=== PATIENT | female | born 1955 | race Caucasian/White ===

== ENCOUNTER → 2017-03-08 | Outpatient (CLI) | payer MEDICAID ==
[2017-03-08 11:46] LABS: BASOPHILS # (AUTO) 0.1 10^3/uL (0.0-0.1); BASOPHILS % (AUTO) 1 % (0-10); EOSINOPHILS # (AUTO) 0.2 10^3/uL (0.0-0.3); EOSINOPHILS % (AUTO) 3 % (0-10); LYMPHOCYTES # (AUTO) 2.1 X 10^3 (1.0-4.0); LYMPHOCYTES % (AUTO) 24 % (12-44); MEAN CORPUSCULAR HEMOGLOBIN 27 PG (25-34); MEAN CORPUSCULAR HGB CONC 32 G/DL (32-36); MEAN CORPUSCULAR VOLUME 84 FL (80-99); MEAN PLATELET VOLUME 10.5 FL (7.4-10.4); MONOCYTES # (AUTO) 0.4 X 10^3 (0.0-1.0); MONOCYTES % (AUTO) 5 % (0-12); NEUTROPHILS # (AUTO) 5.9 X 10^3 (1.8-7.8); NEUTROPHILS % (AUTO) 68 % (42-75); PLATELET COUNT 216 10^3/uL (130-400); RED BLOOD COUNT 4.88 10^6/uL (4.35-5.85); RED CELL DISTRIBUTION WIDTH 15.9 % (10.0-14.5); WHITE BLOOD COUNT 8.7 10^3/uL (4.3-11.0)
[2017-03-08 12:11] LABS: EOSINOPHILS % (MANUAL) 5 %; LYMPHOCYTES % (MANUAL) 19 %; NEUTROPHILS % (MANUAL) 71 %; REACTIVE LYMPHOCYTES 2 %
[2017-03-08 12:21] LABS: ERYTHROCYTE SEDIMENTATION RATE 6 MM/HR (0-30)
[2017-03-08 13:53] LABS: ALANINE AMINOTRANSFERASE 18 U/L (0-55); ANION GAP 11 MMOL/L (5-14); ASPARTATE AMINO TRANSFERASE 16 U/L (5-34); BILIRUBIN,TOTAL 0.6 MG/DL (0.1-1.0); BLOOD UREA NITROGEN 14 MG/DL (7-18); BUN/CREATININE RATIO 18; CALCIUM 9.5 MG/DL (8.5-10.1); CARBON DIOXIDE 22 MMOL/L (21-32); CHLORIDE 109 MMOL/L (98-107); CREATININE SERUM 0.78 MG/DL (0.60-1.30); GFR ESTIMATED > 60; GLUCOSE 92 MG/DL (70-105); POTASSIUM 3.4 MMOL/L (3.6-5.0); SODIUM 142 MMOL/L (135-145); TOTAL PROTEIN 6.3 G/DL (6.4-8.2)
[2017-03-10 07:36] LABS: GLOMERULAR BASEMENT MEMB ABY 1.6 (0.0-19.9)
== END ==
LOC: LAB 11:17
PROVIDERS: ATTEND Nurse Practitioner Family
DX: R59.0 Localized enlarged lymph nodes (principal)
CPT/HCPCS: 36415; 80053; 83880; 85007; 85027; 85652; 86003; 86021; 86038; 86141; 86256; 86430

== ENCOUNTER 2017-03-12 05:51 | Outpatient (CLI) | payer MEDICAID ==
[~2017-03-12] VITALS: Ht 165.1 cm; Wt 93.0 kg
[2017-03-12] MEDS ORDERED: CETI10TA17 PO (13:40)
[2017-03-12] MEDS ORDERED: ALBU90AE IH (13:40)
[2017-03-12] MEDS ORDERED: FURO40TA4 PO (13:40)
[2017-03-12] MEDS ORDERED: AMLO10TA2 PO (13:40)
[2017-03-12] MEDS ORDERED: FLUT1BLS IH (13:40)
[2017-03-12] MEDS ORDERED: TIOT18CA2 IH (13:40)
[2017-03-12] MEDS ORDERED: NITR0.4T39 SL (13:40)
[2017-03-12] MEDS ORDERED: PROM5SYR PO (13:40)
[2017-03-12] MEDS ORDERED: ALBU2.5V4 IH (13:40)
[2017-03-12] MEDS ORDERED: PARO30TA3 PO (13:40)
[2017-03-12] MEDS ORDERED: BNZ40T PO (13:40)
[2017-03-12] MEDS ORDERED: OMEP20TA33 PO (13:40)
[2017-03-12] MEDS ORDERED: GABA300C PO (13:40)
[2017-03-12] MEDS ORDERED: ATOR80TA76 PO (13:40)
[2017-03-12] MEDS ORDERED: ISM60TCR PO (13:40)
[2017-03-12] MEDS ORDERED: CLOP75TA69 PO (13:40)
[2017-03-12] MEDS ORDERED: MONT10TA24 PO (13:40)
[2017-03-12] MEDS ORDERED: POTA-51 PO (13:40)
[2017-03-12] MEDS ORDERED: CARV12.53 PO (13:40)
[2017-03-12] MEDS ORDERED: PRD10T PO (13:40)
[2017-03-12] MEDS ORDERED: DOXA4TAB2 PO (13:40)
[2017-03-12] MEDS ORDERED: APIX2.5T PO (13:40)
[2017-03-12] MEDS ORDERED: IBUP-1780 PO (13:40)
[2017-03-12] MEDS ORDERED: FLUT9.9S NS (13:40)
[2017-03-12] MEDS ORDERED: AMIO400T4 PO (13:40)
[2017-03-12] MEDS ORDERED: ZOLP5TAB7 PO (13:40)
[2017-03-12] MEDS ORDERED: OLAN10TA3 PO (13:40)
== END 2017-03-12 13:42 ==
LOC: PREOP 05:51
PROVIDERS: ATTEND Internal Medicine Critical Care Medicine
DX: Z01.818 Encounter for other preprocedural examination (principal); R06.09 Other forms of dyspnea; J45.909 Unspecified asthma, uncomplicated; R93.8 Abnormal findings on diagnostic imaging of other specified body structures; R59.0 Localized enlarged lymph nodes; Z77.22 Contact with and (suspected) exposure to environmental tobacco smoke (acute) (chronic)

== ENCOUNTER 2017-03-14 06:41 | Day surgery (SDC) | payer MEDICAID ==
[~2017-03-14] VITALS: Ht 165.1 cm; Wt 93.0 kg
[~2017-03-14 06:41] MED LIST: ALBU2.5V4 IH; ALBU90AE IH; AMIO400T4 PO; AMLO10TA2 PO; APIX2.5T PO; ATOR80TA76 PO; BNZ40T PO; CARV12.53 PO; CETI10TA17 PO; CLOP75TA69 PO; DOXA4TAB2 PO; FLUT1BLS IH; FLUT9.9S NS; FURO40TA4 PO; GABA300C PO; IBUP-1780 PO; ISM60TCR PO; MONT10TA24 PO; NITR0.4T39 SL; OLAN10TA3 PO; OMEP20TA33 PO; PARO30TA3 PO; POTA-51 PO; PRD10T PO; PROM5SYR PO; TIOT18CA2 IH; ZOLP5TAB7 PO
[2017-03-14] MEDS ORDERED: NS IV 1000 ML 1,000 ML IV PRN (06:50)
[2017-03-14] MEDS ORDERED: NS IV 1000 ML 1,000 ML ONE (06:51)
--- NOTE | 2017-03-14 06:51 | Progress Note-Pre Operative ---
Pre-Operative Progress Note H&P Reviewed The H&P was reviewed, patient examined and no changes noted. Date H&P Reviewed: March 14, 2017 Time H&P Reviewed: 06:50 Pre-Operative Diagnosis: DRISS Méndez DO March 14, 2017 06:51
[2017-03-14] MEDS ORDERED: NALOXONE 0.4 MG/ML 1 ML (NARCAN) VIAL IVP PRN (07:00)
[2017-03-14] MEDS ORDERED: FLUMAZENIL (ROMAZICON) 0.1 MG/ML 5 ML VIAL INJ PRN (07:00)
[2017-03-14] MEDS ORDERED: LIDOCAINE 4% INJ (XYLOCAINE) 5ML AMP INH ONE (07:04)
[2017-03-14 07:08] VITALS: BP 199/135
[2017-03-14] MEDS ORDERED: MIDAZOLAM 2 MG/2 ML (VERSED) VIAL ONE ×3 (07:15→07:16)
[2017-03-14] MEDS ORDERED: fentaNYL INJECTION 100 MCG/2 ML AMP ONE ×2 (07:15→07:38)
[2017-03-14] MEDS ORDERED: hydrALAZINE (APESOLINE) 20 MG/ML VIAL ONE (07:28)
[2017-03-14] MEDS: fentaNYL INJECTION 100 MCG/2 ML AMP IVP PRN ×4 (07:30→07:41)
[2017-03-14] MEDS: MIDAZOLAM 2 MG/2 ML (VERSED) VIAL IVP PRN ×4 (07:31→07:42)
--- NOTE | 2017-03-14 08:04 | Pulmonary Procedures ---
Pulmonary Procedures Date of Procedure Date of Service: March 14, 2017 Bronch Bronchoscopy with bronchoalveolar lavage (BAL), transbronchial washes and, brushes. with fluoroscopy Preop DX ILD Postop DX: same , no endobronchial mass Complications:Hypertension -- pt was given 10mg of hydralazine prior to bronch secondary to SBP >200. BP then decreased to SBP 186 After informed consent obtained and formal time out pt was sedated using Fentanyl and Versed. Bronchoscope was advanced through the nare and vocal cords. 1% lidocaine was used to anesthetize vocal cords, epiglottis, melecio, and left/right main stem bronchus. An anatomical tour was undertaken down to the segmental bronchi bilaterally. No endobronchial lesions noted. From the RML using fluoroscopy a bronchoalveolar lavage (BAL), transbronchial washes and, brushes were obtained. Pt tolerated procedure well. No complications noted. Stat CXR is pending. DRISS FUNES DO March 14, 2017 08:04
[2017-03-14 08:15] VITALS: BP 171/95
--- NOTE | 2017-03-14 08:44 | Diagnostic Imaging Report ---
INDICATION: Post bronchoscopy. Frontal chest obtained at 8:20 a.m. There is no prior study for comparison. FINDINGS: There is cardiomegaly. There is central vascular congestion. There is prominence of the right hilum. There is no pneumothorax or pleural fluid post-bronchoscopy. IMPRESSION: Cardiomegaly and central vascular prominence. There is right hilar prominence, adenopathy is not excluded. There is no pneumothorax following bronchoscopy. Dictated by: Dictated on workstation # [id number]
[2017-03-14 08:45] VITALS: BP 165/109
[2017-03-14] MEDS ORDERED: hydrALAZINE (APESOLINE) 20 MG/ML VIAL IV ONE (08:45)
[2017-03-14 09:00] VITALS: BP 165/109
[2017-03-14] MEDS ORDERED: LIDOCAINE JELLY 2% (XYLOCAINE) 30 ML TUBE TOP ONE (09:24)
[2017-03-14] MEDS ORDERED: LIDOCAINE PF 1% 2 ML AMP INJ ONE (09:24)
--- NOTE | 2017-03-14 09:59 | Diagnostic Imaging Report ---
EXAMINATION: Intraoperative view of the chest. INDICATION: Bronchoscopy performed by Dr. Thomas. FLUOROSCOPY TIME: 20 seconds of fluoroscopy time was utilized. IMPRESSION: The provided image demonstrates a bronchoscope projecting over the right perihilar region. Dictated by: Dictated on workstation # [id number]
== END 2017-03-14 09:00 | disposition home or self-care (01) ==
LOC: ENDO 06:41
PROVIDERS: ATTEND Internal Medicine Critical Care Medicine
DX: J84.9 Interstitial pulmonary disease, unspecified (principal); J45.909 Unspecified asthma, uncomplicated; J44.9 Chronic obstructive pulmonary disease, unspecified; G47.34 Idiopathic sleep related nonobstructive alveolar hypoventilation; Z77.22 Contact with and (suspected) exposure to environmental tobacco smoke (acute) (chronic); G47.50 Parasomnia, unspecified; R59.0 Localized enlarged lymph nodes
CPT/HCPCS: 71010; 87070; 87101; 87116; 87205; 94640

== ENCOUNTER → 2017-03-20 | Outpatient (CLI) | payer MEDICAID ==
--- NOTE | 2017-03-21 20:37 | ECHOCARDIOGRAPHY REPORT ---
DATE OF SERVICE: 03/20/2017 TRANSTHORACIC ECHOCARDIOGRAM REPORT ORDERING PHYSICIAN: Rosina Horan APRN. PRIMARY PHYSICIAN: Dr. Henriquez. CLINICAL DIAGNOSIS: Shortness of breath. MEASUREMENTS: LV diameter, diastolic 5.6. IVS thickness, diastolic 1.7. LVPW thickness, diastolic 1.3. Left atrium 6.1. DESCRIPTION: Two-dimensional echocardiography shows mild enlargement left ventricle and marked enlargement of the left atrium. There is mild to moderate concentric left ventricular hypertrophy. Global left ventricular systolic function is impaired. There appears to be global hypokinesis left ventricle. Left ventricular ejection fraction is estimated to be approximately 45 to 50%. There is biatrial enlargement. Doppler imaging shows mild mitral regurgitation and moderate tricuspid regurgitation. There is no Doppler evidence of significant valvular stenosis. There is a small amount of pericardial fluid, which does not appear to be of hemodynamic significance. Inferior vena cava is mildly dilated. She does appear to have inspiratory collapse. There is no evidence of significant intracardiac shunt on this transthoracic echocardiographic study. Pulmonary artery systolic pressure is estimated to be approximately 80 mmHg. Mitral inflow is consistent with grade II diastolic dysfunction of the left ventricle. CONCLUSIONS: 1. Pulmonary hypertension with an estimated pulmonary artery systolic pressure of approximately 80 mmHg. 2. Mild global hypokinesis of the left ventricle with a left ventricular ejection fraction of 45 to 50%. 3. Mild enlargement of left ventricle. 4. Marked enlargement of the left atrium. 5. Mild mitral annular calcification and mild aortic valve sclerosis without evidence of significant valvular stenosis. 6. Mild mitral regurgitation. 7. Moderate tricuspid regurgitation. 8. Small pericardial effusion without evidence of hemodynamic significance. 9. Moderate diastolic dysfunction of left ventricle is suggested on this study. Job ID: [id number] DocumentID: [id number] Dictated Date: 03/20/2017 16:48:13 Banquet Stewardess Date: 03/20/2017 22:37:31 Dictated By: ADALBERTO JUAN MD, MA, FACP, FACC, MTDD
== END ==
LOC: CARD 13:58
PROVIDERS: ATTEND Nurse Practitioner Family
DX: I08.3 Combined rheumatic disorders of mitral, aortic and tricuspid valves (principal); R06.09 Other forms of dyspnea
CPT/HCPCS: 93306

== ENCOUNTER 2017-07-10 09:52 | Inpatient (IN) | payer MEDICAID ==
[~2017-07-10] VITALS: Ht 165.1 cm; Wt 93.7 kg
[~2017-07-10 09:52] MED LIST changes: -ALBU2.5V4 IH; +ALBU2.5V4 NEB
--- NOTE | 2017-07-10 10:02 | Pulmonary Progress Note ---
Standard Progress Note Progress Notes Date Seen by Provider: Jul 10, 2017 Time Seen by Provider: 09:58 61 yo female who is being directly admitted from our office to the 4th floor for PNA R/O Pulmonary Hemorrhage. Pt denies hemoptysis but reports that her shortness of breath has worsened x 1 wk. Pt is known to our office and had bronch in February but was a no show to f/u appt. She was treated at that time for PNA. She did get a recent ct in [facility] and report noted b/l infiltrates. Please refer to office note from today's visit for further information. NAYE MCCABE APRN Jul 10, 2017 10:02
[2017-07-10 10:05] VITALS: BP 142/89
[2017-07-10] MEDS ORDERED: IOHEXOL 350 MG/ML 150 ML (OMNIPAQUE 350) VIAL IV ONE (10:45)
[2017-07-10] MEDS ORDERED: CATHETER FLUSH 10 ML SYR IV PRN (10:45)
[2017-07-10] MEDS ORDERED: NS 100 ML (IVPB) BAG IV ONE (10:45)
[2017-07-10] MEDS: RT-ALBUTEROL SULF 2.5 MG/3 ML PRE-MIX VIAL IH PRN (10:55)
[2017-07-10] MEDS ORDERED: OMEP20CA12 PO (11:01)
[2017-07-10] MEDS ORDERED: CARV6.252 PO (11:01)
[2017-07-10] MEDS ORDERED: CLOP75TA28 PO (11:01)
[2017-07-10] MEDS ORDERED: TIOT4MIS5 INH (11:01)
[2017-07-10] MEDS ORDERED: HYDR25TA4 PO (11:01)
[2017-07-10] MEDS: NS IV 1000 ML 1,000 ML IV SCH ×2 (11:28→23:12)
[2017-07-10] MEDS: methylPREDNISolone 40 MG/ML (Solu-MEDROL) VIAL IV SCH ×3 (11:28→22:28)
[2017-07-10] MEDS: FAMOTIDINE 20 MG (PEPCID) TABLET PO SCH ×2 (11:34→19:37)
[2017-07-10 11:38] LABS: BASOPHILS % (AUTO) 1 % (0-10); EOSINOPHILS # (AUTO) 0.3 10^3/uL (0.0-0.3); EOSINOPHILS % (AUTO) 3 % (0-10); LYMPHOCYTES # (AUTO) 2.4 X 10^3 (1.0-4.0); LYMPHOCYTES % (AUTO) 28 % (12-44); MEAN CORPUSCULAR HEMOGLOBIN 28 PG (25-34); MEAN CORPUSCULAR HGB CONC 33 G/DL (32-36); MEAN CORPUSCULAR VOLUME 85 FL (80-99); MEAN PLATELET VOLUME 11.4 FL (7.4-10.4); MONOCYTES # (AUTO) 0.5 X 10^3 (0.0-1.0); MONOCYTES % (AUTO) 6 % (0-12); NEUTROPHILS # (AUTO) 5.4 X 10^3 (1.8-7.8); NEUTROPHILS % (AUTO) 63 % (42-75); PLATELET COUNT 195 10^3/uL (130-400); RED BLOOD COUNT 4.95 10^6/uL (4.35-5.85); RED CELL DISTRIBUTION WIDTH 15.1 % (10.0-14.5); WHITE BLOOD COUNT 8.6 10^3/uL (4.3-11.0)
[2017-07-10 11:48] LABS: INR 1.1 (0.8-1.4); PROTHROMBIN TIME PATIENT 14.4 SEC (12.2-14.7)
[2017-07-10 12:00] VITALS: BP 165/83
[2017-07-10 12:05] LABS: ALANINE AMINOTRANSFERASE 16 U/L (0-55); ALBUMIN 3.8 GM/DL (3.2-4.5); ANION GAP 10 MMOL/L (5-14); ASPARTATE AMINO TRANSFERASE 20 U/L (5-34); BLOOD UREA NITROGEN 11 MG/DL (7-18); BUN/CREATININE RATIO 15; CALCIUM 9.5 MG/DL (8.5-10.1); CARBON DIOXIDE 23 MMOL/L (21-32); CHLORIDE 110 MMOL/L (98-107); CREATININE SERUM 0.72 MG/DL (0.60-1.30); GFR ESTIMATED > 60; GLUCOSE 96 MG/DL (70-105); POTASSIUM 3.5 MMOL/L (3.6-5.0); SODIUM 143 MMOL/L (135-145); TOTAL PROTEIN 6.5 GM/DL (6.4-8.2)
[2017-07-10 13:59] LABS: BILIRUBIN,URINE NEGATIVE (NEGATIVE); KETONES,URINE NEGATIVE (NEGATIVE); LEUKOCYTE ESTERASE ,URINE 3+ (NEGATIVE); NITRITE,URINE NEGATIVE (NEGATIVE); PH,URINE 7 (5-9); PROTEIN,URINE 2+ (NEGATIVE); UROBILINOGEN,URINE NORMAL (NORMAL)
[2017-07-10 14:09] LABS: WBC,URINE 25-50 /HPF
[2017-07-10] MEDS ORDERED: CYCL10TA9 PO (14:18)
[2017-07-10] MEDS ORDERED: RT-ALBUINH INH (14:22)
[2017-07-10] MEDS ORDERED: FLUT16SP22 NS (14:27)
[2017-07-10] MEDS: RT-ALBUTEROL SULF 2.5 MG/3 ML PRE-MIX VIAL IH SCH ×2 (15:05→21:58)
[2017-07-10 15:30] VITALS: BP 150/90
--- NOTE | 2017-07-10 15:34 | Diagnostic Imaging Report ---
PROCEDURE: CT angiography of the chest with contrast. TECHNIQUE: Multiple contiguous axial images were obtained through the chest after uneventful bolus administration of intravenous contrast. Reconstructed CTA MIP acquisitions were also performed. INDICATION: Shortness of breath. Wheezing. 125 ML of Omnipaque 350 was administered intravenously. FINDINGS: The thyroid gland is heterogenous and is enlarged, more on the right side with the right thyroid lobe measuring in axial dimensions 5.8 x 4.2 cm. Further evaluation with thyroid ultrasound is recommended. There are multiple moderately enlarged mediastinal lymph nodes such as a right paratracheal lymph node measuring 1.6 cm superiorly and 1.9 cm inferiorly, infracarinal lymph node measuring 1.7 cm and aortopulmonary window lymph node measuring 1.7 cm. There are also bilateral hilar lymph nodes up to 1.5 cm on the left and 1.2 cm on the right side. These are measured in short axis. There are no significantly enlarged axillary lymph nodes seen. There is cardiomegaly with a small to moderate pericardial effusion. The left atrium and to some extent, to the right atrium also, are particularly dilated. The pulmonary arteries are well opacified with no filling defects seen to suggest pulmonary embolism. Prominent coronary artery calcifications in the left carotid artery distribution are seen. The lungs demonstrate patchy areas of air-trapping without significant consolidation, mass, or suspicious nodule. There are no emphysema changes and no bronchiectasis seen. There is mild subsegmental atelectasis near the lower aspect of the left major fissure. The osseous structures demonstrate multilevel Schmorl's nodes. Sections of the upper abdomen appear grossly unremarkable. Cholecystectomy clips are seen. IMPRESSION: 1. There is prominent mediastinal and bilateral hilar lymphadenopathy. 2. Cardiomegaly with a small to moderate pericardial effusion seen. There is dilatation of the atria. Prominent coronary artery calcifications are seen. 3. Patchy areas of air-trapping are seen in the lungs. Dictated by: Dictated on workstation # [id number]
[2017-07-10 19:25] VITALS: BP 182/98
[2017-07-10] MEDS: CARVEDILOL 6.25 MG (COREG) TAB PO SCH (19:37)
[2017-07-10 23:05] VITALS: BP 185/75
[2017-07-10] MEDS ORDERED: CARVEDILOL 6.25 MG (COREG) TAB PO ONE (23:15)
[2017-07-11 00:25] VITALS: BP 182/83
[2017-07-11] MEDS: RT-ALBUTEROL SULF 2.5 MG/3 ML PRE-MIX VIAL IH SCH ×5 (02:36→21:53)
[2017-07-11 04:00] VITALS: BP 186/89
[2017-07-11] MEDS: methylPREDNISolone 40 MG/ML (Solu-MEDROL) VIAL IV SCH ×4 (04:31→22:39)
[2017-07-11] MEDS: RT-ALBUTEROL SULF 2.5 MG/3 ML PRE-MIX VIAL IH PRN (05:51)
[2017-07-11] MEDS ORDERED: MIDAZOLAM 2 MG/2 ML (VERSED) VIAL ONE (06:53)
[2017-07-11] MEDS ORDERED: PROPOFOL INJECTION 0 ML IV ONE (06:53)
[2017-07-11] MEDS ORDERED: proPOfol 200 MG/20 ML (DIPRIVAN) VIAL IV ONE (06:56)
[2017-07-11] MEDS ORDERED: fentaNYL INJECTION 100 MCG/2 ML AMP ONE (06:57)
[2017-07-11] MEDS ORDERED: ONDANSETRON 4 MG/2 ML (SDV) Z0FRAN ONE (06:57)
[2017-07-11] MEDS ORDERED: LIDOCAINE PF 2% 5 ML (XYLOCAINE) VIAL ONE (06:57)
--- NOTE | 2017-07-11 07:03 | Pulmonary Consultation ---
History of Present Illness History of Present Illness Date of Consultation 07/11/17 06:58 Time Seen by Provider: 06:58 Date of Admission History of Present Illness 61 yo who was directly admitted from my office to the 4th floor yesterday secondary to worsening SOB and wheezing. Pt had an out patient bronchoscopy in February which was suggestive of pulmonary hemorrhage and grew out strep pneumonia. PT was treated with abx and then failed to f/u at followup appt. Over the last week patients SOB has been getting much worse. She denies hemoptysis however has been having subjective fevers. Recent CT report from [place] showed bilateral infiltrates. Pt states she has not been able to sleep at night secondary to severe SOB. Pt did have autoimmune workup done as outpatient which was all negative. Allergies and Home Medications Allergies Coded Allergies: Penicillins (Verified Allergy, Unknown, 03/12/17) Sulfa (Sulfonamide Antibiotics) (Verified Allergy, Unknown, 03/12/17) adhesive tape (Verified Allergy, Unknown, 03/12/17) Home Medications Albuterol Sulfate 2.5 Mg/3 Ml Vial.neb, 2.5 MG NEB Q4H PRN for SHORTNESS OF BREATH, (Reported) Albuterol Sulfate 1 Puff Puff, 2 PUFF INH Q4H PRN for SHORTNESS OF BREATH, ( Reported) Carvedilol 6.25 Mg Tablet, 6.25 MG PO BID, (Reported) Clopidogrel Bisulfate 75 Mg Tablet, 75 MG PO DAILY, (Reported) Cyclobenzaprine HCl 10 Mg Tablet, 10 MG PO TID PRN for MUSCLE SPASMS, (Reported) Fluticasone Propionate 16 Gm [place].susp, 2 SPRAY NS DAILY PRN for ALLERGIES, ( Reported) Hydrochlorothiazide 25 Mg Tablet, 25 MG PO DAILY, (Reported) Montelukast Sodium 10 Mg Tablet, 10 MG PO DAILY, (Reported) Nitroglycerin 0.4 Mg Tab.subl, 0.4 MG SL UD PRN for CHEST PAIN, (Reported) Omeprazole 20 Mg Capsule.dr, 20 MG PO DAILY PRN for HEARTBURN, (Reported) Tiotropium [place] 4 Gm Mist.inhal, 2 PUFF INH DAILY, (Reported) Past [id number]-[id number]-Gmzemx Hx Patient Social History Alcohol Use: Denies Use Recreational Drug Use: No Smoking Status: Never a Smoker Recent Foreign Travel: No Contact w/Someone Who Travel: No Recent Infectious Disease Expo: No Recent Hopitalizations: Yes (LUNG ISSUES-02/2017) Seasonal Allergies Seasonal Allergies: Yes Surgeries History of Surgeries: Yes (biospsy left breast) Respiratory History of Respiratory Disorde: Yes (O2 HS) Respiratory Disorders: Sleep Apnea, COPD Cardiovascular History of Cardiac Disorders: Yes (STENTS) Cardiac Disorders: High Cholesterol, Hypertension, Irregular Heartbeat Neurological History of Neurological Disord: No Reproductive System Hx Reproductive Disorders: No Sexually Transmitted Disease: No HIV/AIDS: No Genitourinary History of Genitourinary Disor: No Genitourinary Disorders: UTI-Chronic Gastrointestinal History of Gastrointestinal Di: Yes Gastrointestinal Disorders: Gastroesophageal Reflux Musculoskeletal History of Musculoskeletal Dis: Yes Musculoskeletal Disorders: Chronic Back Pain Endocrine History of Endocrine Disorders: Yes HEENT Loss of Vision: Bilateral Hearing Impairment: Denies Cancer History of Cancer: No Psychosocial History of Psychiatric Problem: Yes Behavioral Health Disorders: Anxiety, Depression Integumentary History of Skin or Integumenta: No Blood Transfusions History of Blood Disorders: No Adverse Reaction to a Blood Tr: No (N/A) Family Medical History Family Medial History: Myocardial infarction 19 FATHER G8 SISTER Review of Systems Time Seen by Provider: 08:56 Constitutional: Fever, Sweats, Weakness, Malaise Eyes: No: Pain, Vision change, Conjunctivae inflammation, Eyelid inflammation, Other, Redness ENT: No: Ear pain, Ear discharge, Nose pain, Nose discharge, Nose congestion, Mouth pain, Mouth swelling, Throat pain, Throat swelling, Other Respiratory: Cough, Dry, Shortness of breath, SOB with excertion, Wheezing, No : Hemoptysis, Pleuritic Pain Cardiovascular: Orthopnea, Paroxysmal Noc. Dyspnea, Edema, No: Chest Pain, Palpitations, Lt Headedness, Other Gastrointestinal: No: Nausea, Vomiting, Abdominal Pain, Diarrhea, Constipation , Melena, Hematochezia, Other Neurological: Weakness Exam Exam Vital Signs Date Time Temp Pulse Resp B/P (MAP) Pulse Ox O2 Delivery O2 Flow Rate FiO2 07/11/17 05:52 98 Nasal Cannula 2.00 07/11/17 04:00 97.9 73 19 186/89 93 Nasal Cannula 2.00 07/11/17 01:00 74 07/11/17 00:25 98.9 78 19 182/83 96 Nasal Cannula 2.00 07/10/17 23:05 75 185/75 98 Nasal Cannula 2.00 07/10/17 21:58 95 Room Air 07/10/17 20:12 Nasal Cannula 2.00 07/10/17 19:25 98.2 72 34 182/98 98 Nasal Cannula 2.00 07/10/17 19:00 95 07/10/17 15:30 98.5 76 20 150/90 95 Room Air 07/10/17 15:06 95 Room Air 07/10/17 14:50 80 07/10/17 12:08 75 07/10/17 12:00 98.2 70 32 165/83 96 Room Air 07/10/17 10:55 96 Room Air 07/10/17 10:05 97.7 83 36 142/89 98 Room Air General Appearance: Anxious, Mild Distress, Obese Neck: Non Tender, Supple Respiratory: Accessory Muscle Use (conversational dyspnea), Decreased Breath Sounds Gastrointestinal: normal bowel sounds, non tender, soft, no organomegaly Extremity: Pedal Edema Neurologic/Psychiatric: Alert, Oriented x3 Skin: Normal Color, Warm/Dry Results Lab Laboratory Tests 07/10/17 11:15 Assessment/Plan Assessment/Plan COPDAE/Acute bronchitis -SVNs, advair -Solumedrol -Check BNP Mediastinal lymphadenopathy -Will repeat CT scan as out patient -Pt may need EBUS Pericardial effusion -check echocardiogram Allergic rhinitis -Singulair, Claritin HIRO - 255 CT scan reviewed no signs of pulmonary hemorrhage. Clinical Quality Measures DVT/VTE Risk/Contraindication: Risk Factor Score Per Nursin RFS Level Per Nursing on Admit: 4+=Very High DRISS FUNES DO Jul 11, 2017 07:03
[2017-07-11 08:04] VITALS: BP 190/88
[2017-07-11] MEDS: MONTELUKAST 10 MG (SINGULAIR) TAB PO SCH (08:17)
[2017-07-11] MEDS: CARVEDILOL 6.25 MG (COREG) TAB PO SCH (08:17)
[2017-07-11] MEDS: FAMOTIDINE 20 MG (PEPCID) TABLET PO SCH ×2 (08:17→20:31)
[2017-07-11] MEDS: LORATADINE (CLARITIN) 10 MG TAB PO SCH (08:17)
[2017-07-11] MEDS: NS IV 1000 ML 1,000 ML IV SCH ×2 (08:19→16:43)
[2017-07-11] MEDS ORDERED: HYDROCHLOROTHIAZIDE 25 MG (HCTZ) TAB PO SCH (09:00)
[2017-07-11] MEDS ORDERED: KCL 20 MEQ TAB (K-DUR) PO NR ×2 (09:09→14:00)
[2017-07-11] MEDS: RT-ADVAIR HFA 115/21 MCG PER PUFF IH SCH ×2 (10:42→21:53)
--- NOTE | 2017-07-11 11:49 | History & Physical-Hospitalist ---
HPI History of Present Illness: HPI/Chief Complaint CC: Shortness of breath HPI: This is a 61-year-old lifetime nonsmoker white female that presents to the hospital as a direct admission for Dr. Thomas's office for shortness of breath. Her primary care provider is Dr. Henriquez at [facility]. She reports a history of asthma minimal problems with it but had a change of her status 2 weeks ago and began having more shortness of breath. She obtain an appointment with Dr. Thomas who evaluated her to be wheezing placed on IV steroids and workup was completed that now shows a pericardial effusion echocardiogram was just completed and I did confer with cardiology who will see her in consultation. She denies any history of sleep apnea or sleeping with the machine at night for oxygen. She is anxious about shortness of breath. 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) Alcohol Use: Denies Use Recreational Drug Use: No Smoking Status: Never a Smoker Physical Abuse Screen: No Sexual Abuse: No Recent Foreign Travel: No Contact w/other who traveled: No Recent Hopitalizations: Yes (LUNG ISSUES-02/2017) Recent Infectious Disease Expo: No Seasonal Allergies Seasonal Allergies: Yes Surgeries Yes (biopsy left breast) Respiratory Yes Asthma Cardiovascular Yes (STENTS) Coronary Artery Disease, High Cholesterol, Hypertension, Irregular Heartbeat Neurological No Reproductive System Hx Reproductive Disorders: No Sexually Transmitted Disease: No HIV/AIDS: No Genitourinary No UTI-Chronic Gastrointestinal Yes Gastroesophageal Reflux Musculoskeletal Yes Chronic Back Pain Endocrine History of Endocrine Disorders: Yes HEENT Loss of Vision: Bilateral Hearing Impairment: Denies Cancer No Psychosocial History of Psychiatric Problem: Yes Behavioral Health Disorders: Anxiety, Depression Integumentary History of Skin or Integumenta: No Blood Transfusions History of Blood Disorders: No Adverse Reaction to a Blood Tr: No (N/A) Family Medical History Family Hx: Myocardial infarction 19 FATHER G8 SISTER Review of Systems Constitutional: see HPI, weakness EENTM: no symptoms reported Respiratory: dyspnea on exertion, short of breath, wheezing Cardiovascular: palpitations Gastrointestinal: no symptoms reported Musculoskeletal: no symptoms reported Skin: no symptoms reported Psychiatric/Neurological: No Symptoms Reported All Other Systems Reviewed Negative Unless Noted: Yes Physical Exam Physical Exam Vital Signs Vital Sign - Last 12Hours 07/10/17 07/10/17 10:05 19:25 Temp 97.7 Pulse 83 Resp 36 B/P (MAP) 142/89 Pulse Ox 98 O2 Delivery Room Air O2 Flow Rate 2.00 Capillary Refill : General Appearance: WD/WN, Chronically ill, Mild Distress (due to dyspnea), Obese Eyes: Bilateral Eye Normal Inspection, Bilateral Eye PERRL HEENT: PERRL/EOMI, Normal ENT Inspection, Pharynx Normal Neck: Full Range of Motion, Normal Inspection, Non Tender, Supple, Carotid Bruit Respiratory: Chest Non Tender, No Accessory Muscle Use, No Respiratory Distress , Decreased Breath Sounds, Wheezing Cardiovascular: Regular Rate, Rhythm, No Edema, No Gallop, No JVD, No Murmur, Normal Peripheral Pulses, Other (extra systoles) Gastrointestinal: Normal Bowel Sounds, No Organomegaly, No Pulsatile Mass, Non Tender, Soft Back: Normal Inspection, No CVA Tenderness, No Vertebral Tenderness Extremity: Normal Capillary Refill, Normal Inspection, Normal Range of Motion, Non Tender, No Calf Tenderness, No Pedal Edema Neurologic/Psychiatric: Alert, Oriented x3, No Motor/Sensory Deficits, Normal Mood/Affect Skin: Normal Color, Warm/Dry Lymphatic: No Adenopathy Results Results/Procedures Lab Laboratory Tests 07/10/17 11:15 Assessment/Plan Admission Diagnosis Assessment: Shortness of breath with wheezing in an asthmatic with worsened control over the past [address] scan showing pericardial effusion moderate amount an elevated BNP indicating volume overload with PVCs on telemetry Hypertension [id number] with systolic of 182 permissive hypertension per cardiology in management until patient is seen by cardiology HTN CAD Assessment and Plan Plan: Cardiology consultation with echocardiogram review for moderate pericardial effusion management IV steroids Nebulas treatments Oxygen Reconciled all home meds Monitor blood pressure but will not treat until cardiology makes decision because of pericardial effusion Monitor on escape wheel tooth cutter closely Clinical Quality Measures DVT/VTE Risk/Contraindication: Risk Factor Score Per Nursin RFS Level Per Nursing on Admit: 4+=Very High MIGEL MCGUIRE DO Jul 11, 2017 11:49
[2017-07-11 12:00] VITALS: BP 180/80
[2017-07-11] MEDS ORDERED: FLUTICASONE NASAL SPRAY (FLONASE) 16 GM BTL NS PRN (12:00)
[2017-07-11] MEDS ORDERED: RT-ALBUTEROL SULF 2.5 MG/3 ML PRE-MIX VIAL IH PRN ×2 (12:00→12:30)
[2017-07-11] MEDS ORDERED: NITROGLYCERIN 0.4 MG SL TABS BTL 25'S SL PRN (12:00)
--- NOTE | 2017-07-11 13:44 | Consultation-Cardiology ---
HPI-Cardiology Cardiology Consultation: Date of Consultation 07/11/17 Time Seen by Provider: 13:10 Date of Admission Attending Physician Omid Chand MD Admitting Physician Conner Henriquez MD Consulting Physician ADALBERTO JUAN MD, MA, FACP, FACC, FSCAI, CCDS HPI: Chief Complaint: Shortness of breath HPI: 61 yo woman with chronic exertional shortness of breath that has progressed significantly in the last two week. Has had chills at home, but no documented fever. Denies palp or syncope. Gets short of breath with minimal exertion. Denies ankle swelling Chest pains: sharp, lasting a few seconds, L parasternal, nonexertional, w/o aggravating or relieving factors, nonradiating, frequent, unchanged in the recent past Review of Systems-Cardiology Review of Systems Constitutional: malaise, tiredness, No weight loss, No weight gain Eyes: No vision change Ears/Nose/Throat: No ear discharge, No recent hearing loss Respiratory: As described under HPI Cardiovascular: As described under HPI Gastrointestinal: No constipation, No diarrhea, No nausea, No vomiting Genitourinary: No dysuria, No hematuria, No other Musculoskeletal: back pain (chronic) Skin: No rash, No ulcerations Psychiatric/Neurological: No seizure, No focal weakness, No syncope Hematologic: No bleeding abnormalities All Other Systems Reviewed Negative Unless Noted: Yes [id number]-Wvuanf Hx Patient Social History 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 Family Medical History Family History: Myocardial infarction 19 FATHER G8 SISTER Allergies and Home Medications Allergies Coded Allergies: Penicillins (Verified Allergy, Unknown, 03/12/17) Sulfa (Sulfonamide Antibiotics) (Verified Allergy, Unknown, 03/12/17) adhesive tape (Verified Allergy, Unknown, 03/12/17) Home Medications Albuterol Sulfate 2.5 Mg/3 Ml Vial.neb, 2.5 MG NEB Q4H PRN for SHORTNESS OF BREATH, (Reported) Albuterol Sulfate 1 Puff Puff, 2 PUFF INH Q4H PRN for SHORTNESS OF BREATH, ( Reported) Carvedilol 6.25 Mg Tablet, 6.25 MG PO BID, (Reported) Clopidogrel Bisulfate 75 Mg Tablet, 75 MG PO DAILY, (Reported) Cyclobenzaprine HCl 10 Mg Tablet, 10 MG PO TID PRN for MUSCLE SPASMS, (Reported) Fluticasone Propionate 16 Gm [place].susp, 2 SPRAY NS DAILY PRN for ALLERGIES, ( Reported) Hydrochlorothiazide 25 Mg Tablet, 25 MG PO DAILY, (Reported) Montelukast Sodium 10 Mg Tablet, 10 MG PO DAILY, (Reported) Nitroglycerin 0.4 Mg Tab.subl, 0.4 MG SL UD PRN for CHEST PAIN, (Reported) Omeprazole 20 Mg Capsule.dr, 20 MG PO DAILY PRN for HEARTBURN, (Reported) Tiotropium [place] 4 Gm Mist.inhal, 2 PUFF INH DAILY, (Reported) Physical Exam-Cardiology Physical Exam Vital Signs/I&O Vital Sign - Last 12Hours 07/11/17 07/11/17 07/11/17 07/11/17 04:00 05:52 08:04 10:44 Temp 97.9 96.2 Pulse 73 81 Resp 19 32 B/P (MAP) 186/89 190/88 Pulse Ox 93 98 96 96 O2 Delivery Nasal Cannula Nasal Cannula Nasal Cannula Room Air O2 Flow Rate 2.00 2.00 2.00 07/11/17 07/11/17 10:46 12:00 Temp 97.6 Pulse 66 Resp 26 B/P (MAP) 180/80 Pulse Ox 97 O2 Delivery Room Air Nasal Cannula O2 Flow Rate 2.00 Capillary Refill : Constitutional: AAO x 3, well-developed, well-nourished HEENT: PERRL, oral hygience is good, No xanthelasmas are seen Neck: carotid pulses are 2 + bilaterally, with good upstrokes Respiratory: No accessory muscle use, lungs clear to percussion, other (Fair to good air entry; exp wheezes) Cardiovascular: regular rate-rhythm, S1 and S2, systolic murmur (faint LAVON at cardiac base) Gastrointestinal: No tender, soft, No guarding, No rebound, audible bowel sounds Extremities: No cyanosis, No significant edema Neurologic/Psychiatric: oriented x 3, grossly intact, power is 5/5 both on sides Skin: No rash on exposed areas, No ulcerations on exposed areas Data Review Labs Laboratory Tests 07/11/17 09:57: B-Type Natriuretic Peptide 719.3H Microbiology 07/10/17 Urine Culture - Preliminary, Resulted Laboratory Tests 07/10/17 11:15 A/P-Cardiology Assessment/Admission Diagnosis Shortness of breath, multifactorial (as described below) Acute exac of COPD Obesity-hypoventilation and sleep apnea syndrome Acute diastolic CHF due to uncontrolled hypertension Echo of 07/11/17: LVEF 60-65%, small to mod pericard eff w/o evidence of hemodynamic significance (not significantly changed from an echo study of February 2017), mod concentric LVH, RVSP approx 60 mmHg Pulmonary hypertension of undetermined etiology. PASP estimated to be approx 80 mmHg on echo of February 2017. RVSP estimated to be approx 60 mmHg on echo of 07/11/17 CAD. Her primary regulatory affairs coordinator is Dr Knapp at [facility] who has done coronary intervention on her and last saw her in February 2017, according to the patient Discussion and Recomendations * I discussed her case with Dr Sepulveda * Augment antihypertensive regimen * Treat with diuretics for probable ac diastolic CHF * Repeat echo in 48 hours to make sure pericard eff is not worsening. It does seem relatively stable today compared to a study of February 2017. There is no clinical or echo evidence of tamponade * Monitor labs Clinical Quality Measures DVT/VTE Risk/Contraindication: Risk Factor Score Per Nursin RFS Level Per Nursing on Admit: 4+=Very High ADALBERTO JUAN MD FACP FAC CCDS Jul 11, 2017 13:44
[2017-07-11] MEDS ORDERED: meTOprolol SUCCINATE 100 MG (TOPROL XL) TAB PO NR (14:00)
[2017-07-11] MEDS ORDERED: ASPIRIN 81 MG CHEW (CHILDREN'S ASA) PO NR (14:00)
[2017-07-11] MEDS ORDERED: lisINopril 20 MG (ZESTRIL) TAB PO NR (14:00)
[2017-07-11] MEDS ORDERED: FUROSEMIDE 40 MG/4 ML INJ (LASIX) IVP NR (14:00)
[2017-07-11] MEDS: ENOXAPARIN 40 MG/0.4 ML (LOVENOX) SYR SC SCH (14:19)
[2017-07-11 16:00] VITALS: BP 144/97
[2017-07-11] MEDS: CYCLOBENZAPRINE 10 MG (FLEXERIL) TAB PO PRN (16:43)
[2017-07-11 20:00] VITALS: BP 161/84
[2017-07-12 00:15] VITALS: BP 172/81
[2017-07-12] MEDS: RT-ALBUTEROL SULF 2.5 MG/3 ML PRE-MIX VIAL IH SCH ×4 (03:00→20:22)
[2017-07-12 04:18] VITALS: BP 160/83
[2017-07-12] MEDS: methylPREDNISolone 40 MG/ML (Solu-MEDROL) VIAL IV SCH ×4 (05:08→21:43)
[2017-07-12 06:21] LABS: BASOPHILS % (AUTO) 0 % (0-10); EOSINOPHILS % (AUTO) 0 % (0-10); LYMPHOCYTES # (AUTO) 1.1 X 10^3 (1.0-4.0); LYMPHOCYTES % (AUTO) 9 % (12-44); MEAN CORPUSCULAR HEMOGLOBIN 28 PG (25-34); MEAN CORPUSCULAR HGB CONC 32 G/DL (32-36); MEAN CORPUSCULAR VOLUME 86 FL (80-99); MEAN PLATELET VOLUME 12.3 FL (7.4-10.4); MONOCYTES # (AUTO) 0.2 X 10^3 (0.0-1.0); MONOCYTES % (AUTO) 2 % (0-12); NEUTROPHILS # (AUTO) 11.1 X 10^3 (1.8-7.8); NEUTROPHILS % (AUTO) 89 % (42-75); PLATELET COUNT 177 10^3/uL (130-400); RED BLOOD COUNT 4.79 10^6/uL (4.35-5.85); RED CELL DISTRIBUTION WIDTH 15.3 % (10.0-14.5); WHITE BLOOD COUNT 12.4 10^3/uL (4.3-11.0)
--- NOTE | 2017-07-12 06:25 | Pulmonary Progress Note ---
Subjective Time Seen by Provider: 06:21 Subjective/Events-last exam Pt feels improved. NO complications noted. Exam Exam Vital Signs Date Time Temp Pulse Resp B/P (MAP) Pulse Ox O2 Delivery O2 Flow Rate FiO2 07/12/17 04:18 97.3 62 18 160/83 99 Nasal Cannula 2.00 07/12/17 03:15 Nasal Cannula 2.00 07/12/17 01:00 64 07/12/17 00:15 97.7 70 16 172/81 99 Nasal Cannula 2.00 07/11/17 22:00 98 Nasal Cannula 2.00 07/11/17 21:54 97 Nasal Cannula 2.00 07/11/17 20:30 Nasal Cannula 2.00 07/11/17 20:00 97.3 93 24 161/84 94 Nasal Cannula 2.00 07/11/17 19:00 69 07/11/17 16:00 97.3 76 20 144/97 95 Nasal Cannula 2.00 07/11/17 15:55 96 Nasal Cannula 1.00 07/11/17 13:00 93 07/11/17 12:00 97.6 66 26 180/80 97 Nasal Cannula 2.00 07/11/17 10:46 Room Air 07/11/17 10:44 96 Room Air 07/11/17 08:04 96.2 81 32 190/88 96 Nasal Cannula 2.00 General Appearance: WD/WN, Chronically ill, Mild Distress (due to dyspnea), Obese HEENT: PERRL/EOMI, Normal ENT Inspection, Pharynx Normal Neck: Full Range of Motion, Normal Inspection, Non Tender, Supple, Carotid Bruit Respiratory: Chest Non Tender, No Accessory Muscle Use, No Respiratory Distress , Decreased Breath Sounds, Wheezing Cardiovascular: Regular Rate, Rhythm, No Edema, No Gallop, No JVD, No Murmur, Normal Peripheral Pulses, Other (extra systoles) Gastrointestinal: normal bowel sounds, non tender, soft, no organomegaly Extremity: Normal Capillary Refill, Normal Inspection, Normal Range of Motion, Non Tender, No Calf Tenderness, No Pedal Edema Neurologic/Psychiatric: Alert, Oriented x3, No Motor/Sensory Deficits, Normal Mood/Affect Skin: Normal Color, Warm/Dry Lymphatic: No Adenopathy Results Lab Laboratory Tests 07/10/17 11:15 Assessment/Plan Assessment/Plan COPDAE/Acute bronchitis -SVNs, advair -Solumedrol Acute Diastolic CHFAE EF 60-65 % Mediastinal lymphadenopathy -Will repeat CT scan as out patient -Pt may need EBUS small to moderate Pericardial effusion -Cardiology is following PUlmonary HTN probably group III Allergic rhinitis -Wendy Yusuf 255 Clinical Quality Measures DVT/VTE Risk/Contraindication: Risk Factor Score Per Nursin RFS Level Per Nursing on Admit: 4+=Very High DRISS FUNES DO Jul 12, 2017 06:25
[2017-07-12 06:43] LABS: ALANINE AMINOTRANSFERASE 17 U/L (0-55); ALBUMIN 3.7 GM/DL (3.2-4.5); ANION GAP 10 MMOL/L (5-14); ASPARTATE AMINO TRANSFERASE 15 U/L (5-34); BILIRUBIN,TOTAL 0.5 MG/DL (0.1-1.0); BLOOD UREA NITROGEN 22 MG/DL (7-18); BUN/CREATININE RATIO 24; CARBON DIOXIDE 20 MMOL/L (21-32); CHLORIDE 111 MMOL/L (98-107); CREATININE SERUM 0.91 MG/DL (0.60-1.30); GFR ESTIMATED > 60; GLUCOSE 165 MG/DL (70-105); MAGNESIUM 1.8 MG/DL (1.8-2.4); POTASSIUM 3.8 MMOL/L (3.6-5.0); SODIUM 141 MMOL/L (135-145)
[2017-07-12] MEDS ORDERED: PANTOPRAZOLE 20 MG TABLET (PROTONIX) PO PRN (07:00)
[2017-07-12 07:03] LABS: THYROID STIMULATING HORMONE 0.27 UIU/ML (0.35-4.94)
[2017-07-12] MEDS: KCL 20 MEQ TAB (K-DUR) PO SCH (07:27)
[2017-07-12] MEDS: ASPIRIN 81 MG CHEW (CHILDREN'S ASA) PO SCH (08:00)
[2017-07-12] MEDS: MONTELUKAST 10 MG (SINGULAIR) TAB PO SCH (08:01)
[2017-07-12] MEDS: FUROSEMIDE 40 MG/4 ML INJ (LASIX) IVP SCH (08:01)
[2017-07-12] MEDS: LORATADINE (CLARITIN) 10 MG TAB PO SCH (08:01)
[2017-07-12] MEDS: lisINopril 20 MG (ZESTRIL) TAB PO SCH (08:01)
[2017-07-12] MEDS: meTOprolol SUCCINATE 100 MG (TOPROL XL) TAB PO SCH (08:01)
[2017-07-12] MEDS: FAMOTIDINE 20 MG (PEPCID) TABLET PO SCH ×2 (08:01→21:43)
[2017-07-12 08:30] VITALS: BP 169/85
--- NOTE | 2017-07-12 10:15 | Progress Note-Cardiology ---
Cardiology SOAP Progress Note Subjective: Sitting up in a chair at the bedside. Reports continued shortness of breath. No c/o CP, palpitations, syncope or near syncope. Objective: I&O/Vital Signs Vital Sign - Last 12Hours 07/12/17 07/12/17 07/12/17 07/12/17 08:30 09:00 12:00 13:00 Temp 97.3 96.4 Pulse 74 78 77 Resp 24 26 B/P (MAP) 169/85 Pulse Ox 97 98 O2 Delivery Nasal Cannula Nasal Cannula Room Air O2 Flow Rate 2.00 2.00 2.00 07/12/17 07/12/17 07/12/17 07/12/17 14:27 14:28 15:15 17:05 Temp 97.5 Pulse 70 Resp 24 B/P (MAP) 166/87 Pulse Ox 97 97 97 O2 Delivery Nasal Cannula Room Air Room Air Nasal Cannula O2 Flow Rate 2.00 2.00 2.00 Intake and Output 07/13/17 00:00 Intake Total 540 ml Output Total 750 ml Balance -210 ml Weight (Pounds): 210 Weight (Ounces): 0.0 Weight (Calculated Kilograms): 95.003902 Constitutional: AAO x 3, well-developed, well-nourished Respiratory: No accessory muscle use, lungs clear to percussion, other (Fair to good air entry; exp wheezes) Cardiovascular: irregularly irregular, S1 and S2, systolic murmur (faint LAVON at cardiac base) Gastrointestional: No tender, soft, No guarding, No rebound, audible bowel sounds Extremities: No cyanosis, No significant edema Neurologic/Psychiatric: oriented x 3, grossly intact, power is 5/5 both on sides Skin: No rash on exposed areas, No ulcerations on exposed areas Results/Procedures: Labs Laboratory Tests 07/12/17 05:27: White Blood Count 12.4H, Red Blood Count 4.79, Hemoglobin 13.4, Hematocrit 41, Mean Corpuscular Volume 86, Mean Corpuscular Hemoglobin 28, Mean Corpuscular Hemoglobin Concent 32, Red Cell Distribution Width 15.3H, Platelet Count 177, Mean Platelet Volume 12.3H, Neutrophils (%) (Auto) 89H, Lymphocytes (%) (Auto) 9L, Monocytes (%) (Auto) 2, Eosinophils (%) (Auto) 0, Basophils (%) (Auto) 0, Neutrophils # (Auto) 11.1H, Lymphocytes # (Auto) 1.1, Monocytes # (Auto) 0.2, Eosinophils # (Auto) 0.0, Basophils # (Auto) 0.0, Sodium Level 141, Potassium Level 3.8, Chloride Level 111H, Carbon Dioxide Level 20L, Anion Gap 10, Blood Urea Nitrogen 22H, Creatinine 0.91, Estimat Glomerular Filtration Rate > 60, BUN /Creatinine Ratio 24, Glucose Level 165H, Calcium Level 9.0, Magnesium Level 1.8 , Total Bilirubin 0.5, Aspartate Amino Transf (AST/SGOT) 15, Alanine Aminotransferase (ALT/SGPT) 17, Alkaline Phosphatase 50, Total Protein 6.0L, Albumin 3.7, Thyroid Stimulating Hormone (TSH) 0.27L Microbiology 07/10/17 Blood Culture - Preliminary, Resulted No growth 07/10/17 Urine Culture - Final, Complete Procedures NAME: JAIDEN ZELAYA [facility] REC#: [id number] PT STATUS: ADM IN : 1955 PHYSICIAN: NAYE MCCABE APRN ADMIT DATE: 07/10/17 Signed Date of Exam: 07/10/17 CT ANGIO CHEST W PROCEDURE: CT angiography of the chest with contrast. TECHNIQUE: Multiple contiguous axial images were obtained through the chest after uneventful bolus administration of intravenous contrast. Reconstructed CTA MIP acquisitions were also performed. INDICATION: Shortness of breath. Wheezing. 125 ML of Omnipaque 350 was administered intravenously. FINDINGS: The thyroid gland is heterogenous and is enlarged, more on the right side with the right thyroid lobe measuring in axial dimensions 5.8 x 4.2 cm. Further evaluation with thyroid ultrasound is recommended. There are multiple moderately enlarged mediastinal lymph nodes such as a right paratracheal lymph node measuring 1.6 cm superiorly and 1.9 cm inferiorly, infracarinal lymph node measuring 1.7 cm and aortopulmonary window lymph node measuring 1.7 cm. There are also bilateral hilar lymph nodes up to 1.5 cm on the left and 1.2 cm on the right side. These are measured in short axis. There are no significantly enlarged axillary lymph nodes seen. There is cardiomegaly with a small to moderate pericardial effusion. The left atrium and to some extent, to the right atrium also, are particularly dilated. The pulmonary arteries are well opacified with no filling defects seen to suggest pulmonary embolism. Prominent coronary artery calcifications in the left carotid artery distribution are seen. The lungs demonstrate patchy areas of air-trapping without significant consolidation, mass, or suspicious nodule. There are no emphysema changes and no bronchiectasis seen. There is mild subsegmental atelectasis near the lower aspect of the left major fissure. The osseous structures demonstrate multilevel Schmorl's nodes. Sections of the upper abdomen appear grossly unremarkable. Cholecystectomy clips are seen. IMPRESSION: 1. There is prominent mediastinal and bilateral hilar lymphadenopathy. 2. Cardiomegaly with a small to moderate pericardial effusion seen. There is dilatation of the atria. Prominent coronary artery calcifications are seen. 3. Patchy areas of air-trapping are seen in the lungs. Dictated by: Dictated on workstation # [id number] Dict: 07/10/17 1443 Trans: 07/10/171728 Interpreted by: SOFIA BURGOS MD Electronically signed by: SOFIA BURGOS MD 07/10/171728 A/P: Assessment: Shortness of breath, multifactorial (as described below) Acute exac of COPD Obesity-hypoventilation and sleep apnea syndrome Acute diastolic CHF due to uncontrolled hypertension There is prominent mediastinal and bilateral hilar lymphadenopathy seen on CTA of the chest - management per Dr. Thomas (awaiting bronch) Echo of 07/11/17: LVEF 60-65%, small to mod pericard eff w/o evidence of hemodynamic significance (not significantly changed from an echo study of February 2017), mod concentric LVH, RVSP approx 60 mmHg Pulmonary hypertension of undetermined etiology. PASP estimated to be approx 80 mmHg on echo of February 2017. RVSP estimated to be approx 60 mmHg on echo of 07/11/17 CAD. Her primary wind technician is Dr Knapp at [facility] - Cardiac cath of at [facility] - CAD - 70% left main stenosis prox, 50% prox LAD occlusion. The prox/ostial left main was stented with a 4.0 x 12 mm Synergy stent Chronic a-fib (she reports recent diagnosis) Pradaxa for stroke prophylaxis (has not taken in 3 days d/t pending procedure, she thinks possibly a bronch) TSH 0.27 - hyperthyroidism Plan: * Augment antihypertensive regimen * Treat with diuretics for probable ac diastolic CHF * Repeat echo in 48 hours to make sure pericard eff is not worsening. It does seem relatively stable today compared to a study of February 2017. There is no clinical or echo evidence of tamponade * Monitor labs * She has chronic a-fib for which she previously was on Pradaxa for stroke prophylaxis, however, she has been off of it for the last 3 days in preparation for bronchoscopy by Dr. Thomas (however Pradaxa is not listed on her medication list) * She is on Lovenox (DVT prophylaxis dose) * Request recent office note from Dr. Knapp Physician Assessment Physician Assessment Continuing shortness of breath Lungs: good bilat air entry, but diminished at the bases Cor: irreg Ext: no c/c/e A&R * As documented in our note above that I updated (italics) and as noted below * I reviewed her records from [facility] * I discussed her case with Dr Thomas. * Dr Thomas is not planning bronch at this time. I have advised continuation of Plavix * Repeat echo in am. If pericard eff stable and if pericardiocentesis is not anticipated then replace aspirin with Pradaxa, given her a fib * Repeat ECG YANET WHITE Jul 12, 2017 10:15 ADALBERTO JUAN MD [facility] Jul 12, 2017 18:40
[2017-07-12] MEDS ORDERED: amLODIPine 5 MG (NORVASC) TAB PO NR (10:30)
--- NOTE | 2017-07-12 11:53 | Progress Note-Hospitalist ---
Progress Note HPI/CC on Admission CC: Shortness of breath HPI: This is a 61-year-old lifetime nonsmoker white female that presents to the hospital as a direct admission for Dr. Thomas's office for shortness of breath. Her primary care provider is Dr. Henriquez at [facility]. She reports a history of asthma minimal problems with it but had a change of her status 2 weeks ago and began having more shortness of breath. She obtain an appointment with Dr. Thomas who evaluated her to be wheezing placed on IV steroids and workup was completed that now shows a pericardial effusion echocardiogram was just completed and I did confer with cardiology who will see her in consultation. She denies any history of sleep apnea or sleeping with the machine at night for oxygen. She is anxious about shortness of breath. Progress Notes/Assess & Plan Date Seen 07/12/17 Time Seen by Provider: 10:30 Admission Dx/Process Assessment: Shortness of breath with wheezing in an asthmatic with worsened control over the past [address] scan showing pericardial effusion moderate amount an elevated BNP indicating volume overload with PVCs on telemetry Hypertension [id number] with systolic of 182 permissive hypertension per cardiology in management until patient is seen by cardiology HTN CAD Diagonsis/Assessment & Plan Patient Interview: Pt confirms seeing Dr. Thomas yesterday and he informed her that he will do scope, but she will need to be off Plavix for 5 days. Pt denies seeing Dr. Thomas today Pt confirms experiencing pain Physical exam stable. Pt is breathing better today Pt confirms home O2 at night Pt denies having BMs AFVSS, Pleasant, O x 3, family at bedside RRR, CTAB except upper airway wheezing noted No edema Assessment: Shortness of breath with wheezing in an asthmatic with worsened control over the past [address] scan showing pericardial effusion moderate amount an elevated BNP indicating volume overload with PVCs on telemetry but noted pericardial effusion in February 2017 ECHO non-critical status presently Primary Pulmonary HTN? 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 Thomas Poor prognosis long-term Will need home O2 24/7 at DC Scribed by Sherry Valdes under the direct supervision of Dr. Mcguire. MIGEL MCGUIRE DO Jul 12, 2017 11:53
[2017-07-12] MEDS: ENOXAPARIN 40 MG/0.4 ML (LOVENOX) SYR SC SCH (14:14)
[2017-07-12] MEDS: CYCLOBENZAPRINE 10 MG (FLEXERIL) TAB PO PRN (14:16)
[2017-07-12] MEDS: RT-ADVAIR HFA 115/21 MCG PER PUFF IH SCH ×2 (14:26→20:00)
[2017-07-12] MEDS: UMECLIDINIUM BROMIDE (INCRUSE ELLIPTA) 7'S IH SCH (14:27)
[2017-07-12 15:15] VITALS: BP 166/87
[2017-07-12] MEDS ORDERED: CLOPIDOGREL 75 MG (PLAVIX) TABLET PO NR (18:45)
[2017-07-12 19:55] VITALS: BP 173/98
[2017-07-13 00:08] VITALS: BP 171/81
[2017-07-13] MEDS: RT-ALBUTEROL SULF 2.5 MG/3 ML PRE-MIX VIAL IH SCH ×4 (02:44→20:41)
[2017-07-13 04:31] VITALS: BP 173/82
[2017-07-13] MEDS: KCL 20 MEQ TAB (K-DUR) PO SCH (05:22)
[2017-07-13] MEDS: methylPREDNISolone 40 MG/ML (Solu-MEDROL) VIAL IV SCH ×4 (05:22→22:50)
[2017-07-13] MEDS: RT-ADVAIR HFA 115/21 MCG PER PUFF IH SCH ×2 (07:43→20:41)
[2017-07-13] MEDS: UMECLIDINIUM BROMIDE (INCRUSE ELLIPTA) 7'S IH SCH (07:44)
[2017-07-13 08:50] VITALS: BP 165/60
[2017-07-13] MEDS: FAMOTIDINE 20 MG (PEPCID) TABLET PO SCH ×2 (08:52→21:28)
[2017-07-13] MEDS: LORATADINE (CLARITIN) 10 MG TAB PO SCH (08:53)
[2017-07-13] MEDS: CLOPIDOGREL 75 MG (PLAVIX) TABLET PO SCH (08:53)
[2017-07-13] MEDS: ASPIRIN 81 MG CHEW (CHILDREN'S ASA) PO SCH (08:53)
[2017-07-13] MEDS: amLODIPine 5 MG (NORVASC) TAB PO SCH (08:53)
[2017-07-13] MEDS: lisINopril 20 MG (ZESTRIL) TAB PO SCH (08:53)
[2017-07-13] MEDS: MONTELUKAST 10 MG (SINGULAIR) TAB PO SCH (08:53)
[2017-07-13] MEDS: meTOprolol SUCCINATE 100 MG (TOPROL XL) TAB PO SCH (08:53)
[2017-07-13] MEDS: FUROSEMIDE 40 MG/4 ML INJ (LASIX) IVP SCH (08:54)
[2017-07-13] MEDS: CYCLOBENZAPRINE 10 MG (FLEXERIL) TAB PO PRN ×2 (09:07→17:53)
[2017-07-13] MEDS ORDERED: LACTULOSE SYRUP 10GM/15ML (ENULOSE) 30ML UDC PO PRN (10:15)
--- NOTE | 2017-07-13 10:23 | Pulmonary Progress Note ---
Subjective Time Seen by Provider: 10:23 Subjective/Events-last exam Pt is still having SOB, BNP is elevated. Exam Exam Vital Signs Date Time Temp Pulse Resp B/P (MAP) Pulse Ox O2 Delivery O2 Flow Rate FiO2 07/13/17 08:50 96.5 77 32 165/60 99 Nasal Cannula 2.00 07/13/17 07:56 99 Nasal Cannula 2.00 07/13/17 07:55 99 Nasal Cannula 2.00 07/13/17 07:54 99 Nasal Cannula 2.00 07/13/17 04:31 97.7 66 16 173/82 99 Nasal Cannula 2.00 07/13/17 02:44 Nasal Cannula 2.00 07/13/17 01:00 61 07/13/17 00:08 97.5 68 20 171/81 99 Nasal Cannula 2.00 07/12/17 21:00 97 Nasal Cannula 3.00 07/12/17 20:23 99 Nasal Cannula 2.00 07/12/17 19:55 96.5 73 22 173/98 98 Nasal Cannula 2.00 07/12/17 19:00 81 07/12/17 17:05 97 Nasal Cannula 2.00 07/12/17 15:15 97.5 70 24 166/87 97 Nasal Cannula 2.00 07/12/17 14:28 Room Air 07/12/17 14:27 97 Nasal Cannula 2.00 07/12/17 13:00 77 07/12/17 12:00 96.4 78 26 98 Room Air 2.00 General Appearance: WD/WN, Chronically ill, Mild Distress (due to dyspnea), Obese HEENT: PERRL/EOMI, Normal ENT Inspection, Pharynx Normal Neck: Full Range of Motion, Normal Inspection, Non Tender, Supple, Carotid Bruit Respiratory: Chest Non Tender, No Accessory Muscle Use, No Respiratory Distress , Decreased Breath Sounds, Wheezing Cardiovascular: Regular Rate, Rhythm, No Edema, No Gallop, No JVD, No Murmur, Normal Peripheral Pulses, Other (extra systoles) Gastrointestinal: normal bowel sounds, non tender, soft, no organomegaly Extremity: Normal Capillary Refill, Normal Inspection, Normal Range of Motion, Non Tender, No Calf Tenderness, No Pedal Edema Neurologic/Psychiatric: Alert, Oriented x3, No Motor/Sensory Deficits, Normal Mood/Affect Skin: Normal Color, Warm/Dry Lymphatic: No Adenopathy Results Lab Laboratory Tests 07/12/17 05:27 Assessment/Plan Assessment/Plan COPDAE/Acute bronchitis -SVNs, advair -Solumedrol Acute Diastolic CHFAE EF 60-65 % -Continue Lasix Mediastinal lymphadenopathy -Will repeat CT scan as out patient -Pt may need EBUS small to moderate Pericardial effusion -Cardiology is following PUlmonary HTN probably group III Allergic rhinitis -Singulair, Claritin 232 Clinical Quality Measures DVT/VTE Risk/Contraindication: Risk Factor Score Per Nursin RFS Level Per Nursing on Admit: 4+=Very High DRISS FUNES DO Jul 13, 2017 10:23
[2017-07-13] MEDS: FLEET ENEMA ADULT 1 EA BTL PR SCH ×2 (11:09→21:28)
--- NOTE | 2017-07-13 11:11 | Progress Note-Hospitalist ---
Progress Note HPI/CC on Admission CC: Shortness of breath HPI: This is a 61-year-old lifetime nonsmoker white female that presents to the hospital as a direct admission for Dr. Thomas's office for shortness of breath. Her primary care provider is Dr. Henriquez at [facility]. She reports a history of asthma minimal problems with it but had a change of her status 2 weeks ago and began having more shortness of breath. She obtain an appointment with Dr. Thomas who evaluated her to be wheezing placed on IV steroids and workup was completed that now shows a pericardial effusion echocardiogram was just completed and I did confer with cardiology who will see her in consultation. She denies any history of sleep apnea or sleeping with the machine at night for oxygen. She is anxious about shortness of breath. Progress Notes/Assess & Plan Date Seen 07/13/17 Time Seen by Provider: 10:30 Admission Dx/Process Assessment: Shortness of breath with wheezing in an asthmatic with worsened control over the past [address] scan showing pericardial effusion moderate amount an elevated BNP indicating volume overload with PVCs on telemetry Hypertension [id number] with systolic of 182 permissive hypertension per cardiology in management until patient is seen by cardiology HTN CAD Diagonsis/Assessment & Plan Patient Interview: Pt confirms having recently had a breathing treatment and looks to be breathing much better. Pt states she has breathing treatment supply at home Pt denies having BMs. I informed the pt that we will work on this today and she will need to ambulate. This will help improve her strength as well. Physical exam stable. Lungs sound much better today, but not good enough to DC. Pt will need home O2 and this was discussed AFVSS, Pleasant, O x 3, family at bedside RRR, much improved air expansion but still wheezy No edema Assessment: Shortness of breath with wheezing in an asthmatic with worsened control over the past [address] scan showing pericardial effusion moderate amount an elevated BNP indicating volume overload with PVCs on telemetry but noted pericardial effusion in February 2017 ECHO non-critical status presently Primary Pulmonary HTN? 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 Thomas Poor prognosis long-term Will need home O2 / at DC BM meds Ambulate Possible DC Sunday? Scribed by Sherry Valdes under the direct supervision of Dr. Mcguire. MIGEL MCGUIRE DO Jul 13, 2017 11:11
[2017-07-13] MEDS: SENNA W/DOCUSATE (SENOKOT S) TABLET PO SCH ×2 (11:14→21:28)
[2017-07-13 12:00] VITALS: BP 147/79
--- NOTE | 2017-07-13 12:13 | Diagnostic Imaging Report ---
PA and lateral views of the chest. INDICATION: Shortness of breath. COMPARISON: 03/14/2017. FINDINGS: The heart is markedly enlarged. There is mild pulmonary vascular congestion. There is patchy infiltrate or atelectasis in the right infrahilar region. No effusion or pneumothorax. The mediastinum and brittney appear unremarkable. IMPRESSION: Cardiomegaly with mild vascular congestion. Patchy infiltrate or atelectasis in the right infrahilar region. Dictated by: Dictated on workstation # [id number]
--- NOTE | 2017-07-13 15:35 | Progress Note-Cardiology ---
Cardiology SOAP Progress Note Subjective: She feels her SOB is unchanged from yesterday. No c/o CP, palpitations, syncope or near syncope. Objective: I&O/Vital Signs Vital Sign - Last 12Hours 07/13/17 07/13/17 07/13/17 07/13/17 07:00 07:54 07:55 07:56 Pulse 57 Pulse Ox 99 99 99 O2 Delivery Nasal Cannula Nasal Cannula Nasal Cannula O2 Flow Rate 2.00 2.00 2.00 07/13/17 07/13/17 07/13/17 07/13/17 08:50 09:00 12:00 16:09 Temp 96.5 98.6 Pulse 77 72 Resp 32 16 B/P (MAP) 165/60 147/79 Pulse Ox 99 96 98 98 O2 Delivery Nasal Cannula Nasal Cannula Nasal Cannula Nasal Cannula O2 Flow Rate 2.00 2.00 2.00 2.00 07/13/17 16:29 Temp 96.7 Pulse 67 Resp 16 B/P (MAP) 168/88 Pulse Ox 97 O2 Delivery Nasal Cannula O2 Flow Rate 2.00 Intake and Output 07/14/17 00:00 Intake Total 680 ml Output Total 1700 ml Balance -1020 ml Weight (Pounds): 210 Weight (Ounces): 0.0 Weight (Calculated Kilograms): 95.448258 Constitutional: AAO x 3, well-developed, well-nourished Respiratory: No accessory muscle use, lungs clear to percussion, other (Fair to good air entry; exp wheezes) Cardiovascular: irregularly irregular, S1 and S2, systolic murmur (faint LAVON at cardiac base) Gastrointestional: No tender, soft, No guarding, No rebound, audible bowel sounds Extremities: No cyanosis, No significant edema Neurologic/Psychiatric: oriented x 3, grossly intact, power is 5/5 both on sides Skin: No rash on exposed areas, No ulcerations on exposed areas Results/Procedures: Labs Microbiology 07/10/17 Blood Culture - Preliminary, Resulted No growth 07/10/17 Urine Culture - Final, Complete Laboratory Tests 07/12/17 05:27 A/P: Assessment: Shortness of breath, multifactorial (as described below) Acute exac of COPD Obesity-hypoventilation and sleep apnea syndrome Acute diastolic CHF due to uncontrolled hypertension There is prominent mediastinal and bilateral hilar lymphadenopathy seen on CTA of the chest - management per Dr. Thomas (awaiting bronch) Small to mod pericardial effusion, chronic. Echo of 07/10/17: LVEF 60-65%, small to mod pericard eff w/o evidence of hemodynamic significance (not significantly changed from an echo study of February 2017), mod concentric LVH, RVSP approx 60 mmHg. Repeat echo of 07/12/17 is essentially unchanged Pulmonary hypertension of undetermined etiology. PASP estimated to be approx 80 mmHg on echo of February 2017. RVSP estimated to be approx 60 mmHg on echo of 07/11/17 CAD. Her primary steel placer is Dr Knapp at [facility] - Cardiac cath of at [facility] - CAD - 70% left main stenosis prox, 50% prox LAD occlusion. The prox/ostial left main was stented with a 4.0 x 12 mm Synergy stent Chronic a-fib (she reports recent diagnosis) Pradaxa for stroke prophylaxis (has not taken in 3 days) TSH 0.27 - hyperthyroidism Plan: * Acute diastolic CHF * Repeat echo in 48 hours to make sure pericard eff is not worsening. It does seem relatively stable today compared to a study of February 2017. There is no clinical or echo evidence of tamponade * Monitor labs * She has chronic a-fib for which she previously was on Pradaxa for stroke prophylaxis, however, she has been off of it for the last 3 days in preparation for bronchoscopy by Dr. Thomas (however Pradaxa is not listed on her medication list) * She is taking ASA and Plavix. Plavix needs to be continued d/t recent coronary stent placement. She has chronic a-fib and needs to be on OAC for stroke prophylaxis. We will stop ASA because having her on ASA, Plavix and OAC increases her risk of bleeding. She wishes to discuss this with Dr. Aguirre. Physician Assessment Physician Assessment Continuing shortness of breath Lungs: good bilat air entry, but diminished at the bases Cor: irreg Ext: no c/c/e A&R * As documented in our note above that I updated (italics) and as noted below * This is a complex and puzzling diagnostic and management problem * She looks improved but still reports shortness of breath and thinks some features are similar to the ones she had prior to her cor stenting * I have reviewed her records from [facility]. Will consider another heart cath if need * We have resumed her aspirin and Plavix after discussing her case with Dr Thomas * She is still off Pradaxa, in case she needs bronch * She in on DVT prophylaxis with enoxaparin * Echo was repeated today and is not significantly changed compared the study of 07/10/17 YANET WHITE CAR SUPPLIER Jul 13, 2017 15:35 ADALBERTO AGUIRRE MD FACP FAC CCDS Jul 13, 2017 18:15
[2017-07-13 16:29] VITALS: BP 168/88
[2017-07-13] MEDS: ENOXAPARIN 40 MG/0.4 ML (LOVENOX) SYR SC SCH (17:50)
[2017-07-13 20:13] VITALS: BP 163/89
[2017-07-13] MEDS: BISACODYL 10 MG SUPP (DULCOLAX) PR SCH (21:28)
[2017-07-14] VITALS (7 sets, daily range): BP systolic 153–190; BP diastolic 70–94
[2017-07-14] MEDS: RT-ALBUTEROL SULF 2.5 MG/3 ML PRE-MIX VIAL IH SCH ×4 (03:04→23:13)
[2017-07-14] MEDS: KCL 20 MEQ TAB (K-DUR) PO SCH (05:39)
[2017-07-14] MEDS: methylPREDNISolone 40 MG/ML (Solu-MEDROL) VIAL IV SCH ×4 (05:39→21:45)
[2017-07-14] MEDS: UMECLIDINIUM BROMIDE (INCRUSE ELLIPTA) 7'S IH SCH (08:36)
[2017-07-14] MEDS: RT-ADVAIR HFA 115/21 MCG PER PUFF IH SCH ×2 (08:36→23:13)
[2017-07-14] MEDS: ASPIRIN 81 MG CHEW (CHILDREN'S ASA) PO SCH (09:13)
[2017-07-14] MEDS: CYCLOBENZAPRINE 10 MG (FLEXERIL) TAB PO PRN (09:13)
[2017-07-14] MEDS: meTOprolol SUCCINATE 100 MG (TOPROL XL) TAB PO SCH ×2 (09:13→21:45)
[2017-07-14] MEDS: CLOPIDOGREL 75 MG (PLAVIX) TABLET PO SCH (09:13)
[2017-07-14] MEDS: LORATADINE (CLARITIN) 10 MG TAB PO SCH (09:13)
[2017-07-14] MEDS: SENNA W/DOCUSATE (SENOKOT S) TABLET PO SCH ×2 (09:13→21:45)
[2017-07-14] MEDS: FAMOTIDINE 20 MG (PEPCID) TABLET PO SCH ×2 (09:13→21:45)
[2017-07-14] MEDS: amLODIPine 5 MG (NORVASC) TAB PO SCH (09:13)
[2017-07-14] MEDS: FLEET ENEMA ADULT 1 EA BTL PR SCH ×2 (09:14→21:45)
[2017-07-14] MEDS: MONTELUKAST 10 MG (SINGULAIR) TAB PO SCH (09:14)
[2017-07-14] MEDS: FUROSEMIDE 40 MG/4 ML INJ (LASIX) IVP SCH (09:14)
[2017-07-14] MEDS: BISACODYL 10 MG SUPP (DULCOLAX) PR SCH ×2 (09:14→21:45)
[2017-07-14] MEDS: lisINopril 20 MG (ZESTRIL) TAB PO SCH (09:14)
--- NOTE | 2017-07-14 14:43 | Progress Note-Hospitalist ---
Subjective HPI/CC On Admission Date Seen by Provider: Jul 14, 2017 Time Seen by Provider: 10:00 CC: Shortness of breath HPI: This is a 61-year-old lifetime nonsmoker white female that presents to the hospital as a direct admission for Dr. Thomas's office for shortness of breath. Her primary care provider is Dr. Henriquez at [facility]. She reports a history of asthma minimal problems with it but had a change of her status 2 weeks ago and began having more shortness of breath. She obtain an appointment with Dr. Thomas who evaluated her to be wheezing placed on IV steroids and workup was completed that now shows a pericardial effusion echocardiogram was just completed and I did confer with cardiology who will see her in consultation. She denies any history of sleep apnea or sleeping with the machine at night for oxygen. She is anxious about shortness of breath. Subjective/Events-last exam Patient reports feeling less short of breath at rest but still has significant dyspnea with any exertion. She has a mild nonproductive cough with no hemoptysis yesterday or today. Objective Exam Vital Signs Vital Sign - Last 12Hours 07/10/17 07/10/17 10:05 19:25 Temp 97.7 Pulse 83 Resp 36 B/P (MAP) 142/89 Pulse Ox 98 O2 Delivery Room Air O2 Flow Rate 2.00 Capillary Refill : General Appearance: Anxious, Chronically ill Respiratory: Other (Diminished breath sounds without wheezing throughout. Few fine rales in both bases are noted. No rhonchi appreciated.) Cardiovascular: Regular Rate, Rhythm, No Edema, No Gallop, No JVD, No Murmur, Normal Peripheral Pulses, Other (Increased P2 is noted at the second left intercostal space.) Extremity: Normal Inspection, Normal Range of Motion, Non Tender, No Calf Tenderness, Other (His bilateral pedal edema.) Assessment/Plan Assessment and Plan Assess & Plan/Chief Complaint 1. Reported severe COPD with pulmonary hypertension etiology at this point appears to be unclear. The patient reports she is a lifelong nonsmoker. CT chest is abnormal she reports bronchoscopy was unremarkable earlier this year. Since that time she has lost at least 40 pounds for her report without night sweats chills fever or purulent sputum production. Underlying malignancy or autoimmune disease is in the differential defer to Dr. Thomas continue current supportive care. MO QUACH MD Jul 14, 2017 14:43
[2017-07-14] MEDS: ENOXAPARIN 40 MG/0.4 ML (LOVENOX) SYR SC SCH (14:58)
--- NOTE | 2017-07-14 16:43 | Progress Note-Cardiology ---
Cardiology SOAP Progress Note Subjective: Sitting up in bed and talking to family. Still notes considerable shortness of breath. No cp or palp or syncope Objective: I&O/Vital Signs Vital Sign - Last 12Hours 07/14/17 07/14/17 07/14/17 07/14/17 07:00 08:00 08:37 08:38 Temp 96.6 Pulse 54 78 Resp 24 B/P (MAP) 177/84 Pulse Ox 99 98 98 O2 Delivery Nasal Cannula Nasal Cannula Nasal Cannula O2 Flow Rate 2.00 3.00 3.00 07/14/17 07/14/17 07/14/17 07/14/17 08:39 09:00 12:00 13:23 Temp 96.9 Pulse 79 76 Resp 20 B/P (MAP) 176/87 Pulse Ox 98 96 98 O2 Delivery Nasal Cannula Nasal Cannula Nasal Cannula O2 Flow Rate 3.00 2.00 2.00 07/14/17 15:21 Pulse Ox 98 O2 Delivery Nasal Cannula O2 Flow Rate 3.00 Intake and Output 07/15/17 00:00 Intake Total 750 ml Output Total 1600 ml Balance -850 ml Weight (Pounds): 210 Weight (Ounces): 0.0 Weight (Calculated Kilograms): 95.192072 Constitutional: AAO x 3, well-developed, well-nourished Respiratory: No accessory muscle use, lungs clear to percussion, other (Fair to good air entry; exp wheezes) Cardiovascular: irregularly irregular, S1 and S2, systolic murmur (faint LAVON at cardiac base) Gastrointestional: No tender, soft, No guarding, No rebound, audible bowel sounds Extremities: No cyanosis, No significant edema Neurologic/Psychiatric: oriented x 3, grossly intact, power is 5/5 both on sides Skin: No rash on exposed areas, No ulcerations on exposed areas Results/Procedures: Labs Microbiology 07/10/17 Blood Culture - Preliminary, Resulted No growth 07/10/17 Urine Culture - Final, Complete A/P: Assessment: Shortness of breath, multifactorial (as described below) Acute exac of COPD Obesity-hypoventilation and sleep apnea syndrome Acute diastolic CHF due to uncontrolled hypertension Uncontrolled hypertension There is prominent mediastinal and bilateral hilar lymphadenopathy seen on CTA of the chest - management per Dr. Thomas (awaiting bronch) Small to mod pericardial effusion, chronic. Echo of 07/10/17: LVEF 60-65%, small to mod pericard eff w/o evidence of hemodynamic significance (not significantly changed from an echo study of February 2017), mod concentric LVH, RVSP approx 60 mmHg. Repeat echo of 07/12/17 is essentially unchanged Pulmonary hypertension of undetermined etiology. PASP estimated to be approx 80 mmHg on echo of February 2017. RVSP estimated to be approx 60 mmHg on echo of 07/11/17 CAD. Her primary rough patcher is Dr Knapp at [facility] - Cardiac cath of at [facility] - CAD - 70% left main stenosis prox, 50% prox LAD occlusion. The prox/ostial left main was stented with a 4.0 x 12 mm Synergy stent Chronic a-fib (she reports recent diagnosis) Pradaxa for stroke prophylaxis (has not taken in 3 days) TSH 0.27 - hyperthyroidism Plan: * Increase bb in effort to better control bp * Monitor labs * She looks improved but still reports shortness of breath and thinks some features are similar to the ones she had prior to her cor stenting * I have reviewed her records from [facility]. Will consider another heart cath if need * We have resumed her aspirin and Plavix after discussing her case with Dr Thomas * She is still off Pradaxa, in case she needs bronch * She in on DVT prophylaxis with enoxaparin ADALBERTO JUAN MD FACP [facility] Jul 14, 2017 16:43
[2017-07-14] MEDS: CATHETER FLUSH 10 ML SYR IV PRN (17:12)
[2017-07-15] VITALS (7 sets, daily range): BP systolic 160–188; BP diastolic 77–100
[2017-07-15] MEDS: RT-ALBUTEROL SULF 2.5 MG/3 ML PRE-MIX VIAL IH SCH ×4 (03:00→22:22)
[2017-07-15] MEDS: methylPREDNISolone 40 MG/ML (Solu-MEDROL) VIAL IV SCH ×4 (05:55→21:33)
[2017-07-15] MEDS: KCL 20 MEQ TAB (K-DUR) PO SCH (05:55)
[2017-07-15 06:03] LABS: BASOPHILS % (AUTO) 0 % (0-10); EOSINOPHILS % (AUTO) 0 % (0-10); LYMPHOCYTES # (AUTO) 1.1 X 10^3 (1.0-4.0); LYMPHOCYTES % (AUTO) 11 % (12-44); MEAN CORPUSCULAR HEMOGLOBIN 28 PG (25-34); MEAN CORPUSCULAR HGB CONC 33 G/DL (32-36); MEAN CORPUSCULAR VOLUME 86 FL (80-99); MEAN PLATELET VOLUME 11.4 FL (7.4-10.4); MONOCYTES # (AUTO) 0.3 X 10^3 (0.0-1.0); MONOCYTES % (AUTO) 4 % (0-12); NEUTROPHILS # (AUTO) 8.1 X 10^3 (1.8-7.8); NEUTROPHILS % (AUTO) 85 % (42-75); PLATELET COUNT 197 10^3/uL (130-400); RED BLOOD COUNT 5.08 10^6/uL (4.35-5.85); RED CELL DISTRIBUTION WIDTH 14.8 % (10.0-14.5); WHITE BLOOD COUNT 9.5 10^3/uL (4.3-11.0)
[2017-07-15 06:23] LABS: ANION GAP 10 MMOL/L (5-14); BLOOD UREA NITROGEN 23 MG/DL (7-18); BUN/CREATININE RATIO 29; CALCIUM 9.4 MG/DL (8.5-10.1); CARBON DIOXIDE 29 MMOL/L (21-32); CHLORIDE 102 MMOL/L (98-107); CREATININE SERUM 0.78 MG/DL (0.60-1.30); GFR ESTIMATED > 60; GLUCOSE 166 MG/DL (70-105); MAGNESIUM 2.2 MG/DL (1.8-2.4); POTASSIUM 3.7 MMOL/L (3.6-5.0); SODIUM 141 MMOL/L (135-145)
[2017-07-15] MEDS: meTOprolol SUCCINATE 100 MG (TOPROL XL) TAB PO SCH ×2 (08:47→20:36)
[2017-07-15] MEDS: LORATADINE (CLARITIN) 10 MG TAB PO SCH (08:47)
[2017-07-15] MEDS: amLODIPine 5 MG (NORVASC) TAB PO SCH (08:47)
[2017-07-15] MEDS: CLOPIDOGREL 75 MG (PLAVIX) TABLET PO SCH (08:47)
[2017-07-15] MEDS: MONTELUKAST 10 MG (SINGULAIR) TAB PO SCH (08:48)
[2017-07-15] MEDS: FUROSEMIDE 40 MG/4 ML INJ (LASIX) IVP SCH (08:48)
[2017-07-15] MEDS: lisINopril 20 MG (ZESTRIL) TAB PO SCH (08:48)
[2017-07-15] MEDS: ASPIRIN 81 MG CHEW (CHILDREN'S ASA) PO SCH (08:48)
[2017-07-15] MEDS: FAMOTIDINE 20 MG (PEPCID) TABLET PO SCH ×2 (08:48→20:36)
[2017-07-15] MEDS: SENNA W/DOCUSATE (SENOKOT S) TABLET PO SCH ×2 (08:48→20:36)
[2017-07-15] MEDS: CYCLOBENZAPRINE 10 MG (FLEXERIL) TAB PO PRN (08:48)
[2017-07-15] MEDS: FLEET ENEMA ADULT 1 EA BTL PR SCH ×2 (09:00→20:36)
[2017-07-15] MEDS: BISACODYL 10 MG SUPP (DULCOLAX) PR SCH ×2 (09:00→20:36)
[2017-07-15] MEDS: RT-ADVAIR HFA 115/21 MCG PER PUFF IH SCH ×2 (09:03→22:22)
[2017-07-15] MEDS: UMECLIDINIUM BROMIDE (INCRUSE ELLIPTA) 7'S IH SCH (09:03)
[2017-07-15] MEDS ORDERED: amLODIPine 5 MG (NORVASC) TAB PO NR (12:41)
[2017-07-15] MEDS: ALPRAZolam 0.25 MG (XANAX) TAB PO PRN ×2 (13:16→21:33)
--- NOTE | 2017-07-15 14:15 | Progress Note-Hospitalist ---
Subjective HPI/CC On Admission Date Seen by Provider: Jul 15, 2017 Time Seen by Provider: 10:30 CC: Shortness of breath HPI: This is a 61-year-old lifetime nonsmoker white female that presents to the hospital as a direct admission for Dr. Thomas's office for shortness of breath. Her primary care provider is Dr. Henriquez at [facility]. She reports a history of asthma minimal problems with it but had a change of her status 2 weeks ago and began having more shortness of breath. She obtain an appointment with Dr. Thomas who evaluated her to be wheezing placed on IV steroids and workup was completed that now shows a pericardial effusion echocardiogram was just completed and I did confer with cardiology who will see her in consultation. She denies any history of sleep apnea or sleeping with the machine at night for oxygen. She is anxious about shortness of breath. Subjective/Events-last exam reports not sleeping well anxious about the cause of her underlying shortness of breath. She has taken alprazolam in the past which has helped. She reports no sputum production. She is having some intermittent chest wall pain reportedly mild on the left. This is not associated with increased shortness of breath. She denies dyspnea at rest but does have dyspnea with minimal exertion. she reports no chills or fever. Objective Exam Vital Signs Vital Sign - Last 12Hours 07/10/17 07/10/17 10:05 19:25 Temp 97.7 Pulse 83 Resp 36 B/P (MAP) 142/89 Pulse Ox 98 O2 Delivery Room Air O2 Flow Rate 2.00 Capillary Refill : General Appearance: Anxious, Chronically ill Respiratory: No Accessory Muscle Use, Respiratory Distress (mild), Other (his breath sounds throughout without wheezing. Few scattered rales noted posteriorly.) Cardiovascular: No Edema, No Gallop, No Murmur, Irregularly Irregular Results/Procedures Lab Laboratory Tests 07/15/17 05:45 Assessment/Plan Assessment and Plan Assess & Plan/Chief Complaint 1. Reported severe COPD with pulmonary hypertension etiology at this point appears to be unclear. The patient reports she is a lifelong nonsmoker. CT chest is abnormal significant mediastinal adenopathy. Bronchoscopy was unremarkable earlier this year. Since that time she has lost at least 40 pounds for her report without night sweats chills fever or purulent sputum production. Underlying malignancy most likely with autoimmune disease atypical infection being is in the differential less likely. Defer to Dr. Thomas continue current supportive care. 2. Situational anxiety will initiate low-dose alprazolam. 3. As the patient is likely to require repeat bronchoscopy with biopsy will hold aspirin and Plavix resumption per Dr. Thomas's recommendation. MO QUACH MD Jul 15, 2017 14:15
[2017-07-15] MEDS: ENOXAPARIN 40 MG/0.4 ML (LOVENOX) SYR SC SCH (15:35)
--- NOTE | 2017-07-15 16:03 | Progress Note-Cardiology ---
Cardiology SOAP Progress Note Subjective: Shortness of breath essentially unchanged. Some chest discomfort when more short of breath. Shortness of breath is continuously present. Denies syncope or palp Objective: I&O/Vital Signs Vital Sign - Last 12Hours 07/15/17 07/15/17 07/15/17 07/15/17 04:00 07:00 08:00 09:00 Temp 97.2 98.5 Pulse 68 91 77 Resp 22 20 B/P (MAP) 188/94 169/100 Pulse Ox 100 99 96 O2 Delivery Nasal Cannula Nasal Cannula Nasal Cannula O2 Flow Rate 2.00 2.00 2.00 07/15/17 07/15/17 07/15/17 12:00 14:34 14:38 Temp 98.6 Pulse 71 64 Resp 24 B/P (MAP) 167/92 Pulse Ox 97 96 O2 Delivery Nasal Cannula Nasal Cannula O2 Flow Rate 2.00 3.00 Intake and Output 07/16/17 00:00 Intake Total 720 ml Output Total 1800 ml Balance -1080 ml Weight (Pounds): 206 Weight (Ounces): 4.0 Weight (Calculated Kilograms): 93.275737 Constitutional: AAO x 3, well-developed, well-nourished Respiratory: No accessory muscle use, lungs clear to percussion, other (Fair to good air entry; exp wheezes) Cardiovascular: irregularly irregular, S1 and S2, systolic murmur (faint LAVON at cardiac base) Gastrointestional: No tender, soft, No guarding, No rebound, audible bowel sounds Extremities: No cyanosis, No significant edema Neurologic/Psychiatric: oriented x 3, grossly intact, power is 5/5 both on sides Skin: No rash on exposed areas, No ulcerations on exposed areas Results/Procedures: Labs Laboratory Tests 07/15/17 05:45: White Blood Count 9.5, Red Blood Count 5.08, Hemoglobin 14.2, Hematocrit 44, Mean Corpuscular Volume 86, Mean Corpuscular Hemoglobin 28, Mean Corpuscular Hemoglobin Concent 33, Red Cell Distribution Width 14.8H, Platelet Count 197, Mean Platelet Volume 11.4H, Neutrophils (%) (Auto) 85H, Lymphocytes (%) (Auto) 11L, Monocytes (%) (Auto) 4, Eosinophils (%) (Auto) 0, Basophils (%) (Auto) 0, Neutrophils # (Auto) 8.1H, Lymphocytes # (Auto) 1.1, Monocytes # (Auto) 0.3, Eosinophils # (Auto) 0.0, Basophils # (Auto) 0.0, Sodium Level 141, Potassium Level 3.7, Chloride Level 102, Carbon Dioxide Level 29, Anion Gap 10, Blood Urea Nitrogen 23H, Creatinine 0.78, Estimat Glomerular Filtration Rate > 60, BUN /Creatinine Ratio 29, Glucose Level 166H, Calcium Level 9.4, Magnesium Level 2.2 , B-Type Natriuretic Peptide 508.9H Microbiology 07/10/17 Blood Culture - Preliminary, Resulted No growth 07/10/17 Urine Culture - Final, Complete A/P: Assessment: Shortness of breath, multifactorial (as described below) Acute exac of COPD Obesity-hypoventilation and sleep apnea syndrome Acute diastolic CHF due to uncontrolled hypertension Uncontrolled hypertension There is prominent mediastinal and bilateral hilar lymphadenopathy seen on CTA of the chest - management per Dr. Thomas (awaiting bronch) Small to mod pericardial effusion, chronic. Echo of 07/10/17: LVEF 60-65%, small to mod pericard eff w/o evidence of hemodynamic significance (not significantly changed from an echo study of February 2017), mod concentric LVH, RVSP approx 60 mmHg. Repeat echo of 07/12/17 is essentially unchanged Pulmonary hypertension of undetermined etiology. PASP estimated to be approx 80 mmHg on echo of February 2017. RVSP estimated to be approx 60 mmHg on echo of 07/10/17 CAD. Her primary plant biology professor is Dr Knapp at [facility] - Cardiac cath of at [facility] - CAD - 70% left main stenosis prox, 50% prox LAD occlusion. The prox/ostial left main was stented with a 4.0 x 12 mm Synergy stent Chronic a-fib (she reports recent diagnosis) Pradaxa for stroke prophylaxis (has not taken in 3 days) TSH 0.27 - hyperthyroidism Plan: * Complex diagnostic and management issue * Amlodipine increased for better bp control * I reviewed Dr Lin's note. ASA and Plavix are being held in anticipation of bronch. I will discuss the issue with Dr Thomas, as well * She in on DVT prophylaxis with enoxaparin ADALBERTO JUAN MD FACP [facility] Jul 15, 2017 16:03
[2017-07-16] VITALS (7 sets, daily range): BP systolic 153–182; BP diastolic 85–95
[2017-07-16] MEDS: RT-ALBUTEROL SULF 2.5 MG/3 ML PRE-MIX VIAL IH SCH ×4 (02:55→19:06)
[2017-07-16] MEDS: methylPREDNISolone 40 MG/ML (Solu-MEDROL) VIAL IV SCH ×4 (04:10→22:49)
[2017-07-16] MEDS: KCL 20 MEQ TAB (K-DUR) PO SCH (05:41)
--- NOTE | 2017-07-16 06:40 | Pulmonary Progress Note ---
Subjective Time Seen by Provider: 07:22 Subjective/Events-last exam still c/o SOB Exam Exam Vital Signs Date Time Temp Pulse Resp B/P (MAP) Pulse Ox O2 Delivery O2 Flow Rate FiO2 07/16/17 01:00 61 07/16/17 00:43 98.0 75 18 153/86 99 Nasal Cannula 2.00 07/15/17 20:30 96 Nasal Cannula 2.00 07/15/17 20:26 164/85 07/15/17 20:00 97.2 75 22 166/100 98 Nasal Cannula 2.00 07/15/17 19:00 67 07/15/17 16:15 96.1 71 21 160/77 96 Nasal Cannula 2.00 07/15/17 14:38 64 07/15/17 14:34 96 Nasal Cannula 3.00 07/15/17 12:00 98.6 71 24 167/92 97 Nasal Cannula 2.00 07/15/17 09:00 96 Nasal Cannula 2.00 07/15/17 08:00 98.5 77 20 169/100 99 Nasal Cannula 2.00 07/15/17 07:00 91 General Appearance: Anxious, Chronically ill, Mild Distress HEENT: PERRL/EOMI, Normal ENT Inspection, Pharynx Normal Neck: Full Range of Motion, Normal Inspection, Non Tender, Supple, Carotid Bruit Respiratory: No Accessory Muscle Use, Respiratory Distress (mild), Other (his breath sounds throughout without wheezing. Few scattered rales noted posteriorly.) Cardiovascular: No Edema, No Gallop, No Murmur, Irregularly Irregular Gastrointestinal: normal bowel sounds, non tender, soft, no organomegaly Extremity: Normal Inspection, Normal Range of Motion, Non Tender, No Calf Tenderness, Other (His bilateral pedal edema.) Neurologic/Psychiatric: Alert, Oriented x3, No Motor/Sensory Deficits, Normal Mood/Affect Skin: Normal Color, Warm/Dry Lymphatic: No Adenopathy Results Lab Laboratory Tests 07/15/17 05:45 Assessment/Plan Assessment/Plan COPDAE/Acute bronchitis -SVNs, advair -Solumedrol Repeat CXR Acute Diastolic CHFAE EF 60-65 % -Continue Lasix Mediastinal lymphadenopathy -Will repeat CT scan as out patient -Pt may need EBUS small to moderate Pericardial effusion -Cardiology is following PUlmonary HTN probably group III Allergic rhinitis -Singulair, Claritin 232 Clinical Quality Measures DVT/VTE Risk/Contraindication: Risk Factor Score Per Nursin RFS Level Per Nursing on Admit: 4+=Very High DRISS FUNES DO Jul 16, 2017 06:40
[2017-07-16] MEDS: ALPRAZolam 0.25 MG (XANAX) TAB PO PRN ×2 (08:10→20:54)
[2017-07-16] MEDS: meTOprolol SUCCINATE 100 MG (TOPROL XL) TAB PO SCH ×2 (08:10→20:49)
[2017-07-16] MEDS: amLODIPine 10 MG (NORVASC) TAB PO SCH (08:10)
[2017-07-16] MEDS: LORATADINE (CLARITIN) 10 MG TAB PO SCH (08:10)
[2017-07-16] MEDS: FUROSEMIDE 40 MG/4 ML INJ (LASIX) IVP SCH (08:10)
[2017-07-16] MEDS: BISACODYL 10 MG SUPP (DULCOLAX) PR SCH ×2 (08:11→20:50)
[2017-07-16] MEDS: MONTELUKAST 10 MG (SINGULAIR) TAB PO SCH (08:11)
[2017-07-16] MEDS: lisINopril 20 MG (ZESTRIL) TAB PO SCH (08:11)
[2017-07-16] MEDS: FAMOTIDINE 20 MG (PEPCID) TABLET PO SCH ×2 (08:11→20:49)
[2017-07-16] MEDS: SENNA W/DOCUSATE (SENOKOT S) TABLET PO SCH ×2 (08:11→20:49)
[2017-07-16] MEDS: FLEET ENEMA ADULT 1 EA BTL PR SCH ×2 (08:11→20:50)
--- NOTE | 2017-07-16 09:17 | Diagnostic Imaging Report ---
INDICATION: Shortness of breath. TECHNIQUE: 2-view chest 8:50 AM. CORRELATION STUDY: 07/13/2017. FINDINGS: Heart size is enlarged. Mediastinum and hilar structures are slightly prominent. Vasculature also slightly prominent but less severe from prior study. No significant consolidating infiltrate. No pleural effusion. Mild degenerative changes of the thoracic spine. IMPRESSION: 1. Stable severity cardiac enlargement with vasculature slightly less prominent when compared to prior study. 2. Prominent appearance about the mediastinum and hilar structures. Dictated by: Dictated on workstation # [id number]
[2017-07-16] MEDS: UMECLIDINIUM BROMIDE (INCRUSE ELLIPTA) 7'S IH SCH (09:49)
[2017-07-16] MEDS: RT-ADVAIR HFA 115/21 MCG PER PUFF IH SCH ×2 (09:50→19:07)
--- NOTE | 2017-07-16 10:13 | Physical Therapy Evaluation ---
PT Evaluation-General Medical Diagnosis Admission Date Jul 10, 2017 at 10:05 Medical Diagnosis: pneumonia Onset Date: Jul 10, 2017 Therapy Diagnosis Therapy Diagnosis: generalized weakness/debility Height/Weight Height (Feet): 5 Height (Inches): 5.00 Weight (Pounds): 206 Weight (Ounces): 4.0 Precautions Precautions/Isolations: Standard Precautions Referral Physician: Timothy Reason for Referral: Evaluation/Treatment Medical History Pertinent Medical History: CAD, COPD, HTN Additional Medical History wears O2 HS Current History admit with SOA Reviewed History: Yes Social History Home: Single Level Current Living Status: Spouse Entry Into Home: Stairs With Railing PT Steps Into Home: 5 Prior/Core FIM Prior Level of Function Functional [place] Measure 0=Not Assessed/NA 4=Minimal Assistance 1=Total Assistance 5=Supervision or Setup 2=Maximal Assistance 6=Modified [place] 3=Moderate Assistance 7=Complete [place] Bed Mobility: 6 Transfers (B,C,W/C) (FIM): 6 Gait: 6 PT Evaluation-Current Subjective Patient agrees to PT. O2 3L NC in place Pain Numeric Pain Scale: 0-No Pain Location: No Pain Reported Objective Patient Orientation: Normal For Age Problem Solving: Fair Attachments: Oxygen ROM/Strength ROM Lower Extremities bilateral LE WNL Strenght Lower Extremities bilateral LE WNL Integumentary/Posture Integumentary refer to nursing notes Bowel Incontinence: No Bladder Incontinence: No Posture slightly kyphotic Neuromuscular (Tone, Coordination, Reflexes) diminished coordination due to inactivity Sensory Vision: Functional Hearing: Functional Sensation Right Lower Extremit: Intact Sensation Left Lower Extremity: Intact Transfers Functional [place] Measure 0=Not Assessed/NA 4=Minimal Assistance 1=Total Assistance 5=Supervision or Setup 2=Maximal Assistance 6=Modified [place] 3=Moderate Assistance 7=Complete [place] Transfers (B, C, W/C) (FIM): 6 Scootin Rollin Supine to/from Sit: 6 Sit to/from Stand: 6 Gait Mode of Locomotion: Walk Anticipated Mode of Locomotion: Walk Gait (FIM): 4 Distance (FIM): 3=150 ft Distance: 150' Gait Level of Assist: 4 Gait Persons Needed: 1 Gait Assistive Device: FWW Comments/Gait Description very slow gait sequence Balance Sitting Static: Normal Sitting Dynamic: Normal Standing Static: Normal Standing Dynamic: Normal Assessment/Needs 61 y.o. female, will benefit from short term skilled PT to address functional strength and mobility to improve current LOF and to safely return to home with family at maximum LOF. Rehab Potential: Good Post Rehab Potential-Barriers: inactivity PLOF PT Skilled Nursing Goals Skilled Nursing Goals PT Skilled Nursing Goals Time Frame: Jul 27, 2017 Transfers (B,C,W/C) (FIM): 6 Gait (FIM): 6 Gait distance (FIM): 3=150 ft Distance: 200' Gait Level of Assist: 6 Gait Assistive Device: FWW Stairs (FIM): 5 # of Steps: 5 Stairs Level Of Assist: 5 household PT Plan Problem List Problem List: Activity Tolerance Treatment/Plan Treatment Plan: Continue Plan of Care Treatment Plan: Bed Mobility, Education, Functional Activity Taiwo, Functional Strength, Gait, Safety, Therapeutic Exercise, Transfers Treatment Duration: Jul 27, 2017 Frequency: 6 times per week Estimated Hrs Per Day: .25 hour per day Patient and/or Family Agrees t: Yes Safety Risks/Education Patient Education: Safety Issues Teaching Recipient: Patient Teaching Methods: Demonstration, Discussion Response to Teaching: Verbalize Understanding, Return Demonstration Discharge Recommendations Therapy D/C Recommendations: Home w/ Family Support Time/GCodes Time In: 930 Time Out: 940 Total Billed Treatment Time: 10 Total Billed Treatment 1 visit EVLowC 10 min G Codes Necessary: SOLEDAD Guevara PT Jul 16, 2017 10:13
--- NOTE | 2017-07-16 10:19 | Progress Note-Cardiology ---
Cardiology SOAP Progress Note Subjective: Still short of breath. No new symptoms Objective: I&O/Vital Signs Vital Sign - Last 12Hours 07/16/17 07/16/17 07/16/17 07/16/17 00:43 01:00 04:15 06:36 Temp 98.0 97.5 97.5 Pulse 75 61 67 67 Resp 18 18 18 B/P (MAP) 153/86 176/85 176/85 Pulse Ox 99 97 97 O2 Delivery Nasal Cannula Nasal Cannula Nasal Cannula O2 Flow Rate 2.00 2.00 2.00 07/16/17 07/16/17 08:37 09:53 Temp 95.8 Pulse 69 Resp 18 B/P (MAP) 158/95 Pulse Ox 99 98 O2 Delivery Nasal Cannula Nasal Cannula O2 Flow Rate 2.00 2.00 Weight (Pounds): 206 Weight (Ounces): 4.0 Weight (Calculated Kilograms): 93.552501 Constitutional: AAO x 3, well-developed, well-nourished Respiratory: No accessory muscle use, lungs clear to percussion, other (Fair to good air entry; exp wheezes) Cardiovascular: irregularly irregular, S1 and S2, systolic murmur (faint LAVON at cardiac base) Gastrointestional: No tender, soft, No guarding, No rebound, audible bowel sounds Extremities: No cyanosis, No significant edema Neurologic/Psychiatric: oriented x 3, grossly intact, power is 5/5 both on sides Skin: No rash on exposed areas, No ulcerations on exposed areas Results/Procedures: Labs Microbiology 07/10/17 Blood Culture - Final, Complete No growth 07/10/17 Urine Culture - Final, Complete Laboratory Tests 07/15/17 05:45 A/P: Assessment: Shortness of breath, multifactorial (as described below) Acute exac of COPD Obesity-hypoventilation and sleep apnea syndrome Acute diastolic CHF due to uncontrolled hypertension Uncontrolled hypertension There is prominent mediastinal and bilateral hilar lymphadenopathy seen on CTA of the chest - management per Dr. Thomas (awaiting bronch) Small to mod pericardial effusion, chronic. Echo of 07/10/17: LVEF 60-65%, small to mod pericard eff w/o evidence of hemodynamic significance (not significantly changed from an echo study of February 2017), mod concentric LVH, RVSP approx 60 mmHg. Repeat echo of 07/12/17 is essentially unchanged Pulmonary hypertension of undetermined etiology. PASP estimated to be approx 80 mmHg on echo of February 2017. RVSP estimated to be approx 60 mmHg on echo of 07/10/17 CAD. Her primary fuel retrofitting technician is Dr Knapp at [facility] - Cardiac cath of at [facility] - CAD - 70% left main stenosis prox, 50% prox LAD occlusion. The prox/ostial left main was stented with a 4.0 x 12 mm Synergy stent Chronic a-fib (she reports recent diagnosis) Pradaxa for stroke prophylaxis (has not taken in 3 days) TSH 0.27 - hyperthyroidism Plan: * Complex diagnostic and management issue * I discussed her case in detail with Dr Thomas of the [facility]. He is planning CT and bronch in the near future * May be best off on swing bed, given long illness and continuing symptoms, while continuing current therapy, including high-dose steroid initiated by ADALBERTO Moses MD FACP [facility] Jul 16, 2017 10:19
--- NOTE | 2017-07-16 12:23 | Progress Note-Hospitalist ---
Subjective HPI/CC On Admission Date Seen by Provider: Jul 16, 2017 Time Seen by Provider: 12:12 CC: Shortness of breath HPI: This is a 61-year-old lifetime nonsmoker white female that presents to the hospital as a direct admission for Dr. Thomas's office for shortness of breath. Her primary care provider is Dr. Henriquez at [facility]. She reports a history of asthma minimal problems with it but had a change of her status 2 weeks ago and began having more shortness of breath. She obtain an appointment with Dr. Thomas who evaluated her to be wheezing placed on IV steroids and workup was completed that now shows a pericardial effusion echocardiogram was just completed and I did confer with cardiology who will see her in consultation. She denies any history of sleep apnea or sleeping with the machine at night for oxygen. She is anxious about shortness of breath. Subjective/Events-last exam Reports feeling about the same as yesterday. Still feels SOB. Complains of poor appetite. Objective Exam Vital Signs Vital Sign - Last 12Hours 07/10/17 07/10/17 10:05 19:25 Temp 97.7 Pulse 83 Resp 36 B/P (MAP) 142/89 Pulse Ox 98 O2 Delivery Room Air O2 Flow Rate 2.00 Capillary Refill : General Appearance: No Apparent Distress, WD/WN Respiratory: Decreased Breath Sounds, No Rhonci, No Wheezing Gastrointestinal: Non Tender, Soft Neurologic/Psychiatric: Alert, Oriented x3 Assessment/Plan Assessment and Plan Assess & Plan/Chief Complaint See Problems Diagnosis/Problems Diagnosis/Problems (1) COPD exacerbation Status: Acute Assessment & Plan: Continue on IV steroids DuoNebs MAT protocol Continue oxygen titration (2) Essential (primary) hypertension Assessment & Plan: BP elevated yesterday, amlodipine increased Will monitor, maxed out on 3 meds currently, may benefit from spironolactone (3) Low TSH level Assessment & Plan: Lab from 07/12, will get T4 in AM (4) Pericardial effusion Assessment & Plan: Cardiology consulted, reportedly unchanged since last echo Per read no hemodynamic significance (5) Diastolic CHF Assessment & Plan: Cardiology consulted, appreciate recs Continue Lasix (6) Pulmonary HTN Status: Chronic Assessment & Plan: Pulmonology consulted appreciate recs (7) CAD (coronary artery disease) Status: Chronic Assessment & Plan: Cardiology consulted, appreciate recs (8) Obesity hypoventilation syndrome Status: Chronic (9) Prophylactic measure Assessment & Plan: Lovenox for DVT Saline Lock regular diet SANDRA VICTOR MD Jul 16, 2017 12:23
[2017-07-16] MEDS: CYCLOBENZAPRINE 10 MG (FLEXERIL) TAB PO PRN ×2 (12:56→20:54)
[2017-07-16] MEDS: ENOXAPARIN 40 MG/0.4 ML (LOVENOX) SYR SC SCH (17:22)
[2017-07-17] VITALS (7 sets, daily range): BP systolic 116–185; BP diastolic 57–96
[2017-07-17] MEDS: RT-ALBUTEROL SULF 2.5 MG/3 ML PRE-MIX VIAL IH SCH ×4 (01:51→22:05)
[2017-07-17] MEDS: methylPREDNISolone 40 MG/ML (Solu-MEDROL) VIAL IV SCH ×4 (04:26→22:36)
[2017-07-17 06:03] LABS: BASOPHILS % (AUTO) 0 % (0-10); EOSINOPHILS % (AUTO) 0 % (0-10); LYMPHOCYTES # (AUTO) 1.5 X 10^3 (1.0-4.0); LYMPHOCYTES % (AUTO) 12 % (12-44); MEAN CORPUSCULAR HEMOGLOBIN 28 PG (25-34); MEAN CORPUSCULAR HGB CONC 32 G/DL (32-36); MEAN CORPUSCULAR VOLUME 86 FL (80-99); MEAN PLATELET VOLUME 11.3 FL (7.4-10.4); MONOCYTES # (AUTO) 0.4 X 10^3 (0.0-1.0); MONOCYTES % (AUTO) 3 % (0-12); NEUTROPHILS # (AUTO) 10.3 X 10^3 (1.8-7.8); NEUTROPHILS % (AUTO) 85 % (42-75); PLATELET COUNT 223 10^3/uL (130-400); RED BLOOD COUNT 5.37 10^6/uL (4.35-5.85); RED CELL DISTRIBUTION WIDTH 14.5 % (10.0-14.5); WHITE BLOOD COUNT 12.2 10^3/uL (4.3-11.0)
[2017-07-17] MEDS: ALPRAZolam 0.25 MG (XANAX) TAB PO PRN ×2 (06:19→16:00)
[2017-07-17] MEDS: KCL 20 MEQ TAB (K-DUR) PO SCH (06:19)
[2017-07-17 06:23] LABS: ANION GAP 11 MMOL/L (5-14); BLOOD UREA NITROGEN 31 MG/DL (7-18); BUN/CREATININE RATIO 36; CALCIUM 9.4 MG/DL (8.5-10.1); CARBON DIOXIDE 31 MMOL/L (21-32); CHLORIDE 99 MMOL/L (98-107); CREATININE SERUM 0.85 MG/DL (0.60-1.30); GFR ESTIMATED > 60; GLUCOSE 169 MG/DL (70-105); POTASSIUM 3.9 MMOL/L (3.6-5.0); SODIUM 141 MMOL/L (135-145)
--- NOTE | 2017-07-17 06:49 | Pulmonary Progress Note ---
Subjective Time Seen by Provider: 06:50 Exam Exam Vital Signs Date Time Temp Pulse Resp B/P (MAP) Pulse Ox O2 Delivery O2 Flow Rate FiO2 07/17/17 04:26 97.8 65 18 148/94 99 Nasal Cannula 2.00 07/17/17 01:00 57 07/17/17 00:24 97.9 68 20 159/89 98 Nasal Cannula 2.00 07/16/17 20:30 98 Nasal Cannula 3.00 07/16/17 19:20 98.1 74 21 167/93 96 Nasal Cannula 2.00 07/16/17 19:13 Nasal Cannula 07/16/17 19:07 97 Nasal Cannula 2.00 07/16/17 19:00 64 07/16/17 15:30 96.5 72 22 182/92 97 Nasal Cannula 2.00 07/16/17 14:55 98 Nasal Cannula 2.00 07/16/17 13:27 71 07/16/17 12:00 96.1 65 24 156/90 98 Nasal Cannula 2.00 07/16/17 09:53 98 Nasal Cannula 2.00 07/16/17 08:37 95.8 69 18 158/95 99 Nasal Cannula 2.00 07/16/17 08:00 98 Nasal Cannula 3.00 07/16/17 07:43 56 General Appearance: No Apparent Distress, WD/WN HEENT: PERRL/EOMI, Normal ENT Inspection, Pharynx Normal Neck: Full Range of Motion, Normal Inspection, Non Tender, Supple, Carotid Bruit Respiratory: Decreased Breath Sounds, No Rhonci, No Wheezing Cardiovascular: No Edema, No Gallop, No Murmur, Irregularly Irregular Gastrointestinal: normal bowel sounds, non tender, soft, no organomegaly Extremity: Normal Inspection, Normal Range of Motion, Non Tender, No Calf Tenderness, Other (His bilateral pedal edema.) Neurologic/Psychiatric: Alert, Oriented x3 Skin: Normal Color, Warm/Dry Lymphatic: No Adenopathy Results Lab Laboratory Tests 07/17/17 05:15 Assessment/Plan Assessment/Plan COPDAE/Acute bronchitis -SVNs, advair -Continue Solumedrol 40 Q 6 for now CXR reviewed appears slightly improved Acute Diastolic CHFAE EF 60-65 % -Continue Lasix Mediastinal lymphadenopathy -Will repeat CT scan on Sunday -Will plan for EBUS next Sun. This can be done as out patient -PT needs to hold ASA and plavix for 5 days prior to procedure. Group 3 pulmonary HTN -- secondary to hypoxia small to moderate Pericardial effusion -Cardiology is following PUlmonary HTN probably group III Allergic rhinitis -Wendy Yusuf Clinical Quality Measures DVT/VTE Risk/Contraindication: Risk Factor Score Per Nursin RFS Level Per Nursing on Admit: 4+=Very High DRISS FUNES DO Jul 17, 2017 06:49
[2017-07-17] MEDS: LORATADINE (CLARITIN) 10 MG TAB PO SCH (08:08)
[2017-07-17] MEDS: FUROSEMIDE 40 MG/4 ML INJ (LASIX) IVP SCH (08:08)
[2017-07-17] MEDS: lisINopril 20 MG (ZESTRIL) TAB PO SCH (08:09)
[2017-07-17] MEDS: amLODIPine 10 MG (NORVASC) TAB PO SCH (08:09)
[2017-07-17] MEDS: SENNA W/DOCUSATE (SENOKOT S) TABLET PO SCH ×2 (08:09→20:53)
[2017-07-17] MEDS: MONTELUKAST 10 MG (SINGULAIR) TAB PO SCH (08:10)
[2017-07-17] MEDS: meTOprolol SUCCINATE 100 MG (TOPROL XL) TAB PO SCH ×2 (08:10→20:53)
[2017-07-17] MEDS: FAMOTIDINE 20 MG (PEPCID) TABLET PO SCH ×2 (08:10→20:53)
[2017-07-17] MEDS: BISACODYL 10 MG SUPP (DULCOLAX) PR SCH ×2 (08:11→20:53)
[2017-07-17] MEDS: FLEET ENEMA ADULT 1 EA BTL PR SCH ×2 (08:11→20:53)
[2017-07-17] MEDS: RT-ADVAIR HFA 115/21 MCG PER PUFF IH SCH ×2 (09:39→22:05)
[2017-07-17] MEDS: UMECLIDINIUM BROMIDE (INCRUSE ELLIPTA) 7'S IH SCH (09:39)
--- NOTE | 2017-07-17 10:29 | Progress Note-Cardiology ---
Cardiology SOAP Progress Note Subjective: Continues to feel short of breath Objective: I&O/Vital Signs Vital Sign - Last 12Hours 07/17/17 07/17/17 07/17/17 07/17/17 04:26 07:00 07:26 09:38 Temp 97.8 96.8 Pulse 65 61 50 Resp 18 24 B/P (MAP) 148/94 182/96 Pulse Ox 99 97 97 O2 Delivery Nasal Cannula Nasal Cannula Nasal Cannula O2 Flow Rate 2.00 2.00 2.00 07/17/17 15:01 Pulse Ox 96 O2 Delivery Nasal Cannula O2 Flow Rate 2.00 Weight (Pounds): 206 Weight (Ounces): 1.0 Weight (Calculated Kilograms): 93.512354 Constitutional: AAO x 3, well-developed, well-nourished Respiratory: No accessory muscle use, lungs clear to percussion, other (Fair to good air entry; exp wheezes) Cardiovascular: irregularly irregular, S1 and S2, systolic murmur (faint LAVON at cardiac base) Gastrointestional: No tender, soft, No guarding, No rebound, audible bowel sounds Extremities: No cyanosis, No significant edema Neurologic/Psychiatric: oriented x 3, grossly intact, power is 5/5 both on sides Skin: No rash on exposed areas, No ulcerations on exposed areas Results/Procedures: Labs Laboratory Tests 07/17/17 05:15: White Blood Count 12.2H, Red Blood Count 5.37, Hemoglobin 14.9, Hematocrit 46, Mean Corpuscular Volume 86, Mean Corpuscular Hemoglobin 28, Mean Corpuscular Hemoglobin Concent 32, Red Cell Distribution Width 14.5, Platelet Count 223, Mean Platelet Volume 11.3H, Neutrophils (%) (Auto) 85H, Lymphocytes (%) (Auto) 12, Monocytes (%) (Auto) 3, Eosinophils (%) (Auto) 0, Basophils (%) (Auto) 0, Neutrophils # (Auto) 10.3H, Lymphocytes # (Auto) 1.5, Monocytes # (Auto) 0.4, Eosinophils # (Auto) 0.0, Basophils # (Auto) 0.0, Sodium Level 141, Potassium Level 3.9, Chloride Level 99, Carbon Dioxide Level 31, Anion Gap 11, Blood Urea Nitrogen 31H, Creatinine 0.85, Estimat Glomerular Filtration Rate > 60, BUN/ Creatinine Ratio 36, Glucose Level 169H, Calcium Level 9.4, Free Thyroxine 0.76 Microbiology 07/10/17 Blood Culture - Final, Complete No growth 07/10/17 Urine Culture - Final, Complete A/P: Assessment: Shortness of breath, multifactorial (as described below) Acute exac of COPD Obesity-hypoventilation and sleep apnea syndrome Acute diastolic CHF due to uncontrolled hypertension Uncontrolled hypertension There is prominent mediastinal and bilateral hilar lymphadenopathy seen on CTA of the chest - management per Dr. Thomas (awaiting bronch) Small to mod pericardial effusion, chronic. Echo of 07/10/17: LVEF 60-65%, small to mod pericard eff w/o evidence of hemodynamic significance (not significantly changed from an echo study of February 2017), mod concentric LVH, RVSP approx 60 mmHg. Repeat echo of 07/12/17 is essentially unchanged Pulmonary hypertension of undetermined etiology. PASP estimated to be approx 80 mmHg on echo of February 2017. RVSP estimated to be approx 60 mmHg on echo of 07/10/17 CAD. Her primary toxics program officer is Dr Knapp at [facility] - Cardiac cath of at [facility] - CAD - 70% left main stenosis prox, 50% prox LAD occlusion. The prox/ostial left main was stented with a 4.0 x 12 mm Synergy stent Chronic a-fib (she reports recent diagnosis) Pradaxa for stroke prophylaxis (has not taken in 3 days) TSH 0.27 - hyperthyroidism Plan: * Complex diagnostic and management issue * Dr. Aguirre discussed her case in detail with Dr Thomas of the [facility]. * Per his notes, he is planning CT for Sunday and bronch for next Sunday * May be best off on swing bed, given long illness and continuing symptoms, while continuing current therapy, including high-dose steroid initiated by Dr Thomas Physician Assessment Physician Assessment Still short of breath Lungs: fair air entry, scattered wheezes Cor: reg Ext: mild edema A&R * As documented in out note above that I updated (italics) and as noted below * I discussed her case in detail with Dr Thomas on 07/16/17. He is not planning bronchoscopy until next week. Given that patient has CAD and a h/o cor stent in late 2015, we recommend continuation of aspirin for now. Dr Thomas needs it held for 5 days prior to bronch. Accordingly, we can stop aspirin on Sunday * BP remains uncontrolled and is likely contributing to diastolic CHF. We will add doxazosin to current regimen * Well repeat echo tomorrow. That would be a week from the echo of 07/11/17. This is to ensure stability of pericard eff YANET WHITE MARSHMALLOW RUNNER Jul 17, 2017 10:29 ADALBERTO AGUIRRE MD FACP [facility] CCDS Jul 17, 2017 15:12
--- NOTE | 2017-07-17 11:03 | Progress Note-Hospitalist ---
Subjective HPI/CC On Admission Date Seen by Provider: Jul 17, 2017 Time Seen by Provider: 10:10 CC: Shortness of breath HPI: This is a 61-year-old lifetime nonsmoker white female that presents to the hospital as a direct admission for Dr. Thomas's office for shortness of breath. Her primary care provider is Dr. Henriquez at [facility]. She reports a history of asthma minimal problems with it but had a change of her status 2 weeks ago and began having more shortness of breath. She obtain an appointment with Dr. Thomas who evaluated her to be wheezing placed on IV steroids and workup was completed that now shows a pericardial effusion echocardiogram was just completed and I did confer with cardiology who will see her in consultation. She denies any history of sleep apnea or sleeping with the machine at night for oxygen. She is anxious about shortness of breath. Subjective/Events-last exam Reports feeling the same as yesterday. Still SOB with ambulation to chair and bedside commode. Objective Exam Vital Signs Vital Sign - Last 12Hours 07/11/17 00:25 Temp 98.9 Pulse 78 Resp 19 B/P (MAP) 182/83 Pulse Ox 96 O2 Delivery Nasal Cannula O2 Flow Rate 2.00 Capillary Refill : General Appearance: No Apparent Distress, WD/WN Respiratory: No Accessory Muscle Use, No Respiratory Distress, Decreased Breath Sounds Cardiovascular: Regular Rate, Rhythm, No Edema, No Murmur Gastrointestinal: Normal Bowel Sounds, Non Tender, Soft Neurologic/Psychiatric: Alert, Oriented x3, Other (flat affect) Results/Procedures Lab Laboratory Tests 07/17/17 05:15 Assessment/Plan Assessment and Plan Assess & Plan/Chief Complaint See Problems Diagnosis/Problems Diagnosis/Problems (1) COPD exacerbation Status: Acute Assessment & Plan: Continue on IV steroids DuoNebs MAT protocol Continue oxygen titration (2) Essential (primary) hypertension Assessment & Plan: BP elevated before meds, will await reading after meds administered Will monitor, maxed out on 3 meds currently, may benefit from spironolactone (3) Low TSH level Assessment & Plan: Subclinical, T4 normal (4) Pericardial effusion Assessment & Plan: Cardiology consulted, reportedly unchanged since last echo Per read no hemodynamic significance (5) Diastolic CHF Assessment & Plan: Cardiology consulted, appreciate recs Continue Lasix (6) Pulmonary HTN Status: Chronic Assessment & Plan: Pulmonology consulted appreciate recs (7) CAD (coronary artery disease) Status: Chronic Assessment & Plan: Cardiology consulted, appreciate recs (8) Obesity hypoventilation syndrome Status: Chronic (9) Prophylactic measure Assessment & Plan: Lovenox for DVT Saline Lock regular diet SANDRA VICTOR MD Jul 17, 2017 11:03
[2017-07-17] MEDS: CYCLOBENZAPRINE 10 MG (FLEXERIL) TAB PO PRN ×2 (11:54→20:57)
--- NOTE | 2017-07-17 14:45 | Physical Therapy Progress Note ---
Therapy Progress Note Pt refused this morning (1150) but asked PT to "come back this afternoon and maybe she would feel better". PT returned at 1440, pt refused again. Pt reports very fatigued due to not sleeping well last night and having to get up a lot due to Lasix. Time:1440 1 visit, no tx. BROCK CHANG CLINIC CHARGE NURSE Jul 17, 2017 14:45
[2017-07-17] MEDS ORDERED: ASPIRIN 81 MG CHEW (CHILDREN'S ASA) PO NR (15:15)
[2017-07-17] MEDS: CATHETER FLUSH 10 ML SYR IV PRN (16:00)
[2017-07-17] MEDS: ENOXAPARIN 40 MG/0.4 ML (LOVENOX) SYR SC SCH (16:00)
[2017-07-17] MEDS ORDERED: doxAzosin 2 MG (CARDURA) TAB PO SCH (21:00)
[2017-07-18 04:40] VITALS: BP 136/90
[2017-07-18] MEDS: methylPREDNISolone 40 MG/ML (Solu-MEDROL) VIAL IV SCH ×3 (05:18→17:28)
[2017-07-18] MEDS: KCL 20 MEQ TAB (K-DUR) PO SCH (06:15)
[2017-07-18 08:00] VITALS: BP 180/87
--- NOTE | 2017-07-18 08:49 | Progress Note-Cardiology ---
Cardiology SOAP Progress Note Subjective: Shortness of breath slightly better No new symptoms Objective: I&O/Vital Signs Vital Sign - Last 12Hours 07/17/17 07/17/17 07/18/17 07/18/17 22:05 23:10 04:40 08:00 Temp 97.7 97.8 97.0 Pulse 71 73 66 Resp 18 18 22 B/P (MAP) 148/85 136/90 180/87 Pulse Ox 97 97 96 98 O2 Delivery Nasal Cannula Nasal Cannula Nasal Cannula Nasal Cannula O2 Flow Rate 2.00 2.00 2.00 2.00 07/18/17 08:12 Pulse Ox 96 O2 Delivery Nasal Cannula O2 Flow Rate 2.00 Weight (Pounds): 206 Weight (Ounces): 8.0 Weight (Calculated Kilograms): 93.464451 Constitutional: AAO x 3, well-developed, well-nourished Respiratory: No accessory muscle use, lungs clear to percussion, other (Fair to good air entry; exp wheezes) Cardiovascular: irregularly irregular, S1 and S2, systolic murmur (faint LAVON at cardiac base) Gastrointestional: No tender, soft, No guarding, No rebound, audible bowel sounds Extremities: No cyanosis, No significant edema Neurologic/Psychiatric: oriented x 3, grossly intact, power is 5/5 both on sides Skin: No rash on exposed areas, No ulcerations on exposed areas Results/Procedures: Labs Microbiology 07/10/17 Blood Culture - Final, Complete No growth 07/10/17 Urine Culture - Final, Complete Laboratory Tests 07/17/17 05:15 A/P: Assessment: Shortness of breath, multifactorial (as described below) Acute exac of COPD Obesity-hypoventilation and sleep apnea syndrome Acute diastolic CHF due to uncontrolled hypertension Uncontrolled hypertension There is prominent mediastinal and bilateral hilar lymphadenopathy seen on CTA of the chest - management per Dr. Thomas (awaiting bronch) Small to mod pericardial effusion, chronic. Echo of 07/10/17: LVEF 60-65%, small to mod pericard eff w/o evidence of hemodynamic significance (not significantly changed from an echo study of February 2017), mod concentric LVH, RVSP approx 60 mmHg. Repeat echo of 07/12/17 is essentially unchanged Pulmonary hypertension of undetermined etiology. PASP estimated to be approx 80 mmHg on echo of February 2017. RVSP estimated to be approx 60 mmHg on echo of 07/10/17 CAD. Her primary market research lead is Dr Knapp at [facility] - Cardiac cath of at [facility] - CAD - 70% left main stenosis prox, 50% prox LAD occlusion. The prox/ostial left main was stented with a 4.0 x 12 mm Synergy stent Chronic a-fib (she reports recent diagnosis) Pradaxa for stroke prophylaxis (has not taken in 3 days) TSH 0.27 - hyperthyroidism Plan: * Complex diagnostic and management issue * BP still not well controlled, and likely contributing of [place] CHF * Increase doxazosin * Repeat echo to f/u on pericard eff * Aspirin today (will hold for 5 days prior to bronch which is not planned by Dr Thomas till next week, not before ) ADALBERTO JUAN MD FACP [facility] CCDS Jul 18, 2017 08:49
[2017-07-18] MEDS: LORATADINE (CLARITIN) 10 MG TAB PO SCH (08:59)
[2017-07-18] MEDS: amLODIPine 10 MG (NORVASC) TAB PO SCH (08:59)
[2017-07-18] MEDS: meTOprolol SUCCINATE 100 MG (TOPROL XL) TAB PO SCH (08:59)
[2017-07-18] MEDS: FAMOTIDINE 20 MG (PEPCID) TABLET PO SCH (09:00)
[2017-07-18] MEDS: MONTELUKAST 10 MG (SINGULAIR) TAB PO SCH (09:00)
[2017-07-18] MEDS: SENNA W/DOCUSATE (SENOKOT S) TABLET PO SCH (09:00)
[2017-07-18] MEDS: FUROSEMIDE 40 MG/4 ML INJ (LASIX) IVP SCH (09:00)
[2017-07-18] MEDS ORDERED: ASPIRIN 81 MG CHEW (CHILDREN'S ASA) PO ONE (09:00)
[2017-07-18] MEDS: CYCLOBENZAPRINE 10 MG (FLEXERIL) TAB PO PRN (09:00)
[2017-07-18] MEDS: lisINopril 20 MG (ZESTRIL) TAB PO SCH (09:00)
[2017-07-18] MEDS ORDERED: doxAzosin 2 MG (CARDURA) TAB PO SCH (09:00)
[2017-07-18] MEDS: FLEET ENEMA ADULT 1 EA BTL PR SCH (09:01)
[2017-07-18] MEDS: BISACODYL 10 MG SUPP (DULCOLAX) PR SCH (09:01)
[2017-07-18] MEDS: RT-ALBUTEROL SULF 2.5 MG/3 ML PRE-MIX VIAL IH SCH ×2 (09:12→15:07)
[2017-07-18] MEDS: UMECLIDINIUM BROMIDE (INCRUSE ELLIPTA) 7'S IH SCH (09:13)
[2017-07-18] MEDS: RT-ADVAIR HFA 115/21 MCG PER PUFF IH SCH (09:13)
--- NOTE | 2017-07-18 09:59 | Pulmonary Progress Note ---
Exam Exam Vital Signs Date Time Temp Pulse Resp B/P (MAP) Pulse Ox O2 Delivery O2 Flow Rate FiO2 07/18/17 09:13 98 Nasal Cannula 2.00 07/18/17 08:12 96 Nasal Cannula 2.00 07/18/17 08:00 97.0 66 22 180/87 98 Nasal Cannula 2.00 07/18/17 04:40 97.8 73 18 136/90 96 Nasal Cannula 2.00 07/17/17 23:10 97.7 71 18 148/85 97 Nasal Cannula 2.00 07/17/17 22:05 97 Nasal Cannula 2.00 07/17/17 20:00 96.4 69 20 149/67 96 Nasal Cannula 2.00 07/17/17 19:40 Nasal Cannula 2.00 07/17/17 19:00 78 07/17/17 16:00 96.4 72 18 161/72 96 Nasal Cannula 2.00 07/17/17 15:01 96 Nasal Cannula 2.00 07/17/17 13:00 60 07/17/17 12:00 97.9 60 24 185/92 99 Nasal Cannula 2.00 General Appearance: No Apparent Distress, WD/WN HEENT: PERRL/EOMI, Normal ENT Inspection, Pharynx Normal Neck: Full Range of Motion, Normal Inspection, Non Tender, Supple, Carotid Bruit Respiratory: No Accessory Muscle Use, No Respiratory Distress, Decreased Breath Sounds Cardiovascular: Regular Rate, Rhythm, No Edema, No Murmur Gastrointestinal: normal bowel sounds, non tender, soft, no organomegaly Extremity: Normal Inspection, Normal Range of Motion, Non Tender, No Calf Tenderness, Other (His bilateral pedal edema.) Neurologic/Psychiatric: Alert, Oriented x3, Other (flat affect) Skin: Normal Color, Warm/Dry Lymphatic: No Adenopathy Results Lab Laboratory Tests 07/17/17 05:15 Assessment/Plan Assessment/Plan COPDAE/Acute bronchitis -SVNs, advair -Continue Solumedrol 40 Q 6 for now CXR reviewed appears slightly improved Acute Diastolic CHFAE EF 60-65 % -Continue Lasix Mediastinal lymphadenopathy -Will repeat CT scan on Sunday -Will plan for EBUS next Sun. This can be done as out patient -PT needs to hold ASA and plavix for 5 days prior to procedure. Group 3 pulmonary HTN -- secondary to hypoxia small to moderate Pericardial effusion -Cardiology is following PUlmonary HTN probably group III Allergic rhinitis -Wendy Yusuf 232 Clinical Quality Measures DVT/VTE Risk/Contraindication: Risk Factor Score Per Nursin RFS Level Per Nursing on Admit: 4+=Very High DRISS FUNES DO Jul 18, 2017 09:59
--- NOTE | 2017-07-18 10:42 | Discharge Summary-Hospitalist ---
Diagnosis/Chief Complaint Date of Admission Jul 10, 2017 at 10:05 Date of Discharge Discharge Date: Jul 18, 2017 Admission Diagnosis Assessment: Shortness of breath with wheezing in an asthmatic with worsened control over the past [address] scan showing pericardial effusion moderate amount an elevated BNP indicating volume overload with PVCs on telemetry Hypertension [id number] with systolic of 182 permissive hypertension per cardiology in management until patient is seen by cardiology HTN CAD Discharge Diagnosis See Problems (1) Pericardial effusion Status: Acute Assessment & Plan: Cardiology consulted,had previously been unchanged since February but repeat today showed worsening from 2cm to 2.5cm posteriorly After discussed with Cardiology here arranged for transfer for higher level of care given worsening effusion, symptoms and that surgical options are not available here Discussed with patient and in agreeance with plan Discussed with physician on staff at [facility] ( Dr. Billy Peters) who accepted patient (2) Hilar lymphadenopathy Assessment & Plan: Noted on CT, was planning for EBUS next week (3) COPD exacerbation Status: Acute Assessment & Plan: Continue on IV steroids DuoNebs MAT protocol Continue oxygen titration (4) Essential (primary) hypertension Assessment & Plan: Labile BP Maxed on 3 meds (5) Low TSH level Assessment & Plan: Subclinical, T4 normal (6) Diastolic CHF Assessment & Plan: Cardiology consulted, appreciate recs Continue Lasix (7) Pulmonary HTN Status: Chronic Assessment & Plan: Pulmonology consulted appreciate recs (8) CAD (coronary artery disease) Status: Chronic Assessment & Plan: Cardiology consulted, appreciate recs (9) Obesity hypoventilation syndrome Status: Chronic (10) Prophylactic measure Assessment & Plan: Lovenox for DVT Saline Lock regular diet Discharge Summary Consultations Cardiology: Dr. Aguirre Pulmonology: Dr. Thomas Discharge Physical Examination Allergies: Coded Allergies: Penicillins (Verified Allergy, Unknown, 03/12/17) Sulfa (Sulfonamide Antibiotics) (Verified Allergy, Unknown, 03/12/17) adhesive tape (Verified Allergy, Unknown, 03/12/17) Vitals & I&Os Vital Signs Date Time Temp Pulse Resp B/P (MAP) Pulse Ox O2 Delivery O2 Flow Rate FiO2 07/18/17 12:00 97.0 66 20 151/75 94 Nasal Cannula 2.00 Hospital Course See problems Labs (last 24 hrs) Microbiology 07/10/17 Blood Culture - Final, Complete No growth 07/10/17 Urine Culture - Final, Complete Discharge Home Medications: Active Scripts Active Enoxaparin Sodium 40 Mg/0.4 Ml Syringe 40 Mg SC Q24H 30 Days Solu-Medrol 40 mg Vial (Methylprednisolone Sod Succ/Pf) 40 Mg/1 Ml Vial 40 Mg IV Q6H 30 Days Doxazosin Mesylate 2 Mg Tablet 2 Mg PO BID 30 Days Furosemide 10 Mg/1 Ml Vial 40 Mg IVP DAILY 30 Days Klor-Con M20 (Potassium Chloride) 20 Meq Tab.er.prt 20 Meq PO DAILY@0700 30 Days Alprazolam 0.25 Mg Tablet 0.25 Mg PO Q8H PRN 30 Days Lisinopril 20 Mg Tablet 40 Mg PO DAILY 30 Days Amlodipine Besylate 10 Mg Tablet 10 Mg PO DAILY Metoprolol Succinate 100 Mg Tab.er.24h 100 Mg PO BID 30 Days Reported Fluticasone Propionate 16 Gm [place].susp 2 [place] NS DAILY PRN Proair Hfa (Albuterol Sulfate) 1 Puff Puff 2 Puff INH Q4H PRN Cyclobenzaprine HCl 10 Mg Tablet 10 Mg PO TID PRN Omeprazole 20 Mg Capsule.dr 20 Mg PO DAILY PRN Clopidogrel (Clopidogrel Bisulfate) 75 Mg Tablet 75 Mg PO DAILY Spiriva Respimat 1.25MCG/ACTUATION (Tiotropium [place]) 4 Gm Mist.inhal 2 Puff INH DAILY Albuterol Sulfate 2.5 Mg/3 Ml Vial.neb 2.5 Mg NEB Q4H PRN Nitroglycerin 0.4 Mg Tab.subl 0.4 Mg SL UD PRN Montelukast Sodium 10 Mg Tablet 10 Mg PO DAILY Instructions to patient/family Please see electronic discharge instructions given to patient. Clinical Quality Measures DVT/VTE Risk/Contraindication: Risk Factor Score Per Nursin RFS Level Per Nursing on Admit: 4+=Very High SANDRA VICTOR MD Jul 18, 2017 10:42
[2017-07-18] MEDS ORDERED: AMLO10TA2 PO (10:54)
[2017-07-18] MEDS ORDERED: ENOX40DI8 SC (10:54)
[2017-07-18] MEDS ORDERED: DOXA2TAB2 PO (10:54)
[2017-07-18] MEDS ORDERED: METH40VI2 IV (10:54)
[2017-07-18] MEDS ORDERED: LISI-552 PO (10:54)
[2017-07-18] MEDS ORDERED: FURO10VI IVP (10:54)
[2017-07-18] MEDS ORDERED: ALPR0.254 PO (10:54)
[2017-07-18] MEDS ORDERED: METO-274 PO (10:54)
[2017-07-18] MEDS ORDERED: POTA20TA8 PO (10:54)
--- NOTE | 2017-07-18 11:21 | Physical Therapy Progress Note ---
Therapy Progress Note PT arrived to see pt at 1110 & pt advised discharging to [facility]. Confirmed with Nurse that as soon as bed is available today then pt will discharge. Pt declined tx due to wanting to get ready for discharge and not wanting to be too tired for move. Time:1110 1 visit, no tx. BROCK CHANG ENGRAVER RUBBER Jul 18, 2017 11:21
[2017-07-18 12:00] VITALS: BP 151/75
[2017-07-18] MEDS: ENOXAPARIN 40 MG/0.4 ML (LOVENOX) SYR SC SCH (15:21)
[2017-07-18 16:00] VITALS: BP 173/84
[2017-07-18 20:00] VITALS: BP 148/90
== END 2017-07-18 19:50 | disposition short-term general hospital (02) | DRG 190 ==
LOC: 4TH 10:05
PROVIDERS: ADMIT Internal Medicine; ATTEND Internal Medicine
DX: F41.9 Anxiety disorder, unspecified; E05.90 Thyrotoxicosis, unspecified without thyrotoxic crisis or storm; F32.9 Major depressive disorder, single episode, unspecified; J44.0 Chronic obstructive pulmonary disease with (acute) lower respiratory infection; J20.9 Acute bronchitis, unspecified; E66.2 Morbid (severe) obesity with alveolar hypoventilation; I48.2 Chronic atrial fibrillation; R59.0 Localized enlarged lymph nodes; R63.4 Abnormal weight loss; I30.9 Acute pericarditis, unspecified; K59.00 Constipation, unspecified; K21.9 Gastro-esophageal reflux disease without esophagitis; I50.31 Acute diastolic (congestive) heart failure; Z95.5 Presence of coronary angioplasty implant and graft; I49.3 Ventricular premature depolarization; J44.1 Chronic obstructive pulmonary disease with (acute) exacerbation; I25.10 Atherosclerotic heart disease of native coronary artery without angina pectoris; E78.00 Pure hypercholesterolemia, unspecified; Z68.34 Body mass index [BMI] 34.0-34.9, adult; I27.2 Other secondary pulmonary hypertension; I11.0 Hypertensive heart disease with heart failure; J30.2 Other seasonal allergic rhinitis
CPT/HCPCS: 36415; 71020; 71275; 80048; 80053; 81000; 83735; 83880; 84439; 84443; 85025; 85610; 85730; 87040; 87088; 93306; 94640; 94760

== ENCOUNTER → 2017-08-02 | Outpatient (CLI) | payer MEDICAID ==
[~2017-08-02] MED LIST changes: +ALPR0.254 PO; +CARV6.252 PO; +CATHETER FLUSH 10 ML SYR IV PRN; +CLOP75TA28 PO; +CYCL10TA9 PO; +DOXA2TAB2 PO; +ENOX40DI8 SC; +FLUT16SP22 NS; +FURO10VI IVP; +HYDR25TA4 PO; +IOHEXOL 350 MG/ML 150 ML (OMNIPAQUE 350) VIAL IV ONE; +LISI-552 PO; +METH40VI2 IV; +METO-274 PO; +NS 100 ML (IVPB) BAG IV ONE; +OMEP20CA12 PO; +POTA20TA8 PO; +RT-ALBUINH INH; +TIOT4MIS5 INH
[2017-08-02 14:37] LABS: BASOPHILS # (AUTO) 0.1 10^3/uL (0.0-0.1); BASOPHILS % (AUTO) 1 % (0-10); EOSINOPHILS # (AUTO) 0.5 10^3/uL (0.0-0.3); EOSINOPHILS % (AUTO) 7 % (0-10); LYMPHOCYTES % (AUTO) 27 % (12-44); MEAN CORPUSCULAR HEMOGLOBIN 28 PG (25-34); MEAN CORPUSCULAR HGB CONC 33 G/DL (32-36); MEAN CORPUSCULAR VOLUME 85 FL (80-99); MEAN PLATELET VOLUME 10.6 FL (7.4-10.4); MONOCYTES # (AUTO) 0.4 X 10^3 (0.0-1.0); MONOCYTES % (AUTO) 5 % (0-12); NEUTROPHILS # (AUTO) 4.6 X 10^3 (1.8-7.8); NEUTROPHILS % (AUTO) 60 % (42-75); PLATELET COUNT 213 10^3/uL (130-400); RED BLOOD COUNT 4.66 10^6/uL (4.35-5.85); RED CELL DISTRIBUTION WIDTH 14.9 % (10.0-14.5); WHITE BLOOD COUNT 7.6 10^3/uL (4.3-11.0)
[2017-08-02 14:50] LABS: BAND NEUTROPHILS 2 %; BASOPHILS % (MANUAL) 0 %; EOSINOPHILS % (MANUAL) 9 %; LYMPHOCYTES % (MANUAL) 35 %; NEUTROPHILS % (MANUAL) 49 %; REACTIVE LYMPHOCYTES 1 %
[2017-08-02 14:51] LABS: ANISOCYTOSIS SLIGHT
[2017-08-02 14:53] LABS: ALANINE AMINOTRANSFERASE 19 U/L (0-55); ALBUMIN 3.8 GM/DL (3.2-4.5); ANION GAP 7 MMOL/L (5-14); ASPARTATE AMINO TRANSFERASE 16 U/L (5-34); BILIRUBIN,TOTAL 0.4 MG/DL (0.1-1.0); BLOOD UREA NITROGEN 11 MG/DL (7-18); BUN/CREATININE RATIO 16; CALCIUM 9.5 MG/DL (8.5-10.1); CARBON DIOXIDE 25 MMOL/L (21-32); CHLORIDE 109 MMOL/L (98-107); CREATININE SERUM 0.69 MG/DL (0.60-1.30); GFR ESTIMATED > 60; GLUCOSE 105 MG/DL (70-105); POTASSIUM 3.7 MMOL/L (3.6-5.0); SODIUM 141 MMOL/L (135-145); TOTAL PROTEIN 6.8 GM/DL (6.4-8.2)
[2017-08-02 16:03] LABS: ABG BASE EXCESS -1.5 MMOL/L (-2.5-2.5); ABG HCO3 22 MMOL/L (23-27); ABG OXYGEN SATURATION 98 % (94-100); ABG PCO2 32 MMHG (35-45); ABG PH 7.45 (7.37-7.43); ABG PO2 83 MMHG (79-93); ABG TCO2 23.1 MMOL/L (21.0-31.0)
[2017-08-02 16:05] LABS: ALLENS TEST YES-POS
[2017-08-02 16:06] LABS: PATIENT TEMP 96.6
--- NOTE | 2017-08-02 16:13 | Diagnostic Imaging Report ---
PROCEDURE: CT angiography of the chest with contrast. TECHNIQUE: Multiple contiguous axial images were obtained through the chest after uneventful bolus administration of intravenous contrast. Reconstructed CTA MIP acquisitions were also performed. INDICATION: Difficulty breathing. 125 mL of Omnipaque 350 is administered intravenously. FINDINGS: The pulmonary arteries are well opacified with no filling defects to suggest pulmonary embolism seen. The thoracic aorta is normal in caliber. No dissection or aneurysm. There is an enlarged left hilar lymph nodes measuring 1.6 cm and enlarged right hilar lymph node measuring 1 cm in short axis. Mildly enlarged mediastinal lymph nodes are also seen including a right paratracheal lymph node measuring 1.3 cm and an aortopulmonary window lymph node measuring 1.2 cm. When compared to 07/10/2017, the lymphadenopathy is slightly less prominent, particularly in the aortopulmonary window level. No axillary lymphadenopathy is seen. The heart size is mildly enlarged with a [id number] pericardial effusion. The lungs demonstrate scattered areas of air trapping without significant consolidation or mass. No suspicious pulmonary nodule. The osseous structures demonstrate mild degenerative changes. There is no significant abnormality seen in the upper abdomen. IMPRESSION: 1. No pulmonary embolism or aortic dissection. 2. Mediastinal and bilateral hilar mild lymphadenopathy is again seen, slightly less prominent compared to the prior exam. 3. [id number] pericardial effusion also slightly less prominent compared to the prior exam. Dictated by: Dictated on workstation # [id number]
== END ==
LOC: RAD 14:09
PROVIDERS: ATTEND Nurse Practitioner Family
DX: J90 Pleural effusion, not elsewhere classified (principal); R59.0 Localized enlarged lymph nodes
CPT/HCPCS: 36415; 71275; 80053; 82164; 82805; 83605; 83880; 85007; 85027

== ENCOUNTER → 2017-10-01 | Outpatient (CLI) | payer MEDICAID ==
[~2017-10-01] MED LIST changes: +IOHEXOL 350 MG/ML 100 ML (OMNIPAQUE 350) VIAL IV ONE; -IOHEXOL 350 MG/ML 150 ML (OMNIPAQUE 350) VIAL IV ONE; -METO-274 PO; +METO-395 PO
--- NOTE | 2017-10-01 19:45 | Diagnostic Imaging Report ---
PROCEDURE: CT chest with contrast only. TECHNIQUE: Multiple contiguous axial images were obtained through the chest after administration of intravenous contrast. INDICATION: Asthma. 75 mL of Omnipaque 350 is administered intravenously. COMPARISON: 08/02/2017. FINDINGS: The thyroid gland is slightly heterogeneous and is enlarged without change from the previous exam, likely related to multinodular goiter. The mediastinum demonstrates moderately enlarged nodes measuring up to 1.5 cm in the right paratracheal region. 1 cm aortopulmonary window node and 1.2 cm infracarinal lymph node is seen. Bilateral hilar mild lymphadenopathy is seen, up to 1.2 cm in the left hilum and 1 cm in the right hilum. This is overall similar to the previous study. The thoracic aorta is normal in caliber. There is moderate cardiomegaly with minimal pericardial effusion. There is no pleural effusion. The lungs demonstrate evidence of patchy areas of air-trapping with no significant consolidation, mass, or suspicious nodule identified. Sections in the upper abdomen demonstrate cholecystectomy clips. The osseous structures demonstrate minimal degenerative changes. IMPRESSION: Patchy areas of air-trapping are seen in the lungs. Cardiomegaly. Stable mild lymphadenopathy in the brittney and mediastinum, similar to 08/02/2017. Dictated by: Dictated on workstation # [id number]
== END ==
LOC: RAD 14:33
PROVIDERS: ATTEND Nurse Practitioner Family
DX: J98.4 Other disorders of lung (principal); I51.7 Cardiomegaly; J44.9 Chronic obstructive pulmonary disease, unspecified; J96.20 Acute and chronic respiratory failure, unspecified whether with hypoxia or hypercapnia; R59.0 Localized enlarged lymph nodes
CPT/HCPCS: 71260

== ENCOUNTER 2018-05-27 21:45 | Inpatient (IN) | payer MEDICAID ==
[~2018-05-27] VITALS: Ht 165.1 cm; Wt 96.8 kg
[~2018-05-27 21:45] MED LIST changes: -AMIO400T4 PO; +AMIO400T5 PO; +BENA40TA5 PO; -BNZ40T PO; -CATHETER FLUSH 10 ML SYR IV PRN; -IOHEXOL 350 MG/ML 100 ML (OMNIPAQUE 350) VIAL IV ONE; -NS 100 ML (IVPB) BAG IV ONE
[2018-05-27 23:30] VITALS: BP 168/77
--- OUTSIDE RECORDS SUMMARY | 2018-05-28 00:01 | XMS REPORT | Clinical Summary ---
Author Author [facility] Organization [facility] Address Unknown Phone Unavailable Care Team Providers Care K 12 Principal Name Role Phone Unverified, Unverified Md PCP Unavailable Raj Hernandez MD Unavailable Source Comments Some departments are not documenting in the electronic medical record. If you do not see the information that you expected, contact Release of Information in the Health Information Management department at [phone] for further assistance in locating additional records.[facility] Allergies Active Allergy Reactions Severity Noted Date Comments Adhesive RASH 07/16/2012 Tape [place] RASH 07/16/2012 Penicillins RASH 07/16/2012 Sulfa (Sulfonamide NAUSEA AND VOMITING 07/16/2012 Antibiotics) Iopanoic Acid RASH 07/16/2012 Current Medications Prescription Sig. Disp. Refills Start End Date Status Date polyethylene glycol 3350 Take 17 g by mouth daily. Active (GLYCOLAX; MIRALAX) 17 gram/dose powder bisacodyl (DULCOLAX) 5 mg Take 5 mg by mouth every Active tablet 24 hours as needed. promethazine (PHENERGAN) Take 25 mg by mouth every Active 25 mg tablet 6 hours as needed. tolterodine LA(+) (DETROL Take 4 mg by mouth daily. Active LA) 4 mg capsule HYDROcodone-acetaminophen Take 1 Tab by mouth every Active (+) (NORCO) 5-325 mg 4 hours as needed. tablet albuterol (VENTOLIN HFA, Inhale 2 Puffs by mouth Active PROAIR HFA) 90 every 6 hours as needed. mcg/actuation inhaler cyclobenzaprine Take 10 mg by mouth three Active (FLEXERIL) 10 mg tablet times daily as needed. albuterol-ipratropium Inhale 3 mL solution as Active (DUONEB) 0.5 mg-3 mg(2.5 directed four times mg base)/3 mL nebulizer daily. solution hydrochlorothiazide Take 25 mg by mouth Active (HYDRODIURIL) [address] tablet l[address]op[address]ole [address](+) Take 30 mg by mouth Active (PREVACID) 30 mg capsule daily. amLODIPine (NORVASC) 10 Take 10 mg by mouth Active mg tablet daily. montelukast (SINGULAIR) Take 10 mg by mouth at Active 10 mg tablet bedtime daily. isosorbide mononitrate SR Take 60 mg by mouth every Active (IMDUR) 60 mg tablet morning. potassium chloride SR Take 20 mEq by mouth Active (K-DUR) 20 mEq tablet daily. clopiDOGrel (PLAVIX) 75 Take 75 mg by mouth Active mg tablet daily. nitroglycerin (NITROSTAT) Place 0.4 mg under tongue Active 0.4 mg tablet every 5 minutes as needed. PARoxetine (PAXIL) 30 mg Take 30 mg by mouth Active tablet daily. atorvastatin (LIPITOR) 20 Take 20 mg by mouth Active mg tablet daily. benazepril (LOTENSIN) 40 Take 40 mg by mouth Active mg tablet daily. OLANZapine (ZYPREXA) 10 Take 10 mg by mouth at Active mg tablet bedtime daily. ibuprofen (MOTRIN) 800 mg Take 800 mg by mouth Active tablet every 6 hours as needed. albuterol 0.5% Inhale 2.5 mg solution as Active (PROVENTIL; VENTOLIN) 2.5 directed every 6 hours as mg/0.5 mL Nebu nebulizer needed. solution aspirin EC 325 mg tablet Take 325 mg by mouth Active daily. Active Problems Problem Noted Date Renal mass, left 07/16/2012 Overview: 1.7 cm enhancing non-cystic mass of left kidney on CT scan obtained on 06/14/12 Family History Medical History Relation Name Comments Heart Attack Father Cancer Maternal Grandfather Diabetes Paternal Grandmother Relation Name Status Comments Father Maternal Grandfather Paternal Grandmother Social History Tobacco Use Types Packs/Day Years Used Date Never Smoker Smokeless Tobacco: Never Used Alcohol Use Drinks/Week oz/Week Comments No Sex Assigned at Date Recorded Not on file Last Filed Vital Signs Vital Sign Reading Time Taken Blood Pressure 134/78 07/16/2012 10:50 AM CDT Pulse 74 07/16/2012 10:50 AM CDT Temperature 36.8 C (98.2 F) 07/16/2012 10:50 AM CDT Respiratory Rate 16 07/16/2012 10:50 AM CDT Oxygen Saturation - - Inhaled Oxygen - - Concentration Weight 97.3 kg (214 lb 6.4 oz) 07/16/2012 10:50 AM CDT Height 165.1 cm (5' 5") 07/16/2012 10:50 AM CDT Body Mass Index 35.68 07/16/2012 10:50 AM CDT Plan of Treatment Health Maintenance Due Date Last Done Comments HEPATITIS C SCREENING 1953 PHYSICAL (COMPREHENSIVE) 1960 EXAM PERTUSSIS VACCINE 1964 HIV SCREENING 1968 TETANUS VACCINE 1970 CERVICAL CANCER SCREENING 1983 BREAST CANCER SCREENING 1993 COLORECTAL CANCER 2003 SCREENING SHINGLES RECOMBINANT 2003 VACCINE (1 of 2) INFLUENZA VACCINE 07/29/2018 Results Not on filefrom Last 3 Months
[2018-05-28] MEDS ORDERED: ACETAMINOPHEN 325 MG TABLET PO PRN (00:15)
[2018-05-28] MEDS: NS IV 1000 ML 1,000 ML IV SCH ×2 (00:49→20:27)
[2018-05-28 04:29] VITALS: BP 139/65
[2018-05-28 05:49] LABS: MEAN PLATELET VOLUME 10.7 FL (7.4-10.4); RED BLOOD COUNT 4.62 10^6/uL (4.35-5.85); RED CELL DISTRIBUTION WIDTH 16.5 % (10.0-14.5); WHITE BLOOD COUNT 9.4 10^3/uL (4.3-11.0)
[2018-05-28 06:08] LABS: ALANINE AMINOTRANSFERASE 11 U/L (0-55); ALBUMIN 3.4 GM/DL (3.2-4.5); ALKALINE PHOSPHATASE 51 U/L (40-136); BILIRUBIN,TOTAL 0.5 MG/DL (0.1-1.0); BUN/CREATININE RATIO 25; CALCIUM 9.4 MG/DL (8.5-10.1); CARBON DIOXIDE 26 MMOL/L (21-32); CHLORIDE 104 MMOL/L (98-107); CREATININE SERUM 0.72 MG/DL (0.60-1.30); GFR ESTIMATED > 60; GLUCOSE 127 MG/DL (70-105); POTASSIUM 3.5 MMOL/L (3.6-5.0); SODIUM 139 MMOL/L (135-145); TOTAL PROTEIN 5.4 GM/DL (6.4-8.2)
[2018-05-28 08:00] VITALS: BP 132/78
[2018-05-28] MEDS ORDERED: FLUT1DIS26 INH (09:21)
[2018-05-28] MEDS ORDERED: AMLO10TA2 PO (09:21)
[2018-05-28] MEDS ORDERED: LISI10TA2 PO (09:21)
[2018-05-28] MEDS ORDERED: SPIR25TA5 PO (09:21)
[2018-05-28] MEDS ORDERED: CETI10TA17 PO (09:21)
[2018-05-28] MEDS ORDERED: ZOLP10TA5 PO (09:21)
[2018-05-28] MEDS ORDERED: IBUP-1780 PO (09:21)
[2018-05-28] MEDS ORDERED: ASPI-983 PO (09:21)
[2018-05-28] MEDS ORDERED: APIX5TAB PO (09:21)
[2018-05-28] MEDS ORDERED: ATOR40TA70 PO (09:21)
[2018-05-28] MEDS ORDERED: PRD10T PO (09:39)
--- NOTE | 2018-05-28 11:44 | History & Physical-Hospitalist ---
History of Present Illness HPI/Chief Complaint The patient is a 62-year-old white female who was referred here from the [place] emergency room after she presented with what was felt to be strokelike symptoms. The patient reported that she got up yesterday morning feeling weak and this progressed through the day. She has had a previous CVA with some minimum left-sided residua. She stated that this episode also included right- sided symptoms and a progressive generalized weakness. She did not experience any dysphagia or dysphasia. She was previously admitted here in June 2017 with what was precipitated by shortness of breath. She is a lifelong nonsmoker although her was a heavy smoker. She had a past history of coronary artery disease with stenting, hyperlipidemia, hypertension, and irregular heartbeat during that stay she was found to have pericardial effusion. Her workup in [place] did not show anything other than the previous CVA. She was felt to be stable and wanted to be transferred here for specialty care. Source: patient Exam Limitations: no limitations Date Seen 05/28/18 Time Seen by Provider: 11:39 Attending Physician Omid Kim MD PCP Conner Henriquez MD Referring Physician Date of Admission May 27, 2018 at 23:43 Home Medications & Allergies Home Medications Reviewed patient Home Medication Reconciliation performed by pharmacy medication reconciliations field support technician and/or nursing. Patients Allergies have been reviewed. Allergies Allergies Coded Allergies Penicillins (Verified Allergy, Unknown, 03/12/17) Sulfa (Sulfonamide Antibiotics) (Verified Allergy, Unknown, 03/12/17) adhesive tape (Verified Allergy, Unknown, 03/12/17) Past Fuizfqr-Lmubec-Tupksq Hx Past Med/Social Hx: Reviewed Nursing Past Med/Soc Hx Patient Social History Alcohol Use: Denies Use Recreational Drug Use: No Smoking Status: Never a Smoker Physical Abuse Screen: No Sexual Abuse: No Recent Foreign Travel: No Contact w/other who traveled: No Recent Hopitalizations: Yes (LUNG ISSUES-02/2017; dc'd from [facility] on 05/24/18) Recent Infectious Disease Expo: No Seasonal Allergies Seasonal Allergies: Yes Past Medical History Respiratory: Asthma Currently Using CPAP: No Currently Using BIPAP: No Cardiac: Coronary Artery Disease, High Cholesterol, Hypertension, Irregular Heartbeat Reproductive: No Sexually Transmitted Disease: No HIV/AIDS: No Genitourinary: UTI-Chronic Gastrointestinal: Gastroesophageal Reflux Musculoskeletal: Chronic Back Pain Loss of Vision: Bilateral Hearing Impairment: Denies Psychosocial: Anxiety, Depression History of Blood Disorders: No Adverse Reaction to Blood Pruett: No (N/A) Family History Colon cancer G8 BROTHER Diabetes mellitus G8 BROTHER G8 SISTER FHx: heart disease 19 FATHER 19 MOTHER Myocardial infarction 19 FATHER G8 SISTER Review of Systems Constitutional: see HPI EENTM: no symptoms reported Respiratory: cough, dyspnea on exertion Cardiovascular: Hx of Intervention Gastrointestinal: no symptoms reported Genitourinary: dysuria, incontinence : No Musculoskeletal: muscle weakness Skin: no symptoms reported Psychiatric/Neurological: No Symptoms Reported Physical Exam Physical Exam Vital Signs Vital Signs - First Documented 05/27/18 05/27/18 23:25 23:30 Temp 97.6 Pulse 80 Resp 19 B/P (MAP) 168/77 (107) Pulse Ox 94 O2 Delivery Nasal Cannula O2 Flow Rate 2.00 Capillary Refill : Height, Weight, BMI Height: 5'5.00" Weight: 214lbs. 8.0oz. 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 Assessment/Plan Admission Diagnosis Generalized weakness. Strokelike symptoms. History of previous CVA Admission Status: Inpatient Order (span 2 midnights) Reason for Inpatient Admission: Generalized weakness. 2.strokelike symptoms Assessment and Plan Patient will have MRI with contrast. PT and OT for evaluation Clinical Quality Measures DVT/VTE Risk/Contraindication: Risk Factor Score Per Nursin RFS Level Per Nursing on Admit: 4+=Very High Contraindications-Pharm: Other *list below* Contraindications-Mechi: Other *list below* Other: WILL NOTIFY DR. KIM OF NEED FOR DVT INTERVENTION TO BE STARTED OMID KIM MD May 28, 2018 11:44
[2018-05-28 11:55] VITALS: BP 156/82
[2018-05-28] MEDS ORDERED: RT-ALBUTEROL SULF 2.5 MG/3 ML PRE-MIX VIAL IH PRN (12:00)
[2018-05-28] MEDS ORDERED: IBUPROFEN 800 MG (MOTRIN) TAB PO PRN (12:00)
[2018-05-28] MEDS ORDERED: NITROGLYCERIN 0.4 MG SL TABS BTL 25'S SL PRN (12:00)
[2018-05-28] MEDS ORDERED: GADOBUTROL 10 MMOL/10 ML (GADAVIST) VIAL IV ONE (12:30)
[2018-05-28] MEDS ORDERED: RT-ALBUTEROL HFA (VENTOLIN) PER PUFF IH PRN (12:30)
--- NOTE | 2018-05-28 12:56 | Diagnostic Imaging Report ---
PROCEDURE: MR imaging of the brain with and without contrast. TECHNIQUE: Multiplanar, multisequence MR imaging of the brain was performed with and without contrast. INDICATION: Bilateral leg weakness. No prior studies are available for comparison. Ventricular size normal. There is significant periventricular white matter changes noted consistent with chronic microvascular ischemia. Multiple old lacunar infarcts bilateral basal ganglia. There is a tiny focus of diffusion restriction in the left frontal lobe white matter consistent with an acute left frontal microinfarct. No intracranial hemorrhage is seen. There is no mass effect or midline shift. The normal expected flow-voids within the carotid siphons are seen. No abnormal enhancement is identified following contrast administration. Corpus callosum is unremarkable. The sella and parasellar structures are unremarkable. IMPRESSION: 1. Periventricular white matter changes consistent with chronic microvascular ischemia with multiple bilateral old lacunar infarcts. There is an acute microinfarct in the left frontal lobe white matter, nonhemorrhagic. No other significant abnormality is seen. Results were called and discussed with Dr. Chand prior to this dictation. Dictated by: Dictated on workstation # [id number]
[2018-05-28] MEDS: FLUTICASONE NASAL SPRAY (FLONASE) 16 GM BTL NS SCH (13:46)
--- NOTE | 2018-05-28 14:56 | Physical Therapy Evaluation ---
PT Evaluation-General Medical Diagnosis Admission Date May 27, 2018 at 23:43 Medical Diagnosis: ataxia/possible CVA/HTN Onset Date: May 27, 2018 Therapy Diagnosis Therapy Diagnosis: generalized weakness/debility Height/Weight Height (Feet): 5 Height (Inches): 5.00 Weight (Pounds): 214 Weight (Ounces): 8.0 Precautions Precautions/Isolations: Fall Prevention, Standard Precautions Weight Bear Status Right Lower Extremity: Right Weight Bearing/Tolerated Left Lower Extremity: Left Weight Bearing/Tolerated Referral Physician: Jagruti Reason for Referral: Evaluation/Treatment Medical History Pertinent Medical History: CAD, COPD, HTN Current History from [facility] ER to here with neuro like symptoms Reviewed History: Yes Social History Home: Single Level Current Living Status: Other Family Entry Into Home: Stairs With Railing PT Steps Into Home: 6 Prior/Core FIM Prior Level of Function Functional [place] Measure 0=Not Assessed/NA 4=Minimal Assistance 1=Total Assistance 5=Supervision or Setup 2=Maximal Assistance 6=Modified [place] 3=Moderate Assistance 7=Complete [place] Bed Mobility: 6 Transfers (B,C,W/C) (FIM): 6 Gait: 6 FWW or cane PT Evaluation-Current Subjective Patient requires much encouragement to participate with PT. Pain Numeric Pain Scale: 0-No Pain Location: No Pain Reported Objective Patient Orientation: Normal For Age Problem Solving: Fair Attachments: Oxygen, Galarza Catheter, IV ROM/Strength ROM Lower Extremities bilateral LE WNL Strength Lower Extremities patient is inconsistent with MMT. She presents with extended LE's in bed with inability to bend her knee or ankles to go from supine to sit. In sit, patient is resistive with MMT all directions, however, demonstrates the ability to perform sit<>stand without assistance. Integumentary/Posture Integumentary refer to nursing notes Bowel Incontinence: No Bladder Incontinence: Galarza Cath Posture WFL Neuromuscular (Tone, Coordination, Reflexes) grossly intact (inconsistent with all testing) Sensory Vision: Functional Hearing: Functional Sensation Right Lower Extremit: Intact Sensation Left Lower Extremity: Intact Transfers Functional [place] Measure 0=Not Assessed/NA 4=Minimal Assistance 1=Total Assistance 5=Supervision or Setup 2=Maximal Assistance 6=Modified [place] 3=Moderate Assistance 7=Complete [place] Transfers (B, C, W/C) (FIM): 4 Scootin Rollin Supine to/from Sit: 4 Sit to/from Stand: 5 Gait Mode of Locomotion: Walk Anticipated Mode of Locomotion: Walk Gait (FIM): 1 Distance (FIM): 1=up to 49 ft Distance: 20' Gait Level of Assist: 4 Gait Assistive Device: FWW Comments/Gait Description stiff leg gait sequence with shuffle gait sequence. Again, inconsistent with testing. Balance Sitting Static: Normal Sitting Dynamic: Normal Standing Static: Normal Standing Dynamic: Normal Assessment/Needs 62 y.o. female, will be seen short term by skilled PT to address functional strength and mobility to improve current LOF and to safely return to home with family. Rehab Potential: Fair PT Assisted Goals Assisted Goals PT Assisted Goals Time Frame: Jun 01, 2018 Transfers (B,C,W/C) (FIM): 5 Gait (FIM): 1 Gait distance (FIM): 1=up to 49 ft Distance: 45' Gait Level of Assist: 5 Gait Assistive Device: FWW Stairs (FIM): 5 # of Steps: 4 Stairs Level Of Assist: 5 PT Plan Problem List Problem List: Activity Tolerance, Safety, Balance, Gait, Transfer Treatment/Plan Treatment Plan: Continue Plan of Care Treatment Plan: Bed Mobility, Education, Functional Activity Taiwo, Functional Strength, Gait, Safety, Therapeutic Exercise, Transfers Treatment Duration: Jun 01, 2018 Frequency: 5 times per week Estimated Hrs Per Day: .25 hour per day Patient and/or Family Agrees t: Yes Safety Risks/Education Patient Education: Safety Issues Teaching Recipient: Patient Teaching Methods: Discussion Response to Teaching: Reinforcement Needed Discharge Recommendations Therapy D/C Recommendations: Home w/ Family Support Time/GCodes Time In: 1350 Time Out: 1410 Total Billed Treatment Time: 20 Total Billed Treatment 1 visit EVMod 20 min G Codes Necessary: No SOLEDAD JAMES PT May 28, 2018 14:56
[2018-05-28 15:15] VITALS: BP 168/77
[2018-05-28] MEDS: MONTELUKAST 10 MG (SINGULAIR) TAB PO SCH (20:27)
[2018-05-28] MEDS: APIXABAN 5 MG (ELIQUIS) TABLET PO SCH (20:27)
[2018-05-28] MEDS: ATORVASTATIN 40 MG (LIPITOR) TABLET PO SCH (20:27)
[2018-05-28 20:50] VITALS: BP 177/73
[2018-05-29] VITALS (7 sets, daily range): BP systolic 144–175; BP diastolic 72–87
[2018-05-29] MEDS: PANTOPRAZOLE 20 MG TABLET (PROTONIX) PO SCH (06:34)
[2018-05-29] MEDS: amLODIPine 10 MG (NORVASC) TAB PO SCH (08:37)
[2018-05-29] MEDS: APIXABAN 5 MG (ELIQUIS) TABLET PO SCH ×2 (08:37→21:17)
[2018-05-29] MEDS: ASPIRIN E.C. 81 MG (ECOTRIN) TAB PO SCH (08:37)
[2018-05-29] MEDS: lisINopril 10 MG (PRINIVIL) TABLET PO SCH (08:37)
[2018-05-29] MEDS: SPIRONOLACTONE 25 MG (ALDACTONE) TAB PO SCH (08:37)
[2018-05-29] MEDS: FLUTICASONE NASAL SPRAY (FLONASE) 16 GM BTL NS SCH (08:37)
[2018-05-29] MEDS: CLOPIDOGREL 75 MG (PLAVIX) TABLET PO SCH (08:37)
--- NOTE | 2018-05-29 10:27 | Progress Note-Hospitalist ---
Subjective HPI/CC On Admission Date Seen by Provider: May 29, 2018 Time Seen by Provider: 10:30 The patient is a 62-year-old white female who was referred here from the [place] emergency room after she presented with what was felt to be strokelike symptoms. The patient reported that she got up yesterday morning feeling weak and this progressed through the day. She has had a previous CVA with some minimum left-sided residua. She stated that this episode also included right- sided symptoms and a progressive generalized weakness. She did not experience any dysphagia or dysphasia. She was previously admitted here in June 2017 with what was precipitated by shortness of breath. She is a lifelong nonsmoker although her was a heavy smoker. She had a past history of coronary artery disease with stenting, hyperlipidemia, hypertension, and irregular heartbeat during that stay she was found to have pericardial effusion. Her workup in [place] did not show anything other than the previous CVA. She was felt to be stable and wanted to be transferred here for specialty care. Subjective/Events-last exam Patient not walking wel MRI confirmed microinfarct Wheezing today and has issues with COPD at home and uses O2 at night I conferred with Dr Martinez langley, her PCP, and revealed she was just in hospital for AECOPD last week. Will DC catheter Bowels not moving yet Consulted Dr Llanes for elevated BNP and she sees [place] [facility] regularly. [facility] wants to take the patient once stable. Ordered ECHO Added steroids IV Review of Systems General: Fatigue, Malaise Pulmonary: Dyspnea Neurological: Incoordination Objective Exam Vital Signs Vital Signs Date Time Temp Pulse Resp B/P (MAP) Pulse Ox O2 Delivery O2 Flow Rate FiO2 05/29/18 16:10 96.1 86 38 168/87 (114) 92 Nasal Cannula 2.00 Capillary Refill : General Appearance: WD/WN, Chronically ill, Mild Distress (due to wheezing), Obese Respiratory: Accessory Muscle Use, Decreased Breath Sounds, Respiratory Distress, Wheezing Cardiovascular: Regular Rate, Rhythm, No Edema Neurologic/Psychiatric: Alert, Oriented x3, No Motor/Sensory Deficits, Normal Mood/Affect Results/Procedures Lab Laboratory Tests 05/29/18 10:55 Patient resulted labs reviewed. Assessment/Plan Assessment and Plan Assess & Plan/Chief Complaint s/p CVA ischemic type not a tpa candidate AECOPD w/recent hospital stay for same dx per PCP records Elevated BNP Morbid obesity Plan: IV steroids, Nebs, Pulmicort DC catheter PT/OT Consult Dr Mario Alberto JOSEPH Diagnosis/Problems Diagnosis/Problems (1) CVA (cerebral vascular accident) Status: Acute Qualifiers: CVA mechanism: unspecified Qualified Codes: I63.9 - Cerebral infarction, unspecified (2) Ataxia Status: Acute (3) Morbid obesity Status: Chronic (4) Debility Status: Chronic (5) Poor prognosis Status: Acute (6) COPD exacerbation Status: Chronic (7) CAD (coronary artery disease) Status: Chronic Qualifiers: Coronary Disease-Associated Artery/Lesion type: [place] artery [place] vs. transplanted heart: [place] heart Associated angina: without angina Qualified Codes: I25.10 - Atherosclerotic heart disease of [place] coronary artery without angina pectoris (8) Diastolic CHF Status: Acute Qualifiers: Heart failure chronicity: acute Qualified Codes: I50.31 - Acute diastolic (congestive) heart failure (9) Essential (primary) hypertension Status: Chronic Clinical Quality Measures DVT/VTE Risk/Contraindication: Risk Factor Score Per Nursin RFS Level Per Nursing on Admit: 4+=Very High Contraindications-Pharm: Other *list below* Contraindications-Mechi: Other *list below* Other: WILL NOTIFY DR. KIM OF NEED FOR DVT INTERVENTION TO BE STARTED MIGEL MCGUIRE DO May 29, 2018 10:27
--- NOTE | 2018-05-29 10:34 | Physical Therapy Progress Note ---
Therapy Progress Note Patient in bed with family in the room. She refuses treatment at this time and states that she already walked recently. AMNA MIX PT May 29, 2018 10:34
[2018-05-29] MEDS ORDERED: RT-ALBUTEROL/IPRATROPIUM 3 ML (DUONEB) VIAL ONE (10:37)
[2018-05-29] MEDS ORDERED: RT-BUDESONIDE NEBS 0.5 MG/2ML (PULMICORT) AMP ONE (10:39)
[2018-05-29] MEDS: RT-BUDESONIDE NEBS 0.5 MG/2ML (PULMICORT) AMP INH SCH ×2 (10:48→18:50)
[2018-05-29] MEDS: RT-ALBUTEROL SULF 2.5 MG/3 ML PRE-MIX VIAL IH SCH ×4 (10:54→22:31)
[2018-05-29 10:59] LABS: ABG BASE EXCESS 2.8 MMOL/L (-2.5-2.5); ABG OXYGEN SATURATION 98 % (94-100); ABG PCO2 46 MMHG (35-45); ABG PO2 95 MMHG (79-93); ABG TCO2 28.4 MMOL/L (21.0-31.0); ALLENS TEST YES-POS; INSPIRED O2 2.5 L; PATIENT TEMP 99.9; VENTILATOR NO
[2018-05-29 11:05] LABS: BASOPHILS % (AUTO) 0 % (0-10); EOSINOPHILS # (AUTO) 0.5 10^3/uL (0.0-0.3); EOSINOPHILS % (AUTO) 3 % (0-10); HEMATOCRIT 43 % (35-52); HEMOGLOBIN 14.2 G/DL (11.5-16.0); LYMPHOCYTES # (AUTO) 1.2 X 10^3 (1.0-4.0); LYMPHOCYTES % (AUTO) 7 % (12-44); MEAN CORPUSCULAR HEMOGLOBIN 29 PG (25-34); MEAN CORPUSCULAR HGB CONC 33 G/DL (32-36); MEAN CORPUSCULAR VOLUME 87 FL (80-99); MEAN PLATELET VOLUME 10.9 FL (7.4-10.4); MONOCYTES # (AUTO) 0.9 X 10^3 (0.0-1.0); MONOCYTES % (AUTO) 5 % (0-12); NEUTROPHILS # (AUTO) 15.2 X 10^3 (1.8-7.8); NEUTROPHILS % (AUTO) 86 % (42-75); PLATELET COUNT 190 10^3/uL (130-400); RED BLOOD COUNT 4.92 10^6/uL (4.35-5.85); RED CELL DISTRIBUTION WIDTH 16.7 % (10.0-14.5); WHITE BLOOD COUNT 17.7 10^3/uL (4.3-11.0)
--- NOTE | 2018-05-29 11:25 | Occupational Therapy Eval ---
OT Evaluation-General/PLF Medical Diagnosis Admission Date May 27, 2018 at 23:43 Medical Diagnosis: ataxia/possible CVA/HTN Onset Date: May 27, 2018 Therapy Diagnosis Therapy Diagnosis: Weakness Height/Weight Height (Feet): 5 Height (Inches): 5.00 Weight (Pounds): 214 Weight (Ounces): 8.0 Precautions Precautions/Isolations: Fall Prevention, Standard Precautions Safety Interventions: None Weight Bear Status Weight Bearing Restriction: Weight Bearing/Tolerated Referral Physician: Jagruti Referral Reason: Activity Tolerance, Self Care, Evaluation/Treatment, Strengthening/ROM Medical History Pertinent Medical History: CAD, COPD, CVA, GERD, HTN Current History Pt. came to ER with stroke like symptoms. Reviewed History: Yes Social History Home: Single Level Current Living Status: Spouse Entry Into Home: Stairs With Railing Steps Into Home: 6 ADL-Prior Level of Function ADL PLOF Comments Pt. states that she feels "weak all over." Pt. is hard to understand and does not speak clearly. Has a cough but states that it started last night. Reports no pain. DME/Equipment: Tub/Shower DME/Equipment Comments Pt. states that she does not have any equipment. Lives with her spouse but reports that he is not in good health. Drive Self: No OT Current Status Subjective Pt. reports that she is weak all over. States that she doesn't feel well but does not articulate what is wrong. Appearance Pt. in bed. Catheter has leaked on bed. Nursing notified and pt. agrees to get out of bed. Mental Status/Objective Patient Orientation: Unable to Assess Attachments: Galarza Catheter, IV Current Hand Dominance: Right Upper Extremity ROM Pt. is only able to lift bilateral shoulders to approximately 90 degrees. Upper Extremity Strength Pt. 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 ADL-Treatment Functional [place] Measure 0=Not Assessed/NA 4=Minimal Assistance 1=Total Assistance 5=Supervision or Setup 2=Maximal Assistance 6=Modified [place] 3=Moderate Assistance 7=Complete IndependenceIRFPAI Quality Coding Scale 6 Independent with activity with or without an assistive device 5 Patient requires set up or clean up by helper. Patient completes activity by themselves 4 Supervision or touching assist (CGA). [place] provide cues , steadying assist 3 The helper provides less than half the effort to complete the activity 2 The helper provides more than half the effort to complete the activity 1 Dependent. The helper does all the effort to complete an activity 7 Patient refused to complete or attempt activity 9 The patient did not perform the activity before the current illness or injury 88 Not attempted due to Medical conditions or safety concerns Grooming (FIM): 2 (Pt. does not initiate brushing hair. OT does this for her.) Bathing (FIM): 2 (OT washes bilateral feet and gonzalo areas as pt. states that she is unable to.) Lower Body Dressing (FIM): 1 (Dependent to doff/don socks.) Toileting (FIM): 1 (Pt. has catheter in but has leaked onto bed.) Transfers (B, C, W/C) (FIM): 3 (Mod assist supine-sit and min sit-stand and transfer to chair.) Education OT Patient Education: Correct positioning, Modified ADL techniques, Progress toward Goal/Update tx plan, Purpose of tx/functional activities, Reviewed precautions, Rehab process, Transfer techniques Teaching Recipient: Patient Teaching Methods: Demonstration, Discussion Response to Teaching: Verbalize Understanding, Return Demonstration OT Short Term Goals Short Term Goals Time Frame: Jun 05, 2018 Eating(FIM): 5 Grooming(FIM): 4 Bathing(FIM): 4 Upper Body Dressing(FIM): 4 Lower Body Dressing(FIM): 4 Toileting(FIM): 4 Transfers (B,C,W/C) (FIM): 4 Toilet/Commode Transfer(FIM): 4 Shower Transfer(FIM): 4 Additional Short Term Goals: 1-Demonstrate ADL Tasks, 2-Verbalize Understanding , 3-ImproveStrength/Taiwo 1=Demonstrate adherence to instructed precautions during ADL tasks. 2=Patient will verbalize/demonstrate understanding of assistive devices/ modifications for ADL. 3=Patient will improve strength/tolerance for activity to enable patient to perform ADL's. OT Halfway Goals Halfway Goals Time Frame: Jun 19, 2018 Eating (FIM): 6 Grooming(FIM): 5 Bathing(FIM): 5 Upper Body Dressing(FIM): 5 Lower Body Dressing(FIM): 5 Toileting(FIM): 6 Transfers (B,C,W/C) (FIM): 6 Toilet/Commode Transfer(FIM): 6 Shower Transfer(FIM): 5 Additional Goals: 1-Demonstrate ADL Tasks, 2-Verbalize Understanding, 3- ImproveStrength/Taiwo 1=Demonstrate adherence to instructed precautions during ADL tasks. 2=Patient will verbalize/demonstrate understanding of assistive devices/ modifications for ADL. 3=Patient will improve strength/tolerance for activity to enable patient to perform ADL's. OT Education/Plan Problem List/Assessment Assessment: Decreased Activ Tolerance, Decreased UE Strength, Dependent Transfers, Impaired Bed Mobility, Impaired Cognition, Impaired Funct Balance, Impaired I ADL's, Impaired Self-Care Skills, Restricted Funct UE ROM Discharge Recommendations Plan/Recommendations: Continue POC Therapy D/C Recommendations: Home w/ Family Support, Occupational Therapy Home Care, Scheduled Assistance Comment Discharge location and equipment needs to be determined. Treatment Plan/Plan of Care Treatment,Training & Education: Yes Patient would benefit from OT for education, treatment and training to promote independence in ADL's, mobility, safety and/or upper extremity function for ADL' s. Treatment Duration: Jun 19, 2018 Frequency: 5 times per week Estimated Hrs Per Day: .25 hour per day Agreement: Yes Rehab Potential: Fair Time/GCodes Start Time: 09:00 Stop Time: 09:35 Total Time Billed (hr/min): 35 Billed Treatment Time 1, EVH x 15minutes, ADL x 20minutes ROSE DE ANDA OT May 29, 2018 11:25
[2018-05-29 11:28] LABS: BAND NEUTROPHILS 0 %; LYMPHOCYTES % (MANUAL) 9 %; NEUTROPHILS % (MANUAL) 88 %
[2018-05-29 11:29] LABS: BASOPHILS % (MANUAL) 0 %; EOSINOPHILS % (MANUAL) 1 %; MONOCYTES % (MANUAL) 2 %; RBC MORPH NORMAL
[2018-05-29 11:30] LABS: ALANINE AMINOTRANSFERASE 15 U/L (0-55); ALKALINE PHOSPHATASE 52 U/L (40-136); BILIRUBIN,TOTAL 1.1 MG/DL (0.1-1.0); BUN/CREATININE RATIO 17; CALCIUM 9.5 MG/DL (8.5-10.1); CARBON DIOXIDE 26 MMOL/L (21-32); CHLORIDE 107 MMOL/L (98-107); CREATININE SERUM 0.64 MG/DL (0.60-1.30); GFR ESTIMATED > 60; GLUCOSE 124 MG/DL (70-105); POTASSIUM 3.9 MMOL/L (3.6-5.0); SODIUM 142 MMOL/L (135-145); TOTAL PROTEIN 6.5 GM/DL (6.4-8.2)
[2018-05-29] MEDS: methylPREDNISolone 40 MG/ML (Solu-MEDROL) VIAL IV SCH ×2 (12:26→17:22)
[2018-05-29] MEDS ORDERED: FUROSEMIDE 40 MG/4 ML INJ (LASIX) IVP NR (12:28)
--- NOTE | 2018-05-29 13:25 | Consultation-Cardiology ---
HPI-Cardiology Cardiology Consultation: Date of Consultation 05/29/18 Date of Admission Attending Physician Omid Kim MD Admitting Physician Conner Henriquez MD Consulting Physician Melinda LLANES MD HPI: Time Seen by Provider: 13:25 Chief Complaint: Shortness of breath This is a 62-year-old lady with extensive cardiac history. She follows Dr. Knapp in [place]. She has history of PCI in the last few years. She also has history of PVCs, atrial fibrillation and is on oral anticoagulation. She denies smoking but has COPD likely due to passive smoking. According to the patient she had an echocardiogram a few months ago but nothing recently. She presented with shortness of breath and difficulty walking. His mild shortness of breath even at rest. Review of Systems-Cardiology Review of Systems Constitutional: As described under HPI; No As described under HPI, No no symptoms reported, No chills, No fever, No lightheadedness Eyes: No As described under HPI, No no symptoms reported, No blindness, No blurred vision, No contact lenses, No drainage, No decreased acuity, No foreign body sensation, No pain, No vision change Ears/Nose/Throat: No As described under HPI, No no symptoms reported, No chronic hearing loss, No ear discharge, No ear pain, No nasal drainage, No ulcerations Respiratory: No no symptoms reported; As described under HPI; No As described under HPI, No cough; orthopnea, shortness of breath; No SOB with excertion Cardiovascular: No no symptoms reported; As described under HPI; No As described under HPI, No chest pain, No edema, No irregular heart rate, No lightheadedness, No palpitations Gastrointestinal: No no symptoms reported, No As described under HPI, No abdomen distended, No abdominal pain, No blood streaked bowels, No constipation , No diarrhea, No nausea, No vomiting, No stool coloration changes Genitourinary: No As described under HPI, No burning, No dysuria, No discharge , No frequency, No flank pain, No hematuria, No urgency : No Musculoskeletal: No no symptoms reported, No As describe under HPI, No back pain, No gout, No joint pain, No joint swelling, No muscle pain, No muscle stiffness, No neck pain, No other Skin: No rash, No skin related problems, No ulcerations Psychiatric/Neurological: No anxiety, No depression, No seizure, No focal weakness, No syncope Hematologic: No bleeding abnormalities [id number] Hx Patient Social History Alcohol Use: Denies Use Recreational Drug Use: No Smoking Status: Never a Smoker Recent Foreign Travel: No Recent Infectious Disease Expo: No Physical Abuse Screen: No Sexual Abuse: No Past Medical History PMH As described under Assessment. Family Medical History Family History: Colon cancer G8 BROTHER Diabetes mellitus G8 BROTHER G8 SISTER FHx: heart disease 19 FATHER 19 MOTHER Myocardial infarction 19 FATHER G8 SISTER Allergies and Home Medications Allergies Coded Allergies: Penicillins (Verified Allergy, Unknown, 03/12/17) Sulfa (Sulfonamide Antibiotics) (Verified Allergy, Unknown, 03/12/17) adhesive tape (Verified Allergy, Unknown, 03/12/17) Home Medications Albuterol Sulfate 2.5 Mg/3 Ml Vial.neb, 2.5 MG NEB Q4H PRN for SHORTNESS OF BREATH, (Reported) Albuterol Sulfate 1 Puff Puff, 2 PUFF INH Q4H PRN for SHORTNESS OF BREATH, ( Reported) Amlodipine Besylate 10 Mg Tablet, 10 MG PO DAILY, (Reported) Apixaban 5 Mg Tablet, 5 MG PO BID, (Reported) Aspirin 81 Mg Tablet.dr, 81 MG PO DAILY, (Reported) Atorvastatin Calcium 40 Mg Tablet, 40 MG PO DAILY, (Reported) Cetirizine HCl 10 Mg Tablet, 10 MG PO DAILY, (Reported) Clopidogrel Bisulfate 75 Mg Tablet, 75 MG PO DAILY, (Reported) Fluticasone Propionate 16 Gm [place].susp, 2 SPRAY NS DAILY, (Reported) Fluticasone/Salmeterol 1 Each Blst.w.dev, 1 PUFF INH BID, (Reported) Ibuprofen 800 Mg Tablet, 800 MG PO TID PRN for PAIN-MILD, (Reported) Lisinopril 10 Mg Tablet, 10 MG PO DAILY, (Reported) Montelukast Sodium 10 Mg Tablet, 10 MG PO DAILY, (Reported) Nitroglycerin 0.4 Mg Tab.subl, 0.4 MG SL UD PRN for CHEST PAIN, (Reported) Omeprazole 20 Mg Capsule.dr, 20 MG PO DAILY, (Reported) LAST FILLED 10-24-17 #90 Prednisone 10 Mg Tab, PO UD, (Reported) TAKE 4 TABS DAILY X 3 DAYS THEN, TAKE 3 TABS DAILY X 3 DAYS THEN, TAKE 2 TABS DAILY X 3 DAYS THEN, TAKE 1 TABS DAILY X 3 DAYS. FILLED 05-24-18 Spironolactone 25 Mg Tablet, 25 MG PO DAILY, (Reported) Zolpidem Tartrate 10 Mg Tablet, 10 MG PO HS PRN for SLEEP, (Reported) Patient Home Medication List Home Medication List Reviewed: Yes Physical Exam-Cardiology Physical Exam Vital Signs/I&O 05/29/18 05/29/18 05/29/18 05/29/18 04:14 06:44 07:00 08:00 Temp 97.0 Pulse 74 82 Resp 20 B/P (MAP) 173/78 (109) Pulse Ox 98 97 O2 Delivery Nasal Cannula Nasal Cannula Nasal Cannula O2 Flow Rate 2.00 2.50 2.00 05/29/18 05/29/18 05/29/18 05/29/18 08:23 10:57 12:00 13:00 Temp 96.0 97.7 Pulse 85 90 94 Resp 20 18 B/P (MAP) 148/72 (97) 169/82 (111) Pulse Ox 97 95 96 O2 Delivery Nasal Cannula Nasal Cannula Nasal Cannula O2 Flow Rate 2.00 2.50 2.00 05/29/18 00:00 Intake Total 770 ml Output Total 1150 ml Balance -380 ml Capillary Refill : Constitutional: appears stated age, AAO x 3, apparent distress, well-developed , well-nourished HEENT: PERRL; No normal ENT inspection, No TMs normal, No pharynx normal, No scleral icterus (R), No scleral icterus (L), No pale conjunctivae (R), No pale conjunctivae (L), No photophobia, No TM abnormal (R), No TM abnormal (L), No pharyngeal erythema, No tonsillar exudate, No other, No discharge, No EOMI; hearing is well preserved; No hard of hearing; oral hygience is good; No ulceration, No xanthelasmas are seen Neck: No non-tender, No full range of motion, No supple, No normal inspection, No carotid bruit, No limited range of motion, No lymphadenopathy (R), No lymphadenopathy (L), No tender lateral, No tender midline, No thyromegaly, No other; carotid pulses are 2 + bilaterally; No with good upstrokes Respiratory: accessory muscle use, chest is bilaterally symmetric, other ( decreased breath sounds bilaterally.) Cardiovascular: irregularly irregular, S1 and S2 Gastrointestinal: No tender, No soft, No round, No distended, No pulsatile mass , No organomegaly, No guarding, No rebound, No tenderness, No hernia, No mass, No audible bowel sounds, No abnormal bowel sounds, No abdominal bruits, No spleenomegaly, No other Rectal: deferred Extremities: No normal range of motion, No non-tender, No normal inspection, No pedal edema, No calf tenderness, No normal capillary refill, No pelvis stable , No calf tenderness, No inflammation, No pedal edema, No slow capillary refill , No swelling, No other, No abrasion, No clubbing, No cyanosis, No ecchymosis, No laceration, No no lower extremity edema bilateral, No significant edema, No tenderness, No wound Neurologic/Psychiatric: no motor/sensory deficits, alert, normal mood/affect, oriented x 3, power is 5/5 both on sides Skin: No normal color, No warm/dry, No cyanosis, No cool, No diaphoresis, No damp, No ecchymosis, No jaundice, No mottled, No pallor, No rash, No tattoos/ piercings, No ulcerations, No rash on exposed areas, No ulcerations on exposed areas, No other Data Review Labs Laboratory Tests 05/29/18 10:50: Blood Gas Puncture Site RT RAD, Blood Gas Patient Temperature 99.9, Arterial Blood pH 7.40, Arterial Blood Partial Pressure CO2 46H, Arterial Blood Partial Pressure O2 95H, Arterial Blood HCO3 27, Arterial Blood Total CO2 28.4, Arterial Blood Oxygen Saturation 98, Arterial Blood Base Excess 2.8H, Doni Test YES-POS, Blood Gas Ventilator Setting NO, Blood Gas Inspired Oxygen 2.5 L 05/29/18 10:55: White Blood Count 17.7H, Red Blood Count 4.92, Hemoglobin 14.2, Hematocrit 43, Mean Corpuscular Volume 87, Mean Corpuscular Hemoglobin 29, Mean Corpuscular Hemoglobin Concent 33, Red Cell Distribution Width 16.7H, Platelet Count 190, Mean Platelet Volume 10.9H, Neutrophils (%) (Auto) 86H, Lymphocytes (%) (Auto) 7L, Monocytes (%) (Auto) 5, Eosinophils (%) (Auto) 3, Basophils (%) (Auto) 0, Neutrophils # (Auto) 15.2H, Lymphocytes # (Auto) 1.2, Monocytes # (Auto) 0.9, Eosinophils # (Auto) 0.5H, Basophils # (Auto) 0.0, Neutrophils % (Manual) 88, Lymphocytes % (Manual) 9, Monocytes % (Manual) 2, Eosinophils % (Manual) 1, Basophils % (Manual) 0, Band Neutrophils 0, Blood Morphology Comment NORMAL, Sodium Level 142, Potassium Level 3.9, Chloride Level 107, Carbon Dioxide Level 26, Anion Gap 9, Blood Urea Nitrogen 11, Creatinine 0.64, Estimat Glomerular Filtration Rate > 60, BUN/Creatinine Ratio 17, Glucose Level 124H, Calcium Level 9.5, Total Bilirubin 1.1H, Aspartate Amino Transf (AST/SGOT) 14, Alanine Aminotransferase (ALT/SGPT) 15, Alkaline Phosphatase 52, Troponin I < 0.30, B- Type Natriuretic Peptide 307.2H, Total Protein 6.5, Albumin 4.0 ECG Impression ECG Initial ECG Rhythm: PVC Initial ECG Impression: Atrial Fibrillation w/RVR A/P-Cardiology Assessment/Admission Diagnosis Shortness of breath, mild respiratory distress, Severe COPD, CAD/PCI, PVCs, Atrial fibrillation, Hypertension, Leukocytosis Plan Shortness of breath, mild respiratory distress, with leukocytosis and neutrophilia. Pneumonia needs to be considered. Severe COPD, likely contribution to severe shortness of breath. I will request an echocardiogram. CAD/PCI, continue Plavix, REI inhibitor. She is not on a statin. She follows with cardiology in [place]. PVCs, not on beta blockers. Atrial fibrillation, she is on Eliquis. She is not on any rate controlling agents. She might not be on beta blockers due to severe COPD. Hypertension, continue amlodipine, lisinopril. Leukocytosis, COPD exacerbation due to bronchitis/pneumonia. Thank you for your consultation. Please call me if you have any questions. Brooke Llanes MD, FACP, FACC, FSCAI, FHRS, CCDS Interventional Cardiology Cardiac Electrophysiology Vascular Medicine and Endovascular Interventions Clinical Quality Measures DVT/VTE Risk/Contraindication: Risk Factor Score Per Nursin RFS Level Per Nursing on Admit: 4+=Very High Contraindications-Pharm: Other *list below* Contraindications-Mechi: Other *list below* Other: WILL NOTIFY DR. KIM OF NEED FOR DVT INTERVENTION TO BE STARTED Melinda LLANES MD May 29, 2018 1:25 pm
--- NOTE | 2018-05-29 14:00 | Physical Therapy Progress Note ---
Therapy Progress Note Attempted PT visit at 1150, pt out of her room and unavailable. Attempted again at 1355, pt declined therapy noting she is exhausted. Pt does seem to be SOA. She is in bed left sidelying with oxygen in place. Visit only. No treatment rendered. ARNALDO BARRIOS PT May 29, 2018 14:00
--- NOTE | 2018-05-29 14:47 | Diagnostic Imaging Report ---
INDICATION: Dyspnea and wheezing. TIME OF EXAM: 12:48 p.m. Correlation is made to prior study from 07/16/2017. The heart is enlarged but stable. No infiltrate or failure is seen. No effusion or pneumothorax is identified. There appears to be some mild central congestion. IMPRESSION: Cardiomegaly and central congestion. No overt failure is detected. Dictated by: Dictated on workstation # [id number]
[2018-05-29] MEDS: ATORVASTATIN 40 MG (LIPITOR) TABLET PO SCH (21:17)
[2018-05-29] MEDS: MONTELUKAST 10 MG (SINGULAIR) TAB PO SCH (21:17)
[2018-05-30] VITALS (17 sets, daily range): BP systolic 128–165; BP diastolic 56–92
[2018-05-30] MEDS: methylPREDNISolone 40 MG/ML (Solu-MEDROL) VIAL IV SCH ×4 (00:18→17:05)
[2018-05-30] MEDS: RT-ALBUTEROL SULF 2.5 MG/3 ML PRE-MIX VIAL IH SCH ×6 (02:20→22:10)
[2018-05-30] MEDS: PANTOPRAZOLE 20 MG TABLET (PROTONIX) PO SCH (05:12)
[2018-05-30 05:59] LABS: BASOPHILS % (AUTO) 0 % (0-10); EOSINOPHILS % (AUTO) 0 % (0-10); HEMATOCRIT 42 % (35-52); HEMOGLOBIN 13.8 G/DL (11.5-16.0); LYMPHOCYTES # (AUTO) 0.8 X 10^3 (1.0-4.0); LYMPHOCYTES % (AUTO) 5 % (12-44); MEAN CORPUSCULAR HEMOGLOBIN 28 PG (25-34); MEAN CORPUSCULAR HGB CONC 33 G/DL (32-36); MEAN CORPUSCULAR VOLUME 86 FL (80-99); MEAN PLATELET VOLUME 10.9 FL (7.4-10.4); MONOCYTES # (AUTO) 0.2 X 10^3 (0.0-1.0); MONOCYTES % (AUTO) 1 % (0-12); NEUTROPHILS # (AUTO) 13.5 X 10^3 (1.8-7.8); NEUTROPHILS % (AUTO) 93 % (42-75); PLATELET COUNT 198 10^3/uL (130-400); RED BLOOD COUNT 4.91 10^6/uL (4.35-5.85); RED CELL DISTRIBUTION WIDTH 16.6 % (10.0-14.5); WHITE BLOOD COUNT 14.5 10^3/uL (4.3-11.0)
[2018-05-30 06:24] LABS: ALANINE AMINOTRANSFERASE 12 U/L (0-55); ALBUMIN 3.9 GM/DL (3.2-4.5); ALKALINE PHOSPHATASE 52 U/L (40-136); BILIRUBIN,TOTAL 0.8 MG/DL (0.1-1.0); BUN/CREATININE RATIO 26; CALCIUM 9.6 MG/DL (8.5-10.1); CARBON DIOXIDE 26 MMOL/L (21-32); CHLORIDE 107 MMOL/L (98-107); CREATININE SERUM 0.76 MG/DL (0.60-1.30); GFR ESTIMATED > 60; GLUCOSE 196 MG/DL (70-105); POTASSIUM 3.7 MMOL/L (3.6-5.0); SODIUM 143 MMOL/L (135-145); TOTAL PROTEIN 6.6 GM/DL (6.4-8.2)
[2018-05-30] MEDS: RT-BUDESONIDE NEBS 0.5 MG/2ML (PULMICORT) AMP INH SCH ×2 (07:06→19:35)
[2018-05-30] MEDS: lisINopril 10 MG (PRINIVIL) TABLET PO SCH (08:51)
[2018-05-30] MEDS: CLOPIDOGREL 75 MG (PLAVIX) TABLET PO SCH (08:51)
[2018-05-30] MEDS: SPIRONOLACTONE 25 MG (ALDACTONE) TAB PO SCH (08:51)
[2018-05-30] MEDS: APIXABAN 5 MG (ELIQUIS) TABLET PO SCH ×2 (08:51→20:30)
[2018-05-30] MEDS: ASPIRIN E.C. 81 MG (ECOTRIN) TAB PO SCH (08:51)
[2018-05-30] MEDS: amLODIPine 10 MG (NORVASC) TAB PO SCH (08:51)
[2018-05-30] MEDS: FLUTICASONE NASAL SPRAY (FLONASE) 16 GM BTL NS SCH (08:52)
--- NOTE | 2018-05-30 09:17 | Progress Note-Hospitalist ---
Subjective HPI/CC On Admission Date Seen by Provider: May 30, 2018 Time Seen by Provider: 08:40 The patient is a 62-year-old white female who was referred here from the [place] emergency room after she presented with what was felt to be strokelike symptoms. The patient reported that she got up yesterday morning feeling weak and this progressed through the day. She has had a previous CVA with some minimum left-sided residua. She stated that this episode also included right- sided symptoms and a progressive generalized weakness. She did not experience any dysphagia or dysphasia. She was previously admitted here in June 2017 with what was precipitated by shortness of breath. She is a lifelong nonsmoker although her was a heavy smoker. She had a past history of coronary artery disease with stenting, hyperlipidemia, hypertension, and irregular heartbeat during that stay she was found to have pericardial effusion. Her workup in [place] did not show anything other than the previous CVA. She was felt to be stable and wanted to be transferred here for specialty care. Subjective/Events-last exam Patient is obviously worsening respiratory status and she does have respiratory insufficiency and mild tachypnea and wheezing audibly. IV steroids have not been successful and she does have a history of recent COPD exacerbation last week when her primary care provider Dr. Henriquez admitted her to [facility] Patient will need BiPAP Cardiology was consulted and he will give an additional dose of Lasix 40 mg IV of which I had given her 1 dose yesterday also. IV steroids will be continued and patient will be evaluated for pneumonia Overall prognosis extremely poor considering how many medical problems this patient has a 62 and morbid obesity complicating the situation and just overall chronic debility Review labs and meds and vitals. Review of Systems General: Malaise Pulmonary: Dyspnea Focused Exam Lactate Level 05/30/18 09:37: Lactic Acid Level 2.43*H Lactic Acid Level Laboratory Tests Test 05/30/18 09:37 Lactic Acid Level 2.43 MMOL/L (0.50-2.00) *H Objective Exam Vital Signs Vital Signs Date Time Temp Pulse Resp B/P (MAP) Pulse Ox O2 Delivery O2 Flow Rate FiO2 05/30/18 10:04 98 30.00 05/30/18 09:45 71 39 05/30/18 07:40 96.3 149/78 (101) Nasal Cannula Capillary Refill : General Appearance: Anxious, Chronically ill, Moderate Distress, Obese Respiratory: Accessory Muscle Use, Crackles, Decreased Breath Sounds, Rales, Respiratory Distress Cardiovascular: No Edema, Tachycardia Neurologic/Psychiatric: Alert, Oriented x3, No Motor/Sensory Deficits, Normal Mood/Affect Results/Procedures Lab Laboratory Tests 05/29/18 10:55 05/30/18 05:43 05/30/18 09:37 Patient resulted labs reviewed. Assessment/Plan Assessment and Plan Assess & Plan/Chief Complaint s/p CVA ischemic type not a tpa candidate AECOPD w/recent hospital stay for same dx per PCP records now worsened and transferring to ICU for biPAP and r/o sepsis and pneumonia Elevated BNP s/p Lasix 40mg IV 2 doses 1 yesterday and 1 today Morbid obesity Plan: ICU transfer IV steroids, Nebs, Pulmicort PT/OT on hold due to critical illness Consult Dr Llanes is appreciated ECHO was reviewed and it was nl Diagnosis/Problems Diagnosis/Problems (1) Respiratory failure Status: Acute Assessment & Plan: Transfer to ICU and place on biPAP Qualifiers: Chronicity: acute on chronic Respiratory failure complication: hypoxia Qualified Codes: J96.21 - Acute and chronic respiratory failure with hypoxia (2) CVA (cerebral vascular accident) Status: Acute Qualifiers: CVA mechanism: unspecified Qualified Codes: I63.9 - Cerebral infarction, unspecified (3) Ataxia Status: Acute (4) Morbid obesity Status: Chronic (5) Debility Status: Chronic (6) Poor prognosis Status: Acute (7) COPD exacerbation Status: Chronic (8) CAD (coronary artery disease) Status: Chronic Qualifiers: Coronary Disease-Associated Artery/Lesion type: [place] artery [place] vs. transplanted heart: [place] heart Associated angina: without angina Qualified Codes: I25.10 - Atherosclerotic heart disease of [place] coronary artery without angina pectoris (9) Diastolic CHF Status: Acute Qualifiers: Heart failure chronicity: acute Qualified Codes: I50.31 - Acute diastolic (congestive) heart failure (10) Essential (primary) hypertension Status: Chronic Clinical Quality Measures DVT/VTE Risk/Contraindication: Risk Factor Score Per Nursin RFS Level Per Nursing on Admit: 4+=Very High Contraindications-Pharm: Other *list below* Contraindications-Mechi: Other *list below* Other: WILL NOTIFY DR. KIM OF NEED FOR DVT INTERVENTION TO BE STARTED MIGEL MCGUIRE DO May 30, 2018 09:17
[2018-05-30] MEDS ORDERED: VANCOMYCIN INJECTION 2,000 MG in NS IV 500 ML 500 ML IV NR (09:30)
[2018-05-30] MEDS ORDERED: FUROSEMIDE 40 MG/4 ML INJ (LASIX) ONE (09:35)
[2018-05-30 09:41] LABS: ABG BASE EXCESS 3.2 MMOL/L (-2.5-2.5); ABG OXYGEN SATURATION 99 % (94-100); ABG PCO2 41 MMHG (35-45); ABG PH 7.43 (7.37-7.43); ABG PO2 99 MMHG (79-93); ABG TCO2 28.6 MMOL/L (21.0-31.0)
[2018-05-30 09:42] LABS: ALLENS TEST YES-POS; INSPIRED O2 3; PATIENT TEMP 97.3; VENTILATOR NO
--- NOTE | 2018-05-30 09:46 | Diagnostic Imaging Report ---
INDICATION: Shortness of breath. Portable chest 9:26 AM FINDINGS: Heart size and pulmonary vascularity are normal. Lungs are clear. There are no effusions or pneumothoraces. IMPRESSION: Negative chest. Dictated by: Dictated on workstation # [id number]
[2018-05-30 09:48] LABS: BASOPHILS % (AUTO) 0 % (0-10); EOSINOPHILS % (AUTO) 0 % (0-10); HEMATOCRIT 42 % (35-52); HEMOGLOBIN 13.6 G/DL (11.5-16.0); LYMPHOCYTES # (AUTO) 0.7 X 10^3 (1.0-4.0); LYMPHOCYTES % (AUTO) 5 % (12-44); MEAN CORPUSCULAR HEMOGLOBIN 28 PG (25-34); MEAN CORPUSCULAR HGB CONC 32 G/DL (32-36); MEAN CORPUSCULAR VOLUME 87 FL (80-99); MEAN PLATELET VOLUME 10.9 FL (7.4-10.4); MONOCYTES # (AUTO) 0.2 X 10^3 (0.0-1.0); MONOCYTES % (AUTO) 2 % (0-12); NEUTROPHILS # (AUTO) 13.2 X 10^3 (1.8-7.8); NEUTROPHILS % (AUTO) 94 % (42-75); PLATELET COUNT 190 10^3/uL (130-400); RED BLOOD COUNT 4.86 10^6/uL (4.35-5.85); RED CELL DISTRIBUTION WIDTH 16.5 % (10.0-14.5); WHITE BLOOD COUNT 14.1 10^3/uL (4.3-11.0)
[2018-05-30 10:01] LABS: BUN/CREATININE RATIO 27; CALCIUM 9.8 MG/DL (8.5-10.1); CARBON DIOXIDE 27 MMOL/L (21-32); CHLORIDE 105 MMOL/L (98-107); CREATININE SERUM 0.86 MG/DL (0.60-1.30); GFR ESTIMATED > 60; GLUCOSE 301 MG/DL (70-105); POTASSIUM 3.9 MMOL/L (3.6-5.0); SODIUM 142 MMOL/L (135-145)
--- NOTE | 2018-05-30 10:02 | Physical Therapy Progress Note ---
Therapy Progress Note Patient is going to ICU and is on the bipap. Will await new orders to continue therapy. AMNA MIX PT May 30, 2018 10:02
--- NOTE | 2018-05-30 13:25 | Cardiology Progress Note ---
Cardiology SOAP Progress Note Subjective: Shortness of breath. Objective: I&O/Vital Signs 05/30/18 05/30/18 05/30/18 05/30/18 10:00 10:04 10:43 11:00 Temp 97.7 Pulse 78 85 Resp 26 B/P (MAP) 155/85 (108) Pulse Ox 98 99 O2 Delivery NIV Bilevel NIV Bilevel O2 Flow Rate 30.00 30.00 FiO2 30 05/30/18 05/30/18 05/30/18 05/30/18 11:00 12:00 13:00 13:00 Pulse 85 80 78 76 Resp 21 22 18 B/P (MAP) 153/90 (111) 131/76 (94) 145/56 (85) Pulse Ox 99 98 98 O2 Delivery NIV Bilevel NIV Bilevel NIV Bilevel O2 Flow Rate 30.00 30.00 30.00 05/30/18 05/30/18 05/30/18 05/30/18 13:33 14:00 15:00 15:30 Pulse 70 82 78 Resp 19 28 29 B/P (MAP) 148/64 (92) 143/70 (94) Pulse Ox 96 96 98 O2 Delivery NIV Bilevel NIV Bilevel NIV Bilevel O2 Flow Rate 30.00 30.00 30.00 FiO2 30 05/30/18 05/30/18 05/30/18 05/30/18 15:30 16:00 16:30 17:00 Temp 97.8 Pulse 72 76 86 Resp 24 23 29 B/P (MAP) 152/92 (112) 147/74 (98) 158/83 (108) Pulse Ox 97 96 96 O2 Delivery NIV Bilevel NIV Bilevel Nasal Cannula Nasal Cannula O2 Flow Rate 30.00 30.00 3.00 3.00 05/30/18 05/30/18 05/30/18 05/30/18 18:00 19:00 19:32 19:35 Pulse 78 89 70 Resp 26 19 B/P (MAP) 149/81 (103) Pulse Ox 96 98 96 O2 Delivery Nasal Cannula NIV Bilevel O2 Flow Rate 3.00 30.00 30.00 05/30/18 05/30/18 19:37 20:00 Temp 97.5 O2 Delivery NIV Bilevel 05/30/18 00:00 Intake Total 2012 ml Output Total 2375 ml Balance -363 ml Weight (Pounds): 214 Weight (Ounces): 8.0 Weight (Calculated Kilograms): 97.504366 Constitutional: appears stated age, AAO x 3, apparent distress, well-developed , well-nourished Respiratory: accessory muscle use, chest is bilaterally symmetric, wheezing, other (decreased breath sounds bilaterally.) Cardiovascular: irregularly irregular, S1 and S2 Gastrointestional: No tender, No soft, No round, No distended, No pulsatile mass, No organomegaly, No guarding, No rebound, No tenderness, No hernia, No mass, No audible bowel sounds, No abnormal bowel sounds, No abdominal bruits, No spleenomegaly, No other Extremities: No normal range of motion, No non-tender, No normal inspection, No pedal edema, No calf tenderness, No normal capillary refill, No pelvis stable , No calf tenderness, No inflammation, No pedal edema, No slow capillary refill , No swelling, No other, No abrasion, No clubbing, No cyanosis, No ecchymosis, No laceration, No no lower extremity edema bilateral, No significant edema, No tenderness, No wound Neurologic/Psychiatric: no motor/sensory deficits, alert, normal mood/affect, oriented x 3, power is 5/5 both on sides Skin: No normal color, No warm/dry, No cyanosis, No cool, No diaphoresis, No damp, No ecchymosis, No jaundice, No mottled, No pallor, No rash, No tattoos/ piercings, No ulcerations, No rash on exposed areas, No ulcerations on exposed areas, No other Results/Procedures: Labs Laboratory Tests 05/30/18 05:43: White Blood Count 14.5H, Red Blood Count 4.91, Hemoglobin 13.8, Hematocrit 42, Mean Corpuscular Volume 86, Mean Corpuscular Hemoglobin 28, Mean Corpuscular Hemoglobin Concent 33, Red Cell Distribution Width 16.6H, Platelet Count 198, Mean Platelet Volume 10.9H, Neutrophils (%) (Auto) 93H, Lymphocytes (%) (Auto) 5L, Monocytes (%) (Auto) 1, Eosinophils (%) (Auto) 0, Basophils (%) (Auto) 0, Neutrophils # (Auto) 13.5H, Lymphocytes # (Auto) 0.8L, Monocytes # (Auto) 0.2, Eosinophils # (Auto) 0.0, Basophils # (Auto) 0.0, Sodium Level 143, Potassium Level 3.7, Chloride Level 107, Carbon Dioxide Level 26, Anion Gap 10, Blood Urea Nitrogen 20H, Creatinine 0.76, Estimat Glomerular Filtration Rate > 60, BUN /Creatinine Ratio 26, Glucose Level 196H, Calcium Level 9.6, Total Bilirubin 0.8 , Aspartate Amino Transf (AST/SGOT) 11, Alanine Aminotransferase (ALT/SGPT) 12, Alkaline Phosphatase 52, Total Protein 6.6, Albumin 3.9 05/30/18 09:35: Blood Gas Puncture Site R RADIAL, Blood Gas Patient Temperature 97.3, Arterial Blood pH 7.43, Arterial Blood Partial Pressure CO2 41, Arterial Blood Partial Pressure O2 99H, Arterial Blood HCO3 27, Arterial Blood Total CO2 28.6, Arterial Blood Oxygen Saturation 99, Arterial Blood Base Excess 3.2H, Doni Test YES-POS, Blood Gas Ventilator Setting NO, Blood Gas Inspired Oxygen 3 05/30/18 09:37: White Blood Count 14.1H, Red Blood Count 4.86, Hemoglobin 13.6, Hematocrit 42, Mean Corpuscular Volume 87, Mean Corpuscular Hemoglobin 28, Mean Corpuscular Hemoglobin Concent 32, Red Cell Distribution Width 16.5H, Platelet Count 190, Mean Platelet Volume 10.9H, Neutrophils (%) (Auto) 94H, Lymphocytes (%) (Auto) 5L, Monocytes (%) (Auto) 2, Eosinophils (%) (Auto) 0, Basophils (%) (Auto) 0, Neutrophils # (Auto) 13.2H, Lymphocytes # (Auto) 0.7L, Monocytes # (Auto) 0.2, Eosinophils # (Auto) 0.0, Basophils # (Auto) 0.0, Sodium Level 142, Potassium Level 3.9, Chloride Level 105, Carbon Dioxide Level 27, Anion Gap 10, Blood Urea Nitrogen 23H, Creatinine 0.86, Estimat Glomerular Filtration Rate > 60, BUN /Creatinine Ratio 27, Glucose Level 301H, Calcium Level 9.8, Lactic Acid Level 2.43*H, B-Type Natriuretic Peptide 749.7H 05/30/18 11:58: Lactic Acid Level 2.56*H A/P: Assessment/Dx: Shortness of breath, mild respiratory distress, Severe COPD, CAD/PCI, PVCs, Atrial fibrillation, Hypertension, Leukocytosis Plan: Shortness of breath, mild respiratory distress, with leukocytosis and neutrophilia. Pneumonia needs to be considered. Severe COPD, likely contribution to severe shortness of breath. Significant wheezing. Echocardiogram showed normal LV function. Low-dose Lasix. CAD/PCI, continue Plavix, REI inhibitor. She is not on a statin. She follows with cardiology in [place]. PVCs, not on beta blockers. Atrial fibrillation, she is on Eliquis. She is not on any rate controlling agents. She might not be on beta blockers due to severe COPD. Hypertension, continue amlodipine, lisinopril. Leukocytosis, COPD exacerbation due to bronchitis/pneumonia. Thank you for your consultation. Please call me if you have any questions. Brooke Llanes MD, FACP, FACC, FSCAI, FHRS, CCDS Interventional Cardiology Cardiac Electrophysiology Vascular Medicine and Endovascular Interventions Focused Exam Lactate Level 05/30/18 09:37: Lactic Acid Level 2.43*H 05/30/18 11:58: Lactic Acid Level 2.56*H Lactic Acid Level Melinda LLANES MD May 30, 2018 13:25
[2018-05-30] MEDS: CEFEPIME INJECTION 2,000 MG in NS (IVPB) 50 ML IV SCH (14:02)
[2018-05-30] MEDS: MONTELUKAST 10 MG (SINGULAIR) TAB PO SCH (20:29)
[2018-05-30] MEDS: ATORVASTATIN 40 MG (LIPITOR) TABLET PO SCH (20:30)
[2018-05-30] MEDS: VANCOMYCIN 1500 MG/NS 500 ML IVPB IV SCH ×2 (20:32)
[2018-05-31] VITALS (26 sets, daily range): BP systolic 100–187; BP diastolic 48–111
[2018-05-31] MEDS: methylPREDNISolone 40 MG/ML (Solu-MEDROL) VIAL IV SCH ×4 (00:23→17:35)
[2018-05-31] MEDS: CEFEPIME INJECTION 2,000 MG in NS (IVPB) 50 ML IV SCH ×2 (00:24→12:41)
[2018-05-31] MEDS: RT-ALBUTEROL SULF 2.5 MG/3 ML PRE-MIX VIAL IH SCH ×5 (02:18→18:36)
[2018-05-31] MEDS ORDERED: NS IV 1000 ML 1,000 ML ONE (02:58)
[2018-05-31] MEDS: NS IV 1000 ML 1,000 ML IV SCH ×2 (03:15→13:57)
[2018-05-31 03:24] LABS: ABG BASE EXCESS 3.1 MMOL/L (-2.5-2.5); ABG OXYGEN SATURATION 99 % (94-100); ABG PCO2 45 MMHG (35-45); ABG PO2 119 MMHG (79-93); ALLENS TEST YES-POS; INSPIRED O2 30%; PATIENT TEMP 97.8; VENTILATOR NO
[2018-05-31 03:41] LABS: BASOPHILS % (AUTO) 0 % (0-10); EOSINOPHILS % (AUTO) 0 % (0-10); HEMATOCRIT 39 % (35-52); HEMOGLOBIN 12.9 G/DL (11.5-16.0); LYMPHOCYTES # (AUTO) 0.5 X 10^3 (1.0-4.0); LYMPHOCYTES % (AUTO) 4 % (12-44); MEAN CORPUSCULAR HEMOGLOBIN 29 PG (25-34); MEAN CORPUSCULAR HGB CONC 33 G/DL (32-36); MEAN CORPUSCULAR VOLUME 88 FL (80-99); MEAN PLATELET VOLUME 11.3 FL (7.4-10.4); MONOCYTES # (AUTO) 0.5 X 10^3 (0.0-1.0); MONOCYTES % (AUTO) 3 % (0-12); NEUTROPHILS % (AUTO) 93 % (42-75); PLATELET COUNT 192 10^3/uL (130-400); RED BLOOD COUNT 4.41 10^6/uL (4.35-5.85); RED CELL DISTRIBUTION WIDTH 16.7 % (10.0-14.5)
[2018-05-31 04:00] LABS: CALCIUM 9.3 MG/DL (8.5-10.1); CREATININE SERUM 0.96 MG/DL (0.60-1.30); MAGNESIUM 2.4 MG/DL (1.8-2.4); PHOSPHORUS 2.8 MG/DL (2.3-4.7); POTASSIUM 3.7 MMOL/L (3.6-5.0)
[2018-05-31] MEDS ORDERED: POTASSIUM CL 10MEQ/50ML IVPB 50 ML IV SCH (06:00)
[2018-05-31] MEDS ORDERED: MAGNESIUM 1 GM/100 ML IVPB 100 ML IV SCH (06:00)
[2018-05-31] MEDS ORDERED: KCL 20 MEQ TAB (K-DUR) PO SCH (06:00)
[2018-05-31] MEDS: inSUlin ASPART (NovoLOG) 1 UNIT/0.01 ML (CHARGE PER UNIT) SQ SCH ×3 (06:03→17:31)
[2018-05-31] MEDS: PANTOPRAZOLE 20 MG TABLET (PROTONIX) PO SCH (06:10)
--- NOTE | 2018-05-31 07:33 | Diagnostic Imaging Report ---
INDICATION: Dyspnea. COMPARISON: 05/30/2018 FINDINGS: Single frontal radiographic view of the chest was obtained and demonstrates persistent moderate cardiomegaly. Pulmonary vasculature is within normal limits. Lungs are clear. There is no focal consolidation, large effusion, nor pneumothorax. Bony structures show no gross acute abnormalities. IMPRESSION: 1. Persistent moderate cardiomegaly, but no evidence of failure or other focal infiltrate. Dictated by: Dictated on workstation # [id number]
[2018-05-31] MEDS: ASPIRIN E.C. 81 MG (ECOTRIN) TAB PO SCH (08:09)
[2018-05-31] MEDS: SPIRONOLACTONE 25 MG (ALDACTONE) TAB PO SCH (08:09)
[2018-05-31] MEDS: amLODIPine 10 MG (NORVASC) TAB PO SCH (08:09)
[2018-05-31] MEDS: CLOPIDOGREL 75 MG (PLAVIX) TABLET PO SCH (08:10)
[2018-05-31] MEDS: VANCOMYCIN 1500 MG/NS 500 ML IVPB IV SCH ×2 (08:10)
[2018-05-31] MEDS: lisINopril 10 MG (PRINIVIL) TABLET PO SCH (08:10)
[2018-05-31] MEDS: APIXABAN 5 MG (ELIQUIS) TABLET PO SCH (08:10)
[2018-05-31] MEDS: RT-BUDESONIDE NEBS 0.5 MG/2ML (PULMICORT) AMP INH SCH (08:14)
[2018-05-31] MEDS: FLUTICASONE NASAL SPRAY (FLONASE) 16 GM BTL NS SCH (09:33)
--- NOTE | 2018-05-31 10:57 | Discharge Summary-Hospitalist ---
Diagnosis/Chief Complaint Date of Admission May 27, 2018 at 23:43 Date of Discharge Admission Diagnosis Generalized weakness. Strokelike symptoms. History of previous CVA Discharge Diagnosis (1) Intubation of airway performed without difficulty Status: Acute Assessment & Plan: Performed by Anesthesia on 05/31/18 at 1130 after failed biPAP (2) Respiratory failure Status: Acute Assessment & Plan: 05/30: Transfer to ICU and place on biPAP 05/31: Failed biPAP, transfer to [place] since I have no pulmonology expertise due to severe COPD (3) CVA (cerebral vascular accident) Status: Acute (4) Ataxia Status: Acute (5) Morbid obesity Status: Chronic (6) Debility Status: Chronic (7) Poor prognosis Status: Acute (8) COPD exacerbation Status: Chronic (9) CAD (coronary artery disease) Status: Chronic (10) Diastolic CHF Status: Acute (11) Essential (primary) hypertension Status: Chronic (12) Lactic acidemia Status: Acute Assessment & Plan: No evidence of sepsis but gave gentle IVF regardless although Lasix given for fluid overload 05/30/18 Discharge Summary Discharge Physical Exam Allergies: Coded Allergies: Penicillins (Verified Allergy, Unknown, 03/12/17) Sulfa (Sulfonamide Antibiotics) (Verified Allergy, Unknown, 03/12/17) adhesive tape (Verified Allergy, Unknown, 03/12/17) Vitals & I&Os Vital Signs Date Time Temp Pulse Resp B/P (MAP) Pulse Ox O2 Delivery O2 Flow Rate FiO2 05/31/18 10:00 89 27 152/90 (110) 98 High Flow N/C 4.00 05/31/18 08:00 98.1 05/31/18 04:00 30 General Appearance: Alert, Oriented X3, Cooperative Respiratory: Other (wheezing and rales and tachypnea and respiratory distress) Cardiovascular: Regular Rate Abdominal: Normal Bowel Sounds Psych/Mental Status: Mood NL Hospital Course Hospital course: Patient had a convoluted hospital course that began when she presented to the emergency room at [place] found to have suspicion for stroke transferred to via [facility] but not a TPA candidate. CT scan of the brain was normal. MRI did show microinfarct consistent with ischemic event so she was on track for inpatient rehabilitation transfer but began having acute exacerbation of COPD and when I conferred with her primary care provider Dr. Hansen it was revealed that she was in the hospital last week for exacerbation of COPD. Patient was started on IV steroids chest x-ray checked no infiltrate noted and cardiology was consulted for elevated BNP. 2 doses of IV Lasix of 40 mg were given on 05/30 and 05/31 and cardiology check echocardiogram showing normal ejection fraction so diastolic heart failure was the diagnosis with mild volume overload. Lactic acid was slightly high but no evidence of any bacterial source of infection so sepsis was ruled out and hyperlactatemia was the diagnosis but gave IV fluids regardless while managing her other issues. Zosyn was placed empirically in case bacterial bronchitis and early pneumonia had occurred and she was transferred to the ICU on 05/30 due to failure of IV steroids and aggressive pulmonary management and she was placed on BiPAP. On morning of 05/31 ABG was reviewed but clinically she was worse with widespread wheezing and rhonchi although CXR was normal but failed BiPAP and due to the severity of her COPD I needed pulmonology expertise which I do not have this weekend [facility] and Dr. Janet Blackmon motorbike courier accepted the transfer graciously and will intubate due to respiratory failure. Labs (last 24 hrs) Laboratory Tests 05/30/18 11:58: Lactic Acid Level 2.56*H 05/31/18 00:14: Glucometer 240H 05/31/18 03:06: White Blood Count 14.0H, Red Blood Count 4.41, Hemoglobin 12.9, Hematocrit 39, Mean Corpuscular Volume 88, Mean Corpuscular Hemoglobin 29, Mean Corpuscular Hemoglobin Concent 33, Red Cell Distribution Width 16.7H, Platelet Count 192, Mean Platelet Volume 11.3H, Neutrophils (%) (Auto) 93H, Lymphocytes (%) (Auto) 4L, Monocytes (%) (Auto) 3, Eosinophils (%) (Auto) 0, Basophils (%) (Auto) 0, Neutrophils # (Auto) 13.0H, Lymphocytes # (Auto) 0.5L, Monocytes # (Auto) 0.5, Eosinophils # (Auto) 0.0, Basophils # (Auto) 0.0, Sodium Level 143, Potassium Level 3.7, Chloride Level 108H, Carbon Dioxide Level 25, Anion Gap 10, Blood Urea Nitrogen 32H, Creatinine 0.96, Estimat Glomerular Filtration Rate 59, BUN/ Creatinine Ratio 33, Glucose Level 250H, Calcium Level 9.3, Phosphorus Level 2.8 , Magnesium Level 2.4 05/31/18 03:20: Blood Gas Puncture Site LT RAD, Blood Gas Patient Temperature 97.8, Arterial Blood pH 7.40, Arterial Blood Partial Pressure CO2 45, Arterial Blood Partial Pressure O2 119H, Arterial Blood HCO3 28H, Arterial Blood Total CO2 29.0, Arterial Blood Oxygen Saturation 99, Arterial Blood Base Excess 3.1H, Doni Test YES-POS, Blood Gas Ventilator Setting NO, Blood Gas Inspired Oxygen 30% Patient resulted labs reviewed. Pending Labs Discussion & Recommendations Discharge Planning: >30 minutes discharge planning Discharge Home Medications: Active Scripts Active Reported Prednisone 10 Mg Tab PO UD TAKE 4 TABS DAILY X 3 DAYS THEN, TAKE 3 TABS DAILY X 3 DAYS THEN, TAKE 2 TABS DAILY X 3 DAYS THEN, TAKE 1 TABS DAILY X 3 DAYS. FILLED 05-24-18 Spironolactone 25 Mg Tablet 25 Mg PO DAILY Atorvastatin Calcium 40 Mg Tablet 40 Mg PO DAILY Cetirizine HCl 10 Mg Tablet 10 Mg PO DAILY Amlodipine Besylate 10 Mg Tablet 10 Mg PO DAILY Lisinopril 10 Mg Tablet 10 Mg PO DAILY Eliquis (Apixaban) 5 Mg Tablet 5 Mg PO BID Aspirin EC (Aspirin) 81 Mg Tablet.dr 81 Mg PO DAILY Zolpidem Tartrate 10 Mg Tablet 10 Mg PO HS PRN Advair 250-50 Diskus (Fluticasone/Salmeterol) 1 Each Blst.w.dev 1 Puff INH BID Ibuprofen 800 Mg Tablet 800 Mg PO TID PRN Fluticasone Propionate 16 Gm [place].susp 2 [place] NS DAILY Proair Hfa (Albuterol Sulfate) 1 Puff Puff 2 Puff INH Q4H PRN Omeprazole 20 Mg Capsule.dr 20 Mg PO DAILY LAST FILLED 10-24-17 #90 Clopidogrel (Clopidogrel Bisulfate) 75 Mg Tablet 75 Mg PO DAILY Albuterol Sulfate 2.5 Mg/3 Ml Vial.neb 2.5 Mg NEB Q4H PRN Nitroglycerin 0.4 Mg Tab.subl 0.4 Mg SL UD PRN Montelukast Sodium 10 Mg Tablet 10 Mg PO DAILY Instructions to patient/family Please see electronic discharge instructions given to patient. Clinical Quality Measures DVT/VTE Risk/Contraindication: Risk Factor Score Per Nursin RFS Level Per Nursing on Admit: 4+=Very High Contraindications-Pharm: Other *list below* Contraindications-Mechi: Other *list below* Other: WILL NOTIFY DR. KIM OF NEED FOR DVT INTERVENTION TO BE STARTED Copy Copies To 1: YIFAN HANSEN MD Problem Qualifiers (1) Respiratory failure: Chronicity: acute on chronic Respiratory failure complication: hypoxia Qualified Codes: J96.21 - Acute and chronic respiratory failure with hypoxia (2) CVA (cerebral vascular accident): CVA mechanism: unspecified Qualified Codes: I63.9 - Cerebral infarction, unspecified (3) CAD (coronary artery disease): Coronary Disease-Associated Artery/Lesion type: [place] artery [place] vs. transplanted heart: [place] heart Associated angina: without angina Qualified Codes: I25.10 - Atherosclerotic heart disease of [place] coronary artery without angina pectoris (4) Diastolic CHF: Heart failure chronicity: acute Qualified Codes: I50.31 - Acute diastolic ( congestive) heart failure MIGEL MCGUIRE DO May 31, 2018 10:57
[2018-05-31] MEDS ORDERED: CEFE1PIG IV (11:33)
[2018-05-31] MEDS ORDERED: VANC1.5P12 IV (11:33)
[2018-05-31] MEDS ORDERED: METH40VI2 IM/IV/SC (11:33)
[2018-05-31] MEDS ORDERED: PROP10VI48 IV (11:34)
[2018-05-31] MEDS ORDERED: proPOfol 200 MG/20 ML (DIPRIVAN) VIAL IV ONE (11:37)
[2018-05-31] MEDS ORDERED: PROPOFOL DRIP (ICU) 100 ML IV ONE (11:59)
--- NOTE | 2018-05-31 12:08 | Progress Note-Standard ---
Standard Progress Note Progress Notes/Assess & Plan Date Seen by Provider: May 31, 2018 Time Seen by Provider: 11:48 Progress/Assessment & Plan consult for intubation. npo status discussed with Dr Sepulveda. pt intubated . 7.5mm tube. 200mg propofol, 100mg succinylcholine, 5mg versed given iv. ASA4. start time 1148 end time 1157. pt tolerated procedure well. Focused Exam Lactate Level 05/30/18 09:37: Lactic Acid Level 2.43*H 05/30/18 11:58: Lactic Acid Level 2.56*H NELL WATERS CRNA May 31, 2018 12:08
[2018-05-31] MEDS: PROPOFOL DRIP (ICU) 100 ML IV SCH ×4 (12:44→19:29)
--- NOTE | 2018-05-31 13:06 | Diagnostic Imaging Report ---
INDICATION: ET tube and OG tube placement. TIME OF EXAM: 12:22 PM Correlation is made with prior study from 05/31/2018. FINDINGS: An NG tube passes below the diaphragm. The endotracheal tube is in good position above the melecio. The heart is enlarged. No infiltrate or failure is detected. There is no effusion or pneumothorax. IMPRESSION: ET tube and OG tube placement, as described. Dictated by: Dictated on workstation # [id number]
[2018-05-31] MEDS ORDERED: MIDAZOLAM 2 MG/2 ML (VERSED) VIAL ONE (13:28)
[2018-05-31] MEDS ORDERED: fentaNYL INJECTION 100 MCG/2 ML AMP ONE (13:28)
[2018-05-31 13:44] LABS: ABG OXYGEN SATURATION 100 % (94-100); ABG PCO2 49 MMHG (35-45); ABG PH 7.35 (7.37-7.43); ABG PO2 165 MMHG (79-93); ABG TCO2 28.7 MMOL/L (21.0-31.0)
[2018-05-31] MEDS ORDERED: MIDAZOLAM 2 MG/2 ML (VERSED) VIAL IM NR (13:45)
[2018-05-31] MEDS ORDERED: fentaNYL INJECTION 100 MCG/2 ML AMP IVP PRN (13:45)
[2018-05-31 13:46] LABS: ALLENS TEST POSITIVE; INSPIRED O2 50% FI02
[2018-05-31 13:47] LABS: PATIENT TEMP 97.1; VENTILATOR YES
[2018-05-31] MEDS ORDERED: MIDAZOLAM 5 MG/5 ML (VERSED) VIAL IJ ONE (13:48)
[2018-05-31] MEDS ORDERED: SUCCINYLCHOLINE INJ 100 MG/5 ML SYR INJ ONE (13:48)
[2018-05-31] MEDS ORDERED: MIDAZOLAM 2 MG/2 ML (VERSED) VIAL IV NR ×2 (14:00→20:00)
--- NOTE | 2018-05-31 14:06 | Physical Therapy Progress Note ---
Therapy Progress Note Evaluation order received. Patient is now intubated and is being transferred to [facility]. No eval at this time. AMNA MIX PT May 31, 2018 14:06
[2018-05-31] MEDS ORDERED: TROUGH ORDER-PHARMACY XX NR (20:00)
[2018-06-13] MEDS ORDERED: HYDR25TA4 PO (14:57)
[2018-06-13] MEDS ORDERED: PRD10T PO (14:57)
[2018-06-13] MEDS ORDERED: BUDE0.5A INH (14:57)
[2018-06-13] MEDS ORDERED: ZINC28PA TOP (14:57)
[2018-06-13] MEDS ORDERED: ISM60TCR PO (14:57)
[2018-06-13] MEDS ORDERED: CARV12.53 PO (14:57)
== END 2018-05-31 20:20 | disposition short-term general hospital (02) | DRG 64 ==
LOC: 4TH 23:43 → ICU 05-30 10:40
PROVIDERS: ADMIT Internal Medicine; ATTEND Internal Medicine
PROC: 5A1935Z Respiratory Ventilation, Less than 24 Consecutive Hours (ICD-10-PCS; principal; 2018-05-31)
DX: I63.9 Cerebral infarction, unspecified (principal); R27.0 Ataxia, unspecified; J96.21 Acute and chronic respiratory failure with hypoxia; I11.0 Hypertensive heart disease with heart failure; I50.33 Acute on chronic diastolic (congestive) heart failure; J44.1 Chronic obstructive pulmonary disease with (acute) exacerbation; I69.354 Hemiplegia and hemiparesis following cerebral infarction affecting left non-dominant side; I48.91 Unspecified atrial fibrillation; I49.3 Ventricular premature depolarization; I25.10 Atherosclerotic heart disease of native coronary artery without angina pectoris; J45.909 Unspecified asthma, uncomplicated; E78.00 Pure hypercholesterolemia, unspecified; R30.0 Dysuria; R32 Unspecified urinary incontinence; K21.9 Gastro-esophageal reflux disease without esophagitis; M54.9 Dorsalgia, unspecified; F41.9 Anxiety disorder, unspecified; F32.9 Major depressive disorder, single episode, unspecified; Z95.5 Presence of coronary angioplasty implant and graft; Z87.440 Personal history of urinary (tract) infections; E66.01 Morbid (severe) obesity due to excess calories; Z68.35 Body mass index [BMI] 35.0-35.9, adult
CPT/HCPCS: 36415; 36600; 70553; 71045; 71046; 80048; 80053; 82805; 82962; 83605; 83735; 83880; 84100; 84478; 84484; 85007; 85025; 85027; 87040; 87070; 87205; 93306; 94002; 94640; 94660; 94664; 94760; 94799

== ENCOUNTER 2018-06-10 14:18 | Inpatient (IN) | payer MEDICAID ==
[~2018-06-10] VITALS: Ht 165.1 cm; Wt 98.9 kg
[~2018-06-10 14:18] MED LIST changes: +APIX5TAB PO; +ASPI-983 PO; +ATOR40TA70 PO; +CEFE1PIG IV; +FLUT1DIS26 INH; +LISI10TA2 PO; +METH40VI2 IM/IV/SC; +PROP10VI48 IV; +SPIR25TA5 PO; +VANC1.5P12 IV; +ZOLP10TA5 PO
[2018-06-10 18:15] VITALS: BP 112/72
[2018-06-10] MEDS ORDERED: RT-ALBUTEROL SULF 2.5 MG/3 ML PRE-MIX VIAL INH PRN (19:00)
[2018-06-10] MEDS ORDERED: ALPRAZolam 0.25 MG (XANAX) TAB PO PRN (19:00)
[2018-06-10] MEDS ORDERED: BENZONATATE 100 MG (TESSALON) CAPSULE PO PRN (19:00)
[2018-06-10] MEDS ORDERED: NITROGLYCERIN 0.4 MG SL TABS BTL 25'S SL PRN (19:00)
--- NOTE | 2018-06-10 19:41 | HISTORY AND PHYSICAL ---
DATE OF SERVICE: CHIEF COMPLAINT: Generalized weakness. HISTORY OF PRESENT ILLNESS: The patient is a 62-year-old female patient of Dr. Henriquez in [facility], who was assessed at [facility] on 05/27/2018 and required intubation due to acute exacerbation of severe COPD, no pulmonology services were available at that time, so the patient was transferred to [facility] on 05/31/2018. The patient had an MRI, which demonstrated a small acute stroke. She was not a TPA candidate. She was followed by hospitalist service and pulmonology at [facility]. She was provided with IV steroids, ventilator support and antibiotics. EKG demonstrated atrial fibrillation with PVCs. She was left with general debilitation from all this therapies were begun and the patient was felt to be appropriate for inpatient rehabilitation unit. Hospitalist impression at [place] was acute on chronic respiratory failure with hypoxia and hypercapnia, acute exacerbation of COPD, small stroke, chronic AFib, hypertension. She was placed on Eliquis for DVT prophylaxis. Currently, the patient requires assistance for ADLs and mobility skills. She had been independent prior to this.Currently she is min assist for gait with FWW and transfers.She is setup for grooming and Mod Independent for eating She is min assist for drssing and toilet transfers. PAST MEDICAL HISTORY: COPD, chronic AFib, coronary artery disease, hypertension. PAST SURGICAL HISTORY: Noncontributory. ALLERGIES: PENICILLIN, SULFA . FAMILY HISTORY: Noncontributory. SOCIAL HISTORY: She lives with family in a house in [place], had been independent prior to this. REVIEW OF SYSTEMS: A 10-point review of systems significant for mild shortness of breath and mild weakness. MEDICATIONS: Tylenol 650 mg p.o. q.6 hours p.r.n. pain or fever, albuterol treatments q.4 hours p.r.n. shortness of breath, Amlodipine 10 mg p.o. daily, Tessalon 100 mg p.o. t.i.d. p.r.n. cough, Pulmicort 0.5 mg inhalation b.i.d., Coreg 25 mg p.o. b.i.d., Humalog sliding scale regimen A, Isosorbide 60 mg p.o. daily, Protonix 40 mg p.o. daily, prednisone 10 mg p.o. daily, nitroglycerin 0.4 mg sublingual p.r.n. chest pain, ProAir HFA 1 puff inhalation q.6 h. p.r.n. shortness of breath, Spiriva 2 puffs q.a.m., Singulair 10 mg p.o. at bedtime, hydrochlorothiazide 25 mg p.o. daily, Flonase 1 spray nasally q.a.m. p.r.n. congestion, Advair Diskus 250/50 one inhalation b.i.d., spironolactone 25 mg p.o. daily, Zyrtec 10 mg p.o. daily, Lipitor 40 mg p.o. at bedtime, Eliquis 5 mg p.o. b.i.d., Xanax 0.25 mg p.o. q.24 h. p.r.n. anxiety, Ambien 10 mg p.o. at bedtime, Plavix 75 mg p.o. daily. PHYSICAL EXAMINATION: GENERAL: Significant for a somewhat obese pleasant female appearing her stated age, sitting up in chair, in no acute distress. VITAL SIGNS: She is afebrile, pulse is 63, respirations 20, blood pressure 112/72, and O2 sat 96% on room air. HEENT: Vision, speech, hearing grossly intact. No oral lesion is noted. NECK: Supple without mass. HEART: Regular rhythm. CHEST: Decreased breath sounds. ABDOMEN: Soft, nontender. Bowel sounds present. EXTREMITIES: Trace edema both ankles, no calf tenderness. MUSCULOSKELETAL: She has functional active range of motion in all 4 limbs. NEUROLOGIC: Sensation is grossly intact to touch. Cognition intact. Strength RT upper limb 4/5 Left UE 4-/5 RT lower limb hip flex 3-/5 knee flex 3/5 Knee extension 4/5 dorsiflexion 4/5 Left Lower limb hip flex 3+/5 knee flex 3/5 Knee extension 4/5 dosrsiflexion and plantarflexion 4/5. IMPRESSION: 1. Rt Cva with Left HP mild1 2. General debilitation secondary to acute exacerbation of chronic obstructive pulmonary disease. 3. Chronic atrial fibrillation, controlled with medication. 4. History of coronary artery disease. 5. Hypertension, controlled with medication. 6. Deep vein thrombosis prophylaxis on Eliquis. 7. Nocturnal resp insufficiency on supplemental 02 at night PLAN: The patient is admitted for a comprehensive program of inpatient stroke rehabilitation with goal of maximizing level of functional independence prior to discharge home with family. The patient will have PT and OT 90 minutes per day each discipline 5 days a week for 7 days with goal of maximizing level of functional independence prior to discharge home with family and home health care. Please see post-admission physician evaluation for details of plan of care. Speech therapy to do cognitive assessment and treat as indicated. Rehabilitation nursing to assist with bowel, bladder, skin care, medication administration and pain management. Respiratory therapy to assist with respiratory therapy administration, respiratory treatment administration, monitoring O2 sats. Social work to assist with discharge planning, community reentry. Follow up with Dr. Sepulveda, who saw her during prior hospitalization and Dr. Thomas as per their schedule. ESTIMATED LENGTH OF STAY: 14 days. PROGNOSIS: Rehab prognosis appears good for goals discharging home with family with home health care, modified independent to supervision for ADLs and mobility skills. DIET: Heart healthy. CODE STATUS: Full code. Job ID: [id number] DocumentID: [id number] Dictated Date: 06/10/2018 19:07:50 [employer] Date: 06/10/2018 19:41:22 Dictated By: MATHEW DENNEY MD MTDD
--- OUTSIDE RECORDS SUMMARY | 2018-06-10 20:07 | XMS REPORT | Clinical Summary ---
Author Author [facility] Organization [facility] Address Unknown Phone Unavailable Care Team Providers Care Unix Administrator Name Role Phone Unverified, Unverified Md PCP Unavailable Raj Hernandez MD Unavailable Source Comments Some departments are not documenting in the electronic medical record. If you do not see the information that you expected, contact Release of Information in the Health Information Management department at [phone] for further assistance in locating additional records.[facility] Allergies Active Allergy Reactions Severity Noted Date Comments Adhesive RASH 07/16/2012 Tape [place] RASH 07/16/2012 Penicillins RASH 07/16/2012 Sulfa (Sulfonamide [...]
[2018-06-10] MEDS: RT-BUDESONIDE NEBS 0.5 MG/2ML (PULMICORT) AMP INH SCH (21:16)
[2018-06-10] MEDS: RT-ADVAIR HFA 115/21 MCG PER PUFF IH SCH (21:16)
[2018-06-10] MEDS: ZOLPIDEM 5 MG (AMBIEN) TAB PO SCH (21:49)
[2018-06-10] MEDS: MONTELUKAST 10 MG (SINGULAIR) TAB PO SCH (21:50)
[2018-06-10] MEDS: amLODIPine 10 MG (NORVASC) TAB PO SCH (21:50)
[2018-06-10] MEDS: APIXABAN 5 MG (ELIQUIS) TABLET PO SCH (21:50)
[2018-06-10] MEDS: CARVEDILOL 12.5 MG (COREG) TABLET PO SCH (21:50)
[2018-06-10] MEDS: ATORVASTATIN 40 MG (LIPITOR) TABLET PO SCH (21:50)
[2018-06-10] MEDS: inSUlin ASPART (NovoLOG) 1 UNIT/0.01 ML (CHARGE PER UNIT) SC SCH (21:59)
[2018-06-11 01:33] VITALS: BP 118/69
[2018-06-11] MEDS: inSUlin ASPART (NovoLOG) 1 UNIT/0.01 ML (CHARGE PER UNIT) SC SCH ×4 (06:06→21:12)
[2018-06-11] MEDS: PANTOPRAZOLE 40 MG (PROTONIX) TAB PO SCH (06:08)
[2018-06-11] MEDS ORDERED: predniSONE 10 MG TAB PO SCH (07:00)
--- NOTE | 2018-06-11 07:50 | PM&R Post Admission Assessment ---
Post Admission Physician Asses Date seen by provider: Jun 11, 2018 Time seen by provider: 07:40 The preadmission screen agrees with the post admission assessment that the patient is a good candidate for inpatient rehabilitation. The patient will have a comprehensive program of inpatient rehabilitation with a goal of maximizing level of functional independence prior to discharge home with [facility]. The patient will have PT/OT ninety minutes per day, each discipline , five days a week for 2 weeks for gait, strengthening, conditioning, balance, ADLs, any patient/family/caregiver training as necessary. Speech therapy to do cognitive assessment and treat as indicated. Rehabilitation nursing to assist with bowel, bladder, skin, wound care, medication administration, pain management. Jewelry Sales Representative to assist with discharge planning, community reentry. SCD's for DVT prophylaxis. She appears to be well motivated to participate in three hours of therapy a day. She should be able to tolerate three hours of therapy a day from a medical standpoint. She should benefit from the three hours of therapy a day. She has a reasonable discharge plan, reasonable discharge rehabilitation goals and a supportive family. She has various comorbidities that need to be closely monitored with medications and treatments adjusted on a daily basis as needed. These include: acute exacerbation of COPD Chronic A FIB HTN HX of CAD DVT prophylaxis on Eliquis Barriers to discharge for this patient who had been independent prior to this are for her to be modified independent to supervision for ADLs and mobility skills prior to discharge home with [facility], so as to lessen the burden of the caregivers. Risks for this patient include: 1. Fall 2. Fracture 3. DVT 4. Pulmonary embolism 5. Recurrent stroke 6. Skin breakdown 7. Contractures 8. Poorly controlled pain 9. Urinary retention 10. UTI 11. Respiratory infection 12. Aspiration 13, Poorly controlled A FIB 14. Angina 15. Poorly controlled HTN Estimated Length of Stay: 14 days Prognosis: Rehab prognosis appears good for goal of discharge home with [facility] modified independent to supervision for ADLs and mobility skills. General: Alert, Oriented X3, Cooperative, No Acute Distress HEENT: Atraumatic, PERRLA, EOMI, Mucous Memb Moist/[place] Neck: Supple, No JVD Lungs: Other (decreased breath sounds) Heart: Regular Rate Abdomen: Normal Bowel Sounds, Soft, No Tenderness Extremities: Other (trace edema both ankles) Skin: Other (Groin rash) Neuro: Other (Generalized weakness/limited endurance) MATHEW DENNEY MD Jun 11, 2018 07:50
[2018-06-11] MEDS: RT-ADVAIR HFA 115/21 MCG PER PUFF IH SCH ×2 (07:56→20:35)
[2018-06-11] MEDS: RT-BUDESONIDE NEBS 0.5 MG/2ML (PULMICORT) AMP INH SCH ×2 (07:56→20:35)
[2018-06-11 08:30] VITALS: BP 131/74
[2018-06-11] MEDS: SPIRONOLACTONE 25 MG (ALDACTONE) TAB PO SCH (08:33)
[2018-06-11] MEDS: HYDROCHLOROTHIAZIDE 25 MG (HCTZ) TAB PO SCH (08:33)
[2018-06-11] MEDS: FLUTICASONE NASAL SPRAY (FLONASE) 16 GM BTL NS SCH (08:33)
[2018-06-11] MEDS: ISOSORBIDE MONONITRATE 60 MG (IMDUR) TAB PO SCH (08:33)
[2018-06-11] MEDS: CARVEDILOL 12.5 MG (COREG) TABLET PO SCH ×2 (08:33→20:51)
[2018-06-11] MEDS: amLODIPine 10 MG (NORVASC) TAB PO SCH ×2 (08:34→20:51)
[2018-06-11] MEDS: LORATADINE (CLARITIN) 10 MG TAB PO SCH (08:34)
[2018-06-11] MEDS: CLOPIDOGREL 75 MG (PLAVIX) TABLET PO SCH (08:34)
[2018-06-11] MEDS: APIXABAN 5 MG (ELIQUIS) TABLET PO SCH ×2 (08:34→20:51)
--- NOTE | 2018-06-11 09:39 | Consultation-Hospitalist ---
HPI History of Present Illness: HPI/Chief Complaint CC: Debility after respiratory failure status HPI: This is a 62yoWF very debilitated patient who I took care of when she was admitted to subacute A to [facility] after transferred from [facility] who then had a respiratory failure episode which required intubation and due to lack of Pulmonology expertise that weekend she was transferred to [facility] after failure on biPAP for AECOPD. Pt has lost 50# since I last saw her and although weak she feels great. She had a fall last night without injury getting up to the commode on her own. Source: patient Exam Limitations: no limitations Date Seen 06/11/18 Attending Physician Yossi Gilman MD PCP Conner Henriquez MD Referring Physician Date of Admission Jun 10, 2018 at 19:17 Home Medications & Allergies Home Medications Reviewed patient Home Medication Reconciliation performed by pharmacy medication reconciliations boiler control technician and/or nursing. Patients Allergies have been reviewed. Allergies Allergies Coded Allergies Penicillins (Verified Allergy, Unknown, 03/12/17) Sulfa (Sulfonamide Antibiotics) (Verified Allergy, Unknown, 03/12/17) adhesive tape (Verified Allergy, Unknown, 03/12/17) Past Tcwhjzi-Gaullm-Sgrpub Hx Past Med/Social Hx: Reviewed Nursing Past Med/Soc Hx, Reviewed and Corrections made Patient Social History Marrital Status: Employed/Student: unemployed Alcohol Use: Denies Use Recreational Drug Use: No Smoking Status: Never a Smoker Physical Abuse Screen: No Sexual Abuse: No Recent Foreign Travel: No Contact w/other who traveled: No Recent Hopitalizations: Yes (LUNG ISSUES-02/2017; dc'd from [facility] on 05/24/18) Recent Infectious Disease Expo: No Immunizations Up To Date Date of Pneumonia Vaccine: Oct 29, 2017 Seasonal Allergies Seasonal Allergies: Yes Past Medical History Respiratory: Asthma, COPD, Sleep Apnea Currently Using CPAP: Yes Currently Using BIPAP: No Cardiac: Coronary Artery Disease, High Cholesterol, Hypertension, Irregular Heartbeat Reproductive: No Sexually Transmitted Disease: No HIV/AIDS: No Genitourinary: Bladder Infection, UTI-Chronic Gastrointestinal: Gastroesophageal Reflux Musculoskeletal: Arthritis, Chronic Back Pain Loss of Vision: Bilateral Hearing Impairment: Denies Psychosocial: Anxiety, Depression History of Blood Disorders: No Adverse Reaction to Blood Pruett: No Family History Colon cancer G8 BROTHER Diabetes mellitus G8 BROTHER G8 SISTER FHx: heart disease 19 FATHER 19 MOTHER Myocardial infarction 19 FATHER G8 SISTER COPD Review of Systems Constitutional: see HPI, weakness EENTM: no symptoms reported Respiratory: no symptoms reported Cardiovascular: no symptoms reported Gastrointestinal: no symptoms reported Genitourinary: no symptoms reported Musculoskeletal: no symptoms reported Skin: no symptoms reported Psychiatric/Neurological: No Symptoms Reported All Other Systems Reviewed Negative Unless Noted: Yes Physical Exam Physical Exam Vital Signs Vital Signs - First Documented 06/10/18 06/10/18 18:15 21:25 Temp 97.1 Pulse 63 Resp 20 B/P (MAP) 112/72 (85) Pulse Ox 96 O2 Delivery Room Air O2 Flow Rate 2.00 Capillary Refill : Height, Weight, BMI Height: 5'5.00" Weight: 218lbs. 0.0oz. 98.184200lk; 36.3 BMI Method: General Appearance: No Apparent Distress, WD/WN, Chronically ill, Obese Eyes: Bilateral Eye Normal Inspection, Bilateral Eye PERRL HEENT: PERRL/EOMI, TMs Normal, Normal ENT Inspection, Pharynx Normal Neck: Full Range of Motion, Normal Inspection, Non Tender, Supple, Carotid Bruit Respiratory: Chest Non Tender, Lungs Clear, Normal Breath Sounds, No Accessory Muscle Use, No Respiratory Distress Cardiovascular: Regular Rate, Rhythm, No Edema, No Gallop, No JVD, No Murmur, Normal Peripheral Pulses Gastrointestinal: Normal Bowel Sounds, No Organomegaly, No Pulsatile Mass, Non Tender, Soft Back: Normal Inspection, No CVA Tenderness, No Vertebral Tenderness Extremity: Normal Capillary Refill, Normal Inspection, Normal Range of Motion, Non Tender, No Calf Tenderness, No Pedal Edema Neurologic/Psychiatric: Alert, Oriented x3, No Motor/Sensory Deficits, Normal Mood/Affect Skin: Normal Color, Warm/Dry Lymphatic: No Adenopathy Results Results/Procedures Labs Laboratory Tests 06/12/18 05:50 Patient resulted labs reviewed. Assessment/Plan Assessment and Plan Assess & Plan/Chief Complaint Debility following respiratory failure Plan: Home meds Check labs PT/OT Diagnosis/Problems Diagnosis/Problems (1) Debility Status: Acute (2) Respiratory failure Status: Resolved Qualifiers: Respiratory failure complication: unspecified whether with hypoxia or hypercapnia (3) CVA (cerebral vascular accident) Status: Chronic Qualifiers: Laterality of affected vessel: unspecified (4) CAD (coronary artery disease) Status: Chronic Qualifiers: Coronary Disease-Associated Artery/Lesion type: [place] artery [place] vs. transplanted heart: [place] heart Associated angina: without angina Qualified Codes: I25.10 - Atherosclerotic heart disease of [place] coronary artery without angina pectoris (5) Morbid obesity Status: Chronic (6) Pulmonary HTN Status: Chronic (7) Obesity hypoventilation syndrome Status: Chronic Clinical Quality Measures DVT/VTE Risk/Contraindication: Risk Factor Score Per Nursin RFS Level Per Nursing on Admit: 4+=Very High MIGEL MCGUIRE DO Jun 11, 2018 09:39
--- NOTE | 2018-06-11 12:58 | Occupational Therapy Eval ---
OT Evaluation-General/PLF Medical Diagnosis Admission Date Jun 10, 2018 at 19:17 Medical Diagnosis: CVA Onset Date: Jun 27, 2018 Therapy Diagnosis Therapy Diagnosis: decreased self care skills Height/Weight Height (Feet): 5 Height (Inches): 5.00 Weight (Pounds): 218 Weight (Ounces): 0.0 Precautions Precautions/Isolations: Fall Prevention, Standard Precautions Safety Interventions: None Medical History Pertinent Medical History: Atrial Fib, CAD, COPD, CVA, GERD, HTN Additional Medical History DVT Current History Pt had acute exacerbation of COPD and had to be intubated. Pt was found to have CVA. Admitted to rehab yesterday from outside hospital. Reviewed History: Yes Social History Home: Single Level Current Living Status: Spouse (Pt states spouse is unable to provide physical assistance) Entry Into Home: Stairs With Railing Steps Into Home: 6 ADL-Prior Level of Function ADL PLOF Comments Pt reports being independent prior to hospitalization. Pt states she did not use any AD for mobility, but held onto furniture for support. DME/Equipment: Grab Bars, Tub/Shower Drive Self: No OT Current Status Subjective Pt agrees to therapy this morning. Pt denies pain, but states her gonzalo area is "chapped." Mental Status/Objective Patient Orientation: Person, Place Current Glasses/Contacts: No Hearing Aids: No Dentures/Partials: No Hand Dominance: Right Upper Extremity ROM Grossly functional Upper Extremity Sensation Intact per pt report Upper Extremity Strength Right UE grossly 4/5 Left UE grossly 4-/5 ADL-Treatment ADL-Current Pt in restroom when therapist arrives. Pt requires CGA to stand from toilet. Pt would like to shower this morning. Transfer to walk in shower with CGA and cues for safety. Doffed gown and socks with SBA while seated. Seated bathing completed with increased time. Pt bathed upper body with SBA. Required minimal assistance for LE bathing. Don pullover shirt with set up. Pt donned underwear and pants with CGA for balance during standing for pant hike. Dons socks with SBA. Grooming tasks completed standing at sink. Pt brushed teeth and combed hair with SBA. Pt has decreased activity tolerance and requires occasional rest breaks during activity. Pt transferred to chair and breakfast arrived. Pt able to open containers and feed self. Pt sitting in chair eating breakfast with needs met and chair alarm in place after session. Functional [place] Measure 0=Not Assessed/NA 4=Minimal Assistance 1=Total Assistance 5=Supervision or Setup 2=Maximal Assistance 6=Modified [place] 3=Moderate Assistance 7=Complete IndependenceIRFPAI Quality Coding Scale 6 Independent with activity with or without an assistive device 5 Patient requires set up or clean up by helper. Patient completes activity by themselves 4 Supervision or touching assist (CGA). [place] provide cues , steadying assist 3 The helper provides less than half the effort to complete the activity 2 The helper provides more than half the effort to complete the activity 1 Dependent. The helper does all the effort to complete an activity 7 Patient refused to complete or attempt activity 9 The patient did not perform the activity before the current illness or injury 88 Not attempted due to Medical conditions or safety concerns Eating (FIM): 6 Eating (QC): 6 Grooming (FIM): 5 Oral Hygiene (QC): 4 Bathing (FIM): 4 Shower/Bathe Self (QC): 4 Upper Body Dressing (FIM): 5 Upper Body Dressing (QC): 4 Lower Body Dressing (FIM): 4 Lower Body Dressing (QC): 4 (CGA) On/Off Footwear (QC): 4 Toilet/Commode Transfer (FIM): 4 Toilet Transfer (QC): 4 Shower Transfer (FIM): 4 Education OT Patient Education: Rehab process Teaching Recipient: Patient Teaching Methods: Discussion Response to Teaching: Verbalize Understanding OT Short Term Goals Short Term Goals Time Frame: Jun 18, 2018 Lower Body Dressing(FIM): 5 Toileting(FIM): 5 Toilet/Commode Transfer(FIM): 5 Additional Short Term Goals: 1-Demonstrate ADL Tasks, 2-Verbalize Understanding , 3-ImproveStrength/Taiwo 1=Demonstrate adherence to instructed precautions during ADL tasks. 2=Patient will verbalize/demonstrate understanding of assistive devices/ modifications for ADL. 3=Patient will improve strength/tolerance for activity to enable patient to perform ADL's. OT Fci Goals Fci Goals Time Frame: Jul 02, 2018 Eating (FIM): 7 Eating (QC): 6 Groomin Oral Hygiene (QC): 6 Bathing(FIM): 6 Shower/Bathe Self (QC): 6 Upper Body Dressing(FIM): 6 Upper Body Dressing (QC): 6 Lower Body Dressing(FIM): 6 Lower Body Dressing (QC): 6 On/Off Footwear (QC): 6 Toileting(FIM): 6 Toileting Hygiene (QC): 6 Toilet/Commode Transfer(FIM): 6 Toilet/Commode Transfer (QC): 6 Shower Transfer(FIM): 6 Additional Goals: 1-Demonstrate ADL Tasks, 2-Verbalize Understanding, 3- ImproveStrength/Taiwo 1=Demonstrate adherence to instructed precautions during ADL tasks. 2=Patient will verbalize/demonstrate understanding of assistive devices/ modifications for ADL. 3=Patient will improve strength/tolerance for activity to enable patient to perform ADL's. Goals established to promote increased independence and allow safe discharge home. OT Education/Plan Problem List/Assessment Assessment: Decreased Activ Tolerance, Decreased UE Strength, Dependent Transfers, Impaired Coordination, Impaired Funct Balance, Impaired I ADL's, Impaired Self-Care Skills Pt to benefit from skilled OT intervention for ADL training, transfers, strengthening, and home safety education to increase functional independence and allow safe discharge. Discharge Recommendations Plan/Recommendations: Continue POC Treatment Plan/Plan of Care Treatment,Training & Education: Yes Patient would benefit from OT for education, treatment and training to promote independence in ADL's, mobility, safety and/or upper extremity function for ADL' s. Plan of Care: ADL Retraining, Functional Mobility, UE Funct Exercise/Act Treatment Duration: Jul 02, 2018 Frequency: Modified Program (IRF) (12/05) Estimated Hrs Per Day: 1.5 hours per day Agreement: Yes Rehab Potential: Good Time/GCodes Start Time: 08:30 Stop Time: 09:30 Total Time Billed (hr/min): 60 Billed Treatment Time 1, visit, EVM(15minutes), ADLx3(45minutes) ANA VERDUZCO OT Jun 11, 2018 12:58
[2018-06-11] MEDS ORDERED: NYSTATIN CREAM (MYCOSTATIN) 30 GM TUBE TP SCH (13:00)
[2018-06-11] MEDS ORDERED: TIOT4MIS5 INH (13:55)
[2018-06-11] MEDS ORDERED: IPRA3AMP31 NEB (13:55)
--- NOTE | 2018-06-11 14:23 | Physical Therapy Evaluation ---
PT Evaluation-General Medical Diagnosis Admission Date Jun 10, 2018 at 19:17 Medical Diagnosis: CVA Onset Date: Jun 27, 2018 Therapy Diagnosis Therapy Diagnosis: impaired mobility, strength, endurance Height/Weight Height (Feet): 5 Height (Inches): 5.00 Weight (Pounds): 218 Weight (Ounces): 0.0 Precautions Precautions/Isolations: Fall Prevention, Standard Precautions Referral Physician: Mukul Reason for Referral: Evaluation/Treatment Medical History Pertinent Medical History: Atrial Fib, CAD, COPD, CVA, GERD, HTN Additional Medical History Past Medical History Respiratory: Asthma Currently Using CPAP: No Currently Using BIPAP: No Cardiac: Coronary Artery Disease, High Cholesterol, Hypertension, Irregular Heartbeat Reproductive: No Sexually Transmitted Disease: No HIV/AIDS: No Genitourinary: Bladder Infection, UTI-Chronic Gastrointestinal: Gastroesophageal Reflux Musculoskeletal: Arthritis, Chronic Back Pain Loss of Vision: Bilateral Hearing Impairment: Denies Psychosocial: Anxiety, Depression History of Blood Disorders: No Adverse Reaction to Blood Pruett: No Reviewed History: Yes Social History Home: Single Level Current Living Status: Spouse (Pt states spouse is unable to provide physical assistance) Entry Into Home: Stairs With Railing PT Steps Into Home: 6 Prior/Core FIM Prior Level of Function Functional [place] Measure 0=Not Assessed/NA 4=Minimal Assistance 1=Total Assistance 5=Supervision or Setup 2=Maximal Assistance 6=Modified [place] 3=Moderate Assistance 7=Complete [place] Bed Mobility: 7 Transfers (B,C,W/C) (FIM): 7 Gait: 7 PT Evaluation-Current Subjective Patient in recliner pre tx, agrees to PT, no complaints of pain. Pt/Family Goals Patient sitting in recliner post tx with nurse call, phone, tray, chair alarm on. Objective Patient Orientation: Person, Place, Situation ROM/Strength ROM Lower Extremities WNL Strenght Lower Extremities right lower extremity (hip flexion 3-/5, knee flexion 3/5, knee extension 4/5, dorsiflexion 4/5, plantarflexion 4/5), left lower extremity (hip flexion 3+/5, knee flexion 3/5, knee extension 4/5, dorsiflexion 4/5, plantarflexion 4/5) Neuromuscular (Tone, Coordination, Reflexes) Patient has good tracking both sides and seems to have normal peripheral vision. Sensory Vision: Functional Hearing: Functional Hand Dominance: Right Sensation Right Lower Extremit: Intact Sensation Left Lower Extremity: Intact Transfers Functional [place] Measure 0=Not Assessed/NA 4=Minimal Assistance 1=Total Assistance 5=Supervision or Setup 2=Maximal Assistance 6=Modified [place] 3=Moderate Assistance 7=Complete IndependenceIRFPAI Quality Coding Scale 6 Independent with activity with or without an assistive device 5 Patient requires set up or clean up by helper. Patient completes activity by themselves 4 Supervision or touching assist (CGA). [place] provide cues , steadying assist 3 The helper provides less than half the effort to complete the activity 2 The helper provides more than half the effort to complete the activity 1 Dependent. The helper does all the effort to complete an activity 7 Patient refused to complete or attempt activity 9 The patient did not perform the activity before the current illness or injury 88 Not attempted due to Medical conditions or safety concerns Transfers (B, C, W/C) (FIM): 4 Scootin Rollin Roll Left to Right (QC): 4 Supine to/from Sit: 4 Sit to/from Stand: 4 bed t/f WC(FIM only if WC use): 4 Sit to Lying (QC): 3 Lying to Sitting/Side of Bed(Q: 3 Sit to Stand (QC): 4 Chair/Trn-ib-Vsdxm Xfer(QC): 4 Car Transfer (QC): 3 Patient performs bed mobility with SBA, supine <-> sit with min assist, sit to stand with CGA, stand pivot transfer with CGA, car transfer with min assist. Patient needs cues for hand placement and safety, will often sit with both hands still on the walker. Gait Does the Patient Walk?: Yes Mode of Locomotion: Walk Anticipated Mode of Locomotion: Walk Gait (FIM): 2 Walk 10 feet (QC): 4 Walk 50 ft with 2 Turns(QC): 4 Walking 10ft/uneven surface-QC: 4 Distance: 60' Gait Level of Assist: 4 Gait Persons Needed: 1 Gait Assistive Device: FWW Comments/Gait Description Patient ambulated 60' with a rolling walker with CGA, including 50' with at least 2 turns of 90 degrees and 10' over an uneven surface. Patient ambulates very slowly, needs occasional standing rest breaks, but steady, no LOB. Wheelchair Training Does the Pt Use a Wheelchair?: No Stairs Stairs (FIM): 1 #of Steps: 1 Level of Assist: 4 1 Step (curb) (QC): 4 Assistive Device: Walker Patient can go up and down 1 step using a rolling walker with CGA and cues for safety and foot placement. Balance Sitting Static: Normal Sitting Dynamic: Normal Standing Static: Good Standing Dynamic: Good Treatment Parallel bars exercises x20 (3-way hip, strait leg hip flexion, heel raises, hamstring curls) Assessment/Needs Patient has impaired mobility, strength, endurance. She fatigues quickly and needs frequent rest breaks. Patient has fallen since her admission by trying to go to the bathroom by herself, fall risk. Rehab Potential: Fair PT Short Term Goals Short Term Goals Time Frame: Jun 18, 2018 Transfers (B,C,W/C) (FIM): 5 Gait (FIM): 2 Gait Distance Comment: 120' Gait Level of Assist: 5 Gait Assistive Device: FWW PT Sales Commissions Analyst Goals Sales Commissions Analyst Goals PT Sales Commissions Analyst Goals Time Frame: Jul 02, 2018 Transfers (B,C,W/C) (FIM): 6 Sit to Lying (QC): 6 Lying-Sitting on Side/Bed(QC): 6 Sit to Stand (QC): 6 Rollin Roll Left to Right (QC): 6 Chair/Kqj-ol-Awktk Xfer(QC): 6 Car Transfer (QC): 6 Gait (FIM): 6 Distance: 200' Walk 10 feet (QC): 6 Walk 10ft-Uneven Surface(QC): 6 Walk 50ft with 2 Turns (QC): 6 Walk 150 ft (QC): 6 Gait Assistive Device: FWW Stairs (FIM): 2 # of Steps: 4 1 Step (curb) (QC): 4 4 Steps (QC): 4 Stairs Level Of Assist: 5 PT Plan Problem List Problem List: Activity Tolerance, Functional Strength, Safety, Balance, Gait, Transfer, Bed Mobility Treatment/Plan Treatment Plan: Continue Plan of Care Treatment Plan: Bed Mobility, Education, Functional Activity Taiwo, Functional Strength, Group Therapy, Gait, Safety, Therapeutic Exercise, Transfers Treatment Duration: Jul 02, 2018 Frequency: Modified Program (IRF) Estimated Hrs Per Day: 1.5 hours per day Patient and/or Family Agrees t: Yes Safety Risks/Education Patient Education: Gait Training, Transfer Techniques, Steps, Correct Positioning, Safety Issues Teaching Recipient: Patient Teaching Methods: Demonstration, Discussion Response to Teaching: Reinforcement Needed Discharge Recommendations Plan Patient will perform bed mobility and transfer training, balance and endurance training, functional strengthening, stair training, gait training, and education , to improve functional mobility and independence at home. Therapy D/C Recommendations: Home w/ Family Support, Senior Living (TCU/NH) Time/GCodes Time In: 1100 Time Out: 1200 Total Billed Treatment Time: 60 Total Billed Treatment 1 visit EVM 30' EX 15' GT 15' AMNA MIX PT Jun 11, 2018 14:23
--- NOTE | 2018-06-11 15:07 | Therapy Group Daily Note ---
Therapy Daily Group Note Other/Notes Each patient participated in group therapy in the common area of rehab. Each patient ambulated or was transported to the area where group therapy was performed and everyone sat in a igiugig. Each patient had to introduce themselves, state where they were from and answer a question involving critical thinking and memory. Patients were then oriented to the rehab process and were able to ask questions and discuss these the other patients. Patient's were also taken through upper and lower extremity seated exercises by PT and OT. Patients finally participated in a self motivation and confidence building activity. All patient's then ambulated or were transported back to their rooms and placed in bed or recliner with nurse call, phone, and tray available and alarm on if applicable. Start Time: 13:00 Stop Time: 14:00 Total Billed Treatment Time: 60 Total Billed Treatment 1 visit GRP 60' AMNA MIX PT Jun 11, 2018 15:07
[2018-06-11] MEDS: predniSONE 10 MG TAB PO SCH (15:08)
--- NOTE | 2018-06-11 15:35 | Occupational Ther Daily Note ---
OT Current Status-Daily Note Subjective Pt resting in bed, agrees to treatment. Pt states she is not having any pain, but states she is uncomfortable secondary to "chapped" gonzalo area. Mental Status/Objective Functional [place] Measure 0=Not Assessed/NA 4=Minimal Assistance 1=Total Assistance 5=Supervision or Setup 2=Maximal Assistance 6=Modified [place] 3=Moderate Assistance 7=Complete [place] ADL-Treatment Functional [place] Measure 0=Not Assessed/NA 4=Minimal Assistance 1=Total Assistance 5=Supervision or Setup 2=Maximal Assistance 6=Modified [place] 3=Moderate Assistance 7=Complete IndependenceIRFPAI Quality Coding Scale 6 Independent with activity with or without an assistive device 5 Patient requires set up or clean up by helper. Patient completes activity by themselves 4 Supervision or touching assist (CGA). [place] provide cues , steadying assist 3 The helper provides less than half the effort to complete the activity 2 The helper provides more than half the effort to complete the activity 1 Dependent. The helper does all the effort to complete an activity 7 Patient refused to complete or attempt activity 9 The patient did not perform the activity before the current illness or injury 88 Not attempted due to Medical conditions or safety concerns Other Treatment Pt agrees to treatment this pm. Pt completed bilateral UE exercises to increase strength needed for ADLs and transfers. Pt performed five UE exercises x10 reps with red theraband. Rest breaks taken between exercises. Pt requires occasional cues for proper exercise technique. Pt resting in bed with needs met after session. Education OT Patient Education: Exercise program Teaching Recipient: Patient Teaching Methods: Demonstration, Discussion Response to Teaching: Return Demonstration, Reinforcement Needed OT Short Term Goals Short Term Goals Time Frame: Jun 18, 2018 Lower Body Dressing(FIM): 5 Toileting(FIM): 5 Transfers (B,C,W/C) (FIM): 5 Toilet/Commode Transfer(FIM): 5 Additional Short Term Goals: 1-Demonstrate ADL Tasks, 2-Verbalize Understanding , 3-ImproveStrength/Taiwo 1=Demonstrate adherence to instructed precautions during ADL tasks. 2=Patient will verbalize/demonstrate understanding of assistive devices/ modifications for ADL. 3=Patient will improve strength/tolerance for activity to enable patient to perform ADL's. OT Salary Manager Goals Nursing Home Goals Time Frame: Jul 02, 2018 Eating (FIM): 7 Eating (QC): 6 Groomin Oral Hygiene (QC): 6 Bathing(FIM): 6 Shower/Bathe Self (QC): 6 Upper Body Dressing(FIM): 6 Upper Body Dressing (QC): 6 Lower Body Dressing(FIM): 6 Lower Body Dressing (QC): 6 On/Off Footwear (QC): 6 Toileting(FIM): 6 Toileting Hygiene (QC): 6 Toilet/Commode Transfer(FIM): 6 Toilet/Commode Transfer (QC): 6 Shower Transfer(FIM): 6 Additional Goals: 1-Demonstrate ADL Tasks, 2-Verbalize Understanding, 3- ImproveStrength/Taiwo 1=Demonstrate adherence to instructed precautions during ADL tasks. 2=Patient will verbalize/demonstrate understanding of assistive devices/ modifications for ADL. 3=Patient will improve strength/tolerance for activity to enable patient to perform ADL's. OT Education/Plan Discharge Recommendations Plan/Recommendations: Continue POC Treatment Plan/Plan of Care Patient would benefit from OT for education, treatment and training to promote independence in ADL's, mobility, safety and/or upper extremity function for ADL' s. Plan of Care: ADL Retraining, Functional Mobility, UE Funct Exercise/Act Treatment Duration: Jul 02, 2018 Frequency: Modified Program (IRF) (12/05) Estimated Hrs Per Day: 1.5 hours per day Agreement: Yes Rehab Potential: Fair Time/GCodes Start Time: 15:00 Stop Time: 15:20 Total Time Billed (hr/min): 20 Billed Treatment Time 1 visit, EX(20minutes) ANA VERDUZCO OT Jun 11, 2018 15:35
--- NOTE | 2018-06-11 16:39 | ST Cognitive Linguistic Eval ---
Speech Evaluation-General Medical Diagnosis CVA Onset Date: Jun 27, 2018 Therapy Diagnosis Therapy Diagnosis: Cognition Precautions Precautions/Isolations: Fall Prevention, Standard Precautions Referral Referring Physician: Mukul Ashby Reason for Referral: Evaluation/Treatment Medical History Pertinent Medical History: Atrial Fib, CAD, COPD, CVA, GERD, HTN Reviewed History: Yes Social History Current Living Status: Spouse (Pt states spouse is unable to provide physical assistance) Speech PLF-Current Status Prior Level of Function Independent Subjective Pt pleasant and cooperative. Pain Numeric Pain Scale: 0-No Pain Language Eval: Auditory Comprehends Simple Yes/No Ques: Functional Follows 1-Step Commands: Functional Follows Complex Directions: Functional Follows General Conversations: Functional Language Eval: Verbal Language Completes Spontaneous Greeting: Functional Word Finding: Functional Requests Basic Needs: Functional Expresses Complex Ideas: Functional Language Evaluation: Reading NT Cognitive Patient Orientation Oriented x 3 Objective Cognitive Domain Attention: WNL Memory: WNL Problem Solving: Functional Objective Results [facility] was administered to assess cognitive-linguistic functioning. Results are as follows: Memory: 3 word recall 3/3: delayed 3/3 and remotely delayed 3/3. Sequencing/organization: 4/4 Problem Solving: Simple - 3/4; Complex 1/2 Speech/language WNL Oral Motor/Speech Production WNL Impression Functional cognitive-linguistic skills Communication/Social Cognition Comprehension: 7 Expression: 7 Social Interaction: 7 Problem Solvin Memory: 7 Speech Patient Assess Expression of Ideas/Wants: Expression (4) Understanding Verbal Content: Understands (4) Brief Interview-Mental Status: Yes Repetition of Three Words: Three (3) Temporal Orientation: Year: Correct (3) Temporal Orientation: Month: Accurate within 5 days(2) Temporal Orientation: Day: Correct (1) Recall : Wear to say "Sock": Yes, no cue required (2) Recall : Color: Yes, no cue required (2) Speech Short Term Goals Short Term Goals Short Term Goals no STGs established as ST not indicated Speech Nursing Home Goals Logistics Planning Engineer Goals No LTGs established as ST not indicated Speech-Plan Patient/Family Goals Patient/Family Goals: to return home Treatment Plan Speech Therapy Treatment Plan: Modify Plan, See Comments (no skilled ST) no skilled ST Frequency: Modified Program (IRF) (0) Estimated Hrs Per Day: Other Rehab Potential: Good Pt/Family Agrees to Plan: Yes Safety Risks/Education Teaching Recipient: Patient Teaching Methods: Discussion Response to Teaching: Verbalize Understanding Time Speech Therapy Time In: 10:30 Speech Therapy Time Out: 11:00 Total Billed Time: 30 Billed Treatment Time 1, SPSNDRUTH Hill Jun 11, 2018 16:39
[2018-06-11 17:09] VITALS: BP 124/67
--- NOTE | 2018-06-11 17:34 | PM & R (SOAP) Progress Note ---
Subjective This was a face to face visit with the patient. Date Seen by Provider: Jun 11, 2018 Time Seen by Provider: 08:05 Subjective/Events-last exam Patient was seen in her room this AM Patient min to mod assist for transfers Review of Systems Pulmonary: Dyspnea Neurological: Weakness Objective Physician Exam Last Set of Vital Signs Vital Signs Date Time Temp Pulse Resp B/P (MAP) Pulse Ox O2 Delivery O2 Flow Rate FiO2 06/11/18 17:09 97.4 72 14 124/67 (86) 95 Room Air 06/10/18 21:25 2.00 Capillary Refill : I&O Intake and Output 06/11/18 00:00 # Voids 1 Daily Weight Change Unsure General: Alert, Oriented X3, Cooperative, No Acute Distress HEENT: Atraumatic, PERRLA, EOMI, Mucous Memb Moist/[place] Neck: Supple, No JVD Lungs: Other (decreased breath sounds) Heart: Regular Rate Abdomen: Normal Bowel Sounds, Soft, No Tenderness Extremities: Other (trace edema both ankles) Skin: Other (Groin rash) Neuro: Other (Generalized weakness/limited endurance) Results Lab Data Laboratory Tests 06/10/18 21:57: Glucometer 241H 06/11/18 05:31: Glucometer 112H 06/11/18 11:04: Glucometer 269H 06/11/18 17:07: Glucometer 129H Assessment/Plan Assessment and Plan Rt Cva with mild left HP General debil secondary to acute exacerbation of COPD Hypoventilation syndrome- 02 dependent at night Chronic A FIB controlled with med HX of CAD HTN controlled with med DVT prophylaxis on Eliquis Subcut Steroid usage Hyperglycemia due to steroids Plan Continue Pt/OT Team Conference tomorrow F/U with DR Sepulveda prn Steroid taper and monitor accucheks Co-Morbidities that are continuing to impact the rehab process: (include details ) MATHEW DENNEY MD Jun 11, 2018 17:34
[2018-06-11] MEDS: ZINC OXIDE 16% OINT (BUTT PASTE) 113 GM TUBE TOP SCH (20:51)
[2018-06-11] MEDS: ZOLPIDEM 5 MG (AMBIEN) TAB PO SCH (20:51)
[2018-06-11] MEDS: ATORVASTATIN 40 MG (LIPITOR) TABLET PO SCH (20:51)
[2018-06-11] MEDS: MONTELUKAST 10 MG (SINGULAIR) TAB PO SCH (20:51)
[2018-06-11] MEDS ORDERED: MICONAZOLE 2% POWDER (DESENEX AF) 90 GM TOP SCH (21:00)
[2018-06-12 06:00] VITALS: BP 127/75
[2018-06-12] MEDS: predniSONE 10 MG TAB PO SCH (06:01)
[2018-06-12] MEDS: PANTOPRAZOLE 40 MG (PROTONIX) TAB PO SCH (06:01)
[2018-06-12 06:03] LABS: BASOPHILS % (AUTO) 0 % (0-10); EOSINOPHILS % (AUTO) 0 % (0-10); HEMATOCRIT 35 % (35-52); HEMOGLOBIN 11.4 G/DL (11.5-16.0); LYMPHOCYTES # (AUTO) 1.3 X 10^3 (1.0-4.0); LYMPHOCYTES % (AUTO) 9 % (12-44); MEAN CORPUSCULAR HEMOGLOBIN 28 PG (25-34); MEAN CORPUSCULAR HGB CONC 32 G/DL (32-36); MEAN CORPUSCULAR VOLUME 87 FL (80-99); MEAN PLATELET VOLUME 11.1 FL (7.4-10.4); MONOCYTES # (AUTO) 0.7 X 10^3 (0.0-1.0); MONOCYTES % (AUTO) 5 % (0-12); NEUTROPHILS # (AUTO) 11.7 X 10^3 (1.8-7.8); NEUTROPHILS % (AUTO) 86 % (42-75); PLATELET COUNT 180 10^3/uL (130-400); RED BLOOD COUNT 4.04 10^6/uL (4.35-5.85); RED CELL DISTRIBUTION WIDTH 16.4 % (10.0-14.5); WHITE BLOOD COUNT 13.7 10^3/uL (4.3-11.0)
[2018-06-12 06:20] LABS: ALANINE AMINOTRANSFERASE 26 U/L (0-55); ALBUMIN 3.2 GM/DL (3.2-4.5); ALKALINE PHOSPHATASE 44 U/L (40-136); BILIRUBIN,TOTAL 0.7 MG/DL (0.1-1.0); BUN/CREATININE RATIO 46; CALCIUM 8.9 MG/DL (8.5-10.1); CARBON DIOXIDE 26 MMOL/L (21-32); CHLORIDE 107 MMOL/L (98-107); CREATININE SERUM 0.72 MG/DL (0.60-1.30); GFR ESTIMATED > 60; GLUCOSE 170 MG/DL (70-105); SODIUM 142 MMOL/L (135-145); TOTAL PROTEIN 4.8 GM/DL (6.4-8.2)
[2018-06-12] MEDS: inSUlin ASPART (NovoLOG) 1 UNIT/0.01 ML (CHARGE PER UNIT) SC SCH ×4 (06:56→21:40)
[2018-06-12] MEDS: ISOSORBIDE MONONITRATE 60 MG (IMDUR) TAB PO SCH (08:06)
[2018-06-12] MEDS: FLUTICASONE NASAL SPRAY (FLONASE) 16 GM BTL NS SCH (08:06)
[2018-06-12] MEDS: HYDROCHLOROTHIAZIDE 25 MG (HCTZ) TAB PO SCH (08:06)
[2018-06-12] MEDS: LORATADINE (CLARITIN) 10 MG TAB PO SCH (08:06)
[2018-06-12] MEDS: CARVEDILOL 12.5 MG (COREG) TABLET PO SCH ×2 (08:06→21:40)
[2018-06-12 08:07] VITALS: BP 141/59
[2018-06-12] MEDS: SPIRONOLACTONE 25 MG (ALDACTONE) TAB PO SCH (08:07)
[2018-06-12] MEDS: CLOPIDOGREL 75 MG (PLAVIX) TABLET PO SCH (08:07)
[2018-06-12] MEDS: amLODIPine 10 MG (NORVASC) TAB PO SCH ×2 (08:07→21:40)
[2018-06-12] MEDS: APIXABAN 5 MG (ELIQUIS) TABLET PO SCH ×2 (08:07→21:40)
[2018-06-12] MEDS: ZINC OXIDE 16% OINT (BUTT PASTE) 113 GM TUBE TOP SCH ×3 (08:11→21:41)
--- NOTE | 2018-06-12 08:55 | Physical Therapy Daily Note ---
PT Daily Note-Current Subjective Pt. state she is already ready to go home. States she probably has lung problems because her smokes near constant in the house but she doesnt smoke. Pain Numeric Pain Scale: 2 Location: Medial Location Body Site: Pelvic (gonzalo area) Pain Description: Burning Mental Status Patient Orientation: Person, Place, Time, Situation Transfers Functional [place] Measure 0=Not Assessed/NA 4=Minimal Assistance 1=Total Assistance 5=Supervision or Setup 2=Maximal Assistance 6=Modified [place] 3=Moderate Assistance 7=Complete IndependenceIRFPAI Quality Coding Scale 6 Independent with activity with or without an assistive device 5 Patient requires set up or clean up by helper. Patient completes activity by themselves 4 Supervision or touching assist (CGA). [place] provide cues , steadying assist 3 The helper provides less than half the effort to complete the activity 2 The helper provides more than half the effort to complete the activity 1 Dependent. The helper does all the effort to complete an activity 7 Patient refused to complete or attempt activity 9 The patient did not perform the activity before the current illness or injury 88 Not attempted due to Medical conditions or safety concerns Transfers (B, C, W/C) (FIM): 6 Scootin Rollin Supine to/from Sit: 6 Sit to/from Stand: 6 Bed to/from Chair: 6 Car Transfer (QC): 5 pt. required much time and several trials at sit to stand and sup to sit but no hands on. education regarding use of hands and safety Gait Training Does the Patient Walk?: Yes Gait (FIM): 4 Distance (FIM): 3=150 ft (x3) Gait Level of Assist: 5 Gait Persons Needed: 1 Gait Assistive Device: FWW natanael slow, has narrow TRINI, needed cuing for alignment and TRINI rebecca for turns Exercises Supine Ex: Bridging, Ankle pumps, Rolling, Heel Slides, Short Arc Quads, Scooting, Straight leg raise, Hip abd/add Supine Reps: 15 Seated Therapy Exercises: Ankle pumps, Sit to stand, Long arc quads, Hip flexion, Hip abd/add Seated Reps: 12 Assessment Current Status: Good Progress moves very slowly, poor energy PT Short Term Goals Short Term Goals Time Frame: Jun 18, 2018 Transfers (B,C,W/C) (FIM): 5 Gait (FIM): 2 Gait Distance Comment: 120' Gait Level of Assist: 5 Gait Assistive Device: FWW PT Correction Goals Correction Goals PT Correction Goals Time Frame: Jul 02, 2018 Transfers (B,C,W/C) (FIM): 6 Sit to Lying (QC): 6 Lying-Sitting on Side/Bed(QC): 6 Sit to Stand (QC): 6 Rollin Roll Left to Right (QC): 6 Chair/Bjc-dr-Dtqaj Xfer(QC): 6 Car Transfer (QC): 6 Gait (FIM): 6 Distance: 200' Walk 10 feet (QC): 6 Walk 10ft-Uneven Surface(QC): 6 Walk 50ft with 2 Turns (QC): 6 Walk 150 ft (QC): 6 Gait Assistive Device: FWW Stairs (FIM): 2 # of Steps: 4 1 Step (curb) (QC): 4 4 Steps (QC): 4 Stairs Level Of Assist: 5 PT Plan Treatment/Plan Treatment Plan: Continue Plan of Care Treatment Plan: Bed Mobility, Education, Functional Activity Taiwo, Functional Strength, Group Therapy, Gait, Safety, Therapeutic Exercise, Transfers Treatment Duration: Jul 02, 2018 Frequency: Modified Program (IRF) Estimated Hrs Per Day: 1.5 hours per day Patient and/or Family Agrees t: Yes Safety Risks/Education Patient Education: Gait Training, Transfer Techniques, Correct Positioning, Disease Process, Safety Issues Teaching Recipient: Patient Teaching Methods: Demonstration, Discussion Response to Teaching: Verbalize Understanding, Return Demonstration, Reinforcement Needed Time/GCodes Time In: 800 Time Out: 900 Total Billed Treatment Time: 60 Total Billed Treatment 1,EX25m,FA15m,GT20m G Codes Necessary: ADRIANNA Alfredo FREELANCE DISPLAYER Jun 12, 2018 08:55
[2018-06-12] MEDS: RT-BUDESONIDE NEBS 0.5 MG/2ML (PULMICORT) AMP INH SCH ×2 (09:22→19:26)
[2018-06-12] MEDS: RT-ADVAIR HFA 115/21 MCG PER PUFF IH SCH ×2 (09:23→19:26)
--- NOTE | 2018-06-12 09:26 | PM & R (SOAP) Progress Note ---
Subjective This was a face to face visit with the patient. Date Seen by Provider: Jun 12, 2018 Time Seen by Provider: 08:10 Subjective/Events-last exam Patient was seen in her room this AM Patient SBA to Modified Independent for transfers Strength and endurnace improving CBC and Chem noted BG 170 WBC 13.7 Discussed steroid taper with Clinical Pharmacist this AM.Appreciate DR Ray orders Objective Physician Exam Last Set of Vital Signs Vital Signs Date Time Temp Pulse Resp B/P (MAP) Pulse Ox O2 Delivery O2 Flow Rate FiO2 06/12/18 06:00 98.3 81 16 127/75 (92) 95 Room Air 06/10/18 21:25 2.00 Capillary Refill : I&O Intake and Output 06/12/18 00:00 Intake Total 1210 ml Balance 1210 ml Intake Oral 1210 ml # Voids 6 # Bowel Movements 1 General: Alert, Oriented X3, Cooperative, No Acute Distress HEENT: Atraumatic, PERRLA, EOMI, Mucous Memb Moist/[place] Neck: Supple, No JVD Lungs: Other (decreased breath sounds) Heart: Regular Rate Abdomen: Normal Bowel Sounds, Soft, No Tenderness Extremities: Other (trace edema both ankles) Skin: Other (Groin rash) Neuro: Other (Generalized weakness/limited endurance) Results Lab Data Laboratory Tests 06/10/18 21:57: Glucometer 241H 06/11/18 05:31: Glucometer 112H 06/11/18 11:04: Glucometer 269H 06/11/18 17:07: Glucometer 129H 06/11/18 20:54: Glucometer 230H 06/12/18 05:50: White Blood Count 13.7H, Red Blood Count 4.04L, Hemoglobin 11.4L, Hematocrit 35 , Mean Corpuscular Volume 87, Mean Corpuscular Hemoglobin 28, Mean Corpuscular Hemoglobin Concent 32, Red Cell Distribution Width 16.4H, Platelet Count 180, Mean Platelet Volume 11.1H, Neutrophils (%) (Auto) 86H, Lymphocytes (%) (Auto) 9L, Monocytes (%) (Auto) 5, Eosinophils (%) (Auto) 0, Basophils (%) (Auto) 0, Neutrophils # (Auto) 11.7H, Lymphocytes # (Auto) 1.3, Monocytes # (Auto) 0.7, Eosinophils # (Auto) 0.0, Basophils # (Auto) 0.0, Sodium Level 142, Potassium Level 4.0, Chloride Level 107, Carbon Dioxide Level 26, Anion Gap 9, Blood Urea Nitrogen 33H, Creatinine 0.72, Estimat Glomerular Filtration Rate > 60, BUN/ Creatinine Ratio 46, Glucose Level 170H, Calcium Level 8.9, Corrected Calcium 9.5, Total Bilirubin 0.7, Aspartate Amino Transf (AST/SGOT) 13, Alanine Aminotransferase (ALT/SGPT) 26, Alkaline Phosphatase 44, Total Protein 4.8L, Albumin 3.2 Assessment/Plan Assessment and Plan RT cva with mild Left HP largely rssolved General debil secondary to acute exacerbation of COPD on steroid taper Hypoventilation syndrome on 02 at night Chronic A FIb controlled with med HX of CAD HTN controlled with med DVT prophylaxis on eliquis Steroid usage Hyperglycemia Plan Continue PT/OT Team Conference later today-see report for full functional update and POC and ELOS Co-Morbidities that are continuing to impact the rehab process: (include details ) MATHEW DENNEY MD Jun 12, 2018 09:26
--- NOTE | 2018-06-12 11:57 | Occupational Ther Daily Note ---
OT Current Status-Daily Note Subjective Pt sitting in chair, agrees to treatment. Pt states she feels a little better than yesterday and is not having any pain. Mental Status/Objective Functional [place] Measure 0=Not Assessed/NA 4=Minimal Assistance 1=Total Assistance 5=Supervision or Setup 2=Maximal Assistance 6=Modified [place] 3=Moderate Assistance 7=Complete [place] ADL-Treatment Pt declined shower today, would like to complete sponge bath. Pt completed seated sponge bath after set up. Don pullover shirt with set up. Pt donned pants with set up. Stood with good balance during pant hike. Pt doffed/donned socks with set up. Gait to restroom with FWW. Toilet transfer and toileting completed with SBA. Washed hands standing at sink without assistance. Pt combed hair with modified independence. Pt moves slowly and requires increased time for ADL tasks. Meal tray arrived at end of session. Pt able to manage containers and feed self without assistance. Pt sitting in chair with needs met after session. Functional [place] Measure 0=Not Assessed/NA 4=Minimal Assistance 1=Total Assistance 5=Supervision or Setup 2=Maximal Assistance 6=Modified [place] 3=Moderate Assistance 7=Complete IndependenceIRFPAI Quality Coding Scale 6 Independent with activity with or without an assistive device 5 Patient requires set up or clean up by helper. Patient completes activity by themselves 4 Supervision or touching assist (CGA). [place] provide cues , steadying assist 3 The helper provides less than half the effort to complete the activity 2 The helper provides more than half the effort to complete the activity 1 Dependent. The helper does all the effort to complete an activity 7 Patient refused to complete or attempt activity 9 The patient did not perform the activity before the current illness or injury 88 Not attempted due to Medical conditions or safety concerns Eating (FIM): 7 Eating (QC): 6 Bathing (FIM): 5 Upper Body (FIM): 5 Upper Body Dressing (QC): 5 Lower Body Dressing (FIM): 5 Lower Body Dressing (QC): 5 Toileting (FIM): 5 Toilet/Commode Transfer (FIM): 5 Other Treatment Gait to therapy gym with FWW, slow pace. Pt completed graded clothespin activity with bilateral hands to increase economics faculty member/pinch strength. Arm bike [id number] to increase overall strength and activity tolerance. Pt completed task with minimal resistance and slow pace. No rest breaks needed. Pt completed resistance pegs activity with bilateral UE with 1# weights in place to increase strength needed for ADLs and transfers. Pt completed task without rest break. Putty activity with bilateral hands to increase strength and fine motor coordination. Pt able to remove small beads from putty with increased time. OT Short Term Goals Short Term Goals Time Frame: Jun 18, 2018 Lower Body Dressing(FIM): 5 Toileting(FIM): 5 Transfers (B,C,W/C) (FIM): 5 Toilet/Commode Transfer(FIM): 5 Additional Short Term Goals: 1-Demonstrate ADL Tasks, 2-Verbalize Understanding , 3-ImproveStrength/Taiwo 1=Demonstrate adherence to instructed precautions during ADL tasks. 2=Patient will verbalize/demonstrate understanding of assistive devices/ modifications for ADL. 3=Patient will improve strength/tolerance for activity to enable patient to perform ADL's. OT Long-Term Goals Long-Term Goals Time Frame: Jul 02, 2018 Eating (FIM): 7 Eating (QC): 6 Groomin Oral Hygiene (QC): 6 Bathing(FIM): 6 Shower/Bathe Self (QC): 6 Upper Body Dressing(FIM): 6 Upper Body Dressing (QC): 6 Lower Body Dressing(FIM): 6 Lower Body Dressing (QC): 6 On/Off Footwear (QC): 6 Toileting(FIM): 6 Toileting Hygiene (QC): 6 Toilet/Commode Transfer(FIM): 6 Toilet/Commode Transfer (QC): 6 Shower Transfer(FIM): 6 Additional Goals: 1-Demonstrate ADL Tasks, 2-Verbalize Understanding, 3- ImproveStrength/Taiwo 1=Demonstrate adherence to instructed precautions during ADL tasks. 2=Patient will verbalize/demonstrate understanding of assistive devices/ modifications for ADL. 3=Patient will improve strength/tolerance for activity to enable patient to perform ADL's. OT Education/Plan Discharge Recommendations Plan/Recommendations: Continue POC Treatment Plan/Plan of Care Patient would benefit from OT for education, treatment and training to promote independence in ADL's, mobility, safety and/or upper extremity function for ADL' s. Plan of Care: ADL Retraining, Functional Mobility, UE Funct Exercise/Act Treatment Duration: Jul 02, 2018 Frequency: Modified Program (IRF) (12/05) Estimated Hrs Per Day: 1.5 hours per day Agreement: Yes Rehab Potential: Fair Time/GCodes Start Time: 10:30 Stop Time: 12:00 Total Time Billed (hr/min): 90 Billed Treatment Time 1 visit, ADLx3(45minutes), EXx3(45minutes) ANA VERDUZCO OT Jun 12, 2018 11:57
--- NOTE | 2018-06-12 13:26 | Physical Therapy Daily Note ---
PT Daily Note-Current Subjective Pt. states she is so tired. Agrees to short walk, wants to toilet and walk then lay down for some exercises. Pt. repeats that she really wants to go home today. This TELEGRAPH OFFICE TELEPHONE CLERK explains that we hope to get her stronger before DC so she will be safer Pain Numeric Pain Scale: 3 Location: Medial Location Body Site: Pelvic (gonzalo area) Pain Description: Burning Mental Status Patient Orientation: Normal For Age Transfers Functional [place] Measure 0=Not Assessed/NA 4=Minimal Assistance 1=Total Assistance 5=Supervision or Setup 2=Maximal Assistance 6=Modified [place] 3=Moderate Assistance 7=Complete IndependenceIRFPAI Quality Coding Scale 6 Independent with activity with or without an assistive device 5 Patient requires set up or clean up by helper. Patient completes activity by themselves 4 Supervision or touching assist (CGA). [place] provide cues , steadying assist 3 The helper provides less than half the effort to complete the activity 2 The helper provides more than half the effort to complete the activity 1 Dependent. The helper does all the effort to complete an activity 7 Patient refused to complete or attempt activity 9 The patient did not perform the activity before the current illness or injury 88 Not attempted due to Medical conditions or safety concerns Transfers (B, C, W/C) (FIM): 5 Scootin Rollin Supine to/from Sit: 5 Sit to/from Stand: 5 Gait Training Gait Assistive Device: FWW 75ft x 2 FWW CGA CGA Exercises Supine Ex: Bridging, Ankle pumps, Quad Set, Rolling, Heel Slides, Short Arc Quads, Straight leg raise, Hip abd/add Supine Reps: 12 Treatments toileted with assist for ointment and tending to gonzalo area by nursing Assessment Current Status: Fair Progress fatigues easily PT Short Term Goals Short Term Goals Time Frame: Jun 18, 2018 Transfers (B,C,W/C) (FIM): 5 Gait (FIM): 2 Gait Distance Comment: 120' Gait Level of Assist: 5 Gait Assistive Device: FWW PT Chcf Goals Employee Adviser Goals PT Employee Adviser Goals Time Frame: Jul 02, 2018 Transfers (B,C,W/C) (FIM): 6 Sit to Lying (QC): 6 Lying-Sitting on Side/Bed(QC): 6 Sit to Stand (QC): 6 Rollin Roll Left to Right (QC): 6 Chair/Qcl-qt-[place] Xfer(QC): 6 Car Transfer (QC): 6 Gait (FIM): 6 Distance: 200' Walk 10 feet (QC): 6 Walk 10ft-Uneven Surface(QC): 6 Walk 50ft with 2 Turns (QC): 6 Walk 150 ft (QC): 6 Gait Assistive Device: FWW Stairs (FIM): 2 # of Steps: 4 1 Step (curb) (QC): 4 4 Steps (QC): 4 Stairs Level Of Assist: 5 PT Plan Treatment/Plan Treatment Plan: Continue Plan of Care Treatment Plan: Bed Mobility, Education, Functional Activity Taiwo, Functional Strength, Group Therapy, Gait, Safety, Therapeutic Exercise, Transfers Treatment Duration: Jul 02, 2018 Frequency: Modified Program (IRF) Estimated Hrs Per Day: 1.5 hours per day Patient and/or Family Agrees t: Yes Safety Risks/Education Patient Education: Gait Training, Transfer Techniques, Correct Positioning, Disease Process, Safety Issues Teaching Recipient: Patient Teaching Methods: Demonstration Response to Teaching: Verbalize Understanding, Return Demonstration, Reinforcement Needed Time/GCodes Time In: 1300 Time Out: 1330 Total Billed Treatment Time: 30 Total Billed Treatment 1,FA20m,EX10m G Codes Necessary: ADRIANNA Alfredo TELEGRAPH OFFICE TELEPHONE CLERK Jun 12, 2018 13:26
--- NOTE | 2018-06-12 15:29 | Occupational Ther Daily Note ---
OT Current Status-Daily Note Subjective Pt supine in bed, agrees to treatment. Mental Status/Objective Functional [place] Measure 0=Not Assessed/NA 4=Minimal Assistance 1=Total Assistance 5=Supervision or Setup 2=Maximal Assistance 6=Modified [place] 3=Moderate Assistance 7=Complete [place] ADL-Treatment Functional [place] Measure 0=Not Assessed/NA 4=Minimal Assistance 1=Total Assistance 5=Supervision or Setup 2=Maximal Assistance 6=Modified [place] 3=Moderate Assistance 7=Complete IndependenceIRFPAI Quality Coding Scale 6 Independent with activity with or without an assistive device 5 Patient requires set up or clean up by helper. Patient completes activity by themselves 4 Supervision or touching assist (CGA). [place] provide cues , steadying assist 3 The helper provides less than half the effort to complete the activity 2 The helper provides more than half the effort to complete the activity 1 Dependent. The helper does all the effort to complete an activity 7 Patient refused to complete or attempt activity 9 The patient did not perform the activity before the current illness or injury 88 Not attempted due to Medical conditions or safety concerns Other Treatment Pt supine to sit with SBA. Sit to stand with supervision. Gait to therapy gym with slow pace and increased time. Pt completed fine motor task with nuts and bolts using bilateral UE with 1# weights in place to increase strength needed for ADLs and transfers. Pt requires increased time for task and one rest break. Bilateral hand precision machinist exercises x20 reps with blue therapy foam to increase precision machinist strength for functional tasks. Pt in therapy gym with PT for treatment after session. OT Short Term Goals Short Term Goals Time Frame: Jun 18, 2018 Lower Body Dressing(FIM): 5 Toileting(FIM): 5 Transfers (B,C,W/C) (FIM): 5 Toilet/Commode Transfer(FIM): 5 Additional Short Term Goals: 1-Demonstrate ADL Tasks, 2-Verbalize Understanding , 3-ImproveStrength/Taiwo 1=Demonstrate adherence to instructed precautions during ADL tasks. 2=Patient will verbalize/demonstrate understanding of assistive devices/ modifications for ADL. 3=Patient will improve strength/tolerance for activity to enable patient to perform ADL's. OT Mcc Goals Mcc Goals Time Frame: Jul 02, 2018 Eating (FIM): 7 Eating (QC): 6 Groomin Oral Hygiene (QC): 6 Bathing(FIM): 6 Shower/Bathe Self (QC): 6 Upper Body Dressing(FIM): 6 Upper Body Dressing (QC): 6 Lower Body Dressing(FIM): 6 Lower Body Dressing (QC): 6 On/Off Footwear (QC): 6 Toileting(FIM): 6 Toileting Hygiene (QC): 6 Toilet/Commode Transfer(FIM): 6 Toilet/Commode Transfer (QC): 6 Shower Transfer(FIM): 6 Additional Goals: 1-Demonstrate ADL Tasks, 2-Verbalize Understanding, 3- ImproveStrength/Taiwo 1=Demonstrate adherence to instructed precautions during ADL tasks. 2=Patient will verbalize/demonstrate understanding of assistive devices/ modifications for ADL. 3=Patient will improve strength/tolerance for activity to enable patient to perform ADL's. OT Education/Plan Discharge Recommendations Plan/Recommendations: Continue POC Treatment Plan/Plan of Care Patient would benefit from OT for education, treatment and training to promote independence in ADL's, mobility, safety and/or upper extremity function for ADL' s. Plan of Care: ADL Retraining, Functional Mobility, UE Funct Exercise/Act Treatment Duration: Jul 02, 2018 Frequency: Modified Program (IRF) (12/05) Estimated Hrs Per Day: 1.5 hours per day Agreement: Yes Rehab Potential: Fair Time/GCodes Start Time: 15:00 Stop Time: 15:25 Total Time Billed (hr/min): 25 Billed Treatment Time 1 visit, EXx2(25minutes) ANA VERDUZCO OT Jun 12, 2018 15:29
[2018-06-12 15:50] VITALS: BP 138/82
--- NOTE | 2018-06-12 15:53 | Physical Therapy Daily Note ---
PT Daily Note-Current Subjective Patient walking in [place] with OT, PT will take over from here. Patient agrees to PT, no complaints of pain. Appearance Patient in recliner post tx with nurse call, phone, tray, chair alarm on. Mental Status Patient Orientation: Person, Place, Situation Transfers Functional [place] Measure 0=Not Assessed/NA 4=Minimal Assistance 1=Total Assistance 5=Supervision or Setup 2=Maximal Assistance 6=Modified [place] 3=Moderate Assistance 7=Complete IndependenceIRFPAI Quality Coding Scale 6 Independent with activity with or without an assistive device 5 Patient requires set up or clean up by helper. Patient completes activity by themselves 4 Supervision or touching assist (CGA). [place] provide cues , steadying assist 3 The helper provides less than half the effort to complete the activity 2 The helper provides more than half the effort to complete the activity 1 Dependent. The helper does all the effort to complete an activity 7 Patient refused to complete or attempt activity 9 The patient did not perform the activity before the current illness or injury 88 Not attempted due to Medical conditions or safety concerns Transfers (B, C, W/C) (FIM): 5 Sit to/from Stand: 5 Bed to/from Chair: 5 Gait Training Gait (FIM): 5 Distance: 150' Gait Level of Assist: 5 Gait Persons Needed: 1 Gait Assistive Device: FWW Slow but steady ambulation. Exercises NuStep Minutes: 15 NuStep Workload: 4 Treatments ambulation, transfers, functional strengthening Assessment Current Status: Fair Progress improving endurance PT Short Term Goals Short Term Goals Time Frame: Jun 18, 2018 Transfers (B,C,W/C) (FIM): 5 Gait (FIM): 2 Gait Distance Comment: 120' Gait Level of Assist: 5 Gait Assistive Device: FWW PT Prison Goals High School Mathematics Teacher Goals PT High School Mathematics Teacher Goals Time Frame: Jul 02, 2018 Transfers (B,C,W/C) (FIM): 6 Sit to Lying (QC): 6 Lying-Sitting on Side/Bed(QC): 6 Sit to Stand (QC): 6 Rollin Roll Left to Right (QC): 6 Chair/Klg-rk-Llrje Xfer(QC): 6 Car Transfer (QC): 6 Gait (FIM): 6 Distance: 200' Walk 10 feet (QC): 6 Walk 10ft-Uneven Surface(QC): 6 Walk 50ft with 2 Turns (QC): 6 Walk 150 ft (QC): 6 Gait Assistive Device: FWW Stairs (FIM): 2 # of Steps: 4 1 Step (curb) (QC): 4 4 Steps (QC): 4 Stairs Level Of Assist: 5 PT Plan Problem List Problem List: Activity Tolerance, Functional Strength, Safety, Balance, Gait, Transfer, Bed Mobility, ROM Treatment/Plan Treatment Plan: Continue Plan of Care Treatment Plan: Bed Mobility, Education, Functional Activity Taiwo, Functional Strength, Group Therapy, Gait, Safety, Therapeutic Exercise, Transfers Treatment Duration: Jul 02, 2018 Frequency: Modified Program (IRF) Estimated Hrs Per Day: 1.5 hours per day Patient and/or Family Agrees t: Yes Safety Risks/Education Patient Education: Gait Training, Transfer Techniques, Correct Positioning, Safety Issues Teaching Recipient: Patient Teaching Methods: Demonstration, Discussion Response to Teaching: Reinforcement Needed Time/GCodes Time In: 1525 Time Out: 1550 Total Billed Treatment Time: 25 Total Billed Treatment 1 visit EX 15' GT 10' AMNA MIX PT Jun 12, 2018 15:53
--- NOTE | 2018-06-12 19:17 | Individualized Plan of Care ---
Individualized Plan of Care Rehab Nursing IPOC Order Admission Date Jun 10, 2018 at 19:17 Current Orders Orders Pt Evaluate/Treat Request (06/10/18 14:23) Request Ot Evaluate & Treat (06/10/18 14:23) Request For Cognitive Services (06/10/18 14:23) Admission Arrival Bed Request (06/10/18 17:57) Heart Healthy (06/10/18 Dinner) Ambulate TID (06/10/18 18:44) Sequential Compression Device , (06/10/18 18:44) Dvt/Vte Risk - Notifiy Physici 08 (06/10/18 18:44) Albuterol Pre-Mix Nebs (Rt) (Proventil (06/10/18 19:00) Svn Small Volume Nebulizer (06/10/18 18:46) Amlodipine Tablet (Norvasc Tablet) (06/10/18 21:00) Benzonatate Capsule (Tessalon Perles) (06/10/18 19:00) Budesonide Inhalation Solution (Pulmicor (06/10/18 21:00) Svn Small Volume Nebulizer (06/10/18 18:46) Carvedilol Tablet (Coreg Tablet) (06/10/18 21:00) Insulin Aspart (Novolog) (Novolog (Charg (06/10/18 21:00) Isosorbide Mononitrate Tablet (Imdur Tab (06/11/18 09:00) Pantoprazole Tablet (Protonix Tablet) (06/11/18 07:00) Prednisone Tablet (Deltasone Tablet) (06/11/18 07:00) Nitroglycerin 0.4 Mg Btl 25's (Nitrostat (06/10/18 19:00) Montelukast Tablet (Singulair Tablet) (06/10/18 21:00) Hydrochlorothiazide Cap/Tablet (Hctz Cap (06/11/18 09:00) Fluticasone Nasal [place] (Flonase Nasal S (06/11/18 09:00) Fluticasone/Salmeterol Common (Advair 11 (06/10/18 20:00) Mdi Treatment (06/10/18 18:46) Spironolactone Tablet (Aldactone Tablet) (06/11/18 09:00) Atorvastatin Tablet (Lipitor) (06/10/18 21:00) Apixaban Tablet (Eliquis Tablet) (06/10/18 21:00) Loratadine Tablet (Claritin Tablet) (06/11/18 09:00) Alprazolam Tablet (Xanax Tablet) (06/10/18 19:00) Zolpidem Tablet (Ambien Tablet) (06/10/18 21:00) Clopidogrel Tablet (Plavix Tablet) (06/11/18 09:00) Rt Request For Service (06/10/18 20:32) Consult Physician (06/11/18 07:36) Admission-Acute Rehab Unit (06/11/18 09:42) Nystatin Cream (Mycostatin Cream) (06/11/18 13:00) Miconazole 2% Powder (Desenex Af 2% Powd (06/11/18 21:00) Cbc With Automated Diff (06/12/18 06:00) Comprehensive Metabolic Panel (06/12/18 06:00) Prednisone Tablet (Deltasone Tablet) (06/11/18 15:02) Patient Visit (06/11/18 ) Therapeutic, Group (06/11/18 ) Pt Eval Moderate Complexity (06/11/18 ) Gait Training, Ea 15 Min (06/11/18 ) Exercise Therap, Ea 15 Min (06/11/18 ) Zinc Oxide 16% Ointment (Butt Paste) (06/11/18 21:00) Patient Visit (06/11/18 ) Speech Sound Lang Comp (06/11/18 ) Patient Visit (06/12/18 ) Exercise Therap, Ea 15 Min (06/12/18 ) Gait Training, Ea 15 Min (06/12/18 ) Functional Activities, Ea 15 (06/12/18 ) Patient Visit (06/12/18 ) Exercise Therap, Ea 15 Min (06/12/18 ) Gait Training, Ea 15 Min (06/12/18 ) Rehab Nursing Orders: Ongoing Assess. of Function Status, Disease Management & Educaiton, DVT Prophylaxis, Fall Prevention, Fluid/Electrolyte/Nutrition Mgmt, Infection Prevention, Medication Management & Education, Management of Risks & Complications, Management of Skin Intergrity, Nutrition Management, Pain Management, Patient/Family Support, Safety Management PT IPOC Problem List: Activity Tolerance, Functional Strength, Safety, Balance, Gait, Transfer, Bed Mobility, ROM Treatment Plan: Continue Plan of Care Bed Mobility, Education, Functional Activity Taiwo, Functional Strength, Group Therapy, Gait, Safety, Therapeutic Exercise, Transfers Treatment Duration: Jul 02, 2018 Frequency: Modified Program (IRF) Estimated Hrs Per Day: 1.5 hours per day OT IPOC Problems: Decreased Activ Tolerance, Decreased UE Strength, Dependent Transfers , Impaired Coordination, Impaired Funct Balance, Impaired I ADL's, Impaired Self -Care Skills OT Treatment, Training and Edu: Yes Plan of Care: ADL Retraining, Functional Mobility, UE Funct Exercise/Act Treatment Duration: Jul 02, 2018 Frequency: Modified Program (IRF) (12/05) Estimated Hrs Per Day: 1.[address] IPOC Speech Therapy Treatment Plan: Modify Plan, See Comments Treatment Duration: Jun 12, 2018 Frequency: Modified Program (IRF) Estimated Hrs Per Day: Other Fire Control Officer/Case Mgmt Fire Control Officer/Case Managemen: Discharge Planning, Patient/Family Counseling Dietitian/Rubber Attacher Dietitian/Rubber Attacher to monitor nutritional status and make changes and/or recommendations as needed and work with speech pathology on dietary upgrades as the occur. Physician IPOC Medical Issues being managed closely and that require the 24 hour availability of a physician: CVA Gait imbalance Acute exacerbation of COPD Hypoventilation syndrome on 02 Obesity Chronic A FIB Hxof CAD HTN controlled with med Steroid taper Hyperglycemia DVT prophylaxis on [facility] 01.1 Etiologic DX cerebral infarction Medical Issues: DVT Prophylaxis, Falls Precautions, Infection Protection, Pain Management, Other (List) (as per above) Brief Synthesis of Preadmission Screen, Post-Admission Evaluation, and Therapy Evaluations: 62 yo female who had been Modified Independent at home in [facility] with 02 at night who was treated at an OSH for a mild stroke in combination with an acute exacerbation of COPD resulting in a decline in Functional [place] referred to IRU here for ongoing care and therapies with gola of return to home with family and [facility] Currently on steroid taper. Medical Prognosis: good Anticipated Length of Stay: 06-19-18 Modified Independent for adls and mobility skills Anticipated d/c Destination: Home with [facility] MATHEW DENNEY MD Jun 12, 2018 19:17
[2018-06-12] MEDS: MONTELUKAST 10 MG (SINGULAIR) TAB PO SCH (21:40)
[2018-06-12] MEDS: ATORVASTATIN 40 MG (LIPITOR) TABLET PO SCH (21:40)
[2018-06-12] MEDS: ZOLPIDEM 5 MG (AMBIEN) TAB PO SCH (21:40)
[2018-06-13] MEDS: inSUlin ASPART (NovoLOG) 1 UNIT/0.01 ML (CHARGE PER UNIT) SC SCH ×2 (05:47→12:02)
[2018-06-13 06:03] VITALS: BP 144/69
[2018-06-13] MEDS: predniSONE 10 MG TAB PO SCH (06:15)
[2018-06-13] MEDS: PANTOPRAZOLE 40 MG (PROTONIX) TAB PO SCH (06:15)
[2018-06-13] MEDS: RT-BUDESONIDE NEBS 0.5 MG/2ML (PULMICORT) AMP INH SCH (07:11)
[2018-06-13] MEDS: RT-ADVAIR HFA 115/21 MCG PER PUFF IH SCH (07:11)
[2018-06-13] MEDS: ISOSORBIDE MONONITRATE 60 MG (IMDUR) TAB PO SCH (08:24)
[2018-06-13] MEDS: LORATADINE (CLARITIN) 10 MG TAB PO SCH (08:24)
[2018-06-13] MEDS: amLODIPine 10 MG (NORVASC) TAB PO SCH (08:24)
[2018-06-13] MEDS: HYDROCHLOROTHIAZIDE 25 MG (HCTZ) TAB PO SCH (08:24)
[2018-06-13] MEDS: APIXABAN 5 MG (ELIQUIS) TABLET PO SCH (08:24)
[2018-06-13] MEDS: CARVEDILOL 12.5 MG (COREG) TABLET PO SCH (08:25)
[2018-06-13] MEDS: SPIRONOLACTONE 25 MG (ALDACTONE) TAB PO SCH (08:25)
[2018-06-13] MEDS: FLUTICASONE NASAL SPRAY (FLONASE) 16 GM BTL NS SCH (08:26)
[2018-06-13] MEDS: ZINC OXIDE 16% OINT (BUTT PASTE) 113 GM TUBE TOP SCH ×2 (08:27→12:05)
[2018-06-13] MEDS: CLOPIDOGREL 75 MG (PLAVIX) TABLET PO SCH (08:28)
--- NOTE | 2018-06-13 08:49 | Progress Note-Hospitalist ---
STEPHANIE MACK MED STUDENT 06/13/18 0849: Subjective HPI/CC On Admission Date Seen by Provider: Jun 13, 2018 Time Seen by Provider: 08:15 CC: Debility after respiratory failure status HPI: This is a 62yoWF very debilitated patient who I took care of when she was admitted to subacute CVA to [facility] after transferred from [facility] who then had a respiratory failure episode which required intubation and due to lack of Pulmonology expertise that weekend she was transferred to [facility] after failure on biPAP for AECOPD. Pt has lost 50# since I last saw her and although weak she feels great. She had a fall last night without injury getting up to the commode on her own. Subjective/Events-last exam Pt appears well No dyspnea Pt is anxious to get home- reports that she has family members in the medical field and feels that they can help her recover at home BM+ Plan is to continue PT/OT Objective Exam Vital Signs Vital Signs Date Time Temp Pulse Resp B/P (MAP) Pulse Ox O2 Delivery O2 Flow Rate FiO2 06/13/18 07:12 97 Nasal Cannula 2.00 06/13/18 06:03 97.7 65 18 144/69 (94) Capillary Refill : General Appearance: Chronically ill, Obese Results/Procedures Lab Patient resulted labs reviewed. Assessment/Plan Assessment and Plan Assess & Plan/Chief Complaint Assessment: debility following respiratory failure Plan: Home meds Monitor labs PT/OT Diagnosis/Problems Diagnosis/Problems (1) Debility Status: Chronic (2) COPD exacerbation Status: Chronic (3) Morbid obesity Status: Chronic (4) Debility Status: Acute (5) Respiratory failure Status: Resolved Qualifiers: Respiratory failure complication: unspecified whether with hypoxia or hypercapnia Clinical Quality Measures DVT/VTE Risk/Contraindication: Risk Factor Score Per Nursin RFS Level Per Nursing on Admit: 4+=Very High MIGEL MCGUIRE DO 06/13/182117: Subjective Subjective/Events-last exam Pt appears to be doing very well and wants to go home Objective Exam General Appearance: No Apparent Distress, WD/WN, Chronically ill, Obese Respiratory: Lungs Clear, Normal Breath Sounds Cardiovascular: Regular Rate, Rhythm, No Edema Neurologic/Psychiatric: Alert, Oriented x3, No Motor/Sensory Deficits, Depressed Affect Assessment/Plan Assessment and Plan Assess & Plan/Chief Complaint STEPHANIE March MED STUDENT Jun 13, 2018 08:49 MIGEL MCGUIRE DO Jun 13, 2018 21:18
--- NOTE | 2018-06-13 09:14 | PM & R (SOAP) Progress Note ---
Subjective This was a face to face visit with the patient. Date Seen by Provider: Jun 13, 2018 Time Seen by Provider: 07:55 Subjective/Events-last exam Patient was seen in her room this AM Patient SBA for transfers Endurance improving Current labs noted Objective Physician Exam Last Set of Vital Signs Vital Signs Date Time Temp Pulse Resp B/P (MAP) Pulse Ox O2 Delivery O2 Flow Rate FiO2 06/13/18 07:12 97 Nasal Cannula 2.00 06/13/18 06:03 97.7 65 18 144/69 (94) Capillary Refill : I&O Intake and Output 06/13/18 00:00 Intake Total 1550 ml Balance 1550 ml Intake Oral 1550 ml # Voids 10 # Bowel Movements 1 General: Alert, Oriented X3, Cooperative, No Acute Distress HEENT: Atraumatic, PERRLA, EOMI, Mucous Memb Moist/[place] Neck: Supple, No JVD Lungs: Other (decreased breath sounds) Heart: Regular Rate Abdomen: Normal Bowel Sounds, Soft, No Tenderness Extremities: Other (trace edema both ankles) Skin: Other (Groin rash) Neuro: Other (Generalized weakness/limited endurance) Results Lab Data Laboratory Tests 06/10/18 21:57: Glucometer 241H 06/11/18 05:31: Glucometer 112H 06/11/18 11:04: Glucometer 269H 06/11/18 17:07: Glucometer 129H 06/11/18 20:54: Glucometer 230H 06/12/18 05:50: White Blood Count 13.7H, Red Blood Count 4.04L, Hemoglobin 11.4L, Hematocrit 35 , Mean Corpuscular Volume 87, Mean Corpuscular Hemoglobin 28, Mean Corpuscular Hemoglobin Concent 32, Red Cell Distribution Width 16.4H, Platelet Count 180, Mean Platelet Volume 11.1H, Neutrophils (%) (Auto) 86H, Lymphocytes (%) (Auto) 9L, Monocytes (%) (Auto) 5, Eosinophils (%) (Auto) 0, Basophils (%) (Auto) 0, Neutrophils # (Auto) 11.7H, Lymphocytes # (Auto) 1.3, Monocytes # (Auto) 0.7, Eosinophils # (Auto) 0.0, Basophils # (Auto) 0.0, Sodium Level 142, Potassium Level 4.0, Chloride Level 107, Carbon Dioxide Level 26, Anion Gap 9, Blood Urea Nitrogen 33H, Creatinine 0.72, Estimat Glomerular Filtration Rate > 60, BUN/ Creatinine Ratio 46, Glucose Level 170H, Calcium Level 8.9, Corrected Calcium 9.5, Total Bilirubin 0.7, Aspartate Amino Transf (AST/SGOT) 13, Alanine Aminotransferase (ALT/SGPT) 26, Alkaline Phosphatase 44, Total Protein 4.8L, Albumin 3.2 06/12/18 11:05: Glucometer 276H 06/12/18 15:53: Glucometer 177H 06/12/18 20:49: Glucometer 264H 06/13/18 05:36: Glucometer 91 Assessment/Plan Assessment and Plan Rt cva with mild left HP improved general debil secondary to acute exacerbation of COPD improving on steroid taper Hypoventilation syndrome on 02 at night Chronic A FIB controlled with med HX of CAD HTN controlled with med DVT prophylaxis on eliquis Steroid usage Hyperglycemia Plan Continue Pt/OT Team Conference held yesterday-see report for full functional update and POC Discharge set tentatively for next week 06-19-18 Co-Morbidities that are continuing to impact the rehab process: (include details ) MATHEW DENNEY MD Jun 13, 2018 09:14
--- NOTE | 2018-06-13 12:10 | Physical Therapy Daily Note ---
PT Daily Note-Current Subjective Pt sitting in chair in Therapy Gym after finishing OT as CAR PICK UP DRIVER arrives. Pt agrees to PT. Pain Location: No Pain Reported Mental Status Patient Orientation: Person, Place, Situation Transfers Functional [place] Measure 0=Not Assessed/NA 4=Minimal Assistance 1=Total Assistance 5=Supervision or Setup 2=Maximal Assistance 6=Modified [place] 3=Moderate Assistance 7=Complete IndependenceIRFPAI Quality Coding Scale 6 Independent with activity with or without an assistive device 5 Patient requires set up or clean up by helper. Patient completes activity by themselves 4 Supervision or touching assist (CGA). [place] provide cues , steadying assist 3 The helper provides less than half the effort to complete the activity 2 The helper provides more than half the effort to complete the activity 1 Dependent. The helper does all the effort to complete an activity 7 Patient refused to complete or attempt activity 9 The patient did not perform the activity before the current illness or injury 88 Not attempted due to Medical conditions or safety concerns Scootin Sit to/from Stand: 5 Sit to Stand (QC): 5 Weight Bearing Right Lower Extremity: Right Weight Bearing/Tolerated Left Lower Extremity: Left Weight Bearing/Tolerated Gait Training Does the Patient Walk?: Yes Distance (FIM): 3=150 ft Distance: 150' Walk 10 feet (QC): 5 Walk 50 ft with 2 Turns(QC): 5 Walk 150 ft (QC): 5 Gait Level of Assist: 5 Gait Persons Needed: 1 Gait Assistive Device: FWW Pt has slow kevin and WB more through UE so CAR PICK UP DRIVER encourages WB more through LE. PT fatigues and needs rest break during ambulation. Wheelchair Training Does the Pt Use a Wheelchair?: No Exercises Seated Therapy Exercises: Ankle pumps, Long arc quads, Hip flexion, Kicking activity NuStep Minutes: 10 NuStep Workload: 4 Treatments Pt completes Seated Ex in chair then takes short rest before transferring to Step. Pt uses NuStep for 10m at WL 4 then takes another short rest. Pt ambulates in hallway before returning to room. CAR PICK UP DRIVER asks if pt needs to use restroom but pt declines. Pt transfers to recliner to rest. CAR PICK UP DRIVER assists pt with ordering lunch at end of tx. Pt has all needs met, including call light next to pt. Assessment Current Status: Good Progress Pt is quiet/soft spoken and doesn't vocalize much unless asked question. Pt is tired and needs occasional rest break. Pt wants to return home soon. PT Short Term Goals Short Term Goals Time Frame: Jun 18, 2018 Transfers (B,C,W/C) (FIM): 5 Gait (FIM): 2 Gait Distance Comment: 120' Gait Level of Assist: 5 Gait Assistive Device: FWW PT Residential Goals Residential Goals PT Residential Goals Time Frame: Jul 02, 2018 Transfers (B,C,W/C) (FIM): 6 Sit to Lying (QC): 6 Lying-Sitting on Side/Bed(QC): 6 Sit to Stand (QC): 6 Rollin Roll Left to Right (QC): 6 Chair/Gln-tr-Reztz Xfer(QC): 6 Car Transfer (QC): 6 Gait (FIM): 6 Distance: 200' Walk 10 feet (QC): 6 Walk 10ft-Uneven Surface(QC): 6 Walk 50ft with 2 Turns (QC): 6 Walk 150 ft (QC): 6 Gait Assistive Device: FWW Stairs (FIM): 2 # of Steps: 4 1 Step (curb) (QC): 4 4 Steps (QC): 4 Stairs Level Of Assist: 5 PT Plan Problem List Problem List: Activity Tolerance, Safety, Gait Treatment/Plan Treatment Plan: Continue Plan of Care Treatment Plan: Bed Mobility, Education, Functional Activity Taiwo, Functional Strength, Group Therapy, Gait, Safety, Therapeutic Exercise, Transfers Treatment Duration: Jul 02, 2018 Frequency: Modified Program (IRF) Estimated Hrs Per Day: 1.5 hours per day Patient and/or Family Agrees t: Yes Safety Risks/Education Patient Education: Gait Training, Transfer Techniques, Correct Positioning, Safety Issues Teaching Recipient: Patient Teaching Methods: Discussion Response to Teaching: Verbalize Understanding Time/GCodes Time In: 1045 Time Out: 1145 Total Billed Treatment Time: 60 Total Billed Treatment 1, GT (15m), FA (15m) & EX x2 (30m) G Codes Necessary: BROCK Helms CAR PICK UP DRIVER Jun 13, 2018 12:10
--- NOTE | 2018-06-13 12:18 | Occupational Ther Daily Note ---
OT Current Status-Daily Note Subjective Pt. reports no pain but reports that she wants to go home. Appearance Pt. up in chair. Pt. upset when OT comes into room, stating that she wants to go home. OT questioned pt. regarding needs for home, or support. Pt. states that she has two nurse aides in the family that will take care of her. Pt. states that her family really wants her home, and that they don't want her to stay. OT asked pt. if she would like for social media manager to come and talk with her about discharge. Pt. does not verbalize that she wants this. Dr. comes to therapy session and pt. reports no issues with her. Will speak with social media manager regarding this conversation. Mental Status/Objective Patient Orientation: Person, Place Functional [place] Measure 0=Not Assessed/NA 4=Minimal Assistance 1=Total Assistance 5=Supervision or Setup 2=Maximal Assistance 6=Modified [place] 3=Moderate Assistance 7=Complete [place] ADL-Treatment Functional [place] Measure 0=Not Assessed/NA 4=Minimal Assistance 1=Total Assistance 5=Supervision or Setup 2=Maximal Assistance 6=Modified [place] 3=Moderate Assistance 7=Complete IndependenceIRFPAI Quality Coding Scale 6 Independent with activity with or without an assistive device 5 Patient requires set up or clean up by helper. Patient completes activity by themselves 4 Supervision or touching assist (CGA). [place] provide cues , steadying assist 3 The helper provides less than half the effort to complete the activity 2 The helper provides more than half the effort to complete the activity 1 Dependent. The helper does all the effort to complete an activity 7 Patient refused to complete or attempt activity 9 The patient did not perform the activity before the current illness or injury 88 Not attempted due to Medical conditions or safety concerns Bathing (FIM): 5 (SBA in shower to wash self.) Shower/Bathe Self (QC): 4 Upper Body (FIM): 5 Upper Body Dressing (QC): 4 Lower Body Dressing (FIM): 5 Lower Body Dressing (QC): 4 On/Off Footwear (QC): 4 Transfers (B, C, W/C) (FIM): 5 (SBA and slow pace with walker.) Shower Transfer(FIM): 5 Other Treatment After pt. showers and dresses, she ambulates with OT to laundry room. Pt. has clothing to wash . Pt. is able to transfer laundry from washer to dryer with SBA, but when OT places her laundry in washing machine, pt. doesn't seem to know what to do. OT starts this for her. Pt. verbalizes that she does laundry at home. Pt. then ambulates with SBA to therapy gym. Completes therapy peg activity while wearing bilateral wrist weights, 1 lb. on each side. Pt. is slow , but able to alternate arms for increased UE strength. All needs met at end of session and pt. waiting for PT in therapy gym. Education OT Patient Education: Correct positioning, Exercise program, Modified ADL techniques, Progress toward Goal/Update tx plan, Purpose of tx/functional activities, Reviewed precautions, Rehab process, Transfer techniques Teaching Recipient: Patient Teaching Methods: Demonstration, Discussion Response to Teaching: Verbalize Understanding, Return Demonstration OT Short Term Goals Short Term Goals Time Frame: Jun 18, 2018 Lower Body Dressing(FIM): 5 Toileting(FIM): 5 Transfers (B,C,W/C) (FIM): 5 Toilet/Commode Transfer(FIM): 5 Additional Short Term Goals: 1-Demonstrate ADL Tasks, 2-Verbalize Understanding , 3-ImproveStrength/Taiwo 1=Demonstrate adherence to instructed precautions during ADL tasks. 2=Patient will verbalize/demonstrate understanding of assistive devices/ modifications for ADL. 3=Patient will improve strength/tolerance for activity to enable patient to perform ADL's. OT Mcc Goals Gift Shop Assistant Goals Time Frame: Jul 02, 2018 Eating (FIM): 7 Eating (QC): 6 Groomin Oral Hygiene (QC): 6 Bathing(FIM): 6 Shower/Bathe Self (QC): 6 Upper Body Dressing(FIM): 6 Upper Body Dressing (QC): 6 Lower Body Dressing(FIM): 6 Lower Body Dressing (QC): 6 On/Off Footwear (QC): 6 Toileting(FIM): 6 Toileting Hygiene (QC): 6 Toilet/Commode Transfer(FIM): 6 Toilet/Commode Transfer (QC): 6 Shower Transfer(FIM): 6 Additional Goals: 1-Demonstrate ADL Tasks, 2-Verbalize Understanding, 3- ImproveStrength/Taiwo 1=Demonstrate adherence to instructed precautions during ADL tasks. 2=Patient will verbalize/demonstrate understanding of assistive devices/ modifications for ADL. 3=Patient will improve strength/tolerance for activity to enable patient to perform ADL's. OT Education/Plan Problem List/Assessment Assessment: Decreased Activ Tolerance, Decreased UE Strength, Impaired I ADL's , Impaired Self-Care Skills Discharge Recommendations Plan/Recommendations: Continue POC Therapy D/C Recommendations: Home w/ Family Support, Scheduled Assistance Treatment Plan/Plan of Care Treatment,Training & Education: Yes Patient would benefit from OT for education, treatment and training to promote independence in ADL's, mobility, safety and/or upper extremity function for ADL' s. Plan of Care: ADL Retraining, Functional Mobility, UE Funct Exercise/Act Treatment Duration: Jul 02, 2018 Frequency: Modified Program (IRF) (12/05) Estimated Hrs Per Day: 1.5 hours per day Agreement: Yes Rehab Potential: Good Time/GCodes Start Time: 10:05 Stop Time: 11:05 Total Time Billed (hr/min): 60 Billed Treatment Time 1, ADL x 30minutes, FA x 30minutes ROSE DE ANDA OT Jun 13, 2018 12:18
--- NOTE | 2018-06-13 14:40 | Occupational Ther Daily Note ---
OT Current Status-Daily Note Subjective Pt. reports that she would like to leave. Family present and spoke with social media coordinator. Appearance Family would like to take pt. home. Pt. wants to leave. Completed co-treat with PT for family education to make sure that pt. and family are ready to discharge. Mental Status/Objective Patient Orientation: Person, Place Functional [place] Measure 0=Not Assessed/NA 4=Minimal Assistance 1=Total Assistance 5=Supervision or Setup 2=Maximal Assistance 6=Modified [place] 3=Moderate Assistance 7=Complete [place] ADL-Treatment Functional [place] Measure 0=Not Assessed/NA 4=Minimal Assistance 1=Total Assistance 5=Supervision or Setup 2=Maximal Assistance 6=Modified [place] 3=Moderate Assistance 7=Complete IndependenceIRFPAI Quality Coding Scale 6 Independent with activity with or without an assistive device 5 Patient requires set up or clean up by helper. Patient completes activity by themselves 4 Supervision or touching assist (CGA). [place] provide cues , steadying assist 3 The helper provides less than half the effort to complete the activity 2 The helper provides more than half the effort to complete the activity 1 Dependent. The helper does all the effort to complete an activity 7 Patient refused to complete or attempt activity 9 The patient did not perform the activity before the current illness or injury 88 Not attempted due to Medical conditions or safety concerns Transfers (B, C, W/C) (FIM): 5 (SBA with walker.) Other Treatment OT/PT co-treated due to pt's fatigue level, and need for family education. PT focused on transfer training while OT educated family on energy conservation and ADL needs. Pt. practiced ambulating over mat, up stairs, and car transfer, all with SBA and rest breaks. Pt. demonstrates slow gait and need for increased time. Family reports that pt. will have a big support system, and that pt. has multiple family members who are CNAs. Pt., spouse, and daughter all verbalize that they would like to take pt. home. All needs met back in room. insulation worker interior surface to speak with and will assess when pt. is ready to discharge. Education OT Patient Education: Correct positioning, Modified ADL techniques, Progress toward Goal/Update tx plan, Purpose of tx/functional activities, Reviewed precautions, Rehab process, Transfer techniques Teaching Recipient: Patient Teaching Methods: Demonstration, Discussion Response to Teaching: Verbalize Understanding, Return Demonstration OT Short Term Goals Short Term Goals Time Frame: Jun 18, 2018 Lower Body Dressing(FIM): 5 Toileting(FIM): 5 Transfers (B,C,W/C) (FIM): 5 Toilet/Commode Transfer(FIM): 5 Additional Short Term Goals: 1-Demonstrate ADL Tasks, 2-Verbalize Understanding , 3-ImproveStrength/Taiwo 1=Demonstrate adherence to instructed precautions during ADL tasks. 2=Patient will verbalize/demonstrate understanding of assistive devices/ modifications for ADL. 3=Patient will improve strength/tolerance for activity to enable patient to perform ADL's. OT Shelter Goals Heavy Cleaner Goals Time Frame: Jul 02, 2018 Eating (FIM): 7 Eating (QC): 6 Groomin Oral Hygiene (QC): 6 Bathing(FIM): 6 Shower/Bathe Self (QC): 6 Upper Body Dressing(FIM): 6 Upper Body Dressing (QC): 6 Lower Body Dressing(FIM): 6 Lower Body Dressing (QC): 6 On/Off Footwear (QC): 6 Toileting(FIM): 6 Toileting Hygiene (QC): 6 Toilet/Commode Transfer(FIM): 6 Toilet/Commode Transfer (QC): 6 Shower Transfer(FIM): 6 Additional Goals: 1-Demonstrate ADL Tasks, 2-Verbalize Understanding, 3- ImproveStrength/Taiwo 1=Demonstrate adherence to instructed precautions during ADL tasks. 2=Patient will verbalize/demonstrate understanding of assistive devices/ modifications for ADL. 3=Patient will improve strength/tolerance for activity to enable patient to perform ADL's. OT Education/Plan Problem List/Assessment Assessment: Decreased Activ Tolerance, Impaired I ADL's Discharge Recommendations Plan/Recommendations: Continue POC Therapy D/C Recommendations: Home w/ Family Support Treatment Plan/Plan of Care Treatment,Training & Education: Yes Patient would benefit from OT for education, treatment and training to promote independence in ADL's, mobility, safety and/or upper extremity function for ADL' s. Plan of Care: ADL Retraining, Functional Mobility, UE Funct Exercise/Act Treatment Duration: Jul 02, 2018 Frequency: Modified Program (IRF) (12/05) Estimated Hrs Per Day: 1.5 hours per day Agreement: Yes Rehab Potential: Good Time/GCodes Start Time: 14:00 Stop Time: 14:30 Total Time Billed (hr/min): 30 Billed Treatment Time 1, FA x 2 Co-treat with PT. Please see above note for designated roles. ROSE DE ANDA OT Jun 13, 2018 14:40
--- NOTE | 2018-06-13 14:43 | Therapy Group Daily Note ---
Therapy Daily Group Note Patient Education Topic Home Safety Exercises LE Seated Exercise, UE Exercise Other/Notes Pt ambulated to therapy gym using [facility] for OT/PT group. Group consisted of introductions (name, place living, would you change your name?), socialization, home safety education, home safety trivia/jeopardy and seated UE/LE exercises. Pt introduced self appropriately and actively listened to peers. Pt contributed to conversations and discussion with peers. Pt verbalized understanding of educational topic and was able to answer questions correctly. After therapy, pt left in care of OT/PT. All needs met. Start Time: 13:00 Stop Time: 14:00 Total Billed Treatment Time: 60 Total Billed Treatment 1-GRP ARNALDO SPENCE Jun 13, 2018 14:43
[2018-06-13] MEDS ORDERED: PRD10T PO (14:57)
[2018-06-13] MEDS ORDERED: ZINC28PA TOP (14:57)
[2018-06-13] MEDS ORDERED: BUDE0.5A INH (14:57)
[2018-06-13] MEDS ORDERED: HYDR25TA4 PO (14:57)
[2018-06-13] MEDS ORDERED: CARV12.53 PO (14:57)
[2018-06-13] MEDS ORDERED: ISM60TCR PO (14:57)
[2018-06-13 15:26] VITALS: BP 140/70
--- NOTE | 2018-06-13 15:28 | Physical Therapy Daily Note ---
PT Daily Note-Current Subjective Pt sitting in chair after Group upon arrival. PT & OT co-treat due to Pt's fatigue level from daily tx. Pt, Sp & daughter express the want to have pt discharged and return home. They all reported several CNAs available to assist pt at home & that pt will plenty of support. Pain Location: No Pain Reported Mental Status Patient Orientation: Person, Place, Situation Transfers Functional [place] Measure 0=Not Assessed/NA 4=Minimal Assistance 1=Total Assistance 5=Supervision or Setup 2=Maximal Assistance 6=Modified [place] 3=Moderate Assistance 7=Complete IndependenceIRFPAI Quality Coding Scale 6 Independent with activity with or without an assistive device 5 Patient requires set up or clean up by helper. Patient completes activity by themselves 4 Supervision or touching assist (CGA). [place] provide cues , steadying assist 3 The helper provides less than half the effort to complete the activity 2 The helper provides more than half the effort to complete the activity 1 Dependent. The helper does all the effort to complete an activity 7 Patient refused to complete or attempt activity 9 The patient did not perform the activity before the current illness or injury 88 Not attempted due to Medical conditions or safety concerns Transfers (B, C, W/C) (FIM): 5 Scootin Rollin Roll Left to Right (QC): 5 Supine to/from Sit: 5 Sit to/from Stand: 5 Sit to Lying (QC): 5 Sit to Stand (QC): 5 Chair/Zxq-jd-Raspm Xfer(QC): 5 Bed to/from Chair: 5 Car Transfer (QC): 5 Weight Bearing Right Lower Extremity: Right Weight Bearing/Tolerated Left Lower Extremity: Left Weight Bearing/Tolerated Gait Training Does the Patient Walk?: Yes Gait (FIM): 5 Distance (FIM): 3=150 ft Distance: 150' Walk 10 feet (QC): 5 Walk 50 ft with 2 Turns(QC): 5 Walk 150 ft (QC): 5 Walking 10ft/uneven surface-QC: 5 Gait Level of Assist: 5 Gait Persons Needed: 1 Gait Assistive Device: FWW Pt has slow kevin and takes extended time to complete tasks. Wheelchair Training Does the Pt Use a Wheelchair?: No Stair Training Stair Training: Handrails/: 2 handrails Stairs (FIM): 2 #of Steps: 4 1 Step (curb) (QC): 4 4 Steps (QC): 4 Stairs: Pattern: Step to Level of Assist: 4 Pt fatigues after 4 steps and cannot complete anymore. Balance Picking up an Object (QC): 88 Special Test Comments This is not tested due to safety for pt. Pt and family report that pt will use family members to assist with picking up items from floor. Treatments Pt transfers, ambulates, walks across varying surface, completes car transfer and bed mobility at A. Pt climbs 4 steps at [facility] for safety. Pt's daughter & Sp watched tx to assure they felt comfortable with taking pt home and would know what help pt might need. Assessment Current Status: Good Progress Pt, Sp & daughter all agreed that they would like to return home with pt and felt comfortable with her progress and what they would need to help her with. SUPERVISOR PHOSPHORIC ACID advised that Cut Off Machine Operator would talk to Dr to ensure that medically pt was able to return home at this time and would advise them. PT Short Term Goals Short Term Goals Time Frame: Jun 18, 2018 Transfers (B,C,W/C) (FIM): 5 Gait (FIM): 2 Gait Distance Comment: 120' Gait Level of Assist: 5 Gait Assistive Device: FWW PT Penitentiary Goals Penitentiary Goals PT Television Repair Teacher Goals Time Frame: Jul 02, 2018 Transfers (B,C,W/C) (FIM): 6 Sit to Lying (QC): 6 Lying-Sitting on Side/Bed(QC): 6 Sit to Stand (QC): 6 Rollin Roll Left to Right (QC): 6 Chair/Clw-zf-Vizkh Xfer(QC): 6 Car Transfer (QC): 6 Gait (FIM): 6 Distance: 200' Walk 10 feet (QC): 6 Walk 10ft-Uneven Surface(QC): 6 Walk 50ft with 2 Turns (QC): 6 Walk 150 ft (QC): 6 Gait Assistive Device: FWW Stairs (FIM): 2 # of Steps: 4 1 Step (curb) (QC): 4 4 Steps (QC): 4 Stairs Level Of Assist: 5 PT Plan Problem List Problem List: Activity Tolerance, Functional Strength, Safety, Balance, Gait Treatment/Plan Treatment Plan: Continue Plan of Care Treatment Plan: Bed Mobility, Education, Functional Activity Taiwo, Functional Strength, Group Therapy, Gait, Safety, Therapeutic Exercise, Transfers Treatment Duration: Jul 02, 2018 Frequency: Modified Program (IRF) Estimated Hrs Per Day: 1.5 hours per day Patient and/or Family Agrees t: Yes Safety Risks/Education Patient Education: Correct Positioning, Safety Issues Teaching Recipient: Patient, Family, Significant Other Teaching Methods: Demonstration, Discussion Response to Teaching: Verbalize Understanding Time/GCodes Time In: 1400 Time Out: 1430 Total Billed Treatment Time: 30 Total Billed Treatment 1, FA x2 (30m) Co-treat with OT for 30m Pt focused on Mobility and Transfer Training while OT focused on Energy Conservation & Education of ADLs. G Codes Necessary: BROCK Helms SUPERVISOR PHOSPHORIC ACID Jun 13, 2018 15:28
--- NOTE | 2018-06-14 12:00 | Therapy Team Discharge Summary ---
Therapy Discharge Summary Discharge Recommendations Date of Discharge Jun 13, 2018 at 15:30 Therapy D/C Recommendations: Home w/ Family Support Occupational Therapy Pt admitted to ARU following acute hospitalization for CVA and AE COPD. On admission pt required min assist with bathing and toilet transfers and SBA for UE dressing and grooming. Skilled OT intervention focused on ADL training, transfers, strengthening, and safety. Pt progress with therapy and by discharge is completing most basic ADLs and transfers with SBA. Pt requested to return home on 06/13/18 with family. Pt did not meet OT LTG of being modified independent. Pt returned home with family support. D/C ARU OT. Decreased Activ Tolerance, Impaired I ADL's PT Shelter Goals Graphics Artist Goals PT Graphics Artist Goals Time Frame: Jul 02, 2018 Transfers (B,C,W/C) (FIM): 6 Roll Left to Right (QC): 6 Sit to Lying (QC): 6 Lying-Sitting on Side/Bed(QC): 6 Sit to Stand (QC): 6 Chair/Xqe-ap-Gpwiw Xfer(QC): 6 Car Transfer (QC): 6 Gait (FIM): 6 Distance: 200' Walk 10 feet (QC): 6 Walk 10ft-Uneven Surface(QC): 6 Walk 50ft with 2 Turns (QC): 6 Walk 150 ft (QC): 6 Gait Assistive Device: FWW Stairs (FIM): 2 # of Steps: 4 1 Step (curb) (QC): 4 4 Steps (QC): 4 Stairs Level Of Assist: 5 OT Graphics Artist Goals Graphics Artist Goals Time Frame: Jul 02, 2018 Eating (FIM): 7 Eating (QC): 6 Oral Hygiene (QC): 6 Grooming(FIM): 6 Bathing(FIM): 6 Shower/Bathe Self (QC): 6 Upper Body Dressing(FIM): 6 Upper Body Dressing (QC): 6 Lower Body Dressing(FIM): 6 Lower Body Dressing (QC): 6 On/Off Footwear (QC): 6 Toileting(FIM): 6 Toileting Hygiene (QC): 6 Toilet/Commode Transfer(FIM): 6 Toilet/Commode Transfer (QC): 6 Shower Transfer(FIM): 6 Additional Goals: 1-Demonstrate ADL Tasks, 2-Verbalize Understanding, 3- ImproveStrength/Taiwo 1=Demonstrate adherence to instructed precautions during ADL tasks. 2=Patient will verbalize/demonstrate understanding of assistive devices/ modifications for ADL. 3=Patient will improve strength/tolerance for activity to enable patient to perform ADL's. Speech Graphics Artist Goals Shelter Goals No LTGs established as ST not indicated ANA VERDUZCO OT Jun 14, 2018 12:00
== END 2018-06-13 15:30 | disposition home or self-care (01) | DRG 57 ==
PROVIDERS: ADMIT Physical Medicine & Rehabilitation; ATTEND Physical Medicine & Rehabilitation
DX: I69.354 Hemiplegia and hemiparesis following cerebral infarction affecting left non-dominant side (principal); J44.9 Chronic obstructive pulmonary disease, unspecified; I48.2 Chronic atrial fibrillation; I49.3 Ventricular premature depolarization; I10 Essential (primary) hypertension; I25.10 Atherosclerotic heart disease of native coronary artery without angina pectoris; K21.9 Gastro-esophageal reflux disease without esophagitis; E66.2 Morbid (severe) obesity with alveolar hypoventilation; I27.20 Pulmonary hypertension, unspecified; R73.9 Hyperglycemia, unspecified; Z68.36 Body mass index [BMI] 36.0-36.9, adult; Z99.81 Dependence on supplemental oxygen; T38.0X5A Adverse effect of glucocorticoids and synthetic analogues, initial encounter
CPT/HCPCS: 36415; 80053; 82962; 85025; 94640; 94760

== ENCOUNTER 2019-01-22 16:38 | Inpatient (IN) | payer MEDICARE, MEDICAID ==
[~2019-01-22] VITALS: Ht 165.1 cm; Wt 97.6 kg
[~2019-01-22 16:38] MED LIST changes: -AMLO10TA2 PO; +AMLO10TA7 PO; +BUDE0.5A INH; +IPRA3AMP31 NEB; +ZINC28PA TOP
--- OUTSIDE RECORDS SUMMARY | 2019-01-22 16:44 | XMS REPORT | Clinical Summary ---
Author Author [facility] Organization [facility] Address Unknown Phone Unavailable Care Team Providers Care Biological Science Aide Name Role Phone Unverified, Unverified Md PCP Unavailable Raj Hernandez MD Unavailable Source Comments Some departments are not documenting in the electronic medical record. If you do not see the information that you expected, contact Release of Information in the Health Information Management department at [phone] for further assistance in locating additional records.[facility] Allergies Comments Active Allergy Reactions Severity Noted Date Tape Adhesive RASH 07/16/2012 Ashley RASH 07/16/2012 Penicillins RASH 07/16/2012 Sulfa (Sulfonamide NAUSEA AND 07/16/2012 Antibiotics) VOMITING Iopanoic Acid RASH 07/16/2012 Medications End Date Status Medication Sig Dispensed Refills Start Date Active polyethylene glycol 3350 Take 17 g by 0 (GLYCOLAX; MIRALAX) 17 mouth daily. gram/dose powder Active bisacodyl (DULCOLAX) 5 mg Take 5 mg by 0 tablet mouth every 24 hours as needed. Active promethazine (PHENERGAN) Take 25 mg by 0 25 mg tablet mouth every 6 hours as needed. Active tolterodine LA(+) (DETROL Take 4 mg by 0 LA) 4 mg capsule mouth daily. Active HYDROcodone-acetaminophen Take 1 Tab by 0 (+) (NORCO) 5-325 mg mouth every 4 tablet hours as needed. Active albuterol (VENTOLIN HFA, Inhale 2 0 PROAIR HFA) 90 Puffs by mcg/actuation inhaler mouth every 6 hours as needed. Active cyclobenzaprine Take 10 mg by 0 (FLEXERIL) 10 mg tablet mouth three times daily as needed. Active albuterol-ipratropium Inhale 3 mL 0 (DUONEB) 0.5 mg-3 mg(2.5 solution as mg base)/3 mL nebulizer directed four solution times daily. Active hydrochlorothiazide Take 25 mg by 0 (HYDRODIURIL) 25 mg mouth daily. tablet Active lansoprazole DR(+) Take 30 mg by 0 (PREVACID) 30 mg capsule mouth daily. Active amLODIPine (NORVASC) 10 Take 10 mg by 0 mg tablet mouth daily. Active montelukast (SINGULAIR) Take 10 mg by 0 10 mg tablet mouth at bedtime daily. Active isosorbide mononitrate SR Take 60 mg by 0 (IMDUR) 60 mg tablet mouth every morning. Active potassium chloride SR Take 20 mEq 0 (K-DUR) 20 mEq tablet by mouth daily. Active clopiDOGrel (PLAVIX) 75 Take 75 mg by 0 mg tablet mouth daily. Active nitroglycerin (NITROSTAT) Place 0.4 mg 0 0.4 mg tablet under tongue every 5 minutes as needed. Active PARoxetine (PAXIL) 30 mg Take 30 mg by 0 tablet mouth daily. Active atorvastatin (LIPITOR) 20 Take 20 mg by 0 mg tablet mouth daily. Active benazepril (LOTENSIN) 40 Take 40 mg by 0 mg tablet mouth daily. Active OLANZapine (ZYPREXA) 10 Take 10 mg by 0 mg tablet mouth at bedtime daily. Active ibuprofen (MOTRIN) 800 mg Take 800 mg 0 tablet by mouth every 6 hours as needed. Active albuterol 0.5% Inhale 2.5 mg 0 (PROVENTIL; VENTOLIN) 2.5 solution as mg/0.5 mL Nebu nebulizer directed solution every 6 hours as needed. Active aspirin EC 325 mg tablet Take 325 mg 0 by mouth daily. Active Problems Problem Noted Date Renal mass, left 07/16/2012 Overview: 1.7 cm enhancing non-cystic mass of left kidney on CT scan obtained on 06/14/12 Family History Medical History Relation Name Comments Heart Attack Father Cancer Maternal Grandfather Diabetes Paternal Grandmother Relation Name Status Comments Father Maternal Grandfather Paternal Grandmother Social History Date Tobacco Use Types Packs/Day Years Used Never Smoker Smokeless Tobacco: Never Used Alcohol Use Drinks/Week oz/Week Comments No Sex Assigned at Date Recorded Not on file Industry Job Start Date Occupation Not on file Not on file Not on file Travel End Travel History Travel Start No recent travel history available. Last Filed Vital Signs Time Taken Vital Sign Reading 07/16/2012 10:50 AM CDT Blood Pressure 134/78 07/16/2012 10:50 AM CDT Pulse 74 07/16/2012 10:50 AM CDT Temperature 36.8 C (98.2 F) 07/16/2012 10:50 AM CDT Respiratory Rate 16 - Oxygen Saturation - - Inhaled Oxygen - Concentration 07/16/2012 10:50 AM CDT Weight 97.3 kg (214 lb 6.4 oz) 07/16/2012 10:50 AM CDT Height 165.1 cm (5' 5") 07/16/2012 10:50 AM CDT Body Mass Index 35.68 Plan of Treatment Health Maintenance Due Date Last Done Comments HEPATITIS C SCREENING 1953 PHYSICAL (COMPREHENSIVE) 1960 EXAM HIV SCREENING 1968 DTAP/TDAP VACCINES (1 - 1971 Tdap) BREAST CANCER SCREENING 1993 COLORECTAL CANCER 2003 SCREENING SHINGLES RECOMBINANT 2003 VACCINE (1 of 2) INFLUENZA VACCINE 05/29/2018 OSTEOPOROSIS 2018 SCREENING/MONITORING PNEUMONIA (PCV13/PPSV23) 2018 VACCINES (1 of 2 - PCV13) Results Not on filefrom Last 3 Months
--- OUTSIDE RECORDS SUMMARY | 2019-01-22 16:44 | XMS REPORT | Clinical Summary ---
Author Author [facility] Organization [facility] Address Unknown Phone Unavailable Care Team Providers Care Repairer General Name Role Phone PCP Unavailable Allergies Not on File Current Medications Not on file Active Problems Not on file Social History Tobacco Use Types Packs/Day Years Used Date Never Assessed Sex Assigned at Date Recorded Not on file Last Filed Vital Signs Not on file Plan of Treatment Not on file Results Not on filefrom Last 3 Months
--- OUTSIDE RECORDS SUMMARY | 2019-01-22 16:44 | XMS REPORT ---
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 Name Role Phone ANGELITO CHU Unavailable PROBLEMS Type Condition ICD9-CM Code [id number] Code Onset Dates Condition Status SNOMED Code Problem DVT (deep venous thrombosis), right I82.401 Active 210433123 Problem Continuous leakage of urine N39.45 Active 217234907 Problem Major depressive disorder F32.9 Active 519106869 Problem Cerebral ischemia I67.82 Active 383077982 Problem Cardiomegaly I51.7 Active 4566835 Problem Esophageal reflux K21.9 Active 237342091 Problem Hypertension I10 Active 42810241 Problem Abnormal results of thyroid function studies R94.6 Active 692172716 Problem Panlobular emphysema J43.1 Active 4296137 ALLERGIES Substance Reaction Event Type Date Status Telepaque\ Unknown Non Drug Allergy Nov, Active [place] Juice Unknown Non Drug Allergy Nov, Active [place] Unknown Non Drug Allergy Nov, Active Sulfacetamide Sodium Unknown Drug Allergy Nov, Active Penicillin G Potassium Unknown Drug Allergy Nov, Active Adhesive Tape Unknown Non Drug Allergy Nov, Active ENCOUNTERS Encounter Location Date Diagnosis [address] [address] Nov, Hypertension I10 ; Major depressive disorder F32.9 ; Esophageal reflux K21.9 ; Abnormal results of thyroid function studies R94.6 ; Panlobular emphysema J43.1 and Continuous leakage of urine N39.[address] [address] Nov, IMMUNIZATIONS No Known Immunizations SOCIAL HISTORY Never Assessed REASON FOR VISIT Establish Care PLAN OF CARE Activity Details Follow Up 3 Months Reason:fu with labs VITAL SIGNS Height 5ft 5in in 2018-12-12 Weight 217lb lbs 2018-12-12 BMI 36.11 kg/m2 2018-12-12 Blood pressure systolic 128 mmHg 2018-12-12 Blood pressure diastolic 78 mmHg 2018-12-12 MEDICATIONS Medication Instructions Dosage Frequency Start Date End Date Duration Status Breo Ellipta 200-25 MCG/INH Inhalation Once a day 1 puff 24h Active Xanax 0.25 MG Orally Twice a day 1 tablet 12h Active ProAir HFA 108 (90 Base) MCG/ACT Inhalation every 6 hrs 2 puffs as needed 6h Active Omeprazole 20 MG Orally Once a day 1 capsule 24h 30 day(s) Active Singulair 10 MG Orally Once a day 1 tablet 24h 30 day(s) Active Lipitor 40 MG Orally Once a day 1 tablet 24h 30 day(s) Active Deltasone 20 MG Orally Once a day 1 tablet 24h 30 day(s) Active Zyprexa 10 MG Orally Once a day 1 tablet 24h 30 day(s) Active Norvasc 10 MG Orally Once a day 1 tablet 24h 30 day(s) Active Flonase 50 MCG/ACT Nasally Once a day 1 spray in each nostril 24h 30 day(s) Active Hydrochlorothiazide 25 MG Orally Once a day 1 tablet in the morning 24h 30 day(s) Active Eliquis 5 MG as directed Active DuoNeb Active Albuterol Sulfate (2.5 MG/3ML) 0.083% Inhalation Three times a day 3 ml as needed 8h Active Nitrostat 0.4 MG Sublingual PRN as directed 90 days Active ZyrTEC Active Spiriva Respimat 1.25 MCG/ACT Inhalation Once a day 2 puffs 24h Active Coreg 6.25 MG as directed Active Plavix 75 MG Orally Once a day 1 tablet 24h 30 day(s) Active Isosorbide Dinitrate ER 40 MG Orally Once a day 1 tablet 24h 30 day(s ) Active Aldactone 25 MG 1 tablet 30 day(s) Active Ambien 10 MG Orally Once a day 1 tablet at bedtime as needed 24h Active RESULTS No Results PROCEDURES Procedure Date Ordered Result Body Site [facility] VISIT NEW PATIENT Dec 12, 2018 INSTRUCTIONS MEDICATIONS ADMINISTERED No Known Medications MEDICAL (GENERAL) HISTORY Type Description Date Medical History Hypertension Medical History Major depressive disorder Medical History Esophageal reflux Medical History Cerebral ischemia Medical History Asthma Medical History Renal cell cancer Medical History Oliguria Medical History Thyroid mass Medical History Sleep apnea Medical History Atrial fibrillation Medical History Cardiomegaly Medical History CVA (cerebral vascular accident) Medical History PAD (peripheral artery disease) Medical History Hypokalemia Medical History Abnormal results of thyroid function studies Medical History DVT (deep venous thrombosis), right Surgical History Colonoscopy Surgical History Stent Placement Surgical History Hysterectomy Surgical History Appendectomy Surgical History Tonsilectomy Hospitalization History COPD
[2019-01-22] MEDS ORDERED: RT-ALBUTEROL/IPRATROPIUM 3 ML (DUONEB) VIAL INH ONE ×2 (16:45→17:15)
[2019-01-22 16:53] LABS: BASOPHILS % (AUTO) 0 % (0-10); EOSINOPHILS % (AUTO) 0 % (0-10); HEMATOCRIT 44 % (35-52); HEMOGLOBIN 14.6 G/DL (11.5-16.0); LYMPHOCYTES # (AUTO) 1.5 X 10^3 (1.0-4.0); LYMPHOCYTES % (AUTO) 15 % (12-44); MEAN CORPUSCULAR HEMOGLOBIN 28 PG (25-34); MEAN CORPUSCULAR HGB CONC 33 G/DL (32-36); MEAN CORPUSCULAR VOLUME 84 FL (80-99); MEAN PLATELET VOLUME 11.3 FL (7.4-10.4); MONOCYTES # (AUTO) 0.2 X 10^3 (0.0-1.0); MONOCYTES % (AUTO) 2 % (0-12); NEUTROPHILS # (AUTO) 7.7 X 10^3 (1.8-7.8); NEUTROPHILS % (AUTO) 82 % (42-75); PLATELET COUNT 249 10^3/uL (130-400); RED CELL DISTRIBUTION WIDTH 13.4 % (10.0-14.5); WHITE BLOOD COUNT 9.4 10^3/uL (4.3-11.0)
[2019-01-22] MEDS ORDERED: AZIT250T12 (17:06)
[2019-01-22] MEDS ORDERED: RT-ALBUTEROL SULF 2.5 MG/3 ML PRE-MIX VIAL ONE (17:12)
--- NOTE | 2019-01-22 17:17 | Diagnostic Imaging Report ---
INDICATION: Shortness of breath. COMPARISON: Comparison with 05/31/2018. FINDINGS: ET tube and NG tube have been removed. There is cardiomegaly. The lungs are well-aerated. No evidence of pulmonary edema. No pneumothorax or pleural effusion. No bony abnormality. IMPRESSION: Cardiomegaly without acute change. Dictated by: Dictated on workstation # [id number]
[2019-01-22 17:18] LABS: ALBUMIN 4.5 GM/DL (3.2-4.5); BILIRUBIN,TOTAL 0.5 MG/DL (0.1-1.0); CALCIUM 10.6 MG/DL (8.5-10.1); CREATININE SERUM 1.41 MG/DL (0.60-1.30); POTASSIUM 3.4 MMOL/L (3.6-5.0); TOTAL PROTEIN 7.4 GM/DL (6.4-8.2)
--- NOTE | 2019-01-22 17:42 | NUR ---
TO ROOM CON'T TO RECEIVE HR LONG TX.
--- NOTE | 2019-01-22 17:56 | ED Respiratory ---
General Chief Complaint: Respiratory Problems Stated Complaint: SOB,CONGESTED Nursing Triage Note: AMB TO ROOM HAS FELT SOA AND CONGESTED SINCE 01/14 HAS BEEN ON MEDS SAW YESTERDAY AND RECEIVED A STEROID INJECTION. TODAY FELT LIKE SHE IS . WORSE Source: patient Exam Limitations: no limitations History of Present Illness Date Seen by Provider: Jan 22, 2019 Time Seen by Provider: 17:35 Initial Comments 63-year-old female who presents to the emergency room with complaints of congestion and shortness of breath that started on 12/1918. When symptoms started she went to her PCP Dr. Hansen and received a steroid injection and was placed on Z-Eamon for possible pneumonia. She had little improvement over the week and went back to her doctor yesterday and received a second steroid injection but over the course of the day she has felt progressively worse and has had increase wheezing. She has an extensive history of COPD and ended up on the ventilator last month for COPD complications. She is alert and oriented on arrival to the emergency room. There is audible wheezing. Her oxygen saturation is 98% on room air. Timing/Duration: just prior to arrival Allergies and Home Medications Allergies Coded Allergies: Penicillins (Verified Allergy, Unknown, 03/12/17) Sulfa (Sulfonamide Antibiotics) (Verified Allergy, Unknown, 03/12/17) adhesive tape (Verified Allergy, Unknown, 03/12/17) Home Medications Albuterol Sulfate 1 Puff Puff, 1 PUFF INH Q6H PRN for SHORTNESS OF BREATH, ( Reported) Amlodipine Besylate 10 Mg Tablet, 10 MG PO DAILY, (Reported) Apixaban 5 Mg Tablet, 5 MG PO BID, (Reported) Aspirin 81 Mg Tablet.dr, 81 MG PO DAILY, (Reported) Atorvastatin Calcium 40 Mg Tablet, 40 MG PO HS, (Reported) Budesonide 0.5 Mg/2 Ml Ampul.neb, 0.5 MG INH RTBID Prescribed by: MATHEW DENNEY on 06/13/181456 Carvedilol 12.5 Mg Tablet, 25 MG PO BID Prescribed by: MATHEW DENNEY on 06/13/181456 Cetirizine HCl 10 Mg Tablet, 10 MG PO DAILY, (Reported) Clopidogrel Bisulfate 75 Mg Tablet, 75 MG PO DAILY, (Reported) Fluticasone Propionate 16 Gm [place].susp, 2 SPRAY NS DAILY, (Reported) Fluticasone/Salmeterol 1 Each Blst.w.dev, 1 PUFF INH BID, (Reported) Hydrochlorothiazide 25 Mg Tablet, 25 MG PO DAILY Prescribed by: MATHEW DENNEY on 06/13/181456 Ibuprofen 800 Mg Tablet, 800 MG PO TID PRN for PAIN-MILD, (Reported) Isosorbide Mononitrate 60 Mg Tab, 60 MG PO DAILY Prescribed by: MATHEW DENNEY on 06/13/181456 Montelukast Sodium 10 Mg Tablet, 10 MG PO DAILY, (Reported) Nitroglycerin 0.4 Mg Tab.subl, 0.4 MG SL UD PRN for CHEST PAIN, (Reported) Omeprazole 20 Mg Capsule.dr, 20 MG PO DAILY, (Reported) LAST FILLED 10-24-17 #90 Prednisone 10 Mg Tab, 40 MG PO DAILY@0700 Prescribed by: MATHEW DENNEY on 06/13/181456 Spironolactone 25 Mg Tablet, 25 MG PO DAILY, (Reported) Zinc Oxide 28 Gm Oint, 0 GM TOP TID Prescribed by: MATHEW DENNEY on 06/13/181456 Zolpidem Tartrate 10 Mg Tablet, 10 MG PO HS PRN for SLEEP, (Reported) Patient Home Medication List Home Medication List Reviewed: Yes Review of Systems Review of Systems Constitutional: see HPI; No chills, No fever Respiratory: see HPI, cough; No phlegm; short of breath, wheezing All Other Systems Reviewed Negative Unless Noted: Yes Past Taecdgx-Tgvmvl-Zymcxo Hx Past Med/Social Hx: Reviewed Nursing Past Med/Soc Hx Patient Social History Alcohol Use: Denies Use Recreational Drug Use: No Smoking Status: Never a Smoker Recent Foreign Travel: No Contact w/Someone Who Travel: No Recent Infectious Disease Expo: No Recent Hopitalizations: Yes (LUNG ISSUES-02/2017; dc'd from [facility] on 05/24/18) Immunizations Up To Date Tetanus Booster (TDap): Unknown Date of Pneumonia Vaccine: Oct 29, 2017 Seasonal Allergies Seasonal Allergies: Yes Past Medical History Surgeries: Yes (biopsy left breast) Appendectomy, Hysterectomy, Tonsillectomy Respiratory: Yes Pneumonia, COPD Currently Using CPAP: Yes Currently Using BIPAP: No Cardiac: Yes (STENTS x 3) Coronary Artery Disease, High Cholesterol, Hypertension, Irregular Heartbeat Neurological: Yes Reproductive Disorders: No Sexually Transmitted Disease: No HIV/AIDS: No Genitourinary: Yes (Lt Nephrectomy) Bladder Infection, UTI-Chronic Gastrointestinal: Yes Gastroesophageal Reflux Musculoskeletal: Yes Arthritis, Chronic Back Pain Endocrine: Yes HEENT: Yes (blurred) Loss of Vision: Bilateral Hearing Impairment: Denies Cancer: No Psychosocial: Yes Anxiety, Depression Integumentary: No Blood Disorders: No Adverse Reaction/Blood Tranf: No Family Medical History Reviewed Nursing Family Hx Colon cancer G8 BROTHER Diabetes mellitus G8 BROTHER G8 SISTER FHx: heart disease 19 FATHER 19 MOTHER Myocardial infarction 19 FATHER G8 SISTER COPD Physical Exam Vital Signs - First Documented 01/22/19 16:41 Temp 97.0 Pulse 80 Resp 18 B/P (MAP) 142/78 (99) Pulse Ox 97 O2 Delivery Room Air Capillary Refill : Less Than 3 Seconds Height: 5'5.00" Weight: 207lbs. 0.0oz. 93.129302qn; 36.3 BMI Method:Stated General Appearance: WD/WN, no apparent distress Eyes: Bilateral Eye Normal Inspection, Bilateral Eye PERRL, Bilateral Eye EOMI HEENT: PERRL/EOMI, normal ENT inspection, TMs normal, pharynx normal Respiratory: chest non-tender, no respiratory distress, no accessory muscle use , wheezing, expiration Cardiovascular: normal peripheral pulses, no edema, no gallop, no JVD, no murmur, other (chronic atrial fibrillation) Gastrointestinal: normal bowel sounds, non tender, soft, no organomegaly, no pulsatile mass Extremities: no pedal edema, no calf tenderness, normal capillary refill Neurologic/Psychiatric: alert, normal mood/affect, oriented x 3 Skin: normal color, warm/dry Focused Exam Lactate Level 01/22/19 17:05: Lactic Acid Level 3.37*H Lactic Acid Level Laboratory Tests Test 01/22/19 17:05 Lactic Acid Level 3.37 MMOL/L (0.50-2.00) *H Procedures/Interventions Date of ETT Placement: May 31, 2018 Time of ETT Placement: 1155 Progress/Results/Core Measures Suspected Sepsis Recent Fever Within 48 Hours: No Infection Criteria Present: None New/Unexplained Altered Menta: No Sepsis Screen: No Definite Risk SIRS Temperature:97.0 Pulse: 80 Respiratory Rate: 18 Laboratory Tests 01/22/19 16:46: White Blood Count 9.4 Blood Pressure 142 /78 Mean: 99 3/27/19 17:05: Lactic Acid Level 3.37*H Laboratory Tests 01/22/19 16:46: Creatinine 1.41H, Platelet Count 249, Total Bilirubin 0.5 Results/Orders Lab Results Laboratory Tests Test 01/22/19 16:46 01/22/19 17:05 01/22/19 18:20 Range/Units White Blood Count 9.4 4.3-11.0 10^3/uL Red Blood Count 5.23 4.35-5.85 10^6/uL Hemoglobin 14.6 11.5-16.0 G/DL Hematocrit 44 35-52 % Mean Corpuscular Volume 84 80-99 FL Mean Corpuscular Hemoglobin 28 25-34 PG Mean Corpuscular Hemoglobin Concent 33 32-36 G/DL Red Cell Distribution Width 13.4 10.0-14.5 % Platelet Count 249 130-400 10^3/uL Mean Platelet Volume 11.3 H 7.4-10.4 FL Neutrophils (%) (Auto) 82 H 42-75 % Lymphocytes (%) (Auto) 15 12-44 % Monocytes (%) (Auto) 2 0-12 % Eosinophils (%) (Auto) 0 0-10 % Basophils (%) (Auto) 0 0-10 % Neutrophils # (Auto) 7.7 1.8-7.8 X 10^3 Lymphocytes # (Auto) 1.5 1.0-4.0 X 10^3 Monocytes # (Auto) 0.2 0.0-1.0 X 10^3 Eosinophils # (Auto) 0.0 0.0-0.3 10^3/uL Basophils # (Auto) 0.0 0.0-0.1 10^3/uL Sodium Level 141 135-145 MMOL/L Potassium Level 3.4 L 3.6-5.0 MMOL/L Chloride Level 102 98-107 MMOL/L Carbon Dioxide Level 24 21-32 MMOL/L Anion Gap 15 H 5-14 MMOL/L Blood Urea Nitrogen 31 H 7-18 MG/DL Creatinine 1.41 H 0.60-1.30 MG/DL Estimat Glomerular Filtration Rate 37 BUN/Creatinine Ratio 22 Glucose Level 266 H 70-105 MG/DL Calcium Level 10.6 H 8.5-10.1 MG/DL Corrected Calcium 10.2 H 8.5-10.1 MG/DL Total Bilirubin 0.5 0.1-1.0 MG/DL Aspartate Amino Transf (AST/SGOT) 12 5-34 U/L Alanine Aminotransferase (ALT/SGPT) 12 0-55 U/L Alkaline Phosphatase 55 40-136 U/L B-Type Natriuretic Peptide 277.5 H <100.0 PG/ML Total Protein 7.4 6.4-8.2 GM/DL Albumin 4.5 3.2-4.5 GM/DL Lactic Acid Level 3.37 *H 0.50-2.00 MMOL/L Urine Color YELLOW Urine Clarity CLEAR Urine pH 5 5-9 Urine Specific [place] 1.025 H 1.016-1.022 Urine Protein 1+ H NEGATIVE Urine Glucose (UA) 1+ H NEGATIVE Urine Ketones 1+ H NEGATIVE Urine Nitrite NEGATIVE NEGATIVE Urine Bilirubin NEGATIVE NEGATIVE Urine Urobilinogen NORMAL NORMAL MG/DL Urine Leukocyte Esterase 2+ H NEGATIVE Urine RBC (Auto) NEGATIVE NEGATIVE Urine RBC NONE /HPF Urine WBC 2-5 /HPF Urine Squamous Epithelial Cells 10-25 H /HPF Urine Crystals NONE /LPF Urine Bacteria FEW H /HPF Urine Casts PRESENT /LPF Urine Hyaline Casts 10-25 H /LPF Urine Mucus NEGATIVE /LPF Urine Culture Indicated YES Micro Results Microbiology 01/22/19 Influenza Types A,B Antigen (ARMAND) - Final, Complete My Orders Orders - MYRIAM BERMUDEZ Cbc With Automated Diff (01/22/19 16:44) Comprehensive Metabolic Panel (01/22/19 16:44) BNP (01/22/19 16:44) Blood Culture (01/22/19 16:44) Ekg Tracing (01/22/19 16:44) O2 (01/22/19 16:44) Saline Lock/Iv-Start (01/22/19 16:44) Monitor-Rhythm Ecg Trace Only (01/22/19 16:44) Albuterol/Ipra Inhalation Soln (Duoneb I (01/22/19 16:45) Chest 1 View, Ap/Pa Only (01/22/19 16:44) Lactic Acid Analyzer (01/22/19 16:44) Svn Small Volume Nebulizer (01/22/19 16:44) Albuterol/Ipra Inhalation Soln (Duoneb I (01/22/19 17:15) Albuterol Pre-Mix Nebs (Rt) (Proventil (01/22/19 21:00) Albuterol Pre-Mix Nebs (Rt) (Proventil (01/22/19 17:12) Ua Culture If Indicated (01/22/19 18:11) Ns Iv 1000 Ml (Sodium Chloride 0.9%) (01/22/19 18:15) Influenza A And B Antigens (01/22/19 18:24) Methylprednisolone Sod Succ (Solu-Medrol (01/22/19 18:30) Methylprednisolone Sod Succ (Solu-Medrol (01/22/19 18:45) Urine Culture (01/22/19 18:20) General/Regular (01/22/19 Dinner) Medications Given in ED Vital Signs/I&O 01/22/19 01/22/19 01/22/19 01/22/19 16:41 16:59 17:17 18:17 Temp 97.0 Pulse 80 73 Resp 18 18 B/P (MAP) 142/78 (99) 142/60 (87) Pulse Ox 97 96 95 96 O2 Delivery Room Air Room Air Room Air Room Air Capillary Refill : Less Than 3 Seconds Blood Pressure Mean: 99 Progress Note : Time: 18:30 Progress Note I have seen and evaluated the patient. She has improved mildly after the hour- long breathing treatment and is no longer having audible wheezes. Her oxygen saturation is still maintaining above 90% on room air. Her work of breathing has improved. I believe that the patient's lactic acid is elevated due to her work of breathing prior to arrival given her normal white count. I have discussed the case with Dr. Chand and he agrees that except the patient to his services. Given the patient's history of heart failure and chronic kidney disease fluid resuscitation could be problematic. Dr. Chand recommends giving her 1 L of fluid IV and a rate of 120 on [address] floor and a gram or Rocephin prophylactically and waiting until cultures grow out. The the patient will be given Solu-Medrol IV due failed outpatient steroid therapy. The patient and the patient's daughter agree with plan of care and plans for admission. Diagnostic Imaging Diagonstic Imaging: Xray Plain Films/CT/US/NM/MRI: chest Comments NAME: GARCIAJAIDEN MED REC#: [id number] PT STATUS: ADM IN : 1955 PHYSICIAN: MYRIAM BERMUDEZ ADMIT DATE: 01/22/19/4TH Signed Date of Exam: 01/22/19 CHEST 1 VIEW, AP/PA ONLY INDICATION: Shortness of breath. COMPARISON: Comparison with 05/31/2018. FINDINGS: ET tube and NG tube have been removed. There is cardiomegaly. The lungs are well-aerated. No evidence of pulmonary edema. No pneumothorax or pleural effusion. No bony abnormality. IMPRESSION: Cardiomegaly without acute change. Dictated by: Dictated on workstation # [id number] Dict: 01/22/191712 Trans: 01/22/192120 Interpreted by: MATHEW LOVELACE MD Electronically signed by: MATHEW LOVELACE MD 01/22/192120 Reviewed: Reviewed by Me Departure Communication (Admissions) Time/Spoke to Admitting Phy: 18:30 Jagruti Time/Spoke to Consulting Phy: 18:48 [facility] voicemail. 2000: Discussed the case with Dr. Thomas and informed him of consultation. Impression Primary Impression: COPD exacerbation Disposition: ADMITTED INPATIENT Condition: Stable/Unchanged Admissions Decision to Admit Reason: Admit from ER (General) Decision to Admit/Date: Jan 22, 2019 Time/Decision to Admit Time: 18:30 Departure-Patient Inst. Referrals: YIFAN HANSEN MD (PCP/Family) Primary Care Physician MYRIAM BERMUDEZ Jan 22, 2019 17:56
[2019-01-22] MEDS ORDERED: NS IV 1000 ML 1,000 ML IV SCH (18:15)
--- NOTE | 2019-01-22 18:16 | NUR ---
RT TREATMENT FINISHED.
[2019-01-22 18:17] VITALS: BP 142/60
[2019-01-22 18:29] LABS: BILIRUBIN,URINE NEGATIVE (NEGATIVE); CLARITY,URINE CLEAR; COLOR,URINE YELLOW; GLUCOSE, URINE (UA) 1+ (NEGATIVE); KETONES,URINE 1+ (NEGATIVE); LEUKOCYTE ESTERASE ,URINE 2+ (NEGATIVE); NITRITE,URINE NEGATIVE (NEGATIVE); PH,URINE 5 (5-9); PROTEIN,URINE 1+ (NEGATIVE); UROBILINOGEN,URINE NORMAL (NORMAL)
[2019-01-22] MEDS: methylPREDNISolone 125 MG (Solu-MEDROL) VIAL IM ONE ×2 (18:38→18:45)
[2019-01-22 18:39] LABS: BACTERIA,URINE FEW /HPF
--- NOTE | 2019-01-22 18:43 | NUR ---
MENU GIVEN TO ORDER FOOD.
[2019-01-22] MEDS ORDERED: methylPREDNISolone 125 MG (Solu-MEDROL) VIAL IVP ONE (18:45)
--- NOTE | 2019-01-22 18:50 | NUR ---
FOOD TRAY ORDERED.
--- NOTE | 2019-01-22 18:54 | NUR ---
REPORT TO RADHA.
[2019-01-22] MEDS ORDERED: cefTRIAXone FOR IV USE 1,000 MG in WATER (STERILE) FOR INJECTION 10 ML IV ONE (19:00)
[2019-01-22] MEDS ORDERED: cefTRIAXone 1,000 MG IV (ROCEPHIN) VIAL ONE (19:23)
[2019-01-22] MEDS ORDERED: WATER (STERILE) FOR INJECTION 10 ML ONE (19:23)
[2019-01-22 20:15] VITALS: BP 156/61
--- NOTE | 2019-01-22 20:15 | NUR ---
JAIDEN ZELAYA admitted to room 413-1, with an admitting diagnosis of COPD EXACERBATION, on 01/22/19 from ED via WHEELCHAIR, accompanied by HOSPITAL STAFF. JAIDEN ZELAYA introduced to surroundings, call light, bed controls, phone, TV, temperature control, lights, meal times, smoking policy, visitor policy, side rail policy, bathrooms and showers. Patient Rights given to patient in the handbook.JAIDEN ZELAYA verbalizes understanding that [facility] is not responsible for the loss or damage to any personal effects or valuables that are kept in the patients posession during their hospitalization. JAIDEN ZELAYA verbalizes understanding of Interdisciplinary Patient Education. Patient and/or family were informed about the Rapid Response Team and its purpose.
[2019-01-22] MEDS ORDERED: CATHETER FLUSH 10 ML SYR IV PRN (20:30)
[2019-01-22] MEDS ORDERED: RT-ALBUTEROL SULF 2.5 MG/3 ML PRE-MIX VIAL INH SCH (21:00)
[2019-01-22] MEDS ORDERED: RT-ALBUTEROL/IPRATROPIUM 3 ML (DUONEB) VIAL ONE (21:00)
[2019-01-22] MEDS: NS IV 1000 ML 1,000 ML IV SCH (21:07)
[2019-01-22] MEDS ORDERED: RT-ALBUTEROL/IPRATROPIUM 3 ML (DUONEB) VIAL INH PRN (22:15)
[2019-01-23] VITALS: BP 148/82
[2019-01-23] MEDS: methylPREDNISolone 125 MG (Solu-MEDROL) VIAL IV SCH ×2 (00:45→05:25)
[2019-01-23] MEDS: RT-ALBUTEROL/IPRATROPIUM 3 ML (DUONEB) VIAL INH SCH ×6 (01:37→23:17)
[2019-01-23 04:00] VITALS: BP 172/78
--- NOTE | 2019-01-23 05:01 | NUR ---
RECEIVED CALL FROM ICU HAND STRIPPER STATING THAT PATIENT IS RUNNING A-FIB. DISCUSSED WITH PATIENT AND PATIENT STATES THAT SHE IS "PRETTY MUCH ALWAYS IN A-FIB". WILL CONTINUE TO MONITOR.
[2019-01-23] MEDS: NS IV 1000 ML 1,000 ML IV SCH ×4 (05:25→23:46)
[2019-01-23 06:21] LABS: BASOPHILS % (AUTO) 0 % (0-10); EOSINOPHILS % (AUTO) 0 % (0-10); HEMATOCRIT 39 % (35-52); HEMOGLOBIN 13.1 G/DL (11.5-16.0); LYMPHOCYTES % (AUTO) 13 % (12-44); MEAN CORPUSCULAR HEMOGLOBIN 28 PG (25-34); MEAN CORPUSCULAR HGB CONC 33 G/DL (32-36); MEAN CORPUSCULAR VOLUME 85 FL (80-99); MEAN PLATELET VOLUME 11.8 FL (7.4-10.4); MONOCYTES # (AUTO) 0.1 X 10^3 (0.0-1.0); MONOCYTES % (AUTO) 1 % (0-12); NEUTROPHILS # (AUTO) 7.1 X 10^3 (1.8-7.8); NEUTROPHILS % (AUTO) 87 % (42-75); PLATELET COUNT 216 10^3/uL (130-400); RED CELL DISTRIBUTION WIDTH 13.7 % (10.0-14.5); WHITE BLOOD COUNT 8.3 10^3/uL (4.3-11.0)
[2019-01-23 06:25] LABS: ALBUMIN 3.7 GM/DL (3.2-4.5); BILIRUBIN,TOTAL 0.3 MG/DL (0.1-1.0); CALCIUM 9.5 MG/DL (8.5-10.1); CREATININE SERUM 0.97 MG/DL (0.60-1.30); POTASSIUM 3.4 MMOL/L (3.6-5.0); TOTAL PROTEIN 6.1 GM/DL (6.4-8.2)
[2019-01-23 06:31] LABS: BAND NEUTROPHILS 2 %; BASOPHILS % (MANUAL) 0 %; EOSINOPHILS % (MANUAL) 0 %; LYMPHOCYTES % (MANUAL) 8 %; METAMYELOCYTES % 1 %; MONOCYTES % (MANUAL) 1 %; NEUTROPHILS % (MANUAL) 88 %; POIKILOCYTOSIS SLIGHT
[2019-01-23 06:32] LABS: ELLIPT/OVALOCYTES SLIGHT
[2019-01-23] MEDS ORDERED: KCL 20 MEQ TAB (K-DUR) PO NR (07:45)
--- NOTE | 2019-01-23 07:51 | Pulmonary Consultation ---
History of Present Illness History of Present Illness Date of Consultation 01/23/19 07:45 Time Seen by Provider: 07:45 Date of Admission Allergies and Home Medications Allergies Coded Allergies: Penicillins (Verified Allergy, Unknown, 03/12/17) Sulfa (Sulfonamide Antibiotics) (Verified Allergy, Unknown, 03/12/17) adhesive tape (Verified Allergy, Unknown, 03/12/17) Home Medications Albuterol Sulfate 1 Puff Puff, 1 PUFF INH Q6H PRN for SHORTNESS OF BREATH, ( Reported) Amlodipine Besylate 10 Mg Tablet, 10 MG PO DAILY, (Reported) Apixaban 5 Mg Tablet, 5 MG PO BID, (Reported) Aspirin 81 Mg Tablet.dr, 81 MG PO DAILY, (Reported) Atorvastatin Calcium 40 Mg Tablet, 40 MG PO HS, (Reported) Budesonide 0.5 Mg/2 Ml Ampul.neb, 0.5 MG INH RTBID Prescribed by: MATHEW DENNEY on 06/13/181456 Carvedilol 12.5 Mg Tablet, 25 MG PO BID Prescribed by: MATHEW DENNEY on 06/13/181456 Cetirizine HCl 10 Mg Tablet, 10 MG PO DAILY, (Reported) Clopidogrel Bisulfate 75 Mg Tablet, 75 MG PO DAILY, (Reported) Fluticasone Propionate 16 Gm [place].susp, 2 SPRAY NS DAILY, (Reported) Fluticasone/Salmeterol 1 Each Blst.w.dev, 1 PUFF INH BID, (Reported) Hydrochlorothiazide 25 Mg Tablet, 25 MG PO DAILY Prescribed by: MATHEW DENNEY on 06/13/181456 Ibuprofen 800 Mg Tablet, 800 MG PO TID PRN for PAIN-MILD, (Reported) Isosorbide Mononitrate 60 Mg Tab, 60 MG PO DAILY Prescribed by: MATHEW DENNEY on 06/13/181456 Montelukast Sodium 10 Mg Tablet, 10 MG PO DAILY, (Reported) Nitroglycerin 0.4 Mg Tab.subl, 0.4 MG SL UD PRN for CHEST PAIN, (Reported) Omeprazole 20 Mg Capsule.dr, 20 MG PO DAILY, (Reported) LAST FILLED 10-24-17 #90 Prednisone 10 Mg Tab, 40 MG PO DAILY@0700 Prescribed by: MATHEW DENNEY on 06/13/181456 Spironolactone 25 Mg Tablet, 25 MG PO DAILY, (Reported) Zinc Oxide 28 Gm Oint, 0 GM TOP TID Prescribed by: MATHEW DENNEY on 06/13/18 3737 Zolpidem Tartrate 10 Mg Tablet, 10 MG PO HS PRN for SLEEP, (Reported) Past Tbufywx-Hevjfq-Phxkat Hx Patient Social History Alcohol Use: Denies Use Recreational Drug Use: No Smoking Status: Never a Smoker Recent Foreign Travel: No Contact w/Someone Who Travel: No Recent Infectious Disease Expo: No Recent Hopitalizations: Yes (LUNG ISSUES-02/2017; dc'd from [facility] on 05/24/18) Immunizations Up To Date Tetanus Booster (TDap): Unknown Date of Pneumonia Vaccine: Oct 29, 2017 Date of Influenza Vaccine: Jul 29, 2018 Seasonal Allergies Seasonal Allergies: Yes Past Medical History Surgeries: Yes (biopsy left breast) Appendectomy, Hysterectomy, Tonsillectomy Respiratory: Yes Pneumonia, COPD Currently Using CPAP: Yes Currently Using BIPAP: No Cardiac: Yes (STENTS x 3) Coronary Artery Disease, High Cholesterol, Hypertension, Irregular Heartbeat Neurological: Yes Reproductive Disorders: No Sexually Transmitted Disease: No HIV/AIDS: No Genitourinary: Yes (Lt Nephrectomy) Bladder Infection, UTI-Chronic Gastrointestinal: Yes Gastroesophageal Reflux Musculoskeletal: Yes Arthritis, Chronic Back Pain Endocrine: Yes HEENT: Yes (blurred) Loss of Vision: Bilateral Hearing Impairment: Denies Cancer: No Psychosocial: Yes Anxiety, Depression Integumentary: No Blood Disorders: No Adverse Reaction/Blood Tranf: No Family Medical History Colon cancer G8 BROTHER Diabetes mellitus G8 BROTHER G8 SISTER FHx: heart disease 19 FATHER 19 MOTHER Myocardial infarction 19 FATHER G8 SISTER COPD Sepsis Event Evaluation Height, Weight, BMI Height: 5'5.00" Weight: 208lbs. 9.0oz. 94.999912cg; 34.7 BMI Method:Stated Exam Exam Vital Signs Date Time Temp Pulse Resp B/P (MAP) Pulse Ox O2 Delivery O2 Flow Rate FiO2 01/23/19 06:52 98 Nasal Cannula 3.00 01/23/19 04:00 96.9 69 18 172/78 (109) 99 Nasal Cannula 3.00 01/23/19 01:37 98 Nasal Cannula 3.00 01/23/19 00:57 50 01/23/19 00:00 97.6 64 22 148/82 (104) 98 Nasal Cannula 3.00 01/22/19 21:32 82 01/22/19 21:05 95 Room Air 01/22/19 21:05 71 95 21 01/22/19 20:15 97 Room Air 01/22/19 20:15 97.0 70 18 156/61 97 Room Air 01/22/19 20:02 97.0 70 18 156/61 (92) 98 Room Air 01/22/19 18:17 73 18 142/60 (87) 96 Room Air 01/22/19 17:17 95 Room Air 01/22/19 16:59 96 Room Air 01/22/19 16:41 97.0 80 18 142/78 (99) 97 Room Air I & O 01/23/19 07:00 Intake Total 2010 ml Output Total 200 ml Balance 1810 ml Height & Weight Height: 5'5.00" Weight: 208lbs. 9.0oz. 94.553725oc; 34.7 BMI Method:Stated Capillary Refill: Less Than 3 Seconds Results Lab Laboratory Tests 01/22/19 16:46 01/23/19 05:30 Assessment/Plan Assessment/Plan COPDAE -Check ABG -Solumedrol decrease to 40 Q6 -SVNS Q4 continue pulmicort BID -Oxygen Metabolic lactic acidosis -IVF -repeat LA Hypokalemia -replace -Check phos, and mg evevated BNP with Hx of diastolic dysfunction -repeat echo Hx of AFIB, and CAD DRISS FUNES DO Jan 23, 2019 07:51
[2019-01-23 08:00] VITALS: BP 152/96
[2019-01-23 08:01] LABS: MAGNESIUM 1.8 MG/DL (1.8-2.4); PHOSPHORUS 3.9 MG/DL (2.3-4.7)
[2019-01-23] MEDS ORDERED: CARV6.252 PO (09:26)
[2019-01-23] MEDS ORDERED: TRAM50TA2 PO (09:26)
[2019-01-23] MEDS ORDERED: HYDR25TA4 PO (09:26)
[2019-01-23] MEDS ORDERED: ONDA4TAB11 PO (09:26)
[2019-01-23] MEDS ORDERED: AZIT250T12 PO (09:30)
[2019-01-23] MEDS ORDERED: ISM60TCR PO (09:37)
[2019-01-23] MEDS ORDERED: PRD10T PO ×2 (09:37→09:38)
[2019-01-23] MEDS ORDERED: IPRA3AMP31 IH (09:41)
--- NOTE | 2019-01-23 09:42 | NUR ---
SPOKE WITH THE PATIENT AND SHE STATES SHE HAS A HELPER WHO SETS UP HER MEDICATIONS FOR HER. HER NAME IS BRIELLE ZELAYA AND HER NUMBER IS [phone]. THE PATIENT CALLED HER FROM HER CELL PHONE AND I SPOKE WITH HER TO VERIFY THE HOME MEDS. WE WENT OVER THE EXT MED HX AND SHE VERIFIED HOW THE PATIENT TAKES THEM. IN ADDITION TO WHAT IS SHOWN ON THE EXT MED HX [facility] FILLED: -READY FOR P/U NOW AND FILLED IN DEC: DUONEB Q4H PRN -10-28-18 IMDUR ER 60MG DAILY #90 -10-13-18 PREDNISONE 10MG 4 DAILY #120 (STATES SHE TAKES 1 TAB DAILY WHEN NOT ON A TAPER SCHEDULE) -07-21-18 ELIQUIS 5MG BID #60 (WORKER STATES SHE DOES TAKE THIS EVERYDAY, MIGHT GET SAMPLES?) ADDITIONALLY SHE HAS NITRO NEEDED AND A PROAIR INHALER NEEDED.
--- NOTE | 2019-01-23 10:17 | History & Physical-Hospitalist ---
History of Present Illness HPI/Chief Complaint Pt is a 63yoCF with a PMH of COPD, CAD, a-fib who presented to the ER with CC SOB. She states her symptoms started on 01/14. She has been seen by her PCP for this and was started on antibiotics and given a steroid injection on 01/21. Despite this she continued to worsen and last night she felt hse couldn't breathe and her wheezing increased. In the ER she was found to have normal oxygen levels but significant wheezing and was admitted for COPD exacerbation. She states she is still feeling poorly and quite short of breath today. She has a history of intubation from COPD exacerbation in 05/2018. This is her only intubation due to COPD. She denies a history of smoking but her was a smoker and smoked in the house. Source: patient Date Seen 01/23/19 Time Seen by a Provider: 10:06 Attending Physician Omid Chand MD PCP Rafita Love MD Referring Physician Date of Admission Jan 22, 2019 at 18:46 Home Medications & Allergies Home Medications Reviewed patient Home Medication Reconciliation performed by pharmacy medication reconciliations medication technician and/or nursing. Patients Allergies have been reviewed. Allergies Allergies Coded Allergies Penicillins (Verified Allergy, Unknown, 03/12/17) Sulfa (Sulfonamide Antibiotics) (Verified Allergy, Unknown, 03/12/17) adhesive tape (Verified Allergy, Unknown, 03/12/17) Past Fmkbuzo-Hoagig-[place] Hx Past Med/Social Hx: Reviewed Nursing Past Med/Soc Hx Patient Social History Employed/Student: retired Alcohol Use: Denies Use Recreational Drug Use: No Smoking Status: Never a Smoker (but significant secondhand smoke exposure) Recent Foreign Travel: No Contact w/other who traveled: No Recent Hopitalizations: Yes (LUNG ISSUES-02/2017; dc'd from [facility] on 05/24/18) Recent Infectious Disease Expo: No Immunizations Up To Date Tetanus Booster (TDap): Unknown Date of Pneumonia Vaccine: Oct 29, 2017 Date of Influenza Vaccine: Jul 29, 2018 Seasonal Allergies Seasonal Allergies: Yes Past Medical History Surgeries: Appendectomy, Hysterectomy, Nephrectomy, Tonsillectomy Respiratory: Asthma, COPD, Sleep Apnea Currently Using CPAP: Yes Currently Using BIPAP: No Cardiac: Coronary Artery Disease, High Cholesterol, Hypertension, Irregular Heartbeat Reproductive: No Sexually Transmitted Disease: No HIV/AIDS: No Genitourinary: Bladder Infection, UTI-Chronic Gastrointestinal: Gastroesophageal Reflux Musculoskeletal: Arthritis, Chronic Back Pain Loss of Vision: Bilateral Hearing Impairment: Denies Psychosocial: Anxiety, Depression History of Blood Disorders: No Adverse Reaction to Blood [place]: No Family History Reviewed Nursing Family Hx Colon cancer G8 BROTHER Diabetes mellitus G8 BROTHER G8 SISTER FHx: heart disease 19 FATHER 19 MOTHER Myocardial infarction 19 FATHER G8 SISTER COPD Review of Systems Constitutional: No chills, No fever; weakness Respiratory: cough, dyspnea on exertion, short of breath, wheezing Cardiovascular: No chest pain, No edema, No palpitations Gastrointestinal: No abdominal pain, No constipation, No diarrhea; loss of appetite; No nausea, No vomiting Genitourinary: decreased output; No dysuria Musculoskeletal: no symptoms reported Skin: no symptoms reported Psychiatric/Neurological: No Symptoms Reported Physical Exam Physical Exam Vital Signs Vital Signs - First Documented 01/22/19 01/23/19 16:41 00:00 Temp 97.0 Pulse 80 Resp 18 B/P (MAP) 142/78 (99) Pulse Ox 97 O2 Delivery Room Air O2 Flow Rate 3.00 Capillary Refill : Less Than 3 Seconds Height, Weight, BMI Height: 5'5.00" Weight: 208lbs. 9.0oz. 94.791102iw; 34.7 BMI Method:Stated General Appearance: No Apparent Distress, Obese HEENT: PERRL/EOMI, Moist Mucous Membranes; No Scleral Icterus (L), No Scleral Icterus (R) Neck: Normal Inspection, Supple; No Thyromegaly Respiratory: No No Accessory Muscle Use, No No Respiratory Distress; Wheezing Cardiovascular: Regular Rate, Rhythm, No JVD, No Murmur, Normal Peripheral Pulses Gastrointestinal: Normal Bowel Sounds, Non Tender, Soft Extremity: No Calf Tenderness, No Pedal Edema Neurologic/Psychiatric: Alert, Oriented x3 Skin: Normal Color, Warm/Dry Results Results/Procedures Labs Laboratory Tests 01/22/19 16:46 01/23/19 05:30 Patient resulted labs reviewed. Imaging: Reviewed Imaging Report Imaging Date of Exam: 01/22/19 CHEST 1 VIEW, AP/PA ONLY INDICATION: Shortness of breath. COMPARISON: Comparison with 05/31/2018. FINDINGS: ET tube and NG tube have been removed. There is cardiomegaly. The lungs are well-aerated. No evidence of pulmonary edema. No pneumothorax or pleural effusion. No bony abnormality. IMPRESSION: Cardiomegaly without acute change. Assessment/Plan Admission Diagnosis COPD Exacerbation Admission Status: Inpatient Order (span 2 midnights) Reason for Inpatient Admission: failed outpatient management Diagnosis/Problems Diagnosis/Problems (1) COPD exacerbation Status: Chronic Assessment & Plan: Pulm consulted, appreciate recs Continue steroids, SVNs Titrate sats to keep oxygen >90 Check a procalcitonin to help determine need for further abx (2) CAD (coronary artery disease) Status: Chronic Assessment & Plan: Resume home meds Qualifiers: Coronary Disease-Associated Artery/Lesion type: [place] artery [place] vs. transplanted heart: [place] heart Associated angina: without angina Qualified Codes: I25.10 - Atherosclerotic heart disease of [place] coronary artery without angina pectoris (3) Essential (primary) hypertension Status: Chronic Assessment & Plan: Resume home medications (4) Diastolic CHF Status: Acute Assessment & Plan: No acute exacerbation Continue home meds Qualifiers: Heart failure chronicity: chronic Qualified Codes: I50.32 - Chronic diastolic (congestive) heart failure Clinical Quality Measures DVT/VTE Risk/Contraindication: Risk Factor Score Per Nursin RFS Level Per Nursing on Admit: 4+=Very High SANDRA VICTOR MD Jan 23, 2019 10:17
[2019-01-23] MEDS: RT-BUDESONIDE NEBS 0.5 MG/2ML (PULMICORT) AMP INH SCH ×2 (10:25→23:19)
[2019-01-23] MEDS: FLUTICASONE NASAL SPRAY (FLONASE) 16 GM BTL NS SCH (11:47)
[2019-01-23] MEDS: methylPREDNISolone 40 MG/ML (Solu-MEDROL) VIAL IV SCH ×3 (11:49→23:46)
[2019-01-23 12:00] VITALS: BP 124/64
--- NOTE | 2019-01-23 12:35 | Physical Therapy Evaluation ---
PT Evaluation-General Medical Diagnosis Admission Date Jan 22, 2019 at 18:46 Medical Diagnosis: COPD exac Onset Date: Jan 22, 2019 Therapy Diagnosis Therapy Diagnosis: weakness; abn gait Height/Weight Height (Feet): 5 Height (Inches): 5.00 Weight (Pounds): 208 Weight (Ounces): 9.0 Precautions Precautions/Isolations: Standard Precautions Weight Bear Status Right Lower Extremity: Right Weight Bearing/Tolerated Left Lower Extremity: Left Weight Bearing/Tolerated Referral Physician: Magdalena Reason for Referral: Evaluation/Treatment Medical History Pertinent Medical History: Atrial Fib, CAD, COPD, CVA, GERD, HTN Additional Medical History anxiety, depression; second hand smoke Current History Admitted to hospital with COPD exac. Reviewed History: Yes Social History Home: Single Level Current Living Status: Spouse Entry Into Home: Stairs With Railing PT Steps Into Home: 3 Prior/Core FIM Prior Level of Function Therapy Code Descriptions/Definitions Functional [place] Measure: 0=Not Assessed/NA 4=Minimal Assistance 1=Total Assistance 5=Supervision or Setup 2=Maximal Assistance 6=Modified [place] 3=Moderate Assistance 7=Complete [place] Therapy Quality Codes: 6 Independent with activity with or without an assistive device 5 Patient requires set up or clean up by helper. Patient completes activity by themselves 4 Supervision or touching assist (CGA). [place] provide cues , steadying assist 3 The helper provides less than half the effort to complete the activity 2 The helper provides more than half the effort to complete the activity 1 Dependent. The helper does all the effort to complete an activity 7 Patient refused to complete or attempt activity 9 The patient did not perform the activity before the current illness or injury 88 Not attempted due to Medical conditions or safety concerns Functional Abilities and Goals: Independent: Patient completed the activities by him/herself, with or without an assistive device, with no assistance from a helper. Needed Some Help: Patient needed partial assistance from another person to complete activities. Dependent: A helper completed the activities for the patient. Unknown: Not Applicable: Bed Mobility: 7 Transfers (B,C,W/C) (FIM): 7 Gait: 7 Stairs: 6 Indoor Mobility (Ambulation): Independent Stairs: Independent Pt reports she had help with meals and cleaning PT Evaluation-Current Subjective Agrees to PT, but reprorts she is tired. Pain Numeric Pain Scale: 0-No Pain Location: No Pain Reported Objective Patient Orientation: Person, Place, Time, Situation Problem Solving: Fair Attachments: Oxygen, IV ROM/Strength ROM Lower Extremities WFL Strength Lower Extremities grossly 4-/5 throughout Integumentary/Posture Integumentary Refer to nursing notes for assessment Bowel Incontinence: No Bladder Incontinence: No Posture WFL Neuromuscular (Tone, Coordination, Reflexes) intact and functional Sensory Vision: Functional Hearing: Functional Hand Dominance: Right Sensation Right Lower Extremit: Intact Sensation Left Lower Extremity: Intact Transfers Therapy Code Descriptions/Definitions Functional [place] Measure: 0=Not Assessed/NA 4=Minimal Assistance 1=Total Assistance 5=Supervision or Setup 2=Maximal Assistance 6=Modified [place] 3=Moderate Assistance 7=Complete [place] Transfers (B, C, W/C) (FIM): 4 Supine to/from Sit: 5 Sit to/from Stand: 4 (CGA for safety) CGA and light cues for safety Gait Mode of Locomotion: Walk Anticipated Mode of Locomotion: Walk Gait (FIM): 2 Gait Assistive Device: FWW Comments/Gait Description Pt walked 5 steps to chair with FWW with CGA. Balance Sitting Static: Good Sitting Dynamic: Good Standing Static: Fair Standing Dynamic: Fair Treatment Up in chair post treatment with needs met. Oxygen in situ Assessment/Needs Pt presents post exac of COPD with decreased functional strength and mobility. She will beneift from skilled PT to address functional mobility to allow her to return home as before. Rehab Potential: Good PT Care Home Goals Ice Maker Goals PT Care Home Goals Time Frame: Jan 30, 2019 Transfers (B,C,W/C) (FIM): 7 Gait (FIM): 6 Gait distance (FIM): 3=150 ft Gait Assistive Device: FWW PT Plan Problem List Problem List: Activity Tolerance, Functional Strength, Safety, Balance, Gait, Transfer, Bed Mobility Treatment/Plan Treatment Plan: Continue Plan of Care Treatment Plan: Bed Mobility, Education, Functional Activity Taiwo, Functional Strength, Gait, Safety, Therapeutic Exercise, Transfers Treatment Duration: Jan 30, 2019 Frequency: 6 times per week Estimated Hrs Per Day: .25 hour per day Patient and/or Family Agrees t: Yes Safety Risks/Education Patient Education: Safety Issues Teaching Recipient: Patient Teaching Methods: Discussion Response to Teaching: Reinforcement Needed Time/GCodes Time In: 1050 Time Out: 1108 Total Billed Treatment Time: 18 Total Billed Treatment visit EVM 18 ARNALDO BARRIOS PT Jan 23, 2019 12:35
[2019-01-23 15:00] LABS: ABG BASE EXCESS -0.2 MMOL/L (-2.5-2.5); ABG OXYGEN SATURATION 97 % (94-100); ABG PCO2 36 MMHG (35-45); ABG PH 7.43 (7.37-7.43); ABG PO2 81 MMHG (79-93); ABG TCO2 24.7 MMOL/L (21.0-31.0)
--- NOTE | 2019-01-23 15:00 | NUR ---
Report received from Kaye MOSES. Patient laying in bed resting at this time, call light within reach. Will continue to monitor.
[2019-01-23 15:01] LABS: INSPIRED O2 3L; PATIENT TEMP 97.8; VENTILATOR NO
[2019-01-23 15:47] VITALS: BP 143/74
[2019-01-23 19:02] VITALS: BP 142/69
[2019-01-23] MEDS: APIXABAN 5 MG (ELIQUIS) TABLET PO SCH (20:27)
[2019-01-23] MEDS: MONTELUKAST 10 MG (SINGULAIR) TAB PO SCH (20:27)
[2019-01-23] MEDS: ATORVASTATIN 40 MG (LIPITOR) TABLET PO SCH (20:27)
[2019-01-23] MEDS: CARVEDILOL 6.25 MG (COREG) TAB PO SCH (20:27)
[2019-01-23] MEDS: RT-ADVAIR HFA 115/21 MCG PER PUFF IH SCH (23:19)
[2019-01-24] VITALS: BP 168/75
[2019-01-24] MEDS: RT-ALBUTEROL/IPRATROPIUM 3 ML (DUONEB) VIAL INH SCH ×6 (02:42→21:52)
[2019-01-24 05:02] LABS: HEMOGLOBIN 12.8 G/DL (11.5-16.0); MEAN PLATELET VOLUME 12.1 FL (7.4-10.4); RED CELL DISTRIBUTION WIDTH 13.8 % (10.0-14.5); WHITE BLOOD COUNT 11.4 10^3/uL (4.3-11.0)
[2019-01-24 05:22] LABS: BUN/CREATININE RATIO 30; CALCIUM 9.1 MG/DL (8.5-10.1); CARBON DIOXIDE 20 MMOL/L (21-32); CHLORIDE 110 MMOL/L (98-107); CREATININE SERUM 0.82 MG/DL (0.60-1.30); GFR ESTIMATED > 60; GLUCOSE 211 MG/DL (70-105); MAGNESIUM 1.9 MG/DL (1.8-2.4); PHOSPHORUS 2.1 MG/DL (2.3-4.7); POTASSIUM 3.5 MMOL/L (3.6-5.0); SODIUM 142 MMOL/L (135-145)
[2019-01-24] MEDS: methylPREDNISolone 40 MG/ML (Solu-MEDROL) VIAL IV SCH ×4 (05:34→23:40)
[2019-01-24] MEDS: RT-BUDESONIDE NEBS 0.5 MG/2ML (PULMICORT) AMP INH SCH ×2 (07:04→21:52)
[2019-01-24] MEDS: RT-ADVAIR HFA 115/21 MCG PER PUFF IH SCH ×2 (07:04→21:52)
--- NOTE | 2019-01-24 07:40 | Pulmonary Progress Note ---
Subjective Time Seen by a Provider: 07:45 Subjective/Events-last exam No complications noted. Sepsis Event Evaluation Height, Weight, BMI Height: 5'5.00" Weight: 209lbs. 5.0oz. 94.030460uv; 34.7 BMI Method:Stated Focused Exam Lactate Level 01/22/19 19:10: Lactic Acid Level 3.09*H 01/23/19 08:00: Lactic Acid Level 2.20*H 01/23/19 10:12: Lactic Acid Level 2.76*H Exam Exam Vital Signs Date Time Temp Pulse Resp B/P (MAP) Pulse Ox O2 Delivery O2 Flow Rate FiO2 01/24/19 07:05 98 Nasal Cannula 3.00 01/24/19 02:42 95 Nasal Cannula 3.00 01/24/19 01:00 76 01/24/19 00:00 98.9 74 20 168/75 (106) 98 Nasal Cannula 3.00 01/23/19 23:17 96 Nasal Cannula 3.00 01/23/19 20:00 Nasal Cannula 3.00 01/23/19 19:02 98.0 65 20 142/69 (93) 97 Nasal Cannula 3.00 01/23/19 19:01 74 01/23/19 18:28 95 Nasal Cannula 3.00 01/23/19 15:47 97.8 70 18 143/74 (97) 96 Nasal Cannula 3.00 01/23/19 14:29 97 Nasal Cannula 3.00 01/23/19 13:25 68 01/23/19 12:00 99.5 68 18 124/64 (84) 98 Nasal Cannula 3.00 01/23/19 10:26 Nasal Cannula 3.00 01/23/19 08:00 97.8 65 18 152/96 (114) 97 Nasal Cannula 3.00 01/23/19 08:00 96 Room Air I & O 01/24/19 06:59 Intake Total 3185 ml Output Total 875 ml Balance 2310 ml Height & Weight Height: 5'5.00" Weight: 209lbs. 5.0oz. 94.037665vu; 34.7 BMI Method:Stated General Appearance: No Apparent Distress, Obese HEENT: PERRL/EOMI, Moist Mucous Membranes; No Scleral Icterus (L), No Scleral Icterus (R) Neck: Normal Inspection, Supple; No Thyromegaly Respiratory: No No Accessory Muscle Use, No No Respiratory Distress; Wheezing Cardiovascular: Regular Rate, Rhythm, No JVD, No Murmur, Normal Peripheral Pulses Capillary Refill: Less Than 3 Seconds Gastrointestinal: normal bowel sounds, non tender, soft, no organomegaly, no pulsatile mass Extremity: No Calf Tenderness, No Pedal Edema Neurologic/Psychiatric: Alert, Oriented x3 Skin: Normal Color, Warm/Dry Results Lab Laboratory Tests 01/22/19 16:46 01/23/19 05:30 01/24/19 04:15 Assessment/Plan Assessment/Plan COPDAE -Solumedrol decrease to 40 Q6 -SVNS Q4 continue pulmicort BID -Oxygen Metabolic lactic acidosis -IVF -repeat LA Hypokalemia -replace -Check phos, and mg evevated BNP with Hx of diastolic dysfunction -repeat echo Hx of AFIB, and CAD DRISS FUNES DO Jan 24, 2019 07:40
[2019-01-24] MEDS ORDERED: POTASSIUM PHOSPHATE INJ 30 MM in NS (IVPB) 250 ML IV ONE (07:45)
[2019-01-24 08:00] VITALS: BP 168/74
[2019-01-24] MEDS ORDERED: PANTOPRAZOLE 20 MG TABLET (PROTONIX) PO PRN (09:00)
--- NOTE | 2019-01-24 09:12 | Progress Note-Hospitalist ---
Subjective HPI/CC On Admission Date Seen by Provider: Jan 24, 2019 Time Seen by Provider: 09:07 Pt is a 63yoCF with a PMH of COPD, CAD, a-fib who presented to the ER with CC SOB. She states her symptoms started on 01/14. She has been seen by her PCP for this and was started on antibiotics and given a steroid injection on 01/21. Despite this she continued to worsen and last night she felt hse couldn't breathe and her wheezing increased. In the ER she was found to have normal oxygen levels but significant wheezing and was admitted for COPD exacerbation. She states she is still feeling poorly and quite short of breath today. She has a history of intubation from COPD exacerbation in 05/2018. This is her only intubation due to COPD. She denies a history of smoking but her was a smoker and smoked in the house. Subjective/Events-last exam Pt reports feeling poor and having difficulty breathing. Up all night coughing. Focused Exam Lactate Level 01/22/19 19:10: Lactic Acid Level 3.09*H 01/23/19 08:00: Lactic Acid Level 2.20*H 01/23/19 10:12: Lactic Acid Level 2.76*H Objective Exam Vital Signs Vital Signs Date Time Temp Pulse Resp B/P (MAP) Pulse Ox O2 Delivery O2 Flow Rate FiO2 01/24/19 08:00 96.6 80 20 168/74 (105) 93 Nasal Cannula 3.00 01/22/19 21:05 21 Capillary Refill : Less Than 3 Seconds General Appearance: No Apparent Distress, Chronically ill, Obese HEENT: No Scleral Icterus (L), No Scleral Icterus (R) Neck: No Thyromegaly Respiratory: No No Accessory Muscle Use, No No Respiratory Distress; Wheezing Cardiovascular: Regular Rate, Rhythm, No JVD, No Murmur, Normal Peripheral Pulses Gastrointestinal: Normal Bowel Sounds, Non Tender, Soft Neurologic/Psychiatric: Alert, Oriented x3 Results/Procedures Lab Laboratory Tests 01/24/19 04:15 Patient resulted labs reviewed. Imaging: Reviewed Imaging Report Assessment/Plan Assessment and Plan Assess & Plan/Chief Complaint COPD Exacerbation Diagnosis/Problems Diagnosis/Problems (1) COPD exacerbation Status: Chronic Assessment & Plan: Pulm consulted, appreciate recs Continue steroids, SVNs Titrate sats to keep oxygen >90- currently off oxygen Procalcitonin negative- no indication for further abx Will add Mucinex (2) CAD (coronary artery disease) Status: Chronic Assessment & Plan: Continue home meds Qualifiers: Coronary Disease-Associated Artery/Lesion type: [place] artery [place] vs. transplanted heart: [place] heart Associated angina: without angina Qualified Codes: I25.10 - Atherosclerotic heart disease of [place] coronary artery without angina pectoris (3) Essential (primary) hypertension Status: Chronic Assessment & Plan: Cont home medications (4) Diastolic CHF Status: Acute Assessment & Plan: No acute exacerbation Continue home meds Qualifiers: Heart failure chronicity: chronic Qualified Codes: I50.32 - Chronic diastolic (congestive) heart failure Clinical Quality Measures DVT/VTE Risk/Contraindication: Risk Factor Score Per Nursin RFS Level Per Nursing on Admit: 4+=Very High SANDRA VICTOR MD Jan 24, 2019 09:12
[2019-01-24] MEDS ORDERED: guaiFENesin (MUCINEX) 600 MG TAB PO ONE ×2 (09:14→09:15)
[2019-01-24] MEDS: NS IV 1000 ML 1,000 ML IV SCH ×2 (09:19→22:28)
[2019-01-24] MEDS: CARVEDILOL 6.25 MG (COREG) TAB PO SCH (09:21)
[2019-01-24] MEDS: HYDROCHLOROTHIAZIDE 25 MG (HCTZ) TAB PO SCH (09:21)
[2019-01-24] MEDS: ISOSORBIDE MONONITRATE 60 MG (IMDUR) TAB PO SCH (09:21)
[2019-01-24] MEDS: amLODIPine 10 MG (NORVASC) TAB PO SCH (09:21)
[2019-01-24] MEDS: CLOPIDOGREL 75 MG (PLAVIX) TABLET PO SCH (09:21)
[2019-01-24] MEDS: APIXABAN 5 MG (ELIQUIS) TABLET PO SCH ×2 (09:21→20:51)
[2019-01-24] MEDS: LORATADINE (CLARITIN) 10 MG TAB PO SCH (09:21)
[2019-01-24] MEDS: SPIRONOLACTONE 25 MG (ALDACTONE) TAB PO SCH (09:21)
[2019-01-24] MEDS: FLUTICASONE NASAL SPRAY (FLONASE) 16 GM BTL NS SCH (09:22)
--- NOTE | 2019-01-24 09:25 | NUR ---
POTASSIUM PHOS X 1 BAG ORDERED.
--- NOTE | 2019-01-24 10:50 | NUR ---
DR. PERALTA NOTIFIED OF CONSULT.
--- NOTE | 2019-01-24 11:34 | Physical Therapy Daily Note ---
PT Daily Note-Current Subjective Patient agrees to PT. Patient is currently on RA. Mental Status Patient Orientation: Normal For Age Attachments: IV Transfers Therapy Code Descriptions/Definitions Functional [place] Measure: 0=Not Assessed/NA 4=Minimal Assistance 1=Total Assistance 5=Supervision or Setup 2=Maximal Assistance 6=Modified [place] 3=Moderate Assistance 7=Complete [place] Therapy Quality Codes: 6 Independent with activity with or without an assistive device 5 Patient requires set up or clean up by helper. Patient completes activity by themselves 4 Supervision or touching assist (CGA). [place] provide cues , steadying assist 3 The helper provides less than half the effort to complete the activity 2 The helper provides more than half the effort to complete the activity 1 Dependent. The helper does all the effort to complete an activity 7 Patient refused to complete or attempt activity 9 The patient did not perform the activity before the current illness or injury 88 Not attempted due to Medical conditions or safety concerns Transfers (B, C, W/C) (FIM): 6 [place] Supine to/from Sit: 6 Sit to/from Stand: 6 Bed to/from Chair: 6 Weight Bearing Right Lower Extremity: Right Weight Bearing/Tolerated Left Lower Extremity: Left Weight Bearing/Tolerated Gait Training Gait (FIM): 6 Distance (FIM): 3=150 ft Distance: 180' Gait Level of Assist: 6 Gait Assistive Device: FWW FWW for energy conservation due to increase SOA with activity Assessment Patient SAO2 maintained >90% on RA with activity. Patient is up in recliner with needs met. PT Detention Goals Aquatics Director Goals PT Detention Goals Time Frame: Jan 30, 2019 Transfers (B,C,W/C) (FIM): 7 Gait (FIM): 6 Gait distance (FIM): 3=150 ft Gait Assistive Device: FWW PT Plan Treatment/Plan Treatment Plan: Continue Plan of Care Treatment Plan: Bed Mobility, Education, Functional Activity Taiwo, Functional Strength, Gait, Safety, Therapeutic Exercise, Transfers Treatment Duration: Jan 30, 2019 Frequency: 6 times per week Estimated Hrs Per Day: .25 hour per day Patient and/or Family Agrees t: Yes Time/GCodes Time In: 1105 Time Out: 1117 Total Billed Treatment Time: 12 Total Billed Treatment 1 visit FA 12 min SOLEDAD JAMES PT Jan 24, 2019 11:34
--- NOTE | 2019-01-24 12:00 | Consultation-Cardiology ---
HPI-Cardiology Cardiology Consultation Date of Consultation 01/24/19 Date of Admission Time Seen by Provider: 11:54 Indication: atrial fibrillation bradycardia HPI 63-year-old lady with extensive cardiac history including coronary artery disease, atrial fibrillation, COPD. Has been having increasing shortness of breath for the past 2 weeks. Started on antibiotic without improvement, was admitted and started on antibiotic in the hospital and IV steroid, still having significant wheezing and shortness of breath. Fatigue and loss of energy. Was noted to have episodes of bradycardia on telemetry. She denied any syncope, admit having some dizziness and shortness of breath. No palpitation. Has been compliant with her medications. No fever or chills. Has been having cough with difficulty producing sputum Home Medications & Allergies Allergies: Coded Allergies: Penicillins (Verified Allergy, Unknown, 03/12/17) Sulfa (Sulfonamide Antibiotics) (Verified Allergy, Unknown, 03/12/17) adhesive tape (Verified Allergy, Unknown, 03/12/17) Home Medication List Reviewed: Yes [id number] Hx Patient Social History Marital Status: Employed/Student: retired Alcohol Use: Denies Use Recreational Drug Use: No Smoking Status: Never a Smoker (but significant secondhand smoke exposure) Recent Foreign Travel: No Recent Infectious Disease Expo: No Recent Hopitalizations: Yes (LUNG ISSUES-02/2017; dc'd from [facility] on 05/24/18) Immunizations Up To Date Tetanus Booster (TDap): Unknown Date of Pneumonia Vaccine: Oct 29, 2017 Date of Influenza Vaccine: Jul 29, 2018 Past Medical History past medical history as described Family Medical History Significant Family History: COPD Family History: Colon cancer G8 BROTHER Diabetes mellitus G8 BROTHER G8 SISTER FHx: heart disease 19 FATHER 19 MOTHER Myocardial infarction 19 FATHER G8 SISTER Review of Systems Constitutional: see HPI, malaise, weakness EENTM: see HPI, no symptoms reported Respiratory: see HPI, wheezing Cardiovascular: see HPI, edema, palpitations Gastrointestinal: no symptoms reported, see HPI Genitourinary: no symptoms reported, see HPI Musculoskeletal: see HPI Skin: no symptoms reported, see HPI Psychiatric/Neurological: No Symptoms Reported, See HPI Reviewed Test Results Reviewed Test Results Lab Laboratory Tests Test 01/23/19 14:40 01/24/19 04:15 Range/Units Blood Gas Puncture Site NA Blood Gas Patient Temperature 97.8 Arterial Blood pH 7.43 7.37-7.43 Arterial Blood Partial Pressure CO2 36 35-45 MMHG Arterial Blood Partial Pressure O2 81 79-93 MMHG Arterial Blood HCO3 24 23-27 MMOL/L Arterial Blood Total CO2 24.7 21.0-31.0 MMOL/L Arterial Blood Oxygen Saturation 97 94-100 % Arterial Blood Base Excess -0.2 -2.5-2.5 MMOL/L Doni Test NA Blood Gas Ventilator Setting NO Blood Gas Inspired Oxygen 3L White Blood Count 11.4 H 4.3-11.0 10^3/uL Red Blood Count 4.64 4.35-5.85 10^6/uL Hemoglobin 12.8 11.5-16.0 G/DL Hematocrit 40 35-52 % Mean Corpuscular Volume 86 80-99 FL Mean Corpuscular Hemoglobin 28 25-34 PG Mean Corpuscular Hemoglobin Concent 32 32-36 G/DL Red Cell Distribution Width 13.8 10.0-14.5 % Platelet Count 194 130-400 10^3/uL Mean Platelet Volume 12.1 H 7.4-10.4 FL Sodium Level 142 135-145 MMOL/L Potassium Level 3.5 L 3.6-5.0 MMOL/L Chloride Level 110 H 98-107 MMOL/L Carbon Dioxide Level 20 L 21-32 MMOL/L Anion Gap 12 5-14 MMOL/L Blood Urea Nitrogen 25 H 7-18 MG/DL Creatinine 0.82 0.60-1.30 MG/DL Estimat Glomerular Filtration Rate > 60 BUN/Creatinine Ratio 30 Glucose Level 211 H 70-105 MG/DL Calcium Level 9.1 8.5-10.1 MG/DL Phosphorus Level 2.1 L 2.3-4.7 MG/DL Magnesium Level 1.9 1.8-2.4 MG/DL Physical Exam Vital Signs Vital Signs - First Documented 01/22/19 01/23/19 16:41 00:00 Temp 97.0 Pulse 80 Resp 18 B/P (MAP) 142/78 (99) Pulse Ox 97 O2 Delivery Room Air O2 Flow Rate 3.00 Capillary Refill : Less Than 3 Seconds Height, Weight, BMI Height: 5'5.00" Weight: 209lbs. 5.0oz. 94.710333vh; 34.7 BMI Method:Stated General Appearance: No Apparent Distress, WD/WN, Moderate Distress Eyes: Bilateral Eye Normal Inspection, Bilateral Eye PERRL, Bilateral Eye EOMI HEENT: PERRL/EOMI, TMs Normal, Normal ENT Inspection, Pharynx Normal Neck: Full Range of Motion, Normal Inspection, Non Tender, Supple, Carotid Bruit Respiratory: Chest Non Tender, Crackles, Decreased Breath Sounds, Respiratory Distress, Rhonci, Wheezing Cardiovascular: No Edema, No Gallop, No JVD, Normal Peripheral Pulses, Systolic Murmur, Irregularly Irregular Gastrointestinal: Normal Bowel Sounds, No Organomegaly, No Pulsatile Mass, Non Tender, Soft Back: Normal Inspection, No CVA Tenderness, No Vertebral Tenderness Extremity: Normal Capillary Refill, Normal Inspection, Normal Range of Motion, Non Tender, No Calf Tenderness, No Pedal Edema Neurologic/Psychiatric: Alert, Oriented x3, No Motor/Sensory Deficits, Normal Mood/Affect Skin: Normal Color, Warm/Dry Lymphatic: No Adenopathy A/P-Cardiology Admission Diagnosis Chronic atrial fibrillation Bradycardia Coronary artery disease Hypertension COPD Assessment/Plan Shortness of breath, acute exacerbation of COPD, receiving steroids, still having active wheezing and dyspnea. Chronic persistent atrial fibrillation, maintained on Eliquis. Having episodes of bradycardia. I am planning to discontinue Coreg due to the bradycardia and her active wheezing. We can consider the use of selective beta-1 bhupinder such as Toprol if needed later. Severe COPD, history of recurrent exacerbation, managed by Dr. Thomas Echocardiogram showed severe left ventricular hypertrophy with normal systolic function, diastolic dysfunction. Coronary artery disease, history of multiple intervention, reporting having history of [address] Knapp in [place], maintained on Plavix History of PVCs was maintained on Coreg which was discontinued. Hypertension, monitor blood pressure, receiving amlodipine and lisinopril. We' ll consider adding Toprol if needed. Clinical Quality Measures DVT/VTE Risk/Contraindication: Risk Factor Score Per Nursin RFS Level Per Nursing on Admit: 4+=Very High RAJANI PERALTA MD Jan 24, 2019 12:00
--- NOTE | 2019-01-24 13:25 | NUR ---
ICU REPORTS AFIB RATE 30'S. STRIP PRINTED OUT. DR. VICTOR NOTIFIED. DR. PERALTA NOTIFIED. ORDER REC'D FROM DR. PERALTA TO PLACE ON CONTINUOS O2 @ 2L N/C. O2 ON. DENIES C/O.
[2019-01-24 16:35] VITALS: BP 162/92
[2019-01-24 20:30] VITALS: BP 160/83
[2019-01-24] MEDS: guaiFENesin (MUCINEX) 600 MG TAB PO SCH (20:51)
[2019-01-24] MEDS: MONTELUKAST 10 MG (SINGULAIR) TAB PO SCH (20:51)
[2019-01-24] MEDS: ATORVASTATIN 40 MG (LIPITOR) TABLET PO SCH (20:51)
[2019-01-24] MEDS ORDERED: ANTACID SUSP 30 ML UDC (MYLANTA) PO PRN (21:00)
[2019-01-24] MEDS ORDERED: ACETAMINOPHEN 325 MG TABLET PO PRN (21:00)
[2019-01-24] MEDS ORDERED: BISACODYL 10 MG SUPP (DULCOLAX) PR PRN (21:00)
[2019-01-24] MEDS ORDERED: ONDANSETRON 4 MG/2 ML (SDV) Z0FRAN IV PRN (21:00)
[2019-01-24] MEDS ORDERED: MILK OF MAGNESIA 400 MG/5 ML 30 ML UDC PO PRN (21:00)
[2019-01-24] MEDS: MELATONIN 3 MG TABLET PO PRN (22:27)
[2019-01-24 23:59] VITALS: BP 149/80
[2019-01-25] MEDS: RT-ALBUTEROL/IPRATROPIUM 3 ML (DUONEB) VIAL INH SCH ×6 (02:51→22:40)
[2019-01-25 04:22] LABS: HEMOGLOBIN 12.2 G/DL (11.5-16.0); MEAN PLATELET VOLUME 11.6 FL (7.4-10.4); WHITE BLOOD COUNT 9.6 10^3/uL (4.3-11.0)
[2019-01-25 04:42] LABS: BUN/CREATININE RATIO 28; CALCIUM 9.2 MG/DL (8.5-10.1); CARBON DIOXIDE 20 MMOL/L (21-32); CHLORIDE 112 MMOL/L (98-107); CREATININE SERUM 0.85 MG/DL (0.60-1.30); GFR ESTIMATED > 60; GLUCOSE 189 MG/DL (70-105); MAGNESIUM 1.9 MG/DL (1.8-2.4); PHOSPHORUS 3.1 MG/DL (2.3-4.7); SODIUM 141 MMOL/L (135-145)
[2019-01-25] MEDS: methylPREDNISolone 40 MG/ML (Solu-MEDROL) VIAL IV SCH (06:07)
[2019-01-25] MEDS: NS IV 1000 ML 1,000 ML IV SCH (06:10)
[2019-01-25] MEDS: RT-ADVAIR HFA 115/21 MCG PER PUFF IH SCH ×2 (06:59→19:16)
[2019-01-25] MEDS: RT-BUDESONIDE NEBS 0.5 MG/2ML (PULMICORT) AMP INH SCH ×2 (06:59→19:16)
--- NOTE | 2019-01-25 07:02 | Pulmonary Progress Note ---
Subjective Time Seen by a Provider: 06:59 Subjective/Events-last exam Pt is doing better Sepsis Event Evaluation Height, Weight, BMI Height: 5'5.00" Weight: 208lbs. 3.2oz. 94.774662mj; 34.7 BMI Method:Stated Focused Exam Lactate Level 01/22/19 19:10: Lactic Acid Level 3.09*H 01/23/19 08:00: Lactic Acid Level 2.20*H 01/23/19 10:12: Lactic Acid Level 2.76*H Exam Exam Vital Signs Date Time Temp Pulse Resp B/P (MAP) Pulse Ox O2 Delivery O2 Flow Rate FiO2 01/25/19 02:52 97 Nasal Cannula 2.00 01/25/19 01:00 71 01/24/19 23:59 97.8 78 20 149/80 (103) 98 Nasal Cannula 2.00 01/24/19 21:58 98 Nasal Cannula 2.00 01/24/19 21:52 98 Nasal Cannula 2.00 01/24/19 20:30 98.0 61 20 160/83 (108) 98 Nasal Cannula 2.00 01/24/19 20:00 Nasal Cannula 2.00 01/24/19 19:00 81 01/24/19 16:35 97.4 62 20 162/92 (115) 99 Nasal Cannula 2.00 01/24/19 15:45 95 Nasal Cannula 2.00 01/24/19 13:34 Nasal Cannula 2.00 01/24/19 13:25 Nasal Cannula 2.00 01/24/19 13:07 51 01/24/19 11:27 95 Nasal Cannula 3.00 01/24/19 08:00 96.6 80 20 168/74 (105) 93 Nasal Cannula 3.00 01/24/19 08:00 Room Air 01/24/19 07:16 80 01/24/19 07:05 98 Nasal Cannula 3.00 I & O 01/25/19 07:00 Intake Total 4050 ml Output Total 900 ml Balance 3150 ml Height & Weight Height: 5'5.00" Weight: 208lbs. 3.2oz. 94.067915vx; 34.7 BMI Method:Stated General Appearance: No Apparent Distress, Obese HEENT: PERRL/EOMI, Moist Mucous Membranes; No Scleral Icterus (L), No Scleral Icterus (R) Neck: Normal Inspection, Supple; No Thyromegaly Respiratory: No No Accessory Muscle Use, No No Respiratory Distress; Wheezing Cardiovascular: Regular Rate, Rhythm, No JVD, No Murmur, Normal Peripheral Pulses Capillary Refill: Less Than 3 Seconds Gastrointestinal: normal bowel sounds, non tender, soft, no organomegaly, no pulsatile mass Extremity: No Calf Tenderness, No Pedal Edema Neurologic/Psychiatric: Alert, Oriented x3 Skin: Normal Color, Warm/Dry Lymphatic: No Adenopathy Results Lab Laboratory Tests 01/24/19 04:15 01/25/19 04:10 Assessment/Plan Assessment/Plan COPDAE -Solumedrol decrease to 40 Q6 -- Change to prednisone taper -SVNS Q4 continue pulmicort BID -Oxygen -Hep lock IVF Hx of AFIB, and CAD DRISS FUNES DO Jan 25, 2019 07:02
[2019-01-25 08:19] VITALS: BP_SYST 135; BP_SYST 162; BP_DIAS 103; BP_DIAS 70
[2019-01-25] MEDS: FLUTICASONE NASAL SPRAY (FLONASE) 16 GM BTL NS SCH (08:39)
[2019-01-25] MEDS: BENZONATATE 100 MG (TESSALON) CAPSULE PO PRN (08:40)
[2019-01-25] MEDS: amLODIPine 10 MG (NORVASC) TAB PO SCH (08:41)
[2019-01-25] MEDS: CLOPIDOGREL 75 MG (PLAVIX) TABLET PO SCH (08:41)
[2019-01-25] MEDS: SPIRONOLACTONE 25 MG (ALDACTONE) TAB PO SCH (08:41)
[2019-01-25] MEDS: LORATADINE (CLARITIN) 10 MG TAB PO SCH (08:41)
[2019-01-25] MEDS: APIXABAN 5 MG (ELIQUIS) TABLET PO SCH ×2 (08:41→20:17)
[2019-01-25] MEDS: ISOSORBIDE MONONITRATE 60 MG (IMDUR) TAB PO SCH (08:41)
[2019-01-25] MEDS: predniSONE 10 MG TAB PO SCH (08:41)
[2019-01-25] MEDS: guaiFENesin (MUCINEX) 600 MG TAB PO SCH ×2 (08:41→20:17)
[2019-01-25] MEDS: HYDROCHLOROTHIAZIDE 25 MG (HCTZ) TAB PO SCH (08:47)
--- NOTE | 2019-01-25 09:15 | Physical Therapy Daily Note ---
PT Daily Note-Current Subjective Pt declined PT. Pt agreeable to ther ex in bed. Denies pain but says "just my coughing is painful". Pt coughing throughout treatment, nonproductive. Mental Status Patient Orientation: Person, Place, Situation Transfers Therapy Code Descriptions/Definitions Functional [place] Measure: 0=Not Assessed/NA 4=Minimal Assistance 1=Total Assistance 5=Supervision or Setup 2=Maximal Assistance 6=Modified [place] 3=Moderate Assistance 7=Complete [place] Therapy Quality Codes: 6 Independent with activity with or without an assistive device 5 Patient requires set up or clean up by helper. Patient completes activity by themselves 4 Supervision or touching assist (CGA). [place] provide cues , steadying assist 3 The helper provides less than half the effort to complete the activity 2 The helper provides more than half the effort to complete the activity 1 Dependent. The helper does all the effort to complete an activity 7 Patient refused to complete or attempt activity 9 The patient did not perform the activity before the current illness or injury 88 Not attempted due to Medical conditions or safety concerns Weight Bearing Right Lower Extremity: Right Weight Bearing/Tolerated Left Lower Extremity: Left Weight Bearing/Tolerated Exercises Supine Ex: Ankle pumps, Quad Set, Glut sets, Heel Slides, Short Arc Quads, Hip abd/add Supine Reps: 20 Assessment Current Status: Poor Progress Pt limited by SOB and continual coughing this am. Pt able to complete ther ex with frequent breaks. Pt in bed with all needs met post ther ex. O2 per nasal canula PT Penitentiary Goals Penitentiary Goals PT [place] Goals Time Frame: Jan 30, 2019 Transfers (B,C,W/C) (FIM): 7 Gait (FIM): 6 Gait distance (FIM): 3=150 ft Gait Assistive Device: FWW PT Plan Treatment/Plan Treatment Plan: Continue Plan of Care Treatment Plan: Bed Mobility, Education, Functional Activity Taiwo, Functional Strength, Gait, Safety, Therapeutic Exercise, Transfers Treatment Duration: Jan 30, 2019 Frequency: 6 times per week Estimated Hrs Per Day: .25 hour per day Patient and/or Family Agrees t: Yes Time/GCodes Time In: 810 Time Out: 825 Total Billed Treatment Time: 15 Total Billed Treatment 1, ther ex 15min YOJANA RAMIREZ CPTA Jan 25, 2019 09:15
--- NOTE | 2019-01-25 10:05 | Cardiology Progress Note ---
Subjective Date Seen by Provider: Jan 25, 2019 Time Seen by Provider: 10:03 Subjective/Events-last exam patient is sitting in bed. Denied any chest pain, still dyspneic Review of Systems General: No Chills, No Night Sweats, No Fatigue, No Malaise, No Appetite, No Other HEENT: No Head Aches, No Visual Changes, No Eye Pain, No Ear Pain, No Dysphasia , No Sinus Congestion, No Post Nasal Drip, No Sore Throat, No Other Pulmonary: Dyspnea, Cough; No Pleuritic Chest Pain, No Other Cardiovascular: No: Chest Pain, Palpitations, Orthopnea, Paroxysmal Noc. Dyspnea, Edema, Lt Headedness, Other Focused Exam Lactate Level 01/22/19 19:10: Lactic Acid Level 3.09*H 01/23/19 08:00: Lactic Acid Level 2.20*H 01/23/19 10:12: Lactic Acid Level 2.76*H Objective-Cardiology Exam Last Set of Vital Signs Vital Signs 01/22/19 01/25/19 21:05 08:19 Temp 98.3 Pulse 78 Resp 18 B/P (MAP) 135/103 (114) Pulse Ox 98 O2 Delivery Nasal Cannula O2 Flow Rate 2.00 FiO2 21 Capillary Refill : Less Than 3 SecondsLess Than 3 Seconds I&O Intake and Output 01/24/19 23:59 Intake Total 3050 ml Output Total 800 ml Balance 2250 ml Intake Oral 790 ml IV Total 2260 ml Output Urine Total 800 ml General: Alert, Oriented X3, Cooperative HEENT: Atraumatic, PERRLA Neck: Supple, No JVD, No Thyromegaly Lungs: Normal Air Movement, Other (bilateral wheezing and rhonchi) Heart: Normal S1, Normal S2, No Murmurs, Other (and irregular) Abdomen: Normal Bowel Sounds, Soft, No Tenderness, No Hepatosplenomegaly, No Masses Extremities: No Clubbing, No Cyanosis, No Edema, Normal Pulses, No Tenderness/ Swelling Skin: No Rashes, No Breakdown, No Significant Lesion Neuro: Normal Gait, Normal Speech, Strength at 5/5 X4 Ext, Normal Tone, Sensation Intact Psych/Mental Status: Mental Status NL, Mood NL Results Lab Laboratory Tests 01/25/19 04:10 A/P-Cardiology Admission Diagnosis Chronic atrial fibrillation Bradycardia Coronary artery disease Hypertension COPD Assessment/Plan Shortness of breath, acute exacerbation of COPD, uncle asthma, still actively wheezing, on nasal cannula at this time. Continue to monitor Chronic persistent atrial fibrillation, maintained on Eliquis, status post multiple episodes of bradycardia, improved after discontinuation of Coreg and using continuous oxygen. Continue to monitor, will consider the use of selective beta-1 bhupinder in the future Severe COPD, history of recurrent exacerbation, managed by Dr. Thomas Echocardiogram showed severe left ventricular hypertrophy with normal systolic function, diastolic dysfunction. Coronary artery disease, history of multiple intervention, reporting having history of [address] Knapp in [place], maintained on Plavix History of PVCs was maintained on Coreg which was discontinued. Hypertension, monitor blood pressure, receiving amlodipine and lisinopril. We' ll consider adding Toprol if needed. Clinical Quality Measures DVT/VTE Risk/Contraindication: Risk Factor Score Per Nursin RFS Level Per Nursing on Admit: 4+=Very High RAJANI PERALTA MD Jan 25, 2019 10:05
[2019-01-25] MEDS ORDERED: FUROSEMIDE 40 MG/4 ML INJ (LASIX) IVP NR (10:15)
--- NOTE | 2019-01-25 10:16 | Progress Note-Hospitalist ---
Subjective HPI/CC On Admission Date Seen by Provider: Jan 25, 2019 Time Seen by Provider: 10:13 Pt is a 63yoCF with a PMH of COPD, CAD, a-fib who presented to the ER with CC SOB. She states her symptoms started on 01/14. She has been seen by her PCP for this and was started on antibiotics and given a steroid injection on 01/21. Despite this she continued to worsen and last night she felt hse couldn't breathe and her wheezing increased. In the ER she was found to have normal oxygen levels but significant wheezing and was admitted for COPD exacerbation. She states she is still feeling poorly and quite short of breath today. She has a history of intubation from COPD exacerbation in 05/2018. This is her only intubation due to COPD. She denies a history of smoking but her was a smoker and smoked in the house. Subjective/Events-last exam Pt reports still feeling poorly. Complains of persistent cough and wheezing. States 0% better from presentation. Focused Exam Lactate Level 01/22/19 19:10: Lactic Acid Level 3.09*H 01/23/19 08:00: Lactic Acid Level 2.20*H 01/23/19 10:12: Lactic Acid Level 2.76*H Objective Exam Vital Signs Vital Signs Date Time Temp Pulse Resp B/P (MAP) Pulse Ox O2 Delivery O2 Flow Rate FiO2 01/25/19 08:19 98.3 78 18 135/103 (114) 98 Nasal Cannula 2.00 01/22/19 21:05 21 Capillary Refill : Less Than 3 SecondsLess Than 3 Seconds General Appearance: No Apparent Distress, Obese HEENT: No Scleral Icterus (L), No Scleral Icterus (R) Neck: No Thyromegaly Respiratory: No No Accessory Muscle Use, No No Respiratory Distress; Rhonci Cardiovascular: Regular Rate, Rhythm, No JVD, No Murmur, Normal Peripheral Pulses Gastrointestinal: Normal Bowel Sounds, Non Tender, Soft Extremity: No Calf Tenderness, No Pedal Edema Neurologic/Psychiatric: Alert, Oriented x3, Depressed Affect Results/Procedures Lab Laboratory Tests 01/25/19 04:10 Patient resulted labs reviewed. Imaging: Reviewed Imaging Report Assessment/Plan Assessment and Plan Assess & Plan/Chief Complaint COPD Exacerbation Diagnosis/Problems Diagnosis/Problems (1) COPD exacerbation Status: Chronic Assessment & Plan: Pulm consulted, appreciate recs Continue steroids, SVNs transitioned to oral steroids today Titrate sats to keep oxygen >90 Procalcitonin negative- no indication for further abx Will get CXR given slow progress Continue inhalers and mucinex Discussed with nurse to have honey ordered with meals to help with cough Will try Lasix IV x1 to see if helps with symptoms given she is 7L positive since admission (2) CAD (coronary artery disease) Status: Chronic Assessment & Plan: Continue home meds Qualifiers: Coronary Disease-Associated Artery/Lesion type: [place] artery [place] vs. transplanted heart: [place] heart Associated angina: without angina Qualified Codes: I25.10 - Atherosclerotic heart disease of [place] coronary artery without angina pectoris (3) Essential (primary) hypertension Status: Chronic Assessment & Plan: Cont home medications (4) Diastolic CHF Status: Acute Assessment & Plan: No acute exacerbation Continue home meds Qualifiers: Heart failure chronicity: chronic Qualified Codes: I50.32 - Chronic diastolic (congestive) heart failure (5) Atrial fibrillation Assessment & Plan: Bracycardia with pauses yesterday Cardiology consulted, appreciate recs Coreg held Monitor on telemetry Qualifiers: Atrial fibrillation type: chronic Qualified Codes: I48.2 - Chronic atrial fibrillation Clinical Quality Measures DVT/VTE Risk/Contraindication: Risk Factor Score Per Nursin RFS Level Per Nursing on Admit: 4+=Very High SANDRA VICTOR MD Jan 25, 2019 10:16
--- NOTE | 2019-01-25 11:50 | Diagnostic Imaging Report ---
Portable chest compared to prior study from January 22, 2019. INDICATION: Shortness of breath and congestion. FINDINGS: When compared to the prior exam, there has not been evidence of a significant interval change. There is stable enlargement of the cardiac silhouette. There are no findings to suggest current pulmonary edema. There is no dense alveolar consolidation. There are no findings of a large effusion or evidence of a pneumothorax. There appears to be a calcified left hilar lymph node. No acute or suspicious osseous abnormality is demonstrated. IMPRESSION: 1. Stable enlargement of the cardiac silhouette without evidence of failure. No focal alveolar consolidation or significant effusion demonstrated. Dictated by: Dictated on workstation # [id number]
[2019-01-25 14:39] VITALS: BP 135/103
[2019-01-25 15:27] VITALS: BP 170/83
[2019-01-25] MEDS: MONTELUKAST 10 MG (SINGULAIR) TAB PO SCH (20:18)
[2019-01-25] MEDS: ATORVASTATIN 40 MG (LIPITOR) TABLET PO SCH (20:18)
[2019-01-26] VITALS: BP 175/74
[2019-01-26] MEDS: RT-ALBUTEROL/IPRATROPIUM 3 ML (DUONEB) VIAL INH SCH ×6 (02:49→23:34)
[2019-01-26 04:15] LABS: HEMOGLOBIN 13.3 G/DL (11.5-16.0); MEAN PLATELET VOLUME 11.6 FL (7.4-10.4); RED CELL DISTRIBUTION WIDTH 13.7 % (10.0-14.5); WHITE BLOOD COUNT 11.1 10^3/uL (4.3-11.0)
[2019-01-26 04:31] LABS: BUN/CREATININE RATIO 27; CALCIUM 9.3 MG/DL (8.5-10.1); CARBON DIOXIDE 26 MMOL/L (21-32); CHLORIDE 105 MMOL/L (98-107); CREATININE SERUM 0.77 MG/DL (0.60-1.30); GFR ESTIMATED > 60; GLUCOSE 134 MG/DL (70-105); MAGNESIUM 1.8 MG/DL (1.8-2.4); PHOSPHORUS 2.1 MG/DL (2.3-4.7); POTASSIUM 3.4 MMOL/L (3.6-5.0); SODIUM 142 MMOL/L (135-145)
[2019-01-26] MEDS: RT-BUDESONIDE NEBS 0.5 MG/2ML (PULMICORT) AMP INH SCH ×2 (07:42→18:45)
[2019-01-26] MEDS: RT-ADVAIR HFA 115/21 MCG PER PUFF IH SCH ×2 (07:42→18:45)
[2019-01-26 08:00] VITALS: BP 176/94
[2019-01-26] MEDS: amLODIPine 10 MG (NORVASC) TAB PO SCH (08:03)
[2019-01-26] MEDS: ISOSORBIDE MONONITRATE 60 MG (IMDUR) TAB PO SCH (08:03)
[2019-01-26] MEDS: predniSONE 10 MG TAB PO SCH (08:04)
[2019-01-26] MEDS: APIXABAN 5 MG (ELIQUIS) TABLET PO SCH ×2 (08:04→20:08)
[2019-01-26] MEDS: HYDROCHLOROTHIAZIDE 25 MG (HCTZ) TAB PO SCH (08:04)
[2019-01-26] MEDS: guaiFENesin (MUCINEX) 600 MG TAB PO SCH ×2 (08:04→20:08)
[2019-01-26] MEDS: LORATADINE (CLARITIN) 10 MG TAB PO SCH (08:04)
[2019-01-26] MEDS: CLOPIDOGREL 75 MG (PLAVIX) TABLET PO SCH (08:04)
[2019-01-26] MEDS: SPIRONOLACTONE 25 MG (ALDACTONE) TAB PO SCH (08:04)
[2019-01-26] MEDS: FLUTICASONE NASAL SPRAY (FLONASE) 16 GM BTL NS SCH (08:05)
--- NOTE | 2019-01-26 08:09 | Cardiology Progress Note ---
Subjective Date Seen by Provider: Jan 26, 2019 Time Seen by Provider: 08:07 Subjective/Events-last exam patient is sitting in bed, eating breakfast, still having significant wheezing and shortness of breath Review of Systems General: No Chills, No Night Sweats, No Fatigue, No Malaise, No Appetite, No Other HEENT: No Head Aches, No Visual Changes, No Eye Pain, No Ear Pain, No Dysphasia , No Sinus Congestion, No Post Nasal Drip, No Sore Throat, No Other Pulmonary: Dyspnea, Cough; No Pleuritic Chest Pain, No Other Cardiovascular: No: Chest Pain, Palpitations, Orthopnea, Paroxysmal Noc. Dyspnea, Edema, Lt Headedness, Other Focused Exam Lactate Level 01/23/19 10:12: Lactic Acid Level 2.76*H Objective-Cardiology Exam Last Set of Vital Signs Vital Signs 01/25/19 01/26/19 01/26/19 01/26/19 14:39 00:00 07:00 07:46 Temp 96.8 Pulse 58 Resp 20 B/P (MAP) 175/74 (107) Pulse Ox 96 O2 Delivery Nasal Cannula O2 Flow Rate 1.00 FiO2 28 Capillary Refill : Less Than 3 SecondsLess Than 3 Seconds I&O Intake and Output 01/26/19 00:00 Intake Total 1990 ml Output Total 1000 ml Balance 990 ml Intake Oral 790 ml IV Total 1200 ml Output Urine Total 1000 ml # Voids 2 # Bowel Movements 3 General: Alert, Oriented X3, Cooperative HEENT: Atraumatic, PERRLA Neck: Supple, No JVD, No Thyromegaly Lungs: Normal Air Movement, Other (bilateral wheezing and rhonchi) Heart: Normal S1, Normal S2, No Murmurs, Other (and irregular) Abdomen: Normal Bowel Sounds, Soft, No Tenderness, No Hepatosplenomegaly, No Masses Extremities: No Clubbing, No Cyanosis, No Edema, Normal Pulses, No Tenderness/ Swelling Skin: No Rashes, No Breakdown, No Significant Lesion Neuro: Normal Gait, Normal Speech, Strength at 5/5 X4 Ext, Normal Tone, Sensation Intact Psych/Mental Status: Mental Status NL, Mood NL Results Lab Laboratory Tests 01/26/19 03:55 A/P-Cardiology Admission Diagnosis Chronic atrial fibrillation Bradycardia Coronary artery disease Hypertension COPD Assessment/Plan Shortness of breath, acute exacerbation of COPD, bronchial asthma, still actively wheezing, on nasal cannula at this time, managed by Dr. Thomas Chronic persistent atrial fibrillation, maintained on Eliquis, status post multiple episodes of bradycardia, improved after discontinuation of Coreg and using continuous oxygen. Continue to monitor, will consider the use of selective beta-1 bhupinder in the future Severe COPD, history of recurrent exacerbation, managed by Dr. Thomas Echocardiogram showed severe left ventricular hypertrophy with normal systolic function, diastolic dysfunction. Coronary artery disease, history of multiple intervention, reporting having history of [address]ents[address] Knapp in [place], maintained on Plavix History of PVCs was maintained on Coreg which was discontinued. Hypertension, monitor blood pressure, receiving amlodipine and lisinopril. We' ll consider adding Toprol if needed. Clinical Quality Measures DVT/VTE Risk/Contraindication: Risk Factor Score Per Nursin RFS Level Per Nursing on Admit: 4+=Very High RAJANI PERALTA MD Jan 26, 2019 08:09
--- NOTE | 2019-01-26 10:55 | Progress Note-Hospitalist ---
Subjective HPI/CC On Admission Date Seen by Provider: Jan 26, 2019 Time Seen by Provider: 10:49 Pt is a 63yoCF with a PMH of COPD, CAD, a-fib who presented to the ER with CC SOB. She states her symptoms started on 01/14. She has been seen by her PCP for this and was started on antibiotics and given a steroid injection on 01/21. Despite this she continued to worsen and last night she felt hse couldn't breathe and her wheezing increased. In the ER she was found to have normal oxygen levels but significant wheezing and was admitted for COPD exacerbation. She states she is still feeling poorly and quite short of breath today. She has a history of intubation from COPD exacerbation in 05/2018. This is her only intubation due to COPD. She denies a history of smoking but her was a smoker and smoked in the house. Subjective/Events-last exam Pt reports feeling ok. No better or worse. Did take a shower today and have a lot of urine output with Lasix. Despite this was still net positive on I/Os yesterday. Objective Exam Vital Signs Vital Signs Date Time Temp Pulse Resp B/P (MAP) Pulse Ox O2 Delivery O2 Flow Rate FiO2 01/26/19 08:00 Nasal Cannula 3.00 01/26/19 08:00 99.0 76 22 176/94 (121) 97 01/25/19 14:39 28 Capillary Refill : Less Than 3 SecondsLess Than 3 Seconds General Appearance: No Apparent Distress, Obese HEENT: No Scleral Icterus (L), No Scleral Icterus (R) Neck: No Thyromegaly Respiratory: No No Accessory Muscle Use, No No Respiratory Distress; Rhonci ( improved from yesterday); No Wheezing Cardiovascular: No JVD, No Murmur, Normal Peripheral Pulses, Irregularly Irregular Gastrointestinal: Normal Bowel Sounds, Non Tender, Soft Neurologic/Psychiatric: Alert, Oriented x3, Depressed Affect Results/Procedures Lab Laboratory Tests 01/26/19 03:55 Patient resulted labs reviewed. Imaging: Reviewed Imaging Report Assessment/Plan Assessment and Plan Assess & Plan/Chief Complaint COPD Exacerbation Diagnosis/Problems Diagnosis/Problems (1) COPD exacerbation Status: Chronic Assessment & Plan: Very slow progress Pulm consulted, discussed with Dr Thomas this AM Continue oral steroids, SVNs Titrate sats to keep oxygen >90 Procalcitonin negative and yesterday's CXR with no consolidation- no indication for abx Continue inhalers and mucinex Check BNP- may repeat Lasix if still elevated (2) Atrial fibrillation Assessment & Plan: Bracycardia with pauses before DC coreg Cardiology consulted, appreciate recs Monitor on telemetry Qualifiers: Atrial fibrillation type: chronic Qualified Codes: I48.2 - Chronic atrial fibrillation (3) CAD (coronary artery disease) Status: Chronic Assessment & Plan: Continue home meds Qualifiers: Coronary Disease-Associated Artery/Lesion type: [place] artery [place] vs. transplanted heart: [place] heart Associated angina: without angina Qualified Codes: I25.10 - Atherosclerotic heart disease of [place] coronary artery without angina pectoris (4) Essential (primary) hypertension Status: Chronic Assessment & Plan: Cont home medications (5) Diastolic CHF Status: Acute Assessment & Plan: No acute exacerbation Continue home meds Qualifiers: Heart failure chronicity: chronic Qualified Codes: I50.32 - Chronic diastolic (congestive) heart failure Clinical Quality Measures DVT/VTE Risk/Contraindication: Risk Factor Score Per Nursin RFS Level Per Nursing on Admit: 4+=Very High SANDRA VICTOR MD Jan 26, 2019 10:55
[2019-01-26 15:50] VITALS: BP 160/87
[2019-01-26] MEDS ORDERED: FUROSEMIDE 40 MG/4 ML INJ (LASIX) IVP NR (17:00)
[2019-01-26] MEDS: ATORVASTATIN 40 MG (LIPITOR) TABLET PO SCH (20:08)
[2019-01-26] MEDS: BENZONATATE 100 MG (TESSALON) CAPSULE PO PRN (20:08)
[2019-01-26] MEDS: MONTELUKAST 10 MG (SINGULAIR) TAB PO SCH (20:08)
[2019-01-26] MEDS: MELATONIN 3 MG TABLET PO PRN (20:10)
[2019-01-27 00:10] VITALS: BP 153/73
[2019-01-27] MEDS: RT-ALBUTEROL/IPRATROPIUM 3 ML (DUONEB) VIAL INH SCH ×2 (02:16→06:43)
[2019-01-27 04:00] VITALS: BP 160/98
[2019-01-27 06:08] LABS: HEMOGLOBIN 13.3 G/DL (11.5-16.0); RED CELL DISTRIBUTION WIDTH 13.7 % (10.0-14.5)
[2019-01-27 06:26] LABS: BUN/CREATININE RATIO 24; CALCIUM 9.8 MG/DL (8.5-10.1); CARBON DIOXIDE 26 MMOL/L (21-32); CHLORIDE 100 MMOL/L (98-107); CREATININE SERUM 0.79 MG/DL (0.60-1.30); GFR ESTIMATED > 60; GLUCOSE 125 MG/DL (70-105); MAGNESIUM 1.8 MG/DL (1.8-2.4); POTASSIUM 3.1 MMOL/L (3.6-5.0); SODIUM 139 MMOL/L (135-145)
[2019-01-27] MEDS: RT-BUDESONIDE NEBS 0.5 MG/2ML (PULMICORT) AMP INH SCH (06:43)
[2019-01-27] MEDS: RT-ADVAIR HFA 115/21 MCG PER PUFF IH SCH (06:44)
--- NOTE | 2019-01-27 07:28 | Pulmonary Progress Note ---
Subjective Time Seen by a Provider: 07:25 Sepsis Event Evaluation Height, Weight, BMI Height: 5'5.00" Weight: 215lbs. 4.0oz. 97.090037tb; 34.7 BMI Method:Stated Exam Exam Vital Signs Date Time Temp Pulse Resp B/P (MAP) Pulse Ox O2 Delivery O2 Flow Rate FiO2 01/27/19 07:08 79 01/27/19 06:49 98 Nasal Cannula 1.00 01/27/19 06:48 98 Nasal Cannula 1.00 01/27/19 04:00 97.0 69 18 160/98 (118) 97 Nasal Cannula 1.00 01/27/19 02:16 96 Nasal Cannula 1.00 01/27/19 01:00 76 01/27/19 00:10 99.4 67 18 153/73 (99) 95 Nasal Cannula 3.00 01/26/19 20:00 Nasal Cannula 3.00 01/26/19 19:01 89 01/26/19 18:52 95 Nasal Cannula 1.00 01/26/19 18:45 95 Nasal Cannula 1.00 01/26/19 15:50 98.2 72 18 160/87 (111) 98 Nasal Cannula 1.00 01/26/19 15:22 95 Nasal Cannula 1.00 01/26/19 13:10 78 01/26/19 10:52 96 Nasal Cannula 1.00 01/26/19 08:00 Nasal Cannula 3.00 01/26/19 08:00 99.0 76 22 176/94 (121) 97 Nasal Cannula 1.00 01/26/19 07:46 96 Nasal Cannula 1.00 01/26/19 07:43 96 Nasal Cannula 1.00 I & O 01/27/19 07:00 Intake Total 820 ml Output Total 2600 ml Balance -1780 ml Height & Weight Height: 5'5.00" Weight: 215lbs. 4.0oz. 97.414879rn; 34.7 BMI Method:Stated General Appearance: No Apparent Distress, Obese HEENT: No Scleral Icterus (L), No Scleral Icterus (R) Neck: No Thyromegaly Respiratory: No No Accessory Muscle Use, No No Respiratory Distress; Rhonci ( improved from yesterday); No Wheezing Cardiovascular: No JVD, No Murmur, Normal Peripheral Pulses, Irregularly Irregular Capillary Refill: Less Than 3 Seconds Gastrointestinal: normal bowel sounds, non tender, soft, no organomegaly, no pulsatile mass Neurologic/Psychiatric: Alert, Oriented x3, Depressed Affect Results Lab Laboratory Tests 01/26/19 03:55 01/27/19 05:41 Assessment/Plan Assessment/Plan COPDAE - prednisone taper -SVNS Q4 continue pulmicort BID -Oxygen -Hep lock IVF -BNP is >500 will give lasix 40mg IV -repeat CXR Grade 3 diastolic CHF per echo - EF is 70-75% -Pt needs out pt PSG -Start Lasix Hypokalemia -replace Hx of AFIB, and CAD DRISS FUNES DO Jan 27, 2019 07:28
[2019-01-27] MEDS ORDERED: KCL 10 MEQ TAB (MICRO K) PO ONE (07:30)
[2019-01-27] MEDS ORDERED: FUROSEMIDE 40 MG/4 ML INJ (LASIX) IVP ONE (07:30)
[2019-01-27 08:00] VITALS: BP 149/78
--- NOTE | 2019-01-27 08:30 | Diagnostic Imaging Report ---
INDICATION: COPD exacerbation and shortness of breath. Time of exam: 8:17 AM Correlation is made with prior study from 01/25/2019. The heart is enlarged but stable. There is central congestion but no overt failure. No infiltrate or effusion is seen. There is no pneumothorax. IMPRESSION: Cardiomegaly with mild central congestion. Dictated by: Dictated on workstation # [id number]
--- NOTE | 2019-01-27 08:56 | Progress Note-Cardiology ---
Cardiology SOAP Progress Note Subjective: Sitting up in a chair at the bedside. Continues to feel SOB. Feels her breathing is unchanged from yesterday. No c/o CP, palpitations, syncope or near syncope. No c/o LE swelling. Objective: I&O/Vital Signs 01/27/19 01/27/19 01/27/19 01/27/19 00:10 01:00 02:16 04:00 Temp 99.4 97.0 Pulse 67 76 69 Resp 18 18 B/P (MAP) 153/73 (99) 160/98 (118) Pulse Ox 95 96 97 O2 Delivery Nasal Cannula Nasal Cannula Nasal Cannula O2 Flow Rate 3.00 1.00 1.00 01/27/19 01/27/19 01/27/19 06:48 06:49 07:08 Pulse 79 Pulse Ox 98 98 O2 Delivery Nasal Cannula Nasal Cannula O2 Flow Rate 1.00 1.00 01/27/19 00:00 Intake Total 720 ml Output Total 1700 ml Balance -980 ml Weight (Pounds): 215 Weight (Ounces): 4.0 Weight (Calculated Kilograms): 97.879066 Constitutional: AAO x 3, well-developed, well-nourished Respiratory: chest expansion is symmetric, chest is bilaterally symmetric, rhonchi (scattered), other (diminished lower lobes bilat) Cardiovascular: irregularly irregular; No JVD; S1 and S2, systolic murmur Gastrointestional: No tender; soft, round, audible bowel sounds Extremities: no lower extremity edema bilateral Neurologic/Psychiatric: grossly intact Skin: No rash, No ulcerations Results/Procedures: Labs Laboratory Tests 01/26/19 11:55: B-Type Natriuretic Peptide 547.1H 01/27/19 05:41: White Blood Count 11.0, Red Blood Count 4.72, Hemoglobin 13.3, Hematocrit 40, Mean Corpuscular Volume 85, Mean Corpuscular Hemoglobin 28, Mean Corpuscular Hemoglobin Concent 33, Red Cell Distribution Width 13.7, Platelet Count 226, Mean Platelet Volume 11.0H, Sodium Level 139, Potassium Level 3.1L, Chloride Level 100, Carbon Dioxide Level 26, Anion Gap 13, Blood Urea Nitrogen 19H, Creatinine 0.79, Estimat Glomerular Filtration Rate > 60, BUN/Creatinine Ratio 24, Glucose Level 125H, Calcium Level 9.8, Phosphorus Level 3.0, Magnesium Level 1.8 Microbiology 01/22/19 Blood Culture - Preliminary, Resulted No growth 01/22/19 Influenza Types A,B Antigen (ARMAND) - Final, Complete 01/22/19 Urine Culture - Final, Complete Staphylococcus epidermidis Laboratory Tests 01/26/19 03:55 01/27/19 05:41 Laboratory Tests 01/26/19 03:55 01/27/19 05:41 Procedures NAME: [facility] REC#: [id number] PT STATUS: ADM IN : 1955 PHYSICIAN: DRISS THOMAS DO ADMIT DATE: 01/22/19 Draft Date of Exam:01/27/19 CHEST 1 VIEW, AP/PA ONLY INDICATION: COPD exacerbation and shortness of breath. Time of exam: 8:17 AM Correlation is made with prior study from 01/25/2019. The heart is enlarged but stable. There is central congestion but no overt failure. No infiltrate or effusion is seen. There is no pneumothorax. IMPRESSION: Cardiomegaly with mild central congestion. Dictated on workstation # [id number] Dict: 01/27/19 0826 Trans: 01/27/19 0829 DAINA [id number] Interpreted by: CAL ROB MD Electronically signed by: A/P: Assessment: Shortness of breath, likely multi-factorial, acute exacerbation of COPD, bronchial asthma Acute on chronic exacerbation of severe COPD - managed by Dr. Thomas Bronchial asthma - managed by Dr. Thomas Acute on chronic diastolic CHF - tx with diuretics Obesity-hypoventilation syndrome with nocturnal hypoxia Chronic persistent atrial fibrillation - status post multiple episodes of bradycardia, improved after discontinuation of Coreg and using continuous oxygen OAC with Eliquis Echocardiogram of 01-23-[address] Carolina showed LVH. LVEF 70-75%. Grade 3 diastolic dysfunction. LA and RA dilated. Mild MR. Mild to mod TR. PASP 40- 45mmHg. Small pericardial effusion, which is chronic, seen on echo of 07-10-17 and February 2017. CAD. Her primary putty tinter maker is Dr Knapp at [facility] - Cardiac cath of at [facility] - 70% left main stenosis prox, 50% prox LAD occlusion. The prox/ostial left main was stented with a 4.0 x 12 mm Synergy stent History of PVCs previously maintained on Coreg which was discontinued d/t episodes of bradycardia Hypertension - not well controlled Electrolyte abnormalities - replace Plan: Will re-introduce BB for HR control and PVC We will add losartan for BP control Replace electrolytes Continue Plavix d/t known CAD Continue Eliquis for stroke prophylaxis Monitor lab closely Acute on chronic diastolic CHF - give IV diuretics as indicated Further recs will be based on her hospital course Chart has been reviewed YANET WHITE Jan 27, 2019 08:56
[2019-01-27] MEDS: FLUTICASONE NASAL SPRAY (FLONASE) 16 GM BTL NS SCH (09:04)
[2019-01-27] MEDS: guaiFENesin (MUCINEX) 600 MG TAB PO SCH (09:04)
[2019-01-27] MEDS: APIXABAN 5 MG (ELIQUIS) TABLET PO SCH (09:04)
[2019-01-27] MEDS: predniSONE 10 MG TAB PO SCH (09:04)
[2019-01-27] MEDS: CLOPIDOGREL 75 MG (PLAVIX) TABLET PO SCH (09:04)
[2019-01-27] MEDS: ISOSORBIDE MONONITRATE 60 MG (IMDUR) TAB PO SCH (09:04)
[2019-01-27] MEDS: LORATADINE (CLARITIN) 10 MG TAB PO SCH (09:04)
[2019-01-27] MEDS: HYDROCHLOROTHIAZIDE 25 MG (HCTZ) TAB PO SCH (09:04)
[2019-01-27] MEDS: SPIRONOLACTONE 25 MG (ALDACTONE) TAB PO SCH (09:04)
[2019-01-27] MEDS: amLODIPine 10 MG (NORVASC) TAB PO SCH (09:04)
[2019-01-27] MEDS ORDERED: KCL 20 MEQ TAB (K-DUR) PO ONE (09:15)
[2019-01-27] MEDS ORDERED: LOSARTAN 100 MG (COZAAR) TABLET PO NR (09:23)
[2019-01-27] MEDS ORDERED: meTOproloL SUCCINATE 50 MG (TOPROL XL) TAB PO NR (09:26)
--- NOTE | 2019-01-27 09:27 | Physical Therapy Daily Note ---
PT Daily Note-Current Subjective Patient reports she is not feeling better. Patient is in bed watching TV. Mental Status Patient Orientation: Normal For Age Attachments: Oxygen (2L) Transfers Therapy Code Descriptions/Definitions Functional [place] Measure: 0=Not Assessed/NA 4=Minimal Assistance 1=Total Assistance 5=Supervision or Setup 2=Maximal Assistance 6=Modified [place] 3=Moderate Assistance 7=Complete [place] Therapy Quality Codes: 6 Independent with activity with or without an assistive device 5 Patient requires set up or clean up by helper. Patient completes activity by themselves 4 Supervision or touching assist (CGA). [place] provide cues , steadying assist 3 The helper provides less than half the effort to complete the activity 2 The helper provides more than half the effort to complete the activity 1 Dependent. The helper does all the effort to complete an activity 7 Patient refused to complete or attempt activity 9 The patient did not perform the activity before the current illness or injury 88 Not attempted due to Medical conditions or safety concerns Transfers (B, C, W/C) (FIM): 6 Scootin Supine to/from Sit: 6 Sit to/from Stand: 6 Bed to/from Chair: 6 Weight Bearing Right Lower Extremity: Right Weight Bearing/Tolerated Left Lower Extremity: Left Weight Bearing/Tolerated Gait Training Gait (FIM): 6 Distance: 275' Gait Level of Assist: 6 Gait Assistive Device: FWW very slow gait pattern/safe and functional/assist for O2 tank only 2L Assessment Patient requires much encouragement to participate with PT. When patient is up , she is very functional with gross motor skills. PT Physics Professor Goals Physics Professor Goals PT Physics Professor Goals Time Frame: Jan 30, 2019 Transfers (B,C,W/C) (FIM): 7 Gait (FIM): 6 Gait distance (FIM): 3=150 ft Gait Assistive Device: FWW PT Plan Treatment/Plan Treatment Plan: Continue Plan of Care Treatment Plan: Bed Mobility, Education, Functional Activity Taiwo, Functional Strength, Gait, Safety, Therapeutic Exercise, Transfers Treatment Duration: Jan 30, 2019 Frequency: 6 times per week Estimated Hrs Per Day: .25 hour per day Patient and/or Family Agrees t: Yes Time/GCodes Time In: 835 Time Out: 847 Total Billed Treatment Time: 12 Total Billed Treatment 1 visit FA 12 min SOLEDAD JAMES PT Jan 27, 2019 09:27
--- NOTE | 2019-01-27 10:55 | Progress Note-Hospitalist ---
Progress Note Progress Notes/Assess & Plan Date Seen 01/27/19 Time Seen by Provider: 10:50 Assessment & Plan The patient is a 63-year-old white female admitted to the hospitalist service with complaints of shortness of breath. She is a [place] resident. She has been admitted here previously with shortness of breath. On this visit she had been seen as an outpatient by her provider started on an antibiotic and other treatments. This had not been helpful. She also has cardiac disease but no evidence of congestive heart failure. She has had intervention to the coronary arteries. A relatively recent echocardiogram showed normal systolic and diastolic function. She has persistent atrial fibrillation. She had been taking a nonselective beta bhupinder and Dr. Carolina stopped this. This was with regard both to a relative bradycardia and her persistent wheezing. A selective receptor beta bhupinder will be considered in the future. She reports that she was able to walk about [place]. She will therefore be discharged. Physical exam: She is obese. Lungs show distant breath sounds but are clear. She chooses to forcefully exhale with an open mouth which causes a rhonchus sound from mid to end expiration. CV is irregular. Extremities show no pedal edema. Impression: COPD in exacerbation, now improved 2.persistent atrial fibrillation. Plan: Discharge today. CONNOR KIM MD Jan 27, 2019 10:55
[2019-01-27] MEDS ORDERED: PRD10T PO (11:18)
[2019-01-27] MEDS ORDERED: LOSA100T57 PO (11:18)
[2019-01-27 14:10] VITALS: BP 149/78
--- NOTE | 2019-01-27 14:10 | NUR ---
DISCHARGE INSTRUCTIONS GIVEN TO PATIENT WITH TIME ALLOWED FOR QUESTIONS. IV REMOVED WITH CATHETER TIP INTACT. NO COMPLAINTS OF PAIN OR SHORTNESS OF BREATH. ADULT DAUGHTER HERE TO GAS STATION CLERK PATIENT. PATIENT LEFT VIA WHEELCHAIR ACCOMPANIED BY FAMILY AND STAFF TO PRIVATE VEHICLE.
[2019-01-28] MEDS ORDERED: meTOproloL SUCCINATE 50 MG (TOPROL XL) TAB PO SCH (09:00)
[2019-01-28] MEDS ORDERED: FUROSEMIDE 40 MG/4 ML INJ (LASIX) IVP SCH (09:00)
[2019-01-28] MEDS ORDERED: LOSARTAN 100 MG (COZAAR) TABLET PO SCH (09:00)
== END 2019-01-27 14:10 | disposition home or self-care (01) | DRG 190 ==
LOC: EDUNIT# 16:38 → ER 16:40 → 4TH 18:46
PROVIDERS: ADMIT Internal Medicine; ATTEND Internal Medicine
DX: J44.1 Chronic obstructive pulmonary disease with (acute) exacerbation (principal); E87.2 Acidosis; I13.0 Hypertensive heart and chronic kidney disease with heart failure and stage 1 through stage 4 chronic kidney disease, or unspecified chronic kidney disease; I50.33 Acute on chronic diastolic (congestive) heart failure; E66.2 Morbid (severe) obesity with alveolar hypoventilation; Z68.35 Body mass index [BMI] 35.0-35.9, adult; N18.9 Chronic kidney disease, unspecified; I25.10 Atherosclerotic heart disease of native coronary artery without angina pectoris; J30.2 Other seasonal allergic rhinitis; E87.6 Hypokalemia; I48.2 Chronic atrial fibrillation; E78.00 Pure hypercholesterolemia, unspecified; K21.9 Gastro-esophageal reflux disease without esophagitis; M54.9 Dorsalgia, unspecified; F41.9 Anxiety disorder, unspecified; F32.9 Major depressive disorder, single episode, unspecified; R00.1 Bradycardia, unspecified; M19.91 Primary osteoarthritis, unspecified site; R09.02 Hypoxemia; I08.1 Rheumatic disorders of both mitral and tricuspid valves; Z77.22 Contact with and (suspected) exposure to environmental tobacco smoke (acute) (chronic); Z95.5 Presence of coronary angioplasty implant and graft; Z90.5 Acquired absence of kidney; Z79.01 Long term (current) use of anticoagulants; Z88.0 Allergy status to penicillin; Z88.2 Allergy status to sulfonamides
CPT/HCPCS: 36415; 71045; 80048; 80053; 81000; 82805; 83605; 83735; 83880; 84100; 84145; 84484; 85007; 85025; 85027; 87040; 87077; 87088; 87186; 87804; 93005; 93041; 93306; 94640; 94644; 94760; 96361; 96374; 96375

== ENCOUNTER 2019-05-12 13:12 | Inpatient (IN) | payer MEDICARE, MEDICAID ==
[~2019-05-12] VITALS: Ht 165.1 cm; Wt 107.6 kg
[~2019-05-12 13:12] MED LIST changes: +AZIT250T12; +AZIT250T12 PO; +IPRA3AMP31 IH; +LOSA100T57 PO; +ONDA4TAB11 PO; +TRAM50TA2 PO
[2019-05-12] MEDS ORDERED: methylPREDNISolone 125 MG (Solu-MEDROL) VIAL IVP ONE (13:45)
[2019-05-12] MEDS ORDERED: RT-ALBUTEROL SULF 2.5 MG/3 ML PRE-MIX VIAL INH SCH (13:45)
[2019-05-12] MEDS ORDERED: RT-ALBUTEROL/IPRATROPIUM 3 ML (DUONEB) VIAL INH ONE (13:45)
[2019-05-12 13:46] LABS: HEMATOCRIT 46 % (35-52); MEAN CORPUSCULAR HEMOGLOBIN 29 PG (25-34); MEAN CORPUSCULAR VOLUME 90 FL (80-99); WHITE BLOOD COUNT 12.6 10^3/uL (4.3-11.0)
[2019-05-12 13:47] LABS: BASOPHILS # (AUTO) 0.1 10^3/uL (0.0-0.1); BASOPHILS % (AUTO) 1 % (0-10); EOSINOPHILS # (AUTO) 0.1 10^3/uL (0.0-0.3); EOSINOPHILS % (AUTO) 1 % (0-10); LYMPHOCYTES # (AUTO) 0.9 X 10^3 (1.0-4.0); LYMPHOCYTES % (AUTO) 8 % (12-44); MEAN CORPUSCULAR HGB CONC 33 G/DL (32-36); MONOCYTES # (AUTO) 0.3 X 10^3 (0.0-1.0); MONOCYTES % (AUTO) 2 % (0-12); NEUTROPHILS % (AUTO) 88 % (42-75); PLATELET COUNT 246 10^3/uL (130-400); RED CELL DISTRIBUTION WIDTH 13.7 % (10.0-14.5)
--- NOTE | 2019-05-12 13:52 | ED General ---
General Chief Complaint: Respiratory Problems Stated Complaint: WHEEZING,SOA History of Present Illness Date Seen by Provider: May 12, 2019 Time Seen by Provider: 13:49 Initial Comments Patient presents emergency department for evaluation of worsening dyspnea and cough in the setting of known COPD. She does not require oxygen but has been feeling worse over the past 7 days and when saw her primary care provider last Sunday which would be 4 days ago now and was placed on Levaquin and a steroid taper but she says she is worsening. She says that she is coughing but is nonproductive. She denies any fevers chills chest pain diaphoresis nausea vomiting. She says she simply cannot catch her breath whenever she gets up and moves around it makes her severely dyspneic. She says that she has required admission multiple times after failing outpatient treatment and requires IV steroids which usually get her better. She appears to be in moderate respiratory distress but has nausea and saturation at 95%. Allergies and Home Medications Allergies Coded Allergies: Penicillins (Verified Allergy, Unknown, 03/12/17) Sulfa (Sulfonamide Antibiotics) (Verified Allergy, Unknown, 03/12/17) adhesive tape (Verified Allergy, Unknown, 03/12/17) Home Medications Albuterol Sulfate 1 Puff Puff, 1 PUFF INH Q6H PRN for SHORTNESS OF BREATH, (Reported) Amlodipine Besylate 10 Mg Tablet, 10 MG PO DAILY, (Reported) Apixaban 5 Mg Tablet, 5 MG PO BID, (Reported) LAST FILLED #60 07-21-18 Atorvastatin Calcium 40 Mg Tablet, 40 MG PO HS, (Reported) Cetirizine HCl 10 Mg Tablet, 10 MG PO DAILY, (Reported) Clopidogrel Bisulfate 75 Mg Tablet, 75 MG PO DAILY, (Reported) Fluticasone Propionate 16 Gm [place].susp, 2 SPRAY NS DAILY, (Reported) Fluticasone/Salmeterol 1 Each Blst.w.dev, 1 PUFF INH BID, (Reported) LAST FILLED 11-20-18 30 DAY SUPPLY Hydrochlorothiazide 25 Mg Tablet, 25 MG PO DAILY, (Reported) Ipratropium/Albuterol Sulfate 3 Ml Ampul.neb, 3 ML IH Q4H PRN for SHORTNESS OF BREATH, (Reported) Isosorbide Mononitrate 60 Mg Tab, 60 MG PO DAILY, (Reported) Losartan Potassium 100 Mg Tablet, 100 MG PO DAILY Prescribed by: CONNOR KIM on 01/27/19 1118 Montelukast Sodium 10 Mg Tablet, 10 MG PO HS, (Reported) Nitroglycerin 0.4 Mg Tab.subl, 0.4 MG SL UD PRN for CHEST PAIN, (Reported) Omeprazole 20 Mg Capsule.dr, 20 MG PO DAILY PRN for HEARTBURN, (Reported) Ondansetron 4 Mg Tab.rapdis, 4 MG PO Q6H PRN for NAUSEA/VOMITING-1ST LINE, (Reported) Prednisone 10 Mg Tab, 40 MG PO UD 4 X2 DAYS, 3 X2 DAYS, 2 X2 DAYS, 1 X2 DAYS Prescribed by: CONNOR KIM on 01/27/19 1118 Spironolactone 25 Mg Tablet, 25 MG PO DAILY, (Reported) Tramadol HCl 50 Mg Tablet, 50 MG PO Q4H PRN for PAIN-MODERATE, (Reported) Patient Home Medication List Home Medication List Reviewed: Yes Review of Systems Review of Systems Constitutional: no symptoms reported EENTM: no symptoms reported Respiratory: cough, dyspnea on exertion, short of breath Cardiovascular: no symptoms reported Gastrointestinal: no symptoms reported Genitourinary: no symptoms reported Musculoskeletal: no symptoms reported Skin: no symptoms reported Psychiatric/Neurological: No Symptoms Reported All Other Systems Reviewed Negative Unless Noted: Yes Past Tgtdkbc-Xcawcq-Inndlx Hx Patient Social History Recent Hopitalizations: Yes (LUNG ISSUES-02/2017; dc'd from [facility] on 05/24/18) Immunizations Up To Date Tetanus Booster (TDap): Unknown Date of Pneumonia Vaccine: Oct 29, 2017 Date of Influenza Vaccine: Jul 29, 2018 Seasonal Allergies Seasonal Allergies: Yes Past Medical History Surgeries: Yes (biopsy left breast) Appendectomy, Hysterectomy, Nephrectomy, Tonsillectomy Respiratory: Yes Pneumonia, COPD Currently Using CPAP: Yes Currently Using BIPAP: No Cardiac: Yes (STENTS x 3) Coronary Artery Disease, High Cholesterol, Hypertension, Irregular Heartbeat Neurological: Yes Reproductive Disorders: No Sexually Transmitted Disease: No HIV/AIDS: No Genitourinary: Yes (Lt Nephrectomy) Bladder Infection, UTI-Chronic Gastrointestinal: Yes Gastroesophageal Reflux Musculoskeletal: Yes Arthritis, Chronic Back Pain Endocrine: Yes HEENT: Yes (blurred) Loss of Vision: Bilateral Hearing Impairment: Denies Cancer: No Psychosocial: Yes Anxiety, Depression Integumentary: No Blood Disorders: No Adverse Reaction/Blood Tranf: No Family Medical History Colon cancer G8 BROTHER Diabetes mellitus G8 BROTHER G8 SISTER FHx: heart disease 19 FATHER 19 MOTHER Myocardial infarction 19 FATHER G8 SISTER COPD Physical Exam Vital Signs Vital Signs - First Documented 05/12/19 13:18 Temp 98.3 Pulse 100 Resp 20 B/P (MAP) 204/98 (133) Pulse Ox 97 O2 Delivery Room Air Capillary Refill : Height, Weight, BMI Height: 5'5.00" Weight: 215lbs. 4.0oz. 97.727162es; 34.7 BMI Method:Stated General Appearance: Chronically ill, Moderate Distress Eyes: Bilateral Eye Normal Inspection HEENT: PERRL/EOMI Neck: Full Range of Motion Respiratory: Accessory Muscle Use, Decreased Breath Sounds, Respiratory Distress, Wheezing Cardiovascular: Regular Rate, Rhythm Gastrointestinal: Non Tender Back: Normal Inspection Extremity: Normal Capillary Refill Neurologic/Psychiatric: Alert, Oriented x3 Skin: Normal Color, Warm/Dry Procedures/Interventions Date of ETT Placement: May 31, 2018 Time of ETT Placement: 1155 Progress/Results/Core Measures Suspected Sepsis SIRS Temperature: Pulse: Respiratory Rate: Laboratory Tests 05/12/19 13:23: White Blood Count 12.6H Blood Pressure / Mean: Laboratory Tests 05/12/19 13:23: Creatinine 0.87, Platelet Count 246, Total Bilirubin 0.6 Results/Orders Lab Results Laboratory Tests Test 05/12/19 13:23 05/12/19 14:30 Range/Units White Blood Count 12.6 H 4.3-11.0 10^3/uL Red Blood Count 5.10 4.35-5.85 10^6/uL Hemoglobin 15.0 11.5-16.0 G/DL Hematocrit 46 35-52 % Mean Corpuscular Volume 90 80-99 FL Mean Corpuscular Hemoglobin 29 25-34 PG Mean Corpuscular Hemoglobin Concent 33 32-36 G/DL Red Cell Distribution Width 13.7 10.0-14.5 % Platelet Count 246 130-400 10^3/uL Mean Platelet Volume 11.0 H 7.4-10.4 FL Neutrophils (%) (Auto) 88 H 42-75 % Lymphocytes (%) (Auto) 8 L 12-44 % Monocytes (%) (Auto) 2 0-12 % Eosinophils (%) (Auto) 1 0-10 % Basophils (%) (Auto) 1 0-10 % Neutrophils # (Auto) 11.0 H 1.8-7.8 X 10^3 Lymphocytes # (Auto) 0.9 L 1.0-4.0 X 10^3 Monocytes # (Auto) 0.3 0.0-1.0 X 10^3 Eosinophils # (Auto) 0.1 0.0-0.3 10^3/uL Basophils # (Auto) 0.1 0.0-0.1 10^3/uL Sodium Level 139 135-145 MMOL/L Potassium Level 3.7 3.6-5.0 MMOL/L Chloride Level 101 98-107 MMOL/L Carbon Dioxide Level 24 21-32 MMOL/L Anion Gap 14 5-14 MMOL/L Blood Urea Nitrogen 19 H 7-18 MG/DL Creatinine 0.87 0.60-1.30 MG/DL Estimat Glomerular Filtration Rate > 60 BUN/Creatinine Ratio 22 Glucose Level 189 H 70-105 MG/DL Calcium Level 9.6 8.5-10.1 MG/DL Corrected Calcium 9.4 8.5-10.1 MG/DL Total Bilirubin 0.6 0.1-1.0 MG/DL Aspartate Amino Transf (AST/SGOT) 17 5-34 U/L Alanine Aminotransferase (ALT/SGPT) 17 0-55 U/L Alkaline Phosphatase 52 40-136 U/L Troponin I < 0.30 <0.30 NG/ML Total Protein 7.0 6.4-8.2 GM/DL Albumin 4.3 3.2-4.5 GM/DL My Orders Orders - HORTENSIA BARNES DO Blood Culture (05/12/19 13:37) Chest 1 View Ap/Pa Only (05/12/19 13:37) Cbc With Automated Diff (05/12/19 13:37) Comprehensive Metabolic Panel (05/12/19 13:37) Troponin I (05/12/19 13:37) Ua Culture If Indicated (05/12/19 13:37) Probnp Fs (05/12/19 13:37) Ekg Tracing (05/12/19 13:37) Albuterol/Ipra Inhalation Soln (Duoneb I (05/12/19 13:45) Methylprednisolone Sod Succ (Solu-Medrol (05/12/19 13:45) Svn Small Volume Nebulizer (05/12/19 13:37) Albuterol Pre-Mix Nebs (Rt) (Proventil (05/12/19 13:45) Svn Small Volume Nebulizer (05/12/19 13:37) Arterial Blood Gas (05/12/19 14:45) Levaquin 750 Mg Iv (1x Dose) (05/12/19 14:45) Medications Given in ED Current Medications Medications Dose Ordered Sig/Jose Route Start Time Stop Time Status Last Admin Dose Admin Albuterol/ Ipratropium 3 ml ONCE ONCE INH 05/12/19 13:45 05/12/19 13:46 DC 05/12/19 13:55 3 ML Methylprednisolone Sodium Succinate 125 mg ONCE ONCE IVP 05/12/19 13:45 05/12/19 13:46 DC 05/12/19 13:55 125 MG Vital Signs/I&O 05/12/19 13:18 Temp 98.3 Pulse 100 Resp 20 B/P (MAP) 204/98 (133) Pulse Ox 97 O2 Delivery Room Air Capillary Refill : Progress Note : Progress Note Patient presenting to the emergency department for evaluation of worsening dyspnea and has audible wheezing and respiratory distress noted on exam. She was given 3 breathing treatments and IV steroids and she said she felt somewhat better however is still having some respiratory distress. Given she is not improving despite appropriate outpatient treatment she will be admitted to the hospital. Patient transferred in stable condition. Dr. Sepulveda accepted patient asked me to place a bridge orders for breathing treatments and Solu-Medrol and finish her course of Levaquin with an IV dose. Departure Impression Primary Impression: COPD exacerbation Additional Impression: Atrial fibrillation Disposition: 09 ADMITTED INPATIENT Condition: Improved Departure-Patient Inst. Referrals: ANGELITO CHU MD (PCP/Family) Primary Care Physician HORTENSIA BARNES DO May 12, 2019 13:52
--- NOTE | 2019-05-12 13:55 | Diagnostic Imaging Report ---
INDICATION: Wheezing and shortness of air. Time of exam 1:25 PM Correlation is made to prior study from 01/27/2019. The heart is enlarged. There is central congestion but no overt failure. No effusion or pneumothorax is seen. No infiltrates are identified. Impression: Cardiomegaly and central congestion. Dictated by: Dictated on workstation # [id number]
[2019-05-12 14:03] LABS: BILIRUBIN,TOTAL 0.6 MG/DL (0.1-1.0); BUN/CREATININE RATIO 22; CALCIUM 9.6 MG/DL (8.5-10.1); CARBON DIOXIDE 24 MMOL/L (21-32); CHLORIDE 101 MMOL/L (98-107); CREATININE SERUM 0.87 MG/DL (0.60-1.30); GFR ESTIMATED > 60; GLUCOSE 189 MG/DL (70-105); POTASSIUM 3.7 MMOL/L (3.6-5.0); SODIUM 139 MMOL/L (135-145)
[2019-05-12 14:04] LABS: ALANINE AMINOTRANSFERASE 17 U/L (0-55); ALBUMIN 4.3 GM/DL (3.2-4.5); ALKALINE PHOSPHATASE 52 U/L (40-136)
[2019-05-12] MEDS ORDERED: LEVOFLOXACIN 750 MG/150 ML IV 150 ML IV ONE (14:45)
[2019-05-12 14:46] LABS: BILIRUBIN,URINE NEGATIVE (NEGATIVE); CLARITY,URINE CLEAR; COLOR,URINE YELLOW; GLUCOSE, URINE (UA) NEGATIVE (NEGATIVE); KETONES,URINE NEGATIVE (NEGATIVE); LEUKOCYTE ESTERASE ,URINE NEGATIVE (NEGATIVE); NITRITE,URINE NEGATIVE (NEGATIVE); PROTEIN,URINE NEGATIVE (NEGATIVE); UROBILINOGEN,URINE 0.2 MG/DL (NORMAL)
[2019-05-12 14:47] LABS: BACTERIA,URINE NEG /HPF; WBC,URINE RARE /HPF
[2019-05-12] MEDS ORDERED: FUROSEMIDE 40 MG/4 ML INJ (LASIX) IVP ONE (15:00)
[2019-05-12 15:14] LABS: ABG BASE EXCESS 1.3 MMOL/L (-2.5-2.5); ABG OXYGEN SATURATION 94 % (94-100); ABG PCO2 35 MMHG (35-45); ABG PH 7.46 (7.37-7.43); ABG PO2 68 MMHG (79-93); ALLENS TEST OK; INSPIRED O2 ROOM AIR
[2019-05-12 15:15] LABS: PATIENT TEMP 96.6; VENTILATOR NO
[2019-05-12 16:33] VITALS: BP 178/82
--- NOTE | 2019-05-12 17:54 | Consultation-Cardiology ---
HPI-Cardiology Cardiology Consultation: Date of Consultation 05/12/19 Date of Admission Attending Physician Rayna Sepulveda DO Admitting Physician Rafita oLve MD Consulting Physician Melinda LLANES MD HPI: Time Seen by a Provider: 17:00 Chief Complaint: Shortness of breath This is a 63-year-old lady with previous history of PCI and CAD, chronic persistent atrial fibrillation. She also has known history of COPD and presents with worsening shortness of breath and cough. She has nonproductive cough. She denies any chest pain, nausea, vomiting, diaphoresis. She is had numerous adm issions for COPD exacerbation. Review of Systems-Cardiology Review of Systems Constitutional: As described under HPI; No As described under HPI, No no symptoms reported, No chills, No fever, No lightheadedness Eyes: No As described under HPI, No no symptoms reported, No blindness, No blurred vision, No contact lenses, No drainage, No decreased acuity, No foreign body sensation, No pain, No vision change Ears/Nose/Throat: No As described under HPI, No no symptoms reported, No chronic hearing loss, No ear discharge, No ear pain, No nasal drainage, No ulcerations Respiratory: No no symptoms reported; As described under HPI; No As described under HPI, No cough, No orthopnea; shortness of breath; No SOB with excertion Cardiovascular: No no symptoms reported; As described under HPI; No As described under HPI, No chest pain, No edema, No irregular heart rate, No lightheadedness, No palpitations Gastrointestinal: No no symptoms reported, No As described under HPI, No abdomen distended, No abdominal pain, No blood streaked bowels, No constipation, No diarrhea, No nausea, No vomiting, No stool coloration changes Genitourinary: No As described under HPI, No burning, No dysuria, No discharge, No frequency, No flank pain, No hematuria, No urgency : Yes : No Skin: No rash, No skin related problems, No ulcerations Psychiatric/Neurological: No anxiety, No depression, No seizure, No focal weakness, No syncope Hematologic: No bleeding abnormalities All Other Systems Reviewed Negative Unless Noted: Yes ZEI-Mvjkgl-Loirvt Hx Patient Social History Alcohol Use: Denies Use Recreational Drug Use: No Smoking Status: Never a Smoker 2nd Hand Smoke Exposure: No Recent Foreign Travel: No Recent Infectious Disease Expo: No Hospitalization with Isolation: Denies Immunizations Up To Date Tetanus Booster (TDap): Unknown Date of Pneumonia Vaccine: Oct 29, 2017 Date of Influenza Vaccine: Jul 29, 2018 Past Medical History PMH As described under Assessment. Family Medical History Family History: Colon cancer G8 BROTHER Diabetes mellitus G8 BROTHER G8 SISTER FHx: heart disease 19 FATHER 19 MOTHER Myocardial infarction 19 FATHER G8 SISTER Allergies and Home Medications Allergies Coded Allergies: Penicillins (Verified Allergy, Unknown, 03/12/17) Sulfa (Sulfonamide Antibiotics) (Verified Allergy, Unknown, 03/12/17) adhesive tape (Verified Allergy, Unknown, 03/12/17) Home Medications Albuterol Sulfate 1 Puff Puff, 1 PUFF INH Q6H PRN for SHORTNESS OF BREATH, (Reported) Amlodipine Besylate 10 Mg Tablet, 10 MG PO DAILY, (Reported) Apixaban 5 Mg Tablet, 5 MG PO BID, (Reported) Atorvastatin Calcium 40 Mg Tablet, 40 MG PO HS, (Reported) Cetirizine HCl 10 Mg Tablet, 10 MG PO DAILY, (Reported) Clopidogrel Bisulfate 75 Mg Tablet, 75 MG PO DAILY, (Reported) Fluticasone Propionate 16 Gm [place].susp, 2 SPRAY NS DAILY, (Reported) Fluticasone/Salmeterol 1 Each Blst.w.dev, 1 PUFF INH BID, (Reported) Fluticasone/Vilanterol 1 Each Blst.w.dev, 1 PUFF PO DAILY, (Reported) Hydrochlorothiazide 25 Mg Tablet, 25 MG PO DAILY, (Reported) Ipratropium/Albuterol Sulfate 3 Ml Ampul.neb, 3 ML IH Q4H PRN for SHORTNESS OF BREATH, (Reported) Isosorbide Mononitrate 60 Mg Tab, 60 MG PO DAILY, (Reported) Levofloxacin 750 Mg Tablet, 750 MG PO DAILY, (Reported) PICKED UP A 10 DAY SUPPLY ON 05-09-2019 AND TOOK 4 DOSES Montelukast Sodium 10 Mg Tablet, 10 MG PO HS PRN for allergies, (Reported) Omeprazole 20 Mg Capsule.dr, 20 MG PO DAILY PRN for HEARTBURN, (Reported) Ondansetron 4 Mg Tab.rapdis, 4 MG PO Q6H PRN for NAUSEA/VOMITING-1ST LINE, (Reported) Prednisone 20 Mg Tab, 20 MG PO UD, (Reported) takes 3 tabs x2 days, then 2 tabs 2 x2 days, then 1 tab x2 days (picked up on 05-09-2019) Spironolactone 25 Mg Tablet, 25 MG PO DAILY, (Reported) Tramadol HCl 50 Mg Tablet, 50 MG PO Q4H PRN for PAIN-MODERATE, (Reported) Patient Home Medication List Home Medication List Reviewed: Yes Physical Exam-Cardiology Physical Exam Vital Signs/I&O 05/13/19 05/13/19 05/13/19 05/13/19 00:00 01:00 02:11 04:35 Temp 97.2 97.5 Pulse 73 60 56 Resp 18 16 B/P (MAP) 132/81 (98) 127/83 (98) Pulse Ox 97 96 98 O2 Delivery Room Air Nasal Cannula Room Air O2 Flow Rate 3.00 FiO2 96 05/13/19 05/13/19 05/13/19 05/13/19 06:26 07:00 07:59 10:30 Temp 96.9 Pulse 61 67 Resp 20 B/P (MAP) 139/79 (99) Pulse Ox 96 97 97 O2 Delivery Nasal Cannula High Flow N/C Nasal Cannula O2 Flow Rate 3.00 2.50 3.00 05/12/19 23:59 Intake Total 510 ml Balance 510 ml Capillary Refill : Less Than 3 Seconds Constitutional: appears stated age, AAO x 3; No apparent distress; well- developed, well-nourished HEENT: PERRL; No normal ENT inspection, No TMs normal, No pharynx normal, No scleral icterus (R), No scleral icterus (L), No pale conjunctivae (R), No pale conjunctivae (L), No photophobia, No TM abnormal (R), No TM abnormal (L), No pharyngeal erythema, No tonsillar exudate, No other, No discharge, No EOMI; hearing is well preserved; No hard of hearing; oral hygience is good; No ulceration, No xanthelasmas are seen Neck: No non-tender, No full range of motion, No supple, No normal inspection, No carotid bruit, No limited range of motion, No lymphadenopathy (R), No lymphadenopathy (L), No tender lateral, No tender midline, No thyromegaly, No other; carotid pulses are 2 + bilaterally; No with good upstrokes Respiratory: chest is bilaterally symmetric, lungs clear to auscultation Cardiovascular: irregularly irregular; No extra beats, No parasternal heave is noted, No JVD, No edema, No bradycardia, No tachycardia, No point of maximal impulse, No cardiac thrills are palpable; S1 and S2; No gallop/S3, No gallop/S4, No diastolic murmur, No systolic murmur, No friction rub, No click, No other Gastrointestinal: No tender, No soft, No round, No distended, No pulsatile mass, No organomegaly, No guarding, No rebound, No tenderness, No hernia, No mass, No audible bowel sounds, No abnormal bowel sounds, No abdominal bruits, No spleenomegaly, No other Rectal: deferred Extremities: No normal range of motion, No non-tender, No normal inspection, No pedal edema, No calf tenderness, No normal capillary refill, No pelvis stable, No calf tenderness, No inflammation, No pedal edema, No slow capillary refill, No swelling, No other, No abrasion, No clubbing, No cyanosis, No ecchymosis, No laceration, No no lower extremity edema bilateral, No significant edema, No tenderness, No wound Neurologic/Psychiatric: no motor/sensory deficits, alert, normal mood/affect, oriented x 3, power is 5/5 both on sides Skin: No rash, No ulcerations Data Review Labs Laboratory Tests 05/12/19 13:23: White Blood Count 12.6H, Red Blood Count 5.10, Hemoglobin 15.0, Hematocrit 46, Mean Corpuscular Volume 90, Mean Corpuscular Hemoglobin 29, Mean Corpuscular Hemoglobin Concent 33, Red Cell Distribution Width 13.7, Platelet Count 246, Mean Platelet Volume 11.0H, Neutrophils (%) (Auto) 88H, Lymphocytes (%) (Auto) 8L, Monocytes (%) (Auto) 2, Eosinophils (%) (Auto) 1, Basophils (%) (Auto) 1, Neutrophils # (Auto) 11.0H, Lymphocytes # (Auto) 0.9L, Monocytes # (Auto) 0.3, Eosinophils # (Auto) 0.1, Basophils # (Auto) 0.1, Sodium Level 139, Potassium Level 3.7, Chloride Level 101, Carbon Dioxide Level 24, Anion Gap 14, Blood Urea Nitrogen 19H, Creatinine 0.87, Estimat Glomerular Filtration Rate > 60, BUN/Creatinine Ratio 22, Glucose Level 189H, Calcium Level 9.6, Corrected Calcium 9.4, Total Bilirubin 0.6, Aspartate Amino Transf (AST/SGOT) 17, Alanine Aminotransferase (ALT/SGPT) 17, Alkaline Phosphatase 52, Troponin I < 0.30, Pro-B-Type Natriuretic Peptide 1730.0H, Total Protein 7.0, Albumin 4.3 05/12/19 14:30: Urine Color YELLOW, Urine Clarity CLEAR, Urine pH 5.0, Urine Specific [place] 1.025H, Urine Protein NEGATIVE, Urine Glucose (UA) NEGATIVE, Urine Ketones NEGATIVE, Urine Nitrite NEGATIVE, Urine Bilirubin NEGATIVE, Urine Urobilinogen 0.2, Urine Leukocyte Esterase NEGATIVE, Urine RBC (Auto) NEGATIVE, Urine RBC N ONE, Urine WBC RARE, Urine Crystals NONE, Urine Bacteria NEG, Urine Casts NONE, Urine Mucus NEGATIVE, Urine Culture Indicated NO 05/12/19 15:00: Blood Gas Puncture Site RT RADIAL, Blood Gas Patient Temperature 96.6, Arterial Blood pH 7.46H, Arterial Blood Partial Pressure CO2 35, Arterial Blood Partial Pressure O2 68L, Arterial Blood HCO3 25, Arterial Blood Total CO2 26.0, Arterial Blood Oxygen Saturation 94, Arterial Blood Base Excess 1.3, Doni Test OK, Blood Gas Ventilator Setting NO, Blood Gas Inspired Oxygen ROOM AIR 05/13/19 04:55: White Blood Count 8.9, Red Blood Count 4.98, Hemoglobin 14.3, Hematocrit 43, Mean Corpuscular Volume 87, Mean Corpuscular Hemoglobin 29, Mean Corpuscular Hemoglobin Concent 33, Red Cell Distribution Width 14.0, Platelet Count 241, Mean Platelet Volume 10.9H, Neutrophils (%) (Auto) 87H, Lymphocytes (%) (Auto) 12, Monocytes (%) (Auto) 1, Eosinophils (%) (Auto) 0, Basophils (%) (Auto) 0, Neutrophils # (Auto) 7.8, Lymphocytes # (Auto) 1.1, Monocytes # (Auto) 0.1, Eosinophils # (Auto) 0.0, Basophils # (Auto) 0.0, Sodium Level 138, Potassium Level 3.5L, Chloride Level 102, Carbon Dioxide Level 23, Anion Gap 13, Blood Urea Nitrogen 29H, Creatinine 1.21, Estimat Glomerular Filtration Rate 45, BU N/Creatinine Ratio 24, Glucose Level 200H, Calcium Level 9.8, Corrected Calcium 9.8, Total Bilirubin 0.4, Aspartate Amino Transf (AST/SGOT) 12, Alanine Aminotransferase (ALT/SGPT) 14, Alkaline Phosphatase 48, Total Protein 6.5, Albumin 4.0 ECG Impression ECG Initial ECG Impression: Atrial Fibrillation A/P-Cardiology Assessment/Admission Diagnosis Shortness of breath, likely multi-factorial, acute exacerbation of COPD, bronchial asthma Acute on chronic exacerbation of severe COPD - managed by Dr. Thomas Bronchial asthma - managed by Dr. Thomas Acute on chronic diastolic CHF - tx with diuretics Obesity-hypoventilation syndrome with nocturnal hypoxia Chronic persistent atrial fibrillation - OAC with Eliquis Echocardiogram of 01-23-[address] Carolina showed LVH. LVEF 70-75%. Grade 3 diastolic dysfunction. LA and RA dilated. Mild MR. Mild to mod TR. PASP 40-45mmHg. Small pericardial effusion, which is chronic, seen on echo of 07-10-17 and February 2017. CAD. Her primary fashion editor is Dr Knapp at [facility] - Cardiac cath of 07-27-[address] [facility] - 70% left main stenosis prox, 50% prox LAD occlusion. The prox/ostial left main was stented with a 4.0 x 12 mm Synergy stent History of PVCs previously maintained on Coreg which was discontinued d/t episodes of bradycardia Hypertension - not well controlled Electrolyte abnormalities - replace Plan Agree with diuretics for acute on chronic congestive diastolic heart failure. Continue dual antiplatelet therapy. Continue Eliquis as for atrial fibrillation. Echocardiogram. d Thank you for your consultation. Please call me if you have any questions. Brooke Llanes MD, FACP, FACC, FSCAI, FHRS, CCDS Interventional Cardiology Cardiac Electrophysiology Vascular Medicine and Endovascular Interventions Melinda LLANES MD May 12, 2019 17:54
[2019-05-12] MEDS ORDERED: CATHETER FLUSH 10 ML SYR IV PRN (18:00)
--- NOTE | 2019-05-12 18:46 | NUR ---
JAIDEN ZELAYA admitted to room 416-1, with an admitting diagnosis of COPD EXACERBATION AND RESPIRATORY PROBLEMS, on 05/12/19 from [facility] via W/C, accompanied by EMS STAFF. JAIDEN ZELAYA introduced to surroundings, call light, bed controls, phone, TV, temperature control, lights, meal times, smoking policy, visitor policy, side rail policy, bathrooms and showers. Patient Rights given to patient in the handbook. JAIDEN ZELAYA verbalizes understanding that [facility] is not responsible for the loss or damage to any personal effects or valuables that are kept in the patients possession during their hospitalization.
[2019-05-12 19:15] VITALS: BP 149/77
[2019-05-12] MEDS: RT-ALBUTEROL/IPRATROPIUM 3 ML (DUONEB) VIAL IH SCH ×2 (19:22→22:35)
[2019-05-12] MEDS ORDERED: guaiFENesin/CODEINE (ROBITUSSIN AC) 10ML UDC PO PRN (19:45)
[2019-05-12] MEDS ORDERED: ONDANSETRON 4 MG (ZOFRAN) ORAL DISSOLVE TAB PO PRN (19:45)
[2019-05-12] MEDS ORDERED: ACETAMINOPHEN 500 MG TAB (TYLENOL) PO PRN (19:45)
[2019-05-12] MEDS ORDERED: IBUPROFEN TABLET 200 MG TAB PO PRN (19:45)
[2019-05-12] MEDS ORDERED: ONDANSETRON 4 MG/2 ML (SDV) Z0FRAN IVP PRN (19:45)
[2019-05-12] MEDS ORDERED: MELATONIN 3 MG TABLET PO PRN (19:45)
[2019-05-12] MEDS ORDERED: LOPERAMIDE 2 MG (IMODIUM) TABLET PO PRN (19:45)
[2019-05-12] MEDS ORDERED: DOCUSATE SODIUM 100 MG (COLACE) CAP PO PRN (19:45)
[2019-05-12] MEDS ORDERED: fentaNYL INJECTION 100 MCG/2 ML AMP IVP PRN (19:45)
[2019-05-12] MEDS ORDERED: ALPRAZolam 0.25 MG (XANAX) TAB PO PRN (19:45)
[2019-05-12] MEDS ORDERED: CALCIUM CARBONATE 500 MG (TUMS) TAB.CHEW PO PRN (19:45)
[2019-05-12] MEDS: methylPREDNISolone 125 MG (Solu-MEDROL) VIAL IV SCH (20:42)
[2019-05-12] MEDS: SENNA W/DOCUSATE (SENOKOT S) TABLET PO SCH (20:43)
[2019-05-12] MEDS: HYDROcodone/APAP 5 MG/325 MG (LORTAB) TAB PO PRN (20:44)
[2019-05-12] MEDS: CATHETER FLUSH 10 ML SYR IV SCH (22:07)
[2019-05-13] VITALS (7 sets, daily range): BP systolic 127–166; BP diastolic 67–83
[2019-05-13] MEDS: RT-ALBUTEROL/IPRATROPIUM 3 ML (DUONEB) VIAL IH SCH ×7 (02:10→22:38)
[2019-05-13] MEDS: methylPREDNISolone 125 MG (Solu-MEDROL) VIAL IV SCH ×2 (02:45→07:43)
[2019-05-13] MEDS: HYDROcodone/APAP 5 MG/325 MG (LORTAB) TAB PO PRN ×2 (02:45→20:31)
[2019-05-13 05:18] LABS: BASOPHILS % (AUTO) 0 % (0-10); EOSINOPHILS % (AUTO) 0 % (0-10); HEMATOCRIT 43 % (35-52); HEMOGLOBIN 14.3 G/DL (11.5-16.0); LYMPHOCYTES # (AUTO) 1.1 X 10^3 (1.0-4.0); LYMPHOCYTES % (AUTO) 12 % (12-44); MEAN CORPUSCULAR HEMOGLOBIN 29 PG (25-34); MEAN CORPUSCULAR HGB CONC 33 G/DL (32-36); MEAN CORPUSCULAR VOLUME 87 FL (80-99); MEAN PLATELET VOLUME 10.9 FL (7.4-10.4); MONOCYTES # (AUTO) 0.1 X 10^3 (0.0-1.0); MONOCYTES % (AUTO) 1 % (0-12); NEUTROPHILS # (AUTO) 7.8 X 10^3 (1.8-7.8); NEUTROPHILS % (AUTO) 87 % (42-75); PLATELET COUNT 241 10^3/uL (130-400); WHITE BLOOD COUNT 8.9 10^3/uL (4.3-11.0)
[2019-05-13 05:42] LABS: BILIRUBIN,TOTAL 0.4 MG/DL (0.1-1.0); CALCIUM 9.8 MG/DL (8.5-10.1); CREATININE SERUM 1.21 MG/DL (0.60-1.30); POTASSIUM 3.5 MMOL/L (3.6-5.0); TOTAL PROTEIN 6.5 GM/DL (6.4-8.2)
[2019-05-13] MEDS: CATHETER FLUSH 10 ML SYR IV SCH ×3 (06:39→22:00)
[2019-05-13] MEDS: SENNA W/DOCUSATE (SENOKOT S) TABLET PO SCH ×2 (07:42→20:32)
--- NOTE | 2019-05-13 08:11 | Pulmonary Consultation ---
History of Present Illness History of Present Illness Date of Consultation 05/13/19 08:05 Time Seen by Provider: 08:06 Date of Admission History of Present Illness 63yo with hx of COPD and multiple hospitalizations secondary to COPDAE presented secondary to worsening SOB rebecca with exertion and nonproductive cough over the last 7 days. She was treated with Levaquin and steroid taper by her PCP however her symptoms continued to worsen. denies fevers, chills chest pain, nausea, and vomiting. I am consulted for pulmonary management. Allergies and Home Medications Allergies Coded Allergies: Penicillins (Verified Allergy, Unknown, 03/12/17) Sulfa (Sulfonamide Antibiotics) (Verified Allergy, Unknown, 03/12/17) adhesive tape (Verified Allergy, Unknown, 03/12/17) Home Medications Albuterol Sulfate 1 Puff Puff, 1 PUFF INH Q6H PRN for SHORTNESS OF BREATH, (Reported) Amlodipine Besylate 10 Mg Tablet, 10 MG PO DAILY, (Reported) Apixaban 5 Mg Tablet, 5 MG PO BID, (Reported) LAST FILLED #60 07-21-18 Atorvastatin Calcium 40 Mg Tablet, 40 MG PO HS, (Reported) Cetirizine HCl 10 Mg Tablet, 10 MG PO DAILY, (Reported) Clopidogrel Bisulfate 75 Mg Tablet, 75 MG PO DAILY, (Reported) Fluticasone Propionate 16 Gm [place].susp, 2 SPRAY NS DAILY, (Reported) Fluticasone/Salmeterol 1 Each Blst.w.dev, 1 PUFF INH BID, (Reported) LAST FILLED 11-20-18 30 DAY SUPPLY Hydrochlorothiazide 25 Mg Tablet, 25 MG PO DAILY, (Reported) Ipratropium/Albuterol Sulfate 3 Ml Ampul.neb, 3 ML IH Q4H PRN for SHORTNESS OF BREATH, (Reported) Isosorbide Mononitrate 60 Mg Tab, 60 MG PO DAILY, (Reported) Losartan Potassium 100 Mg Tablet, 100 MG PO DAILY Prescribed by: CONNOR KIM on 01/27/19 1118 Montelukast Sodium 10 Mg Tablet, 10 MG PO HS, (Reported) Nitroglycerin 0.4 Mg Tab.subl, 0.4 MG SL UD PRN for CHEST PAIN, (Reported) Omeprazole 20 Mg Capsule.dr, 20 MG PO DAILY PRN for HEARTBURN, (Reported) Ondansetron 4 Mg Tab.rapdis, 4 MG PO Q6H PRN for NAUSEA/VOMITING-1ST LINE, (Reported) Prednisone 10 Mg Tab, 40 MG PO UD 4 X2 DAYS, 3 X2 DAYS, 2 X2 DAYS, 1 X2 DAYS Prescribed by: CONNOR KIM on 01/27/19 1118 Spironolactone 25 Mg Tablet, 25 MG PO DAILY, (Reported) Tramadol HCl 50 Mg Tablet, 50 MG PO Q4H PRN for PAIN-MODERATE, (Reported) Past Bjnipsl-Zlcehd-Pyvmqh Hx Patient Social History Alcohol Use: Denies Use Recreational Drug Use: No Smoking Status: Never a Smoker 2nd Hand Smoke Exposure: No Recent Foreign Travel: No Contact w/Someone Who Travel: No Recent Infectious Disease Expo: No Recent Hopitalizations: No Physical Abuse: No Sexual Abuse: No Mistreated: No Fear: No Immunizations Up To Date Tetanus Booster (TDap): Unknown Date of Pneumonia Vaccine: Oct 29, 2017 Date of Influenza Vaccine: Jul 29, 2018 Seasonal Allergies Seasonal Allergies: No Past Medical History Surgeries: Yes Appendectomy, Coronary Stent, Tonsillectomy Respiratory: Yes Asthma, COPD Currently Using CPAP: Yes Currently Using BIPAP: No Cardiac: Yes Coronary Artery Disease, Hypertension Neurological: No Reproductive Disorders: No Sexually Transmitted Disease: No HIV/AIDS: No Genitourinary: Yes (Left kidney partially removed d/t cancer) Bladder Infection, UTI-Chronic Gastrointestinal: No Gastroesophageal Reflux Musculoskeletal: No Arthritis, Chronic Back Pain Endocrine: No HEENT: No Loss of Vision: Bilateral Hearing Impairment: Denies Cancer: Yes Kidney Did You Recieve Any Treatments: Yes What Type of Treatment Did You: Surgical Intervention Psychosocial: No Anxiety, Depression Integumentary: No Blood Disorders: No Adverse Reaction/Blood Tranf: No Family Medical History Colon cancer G8 BROTHER Diabetes mellitus G8 BROTHER G8 SISTER FHx: heart disease 19 FATHER 19 MOTHER Myocardial infarction 19 FATHER G8 SISTER COPD Review of Systems Time Seen by Provider: 08:11 Constitutional: Weakness, Malaise; No: Fever, Chills, Sweats Eyes: No: Pain, Vision change, Conjunctivae inflammation, Eyelid inflammation, Other, Redness ENT: Nose congestion; No: Ear pain, Ear discharge, Nose pain, Nose discharge, Mouth pain, Mouth swelling, Throat pain, Throat swelling, Other Respiratory: Cough, Dry, Shortness of breath, SOB with excertion, Wheezing Cardiovascular: Paroxysmal Noc. Dyspnea; No: Chest Pain, Palpitations, Orthopnea, Edema, Lt Headedness, Other Gastrointestinal: No: Nausea, Vomiting, Abdominal Pain, Diarrhea, Constipation, Melena, Hematochezia, Other Sepsis Event Evaluation Height, Weight, BMI Height: 5'5.00" Weight: 193lbs. 6.1oz. [id number]; 36.9 BMI Method:Stated Exam Exam Vital Signs Date Time Temp Pulse Resp B/P (MAP) Pulse Ox O2 Delivery O2 Flow Rate FiO2 05/13/19 07:59 96.9 67 20 139/79 (99) 97 High Flow N/C 2.50 05/13/19 06:26 96 Nasal Cannula 3.00 05/13/19 04:35 97.5 56 16 127/83 (98) 98 Room Air 05/13/19 02:11 96 Nasal Cannula 3.00 96 05/13/19 01:00 60 05/13/19 00:00 97.2 73 18 132/81 (98) 97 Room Air 05/12/19 22:36 96 Nasal Cannula 3.00 94 05/12/19 20:00 Room Air 96.00 05/12/19 19:23 93 Room Air 05/12/19 19:17 90 05/12/19 19:15 97.7 70 20 149/77 (101) 96 Room Air 05/12/19 18:37 96 Room Air 05/12/19 16:33 97.8 95 18 178/82 (114) 96 Room Air 05/12/19 16:33 97.8 95 18 178/82 96 Room Air 05/12/19 16:00 96.6 83 20 161/86 (111) 95 Room Air 05/12/19 13:18 98.3 100 20 204/98 (133) 97 Room Air I & O 05/13/19 07:00 Intake Total 710 ml Balance 710 ml Height & Weight Height: 5'5.00" Weight: 193lbs. 6.1oz. 87.694074aq; 36.9 BMI Method:Stated General Appearance: Chronically ill, Mild Distress HEENT: PERRL/EOMI Neck: Full Range of Motion, Supple Respiratory: Accessory Muscle Use, Decreased Breath Sounds, Respiratory D istress, Wheezing Cardiovascular: Regular Rate, Rhythm Capillary Refill: Less Than 3 Seconds Extremity: Normal Capillary Refill Neurologic/Psychiatric: Alert, Oriented x3 Skin: Normal Color, Warm/Dry Results Lab Laboratory Tests 05/12/19 13:23 05/13/19 04:55 Assessment/Plan Assessment/Plan COPDAE -Solumedrol - change to 40 IV Q 6 -SVNS Q 4 -ABG C02 35 -add advair Pulmonary edema probably secondary to CHF -Give 40mg of lasix x 1 -Cardiology following Hypokalemia -replace Morbid obesity DRISS FUNES DO May 13, 2019 08:11
[2019-05-13] MEDS ORDERED: FUROSEMIDE 40 MG/4 ML INJ (LASIX) IVP NR (08:21)
[2019-05-13] MEDS ORDERED: KCL 20 MEQ TAB (K-DUR) PO NR (08:23)
[2019-05-13] MEDS ORDERED: LEVO750T39 PO (08:25)
[2019-05-13] MEDS ORDERED: LISI40TA PO (08:25)
[2019-05-13] MEDS ORDERED: FLUT1BLS PO (08:25)
[2019-05-13] MEDS ORDERED: PRD20T PO (08:25)
[2019-05-13] MEDS ORDERED: HYDR50TA3 PO (08:25)
[2019-05-13] MEDS ORDERED: CARV6.252 PO (08:25)
[2019-05-13] MEDS ORDERED: NS IV 500 ML 500 ML ONE (08:52)
[2019-05-13] MEDS ORDERED: NS IV 500 ML 500 ML IV ONE (09:00)
[2019-05-13] MEDS: POTASSIUM CL 10MEQ/50ML IVPB 50 ML IV SCH ×4 (09:00→13:10)
[2019-05-13] MEDS: LORATADINE (CLARITIN) 10 MG TAB PO SCH (09:00)
--- NOTE | 2019-05-13 09:44 | History & Physical-Hospitalist ---
History of Present Illness HPI/Chief Complaint Chief complaint: Shortness of breath HPI: This is a 63yoWF with severe COPD and HIRO who presented to the [facility] with SOB and found to be hypoxic and in need of IV steroids for severity of exacerbation of COPD. She had been placed on Levaquin and Prednisone dose by Dr. Love her PCP on Sunday but she worsened to the point that she failed outpatient treatment so she will need inpatient close monitoring with cardiology and pulmonology. Her BNP was elevated and cardiology will be managing that as necessary. PT and OT will be ordered. Potassium of 3.5 is being supplemented, Lasix of 40 Mg IV given and Solumendrol dose was titrated down from 90 Mg IV Q6HRs to [address] Thomas. Sliding scale insulin regimen will be initiated with AC and HS checks abiding by the A level of Novolog and home medications will be restarted after reconcile by pharmacy. Echocardiogram is ordered. Her regular buzzsaw operator is Dr. Knapp. She reports that she has had three separate exacerbations since I last saw her in December when I admitted her at that time so she really meets criteria for rehab and close monitoring by cardiology and pulmonology to decrease the chance of exacerbations of COPD. Source: patient Exam Limitations: no limitations Date Seen 05/13/19 Time Seen by a Provider: 09:00 Attending Physician Rayna Mcguire Pankaj K MD Referring Physician Date of Admission May 12, 2019 at 14:45 Home Medications & Allergies Home Medications Reviewed patient Home Medication Reconciliation performed by pharmacy medication reconciliations industrial service technician and/or nursing. Patients Allergies have been reviewed. Allergies Allergies Coded Allergies Penicillins (Verified Allergy, Unknown, 03/12/17) Sulfa (Sulfonamide Antibiotics) (Verified Allergy, Unknown, 03/12/17) adhesive tape (Verified Allergy, Unknown, 03/12/17) Past Yepovje-Arjhws-Vnynow Hx Past Med/Social Hx: Reviewed Nursing Past Med/Soc Hx, Reviewed and Corrections made Patient Social History Marrital Status: Employed/Student: retired Alcohol Use: Denies Use Recreational Drug Use: No Smoking Status: Never a Smoker 2nd Hand Smoke Exposure: No Recent Foreign Travel: No Contact w/other who traveled: No Recent Hopitalizations: No Recent Infectious Disease Expo: No Immunizations Up To Date Tetanus Booster (TDap): Unknown Date of Pneumonia Vaccine: Oct 29, 2017 Date of Influenza Vaccine: Jul 29, 2018 Seasonal Allergies Seasonal Allergies: No Past Medical History Surgeries: Appendectomy, Coronary Stent, Tonsillectomy Respiratory: Asthma, COPD, Pneumonia, Sleep Apnea Currently Using CPAP: Yes Currently Using BIPAP: No Cardiac: Coronary Artery Disease, Hypertension Reproductive: No Sexually Transmitted Disease: No HIV/AIDS: No Genitourinary: Bladder Infection, UTI-Chronic Gastrointestinal: Gastroesophageal Reflux Musculoskeletal: Arthritis, Chronic Back Pain Loss of Vision: Bilateral Hearing Impairment: Denies Cancer: Kidney Did You Recieve Any Treatments: Yes What Type of Treatment Did You: Surgical Intervention Psychosocial: Anxiety, Depression History of Blood Disorders: No Adverse Reaction to Blood [place]: No Family History Colon cancer G8 BROTHER Diabetes mellitus G8 BROTHER G8 SISTER FHx: heart disease 19 FATHER 19 MOTHER Myocardial infarction 19 FATHER G8 SISTER COPD Review of Systems Constitutional: see HPI, weakness EENTM: no symptoms reported Respiratory: cough, dyspnea on exertion, orthopnea, short of breath, wheezing Cardiovascular: no symptoms reported Gastrointestinal: no symptoms reported Genitourinary: no symptoms reported Musculoskeletal: no symptoms reported Skin: no symptoms reported Psychiatric/Neurological: No Symptoms Reported All Other Systems Reviewed Negative Unless Noted: Yes Physical Exam Physical Exam Vital Signs Vital Signs - First Documented 05/12/19 05/12/19 05/12/19 13:18 20:00 22:36 Temp 98.3 Pulse 100 Resp 20 B/P (MAP) 204/98 (133) Pulse Ox 97 O2 Delivery Room Air O2 Flow Rate 96.00 FiO2 94 Capillary Refill : Less Than 3 Seconds Height, Weight, BMI Height: 5'5.00" Weight: 193lbs. 6.1oz. 87.498606ne; 36.9 BMI Method:Stated General Appearance: WD/WN, Anxious, Chronically ill, Mild Distress, Obese Eyes: Right Eye Normal Inspection, Right Eye PERRL HEENT: PERRL/EOMI, Normal ENT Inspection, Pharynx Normal, Moist Mucous Membranes Neck: Full Range of Motion, Normal Inspection, Non Tender Respiratory: Chest Non Tender, No Accessory Muscle Use, No Respiratory Distre ss, Accessory Muscle Use, Crackles, Decreased Breath Sounds, Wheezing Cardiovascular: Regular Rate, Rhythm, No Edema, No Gallop, No JVD, No Murmur, Normal Peripheral Pulses Gastrointestinal: Normal Bowel Sounds, No Organomegaly, No Pulsatile Mass, Non Tender, Soft Back: Normal Inspection, No CVA Tenderness, No Vertebral Tenderness Extremity: Normal Capillary Refill, Normal Inspection, Normal Range of Motion, Non Tender, No Calf Tenderness, No Pedal Edema Neurologic/Psychiatric: Alert, Oriented x3, No Motor/Sensory Deficits, Normal Mood/Affect Skin: Normal Color, Warm/Dry Lymphatic: No Adenopathy Results Results/Procedures Labs Laboratory Tests 05/12/19 13:23 05/13/19 04:55 Patient resulted labs reviewed. Assessment/Plan Admission Diagnosis Assessment: Acute exacerbation of COPD failed outpatient antibiotic and steroid regimen Acute exacerbation of diastolic heart failure requiring diuretics Obesity hypoventilation syndrome Obstructive sleep apnea sees Dr. Thomas regularly Atrial fibrillation Hypertension Obesity Bradycardia episodes Chronic oral anticoagulation CAD previous stents placed Plan: IV steroids Cardiology and pulmonology consultations are appreciated Maximum nebulized treatments and oxygen supplementation May need BiPAP Monitor labs Home meds Maintain oral anticoagulation Admission Status: Inpatient Order (span 2 midnights) Reason for Inpatient Admission: Severe respir insuff will require 5 days Diagnosis/Problems Diagnosis/Problems (1) COPD exacerbation Status: Acute (2) Atrial fibrillation Status: Chronic Qualifiers: Atrial fibrillation type: chronic Qualified Codes: I48.2 - Chronic atrial fibrillation (3) Diastolic CHF Status: Acute Qualifiers: Heart failure chronicity: acute Qualified Codes: I50.31 - Acute diastolic (congestive) heart failure (4) Essential (primary) hypertension Status: Chronic (5) CAD (coronary artery disease) Status: Chronic Qualifiers: Coronary Disease-Associated Artery/Lesion type: [place] artery [place] vs. transplanted heart: [place] heart Associated angina: without angina Qualified Codes: I25.10 - Atherosclerotic heart disease of [place] coronary artery without angina pectoris (6) Debility Status: Chronic (7) Obesity hypoventilation syndrome Status: Chronic (8) Pulmonary HTN Status: Chronic (9) Respiratory failure Status: Acute Qualifiers: Chronicity: acute Respiratory failure complication: hypoxia Qualified Codes: J96.01 - Acute respiratory failure with hypoxia (10) Debility Status: Chronic (11) Morbid obesity Status: Chronic (12) On continuous oral anticoagulation Status: Chronic (13) Bradycardia Status: Acute Clinical Quality Measures DVT/VTE Risk/Contraindication: Risk Factor Score Per Nursin RFS Level Per Nursing on Admit: 4+=Very High RAYNA MCGUIRE DO May 13, 2019 09:44
--- NOTE | 2019-05-13 09:58 | NUR ---
RT notified via phone call and again in person of Advair order
--- NOTE | 2019-05-13 10:12 | NUR ---
SPOKE WITH PATIENT & HER DAUGHTER (SHE TAKES CARE OF HER MEDS) WELL GOING OVER THE EXT MED HISTORY TO COMPLETE THE MED REC. PATIENT AND DAUGHTER STATES SHE IS ON THE HCTZ 25MG ONLY, SHE IS NOT TAKING THE 50 MG THE [facility] HAS FILLED. SHE IS NO LONGER TAKING THE LISINOPRIL, LOSARTAN AND CARVEDILOL. 03-10-2019 CETIRIZINE WAS PICKED UP FROM [facility] 05-09-2019 LEVAQUIN 10 DAY SUPPLY WAS PICKED UP AND 4 DOSES WERE TAKEN 05-09-2019 PREDNISONE 6 DAY SUPPLY WAS PICKED UP, 3 TABS X 2 DAYS, 2 TABS X 2 DAYS, THEN 1 TABS X 2 DAYS. PATIENT WAS ABLE TAKE 4 DAYS.
[2019-05-13] MEDS: inSUlin ASPART (NovoLOG) 1 UNIT/0.01 ML (CHARGE PER UNIT) SC SCH ×3 (11:31→21:44)
--- NOTE | 2019-05-13 13:45 | Physical Therapy Evaluation ---
PT Evaluation-General Medical Diagnosis Admission Date May 12, 2019 at 14:45 Medical Diagnosis: COPD exacerbation Onset Date: May 12, 2019 Therapy Diagnosis Therapy Diagnosis: debility Height/Weight Height (Feet): 5 Height (Inches): 5.00 Weight (Pounds): 193 Weight (Ounces): 6.1 Precautions Precautions/Isolations: Fall Prevention, Standard Precautions Referral Physician: Derick Reason for Referral: Evaluation/Treatment Medical History Pertinent Medical History: Atrial Fib, CAD, COPD, CVA, GERD, HTN Current History ER with worsening cough, diaphoresis, N&V Reviewed History: Yes Social History Home: Single Level Current Living Status: Spouse Prior/Core FIM Prior Level of Function Therapy Code Descriptions/Definitions Functional [place] Measure: 0=Not Assessed/NA 4=Minimal Assistance 1=Total Assistance 5=Supervision or Setup 2=Maximal Assistance 6=Modified [place] 3=Moderate Assistance 7=Complete [place] Therapy Quality Codes: 6 Independent with activity with or without an assistive device 5 Patient requires set up or clean up by helper. Patient completes activity by themselves 4 Supervision or touching assist (CGA). [place] provide cues , steadying assist 3 The helper provides less than half the effort to complete the activity 2 The helper provides more than half the effort to complete the activity 1 Dependent. The helper does all the effort to complete an activity 7 Patient refused to complete or attempt activity 9 The patient did not perform the activity before the current illness or injury 88 Not attempted due to Medical conditions or safety concerns Functional Abilities and Goals: Independent: Patient completed the activities by him/herself, with or without an assistive device, with no assistance from a helper. Needed Some Help: Patient needed partial assistance from another person to complete activities. Dependent: A helper completed the activities for the patient. Unknown: Not Applicable: Bed Mobility: 6 Transfers (B,C,W/C) (FIM): 6 Gait: 6 Stairs: 6 Indoor Mobility (Ambulation): Independent Stairs: Independent Prior Devices Use: Walker paid assistance at home for spouse and patient utilizes this as well per her report PT Evaluation-Current Subjective Patient agrees to PT. She is very distracted by watching TV. Became slightly agitated when PT requested the TV to be turned off. Pain Numeric Pain Scale: 0-No Pain Location: No Pain Reported Objective Patient Orientation: Normal For Age Problem Solving: Fair Attachments: Oxygen, IV ROM/Strength ROM Lower Extremities bilateral LE WFL Strength Lower Extremities 4-/5 grossly bilateral LE Integumentary/Posture Integumentary refer to nursing notes Bowel Incontinence: No Bladder Incontinence: No Posture WFL Neuromuscular (Tone, Coordination, Reflexes) grossly intact Sensory Vision: Functional Hearing: Functional Sensation Right Lower Extremit: Intact Sensation Left Lower Extremity: Intact Transfers Therapy Code Descriptions/Definitions Functional [place] Measure: 0=Not Assessed/NA 4=Minimal Assistance 1=Total Assistance 5=Supervision or Setup 2=Maximal Assistance 6=Modified [place] 3=Moderate Assistance 7=Complete [place] Transfers (B, C, W/C) (FIM): 6 Scootin Rollin Supine to/from Sit: 6 Sit to/from Stand: 6 Gait Mode of Locomotion: Walk Anticipated Mode of Locomotion: Walk Gait (FIM): 6 Distance (FIM): 3=150 ft Distance: 275' Gait Level of Assist: 6 Gait Assistive Device: FWW Comments/Gait Description steady, functional gait sequence with no deviation Balance Sitting Static: Normal Sitting Dynamic: Normal Standing Static: Normal Standing Dynamic: Normal Treatment SAO2 maintained >90% on RA with activity Assessment/Needs 63 y.o. female, will be seen x 2 sessions to address pulmonary function with functional mobility to ensure safe return to home with spouse and caregivers. Per patient report, patient performs minimal activity and skills at home prior to this admit. Rehab Potential: Fair Post Rehab Potential-Barriers: compliance PT Short Term Goals Short Term Goals Time Frame: May 14, 2019 Transfers (B,C,W/C) (FIM): 6 Gait (FIM): 6 Distance (FIM): 3=150 ft Gait Distance Comment: 275' Gait Level of Assist: 6 Gait Assistive Device: FWW PT Plan Treatment/Plan Treatment Plan: Continue Plan of Care Treatment Plan: Education, Functional Activity Tai[place], Gait, Safety, Therapeutic Exercise, Transfers Treatment Duration: May 14, 2019 Frequency: 2 times per week Estimated Hrs Per Day: .25 hour per day Patient and/or Family Agrees t: Yes Discharge Recommendations Therapy D/C Recommendations: Home w/ Family Support Time/GCodes Time In: 1240 Time Out: 1303 Total Billed Treatment Time: 23 Total Billed Treatment 1 visit EVModC 23 min SOLEDAD JAMES PT May 13, 2019 13:45
[2019-05-13] MEDS: methylPREDNISolone 40 MG/ML (Solu-MEDROL) VIAL IV SCH ×2 (14:05→20:30)
--- NOTE | 2019-05-13 14:30 | Occupational Therapy Eval ---
OT Evaluation-General/PLF Medical Diagnosis Admission Date May 12, 2019 at 14:45 Medical Diagnosis: COPD exacerbation Onset Date: May 12, 2019 Therapy Diagnosis Therapy Diagnosis: Weakness Height/Weight Height (Feet): 5 Height (Inches): 5.00 Weight (Pounds): 193 Weight (Ounces): 6.1 Precautions Precautions/Isolations: Fall Prevention, Standard Precautions Safety Interventions: None Weight Bear Status Weight Bearing Restriction: Weight Bearing/Tolerated Referral Physician: Derick Referral Reason: Activity Tolerance, Self Care, Evaluation/Treatment, Strengthening/ROM Medical History Pertinent Medical History: Atrial Fib, CAD, COPD, CVA, GERD, HTN Additional Medical History Coronary stent Current History Pt. up in chair. Agrees to work with OT. Reviewed History: Yes Social History Home: Single Level Current Living Status: Spouse Entry Into Home: Stairs With Railing Steps Into Home: 4 ADL-Prior Level of Function Therapy Code Descriptions/Definitions Functional [place] Measure: 0=Not Assessed/NA 4=Minimal Assistance 1=Total Assistance 5=Supervision or Setup 2=Maximal Assistance 6=Modified [place] 3=Moderate Assistance 7=Complete [place] Therapy Quality Codes: 6 Independent with activity with or without an assistive device 5 Patient requires set up or clean up by helper. Patient completes activity by themselves 4 Supervision or touching assist (CGA). [place] provide cues , steadying assist 3 The helper provides less than half the effort to complete the activity 2 The helper provides more than half the effort to complete the activity 1 Dependent. The helper does all the effort to complete an activity 7 Patient refused to complete or attempt activity 9 The patient did not perform the activity before the current illness or injury 88 Not attempted due to Medical conditions or safety concerns Functional Abilities and Goals: Independent: Patient completed the activities by him/herself, with or without an assistive device, with no assistance from a helper. Needed Some Help: Patient needed partial assistance from another person to complete activities. Dependent: A helper completed the activities for the patient. Unknown: Not Applicable: ADL PLOF Comments Pt. reports that she has a french translator caregiver. States that she herself receives 13 hours per week, but that her 's caregiver is there every day all day. She states that her 's caregiver assists her as well. She receives full assist for bathing/dressing, per pt., and for cooking, cleaning. Pt. wears oxygen at home only at night. 3L. Self Care: Needed Some Help Functional Cognition: Unknown DME/Equipment: Bath Chair, Tub/Shower DME/Equipment Comments Pt. states that she does not have a walker. She has a tub/shower but that her caregiver assists her with stepping over. Drive Self: No OT Current Status Subjective No pain reported. Appearance Pt. up in chair. Agrees to work with OT. Mental Status/Objective Patient Orientation: Person, Place, Time, Situation Attachments: IV, Oxygen Current Hand Dominance: Right Upper Extremity ROM WFL Upper Extremity Strength 4/5 overall bilateral UE ADL-Treatment Therapy Code Descriptions/Definitions Functional [place] Measure: 0=Not Assessed/NA 4=Minimal Assistance 1=Total Assistance 5=Supervision or Setup 2=Maximal Assistance 6=Modified [place] 3=Moderate Assistance 7=Complete [place] Therapy Quality Codes: 6 Independent with activity with or without an assistive device 5 Patient requires set up or clean up by helper. Patient completes activity by themselves 4 Supervision or touching assist (CGA). [place] provide cues , steadying assist 3 The helper provides less than half the effort to complete the activity 2 The helper provides more than half the effort to complete the activity 1 Dependent. The helper does all the effort to complete an activity 7 Patient refused to complete or attempt activity 9 The patient did not perform the activity before the current illness or injury 88 Not attempted due to Medical conditions or safety concerns Toileting (FIM): 6 (Pt. able to doff/don brief and cleanse [place] area with no difficulty. ) Transfers (B, C, W/C) (FIM): 6 (Pt. able to stand with no balance issues and ambulate into bathroom. OT did provide follow with IV pole, and pt. encouraged to use it for balance if needed. Pt. states that she does not need it.) Toilet/Commode Transfer (FIM): 6 Pt. declines practicing socks at this time. States that she could get them off, "but it would take a long time." Pt. verbalizes that she has assistance for this at home. Education OT Patient Education: Modified ADL techniques, Progress toward Goal/Update tx plan, Purpose of tx/functional activities, Reviewed precautions, Rehab process, Transfer techniques Teaching Recipient: Patient Teaching Methods: Demonstration, Discussion Response to Teaching: Verbalize Understanding, Return Demonstration OT Short Term Goals Short Term Goals Transfers (B,C,W/C) (FIM): 6 1=Demonstrate adherence to instructed precautions during ADL tasks. 2=Patient will verbalize/demonstrate understanding of assistive devices/modifications for ADL. 3=Patient will improve strength/tolerance for activity to enable patient to pe rform ADL's. OT Cookie Mixer Helper Goals Cookie Mixer Helper Goals Time Frame: May 14, 2019 1=Demonstrate adherence to instructed precautions during ADL tasks. 2=Patient will verbalize/demonstrate understanding of assistive devic es/modifications for ADL. 3=Patient will improve strength/tolerance for activity to enable patient to perform ADL's. Pt. will be seen one more time to establish home exercise program with her. Pt. verbalizes being at previous level with exception of breathing issues at this time. OT Education/Plan Problem List/Assessment Assessment: Decreased Activ Tolerance Discharge Recommendations Plan/Recommendations: Follow-up Planned Therapy D/C Recommendations: Home w/ Family Support Comment Pt. would benefit from a walker if she feels that she needs it for low endurance. Target Placement Home with french translator caregiver support, (which is already established.) Treatment Plan/Plan of Care Treatment,Training & Education: Yes Patient would benefit from OT for education, treatment and training to promote independence in ADL's, mobility, safety and/or upper extremity function for ADL's. Plan of Care: UE Funct Exercise/Act Treatment Duration: May 14, 2019 Frequency: 1 time per week Estimated Hrs Per Day: .5 hour per day Agreement: Yes Rehab Potential: Good Time/GCodes Start Time: 13:05 Stop Time: 13:21 Total Time Billed (hr/min): 16 Billed Treatment Time 1, ROSE ABBOTT OT May 13, 2019 14:30
--- NOTE | 2019-05-13 15:17 | NUR ---
IRF Evaluation Order received to evaluate patient for the ARU. According to PT/OT Evaluations, patient is ambulating (275ft, FWW), transferring and toileting with modified independence; therefore, due to patient functioning at/near baseline, she does not require intensive therapies. CM/SS and Dr. Sepulveda notified. Thank you for this referral.
--- NOTE | 2019-05-13 15:46 | Cardiology Progress Note ---
Cardiology SOAP Progress Note Subjective: No cardiac complaints. Objective: I&O/Vital Signs 05/13/19 05/13/19 05/13/19 05/13/19 04:35 06:26 07:00 07:59 Temp 97.5 96.9 Pulse 56 61 67 Resp 16 20 B/P (MAP) 127/83 (98) 139/79 (99) Pulse Ox 98 96 97 O2 Delivery Room Air Nasal Cannula High Flow N/C O2 Flow Rate 3.00 2.50 05/13/19 05/13/19 05/13/19 05/13/19 08:00 10:30 12:19 15:01 Temp 97.6 Pulse 67 Resp 20 B/P (MAP) 166/79 (108) Pulse Ox 97 95 96 O2 Delivery Room Air Nasal Cannula High Flow N/C Nasal Cannula O2 Flow Rate 3.00 2.50 3.00 05/13/19 00:00 Intake Total 510 ml Balance 510 ml Weight (Pounds): 193 Weight (Ounces): 6.1 Weight (Calculated Kilograms): 87.078036 Constitutional: appears stated age, AAO x 3; No apparent distress; well- developed, well-nourished Respiratory: chest is bilaterally symmetric, lungs clear to auscultation Cardiovascular: irregularly irregular; No extra beats, No parasternal heave is noted, No JVD, No edema, No bradycardia, No tachycardia, No point of maximal impulse, No cardiac thrills are palpable; S1 and S2; No gallop/S3, No gallop/S4, No diastolic murmur, No systolic murmur, No friction rub, No click, No other Gastrointestional: No tender, No soft, No round, No distended, No pulsatile mass, No organomegaly, No guarding, No rebound, No tenderness, No hernia, No mass, No audible bowel sounds, No abnormal bowel sounds, No abdominal bruits, No spleenomegaly, No other Extremities: No normal range of motion, No non-tender, No normal inspection, No pedal edema, No calf tenderness, No normal capillary refill, No pelvis stable, No calf tenderness, No inflammation, No pedal edema, No slow capillary refill, No swelling, No other, No abrasion, No clubbing, No cyanosis, No ecchymosis, No laceration, No no lower extremity edema bilateral, No significant edema, No tenderness, No wound Neurologic/Psychiatric: no motor/sensory deficits, alert, normal mood/affect, oriented x 3, power is 5/5 both on sides Skin: No rash, No ulcerations Results/Procedures: Labs Laboratory Tests 05/13/19 04:55: White Blood Count 8.9, Red Blood Count 4.98, Hemoglobin 14.3, Hematocrit 43, Mean Corpuscular Volume 87, Mean Corpuscular Hemoglobin 29, Mean Corpuscular Hemoglobin Concent 33, Red Cell Distribution Width 14.0, Platelet Count 241, Mean Platelet Volume 10.9H, Neutrophils (%) (Auto) 87H, Lymphocytes (%) (Auto) 12, Monocytes (%) (Auto) 1, Eosinophils (%) (Auto) 0, Basophils (%) (Auto) 0, Neutrophils # (Auto) 7.8, Lymphocytes # (Auto) 1.1, Monocytes # (Auto) 0.1, Eosinophils # (Auto) 0.0, Basophils # (Auto) 0.0, Sodium Level 138, Potassium Level 3.5L, Chloride Level 102, Carbon Dioxide Level 23, Anion Gap 13, Blood Urea Nitrogen 29H, Creatinine 1.21, Estimat Glomerular Filtration Rate 45, BUN/Creatinine Ratio 24, Glucose Level 200H, Calcium Level 9.8, Corrected Calcium 9.8, Total Bilirubin 0.4, Aspartate Amino Transf (AST/SGOT) 12, Alanine Aminotransferase (ALT/SGPT) 14, Alkaline Phosphatase 48, Total Protein 6.5, Albumin 4.0 05/13/19 11:06: Glucometer 261H Microbiology 05/12/19 Blood Culture - Preliminary, Resulted No growth A/P: Assessment/Dx: Shortness of breath, likely multi-factorial, acute exacerbation of COPD, bronchial asthma Acute on chronic exacerbation of severe COPD - managed by Dr. Thomas Bronchial asthma - managed by Dr. Thomas Acute on chronic diastolic CHF - tx with diuretics Obesity-hypoventilation syndrome with nocturnal hypoxia Chronic persistent atrial fibrillation - bradycardia, 6 beat run of tachycardia OAC with Eliquis Echocardiogram of 01-23-[address] Carolina showed LVH. LVEF 70-75%. Grade 3 diastolic dysfunction. LA and RA dilated. Mild MR. Mild to mod TR. PASP 40- 45mmHg. Small pericardial effusion, which is chronic, seen on echo of 07-10-17 and February 2017. CAD. 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 The prox/ostial left main was stented with a 4.0 x 12 mm Synergy stent History of PVCs previously maintained on Coreg which was discontinued d/t episodes of bradycardia Hypertension - not well controlled Electrolyte abnormalities - replace Plan: Agree with diuretics for acute on chronic congestive diastolic heart failure. Continue dual antiplatelet therapy. Continue Eliquis as for atrial fibrillation. Atrial fibrillation with bradycardia, asymptomatic she may be a candidate for permanent pacemaker. The patient is not on any rate controlling agents. Echocardiogram. Thank you for your consultation. Please call me if you have any questions. Brooke Llanes MD, FACP, FACC, FSCAI, FHRS, CCDS Interventional Cardiology Cardiac Electrophysiology Vascular Medicine and Endovascular Interventions Melinda LLANES MD May 13, 2019 15:46
--- NOTE | 2019-05-13 17:41 | NUR ---
RT NOTIFIED AGAIN OF NEW ADVAIR ORDER.
[2019-05-13] MEDS: RT-ADVAIR HFA 115/21 MCG PER PUFF IH SCH (18:55)
[2019-05-13] MEDS ORDERED: ONDANSETRON 4 MG (ZOFRAN) ORAL DISSOLVE TAB PO PRN (19:30)
[2019-05-13] MEDS ORDERED: MONTELUKAST 10 MG (SINGULAIR) TAB PO PRN (19:30)
[2019-05-13] MEDS ORDERED: OMEPRAZOLE 20 MG (PriLOSEC) CAP NON-FORMULARY PO PRN (19:30)
[2019-05-13] MEDS ORDERED: PANTOPRAZOLE 20 MG TABLET (PROTONIX) PO PRN (19:45)
[2019-05-13] MEDS: MONTELUKAST 10 MG (SINGULAIR) TAB PO SCH (20:31)
[2019-05-13] MEDS: APIXABAN 5 MG (ELIQUIS) TABLET PO SCH (20:31)
[2019-05-13] MEDS: ATORVASTATIN 40 MG (LIPITOR) TABLET PO SCH (20:31)
[2019-05-13] MEDS ORDERED: NON-FORMULARY MEDICATION 1 EA EA (Fluticasone/Salmeterol (Advair 250-50 Diskus) 1 PUFF) INH SCH (21:00)
--- NOTE | 2019-05-13 23:37 | NUR ---
JOSUÉ Alfonso notified Dr. Llanes that patient had an 8 beat psvt during nebulizer treatment. VSS. Will continue to monitor.
[2019-05-14] MEDS: RT-ALBUTEROL/IPRATROPIUM 3 ML (DUONEB) VIAL IH SCH ×5 (02:35→22:19)
[2019-05-14] MEDS: methylPREDNISolone 40 MG/ML (Solu-MEDROL) VIAL IV SCH ×4 (02:41→20:26)
[2019-05-14 03:28] VITALS: BP 172/79
[2019-05-14 05:32] LABS: BASOPHILS % (AUTO) 0 % (0-10); EOSINOPHILS % (AUTO) 0 % (0-10); HEMATOCRIT 44 % (35-52); HEMOGLOBIN 14.3 G/DL (11.5-16.0); LYMPHOCYTES # (AUTO) 1.3 X 10^3 (1.0-4.0); LYMPHOCYTES % (AUTO) 7 % (12-44); MEAN CORPUSCULAR HEMOGLOBIN 29 PG (25-34); MEAN CORPUSCULAR HGB CONC 33 G/DL (32-36); MEAN CORPUSCULAR VOLUME 90 FL (80-99); MEAN PLATELET VOLUME 10.9 FL (7.4-10.4); MONOCYTES # (AUTO) 0.4 X 10^3 (0.0-1.0); MONOCYTES % (AUTO) 2 % (0-12); NEUTROPHILS # (AUTO) 16.8 X 10^3 (1.8-7.8); NEUTROPHILS % (AUTO) 91 % (42-75); PLATELET COUNT 246 10^3/uL (130-400); RED CELL DISTRIBUTION WIDTH 14.1 % (10.0-14.5); WHITE BLOOD COUNT 18.5 10^3/uL (4.3-11.0)
[2019-05-14] MEDS: inSUlin ASPART (NovoLOG) 1 UNIT/0.01 ML (CHARGE PER UNIT) SC SCH ×4 (05:32→21:46)
[2019-05-14] MEDS: CATHETER FLUSH 10 ML SYR IV SCH ×3 (05:32→20:26)
[2019-05-14 05:51] LABS: BAND NEUTROPHILS 1 %; LYMPHOCYTES % (MANUAL) 4 %; MONOCYTES % (MANUAL) 1 %; NEUTROPHILS % (MANUAL) 94 %
[2019-05-14 05:52] LABS: RBC MORPH NORMAL
[2019-05-14 05:56] LABS: ALBUMIN 3.8 GM/DL (3.2-4.5); BILIRUBIN,TOTAL 0.3 MG/DL (0.1-1.0); CALCIUM 10.3 MG/DL (8.5-10.1); CREATININE SERUM 1.19 MG/DL (0.60-1.30); POTASSIUM 4.2 MMOL/L (3.6-5.0); TOTAL PROTEIN 6.2 GM/DL (6.4-8.2)
[2019-05-14] MEDS: ISOSORBIDE MONONITRATE 60 MG (IMDUR) TAB PO SCH (06:14)
[2019-05-14] MEDS: RT-ADVAIR HFA 115/21 MCG PER PUFF IH SCH ×2 (06:30→22:19)
--- NOTE | 2019-05-14 07:19 | Pulmonary Progress Note ---
Subjective Time Seen by a Provider: 07:18 Subjective/Events-last exam Pt still on 3 liter NC. Sepsis Event Evaluation Height, Weight, BMI Height: 5'5.00" Weight: 235lbs. 7.0oz. 106.758583rg; 36.9 BMI Method:Stated Exam Exam Vital Signs Date Time Temp Pulse Resp B/P (MAP) Pulse Ox O2 Delivery O2 Flow Rate FiO2 05/14/19 06:33 96 Nasal Cannula 3.00 05/14/19 06:32 96 Nasal Cannula 3.00 05/14/19 03:28 97.4 65 18 172/79 (110) 98 Nasal Cannula 3.00 05/14/19 02:36 97 Nasal Cannula 3.00 05/14/19 01:00 69 05/14/19 00:00 Room Air 05/13/19 23:30 97.2 05/13/19 23:28 72 18 141/82 (101) 95 Nasal Cannula 2.00 05/13/19 23:06 94 05/13/19 22:39 95 Nasal Cannula 3.00 05/13/19 19:55 96.7 68 18 142/67 (92) 100 Nasal Cannula 2.50 05/13/19 19:00 79 05/13/19 18:57 91 Nasal Cannula 3.00 05/13/19 16:24 96.5 69 18 157/74 (101) 99 High Flow N/C 2.50 05/13/19 15:01 96 Nasal Cannula 3.00 05/13/19 13:00 72 05/13/19 12:19 97.6 67 20 166/79 (108) 95 High Flow N/C 2.50 05/13/19 10:30 97 Nasal Cannula 3.00 05/13/19 08:00 Room Air 05/13/19 07:59 96.9 67 20 139/79 (99) 97 High Flow N/C 2.50 I & O 05/14/19 07:00 Intake Total 800 ml Balance 800 ml Height & Weight Height: 5'5.00" Weight: 235lbs. 7.0oz. 106.210519nw; 36.9 BMI Method:Stated General Appearance: No Apparent Distress, WD/WN, Anxious, Chronically ill, Obese HEENT: PERRL/EOMI, Normal ENT Inspection, Pharynx Normal, Moist Mucous Membranes Neck: Full Range of Motion, Normal Inspection, Non Tender Respiratory: Chest Non Tender, No Accessory Muscle Use, No Respiratory Distress, Accessory Muscle Use, Crackles, Decreased Breath Sounds, Wheezing Cardiovascular: Regular Rate, Rhythm, No Edema, No Gallop, No JVD, No Murmur, Normal Peripheral Pulses Capillary Refill: Less Than 3 Seconds Extremity: Normal Capillary Refill, Normal Inspection, Normal Range of Motion, Non Tender, No Calf Tenderness, No Pedal Edema Neurologic/Psychiatric: Alert, Oriented x3, No Motor/Sensory Deficits, Normal Mood/Affect Skin: Normal Color, Warm/Dry Lymphatic: No Adenopathy Results Lab Laboratory Tests 05/12/19 13:23 05/13/19 04:55 05/14/19 04:43 Assessment/Plan Assessment/Plan COPDAE -Solumedrol - change to 40 IV Q 6 -SVNS Q 4 -ABG C02 35 -add advair -Repeat CXR Pulmonary edema probably secondary to CHF -Cardiology following Morbid obesity DRISS FUNES DO May 14, 2019 07:19
[2019-05-14 07:55] VITALS: BP 121/66
[2019-05-14] MEDS ORDERED: NON-FORMULARY MEDICATION 1 EA EA (Amlodipine Besylate 10 MG) PO SCH (09:00)
[2019-05-14] MEDS ORDERED: NON-FORMULARY MEDICATION 1 EA EA (Cetirizine HCl 10 MG) PO SCH (09:00)
[2019-05-14] MEDS ORDERED: NON-FORMULARY MEDICATION 1 EA EA (Fluticasone/Vilanterol (Breo Ellipta 200-25 Mcg INH) 1 P PO SCH (09:00)
[2019-05-14] MEDS: CLOPIDOGREL 75 MG (PLAVIX) TABLET PO SCH (09:05)
[2019-05-14] MEDS: amLODIPine 10 MG (NORVASC) TAB PO SCH (09:05)
[2019-05-14] MEDS: LORATADINE (CLARITIN) 10 MG TAB PO SCH (09:05)
[2019-05-14] MEDS: APIXABAN 5 MG (ELIQUIS) TABLET PO SCH ×2 (09:05→20:26)
[2019-05-14] MEDS: SENNA W/DOCUSATE (SENOKOT S) TABLET PO SCH ×2 (09:05→20:26)
[2019-05-14] MEDS: FLUTICASONE NASAL SPRAY (FLONASE) 16 GM BTL NS SCH (09:06)
--- NOTE | 2019-05-14 09:19 | Diagnostic Imaging Report ---
PATIENT HISTORY: Shortness of breath.. TECHNIQUE: Single frontal view of the chest. COMPARISON: Chest radiograph on 05/12/2019. FINDINGS: The lung volumes are normal. No focal consolidation is seen. No large pleural effusion or pneumothorax is seen. Stable cardiomegaly with central pulmonary vascular congestion. There is calcified aortic atherosclerotic plaque. No acute osseous abnormality is seen. IMPRESSION: Unchanged cardiomegaly with central pulmonary vascular congestion. No overt pulmonary edema. Dictated by: Dictated on workstation # [id number]
--- NOTE | 2019-05-14 10:30 | Progress Note - Hospitalist ---
Subjective HPI/CC On Admission Date Seen by Provider: May 14, 2019 Time Seen by Provider: 09:30 Chief complaint: Shortness of breath HPI: This is a 63yoWF with severe COPD and HIRO who presented to the [place] [facility] with SOB and found to be hypoxic and in need of IV steroids for severity of exacerbation of COPD. She had been placed on Levaquin and Prednisone dose by Dr. Love her PCP on Sunday but she worsened to the point that she failed outpatient treatment so she will need inpatient close monitoring with cardiology and pulmonology. Her BNP was elevated and cardiology will be managing that as necessary. PT and OT will be ordered. Potassium of 3.5 is being supplemented, Lasix of 40 Mg IV given and Solumendrol dose was titrated down from 90 Mg IV Q6HRs to [address] Thomas. Sliding scale insulin regimen will be initiated with AC and HS checks abiding by the A level of Novolog and home medications will be restarted after reconcile by pharmacy. Echocardiogram is ordered. 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 Knapp. She reports that she has had three separate exacerbations since I last saw her in December when I admitted her at that time so she really meets criteria for rehab and close monitoring by cardiology and p ulmonology to decrease the chance of exacerbations of COPD. Subjective/Events-last exam Slow progress Chronically uses oxygen at night PT and OT ordered and will be maintained No pain is reported Wheezing is still an issues upper respiratory french Bowels are moving Eating and drinking Obesity hypoventilation syndrome may actually require trach, will talk to Dr. Thomas Very slow progress Review of Systems Pulmonary: Dyspnea, Cough Objective Exam Vital Signs Vital Signs Date Time Temp Pulse Resp B/P (MAP) Pulse Ox O2 Delivery O2 Flow Rate FiO2 05/14/19 19:00 61 05/14/19 16:12 96.9 20 125/67 (86) 98 Nasal Cannula 3.00 05/13/19 02:11 96 Capillary Refill : Less Than 3 Seconds General Appearance: No Apparent Distress, WD/WN, Anxious, Chronically ill, Obese HEENT: PERRL/EOMI, Normal ENT Inspection, Pharynx Normal, Moist Mucous Membranes Neck: Full Range of Motion, Normal Inspection, Non Tender Respiratory: Chest Non Tender, No Accessory Muscle Use, No Respiratory Distress, Accessory Muscle Use, Crackles, Decreased Breath Sounds, Wheezing Cardiovascular: Regular Rate, Rhythm, No Edema, No Gallop, No JVD, No Murmur, Normal Peripheral Pulses Gastrointestinal: Normal Bowel Sounds, No Organomegaly, No Pulsatile Mass, Non Tender, Soft Back: Normal Inspection, No CVA Tenderness, No Vertebral Tenderness Extremity: Normal Capillary Refill, Normal Inspection, Normal Range of Motion, Non Tender, No Calf Tenderness, No Pedal Edema Neurologic/Psychiatric: Alert, Oriented x3, No Motor/Sensory Deficits, Normal Mood/Affect Skin: Normal Color, Warm/Dry Lymphatic: No Adenopathy Results/Procedures Lab Laboratory Tests 05/14/19 04:43 Patient resulted labs reviewed. Assessment/Plan Assessment and Plan Assess & Plan/Chief Complaint Assessment: Acute exacerbation of COPD failed outpatient antibiotic and steroid regimen Acute exacerbation of diastolic heart failure requiring diuretics Obesity hypoventilation syndrome Obstructive sleep apnea sees Dr. Thomas regularly Atrial fibrillation Hypertension Obesity Bradycardia episodes Chronic oral anticoagulation CAD previous stents placed Plan: IV steroids Cardiology and pulmonology consultations are appreciated Maximum nebulized treatments and oxygen supplementation May need BiPAP Monitor labs Home meds Maintain oral anticoagulation Diagnosis/Problems Diagnosis/Problems (1) COPD exacerbation Status: Acute (2) Atrial fibrillation Status: Chronic Qualifiers: Atrial fibrillation type: chronic Qualified Codes: I48.2 - Chronic atrial fibrillation (3) Diastolic CHF Status: Acute Qualifiers: Heart failure chronicity: acute Qualified Codes: I50.31 - Acute diastolic (congestive) heart failure (4) Essential (primary) hypertension Status: Chronic (5) CAD (coronary artery disease) Status: Chronic Qualifiers: Coronary Disease-Associated Artery/Lesion type: [place] artery [place] vs. transplanted heart: [place] heart Associated angina: without angina Qualified Codes: I25.10 - Atherosclerotic heart disease of [place] coronary artery without angina pectoris (6) Debility Status: Chronic (7) Obesity hypoventilation syndrome Status: Chronic (8) Pulmonary HTN Status: Chronic (9) Respiratory failure Status: Acute Qualifiers: Chronicity: acute Respiratory failure complication: hypoxia Qualified Codes: J96.01 - Acute respiratory failure with hypoxia (10) Debility Status: Chronic (11) Morbid obesity Status: Chronic (12) On continuous oral anticoagulation Status: Chronic (13) Bradycardia Status: Acute Clinical Quality Measures DVT/VTE Risk/Contraindication: Risk Factor Score Per Nursin RFS Level Per Nursing on Admit: 4+=Very High MIGEL MCGUIRE DO May 14, 2019 10:30
--- NOTE | 2019-05-14 11:09 | Physical Therapy Daily Note ---
PT Daily Note-Current Subjective Patient in bed pre tx, refuses to ambulate or get out of bed, agrees reluctantly to exercises in bed, no complaints of pain. Appearance Patient in bed post tx with nurse call, phone, tray, all needs met. Mental Status Patient Orientation: Person, Place, Situation Transfers Therapy Code Descriptions/Definitions Functional [place] Measure: 0=Not Assessed/NA 4=Minimal Assistance 1=Total Assistance 5=Supervision or Setup 2=Maximal Assistance 6=Modified [place] 3=Moderate Assistance 7=Complete [place] Therapy Quality Codes: 6 Independent with activity with or without an assistive device 5 Patient requires set up or clean up by helper. Patient completes activity by themselves 4 Supervision or touching assist (CGA). [place] provide cues , steadying assist 3 The helper provides less than half the effort to complete the activity 2 The helper provides more than half the effort to complete the activity 1 Dependent. The helper does all the effort to complete an activity 7 Patient refused to complete or attempt activity 9 The patient did not perform the activity before the current illness or injury 88 Not attempted due to Medical conditions or safety concerns Exercises Supine Ex: Ankle pumps, Quad Set, Glut sets, Heel Slides, Short Arc Quads, Straight leg raise, Hip abd/add Supine Reps: 15 Treatments BLE exercise Assessment Current Status: Poor Progress poor motivation PT Short Term Goals Short Term Goals Time Frame: May 14, 2019 Transfers (B,C,W/C) (FIM): 6 Gait (FIM): 6 Distance (FIM): 3=150 ft Gait Distance Comment: 275' Gait Level of Assist: 6 Gait Assistive Device: FWW PT Plan Problem List Problem List: Activity Tolerance, Functional Strength, Safety, Balance, Gait, Transfer, Bed Mobility, ROM Treatment/Plan Treatment Plan: Continue Plan of Care Treatment Plan: Education, Functional Activity [place], Gait, Safety, Therapeutic Exercise, Transfers Treatment Duration: May 14, 2019 Frequency: 2 times per week Estimated Hrs Per Day: .25 hour per day Patient and/or Family Agrees t: Yes Safety Risks/Education Patient Education: Correct Positioning, Safety Issues Teaching Recipient: Patient Teaching Methods: Demonstration, Discussion Response to Teaching: Reinforcement Needed Time/GCodes Time In: 1058 Time Out: 1108 Total Billed Treatment Time: 10 Total Billed Treatment 1 visit EX 10' AMNA MIX PT May 14, 2019 11:09
[2019-05-14 11:57] VITALS: BP 139/76
--- NOTE | 2019-05-14 13:45 | Occupational Ther Daily Note ---
OT Current Status-Daily Note Subjective Pt. does not report pain. Appearance Pt. in bed but will not verbalize very much with OT. States that she does not feel well but does not articulate why. Mental Status/Objective Patient Orientation: Person, Place Therapy Code Descriptions/Definitions Functional [place] Measure: 0=Not Assessed/NA 4=Minimal Assistance 1=Total Assistance 5=Supervision or Setup 2=Maximal Assistance 6=Modified [place] 3=Moderate Assistance 7=Complete [place] Attachments: Oxygen Other Treatment Pt. agrees to bilateral UE exercises. Pt. issued therapy sponge, theraband, and exercise handout. Pt. educated on UE exercises and completed them with independence. Pt. completed 4 bilateral UE exercises x 15 reps with red theraband, and 15 bilateral hand squeezes with pink therapy sponge. All needs met in room and pt. verbalizes understanding of UE exercises. Goals met at this time as goal was to be instructed in HEP. Education OT Patient Education: Correct positioning, Exercise program, Home exercise program Teaching Recipient: Patient Teaching Methods: Demonstration, Discussion Response to Teaching: Verbalize Understanding, Return Demonstration OT Short Term Goals Short Term Goals Transfers (B,C,W/C) (FIM): 6 1=Demonstrate adherence to instructed precautions during ADL tasks. 2=Patient will verbalize/demonstrate understanding of assistive devices/modifications for ADL. 3=Patient will improve strength/tolerance for activity to enable patient to perform ADL's. OT Grapple Operator Goals Usp Goals Time Frame: May 14, 2019 1=Demonstrate adherence to instructed precautions during ADL tasks. 2=Patient will verbalize/demonstrate understanding of assistive devices/modifications for ADL. 3=Patient will improve strength/tolerance for activity to enable patient to perform ADL's. OT Education/Plan Problem List/Assessment Assessment: Decreased Activ Tolerance Discharge Recommendations Plan/Recommendations: Discharge/Goals Met Therapy D/C Recommendations: Home w/ Family Support Patient/Family Goals Pt. has been instructed in and demonstrated independence and knowledge of HEP with red theraband and therapy sponge. Completed this for overall endurance and UE strength. Treatment Plan/Plan of Care Treatment,Training & Education: Yes Patient would benefit from OT for education, treatment and training to promote independence in ADL's, mobility, safety and/or upper extremity function for ADL's. Plan of Care: UE Funct Exercise/Act Treatment Duration: May 14, 2019 Frequency: 1 time per week Estimated Hrs Per Day: .25 hour per day Agreement: Yes Rehab Potential: Good Time/GCodes Start Time: 10:35 Stop Time: 10:50 Total Time Billed (hr/min): 15 Billed Treatment Time 1, Ex ROSE DE ANDA OT May 14, 2019 13:45
[2019-05-14 16:12] VITALS: BP 125/67
--- NOTE | 2019-05-14 16:16 | NUR ---
Pastoral care visit.
--- NOTE | 2019-05-14 18:35 | Cardiology Progress Note ---
Cardiology SOAP Progress Note Subjective: no cardiac complaints. Objective: I&O/Vital Signs 05/15/19 05/15/19 05/15/19 05/15/19 07:00 07:36 07:45 07:46 Temp 97.8 Pulse 76 98 Resp 18 B/P (MAP) 160/80 (106) Pulse Ox 98 95 O2 Delivery High Flow N/C Nasal Cannula Nasal Cannula O2 Flow Rate 3.00 3.00 3.00 05/15/19 05/15/19 05/15/19 05/15/19 08:00 11:07 11:42 12:42 Temp 98.5 Pulse 65 89 Resp 18 B/P (MAP) 155/78 (103) Pulse Ox 98 95 100 O2 Delivery Nasal Cannula Nasal Cannula High Flow N/C O2 Flow Rate 3.00 3.00 3.00 05/15/19 05/15/19 15:16 15:42 Temp 96.9 Pulse 76 Resp 20 B/P (MAP) 149/84 (105) Pulse Ox 96 97 O2 Delivery Nasal Cannula High Flow N/C O2 Flow Rate 3.00 3.00 05/15/19 00:00 Intake Total 1280 ml Balance 1280 ml Weight (Pounds): 235 Weight (Ounces): 7.0 Weight (Calculated Kilograms): 106.390594 Constitutional: appears stated age, AAO x 3; No apparent distress; well- developed, well-nourished Respiratory: chest is bilaterally symmetric, lungs clear to auscultation Cardiovascular: irregularly irregular; No extra beats, No parasternal heave is noted, No JVD, No edema, No bradycardia, No tachycardia, No point of maximal impulse, No cardiac thrills are palpable; S1 and S2; No gallop/S3, No gallop/S4, No diastolic murmur, No systolic murmur, No friction rub, No click, No other Gastrointestional: No tender, No soft, No round, No distended, No pulsatile mass, No organomegaly, No guarding, No rebound, No tenderness, No hernia, No m ass, No audible bowel sounds, No abnormal bowel sounds, No abdominal bruits, No spleenomegaly, No other Extremities: No normal range of motion, No non-tender, No normal inspection, No pedal edema, No calf tenderness, No normal capillary refill, No pelvis stable, No calf tenderness, No inflammation, No pedal edema, No slow capillary refill, No swelling, No other, No abrasion, No clubbing, No cyanosis, No ecchymosis, No laceration, No no lower extremity edema bilateral, No significant edema, No tenderness, No wound Neurologic/Psychiatric: no motor/sensory deficits, alert, normal mood/affect, oriented x 3, power is 5/5 both on sides Skin: No rash, No ulcerations Results/Procedures: Labs Laboratory Tests 05/14/19 20:45: Glucometer 340H 05/15/19 05:13: Glucometer 166H 05/15/19 05:55: White Blood Count 15.5H, Red Blood Count 4.90, Hemoglobin 14.0, Hematocrit 44, Mean Corpuscular Volume 90, Mean Corpuscular Hemoglobin 29, Mean Corpuscular Hemoglobin Concent 32, Red Cell Distribution Width 14.4, Platelet Count 257, Mean Platelet Volume 10.7H, Neutrophils (%) (Auto) 91H, Lymphocytes (%) (Auto) 7L, Monocytes (%) (Auto) 2, Eosinophils (%) (Auto) 0, Basophils (%) (Auto) 0, Neutrophils # (Auto) 14.1H, Lymphocytes # (Auto) 1.1, Monocytes # (Auto) 0.3, Eosinophils # (Auto) 0.0, Basophils # (Auto) 0.0, Neutrophils % (Manual) , Sodium Level 141, Potassium Level 4.4, Chloride Level 107, Carbon Dioxide Level 26, Anion Gap 8, Blood Urea Nitrogen 44H, Creatinine 0.99, Estimat Glomerular Filtration Rate 56, BUN/Creatinine Ratio 44, Glucose Level 173H, Calcium Level 10.3H, Corrected Calcium 10.5H, Total Bilirubin 0.2, Aspartate Amino Transf (AST/SGOT) 7, Alanine Aminotransferase (ALT/SGPT) 12, Alkaline Phosphatase 50, Total Protein 6.2L, Albumin 3.8 05/15/19 11:36: Glucometer 297H 05/15/19 15:42: Glucometer 309H Microbiology 05/12/19 Blood Culture - Preliminary, Resulted No growth A/P: Assessment/Dx: Shortness of breath, likely multi-factorial, acute exacerbation of COPD, bronchial asthma Acute on chronic exacerbation of severe COPD - managed by Dr. Thomas Bronchial asthma - managed by Dr. Thomas Acute on chronic diastolic CHF - tx with diuretics Obesity-hypoventilation syndrome with nocturnal hypoxia Chronic persistent atrial fibrillation - bradycardia, 6 beat run of tachycardia OAC with Eliquis Echocardiogram of 01-23-[address] Carolina showed LVH. LVEF 70-75%. Grade 3 diastolic dysfunction. LA and RA dilated. Mild MR. Mild to mod TR. PASP 40- 45mmHg. Small pericardial effusion, which is chronic, seen on echo of 07-10-17 and February 2017. CAD. Her primary grief counselor is Dr Knapp at [facility] - Cardiac cath of 07-27-16 at [facility] - 70% left main stenosis prox, 50% prox LAD occlusion. The prox/ostial left main was stented with a 4.0 x 12 mm Synergy stent History of PVCs previously maintained on Coreg which was discontinued d/t episodes of bradycardia Hypertension - not well controlled Electrolyte abnormalities - replace Plan: Agree with diuretics for acute on chronic congestive diastolic heart failure. Continue dual antiplatelet therapy. Continue Eliquis as for atrial fibrillation. Atrial fibrillation with bradycardia, asymptomatic she may be a candidate for permanent pacemaker. The patient is not on any rate controlling agents. Echocardiogram. Thank you for your consultation. Please call me if you have any questions. Brooke Llanes MD, FACP, FACC, FSCAI, FHRS, CCDS Interventional Cardiology Cardiac Electrophysiology Vascular Medicine and Endovascular Interventions Melinda LLANES MD May 14, 2019 18:35
[2019-05-14 20:00] VITALS: BP 142/82
[2019-05-14] MEDS: MONTELUKAST 10 MG (SINGULAIR) TAB PO SCH (20:26)
[2019-05-14] MEDS: ATORVASTATIN 40 MG (LIPITOR) TABLET PO SCH (20:26)
[2019-05-14 23:56] VITALS: BP 133/60
[2019-05-15] MEDS: methylPREDNISolone 40 MG/ML (Solu-MEDROL) VIAL IV SCH ×2 (01:25→08:15)
[2019-05-15] MEDS: RT-ALBUTEROL/IPRATROPIUM 3 ML (DUONEB) VIAL IH SCH ×6 (02:30→22:19)
[2019-05-15 03:40] VITALS: BP 140/82
[2019-05-15] MEDS: inSUlin ASPART (NovoLOG) 1 UNIT/0.01 ML (CHARGE PER UNIT) SC SCH ×4 (06:01→21:48)
[2019-05-15] MEDS: ISOSORBIDE MONONITRATE 60 MG (IMDUR) TAB PO SCH (06:12)
[2019-05-15] MEDS: CATHETER FLUSH 10 ML SYR IV SCH ×3 (06:12→21:49)
[2019-05-15 06:19] LABS: BASOPHILS % (AUTO) 0 % (0-10); EOSINOPHILS % (AUTO) 0 % (0-10); HEMATOCRIT 44 % (35-52); LYMPHOCYTES # (AUTO) 1.1 X 10^3 (1.0-4.0); LYMPHOCYTES % (AUTO) 7 % (12-44); MEAN CORPUSCULAR HEMOGLOBIN 29 PG (25-34); MEAN CORPUSCULAR HGB CONC 32 G/DL (32-36); MEAN CORPUSCULAR VOLUME 90 FL (80-99); MEAN PLATELET VOLUME 10.7 FL (7.4-10.4); MONOCYTES # (AUTO) 0.3 X 10^3 (0.0-1.0); MONOCYTES % (AUTO) 2 % (0-12); NEUTROPHILS # (AUTO) 14.1 X 10^3 (1.8-7.8); NEUTROPHILS % (AUTO) 91 % (42-75); PLATELET COUNT 257 10^3/uL (130-400); RED CELL DISTRIBUTION WIDTH 14.4 % (10.0-14.5); WHITE BLOOD COUNT 15.5 10^3/uL (4.3-11.0)
[2019-05-15 06:51] LABS: ALBUMIN 3.8 GM/DL (3.2-4.5); BILIRUBIN,TOTAL 0.2 MG/DL (0.1-1.0); CALCIUM 10.3 MG/DL (8.5-10.1); CREATININE SERUM 0.99 MG/DL (0.60-1.30); POTASSIUM 4.4 MMOL/L (3.6-5.0); TOTAL PROTEIN 6.2 GM/DL (6.4-8.2)
[2019-05-15 07:36] VITALS: BP 160/80
[2019-05-15] MEDS: RT-ADVAIR HFA 115/21 MCG PER PUFF IH SCH ×2 (07:43→19:04)
--- NOTE | 2019-05-15 07:44 | Pulmonary Progress Note ---
Subjective Time Seen by a Provider: 07:44 Subjective/Events-last exam Pt complains of SOB and wheezing. Sepsis Event Evaluation Height, Weight, BMI Height: 5'5.00" Weight: 235lbs. 6.5oz. 106.422586on; 36.9 BMI Method:Stated Exam Exam Vital Signs Date Time Temp Pulse Resp B/P (MAP) Pulse Ox O2 Delivery O2 Flow Rate FiO2 05/15/19 07:36 97.8 98 18 160/80 (106) 98 High Flow N/C 3.00 05/15/19 07:00 76 05/15/19 03:40 98.2 68 18 140/82 (101) 99 Nasal Cannula 3.00 05/15/19 02:30 95 Nasal Cannula 3.00 05/15/19 01:00 61 05/14/19 23:56 96.5 60 18 133/60 (84) 99 Nasal Cannula 3.00 05/14/19 22:19 98 Nasal Cannula 3.00 05/14/19 22:19 98 Nasal Cannula 3.00 05/14/19 20:00 96.9 75 18 142/82 (102) 98 Nasal Cannula 3.00 05/14/19 20:00 98 Nasal Cannula 3.00 05/14/19 19:00 61 05/14/19 16:12 96.9 73 20 125/67 (86) 98 Nasal Cannula 3.00 05/14/19 14:24 97 Nasal Cannula 3.00 05/14/19 12:50 76 05/14/19 11:57 98.0 83 20 139/76 (97) 97 Nasal Cannula 3.00 05/14/19 10:50 97 Nasal Cannula 3.00 05/14/19 08:00 Room Air 05/14/19 07:55 97.7 70 18 121/66 (84) 100 Nasal Cannula 3.00 I & O 05/15/19 07:00 Intake Total 1380 ml Balance 1380 ml Height & Weight Height: 5'5.00" Weight: 235lbs. 6.5oz. 106.125150ei; 36.9 BMI Method:Stated General Appearance: No Apparent Distress, WD/WN, Anxious, Chronically ill, Obese HEENT: PERRL/EOMI, Normal ENT Inspection, Pharynx Normal, Moist Mucous Membranes Neck: Full Range of Motion, Normal Inspection, Non Tender Respiratory: Chest Non Tender, No Accessory Muscle Use, No Respiratory Distress, Accessory Muscle Use, Crackles, Decreased Breath Sounds, Wheezing Cardiovascular: Regular Rate, Rhythm, No Edema, No Gallop, No JVD, No Murmur, Normal Peripheral Pulses Capillary Refill: Less Than 3 Seconds Extremity: Normal Capillary Refill, Normal Inspection, Normal Range of Motion, Non Tender, No Calf Tenderness, No Pedal Edema Neurologic/Psychiatric: Alert, Oriented x3, No Motor/Sensory Deficits, Normal Mood/Affect Skin: Normal Color, Warm/Dry Lymphatic: No Adenopathy Results Lab Laboratory Tests 05/14/19 04:43 05/15/19 05:55 Assessment/Plan Assessment/Plan COPDAE -Solumedrol 40 IV Q 6 -SVNS Q 4 -ABG C02 35 - advair Pulmonary edema probably secondary to CHF -Cardiology following Morbid obesity DRISS FUNES DO May 15, 2019 07:44
[2019-05-15] MEDS: FLUTICASONE NASAL SPRAY (FLONASE) 16 GM BTL NS SCH (08:14)
[2019-05-15] MEDS: CLOPIDOGREL 75 MG (PLAVIX) TABLET PO SCH (08:15)
[2019-05-15] MEDS: APIXABAN 5 MG (ELIQUIS) TABLET PO SCH ×2 (08:15→21:05)
[2019-05-15] MEDS: SENNA W/DOCUSATE (SENOKOT S) TABLET PO SCH ×2 (08:15→21:05)
[2019-05-15] MEDS: amLODIPine 10 MG (NORVASC) TAB PO SCH (08:15)
[2019-05-15] MEDS: LORATADINE (CLARITIN) 10 MG TAB PO SCH (08:15)
[2019-05-15] MEDS ORDERED: predniSONE 20 MG TAB PO SCH (09:00)
--- NOTE | 2019-05-15 09:46 | Physical Therapy Daily Note ---
PT Daily Note-Current Subjective Patient states she is not feeling any better, however, agrees to PT. Mental Status Patient Orientation: Normal For Age Attachments: Oxygen (3L NC) Transfers Therapy Code Descriptions/Definitions Functional [place] Measure: 0=Not Assessed/NA 4=Minimal Assistance 1=Total Assistance 5=Supervision or Setup 2=Maximal Assistance 6=Modified [place] 3=Moderate Assistance 7=Complete [place] Therapy Quality Codes: 6 Independent with activity with or without an assistive device 5 Patient requires set up or clean up by helper. Patient completes activity by themselves 4 Supervision or touching assist (CGA). [place] provide cues , steadying assist 3 The helper provides less than half the effort to complete the activity 2 The helper provides more than half the effort to complete the activity 1 Dependent. The helper does all the effort to complete an activity 7 Patient refused to complete or attempt activity 9 The patient did not perform the activity before the current illness or in jury 88 Not attempted due to Medical conditions or safety concerns Transfers (B, C, W/C) (FIM): 6 Scootin Supine to/from Sit: 6 Sit to/from Stand: 6 Bed to/from Chair: 6 Gait Training Gait (FIM): 6 Distance (FIM): 3=150 ft Distance: 300' Gait Level of Assist: 6 Gait Assistive Device: FWW slow, safe and functional with no deviation Assessment Patient declined exercises and is up in recliner with needs met. PT to dismiss patient from services due to patient is currently at modified independent LOF with all gross motor skills safely and does not require skilled therapy intervention. RN notified and instructed to ambulate with patient PRN. PT Short Term Goals Short Term Goals Time Frame: May 14, 2019 Transfers (B,C,W/C) (FIM): 6 Gait (FIM): 6 Distance (FIM): 3=150 ft Gait Distance Comment: 275' Gait Level of Assist: 6 Gait Assistive Device: FWW PT Plan Treatment/Plan Treatment Plan: Discontinue PT, goals met Treatment Plan: Education, Functional Activity [place], Gait, Safety, Therapeutic Exercise, Transfers Treatment Duration: May 14, 2019 Frequency: 2 times per week Estimated Hrs Per Day: .25 hour per day Patient and/or Family Agrees t: Yes Time/GCodes Time In: 840 Time Out: 849 Total Billed Treatment Time: 9 Total Billed Treatment 1 visit FA 9 min SOLEDAD JAMES PT May 15, 2019 09:46
--- NOTE | 2019-05-15 10:20 | Progress Note - Hospitalist ---
Subjective HPI/CC On Admission Date Seen by Provider: May 15, 2019 Time Seen by Provider: 09:00 Chief complaint: Shortness of breath HPI: This is a 63yoWF with severe COPD and HIRO who presented to the [facility] ER with SOB and found to be hypoxic and in need of IV steroids for severity of exacerbation of COPD. She had been placed on Levaquin and Prednisone dose by Dr. Love her PCP on Sunday but she worsened to the point that she failed outpatient treatment so she will need inpatient close monitoring with cardiology and pulmonology. Her BNP was elevated and cardiology will be managing that as necessary. PT and OT will be ordered. Potassium of 3.5 is being supplemented, Lasix of 40 Mg IV given and Solumendrol dose was titrated down from 90 Mg IV Q6HRs to [address] Thomas. Sliding scale insulin regimen will be initiated with AC and HS checks abiding by the A level of Novolog and home medications will be restarted after reconcile by pharmacy. Echocardiogram is ordered. Her regular accounting support specialist is Dr. Knapp. She reports that she has had three separate exacerbations since I last saw her in December when I admitted her at that time so she really meets criteria for rehab and close monitoring by cardiology and p ulmonology to decrease the chance of exacerbations of COPD. Subjective/Events-last exam Slow progress on the acute on chronic respiratory failure. WBC count is improved. PT and OT are working with her and is able to walk, she did get SOB with labored breathing when she was walking. Having BMs. Family at the bedside. May certainly require a couple more days on IV steroids and close monitoring because of the severity of her respiratory status. Overall prognosis guarded considering the severity of her lung disease. Review of Systems General: Fatigue Pulmonary: Dyspnea, Cough Objective Exam Vital Signs Vital Signs Date Time Temp Pulse Resp B/P (MAP) Pulse Ox O2 Delivery O2 Flow Rate FiO2 05/15/19 20:02 97.2 74 18 159/80 (106) 96 High Flow N/C 3.00 05/13/19 02:11 96 Capillary Refill : Less Than 3 Seconds General Appearance: No Apparent Distress, WD/WN, Anxious, Chronically ill, Obese HEENT: PERRL/EOMI, Normal ENT Inspection, Pharynx Normal, Moist Mucous Membranes Neck: Full Range of Motion, Normal Inspection, Non Tender Respiratory: Chest Non Tender, No Accessory Muscle Use, No Respiratory Distress, Accessory Muscle Use, Crackles, Decreased Breath Sounds, Wheezing Cardiovascular: Regular Rate, Rhythm, No Edema, No Gallop, No JVD, No Murmur, Normal Peripheral Pulses Gastrointestinal: Normal Bowel Sounds, No Organomegaly, No Pulsatile Mass, Non Tender, Soft Back: Normal Inspection, No CVA Tenderness, No Vertebral Tenderness Extremity: Normal Capillary Refill, Normal Inspection, Normal Range of Motion, Non Tender, No Calf Tenderness, No Pedal Edema Neurologic/Psychiatric: Alert, Oriented x3, No Motor/Sensory Deficits, Normal Mood/Affect Skin: Normal Color, Warm/Dry Lymphatic: No Adenopathy Results/Procedures Lab Laboratory Tests 05/15/19 05:55 Patient resulted labs reviewed. Assessment/Plan Assessment and Plan Assess & Plan/Chief Complaint Assessment: Acute exacerbation of COPD failed outpatient antibiotic and steroid regimen Acute exacerbation of diastolic heart failure requiring diuretics Obesity hypoventilation syndrome Obstructive sleep apnea sees Dr. Thomas regularly Atrial fibrillation Hypertension Obesity Bradycardia episodes Chronic oral anticoagulation CAD previous stents placed Plan: IV steroids Cardiology and pulmonology consultations are appreciated Maximum nebulized treatments and oxygen supplementation May need BiPAP Monitor labs Home meds Maintain oral anticoagulation Diagnosis/Problems Diagnosis/Problems (1) COPD exacerbation Status: Acute (2) Atrial fibrillation Status: Chronic Qualifiers: Atrial fibrillation type: chronic Qualified Codes: I48.2 - Chronic atrial fibrillation (3) Diastolic CHF Status: Acute Qualifiers: Heart failure chronicity: acute Qualified Codes: I50.31 - Acute diastolic (congestive) heart failure (4) Essential (primary) hypertension Status: Chronic (5) CAD (coronary artery disease) Status: Chronic Qualifiers: Coronary Disease-Associated Artery/Lesion type: [place] artery [place] vs. transplanted heart: [place] heart Associated angina: without angina Qualified Codes: I25.10 - Atherosclerotic heart disease of [place] coronary artery without angina pectoris (6) Debility Status: Chronic (7) Obesity hypoventilation syndrome Status: Chronic (8) Pulmonary HTN Status: Chronic (9) Respiratory failure Status: Acute Qualifiers: Chronicity: acute Respiratory failure complication: hypoxia Qualified Codes: J96.01 - Acute respiratory failure with hypoxia (10) Debility Status: Chronic (11) Morbid obesity Status: Chronic (12) On continuous oral anticoagulation Status: Chronic (13) Bradycardia Status: Acute Clinical Quality Measures DVT/VTE Risk/Contraindication: Risk Factor Score Per Nursin RFS Level Per Nursing on Admit: 4+=Very High MIGEL MCGUIRE DO May 15, 2019 10:20
[2019-05-15 11:42] VITALS: BP 155/78
[2019-05-15 15:42] VITALS: BP 149/84
--- NOTE | 2019-05-15 16:22 | Cardiology Progress Note ---
Cardiology SOAP Progress Note Subjective: No cardiac complaints. Objective: I&O/Vital Signs 05/15/19 05/15/19 05/15/19 05/15/19 07:00 07:36 07:45 07:46 Temp 97.8 Pulse 76 98 Resp 18 B/P (MAP) 160/80 (106) Pulse Ox 98 95 O2 Delivery High Flow N/C Nasal Cannula Nasal Cannula O2 Flow Rate 3.00 3.00 3.00 05/15/19 05/15/19 05/15/19 05/15/19 08:00 11:07 11:42 12:42 Temp 98.5 Pulse 65 89 Resp 18 B/P (MAP) 155/78 (103) Pulse Ox 98 95 100 O2 Delivery Nasal Cannula Nasal Cannula High Flow N/C O2 Flow Rate 3.00 3.00 3.00 05/15/19 05/15/19 15:16 15:42 Temp 96.9 Pulse 76 Resp 20 B/P (MAP) 149/84 (105) Pulse Ox 96 97 O2 Delivery Nasal Cannula High Flow N/C O2 Flow Rate 3.00 3.00 05/15/19 00:00 Intake Total 1280 ml Balance 1280 ml Weight (Pounds): 235 Weight (Ounces): 6.5 Weight (Calculated Kilograms): 106.166605 Constitutional: appears stated age, AAO x 3; No apparent distress; well- developed, well-nourished Respiratory: chest is bilaterally symmetric, lungs clear to auscultation Cardiovascular: irregularly irregular; No extra beats, No parasternal heave is noted, No JVD, No edema, No bradycardia, No tachycardia, No point of maximal impulse, No cardiac thrills are palpable; S1 and S2; No gallop/S3, No gallop/S4, No diastolic murmur, No systolic murmur, No friction rub, No click, No other Gastrointestional: No tender, No soft, No round, No distended, No pulsatile mass, No organomegaly, No guarding, No rebound, No tenderness, No hernia, No m ass, No audible bowel sounds, No abnormal bowel sounds, No abdominal bruits, No spleenomegaly, No other Extremities: No normal range of motion, No non-tender, No normal inspection, No pedal edema, No calf tenderness, No normal capillary refill, No pelvis stable, No calf tenderness, No inflammation, No pedal edema, No slow capillary refill, No swelling, No other, No abrasion, No clubbing, No cyanosis, No ecchymosis, No laceration, No no lower extremity edema bilateral, No significant edema, No tenderness, No wound Neurologic/Psychiatric: no motor/sensory deficits, alert, normal mood/affect, oriented x 3, power is 5/5 both on sides Skin: No rash, No ulcerations Results/Procedures: Labs Laboratory Tests 05/14/19 20:45: Glucometer 340H 05/15/19 05:13: Glucometer 166H 05/15/19 05:55: White Blood Count 15.5H, Red Blood Count 4.90, Hemoglobin 14.0, Hematocrit 44, Mean Corpuscular Volume 90, Mean Corpuscular Hemoglobin 29, Mean Corpuscular Hemoglobin Concent 32, Red Cell Distribution Width 14.4, Platelet Count 257, Mean Platelet Volume 10.7H, Neutrophils (%) (Auto) 91H, Lymphocytes (%) (Auto) 7L, Monocytes (%) (Auto) 2, Eosinophils (%) (Auto) 0, Basophils (%) (Auto) 0, Neutrophils # (Auto) 14.1H, Lymphocytes # (Auto) 1.1, Monocytes # (Auto) 0.3, Eosinophils # (Auto) 0.0, Basophils # (Auto) 0.0, Neutrophils % (Manual) , Sodium Level 141, Potassium Level 4.4, Chloride Level 107, Carbon Dioxide Level 26, Anion Gap 8, Blood Urea Nitrogen 44H, Creatinine 0.99, Estimat Glomerular Filtration Rate 56, BUN/Creatinine Ratio 44, Glucose Level 173H, Calcium Level 10.3H, Corrected Calcium 10.5H, Total Bilirubin 0.2, Aspartate Amino Transf (AST/SGOT) 7, Alanine Aminotransferase (ALT/SGPT) 12, Alkaline Phosphatase 50, Total Protein 6.2L, Albumin 3.8 05/15/19 11:36: Glucometer 297H 05/15/19 15:42: Glucometer 309H Microbiology 05/12/19 Blood Culture - Preliminary, Resulted No growth A/P: Assessment/Dx: Shortness of breath, likely multi-factorial, acute exacerbation of COPD, bronchial asthma Acute on chronic exacerbation of severe COPD - managed by Dr. Thomas Bronchial asthma - managed by Dr. Thomas Acute on chronic diastolic CHF - tx with diuretics Obesity-hypoventilation syndrome with nocturnal hypoxia Chronic persistent atrial fibrillation - bradycardia, 6 beat run of tachycardia OAC with Eliquis Echocardiogram of 01-23-[address] [place] showed LVH. LVEF 70-75%. Grade 3 diastolic dysfunction. LA and RA dilated. Mild MR. Mild to mod TR. PASP 40- 45mmHg. Small pericardial effusion, which is chronic, seen on echo of 07-10-17 and February 2017. CAD. Her primary registered associate is Dr Knapp at [facility] - Cardiac cath of 07-27-16 at [facility] - 70% left main stenosis prox, 50% prox LAD occlusion. The prox/ostial left main was stented with a 4.0 x 12 mm Synergy stent History of PVCs previously maintained on Coreg which was discontinued d/t episodes of bradycardia Hypertension - not well controlled Electrolyte abnormalities - replace Plan: Agree with diuretics for acute on chronic congestive diastolic heart failure. Continue dual antiplatelet therapy. Continue Eliquis as for atrial fibrillation. Atrial fibrillation with bradycardia, asymptomatic she may be a candidate for permanent pacemaker. The patient is not on any rate controlling agents. Echocardiogram. Thank you for your consultation. Please call me if you have any questions. Brooke Llanes MD, FACP, FACC, FSCAI, FHRS, CCDS Interventional Cardiology Cardiac Electrophysiology Vascular Medicine and Endovascular Interventions Melinda LLANES MD May 15, 2019 16:22
[2019-05-15 20:02] VITALS: BP 159/80
[2019-05-15] MEDS: MONTELUKAST 10 MG (SINGULAIR) TAB PO SCH (21:04)
[2019-05-15] MEDS: ATORVASTATIN 40 MG (LIPITOR) TABLET PO SCH (21:04)
[2019-05-16] VITALS: BP 155/87
[2019-05-16] MEDS: RT-ALBUTEROL/IPRATROPIUM 3 ML (DUONEB) VIAL IH SCH ×3 (02:48→07:11)
[2019-05-16 04:50] VITALS: BP 165/85
[2019-05-16 05:34] LABS: BASOPHILS % (AUTO) 0 % (0-10); EOSINOPHILS # (AUTO) 0.1 10^3/uL (0.0-0.3); EOSINOPHILS % (AUTO) 0 % (0-10); HEMATOCRIT 43 % (35-52); HEMOGLOBIN 13.6 G/DL (11.5-16.0); LYMPHOCYTES # (AUTO) 2.3 X 10^3 (1.0-4.0); LYMPHOCYTES % (AUTO) 17 % (12-44); MEAN CORPUSCULAR HEMOGLOBIN 29 PG (25-34); MEAN CORPUSCULAR HGB CONC 32 G/DL (32-36); MEAN CORPUSCULAR VOLUME 91 FL (80-99); MEAN PLATELET VOLUME 10.6 FL (7.4-10.4); MONOCYTES # (AUTO) 1.1 X 10^3 (0.0-1.0); MONOCYTES % (AUTO) 8 % (0-12); NEUTROPHILS # (AUTO) 10.1 X 10^3 (1.8-7.8); NEUTROPHILS % (AUTO) 74 % (42-75); PLATELET COUNT 220 10^3/uL (130-400); RED CELL DISTRIBUTION WIDTH 14.3 % (10.0-14.5); WHITE BLOOD COUNT 13.6 10^3/uL (4.3-11.0)
[2019-05-16 05:58] LABS: ALANINE AMINOTRANSFERASE 11 U/L (0-55); ALBUMIN 3.5 GM/DL (3.2-4.5); ALKALINE PHOSPHATASE 48 U/L (40-136); BILIRUBIN,TOTAL 0.2 MG/DL (0.1-1.0); BUN/CREATININE RATIO 41; CALCIUM 9.9 MG/DL (8.5-10.1); CARBON DIOXIDE 24 MMOL/L (21-32); CHLORIDE 110 MMOL/L (98-107); GFR ESTIMATED > 60; GLUCOSE 102 MG/DL (70-105); POTASSIUM 3.5 MMOL/L (3.6-5.0); SODIUM 141 MMOL/L (135-145); TOTAL PROTEIN 5.7 GM/DL (6.4-8.2)
[2019-05-16] MEDS: inSUlin ASPART (NovoLOG) 1 UNIT/0.01 ML (CHARGE PER UNIT) SC SCH ×2 (05:58→12:11)
[2019-05-16] MEDS: ISOSORBIDE MONONITRATE 60 MG (IMDUR) TAB PO SCH (06:08)
[2019-05-16] MEDS: CATHETER FLUSH 10 ML SYR IV SCH (06:09)
[2019-05-16] MEDS ORDERED: predniSONE 20 MG TAB PO SCH (07:00)
[2019-05-16] MEDS: RT-ADVAIR HFA 115/21 MCG PER PUFF IH SCH (07:11)
--- NOTE | 2019-05-16 07:17 | NUR ---
patient states she wears 3 L at home; patient in bed during svn breathing tx and tolerated it well. No signs of distress noted at this time
[2019-05-16 08:00] VITALS: BP 169/80
--- NOTE | 2019-05-16 08:20 | Pulmonary Progress Note ---
Subjective Time Seen by a Provider: 08:23 Sepsis Event Evaluation Height, Weight, BMI Height: 5'5.00" Weight: 237lbs. 4.0oz. 107.573197ez; 36.9 BMI Method:Stated Exam Exam Vital Signs Date Time Temp Pulse Resp B/P (MAP) Pulse Ox O2 Delivery O2 Flow Rate FiO2 05/16/19 07:17 98 Nasal Cannula 3.00 05/16/19 07:11 98 Nasal Cannula 3.00 05/16/19 07:00 63 05/16/19 04:50 97.8 70 19 165/85 (111) 98 High Flow N/C 3.00 05/16/19 02:48 97 Nasal Cannula 3.00 05/16/19 01:00 58 05/16/19 00:00 97.4 84 18 155/87 (109) 99 High Flow N/C 3.00 05/15/19 22:20 94 Nasal Cannula 3.00 05/15/19 20:02 97.2 74 18 159/80 (106) 96 High Flow N/C 3.00 05/15/19 20:00 Nasal Cannula 3.00 05/15/19 19:04 95 Nasal Cannula 3.00 05/15/19 19:00 68 05/15/19 15:42 96.9 76 20 149/84 (105) 97 High Flow N/C 3.00 05/15/19 15:16 96 Nasal Cannula 3.00 05/15/19 12:42 89 05/15/19 11:42 98.5 65 18 155/78 (103) 100 High Flow N/C 3.00 05/15/19 11:07 95 Nasal Cannula 3.00 I & O 05/16/19 07:00 Intake Total 2176 ml Balance 2176 ml Height & Weight Height: 5'5.00" Weight: 237lbs. 4.0oz. 107.529656ej; 36.9 BMI Method:Stated General Appearance: No Apparent Distress, WD/WN, Anxious, Chronically ill, Obese HEENT: PERRL/EOMI, Normal ENT Inspection, Pharynx Normal, Moist Mucous Membranes Neck: Full Range of Motion, Normal Inspection, Non Tender Respiratory: Chest Non Tender, No Accessory Muscle Use, No Respiratory Distress, Accessory Muscle Use, Crackles, Decreased Breath Sounds, Wheezing Cardiovascular: Regular Rate, Rhythm, No Edema, No Gallop, No JVD, No Murmur, Normal Peripheral Pulses Capillary Refill: Less Than 3 Seconds Extremity: Normal Capillary Refill, Normal Inspection, Normal Range of Motion, Non Tender, No Calf Tenderness, No Pedal Edema Neurologic/Psychiatric: Alert, Oriented x3, No Motor/Sensory Deficits, Normal Mood/Affect Skin: Normal Color, Warm/Dry Lymphatic: No Adenopathy Results Lab Laboratory Tests 05/15/19 05:55 05/16/19 05:23 Assessment/Plan Assessment/Plan COPDAE -prednisone taper -SVNS Q 4 -ABG C02 35 - advair Pulmonary edema probably secondary to CHF -Cardiology following Morbid obesity DRISS FUNES DO May 16, 2019 08:20
[2019-05-16] MEDS: amLODIPine 10 MG (NORVASC) TAB PO SCH (09:00)
[2019-05-16] MEDS: SENNA W/DOCUSATE (SENOKOT S) TABLET PO SCH (09:00)
[2019-05-16] MEDS: CLOPIDOGREL 75 MG (PLAVIX) TABLET PO SCH (09:00)
[2019-05-16] MEDS: LORATADINE (CLARITIN) 10 MG TAB PO SCH (09:00)
[2019-05-16] MEDS: APIXABAN 5 MG (ELIQUIS) TABLET PO SCH (09:00)
[2019-05-16] MEDS: FLUTICASONE NASAL SPRAY (FLONASE) 16 GM BTL NS SCH (09:01)
[2019-05-16] MEDS ORDERED: PRED10TA22 PO (10:35)
--- NOTE | 2019-05-16 10:37 | Discharge Summary ---
Diagnosis/Chief Complaint Date of Admission May 12, 2019 at 14:45 Date of Discharge Discharge Date: May 16, 2019 Admission Diagnosis Assessment: Acute exacerbation of COPD failed outpatient antibiotic and steroid regimen Acute exacerbation of diastolic heart failure requiring diuretics Obesity hypoventilation syndrome Obstructive sleep apnea sees Dr. Thomas regularly Atrial fibrillation Hypertension Obesity Bradycardia episodes Chronic oral anticoagulation CAD previous stents placed Plan: IV steroids Cardiology and pulmonology consultations are appreciated Maximum nebulized treatments and oxygen supplementation May need BiPAP Monitor labs Home meds Maintain oral anticoagulation Discharge Diagnosis (1) COPD exacerbation Status: Acute (2) Atrial fibrillation Status: Chronic (3) Diastolic CHF Status: Acute (4) Essential (primary) hypertension Status: Chronic (5) CAD (coronary artery disease) Status: Chronic (6) Debility Status: Chronic (7) Obesity hypoventilation syndrome Status: Chronic (8) Pulmonary HTN Status: Chronic (9) Respiratory failure Status: Acute (10) Debility Status: Chronic (11) Morbid obesity Status: Chronic (12) On continuous oral anticoagulation Status: Chronic (13) Bradycardia Status: Acute Discharge Summary Discharge Physical Exam Allergies: Coded Allergies: Penicillins (Verified Allergy, Unknown, 03/12/17) Sulfa (Sulfonamide Antibiotics) (Verified Allergy, Unknown, 03/12/17) adhesive tape (Verified Allergy, Unknown, 03/12/17) Vitals & I&Os Vital Signs Date Time Temp Pulse Resp B/P (MAP) Pulse Ox O2 Delivery O2 Flow Rate FiO2 05/16/19 08:00 97.9 53 18 169/80 (109) 96 High Flow N/C 3.00 05/13/19 02:11 96 General Appearance: No Apparent Distress, WD/WN Respiratory: Chest Non Tender, Lungs Clear, Normal Breath Sounds, No Accessory Muscle Use, No Respiratory Distress Cardiovascular: Regular Rate, Rhythm, No Edema, No Gallop, No JVD, No Murmur, Normal Peripheral Pulses Neurologic/Psychiatric: Alert, Oriented x3, No Motor/Sensory Deficits, Normal Mood/Affect Hospital Course Was the Problem List Reviewed?: Yes Hospital course: Patient had an uneventful hospital course. Patient was admitted after failed oral antibiotics and oral steroids given by primary care provider the week before and required oxygen supplementation during the day of which she is chronically on at night so she was placed on IV steroids Dr. Thomas was consulted along with cardiology and IV diuresis was initiated for diastolic congestive heart failure which really helped the exacerbation of COPD. She responded slowly but at time of discharge she had clear to auscultation bilaterally lung exam and she was willing and agreeable for discharge on oral steroids and will have close follow-up with [facility] and I will evaluate her for daytime oxygen supplementation. Long-term prognosis poor considering obesity hypoventilation syndrome. Labs (last 24 hrs) Laboratory Tests 05/15/19 15:42: Glucometer 309H 05/15/19 21:13: Glucometer 311H 05/16/19 05:23: White Blood Count 13.6H, Red Blood Count 4.72, Hemoglobin 13.6, Hematocrit 43, Mean Corpuscular Volume 91, Mean Corpuscular Hemoglobin 29, Mean Corpuscular Hemoglobin Concent 32, Red Cell Distribution Width 14.3, Platelet Count 220, Mean Platelet Volume 10.6H, Neutrophils (%) (Auto) 74, Lymphocytes (%) (Auto) 17, Monocytes (%) (Auto) 8, Eosinophils (%) (Auto) 0, Basophils (%) (Auto) 0, Neutrophils # (Auto) 10.1H, Lymphocytes # (Auto) 2.3, Monocytes # (Auto) 1.1H, Eosinophils # (Auto) 0.1, Basophils # (Auto) 0.0, Sodium Level 141, Potassium Level 3.5L, Chloride Level 110H, Carbon Dioxide Level 24, Anion Gap 7, Blood Urea Nitrogen 33H, Creatinine 0.80, Estimat Glomerular Filtration Rate > 60, BUN/Creatinine Ratio 41, Glucose Level 102, Calcium Level 9.9, Corrected Calcium 10.3H, Total Bilirubin 0.2, Aspartate Amino Transf (AST/SGOT) 6, Alanine Aminotransferase (ALT/SGPT) 11, Alkaline Phosphatase 48, Total Protein 5.7L, Albumin 3.5 05/16/19 05:50: Glucometer 92 05/16/19 11:06: Glucometer 208H Microbiology 05/12/19 Blood Culture - Preliminary, Resulted No growth Patient resulted labs reviewed. Pending Labs Laboratory Tests 05/16/19 05:23: White Blood Count 13.6, Red Blood Count 4.72, Hemoglobin 13.6, Hematocrit 43, Mean Corpuscular Volume 91, Mean Corpuscular Hemoglobin 29, Mean Corpuscular Hem oglobin Concent 32, Red Cell Distribution Width 14.3, Platelet Count 220, Mean Platelet Volume 10.6, Neutrophils (%) (Auto) 74, Lymphocytes (%) (Auto) 17, Monocytes (%) (Auto) 8, Eosinophils (%) (Auto) 0, Basophils (%) (Auto) 0, Neutrophils # (Auto) 10.1, Lymphocytes # (Auto) 2.3, Monocytes # (Auto) 1.1, Eosinophils # (Auto) 0.1, Basophils # (Auto) 0.0, Sodium Level 141, Potassium Level 3.5, Chloride Level 110, Carbon Dioxide Level 24, Anion Gap 7, Blood Urea Nitrogen 33, Creatinine 0.80, Estimat Glomerular Filtration Rate > 60, BUN/Creatinine Ratio 41, Glucose Level 102, Calcium Level 9.9, Corrected Calcium 10.3, Total Bilirubin 0.2, Aspartate Amino Transf (AST/SGOT) 6, Alanine Aminotransferase (ALT/SGPT) 11, Alkaline Phosphatase 48, Total Protein 5.7, [place] min 3.5 05/16/19 05:50: Glucometer 92 05/16/19 11:06: Glucometer 208 Discussion & Recommendations Discharge Planning: <30 minutes discharge planning Discharge Home Medications: Active Scripts Active Prednisone 10 Mg Tab.ds.pk 10 Mg PO DAILY Take 4 tabs(40mg)daily,decrease by 1 tab(10MG)daily. Reported Prednisone 20 Mg Tab 20 Mg PO UD takes 3 tabs x2 days, then 2 tabs 2 x2 days, then 1 tab x2 days (picked up on 05-09-2019) Breo Ellipta 200-25 Mcg INH (Fluticasone/Vilanterol) 1 Each Blst.w.dev 1 Puff PO DAILY Levofloxacin 750 Mg Tablet 750 Mg PO DAILY PICKED UP A 10 DAY SUPPLY ON 05-09-2019 AND TOOK 4 DOSES Iprat-Albut 0.5-3(2.5) mg/3 ml (Ipratropium/Albuterol Sulfate) 3 Ml Ampul.neb 3 Ml IH Q4H PRN Isosorbide Mononitrate ER (Isosorbide Mononitrate) 60 Mg Tab 60 Mg PO DAILY Hydrochlorothiazide 25 Mg Tablet 25 Mg PO DAILY Tramadol HCl 50 Mg Tablet 50 Mg PO Q4H PRN Ondansetron Odt (Ondansetron) 4 Mg Tab.rapdis 4 Mg PO Q6H PRN Spironolactone 25 Mg Tablet 25 Mg PO DAILY Atorvastatin Calcium 40 Mg Tablet 40 Mg PO HS Cetirizine HCl 10 Mg Tablet 10 Mg PO DAILY Amlodipine Besylate 10 Mg Tablet 10 Mg PO DAILY Eliquis (Apixaban) 5 Mg Tablet 5 Mg PO BID Advair 250-50 Diskus (Fluticasone/Salmeterol) 1 Each Blst.w.dev 1 Puff INH BID Fluticasone Propionate 16 Gm [place].susp 2 [place] NS DAILY Proair Hfa (Albuterol Sulfate) 1 Puff Puff 1 Puff INH Q6H PRN Omeprazole 20 Mg Capsule.dr 20 Mg PO DAILY PRN Clopidogrel (Clopidogrel Bisulfate) 75 Mg Tablet 75 Mg PO DAILY Montelukast Sodium 10 Mg Tablet 10 Mg PO HS PRN Instructions to patient/family Please see electronic discharge instructions given to patient. Clinical Quality Measures DVT/VTE Risk/Contraindication: Risk Factor Score Per Nursin RFS Level Per Nursing on Admit: 4+=Very High Problem Qualifiers (1) Atrial fibrillation: Atrial fibrillation type: chronic Qualified Codes: I48.2 - Chronic atrial fibrillation (2) Diastolic CHF: Heart failure chronicity: acute Qualified Codes: I50.31 - Acute diastolic (congestive) heart failure (3) CAD (coronary artery disease): Coronary Disease-Associated Artery/Lesion type: [place] artery [place] vs. transplanted heart: [place] heart Associated angina: without angina Qualified Codes: I25.10 - Atherosclerotic heart disease of [place] coronary artery without angina pectoris (4) Respiratory failure: Chronicity: acute Respiratory failure complication: hypoxia Qualified Codes: J96.01 - Acute respiratory failure with hypoxia MIGEL MCGUIRE DO May 16, 2019 10:37
--- NOTE | 2019-05-16 12:21 | NUR ---
Patient was on 3 L and satting 97%; RT removed O2 and patient was on RA for 42 minutes and O2 was at 91% at rest; patient was then walked for 6 mins and did not desat below 94% on RA. During the day patient is not requiring O2 at rest or on exertion
--- NOTE | 2019-05-16 12:40 | Cardiology Progress Note ---
Cardiology SOAP Progress Note Subjective: No cardiac symptoms. Objective: I&O/Vital Signs 05/16/19 05/16/19 05/16/19 05/16/19 01:00 02:48 04:50 07:00 Temp 97.8 Pulse 58 70 63 Resp 19 B/P (MAP) 165/85 (111) Pulse Ox 97 98 O2 Delivery Nasal Cannula High Flow N/C O2 Flow Rate 3.00 3.00 05/16/19 05/16/19 05/16/19 05/16/19 07:11 07:17 08:00 08:00 Temp 97.9 Pulse 53 Resp 18 B/P (MAP) 169/80 (109) Pulse Ox 98 98 96 O2 Delivery Nasal Cannula Nasal Cannula Nasal Cannula High Flow N/C O2 Flow Rate 3.00 3.00 3.00 3.00 05/16/19 12:21 Pulse Ox 97 O2 Flow Rate 3.00 05/16/19 00:00 Intake Total 2076 ml Balance 2076 ml Weight (Pounds): 237 Weight (Ounces): 4.0 Weight (Calculated Kilograms): [id number] Constitutional: appears stated age, AAO x 3; No apparent distress; well- developed, well-nourished Respiratory: chest is bilaterally symmetric, lungs clear to auscultation Cardiovascular: irregularly irregular; No extra beats, No parasternal heave is noted, No JVD, No edema, No bradycardia, No tachycardia, No point of maximal impulse, No cardiac thrills are palpable; S1 and S2; No gallop/S3, No gallop/S4, No diastolic murmur, No systolic murmur, No friction rub, No click, No other Gastrointestional: No tender, No soft, No round, No distended, No pulsatile mass, No organomegaly, No guarding, No rebound, No tenderness, No hernia, No mass, No audible bowel sounds, No abnormal bowel sounds, No abdominal bruits, No spleenomegaly, No other Extremities: No normal range of motion, No non-tender, No normal inspection, No pedal edema, No calf tenderness, No normal capillary refill, No pelvis stable, No calf tenderness, No inflammation, No pedal edema, No slow capillary refill, No swelling, No other, No abrasion, No clubbing, No cyanosis, No ecchymosis, No laceration, No no lower extremity edema bilateral, No significant edema, No tenderness, No wound Neurologic/Psychiatric: no motor/sensory deficits, alert, normal mood/affect, oriented x 3, power is 5/5 both on sides Skin: No rash, No ulcerations Results/Procedures: Labs Laboratory Tests 05/15/19 15:42: Glucometer 309H 05/15/19 21:13: Glucometer 311H 05/16/19 05:23: White Blood Count 13.6H, Red Blood Count 4.72, Hemoglobin 13.6, Hematocrit 43, Mean Corpuscular Volume 91, Mean Corpuscular Hemoglobin 29, Mean Corpuscular Hemoglobin Concent 32, Red Cell Distribution Width 14.3, Platelet Count 220, Mean Platelet Volume 10.6H, Neutrophils (%) (Auto) 74, Lymphocytes (%) (Auto) 17, Monocytes (%) (Auto) 8, Eosinophils (%) (Auto) 0, Basophils (%) (Auto) 0, Neutrophils # (Auto) 10.1H, Lymphocytes # (Auto) 2.3, Monocytes # (Auto) 1.1H, Eosinophils # (Auto) 0.1, Basophils # (Auto) 0.0, Sodium Level 141, Potassium Level 3.5L, Chloride Level 110H, Carbon Dioxide Level 24, Anion Gap 7, Blood Urea Nitrogen 33H, Creatinine 0.80, Estimat Glomerular Filtration Rate > 60, BUN/Creatinine Ratio 41, Glucose Level 102, Calcium Level 9.9, Corrected Calcium 10.3H, Total Bilirubin 0.2, Aspartate Amino Transf (AST/SGOT) 6, Alanine Aminotransferase (ALT/SGPT) 11, Alkaline Phosphatase 48, Total Protein 5.7L, Albumin 3.5 05/16/19 05:50: Glucometer 92 05/16/19 11:06: Glucometer 208H Microbiology 05/12/19 Blood Culture - Preliminary, Resulted No growth A/P: Assessment/Dx: Shortness of breath, likely multi-factorial, acute exacerbation of COPD, bronchial asthma Acute on chronic exacerbation of severe COPD - managed by Dr. Thomas Bronchial asthma - managed by Dr. Thomas Acute on chronic diastolic CHF - tx with diuretics Obesity-hypoventilation syndrome with nocturnal hypoxia Chronic persistent atrial fibrillation - bradycardia, 6 beat run of tachycardia OAC with Eliquis Echocardiogram of 01-23-[address] Carolina showed LVH. LVEF 70-75%. Grade 3 diastolic dysfunction. LA and RA dilated. Mild MR. Mild to mod TR. PASP 40- 45mmHg. Small pericardial effusion, which is chronic, seen on echo of 07-10-17 and February 2017. CAD. 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 The prox/ostial left main was stented with a 4.0 x 12 mm Synergy stent History of PVCs previously maintained on Coreg which was discontinued d/t episodes of bradycardia Hypertension - not well controlled Electrolyte abnormalities - replace Plan: Agree with diuretics for acute on chronic congestive diastolic heart failure. Continue dual antiplatelet therapy. Continue Eliquis as for atrial fibrillation. Atrial fibrillation with bradycardia, asymptomatic she may be a candidate for permanent pacemaker. The patient is not on any rate controlling agents. Echocardiogram. Thank you for your consultation. Please call me if you have any questions. Brooke Llanes MD, FACP, FACC, FSCAI, FHRS, CCDS Interventional Cardiology Cardiac Electrophysiology Vascular Medicine and Endovascular Interventions Melinda LLANES MD May 16, 2019 12:40 pm
== END 2019-05-16 14:20 | disposition home or self-care (01) | DRG 190 ==
LOC: EDUNIT# 13:12 → ER FS 13:14 → 4TH 14:45
PROVIDERS: ADMIT Internal Medicine; ATTEND Internal Medicine
DX: J44.1 Chronic obstructive pulmonary disease with (acute) exacerbation (principal); I48.2 Chronic atrial fibrillation; I11.0 Hypertensive heart disease with heart failure; I50.33 Acute on chronic diastolic (congestive) heart failure; E66.2 Morbid (severe) obesity with alveolar hypoventilation; J96.01 Acute respiratory failure with hypoxia; I25.10 Atherosclerotic heart disease of native coronary artery without angina pectoris; I08.1 Rheumatic disorders of both mitral and tricuspid valves; E78.00 Pure hypercholesterolemia, unspecified; I27.20 Pulmonary hypertension, unspecified; J30.2 Other seasonal allergic rhinitis; K21.9 Gastro-esophageal reflux disease without esophagitis; M54.9 Dorsalgia, unspecified; M19.91 Primary osteoarthritis, unspecified site; F41.9 Anxiety disorder, unspecified; F32.9 Major depressive disorder, single episode, unspecified; R11.0 Nausea; E87.6 Hypokalemia; Z95.5 Presence of coronary angioplasty implant and graft; Z79.01 Long term (current) use of anticoagulants; Z90.5 Acquired absence of kidney; Z85.528 Personal history of other malignant neoplasm of kidney; Z88.0 Allergy status to penicillin; Z88.2 Allergy status to sulfonamides; Z68.39 Body mass index [BMI] 39.0-39.9, adult
CPT/HCPCS: 36415; 71045; 80053; 81000; 82805; 82962; 83880; 84484; 85007; 85025; 85027; 87040; 93005; 93306; 94640; 94760; 94761; 96365; 96375

== ENCOUNTER → 2019-06-24 | Outpatient (CLI) | payer MEDICARE, MEDICAID ==
[~2019-06-24] MED LIST changes: +FLUT1BLS PO; +HYDR50TA3 PO; +LEVO750T39 PO; +LISI40TA PO; -OMEP20CA12 PO; +OMEP20CA13 PO; +PRD20T PO; +PRED10TA22 PO
--- NOTE | 2019-06-24 17:01 | Diagnostic Imaging Report ---
INDICATION: Flank pain. FINDINGS: There are surgical clips in the right upper quadrant. The bowel gas pattern is nonspecific. There are scattered calcifications, indeterminate between phleboliths or possible ureteral stones. There are mild degenerative changes in the spine. IMPRESSION: Scattered round calcifications, some of which overlie the expected course of both ureters. These are likely phleboliths although the possibility of ureteral stone cannot be entirely excluded. Recommend clinical correlation and, if warranted, followup with a noncontrast CT. Nonspecific bowel gas pattern. Dictated by: Dictated on workstation # [id number]
== END ==
LOC: RAD FS 10:58
PROVIDERS: ATTEND Family Medicine
DX: N28.89 Other specified disorders of kidney and ureter (principal); R10.9 Unspecified abdominal pain; Z98.890 Other specified postprocedural states
CPT/HCPCS: 74018

== ENCOUNTER → 2019-07-03 | Outpatient (CLI) | payer MEDICARE, MEDICAID ==
--- NOTE | 2019-07-03 11:11 | Diagnostic Imaging Report ---
PROCEDURE: CT urinary tract, rule out kidney stone. TECHNIQUE: Multiple contiguous axial images were obtained through the abdomen and pelvis without the use of intravenous contrast. Auto Exposure Controls were utilized during the CT exam to meet ALARA standards for radiation dose reduction. INDICATION: Left flank pain for one week. COMPARISON: No prior studies are available for comparison. FINDINGS: Imaging through the lung bases does show some linear scarring or atelectasis in the left lower lobe. No discrete liver mass is identified. The gallbladder is surgically absent. The pancreas and spleen are unremarkable. No adrenal mass is detected. Tiny nonobstructive calculi in the lower pole of the left kidney are noted. No definite ureteral calculi or evidence of hydronephrosis is identified. Tiny cortical low density in the left kidney is also seen, too small to characterize but perhaps a cyst. Aorta is nonaneurysmal. The bowel loops appear to be nonobstructed. There is diverticulosis of the sigmoid colon and descending colon but no evidence of acute diverticulitis. There is no ascites. No bladder calculi are seen. The uterus is surgically absent. IMPRESSION: 1. Tiny nonobstructing left sided renal calculi. No ureteral calculi or hydronephrosis is detected. 2. Uncomplicated colonic diverticulosis. 3. No acute feature is detected. Dictated by: Dictated on workstation # [id number]
== END ==
LOC: RAD FS 09:28
PROVIDERS: ATTEND Family Medicine
DX: K57.30 Diverticulosis of large intestine without perforation or abscess without bleeding (principal)
CPT/HCPCS: 74176

== ENCOUNTER 2019-07-16 13:53 | Outpatient (RCR) | payer MEDICARE, MEDICAID ==
--- NOTE | 2019-07-16 16:13 | Diagnostic Imaging Report ---
INDICATION: Left low back pain. TIME OF EXAM: 2:09 p.m. EXAMINATION: Single view of the abdomen was obtained. COMPARISON: Correlation is made with prior radiograph from 06/24/2019. FINDINGS: The bowel gas pattern is unremarkable. Abdominal calcifications are noted, consistent with phleboliths. Surgical clips in the right upper quadrant are noted. There is no free air. IMPRESSION: No acute feature detected. Dictated by: Dictated on workstation # [id number]
[2019-09-04] MEDS ORDERED: PRD10T PO (13:41)
[2019-09-04] MEDS ORDERED: MULT-178 PO (13:41)
[2019-09-04] MEDS ORDERED: METO-387 PO (13:41)
[2019-09-04] MEDS ORDERED: DOCU100T7 PO (13:41)
== END 2019-10-14 | disposition home or self-care (01) ==
LOC: RAD 13:53
PROVIDERS: ATTEND Urology
DX: N20.0 Calculus of kidney (principal)
CPT/HCPCS: 74018

== ENCOUNTER 2019-09-04 13:33 | Outpatient (CLI) | payer MEDICARE, MEDICAID ==
[~2019-09-04] VITALS: Ht 165 cm; Wt 104.5 kg
[2019-09-04] MEDS ORDERED: METO-387 PO (13:41)
[2019-09-04] MEDS ORDERED: MULT-178 PO (13:41)
[2019-09-04] MEDS ORDERED: PRD10T PO (13:41)
[2019-09-04] MEDS ORDERED: DOCU100T7 PO (13:41)
== END 2019-09-04 13:54 | disposition home or self-care (01) ==
LOC: PREOP 13:33
PROVIDERS: ATTEND Urology
DX: Z01.818 Encounter for other preprocedural examination (principal)

== ENCOUNTER 2019-09-10 06:40 | Day surgery (SDC) | payer MEDICARE, MEDICAID ==
[~2019-09-10] VITALS: Ht 165 cm; Wt 104.5 kg
[2019-09-10] VITALS (7 sets, daily range): BP systolic 120–150; BP diastolic 69–98
[~2019-09-10 06:40] MED LIST changes: +DOCU100T7 PO; +METO-387 PO; +MULT-178 PO
[2019-09-10] MEDS ORDERED: RT-ALBUTEROL SULF 2.5 MG/3 ML PRE-MIX VIAL ONE (07:16)
--- NOTE | 2019-09-10 07:19 | Progress Note-Pre Operative ---
Pre-Operative Progress Note H&P Reviewed The H&P was reviewed, patient examined and no changes noted. Date Seen by Provider: Sep 10, 2019 Time Seen by Provider: 07:18 Date H&P Reviewed: Sep 10, 2019 Time H&P Reviewed: 07:18 Pre-Operative Diagnosis: MIXED INCONTINENCE, OAB, AND ISD LENNY REED MD Sep 10, 2019 07:19 POS
[2019-09-10] MEDS ORDERED: proPOfol 200 MG/20 ML (DIPRIVAN) VIAL IV ONE (07:58)
[2019-09-10] MEDS ORDERED: fentaNYL INJECTION 100 MCG/2 ML AMP ONE (07:59)
[2019-09-10] MEDS ORDERED: KETAMINE/NaCl 50 MG/5 ML SYRINGE (ED ONLY) ONE (07:59)
[2019-09-10] MEDS ORDERED: MIDAZOLAM 2 MG/2 ML (VERSED) VIAL ONE (07:59)
[2019-09-10] MEDS ORDERED: LACTATED RINGERS 1,000 ML IV PRN (08:07)
[2019-09-10] MEDS ORDERED: LEVOFLOXACIN 500 MG/100 ML IV 100 ML IV ONE (08:15)
[2019-09-10] MEDS ORDERED: LEVOFLOXACIN 500 MG/100 ML IV 100 ML ONE (08:17)
[2019-09-10] MEDS ORDERED: LIDOCAINE UROJET 2% GEL 10 ML PKG ONE (08:25)
--- NOTE | 2019-09-10 08:31 | Progress Note-Post Operative ---
Post-Operative Progess Note Surgeon (s)/Toe Closing Machine Tender (s) Surgeon LENNY REED MD Toe Closing Machine Tender: NONE Pre-Operative Diagnosis MIXED INCONTINENCE, OAB, AND ISD Post-Operative Diagnosis SAME Procedure & Operative Findings Date of Procedure 09/10/19 Procedure Performed/Findings MACROPLASTIQUE IMPLANT Anesthesia Type IV SEDATION AND LOCAL Estimated Blood Loss Estimated blood loss (mL): NEGLIGIBLE Specimens/Packing Specimens Removed NONE Packing: NONE LENNY REED MD Sep 10, 2019 08:31 POS
--- NOTE | 2019-09-10 08:35 | Discharge Inst-Urology ---
Discharge Inst-Urology Reconcile Patient Problems Problems Reviewed?: Yes Final Diagnosis INCONTINENCE AND CYSTOCELE Patient Instructions/Follow Up Plan/Assessment/Instructions Please make appointment to been seen in office in 4 weeks. In 48 hours, if no bleeding, may resume Plavix and Eliquis Increase oral fluids for 48 hours and then as needed. Rest for 2 weeks Diet as tolerated. If questions or concerns contact your physician Or seek help at emergency department. LENNY REED MD Sep 10, 2019 08:35 POS
[2019-09-10] MEDS ORDERED: ONDANSETRON 4 MG/2 ML (SDV) Z0FRAN ONE (09:02)
[2019-09-10] MEDS ORDERED: DEXAMETHASONE 10 MG/ML (DECADRON) 1 ML VIAL ONE (09:02)
[2019-09-10] MEDS ORDERED: SEVOFLURANE (ULTANE) 15 ML INHAL SOLN ONE ×2 (09:09)
[2019-09-10] MEDS ORDERED: fentaNYL INJECTION 100 MCG/2 ML AMP IVP ONE (09:30)
[2019-09-10] MEDS ORDERED: ONDANSETRON 4 MG/2 ML (SDV) Z0FRAN IVP PRN (09:30)
--- NOTE | 2019-09-10 10:07 | Anesthesia-General Post-Op ---
General Patient Condition Mental Status/LOC: Same as Preop Cardiovascular: Satisfactory Nausea/Vomiting: Absent Respiratory: Satisfactory Pain: Controlled Complications: Absent Post Op Complications Complications None Follow Up Care/Instructions Patient Instructions None needed. Anesthesia/Patient Condition Patient Condition Patient is doing well, no complaints, stable vital signs, no apparent adverse anesthesia problems. No complications reported per nursing. VANESSA HOPKINS CRNA Sep 10, 2019 10:07 POS
--- NOTE | 2019-09-10 13:26 | OPERATIVE REPORT ---
DATE OF SERVICE: 09/10/2019 PREOPERATIVE DIAGNOSES: Mixed urinary incontinence with overactive bladder, small capacity and ISD. POSTOPERATIVE DIAGNOSES: Mixed urinary incontinence with overactive bladder, small capacity and ISD. OPERATION PERFORMED: Macroplastique implant. SURGEON: Aleksey Reed MD ANESTHESIA: General. COMPLICATIONS: None. DESCRIPTION OF PROCEDURE: Under satisfactory general anesthesia, the patient in lithotomy position, genitalia were prepped and draped in the usual sterile fashion. Cystoscope was introduced in the bladder. Bladder was found to be of a small capacity and urethra was patulous. I went ahead and injected the Macroplastique implant full syringe at the 6 o'clock position and half a syringe on each tendon 2 o'clock position. There was very good coaptation of the mid urethra. There was very minimal bleeding. I left the bladder half full to perform a Valsalva maneuver, it was negative. I emptied the bladder. The patient tolerated the procedure and anesthesia well and was sent to recovery room in stable condition. Job ID: [id number] DocumentID: [id number] Dictated Date: 09/10/2019 09:16:06 Gill Net Stringer Date: 09/10/2019 13:25:58 Dictated By: ALEKSEY REED MD
== END 2019-09-10 10:50 | disposition home or self-care (01) ==
LOC: SDC 06:40
PROVIDERS: ATTEND Urology
DX: N36.42 Intrinsic sphincter deficiency (ISD) (principal); N32.81 Overactive bladder; N39.46 Mixed incontinence; I25.10 Atherosclerotic heart disease of native coronary artery without angina pectoris; I48.91 Unspecified atrial fibrillation; J44.9 Chronic obstructive pulmonary disease, unspecified; K21.9 Gastro-esophageal reflux disease without esophagitis; I10 Essential (primary) hypertension; E66.01 Morbid (severe) obesity due to excess calories; Z68.38 Body mass index [BMI] 38.0-38.9, adult; F32.9 Major depressive disorder, single episode, unspecified; F41.9 Anxiety disorder, unspecified; M19.90 Unspecified osteoarthritis, unspecified site; Z88.0 Allergy status to penicillin; Z88.2 Allergy status to sulfonamides; Z91.048 Other nonmedicinal substance allergy status; Z90.710 Acquired absence of both cervix and uterus; Z88.8 Allergy status to other drugs, medicaments and biological substances; Z95.5 Presence of coronary angioplasty implant and graft; Z99.81 Dependence on supplemental oxygen; Z79.51 Long term (current) use of inhaled steroids; Z79.02 Long term (current) use of antithrombotics/antiplatelets
CPT/HCPCS: 87081; 94640

== ENCOUNTER → 2019-11-26 | Outpatient (CLI) | payer MEDICARE, MEDICAID ==
[~2019-11-26] MED LIST changes: -METO-387 PO; -METO-395 PO; +MTP100TCR PO; +MTP25TSR PO; +OMEP-280 PO; -OMEP20CA13 PO; -TRAM50TA2 PO; +TRM50T PO
== END ==
LOC: CARD 08:33
PROVIDERS: ATTEND Nurse Practitioner Family
DX: I48.20 Chronic atrial fibrillation, unspecified (principal); R06.09 Other forms of dyspnea; R53.83 Other fatigue; I10 Essential (primary) hypertension; R00.2 Palpitations
CPT/HCPCS: 93225; 93226

== ENCOUNTER 2019-12-18 05:40 | Outpatient (CLI) | payer MEDICARE, MEDICAID ==
[~2019-12-18] VITALS: Ht 165 cm; Wt 100.0 kg
[2019-12-18] MEDS ORDERED: APIX5TAB PO (12:08)
[2019-12-18] MEDS ORDERED: CLOP75TA69 PO (12:08)
== END 2019-12-18 13:08 | disposition home or self-care (01) ==
LOC: PREOP 05:40
PROVIDERS: ATTEND Urology
DX: Z01.818 Encounter for other preprocedural examination (principal)

== ENCOUNTER 2020-03-05 07:11 | Outpatient (RCR) | payer MEDICARE, MEDICAID ==
[~2020-03-05] VITALS: Ht 165 cm; Wt 109.0 kg
[~2020-03-05 07:11] MED LIST changes: -MONT10TA24 PO; +MONT10TA26 PO; -OMEP-280 PO; +OMEP20CA18 PO
== END 2020-03-05 15:47 | disposition home or self-care (01) ==
LOC: PREOP 07:11
PROVIDERS: ATTEND Urology
DX: Z01.818 Encounter for other preprocedural examination (principal); Z11.59 Encounter for screening for other viral diseases
CPT/HCPCS: 87635

== ENCOUNTER 2020-03-10 06:23 | Day surgery (SDC) | payer MEDICARE, MEDICAID ==
[~2020-03-10] VITALS: Ht 165 cm; Wt 109.0 kg
[2020-03-10] VITALS (10 sets, daily range): BP systolic 107–163; BP diastolic 57–92
--- OUTSIDE RECORDS SUMMARY | 2020-03-10 06:29 | XMS REPORT | Continuity of Care Document ---
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 Name Role Phone [facility] Unavailable Unavailable Problems Problem Status Onset Date Classification Date Reported Comments Source MALIGNANT NEOPLASM OF KIDNEY, EXCEPT PEL Active 03/12/2014 [facility] BENIGN ESSENTIAL HYPERTENSION Active 03/12/2014 [facility] CORONARY ATHEROSCLEROSIS OF [place] CORON Active 03/12/2014 [facility] CHRONIC OBSTRUCTIVE ASTHMA, UNSPECIFIED Active 03/12/2014 [facility] ESOPHAGEAL REFLUX Active 03/12/2014 [facility] BACKACHE, UNSPECIFIED Active 03/12/2014 [facility] OTHER CHRONIC PAIN Active 03/12/2014 [facility] DEPRESSIVE DISORDER, NOT ELSEWHERE CLASS Active 03/12/2014 [facility] PERSONAL HISTORY OF TRANSIENT ISCHEMIC A Active 03/12/2014 [facility] PERSONAL HISTORY OF ALLERGY TO SULFONAMI Active 03/12/2014 [facility] PERSONAL HISTORY OF ALLERGY TO PENICILLI Active 03/12/2014 [facility] DISORDER OF KIDNEY AND URETER. Active 09/10/2012 [facility] Renal mass (finding) Active Problem 03/13/2014 [facility] er Medications Medication Details Route Status Patient Instructions Ordering Provider Order Date Source Colace 100 mg oral capsule 1 C AP, PO, BID (2 times a day), PRN constipation, # 60 CAP, 0 Refill(s), Prescription Written (Rx), Indication: Constipation Activ e ALVAREZ 03/12/2014 [facility] Percocet 7.5/325 oral tablet 1 TAB, PO, Q4H (Every 4 hours), PRN pain, # 24 TAB, 0 Refill(s), Prescription Written (Rx), Indication: Pain Active ALVAREZ [facility] Singulair 10 mg oral tablet 1 TAB, PO, QPM (Every evening), 0 Refill(s), Indication: COPD Active 02/24/2014 [facility] Ambien 5 mg oral tablet 1 TAB, PO, QHS (At bedtime), PRN sleep/insomnia, 0 Refill(s), Indication: Sleep/Insomnia Active 02/24/2014 [facility] DuoNeb 0.5 mg-2.5 mg/3 mL inhalation solution 3 mL, NEB, 4 times a day, PRN Air Hunger, 0 Refill(s), Indication: Breathing Difficulty Active 02/24/2014 [facility] Nitrostat 0.4 mg sublingual tablet 1 TAB, Sublingual, Q5MIN (Every 5 minutes), PRN Chest Pain, 0 Refill(s), Indication: Chest Pain Active 02/24/2014 [facility] K-Dur 40 mEq, PO, BID (2 times a day), 0 Refill(s) Active 02/24/2014 [facility] Phenergan with Codeine 5 mL, P O, Q4H (Every 4 hours), PRN Cough, 0 Refill(s), Indication: Cough Active 02/24/2014 [facility] Lipitor 20 mg oral tablet 1 TA B, PO, Daily, 0 Refill(s), Indication: High Cholesterol Active 02/24/2014 [facility] Lotensin 40 mg oral tablet = 1 TAB, PO, BID (2 times a day), 0 Refill(s), Indication: High Blood Pressure Active 02/24/2014 [facility] Norvasc 10 mg oral tablet 1 TA B, PO, Daily, 0 Refill(s), Indication: High Blood Pressure Active 02/24/2014 [facility] Imdur 60 mg oral tablet, extended release 1 TAB, PO, BID (2 times a day), 0 Refill(s), Indication: High Blood Pressure Active 02/24/2014 [facility] ProAir HFA 90 mcg/inh inhalation aerosol 1 Puff, Inhalation, 4 times a day, 0 Refill(s), Indication: Breathing Difficulty Active 02/24/2014 [facility] Prevacid 30 mg oral delayed release capsule 1 CAP, PO, Daily, 0 Refill(s), Indication: Heartburn Active 02/24/2014 [facility] Paxil 30 mg oral tablet = 1 TA B, PO, Daily, 0 Refill(s), Indication: Depression Active 02/24/2014 [facility] ZyPREXA 10 mg oral tablet 1 TA B, PO, QHS (At bedtime), 0 Refill(s), Indication: Mood Disorder Active 02/24/2014 [facility] hydrochlorothiazide 25 mg, PO, Daily, 0 Refill(s), Indication: Fluid Retention Active 02/24/2014 [facility] Allergies, Adverse Reactions, Alerts Substance Category Reaction Severity Reaction type Status Date Reported Comments Source Adhesive tape drug allergy rash Allergy Active [facility] penicillin drug allergy rash Allergy Active [facility] Sulfa drugs drug allergy nausea and vomiting Allergy Active [facility] Telepaque drug allergy rash Allergy Active [facility] Immunizations No Data Provided for This Section Results Order Name Results Value Reference Range Date Interpretation Comments Source CHEMISTRY Magnesium 1.9 mg/dL 1.6 - 2.6 03/11/2014 <sup>8</sup>Interpretive Data: Critical High for OB Patients >=7.0 mg/dl. [facility] CHEMISTRY GFR (MDRD) 78.8 m L/min/1.73 m2 03/11/2014 <sup>4</sup>Result Comment: GFR calculat ed based on MDRD abbreviated formula.

Age(years) Average GFR
20-29 116 ml/min/1.73 m2
30-39 107 ml/min/1.73 m2
40-49 99 ml/min/1.73 m2
50-59 93 ml/min/1.73 m2
60-69 85 ml/min/1.73 m2
70+ 75 ml/min/1.73 m2

Acceptable GFR =>60 ml/min/1.73 m2
Chronic Kidney Disease <60 ml/min/1.73 m2
Kidney Failure <15 ml/min/1.73 m2 [facility] CHEMISTRY BUN 14 mg/dL 8 - 20 03/11/2014 [facility] CHEMISTRY Calcium 8.9 mg/dL 8.6 - 10.2 03/11/2014 [facility] CHEMISTRY Creatinine 0.8 mg/dL 0.7 - 1.2 03/11/2014 <sup>2</sup>Interpretive Data: The prese nce of ketone bodies can cause artificially high results in serum, plasma and urine. [facility] CHEMISTRY CO2 26 mmol/L 22 - 29 03/11/2014 [facility] CHEMISTRY Sodium 137 mmol/L 136 - 145 03/11/2014 [facility] CHEMISTRY Glucose 135 mg/dL 70 - 100 03/11/2014 [facility] CHEMISTRY AGAP 8 mmol/L 3 - 19 03/11/2014 [facility] CHEMISTRY Chloride 103 mmol/L 98 - 107 03/11/2014 [facility] CHEMISTRY Potassium 4.7 mmol/L 3.5 - 5.1 03/11/2014 [facility] CHEMISTRY Est CrCL (CG) 67.2 m L/min 03/11/2014 <sup>6</sup>Result Comment: Estimated Cr eatinine Clearance calculated based on the Cockcroft-Gault formula. [facility] HEMATOLOGY Basophils Abs 0.0 x 10'3/microL 0.0 - 0.2 03/11/2014 [facility] HEMATOLOGY Lymphocytes % 16 % 13 - 43 03/11/2014 [facility] HEMATOLOGY Eosinophils % 1 % 0 - 7 03/11/2014 [facility] HEMATOLOGY Neutrophils Abs 7.6 x 10'3/microL 1.4 - 7.2 03/11/2014 [facility] HEMATOLOGY Basophils % 0 % 0 - 3 03/11/2014 [facility] HEMATOLOGY Monocytes % 6 % 0 - 13 03/11/2014 [facility] HEMATOLOGY Lymphocytes Abs 1.6 x 10'3/microL 1.2 - 3.4 03/11/2014 [facility] HEMATOLOGY Eosinophils Abs 0.1 x 10'3/microL 0.0 - 0.5 03/11/2014 [facility] HEMATOLOGY Monocytes Abs 0.6 x 10'3/microL 0.1 - 0.6 03/11/2014 [facility] HEMATOLOGY Neutrophils % 77 % 44 - 76 03/11/2014 [facility] HEMATOLOGY Hct 32 % 35 - 47 03/11/2014 LOW [facility] HEMATOLOGY Hgb 11.0 g/dL 12.0 - 16.0 03/11/2014 LOW [facility] HEMATOLOGY RBC 3.69 x10'6/microL 3.90 - 5.60 03/11/2014 LOW [facility] HEMATOLOGY MCV 87 fL 81 - 99 03/11/2014 [facility] HEMATOLOGY MPV 9.1 fL 6.5 - 10.4 03/11/2014 [facility] HEMATOLOGY Platelet 164 x 10'3/microL 140 - 400 03/11/2014 [facility] HEMATOLOGY RDW 14.3 % <=14.5 03/11/2014 [facility] HEMATOLOGY MCHC 34 g/dL 32 - 36 03/11/2014 [facility] HEMATOLOGY WBC 9.9 x 10'3/microL 4.0 - 11.0 03/11/2014 [facility] HEMATOLOGY MCH 30 pg 27 - 34 03/11/2014 [facility] Renal Funct Index (GFR)Glomerular Fi ltration Rate 78.8 mL/min/1.73 m2 03/11/2014 NA GFR calculated based on MDR D abbreviated formula.

Age(years) Average GFR
20-29 116 ml/min/1.73 m2
30-39 107 ml/min/1.73 m2
40-49 99 ml/min/1.73 m2
50-59 93 ml/min/1.73 m2
60-69 85 ml/min/1.73 m2
70+ 75 ml/min/1.73 m2

Acceptable GFR =>60 ml/min/1.73 m2
Chronic Kidney Disease <60 ml/min/1.73 m2
Kidney Failure <15 ml/min/1.73 m2
[facility] BMP Sodium 137 mmol/L 136 - 145 03/11/2014 N [facility] BMP Potassium 4.7 mmol/L 3.5 - 5.1 03/11/2014 N [facility] BMP Chloride 103 mmol/L 98 - 107 03/11/2014 N [facility] BMP CO2 26 mmol/L 22 - 29 03/11/2014 N [facility] BMP AGAP 8 mmol/L 3 - 19 03/11/2014 N [facility] BMP Glucose 135 mg/dL 70 - 100 03/11/2014 H [facility] BMP BUN 14 mg/dL 8 - 20 03/11/2014 N [facility] BMP Creatinine 0.8 mg/dL 0.7 - 1.2 03/11/2014 N The presence of ketone bodies can cause artificially high results in serum, plasma and urine.
[facility] BMP Calcium 8.9 mg/dL 8.6 - 10.2 03/11/2014 N [facility] Magnesium Magnesium 1.9 mg/dL 1.6 - 2.6 03/11/2014 N Critical High for OB Patients >=7.0 mg/d l.
[facility] Auto Diff Neutrophils 77 % 44 - 76 03/11/2014 H [facility] Auto Diff Lymphocytes % 16 % 13 - 43 03/11/2014 N [facility] Auto Diff Monocytes % 6 % 0 - 13 03/11/2014 N [facility] Auto Diff Eosinophils % 1 % 0 - 7 03/11/2014 N [facility] Auto Diff Basophils % 0 % 0 - 3 03/11/2014 N [facility] Auto Diff Neutro Absolute 7.6 x1 0'3/microL 1.4 - 7.2 03/11/2014 H [facility] Auto Diff Lymph Absolute 1.6 x1 0'3/microL 1.2 - 3.4 03/11/2014 N [facility] [place] Auto Diff [place] Absolute 0.6 x1 0'3/microL 0.1 - 0.6 03/11/2014 N [facility] [place] Auto Diff Eos Absolute 0.1 x1 0'3/microL 0.0 - 0.5 03/11/2014 [facility] Basophil Absolute 0.0 x1 0'3/microL 0.0 - 0.2 03/11/2014 N [facility] [place] CBC/Diff WBC 9.9 x10'3/micro L 4.0 - 11.0 03/11/2014 [facility]/Diff RBC 3.69 x10'6/micr oL 3.90 - 5.60 03/11/2014 [facility] CBC/Diff Hgb 11.0 g/dL 12.0 - 16.0 03/11/2014 [facility] CBC/Diff Hct 32 % 35 - 47 03/11/2014 [facility] CBC/Diff MCV 87 fL 81 - 99 03/11/2014 [facility] CBC/Diff MCH 30 pg 27 - 34 03/11/2014 [facility] CBC/Diff MCHC 34 g/dL 32 - 36 03/11/2014 N [facility] CBC/Diff RDW 14.3 % - <=14.5 03/11/2014 N [facility] CBC/Diff Platelet 164 x10 '3/microL 140 - 400 03/11/2014 N [facility] CBC/Diff MPV 9.1 fL 6.5 - 10.4 03/11/2014 [facility] HEMATOLOGY MCHC 33 g/dL 32 - 36 03/10/2014 [facility] HEMATOLOGY MCH 29 pg 27 - 34 03[facility]10/[facility] HEM[facility] RDW 14.4 % <=14.5 03/10/2014 [facility] HEMATOLOGY Hgb 11.4 g/dL 12.0 - 16.0 03/10/2014 LOW [facility] HEMATOLOGY MCV 87 fL 81 - 99 03/10/2014 [facility] HEMATOLOGY Hct 35 % 35 - 47 03/10/2014 [facility] HEMATOLOGY MPV 9.1 fL 6.5 - 10.4 03/10/2014 [facility] HEMATOLOGY Platelet 190 x 10'3/microL 140 - 400 03/10/2014 [facility] HEMATOLOGY RBC 3.99 x10'6/microL 3.90 - 5.60 03/10/2014 [facility] HEMATOLOGY WBC 9.9 x 10'3/microL 4.0 - 11.0 03/10/2014 [facility] HEMATOLOGY Lymphocytes Abs 2.0 x 10'3/microL 1.2 - 3.4 03/10/2014 [facility] HEMATOLOGY Monocytes Abs 0.7 x 10'3/microL 0.1 - 0.6 03/10/2014 [facility] HEMATOLOGY Eosinophils % 2 % 0 - 7 03/10/2014 [facility] HEMATOLOGY Neutrophils Abs 6.9 x 10'3/microL 1.4 - 7.2 03/10/2014 [facility] HEMATOLOGY Basophils % 1 % 0 - 3 03/10/2014 [facility] HEMATOLOGY Basophils Abs 0.1 x 10'3/microL 0.0 - 0.2 03/10/2014 [facility] HEMATOLOGY Eosinophils Abs 0.2 x 10'3/microL 0.0 - 0.5 03/10/2014 [facility] HEMATOLOGY Monocytes % 7 % 0 - 13 03/10/2014 [facility] HEMATOLOGY Lymphocytes % 21 % 13 - 43 03/10/2014 [facility] HEMATOLOGY Neutrophils % 69 % 44 - 76 03/10/2014 [facility] Auto Diff Neutrophils 69 % 44 - 76 03/10/2014 N [facility] Auto Diff Lymphocytes % 21 % 13 - 43 03/10/2014 N [facility] Auto Diff Monocytes % 7 % 0 - 13 03/10/2014 N [facility] Auto Diff Eosinophils % 2 % 0 - 7 03/10/2014 N [facility] [place] Auto Diff Basophils % 1 % 0 - 3 03/10/2014 N [facility] [place] Auto Diff Neutro Absolute 6.9 x1 0'3/microL 1.4 - 7.2 03/10/2014 N [facility] [place] Auto Diff Lymph Absolute 2.0 x1 0'3/microL 1.2 - 3.4 03/10/2014 N [facility] [place] Auto Diff [place] Absolute 0.7 x1 0'3/microL 0.1 - 0.6 03/10/2014 H [facility] [place] Auto Diff Eos Absolute 0.2 x1 0'3/microL 0.0 - 0.5 03/10/2014 N [facility] [place] Auto Diff Basophil Absolute 0.1 x1 0'3/microL 0.0 - 0.2 03/10/2014 N [facility] [place] CBC/Diff WBC 9.9 x10'3/micro L 4.0 - 11.0 03/10/2014 [facility]/Diff RBC 3.99 x10'6/micr oL 3.90 - 5.60 03/10/2014 [facility] CBC/Diff Hgb 11.4 g/dL 12.0 - 16.0 03/10/2014 [facility]/Diff Hct 35 % 35 - 47 03/10/2014 [facility] CBC/Diff MCV 87 fL 81 - 99 03/10/2014 [facility] CBC/Diff MCH 29 pg 27 - 34 03/10/2014 N [facility] [place] CBC/Diff MCHC 33 g/dL 32 - 36 03/10/2014 [facility] CBC/Diff RDW 14.4 % - <=14.5 03/10/2014 N [facility] [place] CBC/Diff Platelet 190 x10 '3/microL 140 - 400 03/10/2014 N [facility] [place] CBC/Diff MPV 9.1 fL 6.5 - 10.4 03/10/2014 [facility] CHEMISTRY Calcium 8.9 mg/dL 8.6 - 10.2 03/10/2014 [facility] CHEMISTRY Creatinine 0.8 mg/dL 0.7 - 1.2 03/10/2014 <sup>3</sup>Interpretive Data: The prese nce of ketone bodies can cause artificially high results in serum, plasma and urine. [facility] CHEMISTRY Glucose 118 mg/dL 70 - 100 03/10/2014 [facility] er CHEMISTRY AGAP 8 mmol/L 3 - 19 03/10/2014 [facility] CHEMISTRY BUN 13 mg/dL 8 - 20 03/10/2014 [facility] CHEMISTRY CO2 27 mmol/L 22 - 29 03/10/2014 [facility] CHEMISTRY Chloride 104 mmol/L 98 - 107 03/10/2014 [facility] CHEMISTRY Potassium 4.4 mmol/L 3.5 - 5.1 03/10/2014 [facility] CHEMISTRY Sodium 139 mmol/L 136 - 145 03/10/2014 [facility] CHEMISTRY GFR (MDRD) 71.1 m L/min/1.73 m2 03/10/2014 <sup>5</sup>Result Comment: GFR calculat ed based on MDRD abbreviated formula.

Age(years) Average GFR
20-29 116 ml/min/1.73 m2
30-39 107 ml/min/1.73 m2
40-49 99 ml/min/1.73 m2
50-59 93 ml/min/1.73 m2
60-69 85 ml/min/1.73 m2
70+ 75 ml/min/1.73 m2

Acceptable GFR =>60 ml/min/1.73 m2
Chronic Kidney Disease <60 ml/min/1.73 m2
Kidney Failure <15 ml/min/1.73 m2 [facility] CHEMISTRY Est CrCL (CG) 67.2 m L/min 03/10/2014 <sup>7</sup>Result Comment: Estimated Cr eatinine Clearance calculated based on the Cockcroft-Gault formula. [facility] HEMATOLOGY MPV 9.0 fL 6.5 - 10.4 03/10/2014 [facility] HEMATOLOGY RDW 14.1 % <=14.5 03/10/2014 [facility] HEMATOLOGY Platelet 199 x 10'3/microL 140 - 400 03/10/2014 [facility] HEMATOLOGY RBC 4.24 x10'6/microL 3.90 - 5.60 03/10/2014 [facility] HEMATOLOGY Hct 37 % 35 - 47 03/10/2014 [facility] HEMATOLOGY WBC 10.4 x10'3/microL 4.0 - 11.0 03/10/2014 [facility] HEMATOLOGY Hgb 12.4 g/dL 12.0 - 16.0 03/10/2014 [facility] HEMATOLOGY MCHC 34 g/dL 32 - 36 03/10/2014 [facility] HEMATOLOGY MCV 87 fL 81 - 99 03/10/2014 [facility] HEMATOLOGY MCH 29 pg 27 - 34 03/10/2014 [facility] HEMATOLOGY Basophils % 0 % 0 - 3 03/10/2014 [facility] HEMATOLOGY Neutrophils Abs 7.1 x 10'3/microL 1.4 - 7.2 03/10/2014 [facility] HEMATOLOGY Lymphocytes Abs 2.4 x 10'3/microL 1.2 - 3.4 03/10/2014 [facility] HEMATOLOGY Basophils Abs 0.0 x 10'3/microL 0.0 - 0.2 03/10/2014 [facility] HEMATOLOGY Eosinophils Abs 0.1 x 10'3/microL 0.0 - 0.5 03/10/2014 [facility] HEMATOLOGY Monocytes Abs 0.7 x 10'3/microL 0.1 - 0.6 03/10/2014 [facility] HEMATOLOGY Neutrophils % 69 % 44 - 76 03/10/2014 [facility] HEMATOLOGY Lymphocytes % 24 % 13 - 43 03/10/2014 [facility] HEMATOLOGY Eosinophils % 1 % 0 - 7 03/10/2014 [facility] HEMATOLOGY Monocytes % 7 % 0 - 13 03/10/2014 [facility] Renal Funct Index (GFR)Glomerular Fi ltration Rate 71.1 mL/min/1.73 m2 03/10/2014 NA GFR calculated based on MDR D abbreviated formula.

Age(years) Average GFR
20-29 116 ml/min/1.73 m2
30-39 107 ml/min/1.73 m2
40-49 99 ml/min/1.73 m2
50-59 93 ml/min/1.73 m2
60-69 85 ml/min/1.73 m2
70+ 75 ml/min/1.73 m2

Acceptable GFR =>60 ml/min/1.73 m2
Chronic Kidney Disease <60 ml/min/1.73 m2
Kidney Failure <15 ml/min/1.73 m2
[facility] BMP Sodium 139 mmol/L 136 - 145 03/10/2014 N [facility] BMP Potassium 4.4 mmol/L 3.5 - 5.1 03/10/2014 N [facility] BMP Chloride 104 mmol/L 98 - 107 03/10/2014 N [facility] BMP CO2 27 mmol/L 22 - 29 03/10/2014 N [facility] BMP AGAP 8 mmol/L 3 - 19 03/10/2014 N [facility] BMP Glucose 118 mg/dL 70 - 100 03/10/2014 H [facility] BMP BUN 13 mg/dL 8 - 20 03/10/2014 N [facility] BMP Creatinine 0.8 mg/dL 0.7 - 1.2 03/10/2014 N The presence of ketone bodies can cause artificially high results in serum, plasma and urine.
[facility] BMP Calcium 8.9 mg/dL 8.6 - 10.2 03/10/2014 N [facility] Auto Diff Neutrophils 69 % 44 - 76 03/10/2014 N [facility] Auto Diff Lymphocytes % 24 % 13 - 43 03/10/2014 N [facility] [place] Auto Diff Monocytes % 7 % 0 - 13 03/10/2014 N [facility] [place] Auto Diff Eosinophils % 1 % 0 - 7 03/10/2014 N [facility] [place] Auto Diff Basophils % 0 % 0 - 3 03/10/2014 N [facility] [place] Auto Diff Neutro Absolute 7.1 x1 0'3/microL 1.4 - 7.2 03/10/2014 N [facility] [place] Auto Diff Lymph Absolute 2.4 x1 0'3/microL 1.2 - 3.4 03/10/2014 N [facility] [place] Auto Diff [place] Absolute 0.7 x1 0'3/microL 0.1 - 0.6 03/10/2014 H [facility] [place] Auto Diff Eos Absolute 0.1 x1 0'3/microL 0.0 - 0.5 03/10/2014 N [facility] [place] Auto Diff Basophil Absolute 0.0 x1 0'3/microL 0.0 - 0.2 03/10/2014 N [facility] [place] CBC/Diff WBC 10.4 x10'3/micr oL 4.0 - 11.0 03/10/2014 N [facility] [place] CBC/Diff RBC 4.24 x10'6/micr oL 3.90 - 5.60 03/10/2014 N [facility] [place] CBC/Diff Hgb 12.4 g/dL 12.0 - 16.0 03/10/2014 N [facility] [place] CBC/Diff Hct 37 % 35 - 47 03/10/2014 N [facility] [place] CBC/Diff MCV 87 fL 81 - 99 03/10/2014 N [facility] [place] CBC/Diff MCH 29 pg 27 - 34 03/10/2014 N [facility] [place] CBC/Diff MCHC 34 g/dL 32 - 36 03/10/2014 N [facility] [place] CBC/Diff RDW 14.1 % - <=14.5 03/10/2014 N [facility] [place] CBC/Diff Platelet 199 x10 '3/microL 140 - 400 03/10/2014 N [facility] [place] CBC/Diff MPV 9.0 fL 6.5 - 10.4 03/10/2014 N [facility] Blood Gases Device Room Air 03/09/2014 <sup>1</sup>Result Comment: Meter: [id number]: [id number] BOLA HOANG [facility] Blood Gases FIO2 (POC) 21.00 % 03/09/2014 [facility] Blood Gases Drawn by RC < br/>*NA*
(03/09/2014 07:06:00) <sup> </sup> 03/09/2014 [facility] Blood Gases Site of Collection R Ra dial 03/09/2014 [facility] Blood Gases BE (POC) 1 mmol/L -2-3 - 2 03/09/2014 [facility] Blood Gases SO2 IStat >99 % 95 - 98 03/09/2014 [facility] er Blood Gases TCO2 (POC) 27 m mol/L 19 - 24 03/09/2014 [facility] er Blood Gases HCO3 (POC) 25.4 mmol/L 18.0 - 23.0 03/09/2014 [facility] Blood Gases Doni Test Pos 03/09/2014 [facility] Blood Gases Sample Type Manda rial
*NA*
(03/09/2014 07:06:00) <sup> </sup> 03/09/2014 [facility] Blood Gases pH (POC) 7.433 7.350 - 7.450 03/09/2014 [facility] Blood Gases pCO2 (POC) 38.0 mm[Hg] 35.0 - 45.0 03/09/2014 [facility] Blood Gases pO2 (POC) 216 mm[Hg] 83 - 108 03/09/2014 [facility] er BLOOD BANK ABORh RR Interp O POS 03/09/2014 [facility] BLOOD BANK ABSC Gel Interp Negat cooper
(03/09/2014 06:18:00) <sup> </sup> 03/09/2014 [facility] BLOOD BANK ABORh Interp O POS 03/09/2014 [facility] CHEMISTRY Potassium 3.0 mmol/L 3.5 - 5.1 03/09/2014 LOW [facility] ABSC 2 Cell Gel ABSC Gel Interp Neg 03/09/2014 N [facility] [place] ABORh Recheck w Reverse ABORh RR Int erp O POS 03/09/2014 [facility] K Potassium 3.0 mmol/L 3.5 - 5.1 03/09/2014 L [facility] [place] ABORh ABORh O POS 03/09/2014 NA [facility] [place] ISTAT SMM pH (POC) 7.433 7.350 - 7.450 03/09/2014 [facility] ISTAT SMM pCO2 (POC) 38.0 mmHg 35.0 - 45.0 03/09/2014 [facility] ISTAT SMM pO2 (POC) 216 mmHg 83 - 108 03/09/2014 [facility] ISTAT SMM TCO2 (POC) 27 mmol/L 19 - 24 03/09/2014 H [facility] [place] ISTAT SMM HCO3 (POC) 25.4 m mol/L 18.0 - 23.0 03/09/2014 [facility] ISTAT SMM BE (POC) 1 mmol/L -2 - 3 03/09/2014 [facility] ISTAT SMM SO2 IStat >99 % 95 - 98 03/09/2014 [facility] ISTAT SMM Doni Test Pos 03/09/2014 NA [facility] [place] ISTAT SMM Sample Type ART 03/09/2014 NA [facility] [place] ISTAT SMM Site of Collection R Radi al 03/09/2014 NA [facility] [place] [facility] I[employer] SMM Device Room Air 03/09/2014 NA Meter: [id number] Business Development: [id number] BOLA HOANG
[facility] [place] [facility] I[facility] SMM FIO2 (POC) 21.00 % 03/09/2014 NA [facility] [place] [facility] I[facility] SMM Drawn by RC 03/09/2014 NA [facility] Pathology Reports Report Value Date Source Surgical Pathology Final Report Customer Service Supervisor Customer Service Supervisor: PARRISH Pathologist group, [facility] PATH[facility] REPORT [address] [address] Surgical Pathology Report [id number] FINAL DIAGNOSIS: A. Left kidney, additional inferior surgical margin resection: - No residual tumor identified. B. 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 [facility] [place]: Coreviewed by Dr. Abdon Haddad and Dr. Byers. Specimen(s) Received: A. Anterior inferior margin of tumor B. Left renal tumor Clinical Information: Renal cell carcinoma Gross Description: The specimen is identified by the patient's name and is labeled "anterior inferior margin of tumor". Received in formalin is a 1.9 x 1.5 x 0.4 cm, yellow, lobulated fragment of adipose tissue which is inked black. The specimen is sectioned and entirely submitted in one cassette as A. The specimen is identified by the patient's name and is labeled "left renal tumor". Received in formalin is a seven gram, 4.4 x 2.7 x 1.0 cm wedge of kidney, which is inked black at the resection margin. Sectioning reveals a 1.4 x 0.6 x 0.7 cm, light yellow-peñaloza, cystic nodule. The nodule abuts the black-inked margin. The specimen is entirely submitted in six cassettes as B1-B6. PAB/03/09/14 [facility] Microscopic Description: Microscopic examination is performed and supports the above diagnosis. Immunohistochemical stains with appropriately reacting controls are performed on block B4 with the following results: CK7 NEGATIVE The pattern of staining is consistent with an oncotyoma. JAIDEN ZELAYA [id number] 03/09/2014 [facility] Diagnostic Reports Report Value Date Source XR Chest 2V [address] [address] Radiology Reports CPT Codes; 07620 CDM Codes: 5899389 (XR Chest 2V) Reason for exam: KIDNEY CA Report Examination: Chest 2 view. DATE: January 23, 2014. HISTORY: Renal cell carcinoma. Staging. FINDINGS: Comparison is made to a prior examination dated September 10, 2012. Frontal and lateral views of the chest show no focal pneumonic consolidation, pleural effusion, or pneumothorax. Heart size and mediastinal contours are normal. Pulmonary vascularity is normal. Cholecystectomy clips are seen in the right upper quadrant. IMPRESSION: 1. No acute cardiopulmonary abnormality. Dictating Leonarda Iraheta Dictated 01/23/2014 12:58 Signing Leonarda Iraheta Location [id number] Final Dictated by: LEONARDA CLANCY MD Signed by: LEONARDA CLANCY MD 01/23/14 12:59 Customer Operations Intern: KAMARI 01/23/14 12:59 JAIDEN ZELAYA [id number] 01/23/2014 [facility] US Retroperitoneal Complete [facility] [address] [place] [address] Radiology Reports CPT Codes; 20323 CDM Codes: 3956735 (US Exam) Reason for exam: KIDNEY CANCER Report RENAL/RETROPERITONEAL ULTRASOUND CLINICAL DATA: Enhancing 1.7 cm mass involving the lower pole the left kidney on previous CT. FINDINGS: Report of the previous CT from an outside facility dated 06/14/2012 was reviewed, images are not available for comparison. The right kidney measures 9.9 cm, and is normal in appearance without definite parenchymal lesion seen. No hydronephrosis or echogenic renal stone. The left kidney measures 12.7 cm. There is a subtle hypoechoic mass arising from the lower pole the left kidney measuring up to 1.6 x 1.9 cm, corresponding with the reported lesion on previous ultrasound. No hydronephrosis or echogenic renal stone. Urinary bladder is incompletely distended, with no gross abnormalities. No free fluid. Abdominal aorta measures 1.4 cm in maximal transverse diameter. IVC is patent. IMPRESSION: Solid hypoechoic mass arising from normal pole left kidney measuring 1.9 cm, corresponding with the renal mass described on previous CT. Dictating Mo Prado Dictated 09/10/2012 Signing Mo Prado Final Dictated by: MO CAMPBELL MD Signed by: MO CAMPBELL MD 09/10/12 14:31 Customer Operations Intern: RENATO 09/10/12 14:25 JAIDEN ZELAYA [id number] 09/10/2012 [facility] XR Chest 2V [facility] [address] [place] [address] Radiology Reports CPT Codes; 15236 CDM Codes: 9214192 (XR Chest 2V) Reason for exam: KIDNEY CANCER/RENAL MASS Report CHEST, 2 views CLINICAL DATA: Renal mass. FINDINGS: The heart is borderline prominent. The mediastinum is unremarkable. The brittney show no obvious abnormalities. No consolidations are present. No pleural effusion or pneumothorax is detected. IMPRESSION: No acute cardiopulmonary process detected. Borderline heart size. Dictating Brian Reeves Dictated 09/10/2012 Signing Brian Reeves Final Dictated by: BRIAN WILDER MD Signed by: BRIAN WILDER MD 09/10/12 13:41 Customer Operations Intern: ROSA 09/10/12 13:38 JAIDEN ZELAYA [id number] 09/10/2012 [facility] Consultation Notes Results Value Date Source Consultation Report Consultation DATE OF ADMISSION 03/09/2014 DATE OF CONSULTATION 03/09/2014 DATE OF 1955 HISTORY OF PRESENT ILLNESS This is a 58-year-old female with multiple medical problems. She was admitted for left nephrectomy for kidney cancer. The stage was T1A. The surgery itself seems uneventful. Currently, she still has some pain, but it is better controlled with TOTER pump when it was changed from morphine to Dilaudid when I interviewed the patient. No fever or chills. Still has some nausea. PAST MEDICAL HISTORY 1. Hypertension. 2. COPD/asthma, on nocturnal oxygen 3. Coronary artery disease status post heart attack. However, patient states she has never had a stent. 4. TIA. 5. Gastroesophageal reflux disease. 6. Back pain. 7. Left kidney cancer as mentioned abov e. PAST SURGICAL HISTORY 1. Status post back surgery. 2. Status-post appendectomy. 3. Status-post hysterectomy. 4. Status post tonsillectomy. 3. Cardiac catheterization and she was told that the coronary arteries are not severe, no stent was placed. CURRENT MEDICATIONS Reviewed. ALLERGIES ADHESIVE TAPE, PENICILLIN, SULFA AND TELEPAQUE. FAMILY HISTORY Father of a heart attack at age of 56. SOCIAL HISTORY Denies tobacco smoking, alcohol use or drug abuse. REVIEW OF SYSTEMS Positive for back pain, positive left flank after surgery. On home oxygen. The remainder of 14-point review of system is negative. PHYSICAL EXAMINATION VITAL SIGNS: Blood pressure post-surgically 152/89, heart rate 82, respirations 14 and she is afebrile. Saturation 95% on 2 L. GENERAL: The patient appears older than her stated age. She is not in acute distress, lying in bed comfortably. HEENT: Head is normocephalic, atraumatic. Pupils equal, round, and reactive. No pallor or jaundice. EOMI. Inspection of ears, nose reveals no lesions. Moist oral mucosa. LUNGS: Clear to auscultation bilaterally, but diminished breath sounds though. CARDIOVASCULAR: Normal S1, S2 without murmurs. ABDOMEN: Slightly obese, had a draining tube in place down the left side, tenderness but not severe. Diminished bowel sounds. EXTREMITIES: No pitting edema, cyanosis or clubbing. NEUROLOGIC: Cranial nerves intact. Sensation intact to touch. She moves all her limbs. SKIN: No rash or palpable lesions. LYMPHATIC: There are no palpable lymph nodes in her cervical area. PSYCHIATRIC: The patient is awake, alert and oriented x3. LABORATORY DATA Only available laboratory; potassium 3. Arterial blood gases pH 7.433 pCO2 38, pO2 216. This is on room air. DIAGNOSTIC IMPRESSION 1. Left kidney cancer, early stage, sta tus post partial nephrectomy. 2. Hypertension. 3. COPD/asthma, on nocturnal home oxyge n 4. History of coronary artery disease a nd heart attack. 5. Transient ischemic attack. 6. Gastroesophageal reflux disease. 7. Chronic back pain. RECOMMENDATIONS 1. The patient will continue medication by dredge lever operator for her post-surgical care. 2. Monitor H and H for postsurgical ane diana. 3. Currently patient on clear liquid on ly. Resume most of her medications. 4. She is currently on TOTER pump with Di laudid for pain control. 5. Deep venous thrombosis prophylaxis. 6. PT, OT evaluation. Further recommendations based on her clinical course. Thank you very much for the consultation. *END OF REPORT* HL/cm C.T. C.T. E: 03/10/2014 08:41 C.T./ Conf# [id number] Doc#: [id number] cc: 03/10/2014 [facility] Consultation Report Consultation Report Consult Note [facility] Patient: JAIDEN ZELAYA Age: 58 years Sex: Female : 1955 Associated Diagnoses: None Author: ZAY PARSONS MD Consultation Information Subjective:: pt was seen and examined. Full Cons not will be dictated. . [Electronically Signed By:] ZAY LIU MD On, 03/09/2014 06:38 PM 03/09/2014 [facility] Operative Report Operative Report Left Partial Davini Nephrectomy Patient: JAIDEN ZELAYA Age: 58 years Sex: Female : 1955 Associated Diagnoses: None Author: DIO REINOSO MD T Postoperative Information Preoperative Diagnosis: Left Renal Mass. Postoperative Diagnosis: Same. Performed by: IDO REINOSO MD T. Production Department Supervisor: SUSAN THAO MD Findings: No evidence of lymph node enlargement or involvement.. Specimens Removed: Kidney mass. Estimated Blood Loss: 250 ml. Complications: None. Notes: Operation performed: Laparoscopic DaVinci Assisted Right Partial Nephrectomy Ultrasound guidance Intraop, Details: , In the usual manner, patient underwent general intubation. Patient then had a ellison catheter placed sterilely. Patient was then placed in the lateral decubitus position with axilla roll and arm support for the downside arm and arm board for the left arm. The downside leg was bent and the upside leg was straight with pillow bracing in between. The marte bag was deployed and the patient was taped into place with security straps as needed. Patient was then prepped and draped in the usual sterile manner., An incision was then made in the left lower quadrant. A Veress needle was placed and the abdomin was insuffulated with CO2. A 12mm trocor was placed using the nonbladed obturator. The abdomin was insuffulated to a pressure of 15 and the scope was introduced. Under direct vision the 8mm ports were place to triangulate the area of the kidney. Any adhesions were taken down sharply with laparoscopic santo as needed. The assistant drafter ports were place for suction and manipulation using 12 mm ports x 2., The colon was then reflected off of gerota's fascia and the ueter was identified. Following the ureter we identified renal vein and artery. This was carefully disected free. The kidney was freed up posteriorly and superiorly and eventually laterally. Gerota's fasica was cleaned off of the tumor. Intraoperative US was done which confirmed the tumor and edges. Some fat was sent for margins. 25 GM of mannitol was infused. ICGREEN was then infused. The kidney lit up and the tumor light up. The laparoscopic bulldogs were placed across the hilum x 2. The tumor which had previously been scored was then excised with cautery and sharply. The specimen was then laced into a specimen bag. The base of the defect was then closed with a 0 running vicryl. The defect was then closed with 0 vicyrl through and through with clips and lapora-ties. The bulldogs were released and there was seen to be excellent hemostasis. Aki-seal was placed in the wound and the hilum. Geroto's fascia was closed over the wound. The pressure was released and there was seen to be excellent hemostasis. The ports were removed under direct vision and 19F drain was placed and sutured with 3-0 silk. The specimen bag was removed througha 12 mm port site. The skin was then closed with dermabond equivalent. 0.5 % marcaine was infiltrated. All needle and sponge and instrument counts correct Operative Report times two. Patient was then taken to the recovery room in good and stable condition.. [Electronically Signed By:] DIO DEAN MD On, 03/09/2014 10:09 AM [Electronically Signed by:] DIO REINOSO MD, MD On, 03/09/14 10:11 AM 03/09/2014 [facility] Discharge Summaries Results Value Date Source Discharge Summary Discharge Summary Discharge Summary [facility] Patient: JAIDEN ZELAYA Age: 58 years Sex: Female : 1955 Associated Diagnoses: None Author: RAMON PAGE Discharge Information Discharge Instructions: . Discharge Instructions: Discharge To: Home Diet: Other: regular diet as tolerated Activity: No driving, No Heavy Lifting, Other: no lifting over 10 lb Patient Condition at Discharge: Stable Symptoms to report: Pain uncontrolled by medications, Fever > 100, Nausea/Vomiting, Redness, oozing, swelling, Odor/drainage at injury/incision site, Other: unable to urinate or passing large clots Post-hospital equipment/treatments: None Pain Management: Pain intervention in place Discharge Diagnosis: Renal mass, benign. Discharge Meds: , Discharge Medication List Medication acetaminophen-oxyCODONE(Percocet 7.5/325 oral tablet)(acetaminophen-oxyCODONE) 1 TAB By Mouth Every 4 hours PRN pain albuterol(ProAir HFA 90 mcg/inh inhalation aerosol)(albuterol) 1 Puff Inhalation 4 TIMES A DAY albuterol-ipratropium(DuoNeb 0.5 mg-2.5 mg/3 mL inhalation solution)(albuterol-ipratropium) 3 mL NEB inhalation 4 TIMES A DAY PRN Air Hunger amLODIPine(Norvasc 10 mg oral tablet)(amLODIPine) 10 mg 1 TAB By Mouth DAILY atorvastatin(Lipitor 20 mg oral tablet)(atorvastatin) 20 mg 1 TAB By Mouth DAILY benazepril(Lotensin 40 mg oral tablet)(benazepril) 40 mg 1 TAB By Mouth 2 TIMES A DAY codeine-promethazine(Phenergan with Codeine)(codeine-promethazine) 5 mL By Mouth Every 4 hours PRN Cough docusate(Colace 100 mg oral capsule)(docusate) 100 mg 1 CAP By Mouth 2 TIMES A DAY PRN constipation hydrochlorothiazide 25 mg By Mouth DAILY isosorbide mononitrate(Imdur 60 mg oral tablet, extended release)(isosorbide mononitrate) Discharge Summary 60 mg 1 TAB By Mouth 2 TIMES A DAY lansoprazole(Prevacid 30 mg oral delayed release capsule)(lansoprazole) 30 mg 1 CAP By Mouth DAILY montelukast(Singulair 10 mg oral tablet)(montelukast) 10 mg 1 TAB By Mouth EVERY EVENING nitroglycerin(Nitrostat 0.4 mg sublingual tablet)(nitroglycerin) 0.4 mg 1 TAB Under the Tongue Every 5 minutes PRN Chest Pain OLANZapine(ZyPREXA 10 mg oral tablet)(OLANZapine) 10 mg 1 TAB By Mouth AT BEDTIME PARoxetine(Paxil 30 mg oral tablet)(PARoxetine) 30 mg 1 TAB By Mouth DAILY potassium chloride(K-Dur)(potassium chloride) 40 mEq By Mouth 2 TIMES A DAY zolpidem(Ambien 5 mg oral tablet)(zolpidem) 5 mg 1 TAB By Mouth AT BEDTIME PRN sleep/insomnia restart ASA and Plavix in one week. [Electronically Signed By:] RAMON FOSS On, 03/12/2014 10:58 AM [Electronically Signed by:] DIO REINOSO MD, MD On, 03/13/14 07:07 AM 03/12/2014 [facility] History and Physicals No Data Provided for This Section Vital Signs Vital Sign Value Date Comments Source Respiratory Rate 20 br/min 03/12/2014 [facility] Pulse Equipment SPO2 (03/12/20 14 11:35:05) 03/12/2014 [facility] BP Location Arm, right (2013 11:35:05) 03/12/2014 [facility] Heart Rate 80 bpm 03/12/2014 [facility] Temperature 98.9 [degF] 03/12/2014 [facility] Temp Method Oral (03/12/2014 1 1:34:18) 03/12/2014 [facility] NIBP MAP 88 mm[Hg] 03/12/2014 [facility] Inet NIBP Diastolic 63 mm[Hg] 03/12/2014 [facility] Inet NIBP Systolic 161 mm[Hg] 03/12/2014 [facility] Vital Signs Status/Type Routin e Assessment (03/10/2014 15:08:00) 03/10/2014 [facility] NIBP MAP Calc 90 03/10/2014 [facility] Heart Rhythm Sinus/atrial rhyt hm (03/09/2014 11:00:00) 03/09/2014 [facility] Encounters Location Location Details Encounter Type Encounter Number Reason For Visit Attending Provider ADM Date DC Date Status Source 006 006 I [id number] DIO REINOSO MD 03/09/2014 03/12/2014 Active [facility] [place] [facility] 006 006 O [id number] DIO REINOSO MD 01/23/2014 01/23/2014 Active [facility] [place] [facility] ss[facility] 006 006 O [id number] DIO REINOSO MD 09/10/2012 09/10/2012 Active [facility] [place] [facility] Procedures No Data Provided for This Section Plan of Care No Data Provided for This Section Social History No Data Provided for This Section Assessment and Plan No Data Provided for This Section Family History No Data Provided for This Section Advance Directives No Data Provided for This Section Functional Status No Data Provided for This Section
--- OUTSIDE RECORDS SUMMARY | 2020-03-10 06:29 | XMS REPORT ---
Author Author Bambi CHU Organization [facility] Address [address] [place] [address] Care Team Providers Care Boom Pump Operator Name Role Phone ANGELITO CHU Unavailable PROBLEMS Type Condition ICD9-CM Code ZYR22-RG Code Onset Dates Condition S tatus SNOMED Code Problem HTN (hypertension), benign I10 Oct, Active 22176584 Problem Sleep apnea G47.30 Apr, Active 80179 006 Problem Asthma J45.909 Aug, Active 3135596 01 Problem Renal cell cancer C64.9 February, Active 63408553 Problem Thyroid mass E07.9 Apr, Active 2375 20138 Problem Hypokalemia E87.6 Dec, Active 08872 004 Problem Urinary, incontinence, stress female N39.3 February, Active 60594426 Problem Abnormal results of thyroid function studies R94.6 Active 942434072 Problem Hypertension I10 Active 6979303 3 Problem Major depressive disorder, recurrent episode, moderate F33.1 Active 81385093 Problem Essential hypertension I10 Active 59311891 Problem Atrial fibrillation with controlled ventricular respon se I48.91 February, Active 03686304 Problem 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 Sep, Active 64715419 Problem Oliguria R34 Oct, Active 9471407 9 Problem Fecal incontinence R15.9 February, Active 35440091 Problem DVT (deep venous thrombosis), right I82.401 Active 360337285 Problem Stroke-like symptoms R29.90 Aug, Active Problem Esophageal reflux K21.9 Active 24 2971510 Problem Continuous leakage of urine N39.45 Ac tive 576714403 Problem Panlobular emphysema J43.1 Active 6489970 Problem Cerebral ischemia I67.82 Active 28 3590982 Problem Cardiomegaly I51.7 Active 5502780 Problem Asthma exacerbation J45.901 Active 940935690 Problem PAD (peripheral artery disease) I73.9 15 Nov, 2017 Active 920895589 Problem Chronic obstructive pulmonary disease with (acute) exa cerbation J44.1 Active 4423511780067 Problem Atherosclerosis of [place] ronary artery of [place] heart without angina pectoris I25.10 19 Nov, 2015 Active 164063565629198 Problem Cerebrovascular accident (CVA) due to th rombosis of precerebral artery I63.00 16 Aug, 2017 Active 902764245 Problem Major depressive disorder, single episode, in full remissi on F32.5 Active 25630265 Problem Unspecified asthma with (acute) exacerbation J45.9 01 Active 426740566 Problem Sciatica, left side M54.32 Active 88993292 Problem Kidney stone on left side N20.0 Acti ve 33166329 ALLERGIES No Information ENCOUNTERS Encounter Location Date Diagnosis [address] [place] [address] Oct, Chronic obstructive pulmonar y disease with (acute) exacerbation J44.[address] [place] [address] Sep, Chronic obstructive pulmonar y disease with (acute) exacerbation J44.[address] [place] [address] Sep, [address] [place] [address] Sep, Asthma exacerbation J45.[address] [place] [address] Aug, Bronchitis J40 [address] [place] [address] Aug, [address] [place] [address] Aug, [address] [place] [address] Jul, Acute non-recurrent maxillar y sinusitis J01.00 and Encounter for immunization Z23 [facility] [address] [place] [address] Jul, [facility] [address] [place] [address] Jul, [facility] [address] [place] [address] Jun, [facility] [address] [place] [address] Jun, [facility] [address] [place] [address] Jun, Kidney stone on left side N2 0.0 [facility] [address] [place] [address] Jun, [facility] [address] [place] [address] May, Flank pain R10.9 [facility] [address] [place] [address] May, [facility] [address] [place] [address] May, Acute flank pain R10.9 [facility] [address] [place] [address] May, [facility] [address] [place] [address] May, Flank pain R10.9 and Sciatic a, left side M54.32 [facility] [address] [place] [address] May, [facility] [address] [place] [address] May, [facility] [address] [place] [address] May, [facility] [address] [place] [address] May, Acute cystitis without hemat uria N30.00 and Urinary urgency R39.15 [facility] [address] [place] [address] Apr, [facility] [address] [place] [address] Apr, [facility] [address] [place] [address] Apr, [facility] [address] [place] [address] Apr, [facility] [id number] [place] [address] Apr, Unspecified asthma with (acu te) exacerbation J45.901 and Chronic obstructive pulmonary disease with (acute) exacerbation J44.1 [facility] [address] [place] [address] Apr, [facility] [address] [place] [address] Apr, [facility] [address] [place] [address] Apr, Vision changes H53.9 and Stewart lobular emphysema J43.1 [facility] [address] [place] [address] Mar, [facility] [address] [place] [address] Mar, [facility] [address] [place] [address] Mar, [facility] [address] [place] [address] February, [facility] [address] [place] [address] February, HTN (hypertension), benign I 10 [facility] [address] [place] [address] February, HTN (hypertension), benign I 10 ; Sleep apnea G47.30 ; Thyroid mass E07.9 and Atrial fibrillation with controlled ventricular response I48.91 [facility] [address] [place] [address] February, [facility] [address] [place] [address] February, [facility] [address] [place] [address] Jan, [facility] [address] [place] [address] Jan, [facility] [address] [place] [address] Dec, [facility] [address] [place] [address] Dec, Asthma exacerbation J45.901 [facility] [address] [place] [address] Dec, COPD exacerbation J44.1 [facility] [address] [place] [address] Nov, [facility] [address] [place] [address] Nov, Hypertension I10 [facility] [address] [place] [address] 14 Nov, 2018 Hypertension I10 ; Major dep ressive disorder F32.9 ; Esophageal reflux K21.9 ; Abnormal results of thyroid function studies R94.6 ; Panlobular emphysema J43.1 and Continuous leakage of urine N39.45 [facility] [address] [place] [address] 06 Nov, 2018 [facility] [address] [id number] [place] [address] Oct, [facility] [address] [id number] [place] [address] Oct, [facility] [address] [id number] [place] [address] Oct, [facility] [address] [id number] [place] [address] Sep, IMMUNIZATIONS No Known Immunizations SOCIAL HISTORY Never Assessed REASON FOR VISIT call back PLAN OF CARE VITAL SIGNS MEDICATIONS Unknown Medications RESULTS No Results PROCEDURES No Known procedures INSTRUCTIONS MEDICATIONS ADMINISTERED No Known Medications MEDICAL [...] Medical History Abnormal results of thyroid function daniel dies Medical History DVT (deep venous thrombosis), right Surgical History Colonoscopy 04/12/15, 03/22/16 Surgical History Stent Placement Surgical History Hysterectomy Surgical History Appendectomy Surgical History Tonsilectomy Hospitalization History COPD
--- OUTSIDE RECORDS SUMMARY | 2020-03-10 06:31 | XMS REPORT | Continuity of Care Document ---
Demographics x Preferred Language Unknown Marital Status Unknown Cheondoism Affiliation Unknown Race Unknown Ethnic Group Unknown Author Organization Unknown Address Unknown Phone Unavailable Allergies Active Description Code Type Severity Reaction Onset Reported/Identified Relationship to Patient Clinical Status Yes adhesive tape [id number] Carlos g Allergy Unknown N/A 03/12/2017 Yes Penicillins [id number] Drug Aller gy Unknown N/A 03/12/2017 Yes Sulfa (Sulfonamide Antibiotics) [id number] Drug Allergy Unknown N/A 017 Yes adhesive tape [id number] Carlos g Allergy Mild REDNESS 03/04/2020 Yes Penicillins [id number] Drug Aller gy Mild RASH/HIVES 03/04/2020 Yes Sulfa (Sulfonamide Antibiotics) [id number] 0491 Drug Allergy Mild HIVES/RASH 03/04/2020 Medications There is no data. Problems Date Dx Coded Attending Type Code Diagnosis Diagnosed By 09/27/1546 LENNY REED MD Ot Z01.8 18 ENCOUNTER FOR OTHER PREPROCEDURAL EXAMIN 09/27/1546 LENNY REED MD Ot Z11.5 9 ENCOUNTER FOR SCREENING FOR OTHER VIRAL 03/09/2017 NAYE MCCABE APRN Ot R59.0 LOCALIZED ENLARGED LYMPH NODES 03/12/2017 DRISS FUNES DO Ot J45.909 UNSPECIFIED ASTHMA, UNCOMPLICATED 03/12/2017 DRISS FUNES DO Ot R06. 09 OTHER FORMS OF DYSPNEA 03/12/2017 DRISS FUNES DO Ot R59. 0 LOCALIZED ENLARGED LYMPH NODES 03/12/2017 DRISS FUNES DO Ot R93. 8 ABNORMAL FINDINGS ON DIAGNOSTIC IMAGING 03/12/2017 DRISS FUNES DO Ot Z01.818 ENCOUNTER FOR OTHER PREPROCEDURAL EXAMIN 03/12/2017 DRISS FUNES DO Ot Z77. 22 CNTCT W AND EXPSR TO ENVIRON TOBACCO SMO 03/13/2017 DRISS FUNES DO Ot J45.909 UNSPECIFIED ASTHMA, UNCOMPLICATED 03/13/2017 DRISS FUNES DO Ot R06. 09 OTHER FORMS OF DYSPNEA 03/13/2017 DRISS FUNES DO Ot R59. 0 LOCALIZED ENLARGED LYMPH NODES 03/13/2017 DRISS FUNES DO Ot R93. 8 ABNORMAL FINDINGS ON DIAGNOSTIC IMAGING 03/13/2017 DRISS FUNES DO, Ot Z01.818 ENCOUNTER FOR OTHER PREPROCEDURAL EXAMIN 03/13/2017 DRISS FUNES DO Ot Z77. 22 CNTCT W AND EXPSR TO ENVIRON TOBACCO SMO 03/14/2017 DRISS FUNES DO Ot G47. 34 IDIO SLEEP RELATED NONOBSTRUCTIVE ALVEOL 03/14/2017 DRISS FUNES DO Ot G47. 50 PARASOMNIA, UNSPECIFIED 03/14/2017 DRISS FUNES DO Ot J44. 9 CHRONIC OBSTRUCTIVE PULMONARY DISEASE, U 03/14/2017 DRISS FUNES DO Ot J45.909 UNSPECIFIED ASTHMA, UNCOMPLICATED 03/14/2017 DRISS FUNES DO Ot J84. 9 INTERSTITIAL PULMONARY DISEASE, UNSPECIF 03/14/2017 DRISS FUNES DO Ot R59. 0 LOCALIZED ENLARGED LYMPH NODES 03/14/2017 DRISS FUNES DO Ot Z77. 22 CNTCT W AND EXPSR TO ENVIRON TOBACCO SMO 03/15/2017 DRISS FUNES DO Ot G47. 34 IDIO SLEEP RELATED NONOBSTRUCTIVE ALVEOL 03/15/2017 DRISS FUNES DO Ot G47. 50 PARASOMNIA, UNSPECIFIED 03/15/2017 DRISS FUNES DO Ot J44. 9 CHRONIC OBSTRUCTIVE PULMONARY DISEASE, U 03/15/2017 DRISS FUNES DO Ot J45.909 UNSPECIFIED ASTHMA, UNCOMPLICATED 03/15/2017 DRISS FUNES DO Ot J84. 9 INTERSTITIAL PULMONARY DISEASE, UNSPECIF 03/15/2017 DRISS FUNES DO Ot R59. 0 LOCALIZED ENLARGED LYMPH NODES 03/15/2017 DRISS FUNES DO Ot Z77. 22 CNTCT W AND EXPSR TO ENVIRON TOBACCO SMO 03/21/2017 DRISS FUNES DO Ot G47. 34 IDIO SLEEP RELATED NONOBSTRUCTIVE ALVEOL 03/21/2017 DRISS FUNES DO Ot G47. 50 PARASOMNIA, UNSPECIFIED 03/21/2017 DRISS FUNES DO Ot J44. 9 CHRONIC OBSTRUCTIVE PULMONARY DISEASE, U 03/21/2017 DRISS FUNES DO Ot J45.909 UNSPECIFIED ASTHMA, UNCOMPLICATED 03/21/2017 DRISS FUNES DO Ot J84. 9 INTERSTITIAL PULMONARY DISEASE, UNSPECIF 03/21/2017 DRISS FUNES DO Ot R59. 0 LOCALIZED ENLARGED LYMPH NODES 03/21/2017 DRISS FUNES DO Ot Z77. 22 CNTCT W AND EXPSR TO ENVIRON TOBACCO SMO 03/21/2017 NAYE MCCABE APRN Ot 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AL, AORTIC 03/21/2017 NAYE MCCABE LYE PEEL OPERATOR Ot R06.09 OTHER FORMS OF DYSPNEA 03/23/2017 DRISS FUNES DO Ot G47. 34 IDIO SLEEP RELATED NONOBSTRUCTIVE ALVEOL 03/23/2017 DRISS FUNES DO Ot G47. 50 PARASOMNIA, UNSPECIFIED 03/23/2017 DRISS FUNES DO Ot J44. 9 CHRONIC OBSTRUCTIVE PULMONARY DISEASE, U 03/23/2017 DRISS FUNES DO Ot J45.909 UNSPECIFIED ASTHMA, UNCOMPLICATED 03/23/2017 DRISS FUNES DO Ot J84. 9 INTERSTITIAL PULMONARY DISEASE, UNSPECIF 03/23/2017 DRISS FUNES DO Ot R59. 0 LOCALIZED ENLARGED LYMPH NODES 03/23/2017 DRISS FUNES DO Ot Z77. 22 CNTCT W AND EXPSR TO ENVIRON TOBACCO SMO 03/23/2017 NAYE MCCABE APRN Ot R59.0 LOCALIZED ENLARGED LYMPH NODES 04/05/2017 NAYE MCCABE APRN Ot 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AL, AORTIC 04/05/2017 NAYE MCCABE APRN Ot R06.09 OTHER FORMS OF DYSPNEA 04/11/2017 DRISS FUNES DO Ot G47. 34 IDIO SLEEP RELATED NONOBSTRUCTIVE ALVEOL 04/11/2017 DRISS FUNES DO Ot G47. 50 PARASOMNIA, UNSPECIFIED 04/11/2017 DRISS FUNES DO Ot J44. 9 CHRONIC OBSTRUCTIVE PULMONARY DISEASE, U 04/11/2017 DRISS FUNES DO Ot J45.909 UNSPECIFIED ASTHMA, UNCOMPLICATED 04/11/2017 DRISS FUNES DO Ot J84. 9 INTERSTITIAL PULMONARY DISEASE, UNSPECIF 04/11/2017 DRISS FUNES DO Ot R59. 0 LOCALIZED ENLARGED LYMPH NODES 04/11/2017 SHANTEL DRISS GONZALES Ot Z77. 22 CNTCT W AND EXPSR TO ENVIRON TOBACCO SMO 07/11/2017 CONNOR KIM MD Ot E78.00 PURE HYPERCHOLESTEROLEMIA, UNSPECIFIED 07/11/2017 CONNOR KIM MD Ot F32 .9 MAJOR DEPRESSIVE DISORDER, SINGLE EPISOD 07/11/2017 CONNOR KIM MD Ot F41 .9 ANXIETY DISORDER, UNSPECIFIED 07/11/2017 CONNOR KIM MD Ot G47.33 OBSTRUCTIVE SLEEP APNEA (ADULT) (PEDIATR 07/11/2017 CONNOR KIM MD Ot I10 ESSENTIAL (PRIMARY) HYPERTENSION 07/11/2017 CONNOR KIM MD Ot I25.10 ATHSCL HEART DISEASE OF [place] CORONARY 07/11/2017 CONNOR KIM MD Ot I31 .3 PERICARDIAL EFFUSION (NONINFLAMMATORY) 07/11/2017 CONNOR KIM MD Ot J20 .9 ACUTE BRONCHITIS, UNSPECIFIED 07/11/2017 CONNOR KIM MD Ot J30 .2 OTHER SEASONAL ALLERGIC RHINITIS 07/11/2017 CONNOR KIM MD Ot J44 .0 CHRONIC OBSTRUCTIVE PULMON DISEASE W ACU 07/11/2017 CONNOR KIM MD Ot J44 .1 CHRONIC OBSTRUCTIVE PULMONARY DISEASE W 07/11/2017 CONNOR KIM MD Ot K21 .9 GASTRO-ESOPHAGEAL REFLUX DISEASE WITHOUT 07/11/2017 CONNOR KIM MD Ot R59 .0 LOCALIZED ENLARGED LYMPH NODES 07/11/2017 CONNOR KIM MD Ot Z95 .5 PRESENCE OF CORONARY ANGIOPLASTY IMPLANT 07/11/2017 CONNOR KIM MD Ot E78.00 PURE HYPERCHOLESTEROLEMIA, UNSPECIFIED 07/11/2017 CONNOR KIM MD Ot F32 .9 MAJOR DEPRESSIVE DISORDER, SINGLE EPISOD 07/11/2017 CONNOR KIM MD Ot F41 .9 ANXIETY DISORDER, UNSPECIFIED 07/11/2017 CONNOR KIM MD Ot G47.33 OBSTRUCTIVE SLEEP APNEA (ADULT) (PEDIATR 07/11/2017 CONNOR KIM MD Ot I10 ESSENTIAL (PRIMARY) HYPERTENSION 07/11/2017 CONNOR KIM MD Ot I25.10 ATHSCL HEART DISEASE OF [place] CORONARY 07/11/2017 CONNOR KIM MD Ot I31 .3 PERICARDIAL EFFUSION (NONINFLAMMATORY) 07/11/2017 CONNOR KIM MD Ot J20 .9 ACUTE BRONCHITIS, UNSPECIFIED 07/11/2017 CONNOR KIM MD Ot J30 .2 OTHER SEASONAL ALLERGIC RHINITIS 07/11/2017 CONNOR KIM MD Ot J44 .0 CHRONIC OBSTRUCTIVE PULMON DISEASE W ACU 07/11/2017 CONNOR KIM MD Ot J44 .1 CHRONIC OBSTRUCTIVE PULMONARY DISEASE W 07/11/2017 CONNOR KIM MD Ot K21 .9 GASTRO-ESOPHAGEAL REFLUX DISEASE WITHOUT 07/11/2017 CONNOR KIM MD Ot R59 .0 LOCALIZED ENLARGED LYMPH NODES 07/11/2017 CONNOR KIM MD Ot Z95 .5 PRESENCE OF CORONARY ANGIOPLASTY IMPLANT 07/15/2017 CONNOR KIM MD Ot E78.00 PURE HYPERCHOLESTEROLEMIA, UNSPECIFIED 07/15/2017 CONNOR KIM MD Ot F32 .9 MAJOR DEPRESSIVE DISORDER, SINGLE EPISOD 07/15/2017 CONNOR KIM MD Ot F41 .9 ANXIETY DISORDER, UNSPECIFIED 07/15/2017 CONNOR KIM MD Ot G47.33 OBSTRUCTIVE SLEEP APNEA (ADULT) (PEDIATR 07/15/2017 CONNOR KIM MD Ot I10 ESSENTIAL (PRIMARY) HYPERTENSION 07/15/2017 CONNOR KIM MD Ot I25.10 ATHSCL HEART DISEASE OF [place] CORONARY 07/15/2017 CONNOR KIM MD Ot I31 .3 PERICARDIAL EFFUSION (NONINFLAMMATORY) 07/15/2017 CONNOR KIM MD Ot J20 .9 ACUTE BRONCHITIS, UNSPECIFIED 07/15/2017 CONNOR KIM MD Ot J30 .2 OTHER SEASONAL ALLERGIC RHINITIS 07/15/2017 CONNOR KIM MD Ot J44 .0 CHRONIC OBSTRUCTIVE PULMON DISEASE W ACU 07/15/2017 CONNOR KIM MD Ot J44 .1 CHRONIC OBSTRUCTIVE PULMONARY DISEASE W 07/15/2017 CONNOR KIM MD Ot K21 .9 GASTRO-ESOPHAGEAL REFLUX DISEASE WITHOUT 07/15/2017 CONNOR KIM MD Ot R59 .0 LOCALIZED ENLARGED LYMPH NODES 07/15/2017 CONNOR KIM MD Ot Z95 .5 PRESENCE OF CORONARY ANGIOPLASTY IMPLANT 07/16/2017 CONNOR KIM MD Ot E78.00 PURE HYPERCHOLESTEROLEMIA, UNSPECIFIED 07/16/2017 CONNOR KIM MD Ot F32 .9 MAJOR DEPRESSIVE DISORDER, SINGLE EPISOD 07/16/2017 CONNOR KIM MD Ot F41 .9 ANXIETY DISORDER, UNSPECIFIED 07/16/2017 CONNOR KIM MD Ot G47.33 OBSTRUCTIVE SLEEP APNEA (ADULT) (PEDIATR 07/16/2017 CONNOR KIM MD Ot I10 ESSENTIAL (PRIMARY) HYPERTENSION 07/16/2017 CONNOR KIM MD Ot I25.10 ATHSCL HEART DISEASE OF [place] CORONARY 07/16/2017 CONNOR KIM MD Ot I31 .3 PERICARDIAL EFFUSION (NONINFLAMMATORY) 07/16/2017 CONNOR KIM MD Ot J20 .9 ACUTE BRONCHITIS, UNSPECIFIED 07/16/2017 CONNOR KIM MD Ot J30 .2 OTHER SEASONAL ALLERGIC RHINITIS 07/16/2017 CONNOR KIM MD Ot J44 .0 CHRONIC OBSTRUCTIVE PULMON DISEASE W ACU 07/16/2017 CONNOR KIM MD Ot J44 .1 CHRONIC OBSTRUCTIVE PULMONARY DISEASE W 07/16/2017 CONNOR KIM MD Ot K21 .9 GASTRO-ESOPHAGEAL REFLUX DISEASE WITHOUT 07/16/2017 CONNOR KIM MD Ot R59 .0 LOCALIZED ENLARGED LYMPH NODES 07/16/2017 CONNOR KIM MD Ot Z95 .5 PRESENCE OF CORONARY ANGIOPLASTY IMPLANT 07/17/2017 CONNOR KIM MD Ot E78.00 PURE HYPERCHOLESTEROLEMIA, UNSPECIFIED 07/17/2017 CONNOR KIM MD Ot F32 .9 MAJOR DEPRESSIVE DISORDER, SINGLE EPISOD 07/17/2017 CONNOR KIM MD Ot F41 .9 ANXIETY DISORDER, UNSPECIFIED 07/17/2017 CONNOR KIM MD Ot G47.33 OBSTRUCTIVE SLEEP APNEA (ADULT) (PEDIATR 07/17/2017 CONNOR KIM MD Ot I10 ESSENTIAL (PRIMARY) HYPERTENSION 07/17/2017 CONNOR KIM MD Ot I25.10 ATHSCL HEART DISEASE OF [place] CORONARY 07/17/2017 CONNOR KIM MD Ot I31 .3 PERICARDIAL EFFUSION (NONINFLAMMATORY) 07/17/2017 CONNOR KIM MD Ot J20 .9 ACUTE BRONCHITIS, UNSPECIFIED 07/17/2017 CONNOR KIM MD Ot J30 .2 OTHER SEASONAL ALLERGIC RHINITIS 07/17/2017 CONNOR KIM MD Ot J44 .0 CHRONIC OBSTRUCTIVE PULMON DISEASE W ACU 07/17/2017 CONNOR KIM MD Ot J44 .1 CHRONIC OBSTRUCTIVE PULMONARY DISEASE W 07/17/2017 CONNOR KIM MD Ot K21 .9 GASTRO-ESOPHAGEAL REFLUX DISEASE WITHOUT 07/17/2017 CONNOR KIM MD Ot R59 .0 LOCALIZED ENLARGED LYMPH NODES 07/17/2017 CONNOR KIM MD Ot Z95 .5 PRESENCE OF CORONARY ANGIOPLASTY IMPLANT 07/17/2017 CONNOR KIM MD Ot E78.00 PURE HYPERCHOLESTEROLEMIA, UNSPECIFIED 07/17/2017 CONNOR KIM MD Ot F32 .9 MAJOR DEPRESSIVE DISORDER, SINGLE EPISOD 07/17/2017 CONNOR KIM MD Ot F41 .9 ANXIETY DISORDER, UNSPECIFIED 07/17/2017 CONNOR KIM MD Ot G47.33 OBSTRUCTIVE SLEEP APNEA (ADULT) (PEDIATR 07/17/2017 CONNOR KIM MD Ot I10 ESSENTIAL (PRIMARY) HYPERTENSION 07/17/2017 CONNOR KIM MD Ot I25.10 ATHSCL HEART DISEASE OF [place] CORONARY 07/17/2017 CONNOR KIM MD Ot I31 .3 PERICARDIAL EFFUSION (NONINFLAMMATORY) 07/17/2017 CONNOR KIM MD Ot J20 .9 ACUTE BRONCHITIS, UNSPECIFIED 07/17/2017 CONNOR KIM MD Ot J30 .2 OTHER SEASONAL ALLERGIC RHINITIS 07/17/2017 CONNOR KIM MD Ot J44 .0 CHRONIC OBSTRUCTIVE PULMON DISEASE W ACU 07/17/2017 CONNOR KIM MD Ot J44 .1 CHRONIC OBSTRUCTIVE PULMONARY DISEASE W 07/17/2017 CONNOR KIM MD Ot K21 .9 GASTRO-ESOPHAGEAL REFLUX DISEASE WITHOUT 07/17/2017 CONNOR KIM MD Ot R59 .0 LOCALIZED ENLARGED LYMPH NODES 07/17/2017 CONNOR KIM MD Ot Z95 .5 PRESENCE OF CORONARY ANGIOPLASTY IMPLANT 07/18/2017 CONNOR KIM MD Ot E78.00 PURE HYPERCHOLESTEROLEMIA, UNSPECIFIED 07/18/2017 CONNOR KIM MD Ot F32 .9 MAJOR DEPRESSIVE DISORDER, SINGLE EPISOD 07/18/2017 CONNOR KIM MD Ot F41 .9 ANXIETY DISORDER, UNSPECIFIED 07/18/2017 CONNOR KIM MD Ot G47.33 OBSTRUCTIVE SLEEP APNEA (ADULT) (PEDIATR 07/18/2017 CONNOR KIM MD Ot I10 ESSENTIAL (PRIMARY) HYPERTENSION 07/18/2017 CONNOR KIM MD Ot I25.10 ATHSCL HEART DISEASE OF [place] CORONARY 07/18/2017 CONNOR KIM MD Ot I31 .3 PERICARDIAL EFFUSION (NONINFLAMMATORY) 07/18/2017 CONNOR KIM MD Ot J20 .9 ACUTE BRONCHITIS, UNSPECIFIED 07/18/2017 CONNOR KIM MD Ot J30 .2 OTHER SEASONAL ALLERGIC RHINITIS 07/18/2017 CONNOR KIM MD Ot J44 .0 CHRONIC OBSTRUCTIVE PULMON DISEASE W ACU 07/18/2017 CONNOR KIM MD Ot J44 .1 CHRONIC OBSTRUCTIVE PULMONARY DISEASE W 07/18/2017 CONNOR KIM MD Ot K21 .9 GASTRO-ESOPHAGEAL REFLUX DISEASE WITHOUT 07/18/2017 CONNOR KIM MD Ot R59 .0 LOCALIZED ENLARGED LYMPH NODES 07/18/2017 CONNOR KIM MD Ot Z95 .5 PRESENCE OF CORONARY ANGIOPLASTY IMPLANT 07/18/2017 CONNOR KIM MD Ot E05.90 THYROTOXICOSIS, UNSP WITHOUT THYROTOXIC 07/18/2017 CONNOR KIM MD Ot E66 .2 MORBID (SEVERE) OBESITY WITH ALVEOLAR HY 07/18/2017 CONNOR KIM MD Ot E78.00 PURE HYPERCHOLESTEROLEMIA, UNSPECIFIED 07/18/2017 CONNOR KIM MD Ot F32 .9 MAJOR DEPRESSIVE DISORDER, SINGLE EPISOD 07/18/2017 CONNOR KIM MD Ot F41 .9 ANXIETY DISORDER, UNSPECIFIED 07/18/2017 CONNOR KIM MD Ot G47.33 OBSTRUCTIVE SLEEP APNEA (ADULT) (PEDIATR 07/18/2017 CONNOR KIM MD Ot I10 ESSENTIAL (PRIMARY) HYPERTENSION 07/18/2017 CONNOR KIM MD Ot I11 .0 HYPERTENSIVE HEART DISEASE WITH HEART FA 07/18/2017 CONNOR KIM MD Ot I25.10 ATHSCL HEART DISEASE OF [place] CORONARY 07/18/2017 CONNOR KIM MD Ot I27 .2 OTHER SECONDARY PULMONARY HYPERTENSION 07/18/2017 CONNOR KIM MD Ot I30 .9 ACUTE PERICARDITIS, UNSPECIFIED 07/18/2017 CONNOR KIM MD Ot I31 .3 PERICARDIAL EFFUSION (NONINFLAMMATORY) 07/18/2017 CONNOR KIM MD Ot I48 .2 CHRONIC ATRIAL FIBRILLATION 07/18/2017 CONNOR KIM MD Ot I49 .3 VENTRICULAR PREMATURE DEPOLARIZATION 07/18/2017 CONNOR KIM MD Ot I50.31 ACUTE DIASTOLIC (CONGESTIVE) HEART FAILU 07/18/2017 CONNOR KIM MD Ot J20 .9 ACUTE BRONCHITIS, UNSPECIFIED 07/18/2017 CONNOR KIM MD Ot J30 .2 OTHER SEASONAL ALLERGIC RHINITIS 07/18/2017 CONNOR KIM MD Ot J44 .0 CHRONIC OBSTRUCTIVE PULMON DISEASE W ACU 07/18/2017 CONNOR KIM MD Ot J44 .1 CHRONIC OBSTRUCTIVE PULMONARY DISEASE W 07/18/2017 CONNOR KIM MD Ot K21 .9 GASTRO-ESOPHAGEAL REFLUX DISEASE WITHOUT 07/18/2017 CONNOR KIM MD Ot K59.00 CONSTIPATION, UNSPECIFIED 07/18/2017 CONNOR KIM MD Ot R59 .0 LOCALIZED ENLARGED LYMPH NODES 07/18/2017 CONNOR KIM MD Ot R63 .4 ABNORMAL WEIGHT LOSS 07/18/2017 CONNOR KIM MD Ot Z68.34 BODY MASS INDEX (BMI) 34.0-34.9, ADULT 07/18/2017 CONNOR KIM MD Ot Z95 .5 PRESENCE OF CORONARY ANGIOPLASTY IMPLANT 08/20/2017 NAYE MCCABE APRN Ot J90 PLEURAL EFFUSION, NOT ELSEWHERE CLASSIFI 08/20/2017 NAYE MCCABE APRN Ot R59.0 LOCALIZED ENLARGED LYMPH NODES 10/18/2017 NAYE MCCABE APRN Ot I51.7 CARDIOMEGALY 10/18/2017 NAYE MCCABE APRN Ot J44.9 CHRONIC OBSTRUCTIVE PULMONARY DISEASE, U 10/18/2017 NAYE MCCABE APRN Ot J96.20 ACUTE AND CHR RESP FAILURE, UNSP W HYPOX 10/18/2017 NAYE MCCABE APRN Ot J98.4 OTHER DISORDERS OF LUNG 10/18/2017 ESTELLE, NAYE E LYE PEEL OPERATOR Ot R59.0 LOCALIZED ENLARGED LYMPH NODES 05/27/2018 NAYE MCCABE LYE PEEL OPERATOR Ot R59.0 LOCALIZED ENLARGED LYMPH NODES 05/27/2018 NAYE MCCABE LYE PEEL OPERATOR Ot 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AL, AORTIC 05/27/2018 NAYE MCCABE LYE PEEL OPERATOR Ot R06.09 OTHER FORMS OF DYSPNEA 05/27/2018 NAYE MCCABE LYE PEEL OPERATOR Ot J90 PLEURAL EFFUSION, NOT ELSEWHERE CLASSIFI 05/27/2018 NAYE MCCABE LYE PEEL OPERATOR Ot R59.0 LOCALIZED ENLARGED LYMPH NODES 05/27/2018 NAYE MCCABE LYE PEEL OPERATOR Ot I51.7 CARDIOMEGALY 05/27/2018 NAYE MCCABE APRN Ot J44.9 CHRONIC OBSTRUCTIVE PULMONARY DISEASE, U 05/27/2018 NAYE MCCABE APRN Ot J96.20 ACUTE AND CHR RESP FAILURE, UNSP W HYPOX 05/27/2018 NAYE MCCABE LYE PEEL OPERATOR Ot J98.4 OTHER DISORDERS OF LUNG 05/27/2018 NAYE MCCABE APRN Ot R59.0 LOCALIZED ENLARGED LYMPH NODES 05/31/2018 CONNOR KIM MD Ot E66.01 MORBID (SEVERE) OBESITY DUE TO EXCESS CA 05/31/2018 CONNOR KIM MD Ot E78.00 PURE HYPERCHOLESTEROLEMIA, UNSPECIFIED 05/31/2018 CONNOR KIM MD Ot F32 .9 MAJOR DEPRESSIVE DISORDER, SINGLE EPISOD 05/31/2018 CONNOR KIM MD Ot F41 .9 ANXIETY DISORDER, UNSPECIFIED 05/31/2018 CONNOR KIM MD Ot I11 .0 HYPERTENSIVE HEART DISEASE WITH HEART FA 05/31/2018 CONNOR KIM MD Ot I25.10 ATHSCL HEART DISEASE OF [place] CORONARY 05/31/2018 CONNOR KIM MD Ot I48.91 UNSPECIFIED ATRIAL FIBRILLATION 05/31/2018 CONNOR KIM MD Ot I49 .3 VENTRICULAR PREMATURE DEPOLARIZATION 05/31/2018 CONNOR KIM MD Ot I50.33 ACUTE ON CHRONIC DIASTOLIC (CONGESTIVE) 05/31/2018 CONNOR KIM MD Ot I63 .9 CEREBRAL INFARCTION, UNSPECIFIED 05/31/2018 CONNOR KIM MD Ot I69.354 HEMIPLGA FOLLOWING CEREBRAL INFRC AFFECT 05/31/2018 CONNOR KIM MD Ot J44 .1 CHRONIC OBSTRUCTIVE PULMONARY DISEASE W 05/31/2018 CONNOR KIM MD Ot J45.909 UNSPECIFIED ASTHMA, UNCOMPLICATED 05/31/2018 CONNOR KIM MD Ot J96.21 ACUTE AND CHRONIC RESPIRATORY FAILURE [place] 05/31/2018 CONNOR KIM MD Ot K21 .9 GASTRO-ESOPHAGEAL REFLUX DISEASE WITHOUT 05/31/2018 CONNOR KIM MD Ot M54 .9 DORSALGIA, UNSPECIFIED 05/31/2018 CONNOR KIM MD Ot R27 .0 ATAXIA, UNSPECIFIED 05/31/2018 CONNOR KIM MD Ot R30 .0 DYSURIA 05/31/2018 CONNOR KIM MD Ot R32 UNSPECIFIED URINARY INCONTINENCE 05/31/2018 CONNOR KIM MD Ot Z68.35 BODY MASS INDEX (BMI) 35.0-35.9, ADULT 05/31/2018 CONNOR KIM MD Ot Z87.440 PERSONAL HISTORY OF URINARY (TRACT) INFE 05/31/2018 CONNOR KIM MD Ot Z95 .5 PRESENCE OF CORONARY ANGIOPLASTY IMPLANT 06/13/2018 Ot E66.2 MORB ID (SEVERE) OBESITY WITH ALVEOLAR HY 06/13/2018 Ot I10 ESSENT IAL (PRIMARY) HYPERTENSION 06/13/2018 Ot I25.10 ATH SCL HEART DISEASE OF [place] CORONARY 06/13/2018 Ot I27.20 PUL MONARY HYPERTENSION, UNSPECIFIED 06/13/2018 Ot I48.2 HEATING AND AIR CONDITIONING MECHANIC MARYBEL ATRIAL FIBRILLATION 06/13/2018 Ot I49.3 VENT RICULAR PREMATURE DEPOLARIZATION 06/13/2018 Ot I69.354 HE MIPLGA FOLLOWING CEREBRAL INFRC AFFECT 06/13/2018 Ot J44.9 HEATING AND AIR CONDITIONING MECHANIC [place]ARY[place]EL OBSTRUCTIVE PULMONARY DISEASE, U 06/13/2018 Ot K21.9 BEATRICE RO-ESOPHAGEAL REFLUX DISEASE WITHOUT 06/13/2018 Ot R73.9 HYPE RGLYCEMIA, UNSPECIFIED 06/13/2018 Ot T38.0X5A A DVERSE EFFECT OF GLUCOCORT/SYNTH ANALOG 06/13/2018 Ot Z68.36 BOD Y MASS INDEX (BMI) 36.0-36.9, ADULT 06/13/2018 Ot Z99.81 DEP ENDENCE ON SUPPLEMENTAL OXYGEN 01/22/2019 ESTELLE, NAYE E LYE PEEL OPERATOR Ot R59.0 LOCALIZED ENLARGED LYMPH NODES 01/22/2019 NAYE MCCABE LYE PEEL OPERATOR Ot 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AL, AORTIC 01/22/2019 NAYE MCCABE LYE PEEL OPERATOR Ot R06.09 OTHER FORMS OF DYSPNEA 01/22/2019 NAYE MCCABE LYE PEEL OPERATOR Ot J90 PLEURAL EFFUSION, NOT ELSEWHERE CLASSIFI 01/22/2019 NAYE MCCABE LYE PEEL OPERATOR Ot R59.0 LOCALIZED ENLARGED LYMPH NODES 01/22/2019 NAYE MCCABE LYE PEEL OPERATOR Ot I51.7 CARDIOMEGALY 01/22/2019 NAYE MCCABE LYE PEEL OPERATOR Ot J44.9 CHRONIC OBSTRUCTIVE PULMONARY DISEASE, U 01/22/2019 NAYE MCCABE LYE PEEL OPERATOR Ot J96.20 ACUTE AND CHR RESP FAILURE, UNSP W HYPOX 01/22/2019 NAYE MCCABE LYE PEEL OPERATOR Ot J98.4 OTHER DISORDERS OF LUNG 01/22/2019 NAYE MCCABE LYE PEEL OPERATOR Ot R59.0 LOCALIZED ENLARGED LYMPH NODES 01/22/2019 NAYE MCCABE LYE PEEL OPERATOR Ot R59.0 LOCALIZED ENLARGED LYMPH NODES 01/22/2019 NAYE MCCABE LYE PEEL OPERATOR Ot 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AL, AORTIC 01/22/2019 NAYE MCCABE LYE PEEL OPERATOR Ot R06.09 OTHER FORMS OF DYSPNEA 01/22/2019 NAYE MCCABE LYE PEEL OPERATOR Ot J90 PLEURAL EFFUSION, NOT ELSEWHERE CLASSIFI 01/22/2019 NAYE MCCABE LYE PEEL OPERATOR Ot R59.0 LOCALIZED ENLARGED LYMPH NODES 01/22/2019 NAYE MCCABE LYE PEEL OPERATOR Ot I51.7 CARDIOMEGALY 01/22/2019 NAYE MCCABE LYE PEEL OPERATOR Ot J44.9 CHRONIC OBSTRUCTIVE PULMONARY DISEASE, U 01/22/2019 NAYE MCCABE LYE PEEL OPERATOR Ot J96.20 ACUTE AND CHR RESP FAILURE, UNSP W HYPOX 01/22/2019 NAYE MCCABE LYE PEEL OPERATOR Ot J98.4 OTHER DISORDERS OF LUNG 01/22/2019 NAYE MCCABE LYE PEEL OPERATOR Ot R59.0 LOCALIZED ENLARGED LYMPH NODES 01/24/2019 JUDY GIL, CONNOR Xiao Ot E78.00 PURE HYPERCHOLESTEROLEMIA, UNSPECIFIED 01/24/2019 JUDY GIL, CONNOR Xiao Ot E87 .2 ACIDOSIS 01/24/2019 CONNOR KIM MD Ot E87 .6 HYPOKALEMIA 01/24/2019 CONNOR KIM MD Ot F32 .9 MAJOR DEPRESSIVE DISORDER, SINGLE EPISOD 01/24/2019 CONNOR KIM MD Ot F41 .9 ANXIETY DISORDER, UNSPECIFIED 01/24/2019 CONNOR KIM MD Ot G47.30 SLEEP APNEA, UNSPECIFIED 01/24/2019 CONONR KIM MD Ot I13 .0 HYP HRT CHR KDNY DIS W HRT FAIL AND ST 01/24/2019 CONNOR KIM MD Ot I25.10 ATHSCL HEART DISEASE OF [place] CORONARY 01/24/2019 CONNOR KIM MD Ot I48 .2 CHRONIC ATRIAL FIBRILLATION 01/24/2019 CONNOR KIM MD Ot 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 01/24/2019 CONNOR KIM MD Ot J30 .2 OTHER SEASONAL ALLERGIC RHINITIS 01/24/2019 CONNOR KIM MD Ot J43 .9 EMPHYSEMA, UNSPECIFIED 01/24/2019 CONNOR KIM MD Ot K21 .9 GASTRO-ESOPHAGEAL REFLUX DISEASE WITHOUT 01/24/2019 CONNOR KIM MD Ot M19.91 PRIMARY OSTEOARTHRITIS, UNSPECIFIED SITE 01/24/2019 CONNOR KIM MD Ot M54 .9 DORSALGIA, UNSPECIFIED 01/24/2019 CONNOR KIM MD Ot N18 .9 CHRONIC KIDNEY DISEASE, UNSPECIFIED 01/24/2019 CONNOR KIM MD Ot Z77.22 CNTCT W AND EXPSR TO ENVIRON TOBACCO SMO 01/24/2019 CONNOR KIM MD Ot Z90 .5 ACQUIRED ABSENCE OF KIDNEY 01/24/2019 CONNOR KIM MD Ot Z95 .5 PRESENCE OF CORONARY ANGIOPLASTY IMPLANT 01/25/2019 CONNOR KIM MD Ot E78.00 PURE HYPERCHOLESTEROLEMIA, UNSPECIFIED 01/25/2019 CONNOR KIM MD Ot E87 .2 ACIDOSIS 01/25/2019 CONNOR KIM MD Ot E87 .6 HYPOKALEMIA 01/25/2019 CONNOR KIM MD Ot F32 .9 MAJOR DEPRESSIVE DISORDER, SINGLE EPISOD 01/25/2019 CONNOR KIM MD Ot F41 .9 ANXIETY DISORDER, UNSPECIFIED 01/25/2019 CONNOR KIM MD Ot G47.30 SLEEP APNEA, UNSPECIFIED 01/25/2019 CONNOR KIM MD Ot I13 .0 HYP HRT CHR [place] DIS W HRT FAIL AND ST 01/25/2019 CONNOR KIM MD Ot I25.10 ATHSCL HEART DISEASE OF [place] CORONARY 01/25/2019 CONNOR KIM MD Ot I48 .2 CHRONIC ATRIAL FIBRILLATION 01/25/2019 CONNOR KIM MD Ot 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 01/25/2019 CONNOR KIM MD, Ot J30 .2 OTHER SEASONAL ALLERGIC RHINITIS 01/25/2019 CONNOR KIM MD Ot J43 .9 EMPHYSEMA, UNSPECIFIED 01/25/2019 CONNOR KIM MD, Ot K21 .9 GASTRO-ESOPHAGEAL REFLUX DISEASE WITHOUT 01/25/2019 CONNOR KIM MD Ot M19.91 PRIMARY OSTEOARTHRITIS, UNSPECIFIED SITE 01/25/2019 CONNOR KIM MD Ot M54 .9 DORSALGIA, UNSPECIFIED 01/25/2019 CONNOR KIM MD Ot N18 .9 CHRONIC KIDNEY DISEASE, UNSPECIFIED 01/25/2019 CONNOR KIM MD Ot Z77.22 CNTCT W AND EXPSR TO ENVIRON TOBACCO SMO 01/25/2019 CONNOR KIM MD Ot Z90 .5 ACQUIRED ABSENCE OF KIDNEY 01/25/2019 CONNOR KIM MD Ot Z95 .5 PRESENCE OF CORONARY ANGIOPLASTY IMPLANT 01/26/2019 CONNOR KIM MD Ot E78.00 PURE HYPERCHOLESTEROLEMIA, UNSPECIFIED 01/26/2019 CONNOR KIM MD Ot E87 .2 ACIDOSIS 01/26/2019 CONNOR KIM MD Ot E87 .6 HYPOKALEMIA 01/26/2019 CONNOR KIM MD Ot F32 .9 MAJOR DEPRESSIVE DISORDER, SINGLE EPISOD 01/26/2019 CONNOR KIM MD Ot F41 .9 ANXIETY DISORDER, UNSPECIFIED 01/26/2019 CONNOR KIM MD Ot G47.30 SLEEP APNEA, UNSPECIFIED 01/26/2019 CONNOR KIM MD Ot I13 .0 HYP HRT CHR [place] DIS W HRT FAIL AND ST 01/26/2019 CONNOR KIM MD Ot I25.10 ATHSCL HEART DISEASE OF [place] CORONARY 01/26/2019 CONNOR KIM MD Ot I48 .2 CHRONIC ATRIAL FIBRILLATION 01/26/2019 CONNOR KIM MD Ot 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 01/26/2019 CONNOR KIM MD Ot J30 .2 OTHER SEASONAL ALLERGIC RHINITIS 01/26/2019 CONNOR KIM MD Ot J43 .9 EMPHYSEMA, UNSPECIFIED 01/26/2019 CONNOR KIM MD Ot K21 .9 GASTRO-ESOPHAGEAL REFLUX DISEASE WITHOUT 01/26/2019 CONNOR KIM MD Ot M19.91 PRIMARY OSTEOARTHRITIS, UNSPECIFIED SITE 01/26/2019 CONNOR KIM MD Ot M54 .9 DORSALGIA, UNSPECIFIED 01/26/2019 CONNOR KIM MD Ot N18 .9 CHRONIC KIDNEY DISEASE, UNSPECIFIED 01/26/2019 CONNOR KIM MD Ot Z77.22 CNTCT W AND EXPSR TO ENVIRON TOBACCO SMO 01/26/2019 CONNOR KIM MD Ot Z90 .5 ACQUIRED ABSENCE OF KIDNEY 01/26/2019 CONNOR KIM MD Ot Z95 .5 PRESENCE OF CORONARY ANGIOPLASTY IMPLANT 01/27/2019 CONNOR KIM MD Ot E78.00 PURE HYPERCHOLESTEROLEMIA, UNSPECIFIED 01/27/2019 CONNOR KIM MD Ot E87 .2 ACIDOSIS 01/27/2019 CONNOR KIM MD Ot E87 .6 HYPOKALEMIA 01/27/2019 CONNOR KIM MD Ot F32 .9 MAJOR DEPRESSIVE DISORDER, SINGLE EPISOD 01/27/2019 CONNOR KIM MD Ot F41 .9 ANXIETY DISORDER, UNSPECIFIED 01/27/2019 CONNOR KIM MD Ot G47.30 SLEEP APNEA, UNSPECIFIED 01/27/2019 CONNOR KIM MD Ot I13 .0 HYP HRT CHR [place] DIS W HRT FAIL AND ST 01/27/2019 CONNOR KIM MD Ot I25.10 ATHSCL HEART DISEASE OF [place] CORONARY 01/27/2019 CONNOR KIM MD Ot I48 .2 CHRONIC ATRIAL FIBRILLATION 01/27/2019 CONNOR KIM MD Ot 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 01/27/2019 CONNOR KIM MD Ot J30 .2 OTHER SEASONAL ALLERGIC RHINITIS 01/27/2019 CONNOR KIM MD Ot J43 .9 EMPHYSEMA, UNSPECIFIED 01/27/2019 CONNOR KIM MD Ot K21 .9 GASTRO-ESOPHAGEAL REFLUX DISEASE WITHOUT 01/27/2019 CONNOR KIM MD Ot M19.91 PRIMARY OSTEOARTHRITIS, UNSPECIFIED SITE 01/27/2019 CONNOR KIM MD Ot M54 .9 DORSALGIA, UNSPECIFIED 01/27/2019 CONNOR KIM MD Ot N18 .9 CHRONIC KIDNEY DISEASE, UNSPECIFIED 01/27/2019 CONNOR KIM MD Ot Z77.22 CNTCT W AND EXPSR TO ENVIRON TOBACCO SMO 01/27/2019 CONNOR KIM MD Ot Z90 .5 ACQUIRED ABSENCE OF KIDNEY 01/27/2019 CONNOR KIM MD Ot Z95 .5 PRESENCE OF CORONARY ANGIOPLASTY IMPLANT 01/27/2019 CONNOR KIM MD Ot E66 .2 MORBID (SEVERE) OBESITY WITH ALVEOLAR HY 01/27/2019 CONNOR KIM MD Ot E78.00 PURE HYPERCHOLESTEROLEMIA, UNSPECIFIED 01/27/2019 CONNOR KIM MD Ot E87 .2 ACIDOSIS 01/27/2019 CONNOR KIM MD Ot E87 .6 HYPOKALEMIA 01/27/2019 CONNOR KIM MD Ot F32 .9 MAJOR DEPRESSIVE DISORDER, SINGLE EPISOD 01/27/2019 CONNOR KIM MD Ot F41 .9 ANXIETY DISORDER, UNSPECIFIED 01/27/2019 CONNOR KIM MD Ot G47.30 SLEEP APNEA, UNSPECIFIED 01/27/2019 CONNOR KIM MD Ot 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 01/27/2019 CONNOR KIM MD Ot I13 .0 HYP HRT CHR [place] DIS W HRT FAIL AND ST 01/27/2019 CONNOR KIM MD Ot I25.10 ATHSCL HEART DISEASE OF [place] CORONARY 01/27/2019 CONNOR KIM MD Ot I48 .2 CHRONIC ATRIAL FIBRILLATION 01/27/2019 CONONR KIM MD Ot I50.33 ACUTE ON CHRONIC DIASTOLIC (CONGESTIVE) 01/27/2019 CONNOR KIM MD Ot J30 .2 OTHER SEASONAL ALLERGIC RHINITIS 01/27/2019 CONNOR KIM MD Ot J43 .9 EMPHYSEMA, UNSPECIFIED 01/27/2019 CONNOR KIM MD Ot J44 .1 CHRONIC OBSTRUCTIVE PULMONARY DISEASE W 01/27/2019 CONNOR KIM MD Ot K21 .9 GASTRO-ESOPHAGEAL REFLUX DISEASE WITHOUT 01/27/2019 CONNOR KIM MD Ot M19.91 PRIMARY OSTEOARTHRITIS, UNSPECIFIED SITE 01/27/2019 CONNOR KIM MD Ot M54 .9 DORSALGIA, UNSPECIFIED 01/27/2019 CONNOR KIM MD Ot N18 .9 CHRONIC KIDNEY DISEASE, UNSPECIFIED 01/27/2019 CONNOR KIM MD Ot R00 .1 BRADYCARDIA, UNSPECIFIED 01/27/2019 CONNOR KIM MD Ot R09.02 HYPOXEMIA 01/27/2019 CONNOR KIM MD Ot Z68.35 BODY MASS INDEX (BMI) 35.0-35.9, ADULT 01/27/2019 CONNOR KIM MD Ot Z77.22 CNTCT W AND EXPSR TO ENVIRON TOBACCO SMO 01/27/2019 CONNOR KIM MD Ot Z79.01 SERVICE AND REPAIR SUPERVISOR (CURRENT) USE OF ANTICOAGULANT 01/27/2019 CONNOR KIM MD Ot Z88 .0 ALLERGY STATUS TO PENICILLIN 01/27/2019 CONNOR KIM MD Ot Z88 .2 ALLERGY STATUS TO SULFONAMIDES STATUS 01/27/2019 CONNOR KIM MD Ot Z90 .5 ACQUIRED ABSENCE OF KIDNEY 01/27/2019 CONNOR KIM MD Ot Z95 .5 PRESENCE OF CORONARY ANGIOPLASTY IMPLANT 05/12/2019 NAYE MCCABE APRN Ot R59.0 LOCALIZED ENLARGED LYMPH NODES 05/12/2019 NAYE MCCABE APRN Ot 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[place], AORTIC 05/12/2019 NAYE MCCABE LYE PEEL OPERATOR Ot R06.09 OTHER FORMS OF DYSPNEA 05/12/2019 NAYE MCCABE LYE PEEL OPERATOR Ot J90 PLEURAL EFFUSION, NOT ELSEWHERE CLASSIFI 05/12/2019 NAYE MCCABE APRN Ot R59.0 LOCALIZED ENLARGED LYMPH NODES 05/12/2019 NAYE MCCABE LYE PEEL OPERATOR Ot I51.7 CARDIOMEGALY 05/12/2019 NAYE MCCABE APRN Ot J44.9 CHRONIC OBSTRUCTIVE PULMONARY DISEASE, U 05/12/2019 NAYE MCCABE LYE PEEL OPERATOR Ot J96.20 ACUTE AND CHR RESP FAILURE, UNSP W HYPOX 05/12/2019 NAYE MCCABE APRN Ot J98.4 OTHER DISORDERS OF LUNG 05/12/2019 NAYE MCCABE APRN Ot R59.0 LOCALIZED ENLARGED LYMPH NODES 05/14/2019 MIGEL MCGUIRE DO Ot E66.2 MORBID (SEVERE) OBESITY WITH ALVEOLAR HY 05/14/2019 MAYNOR GONZALES MIGEL Ot E78.00 PURE HYPERCHOLESTEROLEMIA, UNSPECIFIED 05/14/2019 MAYNOR GONZALES MIGEL Ot E87.6 HYPOKALEMIA 05/14/2019 MAYNOR GONZALES MIGEL Ot F32.9 MAJOR DEPRESSIVE DISORDER, SINGLE EPISOD 05/14/2019 MAYNOR GONZALES MIGEL Ot F41.9 ANXIETY DISORDER, UNSPECIFIED 05/14/2019 MAYNOR GONZALES MIGEL Ot G47.30 SLEEP APNEA, UNSPECIFIED 05/14/2019 MAYNOR GONZALES MIGEL Ot I08.1 RHEUMATIC DISORDERS OF BOTH [place] AND T 05/14/2019 MAYNOR GONZALES MIGEL Ot I11.0 HYPERTENSIVE HEART DISEASE WITH HEART FA 05/14/2019 DONITA MCGUIRE DOI Ot I25.10 ATHSCL HEART DISEASE OF [place] CORONARY 05/14/2019 MAYNOR GONZALES MIGEL Ot I48.1 PERSISTENT ATRIAL FIBRILLATION 05/14/2019 MAYNOR GONZALES MIGEL Ot I50.33 ACUTE ON CHRONIC DIASTOLIC (CONGESTIVE) 05/14/2019 MIGEL MCGUIRE DO Ot J30.2 OTHER SEASONAL ALLERGIC RHINITIS 05/14/2019 DONITA MCGUIRE DOI Ot J44.1 CHRONIC OBSTRUCTIVE PULMONARY DISEASE W 05/14/2019 MIGEL MCGUIRE DO Ot K21.9 GASTRO-ESOPHAGEAL REFLUX DISEASE WITHOUT 05/14/2019 DONITA MCGUIRE DOI Ot M19.91 PRIMARY OSTEOARTHRITIS, UNSPECIFIED SITE 05/14/2019 MAYNOR GONZALES MIGEL Ot M54.9 DORSALGIA, UNSPECIFIED 05/14/2019 MAYNOR GONZALES MIGEL Ot R06.03 ACUTE RESPIRATORY DISTRESS 05/14/2019 DONITA MCGUIRE DOI Ot R11.0 NAUSEA 05/14/2019 MAYNOR GONZALES MIGEL Ot Z79.01 SERVICE AND REPAIR SUPERVISOR (CURRENT) USE OF ANTICOAGULANT 05/14/2019 MAYNOR GONZALES MIGEL Ot Z85.52 8 PERSONAL HISTORY OF OTHER MALIGNANT NEOP 05/14/2019 DONITA MCGUIRE DOI Ot Z90.5 ACQUIRED ABSENCE OF KIDNEY 05/14/2019 MAYNOR GONZALES MIGEL Ot Z95.5 PRESENCE OF CORONARY ANGIOPLASTY IMPLANT 05/15/2019 MAYNOR GONZALES MIGEL Ot E66.2 MORBID (SEVERE) OBESITY WITH ALVEOLAR HY 05/15/2019 MAYNOR GONZALES MIGEL Ot E78.00 PURE HYPERCHOLESTEROLEMIA, UNSPECIFIED 05/15/2019 MAYNOR GONZALES MIGEL Ot E87.6 HYPOKALEMIA 05/15/2019 MAYNOR GONZALES MIGEL Ot F32.9 MAJOR DEPRESSIVE DISORDER, SINGLE EPISOD 05/15/2019 MAYNOR GONZALES MIGEL Ot F41.9 ANXIETY DISORDER, UNSPECIFIED 05/15/2019 MAYNOR GONZALES MIGEL Ot G47.30 SLEEP APNEA, UNSPECIFIED 05/15/2019 MAYNOR GONZALES MIGEL Ot I08.1 RHEUMATIC DISORDERS OF BOTH [place] AND T 05/15/2019 MAYNOR GONZALES MIGEL Ot I11.0 HYPERTENSIVE HEART DISEASE WITH HEART FA 05/15/2019 MAYNOR GONZALES MIGEL Ot I25.10 ATHSCL HEART DISEASE OF [place] CORONARY 05/15/2019 MAYNOR GONZALES MIGEL Ot I48.1 PERSISTENT ATRIAL FIBRILLATION 05/15/2019 MAYNOR GONZALES MIGEL Ot I50.33 ACUTE ON CHRONIC DIASTOLIC (CONGESTIVE) 05/15/2019 MAYNOR GONZALES MIGEL Ot J30.2 OTHER SEASONAL ALLERGIC RHINITIS 05/15/2019 MAYNOR GONZALES MIGEL Ot J44.1 CHRONIC OBSTRUCTIVE PULMONARY DISEASE W 05/15/2019 MAYNOR GONZALES MIGEL Ot K21.9 GASTRO-ESOPHAGEAL REFLUX DISEASE WITHOUT 05/15/2019 MAYNOR GONZALES MIGEL Ot M19.91 PRIMARY OSTEOARTHRITIS, UNSPECIFIED SITE 05/15/2019 MAYNOR GONZALES MIGEL Ot M54.9 DORSALGIA, UNSPECIFIED 05/15/2019 MAYNOR GONZALES MIGEL Ot R06.03 ACUTE RESPIRATORY DISTRESS 05/15/2019 MAYNOR GONZALES MIGEL Ot R11.0 NAUSEA 05/15/2019 DONITA MCGUIRE DOI Ot Z79.01 PENITENTIARY (CURRENT) USE OF ANTICOAGULANT 05/15/2019 MAYNOR GONZALES MIGEL Ot Z85.52 8 PERSONAL HISTORY OF OTHER MALIGNANT NEOP 05/15/2019 MAYNOR GONZALES MIGEL Ot Z90.5 ACQUIRED ABSENCE OF KIDNEY 05/15/2019 MAYNOR GONZALES MIGEL Ot Z95.5 PRESENCE OF CORONARY ANGIOPLASTY IMPLANT 05/16/2019 MAYNOR GONZALES MIGEL Ot E66.2 MORBID (SEVERE) OBESITY WITH ALVEOLAR HY 05/16/2019 MAYNOR DO, MIGEL Ot E78.00 PURE HYPERCHOLESTEROLEMIA, UNSPECIFIED 05/16/2019 MAYNOR GONZALES MIGEL Ot E87.6 HYPOKALEMIA 05/16/2019 MAYNOR GONZALES, MIGEL Ot F32.9 MAJOR DEPRESSIVE DISORDER, SINGLE EPISOD 05/16/2019 MAYNOR DO MIGEL Ot F41.9 ANXIETY DISORDER, UNSPECIFIED 05/16/2019 MAYNOR GONZALES MIGEL Ot G47.30 SLEEP APNEA, UNSPECIFIED 05/16/2019 MAYNOR GONZALES MIGEL Ot I08.1 RHEUMATIC DISORDERS OF BOTH [place] AND T 05/16/2019 MAYNOR DO MIGEL Ot I11.0 HYPERTENSIVE HEART DISEASE WITH HEART FA 05/16/2019 MAYNOR GONZALES MIGEL Ot I25.10 ATHSCL HEART DISEASE OF [place] CORONARY 05/16/2019 MAYNOR GONZALES MIGEL Ot I48.1 PERSISTENT ATRIAL FIBRILLATION 05/16/2019 MAYNOR GONZALES MIGEL Ot I50.33 ACUTE ON CHRONIC DIASTOLIC (CONGESTIVE) 05/16/2019 MAYNOR GONZALES MIGEL Ot J30.2 OTHER SEASONAL ALLERGIC RHINITIS 05/16/2019 MAYNOR GONZALES MIGEL Ot J44.1 CHRONIC OBSTRUCTIVE PULMONARY DISEASE W 05/16/2019 MAYNOR GONZALES MIGEL Ot K21.9 GASTRO-ESOPHAGEAL REFLUX DISEASE WITHOUT 05/16/2019 MAYNOR GONZALES MIGEL Ot M19.91 PRIMARY OSTEOARTHRITIS, UNSPECIFIED SITE 05/16/2019 MAYNOR GONZALES MIGEL Ot M54.9 DORSALGIA, UNSPECIFIED 05/16/2019 MAYNOR GONZALES MIGEL Ot R06.03 ACUTE RESPIRATORY DISTRESS 05/16/2019 MAYNOR GONZALES MIGEL Ot R11.0 NAUSEA 05/16/2019 MAYNOR GONZALES MIGEL Ot Z79.01 PENITENTIARY (CURRENT) USE OF ANTICOAGULANT 05/16/2019 MAYNOR GONZALES MIGEL Ot Z85.52 8 PERSONAL HISTORY OF OTHER MALIGNANT NEOP 05/16/2019 MAYNOR GONZALES MIGEL Ot Z90.5 ACQUIRED ABSENCE OF KIDNEY 05/16/2019 MAYNOR GONZALES MIGEL Ot Z95.5 PRESENCE OF CORONARY ANGIOPLASTY IMPLANT 05/16/2019 MAYNOR GONZALES MIGEL Ot E66.2 MORBID (SEVERE) OBESITY WITH ALVEOLAR HY 05/16/2019 MAYNOR GONZALES MIGEL Ot E78.00 PURE HYPERCHOLESTEROLEMIA, UNSPECIFIED 05/16/2019 MAYNOR GONZALES, MIGEL Ot E87.6 HYPOKALEMIA 05/16/2019 MAYNOR GONZALES MIGEL Ot F32.9 MAJOR DEPRESSIVE DISORDER, SINGLE EPISOD 05/16/2019 MAYNOR GONZALES MIGEL Ot F41.9 ANXIETY DISORDER, UNSPECIFIED 05/16/2019 MAYNOR GONZALES MIGEL Ot G47.30 SLEEP APNEA, UNSPECIFIED 05/16/2019 MAYNOR GONZALES MIGEL Ot I08.1 RHEUMATIC DISORDERS OF BOTH [place] AND T 05/16/2019 MAYNOR GONZALES MIGEL Ot I11.0 HYPERTENSIVE HEART DISEASE WITH HEART FA 05/16/2019 MAYNOR GONZALES MIGEL Ot I25.10 ATHSCL HEART DISEASE OF [place] CORONARY 05/16/2019 MAYNOR GONZALES MIGEL Ot I27.20 PULMONARY HYPERTENSION, UNSPECIFIED 05/16/2019 MAYNOR GONZALES MIGEL Ot I48.1 PERSISTENT ATRIAL FIBRILLATION 05/16/2019 MAYNOR GONZALES MIGEL Ot I48.2 CHRONIC ATRIAL FIBRILLATION 05/16/2019 MAYNOR GONZALES MIGEL Ot I50.33 ACUTE ON CHRONIC DIASTOLIC (CONGESTIVE) 05/16/2019 MAYNOR GONZALES MIGEL Ot J30.2 OTHER SEASONAL ALLERGIC RHINITIS 05/16/2019 MAYNOR GONZALES MIGEL Ot J44.1 CHRONIC OBSTRUCTIVE PULMONARY DISEASE W 05/16/2019 DONITA MCGUIRE DOI Ot J96.01 ACUTE RESPIRATORY FAILURE WITH HYPOXIA 05/16/2019 MAYNOR GONZALES MIGEL Ot K21.9 GASTRO-ESOPHAGEAL REFLUX DISEASE WITHOUT 05/16/2019 MAYNOR GONZALES MIGEL Ot M19.91 PRIMARY OSTEOARTHRITIS, UNSPECIFIED SITE 05/16/2019 MAYNOR GONZALES MIGEL Ot M54.9 DORSALGIA, UNSPECIFIED 05/16/2019 MAYNOR GONZALES MIGEL Ot R06.03 ACUTE RESPIRATORY DISTRESS 05/16/2019 MAYNOR GONZALES MIGEL Ot R11.0 NAUSEA 05/16/2019 MAYNOR GONZALES MIGEL Ot Z68.39 BODY MASS INDEX (BMI) 39.0-39.9, ADULT 05/16/2019 MAYNOR GONZALES MIGEL Ot Z79.01 PENITENTIARY (CURRENT) USE OF ANTICOAGULANT 05/16/2019 MAYNOR GONZALES MIGEL Ot Z85.52 8 PERSONAL HISTORY OF OTHER MALIGNANT NEOP 05/16/2019 MAYNOR GONZALES MIGEL Ot Z88.0 ALLERGY STATUS TO PENICILLIN 05/16/2019 MCGUIRERACHEL GONZALES MIGEL Ot Z88.2 ALLERGY STATUS TO SULFONAMIDES STATUS 05/16/2019 MIGEL MCGUIRE DO Ot Z90.5 ACQUIRED ABSENCE OF KIDNEY 05/16/2019 MIGEL MCGUIRE DO Ot Z95.5 PRESENCE OF CORONARY ANGIOPLASTY IMPLANT 06/26/2019 ANGELITO CHU MD Ot N28.89 OTHER SPECIFIED DISORDERS OF KIDNEY AND 06/26/2019 ANGELITO CHU MD Ot R10.9 UNSPECIFIED ABDOMINAL PAIN 06/26/2019 ANGELITO CHU MD Ot Z98.890 OTHER SPECIFIED POSTPROCEDURAL STATES 06/30/2019 ANGELITO CHU MD Ot N28.89 OTHER SPECIFIED DISORDERS OF KIDNEY AND 06/30/2019 ANGELITO CHU MD Ot R10.9 UNSPECIFIED ABDOMINAL PAIN 06/30/2019 ANGELITO CHU MD Ot Z98.890 OTHER SPECIFIED POSTPROCEDURAL STATES 07/07/2019 ANGELITO CHU MD Ot K57.30 DVRTCLOS OF LG INT W/O PERFORATION OR AB 07/09/2019 ANGELITO CHU MD Ot K57.30 DVRTCLOS OF LG INT W/O PERFORATION OR AB 07/17/2019 ANGELITO CHU MD Ot N28.89 OTHER SPECIFIED DISORDERS OF KIDNEY AND 07/17/2019 ANGELITO CHU MD Ot R10.9 UNSPECIFIED ABDOMINAL PAIN 07/17/2019 ANGELITO CHU MD Ot Z98.890 OTHER SPECIFIED POSTPROCEDURAL STATES 07/23/2019 ANGELITO CHU MD Ot K57.30 DVRTCLOS OF LG INT W/O PERFORATION OR AB 08/07/2019 LENNY REED MD Ot N20.0 CALCULUS OF KIDNEY 08/25/2019 LENNY REED MD Ot N20.0 CALCULUS OF KIDNEY 09/04/2019 LENNY REED MD Ot Z01.8 18 ENCOUNTER FOR OTHER PREPROCEDURAL EXAMIN 09/10/2019 LENNY REED MD Ot E66.0 1 MORBID (SEVERE) OBESITY DUE TO EXCESS CA 09/10/2019 LENNY REED MD Ot F32.9 MAJOR DEPRESSIVE DISORDER, SINGLE EPISOD 09/10/2019 LENNY REED MD, Ot F41.9 ANXIETY DISORDER, UNSPECIFIED 09/10/2019 LENNY REED MD, Ot I10 ESSENTIAL (PRIMARY) HYPERTENSION 09/10/2019 LENNY REED MD, Ot I25.1 0 ATHSCL HEART DISEASE OF [place] CORONARY 09/10/2019 LENNY REED MD, Ot I48.9 1 UNSPECIFIED ATRIAL FIBRILLATION 09/10/2019 LENNY REED MD, Ot J44.9 CHRONIC OBSTRUCTIVE PULMONARY DISEASE, U 09/10/2019 LENNY REED MD, Ot K21.9 GASTRO-ESOPHAGEAL REFLUX DISEASE WITHOUT 09/10/2019 LENNY REED MD, Ot M19.9 0 UNSPECIFIED OSTEOARTHRITIS, UNSPECIFIED 09/10/2019 LENNY REED MD, Ot N32.8 1 OVERACTIVE BLADDER 09/10/2019 LENNY REED MD Ot N36.4 2 INTRINSIC SPHINCTER DEFICIENCY (ISD) 09/10/2019 LENNY REED MD, Ot N39.4 6 MIXED INCONTINENCE 09/10/2019 LENNY REED MD, Ot Z68.3 8 BODY MASS INDEX (BMI) 38.0-38.9, ADULT 09/10/2019 LENNY REED MD Ot Z79.0 2 SERVICE AND REPAIR SUPERVISOR (CURRENT) USE OF ANTITHROMBOTI 09/10/2019 LENNY REED MD, Ot Z79.5 1 PENITENTIARY (CURRENT) USE OF INHALED STERO 09/10/2019 LENNY REED MD Ot Z88.0 ALLERGY STATUS TO PENICILLIN 09/10/2019 LENNY REED MD, Ot Z88.2 ALLERGY STATUS TO SULFONAMIDES STATUS 09/10/2019 LENNY REED MD, Ot Z88.8 ALLERGY STATUS TO OTH DRUG/MEDS/BIOL SUB 09/10/2019 LENNY REED MD, Ot Z90.7 10 ACQUIRED ABSENCE OF BOTH CERVIX AND UTER 09/10/2019 LENNY REED MD, Ot Z91.0 48 OTHER NONMEDICINAL SUBSTANCE ALLERGY STA 09/10/2019 LENNY REED MD, Ot Z95.5 PRESENCE OF CORONARY ANGIOPLASTY IMPLANT 09/10/2019 LENNY REED MD, Ot Z99.8 1 DEPENDENCE ON SUPPLEMENTAL OXYGEN 09/12/2019 LENNY REED MD, Ot E66.0 1 MORBID (SEVERE) OBESITY DUE TO EXCESS CA 09/12/2019 LENNY REED MD, Ot F32.9 MAJOR DEPRESSIVE DISORDER, SINGLE EPISOD 09/12/2019 LENNY REED MD, Ot F41.9 ANXIETY DISORDER, UNSPECIFIED 09/12/2019 LENNY REED MD, Ot I10 ESSENTIAL (PRIMARY) HYPERTENSION 09/12/2019 LENNY REED MD, Ot I25.1 0 ATHSCL HEART DISEASE OF [place] CORONARY 09/12/2019 LENNY REED MD, Ot I48.9 1 UNSPECIFIED ATRIAL FIBRILLATION 09/12/2019 LENNY REED MD, Ot J44.9 CHRONIC OBSTRUCTIVE PULMONARY DISEASE, U 09/12/2019 LENNY REED MD, Ot K21.9 GASTRO-ESOPHAGEAL REFLUX DISEASE WITHOUT 09/12/2019 LENNY REED MD, Ot M19.9 0 UNSPECIFIED OSTEOARTHRITIS, UNSPECIFIED 09/12/2019 LENNY REED MD, Ot N32.8 1 OVERACTIVE BLADDER 09/12/2019 LENNY REED MD, Ot N36.4 2 INTRINSIC SPHINCTER DEFICIENCY (ISD) 09/12/2019 LENNY REED MD, Ot N39.4 6 MIXED INCONTINENCE 09/12/2019 LENNY REED MD, Ot Z68.3 8 BODY MASS INDEX (BMI) 38.0-38.9, ADULT 09/12/2019 LENNY REED MD, Ot Z79.0 2 SERVICE AND REPAIR SUPERVISOR (CURRENT) USE OF ANTITHROMBOTI 09/12/2019 LENNY REED MD, Ot Z79.5 1 PENITENTIARY (CURRENT) USE OF INHALED STERO 09/12/2019 LENNY REED MD, Ot Z88.0 ALLERGY STATUS TO PENICILLIN 09/12/2019 LENNY REED MD, Ot Z88.2 ALLERGY STATUS TO SULFONAMIDES STATUS 09/12/2019 LENNY REED MD, Ot Z88.8 ALLERGY STATUS TO OTH DRUG/MEDS/BIOL SUB 09/12/2019 LENNY REED MD, Ot Z90.7 10 ACQUIRED ABSENCE OF BOTH [place]ERV[place] AND UTER 09/12/2019 LENNY REED MD, Ot Z91.0 48 OTHER NONMEDICINAL SUBSTANCE ALLERGY STA 09/12/2019 LENNY REED MD, Ot Z95.5 PRESENCE OF CORONARY ANGIOPLASTY IMPLANT 09/12/2019 LENNY REED MD, Ot Z99.8 1 DEPENDENCE ON SUPPLEMENTAL OXYGEN 09/24/2019 LENNY REED MD, Ot E66.0 1 MORBID (SEVERE) OBESITY DUE TO EXCESS CA 09/24/2019 LENNY REED MD, Ot F32.9 MAJOR DEPRESSIVE DISORDER, SINGLE EPISOD 09/24/2019 LENNY REED MD, Ot F41.9 ANXIETY DISORDER, UNSPECIFIED 09/24/2019 LENNY REED MD, Ot I10 ESSENTIAL (PRIMARY) HYPERTENSION 09/24/2019 LENNY REED MD, Ot I25.1 0 ATHSCL HEART DISEASE OF [place] CORONARY 09/24/2019 LENNY REED MD, Ot I48.9 1 UNSPECIFIED ATRIAL FIBRILLATION 09/24/2019 LENNY REED MD, Ot J44.9 CHRONIC OBSTRUCTIVE PULMONARY DISEASE, U 09/24/2019 LENNY REED MD, Ot K21.9 GASTRO-ESOPHAGEAL REFLUX DISEASE WITHOUT 09/24/2019 LENNY REED MD, Ot M19.9 0 UNSPECIFIED OSTEOARTHRITIS, UNSPECIFIED 09/24/2019 LENNY REED MD, Ot N32.8 1 OVERACTIVE BLADDER 09/24/2019 LENNY REED MD, Ot N36.4 2 INTRINSIC SPHINCTER DEFICIENCY (ISD) 09/24/2019 LENNY REED MD, Ot N39.4 6 MIXED INCONTINENCE 09/24/2019 LENNY REED MD, Ot Z68.3 8 BODY MASS INDEX (BMI) 38.0-38.9, ADULT 09/24/2019 LENNY REED MD, Ot Z79.0 2 PENITENTIARY (CURRENT) USE OF ANTITHROMBOTI 09/24/2019 LENNY REED MD, Ot Z79.5 1 SERVICE AND REPAIR SUPERVISOR (CURRENT) USE OF INHALED STERO 09/24/2019 LENNY REED MD, Ot Z88.0 ALLERGY STATUS TO PENICILLIN 09/24/2019 LENNY REED MD, Ot Z88.2 ALLERGY STATUS TO SULFONAMIDES STATUS 09/24/2019 LENNY REED MD Ot Z88.8 ALLERGY STATUS TO OTH DRUG/MEDS/BIOL SUB 09/24/2019 LENNY REED MD, Ot Z90.7 10 ACQUIRED ABSENCE OF BOTH CERVIX AND UTER 09/24/2019 LENNY REED MD, Ot Z91.0 48 OTHER NONMEDICINAL SUBSTANCE ALLERGY STA 09/24/2019 LENNY REED MD, Ot Z95.5 PRESENCE OF CORONARY ANGIOPLASTY IMPLANT 09/24/2019 LENNY REED MD Ot Z99.8 1 DEPENDENCE ON SUPPLEMENTAL OXYGEN 10/14/2019 LENNY REED MD Ot N20.0 CALCULUS OF KIDNEY 11/27/2019 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 Ot I1 0 ESSENTIAL (PRIMARY) HYPERTENSION 11/27/2019 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 Ot I48.20 CHRONIC ATRIAL FIBRILLATION, UNSPECIFIED 11/27/2019 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 Ot R00.2 PALPITATIONS 11/27/2019 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 Ot R06.09 OTHER FORMS OF DYSPNEA 11/27/2019 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 Ot R53.83 OTHER FATIGUE 12/16/2019 NAYE MCCABE LYE PEEL OPERATOR Ot R59.0 LOCALIZED ENLARGED LYMPH NODES 12/16/2019 NAYE MCCABE LYE PEEL OPERATOR Ot 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AL, AORTIC 12/16/2019 NAYE MCCABE LYE PEEL OPERATOR Ot R06.09 OTHER FORMS OF DYSPNEA 12/16/2019 NAYE MCCABE LYE PEEL OPERATOR Ot J90 PLEURAL EFFUSION, NOT ELSEWHERE CLASSIFI 12/16/2019 NAYE MCCABE LYE PEEL OPERATOR Ot R59.0 LOCALIZED ENLARGED LYMPH NODES 12/16/2019 NAYE MCCABE LYE PEEL OPERATOR Ot I51.7 CARDIOMEGALY 12/16/2019 NAYE MCCABE LYE PEEL OPERATOR Ot J44.9 CHRONIC OBSTRUCTIVE PULMONARY DISEASE, U 12/16/2019 NAYE MCCABE LYE PEEL OPERATOR Ot J96.20 ACUTE AND CHR RESP FAILURE, UNSP W HYPOX 12/16/2019 NAYE MCCABE LYE PEEL OPERATOR Ot J98.4 OTHER DISORDERS OF LUNG 12/16/2019 NAYE MCCABE LYE PEEL OPERATOR Ot R59.0 LOCALIZED ENLARGED LYMPH NODES 12/16/2019 ANGELITO CHU MD Ot N28.89 OTHER SPECIFIED DISORDERS OF KIDNEY AND 12/16/2019 ANGELITO CHU MD Ot R10.9 UNSPECIFIED ABDOMINAL PAIN 12/16/2019 ANGELITO CHU MD Ot Z98.890 OTHER SPECIFIED POSTPROCEDURAL STATES 12/16/2019 ANGELITO CHU MD Ot K57.30 DVRTCLOS OF LG INT W/O PERFORATION OR AB 12/16/2019 LENNY REED MD Ot N20.0 CALCULUS OF KIDNEY 12/16/2019 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 Ot I1 0 ESSENTIAL (PRIMARY) HYPERTENSION 12/16/2019 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 Ot I48.20 CHRONIC ATRIAL FIBRILLATION, UNSPECIFIED 12/16/2019 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 Ot R00.2 PALPITATIONS 12/16/2019 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 Ot R06.09 OTHER FORMS OF DYSPNEA 12/16/2019 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 Ot R53.83 OTHER FATIGUE 12/18/2019 LENNY REED MD Ot N20.0 CALCULUS OF KIDNEY 12/18/2019 LENNY REED MD Ot Z01.8 18 ENCOUNTER FOR OTHER PREPROCEDURAL EXAMIN 12/18/2019 NAYE MCCABE APRN Ot R59.0 LOCALIZED ENLARGED LYMPH NODES 12/18/2019 NAYE MCCABE APRN Ot 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AL, AORTIC 12/18/2019 NAYE MCCABE APRN Ot R06.09 OTHER FORMS OF DYSPNEA 12/18/2019 NAYE MCCABE APRN Ot J90 PLEURAL EFFUSION, NOT ELSEWHERE CLASSIFI 12/18/2019 NAYE MCCABE APRN Ot R59.0 LOCALIZED ENLARGED LYMPH NODES 12/18/2019 NAYE MCCABE APRN Ot I51.7 CARDIOMEGALY 12/18/2019 NAYE MCCABE APRN Ot J44.9 CHRONIC OBSTRUCTIVE PULMONARY DISEASE, U 12/18/2019 NAYE MCCABE APRN Ot J96.20 ACUTE AND CHR RESP FAILURE, UNSP W HYPOX 12/18/2019 NAYE MCCABE LYE PEEL OPERATOR Ot J98.4 OTHER DISORDERS OF LUNG 12/18/2019 ESTELLE, NAYE E LYE PEEL OPERATOR Ot R59.0 LOCALIZED ENLARGED LYMPH NODES 12/18/2019 ANGELITO CHU MD Ot N28.89 OTHER SPECIFIED DISORDERS OF KIDNEY AND 12/18/2019 ANGELITO CHU MD Ot R10.9 UNSPECIFIED ABDOMINAL PAIN 12/18/2019 ANGELITO CHU MD Ot Z98.890 OTHER SPECIFIED POSTPROCEDURAL STATES 12/18/2019 ANGELITO CHU MD Ot K57.30 DVRTCLOS OF LG INT W/O PERFORATION OR AB 12/18/2019 DEREK GIL, LENNY Moore Ot N20.0 CALCULUS OF KIDNEY 12/18/2019 ALFREDO CARPENTERAE L POWER TRANSFORMER REPAIR SUPERVISOR Ot I1 0 ESSENTIAL (PRIMARY) HYPERTENSION 12/18/2019 PAULINE JUNIOR L POWER TRANSFORMER REPAIR SUPERVISOR Ot I48.20 CHRONIC ATRIAL FIBRILLATION, UNSPECIFIED 12/18/2019 ALFREDO CARPENTERAE L POWER TRANSFORMER REPAIR SUPERVISOR Ot R00.2 PALPITATIONS 12/18/2019 ALFREDO CARPENTERAE L POWER TRANSFORMER REPAIR SUPERVISOR Ot R06.09 OTHER FORMS OF DYSPNEA 12/18/2019 PAULINE JUNIOR L POWER TRANSFORMER REPAIR SUPERVISOR Ot R53.83 OTHER FATIGUE 12/22/2019 DEREK GIL, LENNY Moore Ot Z01.8 18 ENCOUNTER FOR OTHER PREPROCEDURAL EXAMIN 12/23/2019 PAULINE JUNIOR L POWER TRANSFORMER REPAIR SUPERVISOR Ot I1 0 ESSENTIAL (PRIMARY) HYPERTENSION 12/23/2019 PAULINE JUNIOR L POWER TRANSFORMER REPAIR SUPERVISOR Ot I48.20 CHRONIC ATRIAL FIBRILLATION, UNSPECIFIED 12/23/2019 PAULINE JUNIOR L POWER TRANSFORMER REPAIR SUPERVISOR Ot R00.2 PALPITATIONS 12/23/2019 PAULINE JUNIOR L POWER TRANSFORMER REPAIR SUPERVISOR Ot R06.09 OTHER FORMS OF DYSPNEA 12/23/2019 PAULINE JUNIOR L POWER TRANSFORMER REPAIR SUPERVISOR Ot R53.83 OTHER FATIGUE 01/29/2020 NAYE MCCABE LYE PEEL OPERATOR Ot R59.0 LOCALIZED ENLARGED LYMPH NODES 01/29/2020 NAYE MCCABE LYE PEEL OPERATOR Ot 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AL, AORTIC 01/29/2020 NAYE MCCABE LYE PEEL OPERATOR Ot R06.09 OTHER FORMS OF DYSPNEA 01/29/2020 NAYE MCCABE LYE PEEL OPERATOR Ot J90 PLEURAL EFFUSION, NOT ELSEWHERE CLASSIFI 01/29/2020 NAYE MCCABE LYE PEEL OPERATOR Ot R59.0 LOCALIZED ENLARGED LYMPH NODES 01/29/2020 NAYE MCCABE LYE PEEL OPERATOR Ot I51.7 CARDIOMEGALY 01/29/2020 NAYE MCCABE LYE PEEL OPERATOR Ot J44.9 CHRONIC OBSTRUCTIVE PULMONARY DISEASE, U 01/29/2020 NAYE MCCABE LYE PEEL OPERATOR Ot J96.20 ACUTE AND CHR RESP FAILURE, UNSP W HYPOX 01/29/2020 NAYE MCCABE LYE PEEL OPERATOR Ot J98.4 OTHER DISORDERS OF LUNG 01/29/2020 NAYE MCCABE LYE PEEL OPERATOR Ot R59.0 LOCALIZED ENLARGED LYMPH NODES 01/29/2020 VLAD GIL, ANGELITO Xiao Ot N28.89 OTHER SPECIFIED DISORDERS OF KIDNEY AND 01/29/2020 ANGELITO CHU MD Ot R10.9 UNSPECIFIED ABDOMINAL PAIN 01/29/2020 ANGELITO CHU MD Ot Z98.890 OTHER SPECIFIED POSTPROCEDURAL STATES 01/29/2020 ANGELITO CHU MD Ot K57.30 DVRTCLOS OF LG INT W/O PERFORATION OR AB 01/29/2020 DEREK GIL, LENNY Moore Ot N20.0 CALCULUS OF KIDNEY 01/29/2020 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 Ot I1 0 ESSENTIAL (PRIMARY) HYPERTENSION 01/29/2020 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 Ot I48.20 CHRONIC ATRIAL FIBRILLATION, UNSPECIFIED 01/29/2020 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 Ot R00.2 PALPITATIONS 01/29/2020 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 Ot R06.09 OTHER FORMS OF DYSPNEA 01/29/2020 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 Ot R53.83 OTHER FATIGUE 03/01/2020 NAYE MCCABE LYE PEEL OPERATOR Ot R59.0 LOCALIZED ENLARGED LYMPH NODES 03/01/2020 NAYE MCCABE LYE PEEL OPERATOR Ot 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AL, AORTIC 03/01/2020 NAYE MCCABE LYE PEEL OPERATOR Ot R06.09 OTHER FORMS OF DYSPNEA 03/01/2020 NAYE MCCABE LYE PEEL OPERATOR Ot J90 PLEURAL EFFUSION, NOT ELSEWHERE CLASSIFI 03/01/2020 NAYE MCCABE LYE PEEL OPERATOR Ot R59.0 LOCALIZED ENLARGED LYMPH NODES 03/01/2020 NAYE MCCABE LYE PEEL OPERATOR Ot I51.7 CARDIOMEGALY 03/01/2020 NAYE MCCABE LYE PEEL OPERATOR Ot J44.9 CHRONIC OBSTRUCTIVE PULMONARY DISEASE, U 03/01/2020 NAYE MCCABE LYE PEEL OPERATOR Ot J96.20 ACUTE AND CHR RESP FAILURE, UNSP W HYPOX 03/01/2020 NAYE MCCABE APRN Ot J98.4 OTHER DISORDERS OF LUNG 03/01/2020 NAYE MCCABE LYE PEEL OPERATOR Ot R59.0 LOCALIZED ENLARGED LYMPH NODES 03/01/2020 ANGELITO CHU MD Ot N28.89 OTHER SPECIFIED DISORDERS OF KIDNEY AND 03/01/2020 ANGELITO CHU MD Ot R10.9 UNSPECIFIED ABDOMINAL PAIN 03/01/2020 ANGELITO CHU MD Ot Z98.890 OTHER SPECIFIED POSTPROCEDURAL STATES 03/01/2020 ANGELITO CHU MD Ot K57.30 DVRTCLOS OF LG INT W/O PERFORATION OR AB 03/01/2020 DEREK GIL, LENNY Moore Ot N20.0 CALCULUS OF KIDNEY 03/01/2020 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 Ot I1 0 ESSENTIAL (PRIMARY) HYPERTENSION 03/01/2020 JUNIOR CARPENTER L POWER TRANSFORMER REPAIR SUPERVISOR Ot I48.20 CHRONIC ATRIAL FIBRILLATION, UNSPECIFIED 03/01/2020 JUNIOR CARPENTER L POWER TRANSFORMER REPAIR SUPERVISOR Ot R00.2 PALPITATIONS 03/01/2020 JUNIOR CARPENTER L POWER TRANSFORMER REPAIR SUPERVISOR Ot R06.09 OTHER FORMS OF DYSPNEA 03/01/2020 PAULINE JUNIOR L POWER TRANSFORMER REPAIR SUPERVISOR Ot R53.83 OTHER FATIGUE 03/03/2020 NAYE MCCABE LYE PEEL OPERATOR Ot R59.0 LOCALIZED ENLARGED LYMPH NODES 03/03/2020 NAYE MCCABE LYE PEEL OPERATOR Ot 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AL, AORTIC 03/03/2020 NAYE MCCABE LYE PEEL OPERATOR Ot R06.09 OTHER FORMS OF DYSPNEA 03/03/2020 NAYE MCCABE LYE PEEL OPERATOR Ot J90 PLEURAL EFFUSION, NOT ELSEWHERE CLASSIFI 03/03/2020 NAYE MCCABE LYE PEEL OPERATOR Ot R59.0 LOCALIZED ENLARGED LYMPH NODES 03/03/2020 NAYE MCCABE LYE PEEL OPERATOR Ot I51.7 CARDIOMEGALY 03/03/2020 NAYE MCCABE LYE PEEL OPERATOR Ot J44.9 CHRONIC OBSTRUCTIVE PULMONARY DISEASE, U 03/03/2020 NAYE MCCABE LYE PEEL OPERATOR Ot J96.20 ACUTE AND CHR RESP FAILURE, UNSP W HYPOX 03/03/2020 NAYE MCCABE LYE PEEL OPERATOR Ot J98.4 OTHER DISORDERS OF LUNG 03/03/2020 NAYE MCCABE APRN Ot R59.0 LOCALIZED ENLARGED LYMPH NODES 03/03/2020 ANGELITO CHU MD Ot N28.89 OTHER SPECIFIED DISORDERS OF KIDNEY AND 03/03/2020 ANGELITO CHU MD Ot R10.9 UNSPECIFIED ABDOMINAL PAIN 03/03/2020 ANGELITO CHU MD Ot Z98.890 OTHER SPECIFIED POSTPROCEDURAL STATES 03/03/2020 ANGELITO CHU MD Ot K57.30 DVRTCLOS OF LG INT W/O PERFORATION OR AB 03/03/2020 DEREK GIL, LENNY Moore Ot N20.0 CALCULUS OF KIDNEY 03/03/2020 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 Ot I1 0 ESSENTIAL (PRIMARY) HYPERTENSION 03/03/2020 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 Ot I48.20 CHRONIC ATRIAL FIBRILLATION, UNSPECIFIED 03/03/2020 JUNIOR CARPENTER L POWER TRANSFORMER REPAIR SUPERVISOR Ot R00.2 PALPITATIONS 03/03/2020 JUNIOR CARPENTER L POWER TRANSFORMER REPAIR SUPERVISOR Ot R06.09 OTHER FORMS OF DYSPNEA 03/03/2020 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 Ot R53.83 OTHER FATIGUE 03/04/2020 NAYE MCCABE LYE PEEL OPERATOR Ot R59.0 LOCALIZED ENLARGED LYMPH NODES 03/04/2020 NAYE MCCABE LYE PEEL OPERATOR Ot 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AL, AORTIC 03/04/2020 NAYE MCCABE LYE PEEL OPERATOR Ot R06.09 OTHER FORMS OF DYSPNEA 03/04/2020 NAYE MCCABE LYE PEEL OPERATOR Ot J90 PLEURAL EFFUSION, NOT ELSEWHERE CLASSIFI 03/04/2020 NAYE MCCABE LYE PEEL OPERATOR Ot R59.0 LOCALIZED ENLARGED LYMPH NODES 03/04/2020 NAYE MCCABE LYE PEEL OPERATOR Ot I51.7 CARDIOMEGALY 03/04/2020 NAYE MCCABE LYE PEEL OPERATOR Ot J44.9 CHRONIC OBSTRUCTIVE PULMONARY DISEASE, U 03/04/2020 NAYE MCCABE LYE PEEL OPERATOR Ot J96.20 ACUTE AND CHR RESP FAILURE, UNSP W HYPOX 03/04/2020 NAYE MCCABE LYE PEEL OPERATOR Ot J98.4 OTHER DISORDERS OF LUNG 03/04/2020 NAYE MCCABE APRN Ot R59.0 LOCALIZED ENLARGED LYMPH NODES 03/04/2020 ANGELITO CHU MD Ot N28.89 OTHER SPECIFIED DISORDERS OF KIDNEY AND 03/04/2020 ANGELITO CHU MD Ot R10.9 UNSPECIFIED ABDOMINAL PAIN 03/04/2020 ANGELITO CHU MD Ot Z98.890 OTHER SPECIFIED POSTPROCEDURAL STATES 03/04/2020 ANGELITO CHU MD Ot K57.30 DVRTCLOS OF LG INT W/O PERFORATION OR AB 03/04/2020 DEREK GIL, LENNY Moore Ot N20.0 CALCULUS OF KIDNEY 03/04/2020 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 Ot I1 0 ESSENTIAL (PRIMARY) HYPERTENSION 03/04/2020 JUNIOR CARPENTER L POWER TRANSFORMER REPAIR SUPERVISOR Ot I48.20 CHRONIC ATRIAL FIBRILLATION, UNSPECIFIED 03/04/2020 JUNIOR CARPENTER L POWER TRANSFORMER REPAIR SUPERVISOR Ot R00.2 PALPITATIONS 03/04/2020 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 Ot R06.09 OTHER FORMS OF DYSPNEA 03/04/2020 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 Ot R53.83 OTHER FATIGUE 03/04/2020 DEREK GIL, LENNY Moore Ot N20.0 CALCULUS OF KIDNEY 03/04/2020 NAYE MCCABE APRN Ot R59.0 LOCALIZED ENLARGED LYMPH NODES 03/04/2020 NAYE MCCABE APRN Ot 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AL, AORTIC 03/04/2020 NAYE MCCBAE LYE PEEL OPERATOR Ot R06.09 OTHER FORMS OF DYSPNEA 03/04/2020 NAYE MCCABE LYE PEEL OPERATOR Ot J90 PLEURAL EFFUSION, NOT ELSEWHERE CLASSIFI 03/04/2020 NAYE MCCABE LYE PEEL OPERATOR Ot R59.0 LOCALIZED ENLARGED LYMPH NODES 03/04/2020 NAYE MCCABE LYE PEEL OPERATOR Ot I51.7 CARDIOMEGALY 03/04/2020 NAYE MCCABE APRN Ot J44.9 CHRONIC OBSTRUCTIVE PULMONARY DISEASE, U 03/04/2020 NAYE MCCABE LYE PEEL OPERATOR Ot J96.20 ACUTE AND CHR RESP FAILURE, UNSP W HYPOX 03/04/2020 NAYE MCCABE LYE PEEL OPERATOR Ot J98.4 OTHER DISORDERS OF LUNG 03/04/2020 NAYE MCCABE APRN Ot R59.0 LOCALIZED ENLARGED LYMPH NODES 03/04/2020 ANGELITO CHU MD Ot N28.89 OTHER SPECIFIED DISORDERS OF KIDNEY AND 03/04/2020 ANGELITO CHU MD Ot R10.9 UNSPECIFIED ABDOMINAL PAIN 03/04/2020 ANGELITO CHU MD Ot Z98.890 OTHER SPECIFIED POSTPROCEDURAL STATES 03/04/2020 ANGELITO CHU MD Ot K57.30 DVRTCLOS OF LG INT W/O PERFORATION OR AB 03/04/2020 DEREK GIL, LENNY Moore Ot N20.0 CALCULUS OF KIDNEY 03/04/2020 JUNIOR CARPENTER L POWER TRANSFORMER REPAIR SUPERVISOR Ot I1 0 ESSENTIAL (PRIMARY) HYPERTENSION 03/04/2020 ALFREDO CARPENTERAE L POWER TRANSFORMER REPAIR SUPERVISOR Ot I48.20 CHRONIC ATRIAL FIBRILLATION, UNSPECIFIED 03/04/2020 PAULINE JUNIOR L POWER TRANSFORMER REPAIR SUPERVISOR Ot R00.2 PALPITATIONS 03/04/2020 PAULINE JUNIOR L POWER TRANSFORMER REPAIR SUPERVISOR Ot R06.09 OTHER FORMS OF DYSPNEA 03/04/2020 PAULINE JUNIOR L POWER TRANSFORMER REPAIR SUPERVISOR Ot R53.83 OTHER FATIGUE Procedures Code Description Performed By Per formed On [id number] RE SPIRATORY VENTILATION, LESS THAN 24 CO 05/31/2018 Results Test Result Range Sputum Gram stain - 03/14/17 07:45 GRAM STAIN SPUTUM AND MIXED BACTERIAL MARIA T NRG Bacteria identification in bronchial spe cimen by aerobe culture - 03/14/17 07:45 QUANTITY OF GROWTH Moderate Growth NRG Bacteria identification in bronchial specimen by aerob e culture [id number] NRG FREE TEXT ENTRY 2 PLUS NORMAL MARIA T NRG Sputum Gram stain - 03/14/17 07:45 Sputum Gram stain OCCASIONAL WBC, NO BACTERIA OBSE RVED NRG Bacteria identification in bronchial spe cimen by aerobe culture - 03/14/17 07:45 Bacteria identification in bronchial specimen by aerob e culture NORMAL NRG Mycobacterium species detection by organ ism specific culture - 03/14/17 07:45 Mycobacterium species detection by organism specific c ulture FOOTNOTE NRG Fungus culture - 03/14/17 07:45 FUNGUS REPORT NO FUNGUS GROWTH OBSERVED NRG Fungus culture - 03/14/17 07:45 FUNGUS REPORT NO FUNGUS GROWTH OBSERVED NRG Bacterial blood culture - 07/10/17 11:10 Bacterial blood culture NG NRG Complete blood count (CBC) with automate d white blood cell (WBC) differential - 07/10/17 11:15 Blood leukocytes automated count (number/volume) 8.6 10*3/uL 4.3-11.0 Blood erythrocytes automated count (number/volume) 4.95 10*6/uL 4.35-5.85 Venous blood hemoglobin measurement (mass/volume) 13.8 g/dL 11.5-16.0 Blood hematocrit (volume fraction) 42 % 35-52 Automated erythrocyte mean corpuscular volume 85 [ foz_us] 80-99 Automated erythrocyte mean corpuscular h emoglobin (mass per erythrocyte) 28 pg 25-34 Automated erythrocyte mean corpuscular h emoglobin concentration measurement (mass/volume) 33 g/dL 32-36 Automated erythrocyte distribution width ratio 15. 1 % 10.0- 14.5 Automated blood platelet count (count/volume) 195 10*3/uL 130-400 Automated blood platelet mean volume measurement 11.4 [foz_us] 7.4-10.4 Automated blood neutrophils/100 leukocytes 63 % 42-75 Automated blood lymphocytes/100 leukocytes 28 % 12-44 Blood monocytes/100 leukocytes 6 % 0-12 Automated blood eosinophils/100 leukocytes 3 % 0-10 Automated blood basophils/100 leukocytes 1 % 0-10 Blood neutrophils automated count (number/volume) 5.4 10*3 1.8-7.8 Blood lymphocytes automated count (number/volume) 2.4 10*3 1.0-4.0 Blood monocytes automated count (number/volume) 0. 5 10*3 0.0-1.0 Automated eosinophil count 0.3 10*3/uL 0 .0-0.3 Automated blood basophil count (count/volume) 0.0 10*3/uL 0.0-0.1 PT panel in platelet poor plasma by coag ulation assay - 07/10/17 11:15 Prothrombin time (PT) in platelet poor plasma by coagu lation assay 14.4 s 12.2-14.7 INR in platelet poor plasma or blood by coagulation as say 1.1 0.8-1.4 Activated partial thromboplastin time (a PTT) in platelet poor plasma bycoagulation assay - 07/10/17 11:15 Activated partial thromboplastin time (a PTT) in platelet poor plasma bycoagulation assay 29 s 24-35 Comprehensive metabolic panel - 07/10/17 11:15 Serum or plasma sodium measurement (moles/volume) 143 mmol/L 135-145 Serum or plasma potassium measurement (moles/volume) 3.5 mmol/L 3.6-5.0 Serum or plasma chloride measurement (moles/volume) 110 mmol/L 98-107 Carbon dioxide 23 mmol/L 21-32 Serum or plasma anion gap determination (moles/volume) 10 mmol/L 5-14 Serum or plasma urea nitrogen measurement (mass/volume ) 11 mg/dL 7-18 Serum or plasma creatinine measurement (mass/volume) 0.72 mg/dL 0.60-1.30 Serum or plasma urea nitrogen/creatinine mass ratio 15 NRG Serum or plasma creatinine measurement w ith calculation of estimated glomerular filtration rate > NRG Serum or plasma glucose measurement (mass/volume) 96 mg/dL 70-105 Serum or plasma calcium measurement (mass/volume) 9.5 mg/dL 8.5-10.1 Serum or plasma total bilirubin measurement (mass/volu me) 1.0 mg/dL 0.1-1.0 Serum or plasma alkaline phosphatase grey surement (enzymatic activity/volume) 52 U/L 40-136 Serum or plasma aspartate aminotransfera se measurement (enzymatic activity/volume) 20 U/L 5-34 Serum or plasma alanine aminotransferase measurement (enzymatic activity/volume) 16 U/L 0-55 Serum or plasma protein measurement (mass/volume) 6.5 g/dL 6.4-8.2 Serum or plasma albumin measurement (mass/volume) 3.8 g/dL 3.2-4.5 Bacterial blood culture - 07/10/17 11:15 Bacterial blood culture NG NRG Bacterial blood culture - 07/10/17 11:25 Bacterial blood culture NG NRG Complete urinalysis with reflex to cultu re - 07/10/17 12:13 Urine color determination YELLOW NRG Urine clarity determination CLEAR NR G Urine pH measurement by test strip 7 5-9 Specific gravity of urine by test strip 1.015 1.016-1.022 Urine protein assay by test strip, semi-quantitative 2+ NEGATIVE Urine glucose detection by automated test strip NE GATIVE NEGATIVE Erythrocytes detection in urine sediment by light micr oscopy 1+ NEGATIVE Urine ketones detection by automated test strip NE GATIVE NEGATIVE Urine nitrite detection by test strip NEGATIVE NEGATIVE Urine total bilirubin detection by test strip NEGA TIVE NEGATIVE Urine urobilinogen measurement by automated test strip (mass/volume) NORMAL NORMAL Urine leukocyte esterase detection by dipstick 3+ NEGATIVE Automated urine sediment erythrocyte cou nt by microscopy (number/high power field) RARE NRG Automated urine sediment leukocyte count by microscopy (number/high power field) [HPF] NRG Bacteria detection in urine sediment by light microsco py FEW NRG Squamous epithelial cells detection in u rine sediment by light microscopy 10-25 NRG Crystals detection in urine sediment by light microsco py NONE NRG Casts detection in urine sediment by light microscopy NONE NRG Mucus detection in urine sediment by light microscopy NEGATIVE NRG Complete urinalysis with reflex to culture YES NRG Bacterial urine culture - 07/10/17 12:13 URINE CULTURE RESULTS IF STILL NEED. NR G Serum or plasma lithium measurement (mol es/volume) - 07/11/17 09:57 BNP level 719.3 pg/mL <100.0 Complete blood count (CBC) with automate d white blood cell (WBC) differential - 07/12/17 05:27 Blood leukocytes automated count (number/volume) 12.4 10*3/uL 4.3-11.0 Blood erythrocytes automated count (number/volume) 4.79 10*6/uL 4.35-5.85 Venous blood hemoglobin measurement (mass/volume) 13.4 g/dL 11.5-16.0 Blood hematocrit (volume fraction) 41 % 35-52 Automated erythrocyte mean corpuscular volume 86 [ foz_us] 80-99 Automated erythrocyte mean corpuscular h emoglobin (mass per erythrocyte) 28 pg 25-34 Automated erythrocyte mean corpuscular h emoglobin concentration measurement (mass/volume) 32 g/dL 32-36 Automated erythrocyte distribution width ratio 15. 3 % 10.0- 14.5 Automated blood platelet count (count/volume) 177 10*3/uL 130-400 Automated blood platelet mean volume measurement 12.3 [foz_us] 7.4-10.4 Automated blood neutrophils/100 leukocytes 89 % 42-75 Automated blood lymphocytes/100 leukocytes 9 % 12-44 Blood monocytes/100 leukocytes 2 % 0-12 Automated blood eosinophils/100 leukocytes 0 % 0-10 Automated blood basophils/100 leukocytes 0 % 0-10 Blood neutrophils automated count (number/volume) 11.1 10*3 1.8-7.8 Blood lymphocytes automated count (number/volume) 1.1 10*3 1.0-4.0 Blood monocytes automated count (number/volume) 0. 2 10*3 0.0-1.0 Automated eosinophil count 0.0 10*3/uL 0 .0-0.3 Automated blood basophil count (count/volume) 0.0 10*3/uL 0.0-0.1 Comprehensive metabolic panel - 07/12/17 05:27 Serum or plasma sodium measurement (moles/volume) 141 mmol/L 135-145 Serum or plasma potassium measurement (moles/volume) 3.8 mmol/L 3.6-5.0 Serum or plasma chloride measurement (moles/volume) 111 mmol/L 98-107 Carbon dioxide 20 mmol/L 21-32 Serum or plasma anion gap determination (moles/volume) 10 mmol/L 5-14 Serum or plasma urea nitrogen measurement (mass/volume ) 22 mg/dL 7-18 Serum or plasma creatinine measurement (mass/volume) 0.91 mg/dL 0.60-1.30 Serum or plasma urea nitrogen/creatinine mass ratio 24 NRG Serum or plasma creatinine measurement w ith calculation of estimated glomerular filtration rate > NRG Serum or plasma glucose measurement (mass/volume) 165 mg/dL 70-105 Serum or plasma calcium measurement (mass/volume) 9.0 mg/dL 8.5-10.1 Serum or plasma total bilirubin measurement (mass/volu me) 0.5 mg/dL 0.1-1.0 Serum or plasma alkaline phosphatase grey surement (enzymatic activity/volume) 50 U/L 40-136 Serum or plasma aspartate aminotransfera se measurement (enzymatic activity/volume) 15 U/L 5-34 Serum or plasma alanine aminotransferase measurement (enzymatic activity/volume) 17 U/L 0-55 Serum or plasma protein measurement (mass/volume) 6.0 g/dL 6.4-8.2 Serum or plasma albumin measurement (mass/volume) 3.7 g/dL 3.2-4.5 Magnesium - 07/12/17 05:27 Magnesium 1.8 mg/dL 1.8-2.4 THYROID STIMULATING HORMONE - 07/12/17 0 5:27 THYROID STIMULATING HORMONE 0.27 u[iU]/mL 0.35-4.94 Complete blood count (CBC) with automate d white blood cell (WBC) differential - 07/15/17 05:45 Blood leukocytes automated count (number/volume) 9.5 10*3/uL 4.3-11.0 Blood erythrocytes automated count (number/volume) 5.08 10*6/uL 4.35-5.85 Venous blood hemoglobin measurement (mass/volume) 14.2 g/dL 11.5-16.0 Blood hematocrit (volume fraction) 44 % 35-52 Automated erythrocyte mean corpuscular volume 86 [ foz_us] 80-99 Automated erythrocyte mean corpuscular h emoglobin (mass per erythrocyte) 28 pg 25-34 Automated erythrocyte mean corpuscular h emoglobin concentration measurement (mass/volume) 33 g/dL 32-36 Automated erythrocyte distribution width ratio 14. 8 % 10.0- 14.5 Automated blood platelet count (count/volume) 197 10*3/uL 130-400 Automated blood platelet mean volume measurement 11.4 [foz_us] 7.4-10.4 Automated blood neutrophils/100 leukocytes 85 % 42-75 Automated blood lymphocytes/100 leukocytes 11 % 12-44 Blood monocytes/100 leukocytes 4 % 0-12 Automated blood eosinophils/100 leukocytes 0 % 0-10 Automated blood basophils/100 leukocytes 0 % 0-10 Blood neutrophils automated count (number/volume) 8.1 10*3 1.8-7.8 Blood lymphocytes automated count (number/volume) 1.1 10*3 1.0-4.0 Blood monocytes automated count (number/volume) 0. 3 10*3 0.0-1.0 Automated eosinophil count 0.0 10*3/uL 0 .0-0.3 Automated blood basophil count (count/volume) 0.0 10*3/uL 0.0-0.1 Whole blood basic metabolic panel - 06/29 05/14 05:45 Serum or plasma sodium measurement (moles/volume) 141 mmol/L 135-145 Serum or plasma potassium measurement (moles/volume) 3.7 mmol/L 3.6-5.0 Serum or plasma chloride measurement (moles/volume) 102 mmol/L 98-107 Carbon dioxide 29 mmol/L 21-32 Serum or plasma anion gap determination (moles/volume) 10 mmol/L 5-14 Serum or plasma urea nitrogen measurement (mass/volume ) 23 mg/dL 7-18 Serum or plasma creatinine measurement (mass/volume) 0.78 mg/dL 0.60-1.30 Serum or plasma urea nitrogen/creatinine mass ratio 29 NRG Serum or plasma creatinine measurement w ith calculation of estimated glomerular filtration rate > NRG Serum or plasma glucose measurement (mass/volume) 166 mg/dL 70-105 Serum or plasma calcium measurement (mass/volume) 9.4 mg/dL 8.5-10.1 Magnesium - 07/15/17 05:45 Magnesium 2.2 mg/dL 1.8-2.4 Serum or plasma lithium measurement (mol es/volume) - 07/15/17 05:45 BNP level 508.9 pg/mL <100.0 Complete blood count (CBC) with automate d white blood cell (WBC) differential - 07/17/17 05:15 Blood leukocytes automated count (number/volume) 12.2 10*3/uL 4.3-11.0 Blood erythrocytes automated count (number/volume) 5.37 10*6/uL 4.35-5.85 Venous blood hemoglobin measurement (mass/volume) 14.9 g/dL 11.5-16.0 Blood hematocrit (volume fraction) 46 % 35-52 Automated erythrocyte mean corpuscular volume 86 [ foz_us] 80-99 Automated erythrocyte mean corpuscular h emoglobin (mass per erythrocyte) 28 pg 25-34 Automated erythrocyte mean corpuscular h emoglobin concentration measurement (mass/volume) 32 g/dL 32-36 Automated erythrocyte distribution width ratio 14. 5 % 10.0- 14.5 Automated blood platelet count (count/volume) 223 10*3/uL 130-400 Automated blood platelet mean volume measurement 11.3 [foz_us] 7.4-10.4 Automated blood neutrophils/100 leukocytes 85 % 42-75 Automated blood lymphocytes/100 leukocytes 12 % 12-44 Blood monocytes/100 leukocytes 3 % 0-12 Automated blood eosinophils/100 leukocytes 0 % 0-10 Automated blood basophils/100 leukocytes 0 % 0-10 Blood neutrophils automated count (number/volume) 10.3 10*3 1.8-7.8 Blood lymphocytes automated count (number/volume) 1.5 10*3 1.0-4.0 Blood monocytes automated count (number/volume) 0. 4 10*3 0.0-1.0 Automated eosinophil count 0.0 10*3/uL 0 .0-0.3 Automated blood basophil count (count/volume) 0.0 10*3/uL 0.0-0.1 Whole blood basic metabolic panel - 06/29 07/15 05:15 Serum or plasma sodium measurement (moles/volume) 141 mmol/L 135-145 Serum or plasma potassium measurement (moles/volume) 3.9 mmol/L 3.6-5.0 Serum or plasma chloride measurement (moles/volume) 99 mmol/L 98-107 Carbon dioxide 31 mmol/L 21-32 Serum or plasma anion gap determination (moles/volume) 11 mmol/L 5-14 Serum or plasma urea nitrogen measurement (mass/volume ) 31 mg/dL 7-18 Serum or plasma creatinine measurement (mass/volume) 0.85 mg/dL 0.60-1.30 Serum or plasma urea nitrogen/creatinine mass ratio 36 NRG Serum or plasma creatinine measurement w ith calculation of estimated glomerular filtration rate > NRG Serum or plasma glucose measurement (mass/volume) 169 mg/dL 70-105 Serum or plasma calcium measurement (mass/volume) 9.4 mg/dL 8.5-10.1 Serum or plasma thyroxine (T4) free jose j urement (mass/volume) - 07/17/17 05:15 Serum or plasma thyroxine (T4) free measurement (mass/ volume) 0.76 ng/dL 0.70-1.48 Arterial blood gas measurement - 7 15:50 Blood pCO2 32 mm[Hg] 35-45 Blood pO2 83 mm[Hg] 79-93 Arterial blood bicarbonate measurement (moles/volume) 22 mmol/L 23-27 Arterial blood base excess by calculation -1.5 mmo l/L -2.5-2.5 Arterial blood oxygen saturation measurement 98 % 94-100 * Inhaled oxygen flow rate ROOM AIR NRG Arterial blood pH measurement with patient temperature correction 7.45 7.37-7.43 Arterial blood carbon dioxide, total measurement (mole s/volume) 23.1 mmol/L 21.0-31.0 Body site LT RAD NRG Assessment of wrist artery patency prior to arterial p uncture YES-POS NRG Setting of ventilation mode NO NR G Measurement of body temperature 96.6 NRG Automated blood complete blood count (he mogram) panel - 05/28/18 05:16 Blood leukocytes automated count (number/volume) 9.4 10*3/uL 4.3-11.0 Blood erythrocytes automated count (number/volume) 4.62 10*6/uL 4.35-5.85 Venous blood hemoglobin measurement (mass/volume) 13.0 g/dL 11.5-16.0 Blood hematocrit (volume fraction) 40 % 35-52 Automated erythrocyte mean corpuscular volume 86 [ foz_us] 80-99 Automated erythrocyte mean corpuscular h emoglobin (mass per erythrocyte) 28 pg 25-34 Automated erythrocyte mean corpuscular h emoglobin concentration measurement (mass/volume) 33 g/dL 32-36 Automated erythrocyte distribution width ratio 16. 5 % 10.0- 14.5 Automated blood platelet count (count/volume) 190 10*3/uL 130-400 Automated blood platelet mean volume measurement 10.7 [foz_us] 7.4-10.4 Comprehensive metabolic panel - 05/28/18 05:16 Serum or plasma sodium measurement (moles/volume) 139 mmol/L 135-145 Serum or plasma potassium measurement (moles/volume) 3.5 mmol/L 3.6-5.0 Serum or plasma chloride measurement (moles/volume) 104 mmol/L 98-107 Carbon dioxide 26 mmol/L 21-32 Serum or plasma anion gap determination (moles/volume) 9 mmol/L 5-14 Serum or plasma urea nitrogen measurement (mass/volume ) 18 mg/dL 7-18 Serum or plasma creatinine measurement (mass/volume) 0.72 mg/dL 0.60-1.30 Serum or plasma urea nitrogen/creatinine mass ratio 25 NRG Serum or plasma creatinine measurement w ith calculation of estimated glomerular filtration rate > NRG Serum or plasma glucose measurement (mass/volume) 127 mg/dL 70-105 Serum or plasma calcium measurement (mass/volume) 9.4 mg/dL 8.5-10.1 Serum or plasma total bilirubin measurement (mass/volu me) 0.5 mg/dL 0.1-1.0 Serum or plasma alkaline phosphatase grey surement (enzymatic activity/volume) 51 U/L 40-136 Serum or plasma aspartate aminotransfera se measurement (enzymatic activity/volume) 13 U/L 5-34 Serum or plasma alanine aminotransferase measurement (enzymatic activity/volume) 11 U/L 0-55 Serum or plasma protein measurement (mass/volume) 5.4 g/dL 6.4-8.2 Serum or plasma albumin measurement (mass/volume) 3.4 g/dL 3.2-4.5 Arterial blood gas measurement - 8 10:50 Blood pCO2 46 mm[Hg] 35-45 Blood pO2 95 mm[Hg] 79-93 Arterial blood bicarbonate measurement (moles/volume) 27 mmol/L 23-27 Arterial blood base excess by calculation 2.8 mmol /L -2.5-2.5 Arterial blood oxygen saturation measurement 98 % 94-100 * Inhaled oxygen flow rate 2.5 L NRG Arterial blood pH measurement with patient temperature correction 7.40 7.37-7.43 Arterial blood carbon dioxide, total measurement (mole s/volume) 28.4 mmol/L 21.0-31.0 Body site RT RAD NRG Assessment of wrist artery patency prior to arterial p uncture YES-POS NRG Setting of ventilation mode NO NR G Measurement of body temperature 99.9 NRG Complete blood count (CBC) with automate d white blood cell (WBC) differential - 05/29/18 10:55 Blood leukocytes automated count (number/volume) 17.7 10*3/uL 4.3-11.0 Blood erythrocytes automated count (number/volume) 4.92 10*6/uL 4.35-5.85 Venous blood hemoglobin measurement (mass/volume) 14.2 g/dL 11.5-16.0 Blood hematocrit (volume fraction) 43 % 35-52 Automated erythrocyte mean corpuscular volume 87 [ foz_us] 80-99 Automated erythrocyte mean corpuscular h emoglobin (mass per erythrocyte) 29 pg 25-34 Automated erythrocyte mean corpuscular h emoglobin concentration measurement (mass/volume) 33 g/dL 32-36 Automated erythrocyte distribution width ratio 16. 7 % 10.0- 14.5 Automated blood platelet count (count/volume) 190 10*3/uL 130-400 Automated blood platelet mean volume measurement 10.9 [foz_us] 7.4-10.4 Automated blood neutrophils/100 leukocytes 86 % 42-75 Automated blood lymphocytes/100 leukocytes 7 % 12-44 Blood monocytes/100 leukocytes 5 % 0-12 Automated blood eosinophils/100 leukocytes 3 % 0-10 Automated blood basophils/100 leukocytes 0 % 0-10 Blood neutrophils automated count (number/volume) 15.2 10*3 1.8-7.8 Blood lymphocytes automated count (number/volume) 1.2 10*3 1.0-4.0 Blood monocytes automated count (number/volume) 0. 9 10*3 0.0-1.0 Automated eosinophil count 0.5 10*3/uL 0 .0-0.3 Automated blood basophil count (count/volume) 0.0 10*3/uL 0.0-0.1 Blood manual differential performed dete ction - 05/29/18 10:55 Blood monocytes/100 leukocytes 2 % NRG Manual blood segmented neutrophils/100 leukocytes 88 % NRG Blood band neutrophils/100 leukocytes 0 % NRG Manual blood lymphocytes/100 leukocytes 9 % NRG Manual eosinophils/100 leukocytes in nose 1 % NRG Manual blood basophils/100 leukocytes 0 % NRG Blood erythrocyte morphology finding identification NORMAL NRG Comprehensive metabolic panel - 05/29/18 10:55 Serum or plasma sodium measurement (moles/volume) 142 mmol/L 135-145 Serum or plasma potassium measurement (moles/volume) 3.9 mmol/L 3.6-5.0 Serum or plasma chloride measurement (moles/volume) 107 mmol/L 98-107 Carbon dioxide 26 mmol/L 21-32 Serum or plasma anion gap determination (moles/volume) 9 mmol/L 5-14 Serum or plasma urea nitrogen measurement (mass/volume ) 11 mg/dL 7-18 Serum or plasma creatinine measurement (mass/volume) 0.64 mg/dL 0.60-1.30 Serum or plasma urea nitrogen/creatinine mass ratio 17 NRG Serum or plasma creatinine measurement w ith calculation of estimated glomerular filtration rate > NRG Serum or plasma glucose measurement (mass/volume) 124 mg/dL 70-105 Serum or plasma calcium measurement (mass/volume) 9.5 mg/dL 8.5-10.1 Serum or plasma total bilirubin measurement (mass/volu me) 1.1 mg/dL 0.1-1.0 Serum or plasma alkaline phosphatase grey surement (enzymatic activity/volume) 52 U/L 40-136 Serum or plasma aspartate aminotransfera se measurement (enzymatic activity/volume) 14 U/L 5-34 Serum or plasma alanine aminotransferase measurement (enzymatic activity/volume) 15 U/L 0-55 Serum or plasma protein measurement (mass/volume) 6.5 g/dL 6.4-8.2 Serum or plasma albumin measurement (mass/volume) 4.0 g/dL 3.2-4.5 Serum or plasma troponin i.cardiac measu rement (mass/volume) - 05/29/18 10:55 Serum or plasma troponin i.cardiac measurement (mass/v olume) < ng/mL <0.30 Serum or plasma lithium measurement (mol es/volume) - 05/29/18 10:55 BNP level 307.2 pg/mL <100.0 Complete blood count (CBC) with automate d white blood cell (WBC) differential - 05/30/18 05:43 Blood leukocytes automated count (number/volume) 14.5 10*3/uL 4.3-11.0 Blood erythrocytes automated count (number/volume) 4.91 10*6/uL 4.35-5.85 Venous blood hemoglobin measurement (mass/volume) 13.8 g/dL 11.5-16.0 Blood hematocrit (volume fraction) 42 % 35-52 Automated erythrocyte mean corpuscular volume 86 [ foz_us] 80-99 Automated erythrocyte mean corpuscular h emoglobin (mass per erythrocyte) 28 pg 25-34 Automated erythrocyte mean corpuscular h emoglobin concentration measurement (mass/volume) 33 g/dL 32-36 Automated erythrocyte distribution width ratio 16. 6 % 10.0- 14.5 Automated blood platelet count (count/volume) 198 10*3/uL 130-400 Automated blood platelet mean volume measurement 10.9 [foz_us] 7.4-10.4 Automated blood neutrophils/100 leukocytes 93 % 42-75 Automated blood lymphocytes/100 leukocytes 5 % 12-44 Blood monocytes/100 leukocytes 1 % 0-12 Automated blood eosinophils/100 leukocytes 0 % 0-10 Automated blood basophils/100 leukocytes 0 % 0-10 Blood neutrophils automated count (number/volume) 13.5 10*3 1.8-7.8 Blood lymphocytes automated count (number/volume) 0.8 10*3 1.0-4.0 Blood monocytes automated count (number/volume) 0. 2 10*3 0.0-1.0 Automated eosinophil count 0.0 10*3/uL 0 .0-0.3 Automated blood basophil count (count/volume) 0.0 10*3/uL 0.0-0.1 Comprehensive metabolic panel - 05/30/18 05:43 Serum or plasma sodium measurement (moles/volume) 143 mmol/L 135-145 Serum or plasma potassium measurement (moles/volume) 3.7 mmol/L 3.6-5.0 Serum or plasma chloride measurement (moles/volume) 107 mmol/L 98-107 Carbon dioxide 26 mmol/L 21-32 Serum or plasma anion gap determination (moles/volume) 10 mmol/L 5-14 Serum or plasma urea nitrogen measurement (mass/volume ) 20 mg/dL 7-18 Serum or plasma creatinine measurement (mass/volume) 0.76 mg/dL 0.60-1.30 Serum or plasma urea nitrogen/creatinine mass ratio 26 NRG Serum or plasma creatinine measurement w ith calculation of estimated glomerular filtration rate > NRG Serum or plasma glucose measurement (mass/volume) 196 mg/dL 70-105 Serum or plasma calcium measurement (mass/volume) 9.6 mg/dL 8.5-10.1 Serum or plasma total bilirubin measurement (mass/volu me) 0.8 mg/dL 0.1-1.0 Serum or plasma alkaline phosphatase grey surement (enzymatic activity/volume) 52 U/L 40-136 Serum or plasma aspartate aminotransfera se measurement (enzymatic activity/volume) 11 U/L 5-34 Serum or plasma alanine aminotransferase measurement (enzymatic activity/volume) 12 U/L 0-55 Serum or plasma protein measurement (mass/volume) 6.6 g/dL 6.4-8.2 Serum or plasma albumin measurement (mass/volume) 3.9 g/dL 3.2-4.5 Bacterial blood culture - 05/30/18 09:30 Bacterial blood culture NG NRG Arterial blood gas measurement - 8 09:35 Blood pCO2 41 mm[Hg] 35-45 Blood pO2 99 mm[Hg] 79-93 Arterial blood bicarbonate measurement (moles/volume) 27 mmol/L 23-27 Arterial blood base excess by calculation 3.2 mmol /L -2.5-2.5 Arterial blood oxygen saturation measurement 99 % 94-100 * Inhaled oxygen flow rate 3 NRG Arterial blood pH measurement with patient temperature correction 7.43 7.37-7.43 Arterial blood carbon dioxide, total measurement (mole s/volume) 28.6 mmol/L 21.0-31.0 Body site R RADIAL NRG Assessment of wrist artery patency prior to arterial p uncture YES-POS NRG Setting of ventilation mode NO NR G Measurement of body temperature 97.3 NRG Complete blood count (CBC) with automate d white blood cell (WBC) differential - 05/30/18 09:37 Blood leukocytes automated count (number/volume) 14.1 10*3/uL 4.3-11.0 Blood erythrocytes automated count (number/volume) 4.86 10*6/uL 4.35-5.85 Venous blood hemoglobin measurement (mass/volume) 13.6 g/dL 11.5-16.0 Blood hematocrit (volume fraction) 42 % 35-52 Automated erythrocyte mean corpuscular volume 87 [ foz_us] 80-99 Automated erythrocyte mean corpuscular h emoglobin (mass per erythrocyte) 28 pg 25-34 Automated erythrocyte mean corpuscular h emoglobin concentration measurement (mass/volume) 32 g/dL 32-36 Automated erythrocyte distribution width ratio 16. 5 % 10.0- 14.5 Automated blood platelet count (count/volume) 190 10*3/uL 130-400 Automated blood platelet mean volume measurement 10.9 [foz_us] 7.4-10.4 Automated blood neutrophils/100 leukocytes 94 % 42-75 Automated blood lymphocytes/100 leukocytes 5 % 12-44 Blood monocytes/100 leukocytes 2 % 0-12 Automated blood eosinophils/100 leukocytes 0 % 0-10 Automated blood basophils/100 leukocytes 0 % 0-10 Blood neutrophils automated count (number/volume) 13.2 10*3 1.8-7.8 Blood lymphocytes automated count (number/volume) 0.7 10*3 1.0-4.0 Blood monocytes automated count (number/volume) 0. 2 10*3 0.0-1.0 Automated eosinophil count 0.0 10*3/uL 0 .0-0.3 Automated blood basophil count (count/volume) 0.0 10*3/uL 0.0-0.1 Whole blood basic metabolic panel - 12/16 09:37 Serum or plasma sodium measurement (moles/volume) 142 mmol/L 135-145 Serum or plasma potassium measurement (moles/volume) 3.9 mmol/L 3.6-5.0 Serum or plasma chloride measurement (moles/volume) 105 mmol/L 98-107 Carbon dioxide 27 mmol/L 21-32 Serum or plasma anion gap determination (moles/volume) 10 mmol/L 5-14 Serum or plasma urea nitrogen measurement (mass/volume ) 23 mg/dL 7-18 Serum or plasma creatinine measurement (mass/volume) 0.86 mg/dL 0.60-1.30 Serum or plasma urea nitrogen/creatinine mass ratio 27 NRG Serum or plasma creatinine measurement w ith calculation of estimated glomerular filtration rate > NRG Serum or plasma glucose measurement (mass/volume) 301 mg/dL 70-105 Serum or plasma calcium measurement (mass/volume) 9.8 mg/dL 8.5-10.1 Blood lactic acid measurement (moles/vol ume) - 05/30/18 09:37 Blood lactic acid measurement (moles/volume) 2.43 mmol/L 0.50-2.00 Serum or plasma lithium measurement (mol es/volume) - 05/30/18 09:37 BNP level 749.7 pg/mL <100.0 Bacterial blood culture - 05/30/18 09:37 Bacterial blood culture NG NRG Serum or plasma lactate measurement (mol es/volume) - 05/30/18 11:58 Serum or plasma lactate measurement (moles/volume) 2.56 mmol/L 0.50-2.00 Capillary blood glucose measurement by g lucometer (mass/volume) - 05/31/18 00:14 Capillary blood glucose measurement by glucometer (mas s/volume) 240 mg/dL 70-110 Complete blood count (CBC) with automate d white blood cell (WBC) differential - 05/31/18 03:06 Blood leukocytes automated count (number/volume) 14.0 10*3/uL 4.3-11.0 Blood erythrocytes automated count (number/volume) 4.41 10*6/uL 4.35-5.85 Venous blood hemoglobin measurement (mass/volume) 12.9 g/dL 11.5-16.0 Blood hematocrit (volume fraction) 39 % 35-52 Automated erythrocyte mean corpuscular volume 88 [ foz_us] 80-99 Automated erythrocyte mean corpuscular h emoglobin (mass per erythrocyte) 29 pg 25-34 Automated erythrocyte mean corpuscular h emoglobin concentration measurement (mass/volume) 33 g/dL 32-36 Automated erythrocyte distribution width ratio 16. 7 % 10.0- 14.5 Automated blood platelet count (count/volume) 192 10*3/uL 130-400 Automated blood platelet mean volume measurement 11.3 [foz_us] 7.4-10.4 Automated blood neutrophils/100 leukocytes 93 % 42-75 Automated blood lymphocytes/100 leukocytes 4 % 12-44 Blood monocytes/100 leukocytes 3 % 0-12 Automated blood eosinophils/100 leukocytes 0 % 0-10 Automated blood basophils/100 leukocytes 0 % 0-10 Blood neutrophils automated count (number/volume) 13.0 10*3 1.8-7.8 Blood lymphocytes automated count (number/volume) 0.5 10*3 1.0-4.0 Blood monocytes automated count (number/volume) 0. 5 10*3 0.0-1.0 Automated eosinophil count 0.0 10*3/uL 0 .0-0.3 Automated blood basophil count (count/volume) 0.0 10*3/uL 0.0-0.1 Whole blood basic metabolic panel - 01/13 03:06 Serum or plasma sodium measurement (moles/volume) 143 mmol/L 135-145 Serum or plasma potassium measurement (moles/volume) 3.7 mmol/L 3.6-5.0 Serum or plasma chloride measurement (moles/volume) 108 mmol/L 98-107 Carbon dioxide 25 mmol/L 21-32 Serum or plasma anion gap determination (moles/volume) 10 mmol/L 5-14 Serum or plasma urea nitrogen measurement (mass/volume ) 32 mg/dL 7-18 Serum or plasma creatinine measurement (mass/volume) 0.96 mg/dL 0.60-1.30 Serum or plasma urea nitrogen/creatinine mass ratio 33 NRG Serum or plasma creatinine measurement w ith calculation of estimated glomerular filtration rate 59 NRG Serum or plasma glucose measurement (mass/volume) 250 mg/dL 70-105 Serum or plasma calcium measurement (mass/volume) 9.3 mg/dL 8.5-10.1 Serum or plasma phosphate measurement (m ass/volume) - 05/31/18 03:06 Serum or plasma phosphate measurement (mass/volume) 2.8 mg/dL 2.3-4.7 Magnesium - 05/31/18 03:06 Magnesium 2.4 mg/dL 1.8-2.4 Serum or plasma triglyceride measurement (mass/volume) - 05/31/18 03:06 Serum or plasma triglyceride measurement (mass/volume) 67 mg/dL <150 Arterial blood gas measurement - 8 03:20 Blood pCO2 45 mm[Hg] 35-45 Blood pO2 119 mm[Hg] 79-93 Arterial blood bicarbonate measurement (moles/volume) 28 mmol/L 23-27 Arterial blood base excess by calculation 3.1 mmol /L -2.5-2.5 Arterial blood oxygen saturation measurement 99 % 94-100 * Inhaled oxygen flow rate 30% NRG Arterial blood pH measurement with patient temperature correction 7.40 7.37-7.43 Arterial blood carbon dioxide, total measurement (mole s/volume) 29.0 mmol/L 21.0-31.0 Body site LT RAD NRG Assessment of wrist artery patency prior to arterial p uncture YES-POS NRG Setting of ventilation mode NO NR G Measurement of body temperature 97.8 NRG Capillary blood glucose measurement by g lucometer (mass/volume) - 05/31/18 11:30 Capillary blood glucose measurement by glucometer (mas s/volume) 264 mg/dL 70-110 Sputum Gram stain - 05/31/18 12:00 Sputum Gram stain Moderate # WBC's, and mixe d bacterial maria t NRG Bacterial sputum culture - 05/31/18 12:0 0 Bacterial sputum culture NORMAL NRG Arterial blood gas measurement - 8 13:39 Blood pCO2 49 mm[Hg] 35-45 Blood pO2 165 mm[Hg] 79-93 Arterial blood bicarbonate measurement (moles/volume) 27 mmol/L 23-27 Arterial blood base excess by calculation 2.0 mmol /L -2.5-2.5 Arterial blood oxygen saturation measurement 100 % 94-100 * Inhaled oxygen flow rate 50% FI02 NRG Arterial blood pH measurement with patient temperature correction 7.35 7.37-7.43 Arterial blood carbon dioxide, total measurement (mole s/volume) 28.7 mmol/L 21.0-31.0 Body site RIGHT RADIAL NRG Assessment of wrist artery patency prior to arterial p uncture POSITIVE NRG Setting of ventilation mode YES NR G Measurement of body temperature 97.1 NRG Capillary blood glucose measurement by g lucometer (mass/volume) - 05/31/18 17:30 Capillary blood glucose measurement by glucometer (mas s/volume) 174 mg/dL 70-110 Complete blood count (CBC) with automate d white blood cell (WBC) differential - 01/22/19 16:46 Blood leukocytes automated count (number/volume) 9.4 10*3/uL 4.3-11.0 Blood erythrocytes automated count (number/volume) 5.23 10*6/uL 4.35-5.85 Venous blood hemoglobin measurement (mass/volume) 14.6 g/dL 11.5-16.0 Blood hematocrit (volume fraction) 44 % 35-52 Automated erythrocyte mean corpuscular volume 84 [ foz_us] 80-99 Automated erythrocyte mean corpuscular h emoglobin (mass per erythrocyte) 28 pg 25-34 Automated erythrocyte mean corpuscular h emoglobin concentration measurement (mass/volume) 33 g/dL 32-36 Automated erythrocyte distribution width ratio 13. 4 % 10.0- 14.5 Automated blood platelet count (count/volume) 249 10*3/uL 130-400 Automated blood platelet mean volume measurement 11.3 [foz_us] 7.4-10.4 Automated blood neutrophils/100 leukocytes 82 % 42-75 Automated blood lymphocytes/100 leukocytes 15 % 12-44 Blood monocytes/100 leukocytes 2 % 0-12 Automated blood eosinophils/100 leukocytes 0 % 0-10 Automated blood basophils/100 leukocytes 0 % 0-10 Blood neutrophils automated count (number/volume) 7.7 10*3 1.8-7.8 Blood lymphocytes automated count (number/volume) 1.5 10*3 1.0-4.0 Blood monocytes automated count (number/volume) 0. 2 10*3 0.0-1.0 Automated eosinophil count 0.0 10*3/uL 0 .0-0.3 Automated blood basophil count (count/volume) 0.0 10*3/uL 0.0-0.1 Comprehensive metabolic panel - 01/22/19 16:46 Serum or plasma sodium measurement (moles/volume) 141 mmol/L 135-145 Serum or plasma potassium measurement (moles/volume) 3.4 mmol/L 3.6-5.0 Serum or plasma chloride measurement (moles/volume) 102 mmol/L 98-107 Carbon dioxide 24 mmol/L 21-32 Serum or plasma anion gap determination (moles/volume) 15 mmol/L 5-14 Serum or plasma urea nitrogen measurement (mass/volume ) 31 mg/dL 7-18 Serum or plasma creatinine measurement (mass/volume) 1.41 mg/dL 0.60-1.30 Serum or plasma urea nitrogen/creatinine mass ratio 22 NRG Serum or plasma creatinine measurement w ith calculation of estimated glomerular filtration rate 37 NRG Serum or plasma glucose measurement (mass/volume) 266 mg/dL 70-105 Serum or plasma calcium measurement (mass/volume) 10.6 mg/dL 8.5-10.1 Serum or plasma total bilirubin measurement (mass/volu me) 0.5 mg/dL 0.1-1.0 Serum or plasma alkaline phosphatase grey surement (enzymatic activity/volume) 55 U/L 40-136 Serum or plasma aspartate aminotransfera se measurement (enzymatic activity/volume) 12 U/L 5-34 Serum or plasma alanine aminotransferase measurement (enzymatic activity/volume) 12 U/L 0-55 Serum or plasma protein measurement (mass/volume) 7.4 g/dL 6.4-8.2 Serum or plasma albumin measurement (mass/volume) 4.5 g/dL 3.2-4.5 CALCIUM CORRECTED 10.2 mg/dL 8.5-10.1 Serum or plasma lithium measurement (mol es/volume) - 01/22/19 16:46 BNP level 277.5 pg/mL <100.0 Blood lactic acid measurement (moles/vol ume) - 01/22/19 17:05 Blood lactic acid measurement (moles/volume) 3.37 mmol/L 0.50-2.00 Bacterial blood culture - 01/22/19 17:05 Bacterial blood culture NG NRG Bacterial blood culture - 01/22/19 17:25 Bacterial blood culture NG NRG Complete urinalysis with reflex to cultu re - 01/22/19 18:20 Urine color determination YELLOW NRG Urine clarity determination CLEAR NR G Urine pH measurement by test strip 5 5-9 Specific gravity of urine by test strip 1.025 1.016-1.022 Urine protein assay by test strip, semi-quantitative 1+ NEGATIVE Urine glucose detection by automated test strip 1+ NEGATIVE Erythrocytes detection in urine sediment by light micr oscopy NEGATIVE NEGATIVE Urine ketones detection by automated test strip 1+ NEGATIVE Urine nitrite detection by test strip NEGATIVE NEGATIVE Urine total bilirubin detection by test strip NEGA TIVE NEGATIVE Urine urobilinogen measurement by automated test strip (mass/volume) NORMAL NORMAL Urine leukocyte esterase detection by dipstick 2+ NEGATIVE Automated urine sediment erythrocyte cou nt by microscopy (number/high power field) NONE NRG Automated urine sediment leukocyte count by microscopy (number/high power field) [HPF] NRG Bacteria detection in urine sediment by light microsco py FEW NRG Squamous epithelial cells detection in u rine sediment by light microscopy 10-25 NRG Crystals detection in urine sediment by light microsco py NONE NRG Casts detection in urine sediment by light microscopy PRESENT NRG Mucus detection in urine sediment by light microscopy NEGATIVE NRG Complete urinalysis with reflex to culture YES NRG Hyaline casts detection in urine sediment by light abdirizak roscopy 10-25 NRG Bacterial urine culture - 01/22/19 18:20 Bacterial urine culture [id number] NRG COLONY COUNT 60,000 cfu/ml NRG FTX;REPORTABLE SENSITIVITY REPORTED 01/25/19 09:05 NRG FREE TEXT ENTRY 2 ID REPORTED 01/23/19 16:05 NRG RML Sensitivity Panel - 01/22/19 18:20 Oxacillin susceptibility test by minimum inhibitory co ncentration <= NRG Vancomycin susceptibility test by minimum inhibitory c oncentration 1 NRG Levofloxacin susceptibility test by minimum inhibitory concentration > NRG Rifampin susceptibility test by minimum inhibitory con centration <= NRG Cefazolin susceptibility test by minimum inhibitory co ncentration <= NRG Nitrofurantoin susceptibility test by mi nimum inhibitory concentration <= NRG Influenza virus A and B antigen detectio n - 01/22/19 18:25 FLU RESULT NEGATIVE FOR INFLUENZA A AND B ANTIGENS BY IA NRG Serum or plasma lactate measurement (mol es/volume) - 01/22/19 19:10 Serum or plasma lactate measurement (moles/volume) 3.09 mmol/L 0.50-2.00 Complete blood count (CBC) with automate d white blood cell (WBC) differential - 01/23/19 05:30 Blood leukocytes automated count (number/volume) 8.3 10*3/uL 4.3-11.0 Blood erythrocytes automated count (number/volume) 4.63 10*6/uL 4.35-5.85 Venous blood hemoglobin measurement (mass/volume) 13.1 g/dL 11.5-16.0 Blood hematocrit (volume fraction) 39 % 35-52 Automated erythrocyte mean corpuscular volume 85 [ foz_us] 80-99 Automated erythrocyte mean corpuscular h emoglobin (mass per erythrocyte) 28 pg 25-34 Automated erythrocyte mean corpuscular h emoglobin concentration measurement (mass/volume) 33 g/dL 32-36 Automated erythrocyte distribution width ratio 13. 7 % 10.0- 14.5 Automated blood platelet count (count/volume) 216 10*3/uL 130-400 Automated blood platelet mean volume measurement 11.8 [foz_us] 7.4-10.4 Automated blood neutrophils/100 leukocytes 87 % 42-75 Automated blood lymphocytes/100 leukocytes 13 % 12-44 Blood monocytes/100 leukocytes 1 % 0-12 Automated blood eosinophils/100 leukocytes 0 % 0-10 Automated blood basophils/100 leukocytes 0 % 0-10 Blood neutrophils automated count (number/volume) 7.1 10*3 1.8-7.8 Blood lymphocytes automated count (number/volume) 1.0 10*3 1.0-4.0 Blood monocytes automated count (number/volume) 0. 1 10*3 0.0-1.0 Automated eosinophil count 0.0 10*3/uL 0 .0-0.3 Automated blood basophil count (count/volume) 0.0 10*3/uL 0.0-0.1 Comprehensive metabolic panel - 01/23/19 05:30 Serum or plasma sodium measurement (moles/volume) 142 mmol/L 135-145 Serum or plasma potassium measurement (moles/volume) 3.4 mmol/L 3.6-5.0 Serum or plasma chloride measurement (moles/volume) 107 mmol/L 98-107 Carbon dioxide 25 mmol/L 21-32 Serum or plasma anion gap determination (moles/volume) 10 mmol/L 5-14 Serum or plasma urea nitrogen measurement (mass/volume ) 28 mg/dL 7-18 Serum or plasma creatinine measurement (mass/volume) 0.97 mg/dL 0.60-1.30 Serum or plasma urea nitrogen/creatinine mass ratio 29 NRG Serum or plasma creatinine measurement w ith calculation of estimated glomerular filtration rate 58 NRG Serum or plasma glucose measurement (mass/volume) 187 mg/dL 70-105 Serum or plasma calcium measurement (mass/volume) 9.5 mg/dL 8.5-10.1 Serum or plasma total bilirubin measurement (mass/volu me) 0.3 mg/dL 0.1-1.0 Serum or plasma alkaline phosphatase grey surement (enzymatic activity/volume) 42 U/L 40-136 Serum or plasma aspartate aminotransfera se measurement (enzymatic activity/volume) 12 U/L 5-34 Serum or plasma alanine aminotransferase measurement (enzymatic activity/volume) 11 U/L 0-55 Serum or plasma protein measurement (mass/volume) 6.1 g/dL 6.4-8.2 Serum or plasma albumin measurement (mass/volume) 3.7 g/dL 3.2-4.5 CALCIUM CORRECTED 9.7 mg/dL 8.5-10.1 Blood manual differential performed dete ction - 01/23/19 05:30 Blood monocytes/100 leukocytes 1 % NRG Manual blood segmented neutrophils/100 leukocytes 88 % NRG Blood band neutrophils/100 leukocytes 2 % NRG Manual blood lymphocytes/100 leukocytes 8 % NRG Manual eosinophils/100 leukocytes in nose 0 % NRG Manual blood basophils/100 leukocytes 0 % NRG Blood ovalocytes detection by light microscopy SLI GHT NRG Manual blood metamyelocytes/100 leukocytes 1 % NRG Blood poikilocytosis detection by light microscopy SLIGHT NRG Serum or plasma phosphate measurement (m ass/volume) - 01/23/19 05:30 Serum or plasma phosphate measurement (mass/volume) 3.9 mg/dL 2.3-4.7 Magnesium - 01/23/19 05:30 Magnesium 1.8 mg/dL 1.8-2.4 Serum or plasma troponin i.cardiac measu rement (mass/volume) - 01/23/19 05:30 Serum or plasma troponin i.cardiac measurement (mass/v olume) 0.041 ng/mL <0.028 PROCALCITONIN (PCT) - 01/23/19 05:30 PROCALCITONIN (PCT) 0.02 ng/mL <0.10 Blood lactic acid measurement (moles/vol ume) - 01/23/19 08:00 Blood lactic acid measurement (moles/volume) 2.20 mmol/L 0.50-2.00 Serum or plasma lactate measurement (mol es/volume) - 01/23/19 10:12 Serum or plasma lactate measurement (moles/volume) 2.76 mmol/L 0.50-2.00 Arterial blood gas measurement - 9 14:40 Blood pCO2 36 mm[Hg] 35-45 Blood pO2 81 mm[Hg] 79-93 Arterial blood bicarbonate measurement (moles/volume) 24 mmol/L 23-27 Arterial blood base excess by calculation -0.2 mmo l/L -2.5-2.5 Arterial blood oxygen saturation measurement 97 % 94-100 * Inhaled oxygen flow rate 3L NRG Arterial blood pH measurement with patient temperature correction 7.43 7.37-7.43 Arterial blood carbon dioxide, total measurement (mole s/volume) 24.7 mmol/L 21.0-31.0 Body site NA NRG Assessment of wrist artery patency prior to arterial p uncture NA NRG Setting of ventilation mode NO NR G Measurement of body temperature 97.8 NRG Automated blood complete blood count (he mogram) panel - 01/24/19 04:15 Blood leukocytes automated count (number/volume) 11.4 10*3/uL 4.3-11.0 Blood erythrocytes automated count (number/volume) 4.64 10*6/uL 4.35-5.85 Venous blood hemoglobin measurement (mass/volume) 12.8 g/dL 11.5-16.0 Blood hematocrit (volume fraction) 40 % 35-52 Automated erythrocyte mean corpuscular volume 86 [ foz_us] 80-99 Automated erythrocyte mean corpuscular h emoglobin (mass per erythrocyte) 28 pg 25-34 Automated erythrocyte mean corpuscular h emoglobin concentration measurement (mass/volume) 32 g/dL 32-36 Automated erythrocyte distribution width ratio 13. 8 % 10.0- 14.5 Automated blood platelet count (count/volume) 194 10*3/uL 130-400 Automated blood platelet mean volume measurement 12.1 [foz_us] 7.4-10.4 Whole blood basic metabolic panel - 12/28 07/17 04:15 Serum or plasma sodium measurement (moles/volume) 142 mmol/L 135-145 Serum or plasma potassium measurement (moles/volume) 3.5 mmol/L 3.6-5.0 Serum or plasma chloride measurement (moles/volume) 110 mmol/L 98-107 Carbon dioxide 20 mmol/L 21-32 Serum or plasma anion gap determination (moles/volume) 12 mmol/L 5-14 Serum or plasma urea nitrogen measurement (mass/volume ) 25 mg/dL 7-18 Serum or plasma creatinine measurement (mass/volume) 0.82 mg/dL 0.60-1.30 Serum or plasma urea nitrogen/creatinine mass ratio 30 NRG Serum or plasma creatinine measurement w ith calculation of estimated glomerular filtration rate > NRG Serum or plasma glucose measurement (mass/volume) 211 mg/dL 70-105 Serum or plasma calcium measurement (mass/volume) 9.1 mg/dL 8.5-10.1 Serum or plasma phosphate measurement (m ass/volume) - 01/24/19 04:15 Serum or plasma phosphate measurement (mass/volume) 2.1 mg/dL 2.3-4.7 Magnesium - 01/24/19 04:15 Magnesium 1.9 mg/dL 1.8-2.4 Automated blood complete blood count (he mogram) panel - 01/25/19 04:10 Blood leukocytes automated count (number/volume) 9.6 10*3/uL 4.3-11.0 Blood erythrocytes automated count (number/volume) 4.33 10*6/uL 4.35-5.85 Venous blood hemoglobin measurement (mass/volume) 12.2 g/dL 11.5-16.0 Blood hematocrit (volume fraction) 38 % 35-52 Automated erythrocyte mean corpuscular volume 87 [ foz_us] 80-99 Automated erythrocyte mean corpuscular h emoglobin (mass per erythrocyte) 28 pg 25-34 Automated erythrocyte mean corpuscular h emoglobin concentration measurement (mass/volume) 32 g/dL 32-36 Automated erythrocyte distribution width ratio 14. 0 % 10.0- 14.5 Automated blood platelet count (count/volume) 207 10*3/uL 130-400 Automated blood platelet mean volume measurement 11.6 [foz_us] 7.4-10.4 Whole blood basic metabolic panel - 12/29 04:10 Serum or plasma sodium measurement (moles/volume) 141 mmol/L 135-145 Serum or plasma potassium measurement (moles/volume) 4.0 mmol/L 3.6-5.0 Serum or plasma chloride measurement (moles/volume) 112 mmol/L 98-107 Carbon dioxide 20 mmol/L 21-32 Serum or plasma anion gap determination (moles/volume) 9 mmol/L 5-14 Serum or plasma urea nitrogen measurement (mass/volume ) 24 mg/dL 7-18 Serum or plasma creatinine measurement (mass/volume) 0.85 mg/dL 0.60-1.30 Serum or plasma urea nitrogen/creatinine mass ratio 28 NRG Serum or plasma creatinine measurement w ith calculation of estimated glomerular filtration rate > NRG Serum or plasma glucose measurement (mass/volume) 189 mg/dL 70-105 Serum or plasma calcium measurement (mass/volume) 9.2 mg/dL 8.5-10.1 Serum or plasma phosphate measurement (m ass/volume) - 01/25/19 04:10 Serum or plasma phosphate measurement (mass/volume) 3.1 mg/dL 2.3-4.7 Magnesium - 01/25/19 04:10 Magnesium 1.9 mg/dL 1.8-2.4 Automated blood complete blood count (he mogram) panel - 01/26/19 03:55 Blood leukocytes automated count (number/volume) 11.1 10*3/uL 4.3-11.0 Blood erythrocytes automated count (number/volume) 4.78 10*6/uL 4.35-5.85 Venous blood hemoglobin measurement (mass/volume) 13.3 g/dL 11.5-16.0 Blood hematocrit (volume fraction) 41 % 35-52 Automated erythrocyte mean corpuscular volume 86 [ foz_us] 80-99 Automated erythrocyte mean corpuscular h emoglobin (mass per erythrocyte) 28 pg 25-34 Automated erythrocyte mean corpuscular h emoglobin concentration measurement (mass/volume) 32 g/dL 32-36 Automated erythrocyte distribution width ratio 13. 7 % 10.0- 14.5 Automated blood platelet count (count/volume) 193 10*3/uL 130-400 Automated blood platelet mean volume measurement 11.6 [foz_us] 7.4-10.4 Whole blood basic metabolic panel - 12/29 11/16 03:55 Serum or plasma sodium measurement (moles/volume) 142 mmol/L 135-145 Serum or plasma potassium measurement (moles/volume) 3.4 mmol/L 3.6-5.0 Serum or plasma chloride measurement (moles/volume) 105 mmol/L 98-107 Carbon dioxide 26 mmol/L 21-32 Serum or plasma anion gap determination (moles/volume) 11 mmol/L 5-14 Serum or plasma urea nitrogen measurement (mass/volume ) 21 mg/dL 7-18 Serum or plasma creatinine measurement (mass/volume) 0.77 mg/dL 0.60-1.30 Serum or plasma urea nitrogen/creatinine mass ratio 27 NRG Serum or plasma creatinine measurement w ith calculation of estimated glomerular filtration rate > NRG Serum or plasma glucose measurement (mass/volume) 134 mg/dL 70-105 Serum or plasma calcium measurement (mass/volume) 9.3 mg/dL 8.5-10.1 Serum or plasma phosphate measurement (m ass/volume) - 01/26/19 03:55 Serum or plasma phosphate measurement (mass/volume) 2.1 mg/dL 2.3-4.7 Magnesium - 01/26/19 03:55 Magnesium 1.8 mg/dL 1.8-2.4 Serum or plasma lithium measurement (mol es/volume) - 01/26/19 11:55 BNP level 547.1 pg/mL <100.0 Automated blood complete blood count (he mogram) panel - 01/27/19 05:41 Blood leukocytes automated count (number/volume) 11.0 10*3/uL 4.3-11.0 Blood erythrocytes automated count (number/volume) 4.72 10*6/uL 4.35-5.85 Venous blood hemoglobin measurement (mass/volume) 13.3 g/dL 11.5-16.0 Blood hematocrit (volume fraction) 40 % 35-52 Automated erythrocyte mean corpuscular volume 85 [ foz_us] 80-99 Automated erythrocyte mean corpuscular h emoglobin (mass per erythrocyte) 28 pg 25-34 Automated erythrocyte mean corpuscular h emoglobin concentration measurement (mass/volume) 33 g/dL 32-36 Automated erythrocyte distribution width ratio 13. 7 % 10.0- 14.5 Automated blood platelet count (count/volume) 226 10*3/uL 130-400 Automated blood platelet mean volume measurement 11.0 [foz_us] 7.4-10.4 Whole blood basic metabolic panel - 11/16 05:41 Serum or plasma sodium measurement (moles/volume) 139 mmol/L 135-145 Serum or plasma potassium measurement (moles/volume) 3.1 mmol/L 3.6-5.0 Serum or plasma chloride measurement (moles/volume) 100 mmol/L 98-107 Carbon dioxide 26 mmol/L 21-32 Serum or plasma anion gap determination (moles/volume) 13 mmol/L 5-14 Serum or plasma urea nitrogen measurement (mass/volume ) 19 mg/dL 7-18 Serum or plasma creatinine measurement (mass/volume) 0.79 mg/dL 0.60-1.30 Serum or plasma urea nitrogen/creatinine mass ratio 24 NRG Serum or plasma creatinine measurement w ith calculation of estimated glomerular filtration rate > NRG Serum or plasma glucose measurement (mass/volume) 125 mg/dL 70-105 Serum or plasma calcium measurement (mass/volume) 9.8 mg/dL 8.5-10.1 Serum or plasma phosphate measurement (m ass/volume) - 01/27/19 05:41 Serum or plasma phosphate measurement (mass/volume) 3.0 mg/dL 2.3-4.7 Magnesium - 01/27/19 05:41 Magnesium 1.8 mg/dL 1.8-2.4 CMP - 03/14/19 08:52 GLUCOSE 90 mg/dL 65-99 UREA NITROGEN (BUN) 26 mg/dL 7-25 CREATININE 0.97 mg/dL 0.50-0.99 eGFR NON-AFR. ZAMBIAN 61 mL/min/1.73m2 > OR = 60 eGFR 71 mL/min/1.73m2 > OR = 60 BUN/CREATININE RATIO 27 (calc) 6-22 SODIUM 142 mmol/L 135-146 POTASSIUM 3.8 mmol/L 3.5-5.3 CHLORIDE 105 mmol/L 98-110 CARBON DIOXIDE 26 mmol/L 20-32 CALCIUM 9.7 mg/dL 8.6-10.4 PROTEIN, TOTAL 6.5 g/dL 6.1-8.1 ALBUMIN 4.1 g/dL 3.6-5.1 GLOBULIN 2.4 g/dL (calc) 1.9-3.7 ALBUMIN/GLOBULIN RATIO 1.7 (calc) 1.0-2. 5 BILIRUBIN, TOTAL 0.6 mg/dL 0.2-1.2 ALKALINE PHOSPHATASE 46 U/L 33-130 AST 15 U/L 10-35 ALT 14 U/L 6-29 CBC - 03/14/19 08:52 WHITE BLOOD CELL COUNT 8.9 Thousand/uL 3 .8-10.8 RED BLOOD CELL COUNT 5.14 Million/uL 3.8 0-5.10 HEMOGLOBIN 14.9 g/dL 11.7-15.5 HEMATOCRIT 45.0 % 35.0-45.0 MCV 87.5 fL 80.0-100.0 MCH 29.0 pg 27.0-33.0 MCHC 33.1 g/dL 32.0-36.0 RDW 15.7 % 11.0-15.0 PLATELET COUNT 232 Thousand/uL 140-400 MPV 11.0 fL 7.5-12.5 ABSOLUTE NEUTROPHILS 5340 cells/uL 1500- 7800 ABSOLUTE LYMPHOCYTES 2537 cells/uL 850-3 900 ABSOLUTE MONOCYTES 516 cells/uL 200-950 ABSOLUTE EOSINOPHILS 418 cells/uL 15-500 ABSOLUTE BASOPHILS 89 cells/uL 0-200 NEUTROPHILS 60 % NRG LYMPHOCYTES 28.5 % NRG MONOCYTES 5.8 % NRG EOSINOPHILS 4.7 % NRG BASOPHILS 1.0 % NRG Complete blood count (CBC) with automate d white blood cell (WBC) differential - 05/12/19 13:23 Blood leukocytes automated count (number/volume) 12.6 10*3/uL 4.3-11.0 Blood erythrocytes automated count (number/volume) 5.10 10*6/uL 4.35-5.85 Venous blood hemoglobin measurement (mass/volume) 15.0 g/dL 11.5-16.0 Blood hematocrit (volume fraction) 46 % 35-52 Automated erythrocyte mean corpuscular volume 90 [ foz_us] 80-99 Automated erythrocyte mean corpuscular h emoglobin (mass per erythrocyte) 29 pg 25-34 Automated erythrocyte mean corpuscular h emoglobin concentration measurement (mass/volume) 33 g/dL 32-36 Automated erythrocyte distribution width ratio 13. 7 % 10.0- 14.5 Automated blood platelet count (count/volume) 246 10*3/uL 130-400 Automated blood platelet mean volume measurement 11.0 [foz_us] 7.4-10.4 Automated blood neutrophils/100 leukocytes 88 % 42-75 Automated blood lymphocytes/100 leukocytes 8 % 12-44 Blood monocytes/100 leukocytes 2 % 0-12 Automated blood eosinophils/100 leukocytes 1 % 0-10 Automated blood basophils/100 leukocytes 1 % 0-10 Blood neutrophils automated count (number/volume) 11.0 10*3 1.8-7.8 Blood lymphocytes automated count (number/volume) 0.9 10*3 1.0-4.0 Blood monocytes automated count (number/volume) 0. 3 10*3 0.0-1.0 Automated eosinophil count 0.1 10*3/uL 0 .0-0.3 Automated blood basophil count (count/volume) 0.1 10*3/uL 0.0-0.1 Comprehensive metabolic panel - 05/12/19 13:23 Serum or plasma sodium measurement (moles/volume) 139 mmol/L 135-145 Serum or plasma potassium measurement (moles/volume) 3.7 mmol/L 3.6-5.0 Serum or plasma chloride measurement (moles/volume) 101 mmol/L 98-107 Carbon dioxide 24 mmol/L 21-32 Serum or plasma anion gap determination (moles/volume) 14 mmol/L 5-14 Serum or plasma urea nitrogen measurement (mass/volume ) 19 mg/dL 7-18 Serum or plasma creatinine measurement (mass/volume) 0.87 mg/dL 0.60-1.30 Serum or plasma urea nitrogen/creatinine mass ratio 22 NRG Serum or plasma creatinine measurement w ith calculation of estimated glomerular filtration rate > NRG Serum or plasma glucose measurement (mass/volume) 189 mg/dL 70-105 Serum or plasma calcium measurement (mass/volume) 9.6 mg/dL 8.5-10.1 Serum or plasma total bilirubin measurement (mass/volu me) 0.6 mg/dL 0.1-1.0 Serum or plasma alkaline phosphatase grey surement (enzymatic activity/volume) 52 U/L 40-136 Serum or plasma aspartate aminotransfera se measurement (enzymatic activity/volume) 17 U/L 5-34 Serum or plasma alanine aminotransferase measurement (enzymatic activity/volume) 17 U/L 0-55 Serum or plasma protein measurement (mass/volume) 7.0 g/dL 6.4-8.2 Serum or plasma albumin measurement (mass/volume) 4.3 g/dL 3.2-4.5 CALCIUM CORRECTED 9.4 mg/dL 8.5-10.1 Serum or plasma troponin i.cardiac measu rement (mass/volume) - 05/12/19 13:23 Serum or plasma troponin i.cardiac measurement (mass/v olume) < ng/mL <0.30 PROBNP FS - 05/12/19 13:23 PROBNP FS 1730.0 pg/mL <75.0 Bacterial blood culture - 05/12/19 14:00 Bacterial blood culture NG NRG Bacterial blood culture - 05/12/19 14:20 Bacterial blood culture NG NRG Complete urinalysis with reflex to cultu re - 05/12/19 14:30 Urine color determination YELLOW NRG Urine clarity determination CLEAR NR G Urine pH measurement by test strip 5.0 5-9 Specific gravity of urine by test strip 1.025 1.016-1.022 Urine protein assay by test strip, semi-quantitative NEGATIVE NEGATIVE Urine glucose detection by automated test strip NE GATIVE NEGATIVE Erythrocytes detection in urine sediment by light micr oscopy NEGATIVE NEGATIVE Urine ketones detection by automated test strip NE GATIVE NEGATIVE Urine nitrite detection by test strip NEGATIVE NEGATIVE Urine total bilirubin detection by test strip NEGA TIVE NEGATIVE Urine urobilinogen measurement by automated test strip (mass/volume) 0.2 mg/dL NORMAL Urine leukocyte esterase detection by dipstick NEG ATIVE NEGATIVE Automated urine sediment erythrocyte cou nt by microscopy (number/high power field) NONE NRG Automated urine sediment leukocyte count by microscopy (number/high power field) RARE NRG Bacteria detection in urine sediment by light microsco py NEG NRG Crystals detection in urine sediment by light microsco py NONE NRG Casts detection in urine sediment by light microscopy NONE NRG Mucus detection in urine sediment by light microscopy NEGATIVE NRG Complete urinalysis with reflex to culture NO NRG Arterial blood gas measurement - 9 15:00 Blood pCO2 35 mm[Hg] 35-45 Blood pO2 68 mm[Hg] 79-93 Arterial blood bicarbonate measurement (moles/volume) 25 mmol/L 23-27 Arterial blood base excess by calculation 1.3 mmol /L -2.5-2.5 Arterial blood oxygen saturation measurement 94 % 94-100 * Inhaled oxygen flow rate ROOM AIR NRG Arterial blood pH measurement with patient temperature correction 7.46 7.37-7.43 Arterial blood carbon dioxide, total measurement (mole s/volume) 26.0 mmol/L 21.0-31.0 Body site RT RADIAL NRG Assessment of wrist artery patency prior to arterial p uncture OK NRG Setting of ventilation mode NO NR G Measurement of body temperature 96.6 NRG Complete blood count (CBC) with automate d white blood cell (WBC) differential - 05/13/19 04:55 Blood leukocytes automated count (number/volume) 8.9 10*3/uL 4.3-11.0 Blood erythrocytes automated count (number/volume) 4.98 10*6/uL 4.35-5.85 Venous blood hemoglobin measurement (mass/volume) 14.3 g/dL 11.5-16.0 Blood hematocrit (volume fraction) 43 % 35-52 Automated erythrocyte mean corpuscular volume 87 [ foz_us] 80-99 Automated erythrocyte mean corpuscular h emoglobin (mass per erythrocyte) 29 pg 25-34 Automated erythrocyte mean corpuscular h emoglobin concentration measurement (mass/volume) 33 g/dL 32-36 Automated erythrocyte distribution width ratio 14. 0 % 10.0- 14.5 Automated blood platelet count (count/volume) 241 10*3/uL 130-400 Automated blood platelet mean volume measurement 10.9 [foz_us] 7.4-10.4 Automated blood neutrophils/100 leukocytes 87 % 42-75 Automated blood lymphocytes/100 leukocytes 12 % 12-44 Blood monocytes/100 leukocytes 1 % 0-12 Automated blood eosinophils/100 leukocytes 0 % 0-10 Automated blood basophils/100 leukocytes 0 % 0-10 Blood neutrophils automated count (number/volume) 7.8 10*3 1.8-7.8 Blood lymphocytes automated count (number/volume) 1.1 10*3 1.0-4.0 Blood monocytes automated count (number/volume) 0. 1 10*3 0.0-1.0 Automated eosinophil count 0.0 10*3/uL 0 .0-0.3 Automated blood basophil count (count/volume) 0.0 10*3/uL 0.0-0.1 Comprehensive metabolic panel - 05/13/19 04:55 Serum or plasma sodium measurement (moles/volume) 138 mmol/L 135-145 Serum or plasma potassium measurement (moles/volume) 3.5 mmol/L 3.6-5.0 Serum or plasma chloride measurement (moles/volume) 102 mmol/L 98-107 Carbon dioxide 23 mmol/L 21-32 Serum or plasma anion gap determination (moles/volume) 13 mmol/L 5-14 Serum or plasma urea nitrogen measurement (mass/volume ) 29 mg/dL 7-18 Serum or plasma creatinine measurement (mass/volume) 1.21 mg/dL 0.60-1.30 Serum or plasma urea nitrogen/creatinine mass ratio 24 NRG Serum or plasma creatinine measurement w ith calculation of estimated glomerular filtration rate 45 NRG Serum or plasma glucose measurement (mass/volume) 200 mg/dL 70-105 Serum or plasma calcium measurement (mass/volume) 9.8 mg/dL 8.5-10.1 Serum or plasma total bilirubin measurement (mass/volu me) 0.4 mg/dL 0.1-1.0 Serum or plasma alkaline phosphatase grey surement (enzymatic activity/volume) 48 U/L 40-136 Serum or plasma aspartate aminotransfera se measurement (enzymatic activity/volume) 12 U/L 5-34 Serum or plasma alanine aminotransferase measurement (enzymatic activity/volume) 14 U/L 0-55 Serum or plasma protein measurement (mass/volume) 6.5 g/dL 6.4-8.2 Serum or plasma albumin measurement (mass/volume) 4.0 g/dL 3.2-4.5 CALCIUM CORRECTED 9.8 mg/dL 8.5-10.1 Capillary blood glucose measurement by g lucometer (mass/volume) - 05/13/19 11:06 Capillary blood glucose measurement by glucometer (mas s/volume) 261 mg/dL 70-110 Capillary blood glucose measurement by g lucometer (mass/volume) - 05/13/19 16:28 Capillary blood glucose measurement by glucometer (mas s/volume) 290 mg/dL 70-110 Capillary blood glucose measurement by g lucometer (mass/volume) - 05/13/19 20:25 Capillary blood glucose measurement by glucometer (mas s/volume) 255 mg/dL 70-110 Complete blood count (CBC) with automate d white blood cell (WBC) differential - 05/14/19 04:43 Blood leukocytes automated count (number/volume) 18.5 10*3/uL 4.3-11.0 Blood erythrocytes automated count (number/volume) 4.87 10*6/uL 4.35-5.85 Venous blood hemoglobin measurement (mass/volume) 14.3 g/dL 11.5-16.0 Blood hematocrit (volume fraction) 44 % 35-52 Automated erythrocyte mean corpuscular volume 90 [ foz_us] 80-99 Automated erythrocyte mean corpuscular h emoglobin (mass per erythrocyte) 29 pg 25-34 Automated erythrocyte mean corpuscular h emoglobin concentration measurement (mass/volume) 33 g/dL 32-36 Automated erythrocyte distribution width ratio 14. 1 % 10.0- 14.5 Automated blood platelet count (count/volume) 246 10*3/uL 130-400 Automated blood platelet mean volume measurement 10.9 [foz_us] 7.4-10.4 Automated blood neutrophils/100 leukocytes 91 % 42-75 Automated blood lymphocytes/100 leukocytes 7 % 12-44 Blood monocytes/100 leukocytes 2 % 0-12 Automated blood eosinophils/100 leukocytes 0 % 0-10 Automated blood basophils/100 leukocytes 0 % 0-10 Blood neutrophils automated count (number/volume) 16.8 10*3 1.8-7.8 Blood lymphocytes automated count (number/volume) 1.3 10*3 1.0-4.0 Blood monocytes automated count (number/volume) 0. 4 10*3 0.0-1.0 Automated eosinophil count 0.0 10*3/uL 0 .0-0.3 Automated blood basophil count (count/volume) 0.0 10*3/uL 0.0-0.1 Manual absolute plasma cell count - 04/28 05/16 04:43 Blood monocytes/100 leukocytes 1 % NRG Manual blood segmented neutrophils/100 leukocytes 94 % NRG Blood band neutrophils/100 leukocytes 1 % NRG Manual blood lymphocytes/100 leukocytes 4 % NRG Blood erythrocyte morphology finding identification [facility] Comprehensive metabolic panel - 05/14/19 04:43 Serum or plasma sodium measurement (moles/volume) 140 mmol/L 135-145 Serum or plasma potassium measurement (moles/volume) 4.2 mmol/L 3.6-5.0 Serum or plasma chloride measurement (moles/volume) 106 mmol/L 98-107 Carbon dioxide 24 mmol/L 21-32 Serum or plasma anion gap determination (moles/volume) 10 mmol/L 5-14 Serum or plasma urea nitrogen measurement (mass/volume ) 44 mg/dL 7-18 Serum or plasma creatinine measurement (mass/volume) 1.19 mg/dL 0.60-1.30 Serum or plasma urea nitrogen/creatinine mass ratio 37 NRG Serum or plasma creatinine measurement w ith calculation of estimated glomerular filtration rate 46 NRG Serum or plasma glucose measurement (mass/volume) 181 mg/dL 70-105 Serum or plasma calcium measurement (mass/volume) 10.3 mg/dL 8.5-10.1 Serum or plasma total bilirubin measurement (mass/volu me) 0.3 mg/dL 0.1-1.0 Serum or plasma alkaline phosphatase grey surement (enzymatic activity/volume) 48 U/L 40-136 Serum or plasma aspartate aminotransfera se measurement (enzymatic activity/volume) 9 U/L 5-34 Serum or plasma alanine aminotransferase measurement (enzymatic activity/volume) 13 U/L 0-55 Serum or plasma protein measurement (mass/volume) 6.2 g/dL 6.4-8.2 Serum or plasma albumin measurement (mass/volume) 3.8 g/dL 3.2-4.5 CALCIUM CORRECTED 10.5 mg/dL 8.5-10.1 Capillary blood glucose measurement by g lucometer (mass/volume) - 05/14/19 05:24 Capillary blood glucose measurement by glucometer (mas s/volume) 190 mg/dL 70-110 Capillary blood glucose measurement by g lucometer (mass/volume) - 05/14/19 10:38 Capillary blood glucose measurement by glucometer (mas s/volume) 324 mg/dL 70-110 Capillary blood glucose measurement by g lucometer (mass/volume) - 05/14/19 15:36 Capillary blood glucose measurement by glucometer (mas s/volume) 274 mg/dL 70-110 Capillary blood glucose measurement by g lucometer (mass/volume) - 05/14/19 20:45 Capillary blood glucose measurement by glucometer (mas s/volume) 340 mg/dL 70-110 Capillary blood glucose measurement by g lucometer (mass/volume) - 05/15/19 05:13 Capillary blood glucose measurement by glucometer (mas s/volume) 166 mg/dL 70-110 Complete blood count (CBC) with automate d white blood cell (WBC) differential - 05/15/19 05:55 Blood leukocytes automated count (number/volume) 15.5 10*3/uL 4.3-11.0 Blood erythrocytes automated count (number/volume) 4.90 10*6/uL 4.35-5.85 Venous blood hemoglobin measurement (mass/volume) 14.0 g/dL 11.5-16.0 Blood hematocrit (volume fraction) 44 % 35-52 Automated erythrocyte mean corpuscular volume 90 [ foz_us] 80-99 Automated erythrocyte mean corpuscular h emoglobin (mass per erythrocyte) 29 pg 25-34 Automated erythrocyte mean corpuscular h emoglobin concentration measurement (mass/volume) 32 g/dL 32-36 Automated erythrocyte distribution width ratio 14. 4 % 10.0- 14.5 Automated blood platelet count (count/volume) 257 10*3/uL 130-400 Automated blood platelet mean volume measurement 10.7 [foz_us] 7.4-10.4 Automated blood neutrophils/100 leukocytes 91 % 42-75 Automated blood lymphocytes/100 leukocytes 7 % 12-44 Blood monocytes/100 leukocytes 2 % 0-12 Automated blood eosinophils/100 leukocytes 0 % 0-10 Automated blood basophils/100 leukocytes 0 % 0-10 Blood neutrophils automated count (number/volume) 14.1 10*3 1.8-7.8 Blood lymphocytes automated count (number/volume) 1.1 10*3 1.0-4.0 Blood monocytes automated count (number/volume) 0. 3 10*3 0.0-1.0 Automated eosinophil count 0.0 10*3/uL 0 .0-0.3 Automated blood basophil count (count/volume) 0.0 10*3/uL 0.0-0.1 Comprehensive metabolic panel - 05/15/19 05:55 Serum or plasma sodium measurement (moles/volume) 141 mmol/L 135-145 Serum or plasma potassium measurement (moles/volume) 4.4 mmol/L 3.6-5.0 Serum or plasma chloride measurement (moles/volume) 107 mmol/L 98-107 Carbon dioxide 26 mmol/L 21-32 Serum or plasma anion gap determination (moles/volume) 8 mmol/L 5-14 Serum or plasma urea nitrogen measurement (mass/volume ) 44 mg/dL 7-18 Serum or plasma creatinine measurement (mass/volume) 0.99 mg/dL 0.60-1.30 Serum or plasma urea nitrogen/creatinine mass ratio 44 NRG Serum or plasma creatinine measurement w ith calculation of estimated glomerular filtration rate 56 NRG Serum or plasma glucose measurement (mass/volume) 173 mg/dL 70-105 Serum or plasma calcium measurement (mass/volume) 10.3 mg/dL 8.5-10.1 Serum or plasma total bilirubin measurement (mass/volu me) 0.2 mg/dL 0.1-1.0 Serum or plasma alkaline phosphatase grey surement (enzymatic activity/volume) 50 U/L 40-136 Serum or plasma aspartate aminotransfera se measurement (enzymatic activity/volume) 7 U/L 5-34 Serum or plasma alanine aminotransferase measurement (enzymatic activity/volume) 12 U/L 0-55 Serum or plasma protein measurement (mass/volume) 6.2 g/dL 6.4-8.2 Serum or plasma albumin measurement (mass/volume) 3.8 g/dL 3.2-4.5 CALCIUM CORRECTED 10.5 mg/dL 8.5-10.1 Capillary blood glucose measurement by g lucometer (mass/volume) - 05/15/19 11:36 Capillary blood glucose measurement by glucometer (mas s/volume) 297 mg/dL 70-110 Capillary blood glucose measurement by g lucometer (mass/volume) - 05/15/19 15:42 Capillary blood glucose measurement by glucometer (mas s/volume) 309 mg/dL 70-110 Capillary blood glucose measurement by g lucometer (mass/volume) - 05/15/19 21:13 Capillary blood glucose measurement by glucometer (mas s/volume) 311 mg/dL 70-110 Complete blood count (CBC) with automate d white blood cell (WBC) differential - 05/16/19 05:23 Blood leukocytes automated count (number/volume) 13.6 10*3/uL 4.3-11.0 Blood erythrocytes automated count (number/volume) 4.72 10*6/uL 4.35-5.85 Venous blood hemoglobin measurement (mass/volume) 13.6 g/dL 11.5-16.0 Blood hematocrit (volume fraction) 43 % 35-52 Automated erythrocyte mean corpuscular volume 91 [ foz_us] 80-99 Automated erythrocyte mean corpuscular h emoglobin (mass per erythrocyte) 29 pg 25-34 Automated erythrocyte mean corpuscular h emoglobin concentration measurement (mass/volume) 32 g/dL 32-36 Automated erythrocyte distribution width ratio 14. 3 % 10.0- 14.5 Automated blood platelet count (count/volume) 220 10*3/uL 130-400 Automated blood platelet mean volume measurement 10.6 [foz_us] 7.4-10.4 Automated blood neutrophils/100 leukocytes 74 % 42-75 Automated blood lymphocytes/100 leukocytes 17 % 12-44 Blood monocytes/100 leukocytes 8 % 0-12 Automated blood eosinophils/100 leukocytes 0 % 0-10 Automated blood basophils/100 leukocytes 0 % 0-10 Blood neutrophils automated count (number/volume) 10.1 10*3 1.8-7.8 Blood lymphocytes automated count (number/volume) 2.3 10*3 1.0-4.0 Blood monocytes automated count (number/volume) 1. 1 10*3 0.0-1.0 Automated eosinophil count 0.1 10*3/uL 0 .0-0.3 Automated blood basophil count (count/volume) 0.0 10*3/uL 0.0-0.1 Comprehensive metabolic panel - 05/16/19 05:23 Serum or plasma sodium measurement (moles/volume) 141 mmol/L 135-145 Serum or plasma potassium measurement (moles/volume) 3.5 mmol/L 3.6-5.0 Serum or plasma chloride measurement (moles/volume) 110 mmol/L 98-107 Carbon dioxide 24 mmol/L 21-32 Serum or plasma anion gap determination (moles/volume) 7 mmol/L 5-14 Serum or plasma urea nitrogen measurement (mass/volume ) 33 mg/dL 7-18 Serum or plasma creatinine measurement (mass/volume) 0.80 mg/dL 0.60-1.30 Serum or plasma urea nitrogen/creatinine mass ratio 41 NRG Serum or plasma creatinine measurement w ith calculation of estimated glomerular filtration rate > NRG Serum or plasma glucose measurement (mass/volume) 102 mg/dL 70-105 Serum or plasma calcium measurement (mass/volume) 9.9 mg/dL 8.5-10.1 Serum or plasma total bilirubin measurement (mass/volu me) 0.2 mg/dL 0.1-1.0 Serum or plasma alkaline phosphatase grey surement (enzymatic activity/volume) 48 U/L 40-136 Serum or plasma aspartate aminotransfera se measurement (enzymatic activity/volume) 6 U/L 5-34 Serum or plasma alanine aminotransferase measurement (enzymatic activity/volume) 11 U/L 0-55 Serum or plasma protein measurement (mass/volume) 5.7 g/dL 6.4-8.2 Serum or plasma albumin measurement (mass/volume) 3.5 g/dL 3.2-4.5 CALCIUM CORRECTED 10.3 mg/dL 8.5-10.1 Capillary blood glucose measurement by g lucometer (mass/volume) - 05/16/19 05:50 Capillary blood glucose measurement by glucometer (mas s/volume) 92 mg/dL 70-110 Capillary blood glucose measurement by g lucometer (mass/volume) - 05/16/19 11:06 Capillary blood glucose measurement by glucometer (mas s/volume) 208 mg/dL 70-110 CULTURE, URINE - 06/06/19 09:17 CULTURE, URINE, ROUTINE SEE NOTE NRG Methicillin resistant Staphylococcus aur eus (MRSA) screening culture - 09/10/19 07:30 Methicillin resistant Staphylococcus aureus (MRSA) scr eening culture NEG NRG Coronavirus SARS-CoV-2 SO 2019 - 0 13:21 Coronavirus Ab [Units/volume] in Serum Negative Negative Encounters ACCT No. Visit Date/Time Discharge Status Pt. Type Provider Facility Loc./Unit Complaint [id number] 09/26/2019 11:40:00 09/26/2019 23:59: 59 CLS Outpatient [facility] [id number] 06/06/2019 08:30:00 Document Registration [id number] 03/14/2019 09:15:00 Document Registration [id number] 03/05/2020 07:11:00 15:47:00 DIS Outpatient LENNY REED MD [facility] PREOP INCONTINENCE [id number] 12/23/2019 08:45:00 23:59:59 CLS Preadmit LENNY REED MD [facility] SDC OVERACTIVE BLADDER, URG ENCY [id number] 12/18/2019 05:40:00 13:08:00 DIS Outpatient LENNY REED MD [facility] PREOP BOTOX INJECTION [id number] 11/26/2019 08:33:00 23:59:59 CLS Outpatient JUNIOR CARPENTER [facility] CARD ATRIAL FIBRILLATION [id number] 10/15/2019 00:11:00 23:59:59 CLS Preadmit LENNY REED MD [facility] RAD LT RENAL STONE [id number] 07/16/2019 13:53:00 00:01:00 DIS Outpatient LENNY REED MD [facility] RAD LT RENAL STONE [id number] 10/10/2019 14:32:00 23:59:59 CLS Preadmit 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 [facility] CARD CHRONIC ART FIB,CERRATO,FATIGUE,PALPITATIONS [id number] 09/10/2019 06:40:00 10:50:00 DIS Outpatient LENNY REED MD [facility] SDC ISD, INCONTENCE, OVERAC TIVE BLADDER [id number] 09/04/2019 13:33:00 13:54:00 DIS Outpatient LENNY REED MD [facility] PREOP MACROPLASTIQUE [id number] 08/04/2019 12:45:00 23:59:59 CLS Preadmit NAYE MCCABE APRN [facility] RAD ACUTE CHRONIC R ESPIRATORY FAILURE,SLEEP DISORDER [id number] 07/03/2019 09:28:00 23:59:59 CLS Outpatient ANGELITO CHU MD [facility] RAD FS ACUTE FLANK PAIN [id number] 06/24/2019 10:58:00 23:59:59 CLS Outpatient ANGELITO CHU MD [facility] RAD FS R10.9 [id number] 05/12/2019 14:45:00 14:20:00 DIS Inpatient MIGEL MCGUIRE DO, V ia [facility] 4TH COPD EXACERBATION [id number] 01/22/2019 18:46:00 14:10:00 DIS Inpatient CONNOR KIM MD [facility] 4TH COPD EXACERBATION [id number] 10/15/2017 10:00:00 23:59:59 CLS Preadmit NAYE MCCABE LYE PEEL OPERATOR [facility] SLEEP G47.9 SLEEP DIS ORDER, UNSPECIFIED [id number] 10/01/2017 14:33:00 017 23:59:59 CLS Outpatient NAYE MCCABE LYE PEEL OPERATOR [facility] RAD J45.909 ASTHMA [id number] 08/09/2017 13:35:00 017 23:59:59 CLS Preadmit SAW MCCABEINE E LYE PEEL OPERATOR [facility] SLEEP G47.9 SLEEP DIS ORDER [id number] 08/02/2017 14:10:00 017 23:59:59 CLS Preadmit NAYE MCCABE E LYE PEEL OPERATOR Via [facility] RAD ABNORMAL CT R93 .8 [id number] 08/02/2017 14:09:00 017 23:59:59 CLS Outpatient NAYE MCCABE LYE PEEL OPERATOR [facility] RAD COPD J44.9 [id number] 07/10/2017 10:05:00 017 19:50:00 DIS Inpatient JUDY GIL, CONNOR Xiao [facility] 4TH PNEUMONIA R/O PULM HEM [id number] 06/07/2017 11:45:00 017 23:59:59 CLS Preadmit NAYE MCCABE LYE PEEL OPERATOR [facility] RAD R93.[address] SCAN [id number] 03/20/2017 13:58:00 017 23:59:59 CLS Outpatient NAYE MCCABE LYE PEEL OPERATOR [facility] CARD R06.09 [id number] 03/14/2017 06:41:00 017 09:00:00 DIS Outpatient DRISS FUNES DO [facility] ENDO LYMPHADENOPATHY [id number] 03/12/2017 05:51:00 017 13:42:00 DIS Outpatient DRISS FUNES DO [facility] PREOP BRONCHOSCOPY [id number] 03/08/2017 11:17:00 017 23:59:59 CLS Outpatient NAYE MCCABE LYE PEEL OPERATOR [facility] LAB R59.0 [id number] 03/10/2020 08:00:00 P EN Don REED MD, LENNY Moore [facility] SDC INCONTINENCE [id number] 06/10/2018 19:17:00 Document Registration [id number] 05/27/2018 23:43:[address] Inpatient JUDY GIL, CONNOR Xiao [facility] ICU ATAXIA,POSSIBLE CVA,HTN
[2020-03-10] MEDS ORDERED: LACTATED RINGERS 1,000 ML IV PRN (06:40)
[2020-03-10] MEDS ORDERED: LEVOFLOXACIN 250 MG/50 ML IVPB 50 ML IV ONE (06:45)
[2020-03-10] MEDS ORDERED: RT-ALBUTEROL SULF 2.5 MG/3 ML PRE-MIX VIAL INH ONE (06:45)
[2020-03-10] MEDS ORDERED: ONABOTULINUMTOXINA 100 UNIT (BOTOX) VIAL INJ NR (07:00)
[2020-03-10] MEDS ORDERED: DEXAMETHASONE 10 MG/ML (DECADRON) 1 ML VIAL ONE (07:04)
[2020-03-10] MEDS ORDERED: fentaNYL INJECTION 100 MCG/2 ML AMP ONE (07:04)
[2020-03-10] MEDS ORDERED: ONDANSETRON 4 MG/2 ML (SDV) Z0FRAN ONE (07:04)
[2020-03-10] MEDS ORDERED: proPOfol 200 MG/20 ML (DIPRIVAN) VIAL IV ONE (07:04)
[2020-03-10] MEDS ORDERED: LIDOCAINE PF 2% 5 ML (XYLOCAINE) VIAL ONE (07:04)
[2020-03-10] MEDS ORDERED: SEVOFLURANE (ULTANE) 15 ML INHAL SOLN ONE ×2 (07:04→08:14)
[2020-03-10] MEDS ORDERED: MIDAZOLAM 2 MG/2 ML (VERSED) VIAL ONE (07:05)
--- NOTE | 2020-03-10 07:08 | Progress Note-Pre Operative ---
Pre-Operative Progress Note H&P Reviewed The H&P was reviewed, patient examined and no changes noted. Date Seen by Provider: March 10, 2020 Time Seen by Provider: 07:07 Date H&P Reviewed: March 10, 2020 Time H&P Reviewed: 07:07 Pre-Operative Diagnosis: SEVERE URGENCY WITH INCONTINENCE AND OAB LENNY REED MD March 10, 2020 07:08
[2020-03-10] MEDS ORDERED: 0.9% SODIUM CHLORIDE PF INJ 20 ML VIAL ONE (07:13)
--- NOTE | 2020-03-10 07:13 | Progress Note-Post Operative ---
Post-Operative Progess Note Surgeon (s)/Six Pack Loader Operator (s) Surgeon LENNY REED MD Six Pack Loader Operator: NONE Pre-Operative Diagnosis SEVERE URGENCY WITH INCONTINENCE AND OAB Post-Operative Diagnosis SAME Procedure & Operative Findings Date of Procedure 03/10/20 Procedure Performed/Findings INTRAVESICAL INJECTION OF BOTOX Anesthesia Type GENERAL Estimated Blood Loss Estimated blood loss (mL): NEGLIGIBLE Specimens/Packing Specimens Removed NONE Packing: NONE LENNY REED MD March 10, 2020 07:13
--- NOTE | 2020-03-10 07:16 | Discharge Inst-Urology ---
Discharge Inst-Urology Reconcile Patient Problems Problems Reviewed?: Yes Final Diagnosis SEVERE URGENCY WITH INCONTINENCE AND OAB Patient Instructions/Follow Up Plan/Assessment/Instructions Please make appointment to been seen in office in 4 weeks. In 48 hours, if no bleeding, may resume Plavix and Eliquis Increase oral fluids for 48 hours and then as needed. Diet and Activity as tolerated. If questions or concerns contact your physician Or seek help at emergency department. LENNY REED MD March 10, 2020 07:16
[2020-03-10] MEDS ORDERED: PHEN-640 PO (08:11)
[2020-03-10] MEDS ORDERED: NITR-65 PO (08:11)
--- NOTE | 2020-03-10 11:41 | OPERATIVE REPORT ---
DATE OF SERVICE: 03/10/2020 PREOPERATIVE DIAGNOSES: Severe urgency with incontinence and overactive bladder. POSTOPERATIVE DIAGNOSES: Severe urgency with incontinence and overactive bladder. OPERATION PERFORMED: Intravesical injection of Botox. SURGEON: Aleksey Reed MD. ANESTHESIA: General. COMPLICATIONS: None. DESCRIPTION OF PROCEDURE: Under satisfactory general anesthesia, the patient in lithotomy position, genitalia were prepped and draped in the usual sterile fashion. Noted poor hygiene of the patient, she was cleaned up. A cystoscope was introduced in the bladder and injection of Botox was performed in 20 areas, injected 0.5 mL for a total of 100 units of Botox. The bladder was evacuated and the cystoscope was removed. Hemostasis was near complete. There was very minimal bleeding. The patient tolerated the procedure and anesthesia well and was sent to the recovery room in a stable condition. Job ID: [id number] DocumentID: [id number] Dictated Date: 03/10/2020 08:13:59 International Marketing Coordinator Date: 03/10/2020 11:41:26 Dictated By: ALEKSEY REED MD
== END 2020-03-10 10:15 | disposition home or self-care (01) ==
LOC: SDC 06:23
PROVIDERS: ATTEND Urology
DX: N39.41 Urge incontinence (principal); N32.81 Overactive bladder; Z11.2 Encounter for screening for other bacterial diseases; I25.10 Atherosclerotic heart disease of native coronary artery without angina pectoris; I10 Essential (primary) hypertension; I48.91 Unspecified atrial fibrillation; E78.5 Hyperlipidemia, unspecified; J44.9 Chronic obstructive pulmonary disease, unspecified; K21.9 Gastro-esophageal reflux disease without esophagitis; F32.9 Major depressive disorder, single episode, unspecified; F41.9 Anxiety disorder, unspecified; Z86.73 Personal history of transient ischemic attack (TIA), and cerebral infarction without residual deficits; Z85.528 Personal history of other malignant neoplasm of kidney; Z79.01 Long term (current) use of anticoagulants; Z79.899 Other long term (current) drug therapy; Z86.718 Personal history of other venous thrombosis and embolism; Z95.5 Presence of coronary angioplasty implant and graft; Z99.2 Dependence on renal dialysis
CPT/HCPCS: 87081; 94640

== ENCOUNTER → 2020-05-07 | Outpatient (CLI) | payer MEDICARE, MEDICAID ==
[~2020-05-07] MED LIST changes: +NITR-65 PO; +PHEN-640 PO
--- NOTE | 2020-05-07 14:59 | Diagnostic Imaging Report ---
INDICATION: Fall and left hip pain. TIME OF EXAM: 2:16 PM 2 views left hip are obtained. Femoral acetabular alignment is normal. Joint space is fairly well maintained. Femoral head and neck are intact. No fractures are seen. IMPRESSION: No acute bony abnormality is detected. Dictated by: Dictated on workstation # [id number]
--- NOTE | 2020-05-07 14:59 | Diagnostic Imaging Report ---
INDICATION: Fall with pain in the left foot. TIME OF EXAM: 2:18 PM 3 views of the left foot were obtained. There appears to be mild dorsal soft tissue swelling present. The metatarsals are intact. The phalanges appear to be intact. Midfoot and hindfoot are unremarkable apart from a small plantar calcaneal spur. No fractures are seen. Punctate opacity in the plantar soft tissues at the level of the MTP joints on the lateral view is seen. This appears to be at approximately the level of the 2nd MTP joint. This may represent a tiny foreign body. IMPRESSION: Dorsal soft tissue swelling. No acute bony abnormality is identified. Punctate plantar probable foreign body is noted, as described. Dictated by: Dictated on workstation # [id number]
== END ==
LOC: RAD FS 14:05
PROVIDERS: ATTEND Nurse Practitioner Family
DX: M25.552 Pain in left hip (principal); M79.89 Other specified soft tissue disorders; W19.XXXA Unspecified fall, initial encounter
CPT/HCPCS: 73502; 73630

== ENCOUNTER → 2020-06-10 | Outpatient (CLI) | payer MEDICARE, MEDICAID ==
--- NOTE | 2020-06-10 13:39 | Diagnostic Imaging Report ---
EXAMINATION: CT head without contrast. TECHNIQUE: Multiple contiguous axial images were obtained through the brain without the use of intravenous contrast. All CT scans use one or more of the following dose optimizing techniques: automated exposure control, MA and/or KvP adjustment based on a patient size and exam type, or iterative reconstruction. HISTORY: Stroke two weeks ago. Right facial and right arm numbness. COMPARISON: MRI brain on 05/28/2018. FINDINGS: No large acute territorial ischemia, mass, or hemorrhage. Small old lacunar infarcts are seen in the bilateral basal ganglia. No midline shift or mass effect. Decreased attenuation is seen in the periventricular and subcortical white matter. The ventricles and cortical sulci are prominent. The basilar cisterns are patent and unremarkable. The orbits are normal. Paranasal sinuses are normal. Mastoid air cells are clear. No soft tissue abnormality is seen. No osseous lesions or fractures are seen. IMPRESSION: 1. No large acute territorial ischemia, mass, or hemorrhage. 2. Old lacunar infarcts in the bilateral basal ganglia. 3. Generalized parenchymal volume loss with chronic microvascular disease. Dictated by: Dictated on workstation # [id number]
== END ==
LOC: RAD 12:36
PROVIDERS: ATTEND Family Medicine
DX: I63.9 Cerebral infarction, unspecified (principal); I67.82 Cerebral ischemia; G93.89 Other specified disorders of brain
CPT/HCPCS: 70450

== ENCOUNTER → 2020-09-02 | Outpatient (CLI) | payer MEDICARE, MEDICAID ==
[~2020-09-02] MED LIST changes: +ALPR.25T PO; -ALPR0.254 PO; +AMLO-251 PO; -AMLO10TA7 PO; +ASPI-1238 PO; -ASPI-983 PO
[2020-09-02 11:23] LABS: HEMATOCRIT 40 % (35-52); HEMOGLOBIN 13.3 G/DL (11.5-16.0); MEAN CORPUSCULAR HEMOGLOBIN 31 PG (25-34); WHITE BLOOD COUNT 8.2 10^3/uL (4.3-11.0)
[2020-09-02 11:24] LABS: BASOPHILS # (AUTO) 0.1 10^3/uL (0.0-0.1); BASOPHILS % (AUTO) 1 % (0-10); EOSINOPHILS # (AUTO) 0.7 10^3/uL (0.0-0.3); EOSINOPHILS % (AUTO) 8 % (0-10); LYMPHOCYTES # (AUTO) 1.9 X 10^3 (1.0-4.0); LYMPHOCYTES % (AUTO) 23 % (12-44); MEAN CORPUSCULAR HGB CONC 33 G/DL (32-36); MEAN CORPUSCULAR VOLUME 93 FL (80-99); MONOCYTES # (AUTO) 0.4 X 10^3 (0.0-1.0); MONOCYTES % (AUTO) 5 % (0-12); NEUTROPHILS # (AUTO) 5.2 X 10^3 (1.8-7.8); NEUTROPHILS % (AUTO) 63 % (42-75); PLATELET COUNT 235 10^3/uL (130-400)
[2020-09-02 11:47] LABS: INR 1.3 (0.8-1.4); PROTHROMBIN TIME PATIENT 16.1 SEC (12.2-14.7)
[2020-09-02 11:56] LABS: POTASSIUM 4.1 MMOL/L (3.6-5.0)
[2020-09-02 11:57] LABS: BILIRUBIN,TOTAL 0.5 MG/DL (0.1-1.0); CALCIUM 9.7 MG/DL (8.5-10.1); CREATININE SERUM 0.94 MG/DL (0.60-1.30); TOTAL PROTEIN 6.4 GM/DL (6.4-8.2)
== END ==
LOC: LAB FS 11:01
PROVIDERS: ATTEND Nurse Practitioner Family
DX: R04.0 Epistaxis (principal); Z92.29 Personal history of other drug therapy; Z79.899 Other long term (current) drug therapy
CPT/HCPCS: 36415; 80053; 85025; 85610; 85730

== ENCOUNTER → 2021-03-08 | Outpatient (CLI) | payer MEDICARE, MEDICAID ==
[~2021-03-08] MED LIST changes: -HYDR50TA3 PO; +HYDR50TA6 PO; -ISM60TCR PO; +ISOS60TA63 PO; -LISI-552 PO; -LISI10TA2 PO; +LISI10TA25 PO; +LISI20TA26 PO; -LISI40TA PO; +LISI40TA9 PO; -MONT10TA26 PO; +MONT10TA32 PO
--- NOTE | 2021-03-08 12:02 | Diagnostic Imaging Report ---
INDICATION: Postmenopausal. COMPARISON: None. FINDINGS: The total T-score for the spine is -1.9. The total T-score for the right hip is -1.6 and for the left hip -0.8. The T-score for the left femoral neck is -1.9 and for the right femoral neck -2.0. AP Spine L1-L4: [BMD (g/cm2): 0.973] [T-Score: -1.9] [Z-Score: -1.4] [BMD Previous: NA] [BMD % Change: NA] LT Hip Neck: [BMD (g/cm2): 0.776] [T-Score: -1.9] [Z-Score: -1.1] LT Hip Total: [BMD (g/cm2):0.912] [T-Score:-0.8] [Z-Score: -0.3] [BMD Previous: NA] [BMD % Change: NA] RT Hip Neck: [BMD (g/cm2):0.760] [T-Score:-2.0] [Z-Score:-1.2] RT Hip Total: [BMD (g/cm2):0.808] [T-score:-1.6] [Z-Score:-1.1] [BMD Previous:NA] [BMD % Change:NA] *Indicates significant change from prior examination based on 95% confidence level. World Health Organization criteria for BMD interpretation classify patients as Normal (T-score at or above -1.0), Osteopenic (T-score between -1.0 and -2.5) or Osteoporotic (T-score at or below -2.5). LIMITATIONS AND MODIFICATION: None. FRACTURE RISK (FRAX SCORE): The ten year probability of (%): Major Osteoporotic Fracture: [10.1] Hip Fracture: [1.6] IMPRESSION: 1. The T-score for the spine, the right total hip, and both femoral necks fall in the range of osteopenia. 2. The T-score for the total left hip is at the low end of normal. 3. See below National Osteoporosis Foundation guidelines on when to potentially initiate pharmacologic therapy. Based on the National Osteoporosis Foundation Guidelines, pharmacologic treatment should be initiated in any of the following, unless clinical conditions suggest otherwise: * Any patient with prior fragility fracture of the hip or vertebrae. A spine fracture indicates 5X risk for subsequent spine fracture and 2X risk for subsequent hip fracture. * Osteoporosis (T-score <-2.5). * Postmenopausal women and men age 50 and older with low bone mass/osteopenia (T-score between -1.0 and -2.5) by DXA and 10-year major osteoporotic fracture greater than 20% or a 10-year probability of hip fracture greater than 3%. These fracture risks are supplied above in the FRAX score, if applicable. * Clinician judgement and/or patient preferences may indicate treatment for people with 10-year fracture probabilities above or below these levels. Dictated by: Dictated on workstation # [id number]
== END ==
LOC: RAD 10:22
PROVIDERS: ATTEND Family Medicine
DX: M85.80 Other specified disorders of bone density and structure, unspecified site (principal); Z78.0 Asymptomatic menopausal state
CPT/HCPCS: 77080

== ENCOUNTER → 2021-09-21 | Outpatient (CLI) | payer MEDICARE, MEDICAID ==
[~2021-09-21] MED LIST changes: -BENA40TA5 PO; +BENA40TA84 PO; +CYCL10TA25 PO; -CYCL10TA9 PO; +MONT-40 PO; -MONT10TA32 PO; +POTA-169 PO; -POTA20TA8 PO
--- NOTE | 2021-09-21 11:56 | Diagnostic Imaging Report ---
PROCEDURE: CT abdomen and pelvis without contrast. TECHNIQUE: Multiple contiguous axial images were obtained through the abdomen and pelvis without the use of intravenous contrast. Auto Exposure Controls were utilized during the CT exam to meet ALARA standards for radiation dose reduction. INDICATION: Abdominal and bladder pressure. Patient has history of urinary tract infections and left renal mass. COMPARISON: Prior CT from 07/03/2019. FINDINGS: The lung bases are clear. The liver is unremarkable. The gallbladder is surgically absent. No biliary ductal dilatation is seen. The pancreas and spleen are unremarkable. No adrenal mass is detected. Postop changes of partial nephrectomy on the left are noted. There are no renal calculi identified. No definite ureteral calculus or hydronephrosis is identified. The aorta is nonaneurysmal. The small and large bowel loops are of normal caliber. There is no obstruction. There is diverticulosis involving the descending and sigmoid colon but no evidence of acute diverticulitis. There is no free fluid or fluid collection. The bladder is unremarkable. The uterus appears to be surgically absent. No abdominal or pelvic lymphadenopathy is identified. IMPRESSION: 1. Postop changes of partial nephrectomy on the left. No urinary tract calculus or obstruction is identified. 2. Uncomplicated diverticulosis. Dictated by: Dictated on workstation # [id number]
== END ==
LOC: RAD 09:45
PROVIDERS: ATTEND Urology
DX: K57.30 Diverticulosis of large intestine without perforation or abscess without bleeding (principal); Z90.5 Acquired absence of kidney; Z87.448 Personal history of other diseases of urinary system
CPT/HCPCS: 74176

== ENCOUNTER 2021-11-08 11:17 | Inpatient (IN) | payer MEDICARE, MEDICAID ==
[~2021-11-08] VITALS: Ht 165.1 cm; Wt 93.0 kg
[~2021-11-08 11:17] MED LIST changes: -FLUT16SP22 NS; +FLUT16SP22 NSEACH
[2021-11-08] MEDS ORDERED: NS IV 500 ML 500 ML ONE (11:35)
[2021-11-08] MEDS ORDERED: ACETAMINOPHEN 500 MG TAB (TYLENOL) ONE (11:35)
[2021-11-08] MEDS ORDERED: ACETAMINOPHEN 500 MG TAB (TYLENOL) PO PRN (11:45)
[2021-11-08] MEDS ORDERED: NS IV 500 ML 500 ML IV ONE (11:45)
[2021-11-08 11:51] LABS: BASOPHILS % (AUTO) 0 % (0-10); EOSINOPHILS % (AUTO) 0 % (0-10); HEMATOCRIT 44 % (35-52); HEMOGLOBIN 14.6 g/dL (11.5-16.0); LYMPHOCYTES # (AUTO) 1.5 X 10^3 (1.0-4.0); LYMPHOCYTES % (AUTO) 14 % (12-44); MEAN CORPUSCULAR HEMOGLOBIN 29 pg (25-34); MEAN CORPUSCULAR HGB CONC 33 g/dL (32-36); MEAN CORPUSCULAR VOLUME 88 fL (80-99); MEAN PLATELET VOLUME 11.2 fL (9.0-12.2); MONOCYTES # (AUTO) 0.5 X 10^3 (0.0-1.0); MONOCYTES % (AUTO) 5 % (0-12); NEUTROPHILS # (AUTO) 8.7 X 10^3 (1.8-7.8); NEUTROPHILS % (AUTO) 81 % (42-75); PLATELET COUNT 162 10^3/uL (130-400); WHITE BLOOD COUNT 10.7 10^3/uL (4.3-11.0)
--- NOTE | 2021-11-08 11:56 | Diagnostic Imaging Report ---
EXAMINATION: Chest 1 view HISTORY: Cough, COVID positive COMPARISON: 05/14/2019. FINDINGS: Heart size and pulmonary vasculature are stable. There are mild bibasilar interstitial opacities. No pleural effusion or pneumothorax. The osseous structures are intact. IMPRESSION: 1. Cardiomegaly with mild bibasilar interstitial opacities which could be seen with pulmonary edema, atypical infection or atelectasis. Dictated by: Dictated on workstation # [id number]
[2021-11-08 12:05] LABS: INR 1.2 (0.8-1.4); PROTHROMBIN TIME PATIENT 15.6 SEC (12.2-14.7)
--- NOTE | 2021-11-08 12:08 | ED General ---
General Chief Complaint: COVID19 Suspect/Confirmed Stated Complaint: SOB; COVID+ Nursing Triage Note: PT REPORTS SHE HAS BEEN SICK WITH A RESPILLNESS FOR ABOUT A WEEK. SHE TESTED + FOR COVID YESTERDAY AT THE URGENT CARE. REPORTS COUGH, FEVER, AND VOMITING STARTED THIS AM. SHE REPORTS HER WHOLE FAMILY IS ILL WITH COVID. PT IS ON 3L OF OXYGEN AT HOME. Source of Information: Patient Exam Limitations: No Limitations History of Present Illness Date Seen by Provider: Nov 08, 2021 Time Seen by Provider: 11:27 Initial Comments Here with report of feeling ill over the last week. She was tested for COVID yesterday at the urgent care and found to be positive. She does report fever, chills, cough, shortness of breath and weakness. She started having vomiting today. States that her whole family is ill with COVID. She is normally on oxygen at 3 L and arrives on oxygen at 3 L with O2 sat in the mid 90s. States that she does not feel well overall. Timing/Duration: 1 Week, Getting Worse Severity: Moderate Associated Systoms: No Chest Pain; Cough, Fever/Chills, Nausea/Vomiting, Shortness of Air, Weakness Allergies and Home Medications Allergies Coded Allergies: Penicillins (Verified Allergy, Mild, RASH/HIVES, 03/04/20) Sulfa (Sulfonamide Antibiotics) (Verified Allergy, Mild, HIVES/RASH, 03/04/20) adhesive tape (Verified Allergy, Mild, REDNESS, 03/04/20) Patient Home Medication List Home Medication List Reviewed: Yes Albuterol Sulfate (Proair Hfa) 1 Puff Puff, 1 PUFF INH Q6H PRN for SHORTNESS OF BREATH, (Reported) Entered as Reported by: SAMSON POWERS on 07/10/17 1422 Amlodipine Besylate (Amlodipine Besylate) 10 Mg Tablet, 10 MG PO DAILY, (Reported) Entered as Reported by: SAMSON POWERS on 05/28/18920 Atorvastatin Calcium (Atorvastatin Calcium) 40 Mg Tablet, 40 MG PO HS, (Reported) Entered as Reported by: SAMSON POWERS on 05/28/18920 Cetirizine HCl (Cetirizine HCl) 10 Mg Tablet, 10 MG PO DAILY, (Reported) Entered as Reported by: SAMSON POWERS on 7/31/18 0921 Docusate Sodium (Stool Softener) 100 Mg Tablet, 100 MG PO DAILY, (Reported) Entered as Reported by: KELVIN KISER on 09/04/19 1341 Fluticasone Propionate (Fluticasone Propionate) 16 Gm Miller.susp, 2 SPRAY NS DAILY, (Reported) Entered as Reported by: SAMSON POWERS on 07/10/17 1427 Fluticasone/Salmeterol (Advair 250-50 Diskus) 1 Each Blst.w.dev, 1 PUFF INH BID, (Reported) Entered as Reported by: SAMSON POWERS on 05/28/18 0921 Fluticasone/Vilanterol (Breo Ellipta 200-25 Mcg INH) 1 Each Blst.w.dev, 1 PUFF PO DAILY, (Reported) Entered as Reported by: MIKI PURDY on 05/13/19 0825 Hydrochlorothiazide (Hydrochlorothiazide) 25 Mg Tablet, 25 MG PO DAILY, (Reported) Entered as Reported by: SAMSON POWERS on 01/23/19 0926 Ipratropium/Albuterol Sulfate (Iprat-Albut 0.5-3(2.5) mg/3 ml) 3 Ml Ampul.neb, 3 ML IH Q4H PRN for SHORTNESS OF BREATH, (Reported) Entered as Reported by: SAMSON POWERS on 01/23/19 0941 Isosorbide Mononitrate (Isosorbide Mononitrate ER) 60 Mg Tab, 60 MG PO DAILY, (Reported) Entered as Reported by: SAMSON POWERS on 01/23/19 0937 Metoprolol Succinate (Metoprolol Succinate) 25 Mg Tab.er.24h, 25 MG PO HS, (Reported) Entered as Reported by: KELVIN KISER on 09/04/19 1341 Montelukast Sodium (Montelukast Sodium) 10 Mg Tablet, 10 MG PO HS, (Reported) Entered as Reported by: KELVIN KISER on 03/12/17 1340 Multivitamin (Multiple Vitamins) 1 Each Tablet, 1 EACH PO DAILY, (Reported) Entered as Reported by: KELVIN KISER on 09/04/19 1341 Nitrofurantoin Monohyd/M-Cryst (Macrobid 100 mg Capsule) 100 Mg Capsule, 1 TAB PO BID WITH MEALS Prescribed by: MAKENNA HANSEN on 03/10/20 0811 Omeprazole (Omeprazole) 20 Mg Capsule.dr, 20 MG PO DAILY PRN for HEARTBURN, (Reported) Entered as Reported by: SAMSON POWERS on 07/10/17 1101 Ondansetron (Ondansetron Odt) 4 Mg Tab.rapdis, 4 MG PO Q6H PRN for NAUSEA/VOMITING-1ST LINE, (Reported) Entered as Reported by: SAMSON POWERS on 01/23/19 0926 Phenazopyridine HCl (Pyridium) 200 Mg Tablet, 1 TAB PO TID Prescribed by: MAKENNA HANSEN on 03/10/20 0811 Prednisone (Prednisone) 10 Mg Tab, 10 MG PO DAILY, (Reported) Entered as Reported by: KELVIN KISER on 09/04/19 1341 Spironolactone (Spironolactone) 25 Mg Tablet, 25 MG PO DAILY, (Reported) Entered as Reported by: SAMSON POWERS on 05/28/18 0921 Tramadol HCl (Tramadol HCl) 50 Mg Tablet, 50 MG PO Q4H PRN for PAIN-MODERATE, (Reported) Entered as Reported by: SAMSON POWERS on 01/23/19 0926 Review of Systems Review of Systems Constitutional: see HPI EENTM: nose congestion; No throat pain Respiratory: cough, short of breath, wheezing Cardiovascular: No chest pain; edema; No palpitations Gastrointestinal: nausea, vomiting Genitourinary: no symptoms reported Musculoskeletal: No back pain, No joint pain; muscle pain Skin: no symptoms reported All Other Systems Reviewed Negative Unless Noted: Yes Past Wyjccib-Joduci-Idfxyo Hx Patient Social History Tobacco Use?: No Use of E-Cig and/or Vaping dev: No Substance use?: No Alcohol Use?: No Pt feels they are or have been: No Immunizations Up To Date Tetanus Booster (TDap): Unknown Influenza Vaccine Up-to-Date: No; Not Current First/Initial COVID19 Vaccinat: 2020 Second COVID19 Vaccination Mack: 2020 COVID19 Vaccine Bow 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: [employer] Seasonal Allergies Seasonal Allergies: Yes Past Medical History Surgery/Hospitalization HX: COPD, CHF Surgeries: Yes Appendectomy, Coronary Stent, Hysterectomy, Tonsillectomy Respiratory: Yes (2L O2 @ HS) Asthma, COPD Currently Using CPAP: No Currently Using BIPAP: No Cardiac: Yes (STENTS) Atrial Fibrillation, Coronary Artery Disease, Deep Vein Thrombosis, Hypertension Neurological: Yes Stroke Reproductive Disorders: No Sexually Transmitted Disease: No HIV/AIDS: No Genitourinary: Yes (Left kidney partially removed d/t cancer) Bladder Infection, UTI-Chronic Gastrointestinal: Yes Gastroesophageal Reflux, Chronic Constipation Musculoskeletal: No Arthritis, Chronic Back Pain Endocrine: No HEENT: No Loss of Vision: Denies Hearing Impairment: Denies Cancer: No Kidney Did You Recieve Any Treatments: Yes What Type of Treatment Did You: Surgical Intervention Psychosocial: Yes Anxiety, Depression Integumentary: No Blood Disorders: No Adverse Reaction/Blood Tranf: No (N/A) Family Medical History Reviewed Nursing Family Hx Colon cancer G8 BROTHER Diabetes mellitus G8 BROTHER G8 SISTER FHx: heart disease 19 FATHER 19 MOTHER Myocardial infarction 19 FATHER G8 SISTER COPD Physical Exam-Suspected Sepsis Physical Exam Vital Signs Vital Signs - First Documented 11/08/21 11:25 Temp 39.1 Pulse 88 Resp 27 B/P (MAP) 137/50 (79) Pulse Ox 95 O2 Delivery Nasal Cannula O2 Flow Rate 3.00 FiO2 95 Capillary Refill : Less Than 3 Seconds Blood Pressure Mean: 79 Height, Weight, BMI Height: 5'5.00" Weight: 237lbs. 4.0oz. [id number]; 35.00 BMI Method:Stated General Appearance: No Apparent Distress, WD/WN HEENT: PERRL/EOMI, Other (Mucous membranes dry) Neck: Non Tender, Supple Respiratory: Lungs Clear, Normal Breath Sounds Cardiovascular: Irregularly Irregular, Tachycardia Gastrointestinal: Non Tender, Soft Back: Normal Inspection, No CVA Tenderness, No Vertebral Tenderness Extremity: Normal Range of Motion, Non Tender, Pedal Edema (Trace bilateral) Neurologic/Psychiatric: Alert, Oriented x3 Skin: normal color, warm/dry Focused Exam Lactate Level 11/08/21 11:25: Lactic Acid Level 3.69*H 11/08/21 13:30: Lactic Acid Level 1.35 Lactic Acid Level Laboratory Tests Test 11/08/21 11:25 11/08/21 13:30 Lactic Acid Level 3.69 MMOL/L (0.50-2.00) *H 1.35 MMOL/L (0.50-2.00) Procedures/Interventions Date of ETT Placement: May 31, 2018 Time of ETT Placement: 1155 Progress/Results/Core Measures Suspected Sepsis SIRS Temperature: Pulse: 88 Respiratory Rate: 27 Laboratory Tests 11/08/21 11:25: White Blood Count 10.7 Blood Pressure 137 /50 Mean: 79 11/08/21 11:25: Lactic Acid Level 3.69*H 11/08/21 13:30: Lactic Acid Level 1.35 Laboratory Tests 11/08/21 11:25: Creatinine 0.95, INR Comment 1.2, Platelet Count 162, Total Bilirubin 0.6 Results/Orders Lab Results Laboratory Tests Test 11/08/21 11:25 11/08/21 13:30 Range/Units White Blood Count 10.7 4.3-11.0 10^3/uL Red Blood Count 4.97 3.80-5.11 10^6/uL Hemoglobin 14.6 11.5-16.0 g/dL Hematocrit 44 35-52 % Mean Corpuscular Volume 88 80-99 fL Mean Corpuscular Hemoglobin 29 25-34 pg Mean Corpuscular Hemoglobin Concent 33 32-36 g/dL Red Cell Distribution Width 13.3 10.0-14.5 % Platelet Count 162 130-400 10^3/uL Mean Platelet Volume 11.2 9.0-12.2 fL Neutrophils (%) (Auto) 81 H 42-75 % Lymphocytes (%) (Auto) 14 12-44 % Monocytes (%) (Auto) 5 0-12 % Eosinophils (%) (Auto) 0 0-10 % Basophils (%) (Auto) 0 0-10 % Neutrophils # (Auto) 8.7 H 1.8-7.8 X 10^3 Lymphocytes # (Auto) 1.5 1.0-4.0 X 10^3 Monocytes # (Auto) 0.5 0.0-1.0 X 10^3 Eosinophils # (Auto) 0.0 0.0-0.3 10^3/uL Basophils # (Auto) 0.0 0.0-0.1 10^3/uL Prothrombin Time 15.6 H 12.2-14.7 SEC INR Comment 1.2 0.8-1.4 Activated Partial Thromboplast Time 27 24-35 SEC D-Dimer 1.07 H 0.00-0.49 UG/ML Sodium Level 140 135-145 MMOL/L Potassium Level 3.8 3.6-5.0 MMOL/L Chloride Level 103 98-107 MMOL/L Carbon Dioxide Level 21 21-32 MMOL/L Anion Gap 16 H 5-14 MMOL/L Blood Urea Nitrogen 25 H 7-18 MG/DL Creatinine 0.95 0.60-1.30 MG/DL Estimat Glomerular Filtration Rate 58 BUN/Creatinine Ratio 26 Glucose Level 163 H 70-105 MG/DL Lactic Acid Level 3.69 *H 1.35 0.50-2.00 MMOL/L Calcium Level 9.6 8.5-10.1 MG/DL Corrected Calcium 9.5 8.5-10.1 MG/DL Total Bilirubin 0.6 0.1-1.0 MG/DL Aspartate Amino Transf (AST/SGOT) 17 5-34 U/L Alanine Aminotransferase (ALT/SGPT) 12 0-55 U/L Alkaline Phosphatase 54 40-136 U/L C-Reactive Protein 1.72 H <0.50 MG/DL Pro-B-Type Natriuretic Peptide 1468.0 H <75.0 PG/ML Total Protein 6.8 6.4-8.2 GM/DL Albumin 4.1 3.2-4.5 GM/DL My Orders Orders - TALI HARKINS MD Cbc With Automated Diff (11/08/21 11:36) Comprehensive Metabolic Panel (11/08/21 11:36) Blood Culture (11/08/21 11:36) Sputum Culture (11/08/21 11:36) Urinalysis (11/08/21 11:36) Urine Culture (11/08/21 11:36) Protime With Inr (11/08/21 11:36) Partial Thromboplastin Time (11/08/21 11:36) Chest 1 View Ap/Pa Only (11/08/21 11:36) Acetaminophen Tablet (Tylenol Tablet) (11/08/21 11:45) Ed Iv/Invasive Line Start (11/08/21 11:36) Vital Signs Adult Sepsis Patie Q15M (11/08/21 11:36) O2 (11/08/21 11:36) Remove Rings In Anticipation O (11/08/21 11:36) Lactic Acid Analyzer (11/08/21 11:36) Covid-19 External Lab Results (11/08/21 11:36) Isolation Central Supply Req (11/08/21 11:36) Ed Iv/Invasive Line Start (11/08/21 11:36) Ns Iv 500 Ml (Sodium Chloride 0.9%) (11/08/21 11:45) Fibrin Degradation Products (11/08/21 11:36) Probnp Fs (11/08/21 11:36) Crp Fs (11/08/21 11:36) Acetaminophen Tablet (Tylenol Tablet) (11/08/21 11:35) Ns Iv 500 Ml (Sodium Chloride 0.9%) (11/08/21 11:35) Ekg Tracing (11/08/21 11:30) Ed Admission (Communication) (11/08/21 13:55) Dexamethasone Injection (Decadron Inje (11/08/21 14:15) Medications Given in ED Current Medications Medications Dose Ordered Sig/Jose Route Start Time Stop Time Status Last Admin Dose Admin Acetaminophen 1,000 mg ONCE PRN PO 11/08/21 11:45 11/08/21 11:45 DC 11/08/21 11:41 1,000 MG Sodium Chloride 500 ml @ 0 mls/hr Q0M ONCE IV 11/08/21 11:45 11/08/21 11:46 DC 11/08/21 11:40 1,000 MLS/HR Vital Signs/I&O 11/08/21 11/08/21 11/08/21 11/08/21 11:25 11:25 11:25 11:41 Temp 39.1 39.1 Pulse 88 Resp 27 B/P (MAP) 137/50 (79) Pulse Ox 95 96 O2 Delivery Nasal Cannula Nasal Cannula Nasal Cannula O2 Flow Rate 3.00 3.00 3.00 FiO2 95 Capillary Refill : Less Than 3 Seconds Blood Pressure Mean: 79 Progress Note : Progress Note Seen and evaluated. IV, labs, EKG and chest x-ray ordered. Sepsis protocol initiated. Patient is COVID-positive and those precautions are in place. Normal saline 500 mL bolus and Tylenol 1 g p.o. ordered. Patient is febrile. Remains on 3 L of oxygen via nasal cannula with O2 saturation 95%. Monitor patient. 1355: Patient has elevated BNP as well as chest x-ray concerning for pulmonary edema versus atypical viral pneumonia. She has COPD as well as COVID- 19 infection. She is on Xarelto for her atrial fibrillation. She does have elevated lactic acid which I believe is related to CHF exacerbation and hypoxia. Given patient's multiple comorbidities and current findings, patient will need admission to the hospital. Despite elevated lactic acid, I do not believe this is a bacterial pneumonia requiring sepsis intervention or antibiotics at this time. This was discussed with Dr. Burger and she agrees. She will order a procalcitonin on admission and evaluate further for bacterial component but again, we both agree that this is related to the CHF and COVID currently and antibiotics are not required. Admission discussed with patient who agrees. Admit, inpatient status. Patient agrees with plan. ECG Initial ECG Impression Date: Nov 08, 2021 Initial ECG Impression Time: 11:30 Initial ECG Rate: 93 Initial ECG Rhythm: A Fib/Flutter Initial ECG Impression: Atrial Fibrillation Comment Atrial fibrillation with left ventricular hypertrophy and incomplete left bundle branch block. Left axis deviation. No evidence of ST elevation PR. Similar to previous of 05/12/2019. Interpreted by me. Diagnostic Imaging Diagonstic Imaging: Xray Plain Films/CT/US/NM/MRI: chest Comments [facility], [facility]. [place], [place] NAME: JAIDEN ZELAYA [facility] REC#: [id number] PT STATUS: REG ER : 1955 PHYSICIAN: TALI HARKINS MD ADMIT DATE: 11/08/21/ER FS Draft Date of Exam:11/08/21 CHEST 1 VIEW AP/PA ONLY EXAMINATION: Chest 1 view HISTORY: Cough, COVID positive COMPARISON: 05/14/2019. FINDINGS: Heart size and pulmonary vasculature are stable. There are mild bibasilar interstitial opacities. No pleural effusion or pneumothorax. The osseous structures are intact. IMPRESSION: 1. Cardiomegaly with mild bibasilar interstitial opacities which could be seen with pulmonary edema, atypical infection or atelectasis. Dictated on workstation # [id number] Dict: 11/08/21 1152 Trans: 11/08/21 1156 [id number] Interpreted by: ELY TERESA DO Electronically signed by: Departure Communication (Admissions) Time/Spoke to Admitting Phy: 13:55 Impression Primary Impression: CHF, acute on chronic Qualified Codes: I50.9 - Heart failure, unspecified Additional Impression: Pneumonia due to COVID-19 virus Disposition: 30 STILL A PATIENT Condition: Stable Admissions Decision to Admit Reason: Admit from ER (General) Decision to Admit/Date: Nov 08, 2021 Time/Decision to Admit Time: 13:55 Departure-Patient Inst. Referrals: ANGELITO CHU MD (PCP/Family) Primary Care Physician TALI HARKINS MD Nov 08, 2021 12:08
[2021-11-08 12:20] LABS: BILIRUBIN,TOTAL 0.6 MG/DL (0.1-1.0); CALCIUM 9.6 MG/DL (8.5-10.1); CREATININE SERUM 0.95 MG/DL (0.60-1.30)
[2021-11-08 12:21] LABS: ALBUMIN 4.1 GM/DL (3.2-4.5); TOTAL PROTEIN 6.8 GM/DL (6.4-8.2)
[2021-11-08 12:22] LABS: POTASSIUM 3.8 MMOL/L (3.6-5.0)
[2021-11-08 12:26] LABS: FIBRIN DEGRADATION PRODUCTS 1.07 UG/ML (0.00-0.49)
[2021-11-08] MEDS ORDERED: guaiFENesin SYRUP 100 MG/5 ML 10 ML (ROBITUSSIN SF) PO SCH (15:15)
[2021-11-08] MEDS ORDERED: ACETAMINOPHEN 325 MG TABLET PO PRN (15:15)
[2021-11-08 15:49] VITALS: BP 106/66
[2021-11-08] MEDS ORDERED: FLU QUAD HIGH DOSE 240 MCG/0.7 ML 2021-22 (FLUZONE) IM ONE (17:00)
[2021-11-08 18:38] LABS: AMORPHOUS SEDIMENT,UR FEW AMOR URATES /LPF; BACTERIA,URINE LARGE /HPF; BILIRUBIN,URINE NEGATIVE (NEGATIVE); CLARITY,URINE CLEAR; COLOR,URINE YELLOW; GLUCOSE, URINE (UA) NEGATIVE (NEGATIVE); KETONES,URINE 1+ (NEGATIVE); LEUKOCYTE ESTERASE ,URINE TRACE (NEGATIVE); NITRITE,URINE POSITIVE (NEGATIVE); PH,URINE 5.5 (5-9); PROTEIN,URINE NEGATIVE (NEGATIVE)
[2021-11-08 19:41] VITALS: BP 127/78
[2021-11-08] MEDS: guaiFENesin SYRUP 100 MG/5 ML 10 ML (ROBITUSSIN SF) PO SCH (20:16)
[2021-11-09] VITALS (7 sets, daily range): BP systolic 112–152; BP diastolic 73–83
[2021-11-09] MEDS: guaiFENesin SYRUP 100 MG/5 ML 10 ML (ROBITUSSIN SF) PO SCH ×7 (00:48→23:24)
[2021-11-09] MEDS ORDERED: AZIT250T12 PO (12:53)
[2021-11-09] MEDS ORDERED: MTP100TCR PO (12:53)
[2021-11-09] MEDS ORDERED: FURO20TA4 PO (12:53)
[2021-11-09] MEDS ORDERED: CLOP75TA28 PO (12:53)
[2021-11-09] MEDS ORDERED: APIX5TAB PO (12:53)
[2021-11-09] MEDS ORDERED: LISI2.5T13 PO (12:53)
[2021-11-09] MEDS ORDERED: PRD10T PO (12:53)
--- NOTE | 2021-11-09 19:07 | History & Physical ---
HPI History of Present Illness: 66 yo F that has been having symptoms of Covid for the last 6 days. She tested positive yesterday. States that she has not been around anyone that was known to have Covid. Patient has baseline oxygen requirement at night 2-3 LPM but she is on RA during the day. States that she is feeling alittle bit better today but s he has not tried to get out of bed. Source: patient Exam Limitations: no limitations Date seen by provider: Nov 09, 2021 Time Seen by Provider: 10:15 Attending Physician Billy Burger MD PCP Rafita Love MD Consult Date of Admission Nov 08, 2021 at 15:15 Home Medications Home Medications Reviewed patient Home Medication Reconciliation performed by pharmacy medication reconciliations crime lab technician and/or nursing. Patients Allergies have been reviewed. Allergies Coded Allergies: Penicillins (Verified Allergy, Mild, RASH/HIVES, 03/04/20) Sulfa (Sulfonamide Antibiotics) (Verified Allergy, Mild, HIVES/RASH, 03/04/20) adhesive tape (Verified Allergy, Mild, REDNESS, 03/04/20) EME-Ypoolq-Dfnosc Hx Patient Social History Smoking Status: Never a Smoker 2nd Hand Smoke Exposure: No Recent Hopitalizations: No Alcohol Use?: No Have you traveled recently?: No Immunizations Up To Date Tetanus Booster (TDap): Unknown Influenza Vaccine Up-to-Date: No; Not Current First/Initial COVID19 Vaccinat: 2020 Second COVID19 Vaccination Mack: 2020 COVID19 Vaccine Want Ad Receiver: Moderna Past Medical History COPD HTN Atrial Fibrillation Family Medical History Significant Family History: COPD Family History: Colon cancer G8 BROTHER Diabetes mellitus G8 BROTHER G8 SISTER FHx: heart disease 19 FATHER 19 MOTHER Myocardial infarction 19 FATHER G8 SISTER Review of Systems (CHC) Constitutional: No chills, No fever EENTM: no symptoms reported; No nose congestion, No throat pain Respiratory: cough, dyspnea on exertion, short of breath Cardiovascular: no symptoms reported; No chest pain, No edema, No palpitations Gastrointestinal: no symptoms reported; No abdominal pain, No constipation, No diarrhea, No nausea, No vomiting Genitourinary: no symptoms reported; No dysuria, No frequency, No hematuria : No Musculoskeletal: no symptoms reported; No back pain, No joint pain, No muscle pain Skin: no symptoms reported; No lesions, No rash Psychiatric/Neurological: No Symptoms Reported; Denies Weakness Reviewed Test Results Reviewed Test Results Lab Laboratory Tests Test 11/08/21 11:25 11/08/21 13:30 11/08/21 16:52 11/08/21 18:05 Range/Units White Blood Count 10.7 4.3-11.0 10^3/uL Red Blood Count 4.97 3.80-5.11 10^6/uL Hemoglobin 14.6 11.5-16.0 g/dL Hematocrit 44 35-52 % Mean Corpuscular Volume 88 80-99 fL Mean Corpuscular Hemoglobin 29 25-34 pg Mean Corpuscular Hemoglobin Concent 33 32-36 g/dL Red Cell Distribution Width 13.3 10.0-14.5 % Platelet Count 162 130-400 10^3/uL Mean Platelet Volume 11.2 9.0-12.2 fL Neutrophils (%) (Auto) 81 H 42-75 % Lymphocytes (%) (Auto) 14 12-44 % Monocytes (%) (Auto) 5 0-12 % Eosinophils (%) (Auto) 0 0-10 % Basophils (%) (Auto) 0 0-10 % Neutrophils # (Auto) 8.7 H 1.8-7.8 X 10^3 Lymphocytes # (Auto) 1.5 1.0-4.0 X 10^3 Monocytes # (Auto) 0.5 0.0-1.0 X 10^3 Eosinophils # (Auto) 0.0 0.0-0.3 10^3/uL Basophils # (Auto) 0.0 0.0-0.1 10^3/uL Prothrombin Time 15.6 H 12.2-14.7 SEC INR Comment 1.2 0.8-1.4 Activated Partial Thromboplast Time 27 24-35 SEC D-Dimer 1.07 H 0.00-0.49 UG/ML Sodium Level 140 135-145 MMOL/L Potassium Level 3.8 3.6-5.0 MMOL/L Chloride Level 103 98-107 MMOL/L Carbon Dioxide Level 21 21-32 MMOL/L Anion Gap 16 H 5-14 MMOL/L Blood Urea Nitrogen 25 H 7-18 MG/DL Creatinine 0.95 0.60-1.30 MG/DL Estimat Glomerular Filtration Rate 58 BUN/Creatinine Ratio 26 Glucose Level 163 H 70-105 MG/DL Lactic Acid Level 3.69 *H 1.35 0.50-2.00 MMOL/L Calcium Level 9.6 8.5-10.1 MG/DL Corrected Calcium 9.5 8.5-10.1 MG/DL Total Bilirubin 0.6 0.1-1.0 MG/DL Aspartate Amino Transf (AST/SGOT) 17 5-34 U/L Alanine Aminotransferase (ALT/SGPT) 12 0-55 U/L Alkaline Phosphatase 54 40-136 U/L C-Reactive Protein 1.72 H <0.50 MG/DL Pro-B-Type Natriuretic Peptide 1468.0 H <75.0 PG/ML Total Protein 6.8 6.4-8.2 GM/DL Albumin 4.1 3.2-4.5 GM/DL Procalcitonin 5.65 H <0.10 NG/ML Urine Color YELLOW Urine Clarity CLEAR Urine pH 5.5 5-9 Urine Specific [place] >=1.030 1.016-1.022 Urine Protein NEGATIVE NEGATIVE Urine Glucose (UA) NEGATIVE NEGATIVE Urine Ketones 1+ H NEGATIVE Urine Nitrite POSITIVE H NEGATIVE Urine Bilirubin NEGATIVE NEGATIVE Urine Urobilinogen 0.2 < = 1.0 MG/DL Urine Leukocyte Esterase TRACE H NEGATIVE Urine RBC (Auto) 1+ H NEGATIVE Urine RBC 2-5 H /HPF Urine WBC 5-10 H /HPF Urine Crystals PRESENT H /LPF Urine Amorphous Sediment FEW OPAL URATES H /LPF Urine Bacteria LARGE H /HPF Urine Casts NONE /LPF Urine Mucus SMALL H /LPF Urine Culture Indicated CULTURE PENDING Physical Exam-(CHC) Physical Exam Vital Signs VS - Last 72 Hours, by Label 11/08/21 11/08/21 11/08/21 11/08/21 11:25 11:25 11:25 11:41 Temp 39.1 39.1 Pulse 88 Resp 27 B/P (MAP) 137/50 (79) Pulse Ox 95 96 O2 Delivery Nasal Cannula Nasal Cannula Nasal Cannula O2 Flow Rate 3.00 3.00 3.00 FiO2 95 11/08/21 11/08/21 11/08/21 11/08/21 14:30 15:49 16:07 16:13 Temp 37.2 37.0 Pulse 72 62 81 Resp 16 24 B/P (MAP) 134/62 106/66 (79) Pulse Ox 97 96 O2 Delivery Nasal Cannula Nasal Cannula Nasal Cannula O2 Flow Rate 3.00 3.00 3.00 11/08/21 11/08/21 11/08/21 11/08/21 19:00 19:31 19:41 21:44 Temp 36.9 Pulse 84 63 Resp 26 B/P (MAP) 127/78 (94) Pulse Ox 97 96 O2 Delivery Nasal Cannula Nasal Cannula Nasal Cannula O2 Flow Rate 3.00 3.00 3.00 11/09/21 11/09/21 11/09/21 11/09/21 00:30 01:00 03:13 04:19 Temp 36.8 36.8 Pulse 71 70 76 Resp 21 21 B/P (MAP) 112/76 (88) 152/80 (104) Pulse Ox 99 98 98 O2 Delivery Nasal Cannula Nasal Cannula Nasal Cannula O2 Flow Rate 3.00 3.00 3.00 11/09/21 11/09/21 11/09/21 11/09/21 07:00 08:00 08:52 11:59 Temp 35.0 35.4 Pulse 56 70 66 Resp 20 20 B/P (MAP) 129/82 (98) 128/78 (95) Pulse Ox 98 97 O2 Delivery Nasal Cannula Nasal Cannula Nasal Cannula O2 Flow Rate 3.00 3.00 3.00 11/09/21 11/09/21 11/09/21 13:00 15:48 16:07 Temp 35.4 Pulse 64 64 Resp 20 B/P (MAP) 135/83 (100) Pulse Ox 98 96 O2 Delivery Nasal Cannula Nasal Cannula O2 Flow Rate 3.00 3.00 Capillary Refill : Less Than 3 Seconds General Appearance: WD/WN, mild distress Neck: non-tender, full range of motion Respiratory: chest non-tender, decreased breath sounds, crackles, wheezing Cardiovascular: normal peripheral pulses, regular rate, rhythm, no edema, no murmur Gastrointestinal: normal bowel sounds, non tender, soft Back: no CVA tenderness, no vertebral tenderness Extremities: normal range of motion, non-tender, no pedal edema, no calf te nderness, normal capillary refill Neurologic/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 tested, no motor/sensory deficits, alert, normal mood/affect, oriented x 3 Skin: normal color, warm/dry Lymphatic: no adenopathy Assessment/Plan Assessment/Plan Admission Status: Inpatient Order (span 2 midnights) Reason for Inpatient Admission: needs close monitoring, high risk for decompensation (1) Acute hypoxemic respiratory failure due to COVID-19 Status: Acute Assessment & Plan: -NC, MAT protocol, steroids, will continue to monitor (2) Pneumonia due to COVID-19 virus Status: Acute Assessment & Plan: - Antibiotics (3) Acute CHF (congestive heart failure) Status: Acute Assessment & Plan: - strict I/Os, IV lasix Qualifiers: Qualified Codes: I50.21 - Acute systolic (congestive) heart failure (4) Atrial fibrillation Status: Chronic Assessment & Plan: - Continue OAC Qualifiers: Qualified Codes: I48.0 - Paroxysmal atrial fibrillation (5) Essential (primary) hypertension Status: Chronic Assessment & Plan: - Continue home meds BILLY BURGER MD Nov 09, 2021 19:07
[2021-11-09] MEDS: amLODIPine 10 MG (NORVASC) TAB PO SCH (20:20)
[2021-11-09] MEDS: APIXABAN 5 MG (ELIQUIS) TABLET PO SCH (20:20)
[2021-11-10 04:16] VITALS: BP 148/88
[2021-11-10] MEDS: guaiFENesin SYRUP 100 MG/5 ML 10 ML (ROBITUSSIN SF) PO SCH ×5 (06:21→21:20)
[2021-11-10 06:40] LABS: BASOPHILS % (AUTO) 0 % (0-10); EOSINOPHILS % (AUTO) 0 % (0-10); HEMATOCRIT 40 % (35-52); HEMOGLOBIN 13.4 g/dL (11.5-16.0); LYMPHOCYTES # (AUTO) 1.4 10^3/uL (1.0-4.0); LYMPHOCYTES % (AUTO) 14 % (12-44); MEAN CORPUSCULAR HEMOGLOBIN 30 pg (25-34); MEAN CORPUSCULAR HGB CONC 33 g/dL (32-36); MEAN CORPUSCULAR VOLUME 89 fL (80-99); MONOCYTES # (AUTO) 0.3 10^3/uL (0.0-1.0); MONOCYTES % (AUTO) 3 % (0-12); NEUTROPHILS # (AUTO) 8.2 10^3/uL (1.8-7.8); NEUTROPHILS % (AUTO) 82 % (42-75); PLATELET COUNT 143 10^3/uL (130-400)
[2021-11-10 06:51] LABS: ALBUMIN 3.4 GM/DL (3.2-4.5)
[2021-11-10 06:52] LABS: POTASSIUM 4.2 MMOL/L (3.6-5.0)
[2021-11-10 06:53] LABS: CALCIUM 9.5 MG/DL (8.5-10.1)
[2021-11-10 06:54] LABS: TOTAL PROTEIN 6.2 GM/DL (6.4-8.2)
[2021-11-10 06:56] LABS: BILIRUBIN,TOTAL 0.5 MG/DL (0.1-1.0)
[2021-11-10 06:58] LABS: CREATININE SERUM 0.72 MG/DL (0.60-1.30)
[2021-11-10 08:25] VITALS: BP 124/64
[2021-11-10] MEDS: CLOPIDOGREL 75 MG (PLAVIX) TABLET PO SCH (10:18)
[2021-11-10] MEDS: APIXABAN 5 MG (ELIQUIS) TABLET PO SCH ×2 (10:18→20:34)
[2021-11-10] MEDS: meTOprolol SUCCINATE 100 MG (TOPROL XL) TAB PO SCH (10:18)
[2021-11-10 11:55] VITALS: BP 127/66
[2021-11-10 16:04] VITALS: BP 156/72
[2021-11-10 19:04] VITALS: BP 178/82
[2021-11-10] MEDS: amLODIPine 10 MG (NORVASC) TAB PO SCH (20:34)
--- NOTE | 2021-11-10 21:39 | Progress Note ---
Subjective Subjective/Events-last exam Patient states that she is still feeling short of breath. Tolerating PO diet. Got up to chair this AM. Review of Systems General: Fatigue, Malaise Pulmonary: Dyspnea, Cough Cardiovascular: No: Chest Pain, Palpitations, Edema Gastrointestinal: No: Nausea, Vomiting, Abdominal Pain, Diarrhea, Constipation Neurological: Weakness, Incoordination Focused Exam Lactate Level 11/08/21 11:25: Lactic Acid Level 3.69*H 11/08/21 13:30: Lactic Acid Level 1.35 Objective Exam Last Set of Vital Signs Vital Signs Date Time Temp Pulse Resp B/P (MAP) Pulse Ox O2 Delivery O2 Flow Rate FiO2 11/10/21 19:04 36.4 64 20 178/82 (114) 97 Nasal Cannula 2.00 11/08/21 11:25 95 Capillary Refill : Less Than 3 Seconds I&O Intake and Output 11/10/21 00:00 Intake Total 1470 ml Balance 1470 ml Intake Oral 1470 ml # Voids 8 General: Alert, Oriented X3, Cooperative, No Acute Distress HEENT: Mucous Memb Moist/[place] Lungs: Other (end exp wheezing, increased work of breathing with activity) Heart: Regular Rate, No Murmurs Abdomen: Normal Bowel Sounds, Soft, No Tenderness, No Masses Extremities: No Edema, No Tenderness/Swelling Neuro: Normal Speech Results/Procedures Lab Laboratory Tests 11/10/21 06:17: White Blood Count 10.0, Red Blood Count 4.54, Hemoglobin 13.4, Hematocrit 40, Mean Corpuscular Volume 89, Mean Corpuscular Hemoglobin 30, Mean Corpuscular Hemoglobin Concent 33, Red Cell Distribution Width 13.3, Platelet Count 143, Mean Platelet Volume 12.0, Immature Granulocyte % (Auto) 1, Neutrophils (%) (Auto) 82H, Lymphocytes (%) (Auto) 14, Monocytes (%) (Auto) 3, Eosinophils (%) (Auto) 0, Basophils (%) (Auto) 0, Neutrophils # (Auto) 8.2H, Lymphocytes # (Auto) 1.4, Monocytes # (Auto) 0.3, Eosinophils # (Auto) 0.0, Basophils # (Auto) 0.0, Immature Granulocyte # (Auto) 0.1, Sodium Level 139, Potassium Level 4.2, Chloride Level 108H, Carbon Dioxide Level 20L, Anion Gap 11, Blood Urea Nitrogen 17, Creatinine 0.72, Estimat Glomerular Filtration Rate 81, BUN/Creatinine Ratio 24, Glucose Level 153H, Calcium Level 9.5, Corrected Calcium 10.0, Total Bilirubin 0.5, Aspartate Amino Transf (AST/SGOT) 14, Alanine Aminotransferase (ALT/SGPT) 8, Alkaline Phosphatase 40, Total Protein 6.2L, Albumin 3.4 Microbiology 11/08/21 Urine Culture - Final, Complete Escherichia coli 11/08/21 Blood Culture - Preliminary, Resulted No growth Assessment/Plan Assessment/Plan (1) Acute hypoxemic respiratory failure due to COVID-19 Status: Acute Assessment & Plan: -NC, MAT protocol, steroids, will continue to monitor 11/10: Encouraged IS, MAT protocol, steroids (2) Pneumonia due to COVID-19 virus Status: Acute Assessment & Plan: - Antibiotics (3) Acute CHF (congestive heart failure) Status: Acute Assessment & Plan: - strict I/Os, IV lasix 11/10: Echo with preserved EF Qualifiers: Qualified Codes: I50.21 - Acute systolic (congestive) heart failure (4) UTI (urinary tract infection) Status: Acute Assessment & Plan: 11/10: Awaiting sensitivities, started on Rocephin Qualifiers: Qualified Codes: N30.00 - Acute cystitis without hematuria (5) Atrial fibrillation Status: Chronic Assessment & Plan: - Continue OAC Qualifiers: Qualified Codes: I48.0 - Paroxysmal atrial fibrillation (6) Essential (primary) hypertension Status: Chronic Assessment & Plan: - Continue home meds BILLY FITZGERALD MD Nov 10, 2021 21:39
[2021-11-11] MEDS: lisINopril 10 MG (PRINIVIL) TABLET PO SCH ×2 (00:11→09:51)
[2021-11-11 00:18] VITALS: BP 142/82
[2021-11-11] MEDS: guaiFENesin SYRUP 100 MG/5 ML 10 ML (ROBITUSSIN SF) PO SCH ×6 (00:33→21:18)
[2021-11-11 04:15] VITALS: BP 156/76
[2021-11-11 07:01] LABS: BASOPHILS % (AUTO) 0 % (0-10); EOSINOPHILS % (AUTO) 0 % (0-10); HEMATOCRIT 40 % (35-52); HEMOGLOBIN 13.4 g/dL (11.5-16.0); LYMPHOCYTES # (AUTO) 1.4 10^3/uL (1.0-4.0); LYMPHOCYTES % (AUTO) 17 % (12-44); MEAN CORPUSCULAR HEMOGLOBIN 29 pg (25-34); MEAN CORPUSCULAR HGB CONC 33 g/dL (32-36); MEAN CORPUSCULAR VOLUME 88 fL (80-99); MEAN PLATELET VOLUME 11.6 fL (9.0-12.2); MONOCYTES # (AUTO) 0.3 10^3/uL (0.0-1.0); MONOCYTES % (AUTO) 3 % (0-12); NEUTROPHILS # (AUTO) 6.6 10^3/uL (1.8-7.8); NEUTROPHILS % (AUTO) 78 % (42-75); PLATELET COUNT 164 10^3/uL (130-400); WHITE BLOOD COUNT 8.4 10^3/uL (4.3-11.0)
[2021-11-11 07:19] LABS: ALBUMIN 3.3 GM/DL (3.2-4.5); BILIRUBIN,TOTAL 0.6 MG/DL (0.1-1.0); CALCIUM 9.4 MG/DL (8.5-10.1); CREATININE SERUM 0.72 MG/DL (0.60-1.30); TOTAL PROTEIN 5.8 GM/DL (6.4-8.2)
[2021-11-11 08:00] VITALS: BP 137/78
[2021-11-11] MEDS: APIXABAN 5 MG (ELIQUIS) TABLET PO SCH ×2 (09:51→21:18)
[2021-11-11] MEDS: cefTRIAXone 1 GM PRE-MIX 50 ML IV SCH (09:52)
[2021-11-11] MEDS: meTOprolol SUCCINATE 100 MG (TOPROL XL) TAB PO SCH (09:52)
[2021-11-11] MEDS: CLOPIDOGREL 75 MG (PLAVIX) TABLET PO SCH (09:52)
[2021-11-11 12:00] VITALS: BP 145/78
[2021-11-11 15:57] VITALS: BP 140/95
--- NOTE | 2021-11-11 19:03 | Progress Note ---
Subjective Subjective/Events-last exam Patient still having shortness of breath. Tolerating PO diet. Review of Systems Pulmonary: Dyspnea, Cough Cardiovascular: No: Chest Pain, Palpitations, Edema Gastrointestinal: No: Nausea, Vomiting, Abdominal Pain, Diarrhea, Constipation Neurological: Weakness, Incoordination Objective Exam Last Set of Vital Signs Vital Signs Date Time Temp Pulse Resp B/P (MAP) Pulse Ox O2 Delivery O2 Flow Rate FiO2 11/11/21 15:57 35.9 54 20 140/95 (110) 97 Nasal Cannula 2.00 11/08/21 11:25 95 Capillary Refill : Less Than 3 Seconds I&O Intake and Output 11/11/21 00:00 Intake Total 1220 ml Balance 1220 ml Intake Oral 1220 ml # Voids 8 General: Alert, Oriented X3, Moderate Distress Lungs: Normal Air Movement Heart: Regular Rate, No Murmurs Abdomen: Normal Bowel Sounds, Soft, No Tenderness, No Masses Extremities: No Edema, No Tenderness/Swelling Neuro: Normal Speech Results/Procedures Lab Laboratory Tests 11/11/21 06:40: White Blood Count 8.4, Red Blood Count 4.56, Hemoglobin 13.4, Hematocrit 40, Mean Corpuscular Volume 88, Mean Corpuscular Hemoglobin 29, Mean Corpuscular Hemoglobin Concent 33, Red Cell Distribution Width 13.2, Platelet Count 164, Mean Platelet Volume 11.6, Immature Granulocyte % (Auto) 1, Neutrophils (%) (Auto) 78H, Lymphocytes (%) (Auto) 17, Monocytes (%) (Auto) 3, Eosinophils (%) (Auto) 0, Basophils (%) (Auto) 0, Neutrophils # (Auto) 6.6, Lymphocytes # (Auto) 1.4, Monocytes # (Auto) 0.3, Eosinophils # (Auto) 0.0, Basophils # (Auto) 0.0, Immature Granulocyte # (Auto) 0.1, Sodium Level 141, Potassium Level 4.0, [place]lo ride Level 108H, Carbon Dioxide Level 25, Anion Gap 8, Blood Urea Nitrogen 20H, Creatinine 0.72, Estimat Glomerular Filtration Rate 91, BUN/Creatinine Ratio 28, Glucose Level 127H, Calcium Level 9.4, Corrected Calcium 10.0, Total Bilirubin 0.6, Aspartate Amino Transf (AST/SGOT) 11, Alanine Aminotransferase (ALT/SGPT) 12, Alkaline Phosphatase 36L, Total Protein 5.8L, Albumin 3.3 Microbiology 11/08/21 Urine Culture - Final, Complete Escherichia coli 11/08/21 Blood Culture - Preliminary, Resulted No growth Assessment/Plan Assessment/Plan (1) Acute hypoxemic respiratory failure due to COVID-19 Status: Acute Assessment & Plan: -NC, MAT protocol, steroids, will continue to monitor 11/10: Encouraged IS, MAT protocol, steroids 11/11: Continue IV steroids, MAT protocol, discussed proning (2) Pneumonia due to COVID-19 virus Status: Acute Assessment & Plan: - Antibiotics (3) Acute CHF (congestive heart failure) Status: Acute Assessment & Plan: - strict I/Os, IV lasix 11/10: Echo with preserved EF Qualifiers: Qualified Codes: I50.21 - Acute systolic (congestive) heart failure (4) UTI (urinary tract infection) Status: Acute Assessment & Plan: 11/10: Awaiting sensitivities, started on Rocephin Qualifiers: Qualified Codes: N30.00 - Acute cystitis without hematuria (5) Atrial fibrillation Status: Chronic Assessment & Plan: - Continue OAC Qualifiers: Qualified Codes: I48.0 - Paroxysmal atrial fibrillation (6) Essential (primary) hypertension Status: Chronic Assessment & Plan: - Continue home meds BILLY FITZGERALD MD Nov 11, 2021 19:03
[2021-11-11 19:45] VITALS: BP 132/56
[2021-11-11] MEDS: amLODIPine 10 MG (NORVASC) TAB PO SCH (21:18)
[2021-11-12] VITALS (7 sets, daily range): BP systolic 126–138; BP diastolic 63–72
[2021-11-12] MEDS: guaiFENesin SYRUP 100 MG/5 ML 10 ML (ROBITUSSIN SF) PO SCH ×6 (02:01→20:15)
[2021-11-12 06:39] LABS: BASOPHILS % (AUTO) 0 % (0-10); EOSINOPHILS % (AUTO) 0 % (0-10); HEMATOCRIT 42 % (35-52); LYMPHOCYTES # (AUTO) 1.7 10^3/uL (1.0-4.0); LYMPHOCYTES % (AUTO) 19 % (12-44); MEAN CORPUSCULAR HEMOGLOBIN 29 pg (25-34); MEAN CORPUSCULAR HGB CONC 33 g/dL (32-36); MEAN CORPUSCULAR VOLUME 88 fL (80-99); MEAN PLATELET VOLUME 11.5 fL (9.0-12.2); MONOCYTES # (AUTO) 0.4 10^3/uL (0.0-1.0); MONOCYTES % (AUTO) 4 % (0-12); NEUTROPHILS # (AUTO) 6.7 10^3/uL (1.8-7.8); NEUTROPHILS % (AUTO) 75 % (42-75); PLATELET COUNT 197 10^3/uL (130-400)
[2021-11-12 06:50] LABS: ALBUMIN 3.2 GM/DL (3.2-4.5); POTASSIUM 4.4 MMOL/L (3.6-5.0)
[2021-11-12 06:51] LABS: CALCIUM 9.1 MG/DL (8.5-10.1)
[2021-11-12 06:53] LABS: TOTAL PROTEIN 5.9 GM/DL (6.4-8.2)
[2021-11-12 06:54] LABS: BILIRUBIN,TOTAL 0.6 MG/DL (0.1-1.0)
[2021-11-12 06:56] LABS: CREATININE SERUM 0.7 MG/DL (0.60-1.30)
[2021-11-12] MEDS: cefTRIAXone 1 GM PRE-MIX 50 ML IV SCH (08:52)
[2021-11-12] MEDS: meTOprolol SUCCINATE 100 MG (TOPROL XL) TAB PO SCH (08:52)
[2021-11-12] MEDS: CLOPIDOGREL 75 MG (PLAVIX) TABLET PO SCH (08:52)
[2021-11-12] MEDS: APIXABAN 5 MG (ELIQUIS) TABLET PO SCH ×2 (08:52→20:15)
[2021-11-12] MEDS: lisINopril 10 MG (PRINIVIL) TABLET PO SCH (08:52)
--- NOTE | 2021-11-12 11:28 | Progress Note - Hospitalist ---
Subjective HPI/CC On Admission Date Seen by Provider: Nov 12, 2021 Time Seen by Provider: 11:21 Subjective/Events-last exam Patient feeling little better with stable oxygen requirements. She denies chest pain or shortness of breath at rest appetite is improving. Denies nausea. Objective Exam Vital Signs Vital Signs Date Time Temp Pulse Resp B/P (MAP) Pulse Ox O2 Delivery O2 Flow Rate FiO2 11/12/21 08:23 36.5 44 16 133/71 (91) 97 Nasal Cannula 11/12/21 04:00 2.00 11/08/21 11:25 95 Capillary Refill : Less Than 3 Seconds General Appearance: No Apparent Distress, Chronically ill Respiratory: No Accessory Muscle Use, No Respiratory Distress, Other (Mild expiratory wheezing diminished breath sounds in both bases with a few fine rales to the mid lung ponce) Cardiovascular: Regular Rate, Rhythm, No Edema, No Gallop, No JVD, No Murmur, Normal Peripheral Pulses, Bradycardia Results/Procedures Lab Laboratory Tests 11/12/21 06:30 Patient resulted labs reviewed. Assessment/Plan Assessment and Plan Assess & Plan/Chief Complaint (1) Acute hypoxemic respiratory failure due to COVID-19 Status: Acute Assessment & Plan: -NC, MAT protocol, steroids, will continue to monitor 11/10: Encouraged IS, MAT protocol, steroids 11/11: Continue IV steroids, MAT protocol, discussed proning 11/12: Respiratory status still somewhat tenuous but improved from yesterday and not requiring proning. Continue current therapeutics. Patient does have significant bradycardia with heart rates predominantly in in the mid to upper 40 range with no evidence for atrial fibrillation with history of paroxysmal atrial fibrillation. We will decrease metoprolol to 50 mg daily considering further reduction pending heart rate as this degree of bradycardia is going to likely impair recovery. (2) Pneumonia due to COVID-19 virus Status: Acute Assessment & Plan: - Antibiotics (3) Acute CHF (congestive heart failure) Status: Acute Assessment & Plan: - strict I/Os, IV lasix 11/10: Echo with preserved EF Qualifiers: Qualified Codes: I50.21 - Acute systolic (congestive) heart failure (4) UTI (urinary tract infection) Status: Acute Assessment & Plan: 11/10: Awaiting sensitivities, started on Rocephin Qualifiers: Qualified Codes: N30.00 - Acute cystitis without hematuria (5) Atrial fibrillation Status: Chronic Assessment & Plan: - Continue OAC Qualifiers: Qualified Codes: I48.0 - Paroxysmal atrial fibrillation (6) Essential (primary) hypertension Status: Chronic Assessment & Plan: - Continue home meds Critical Care Critically Ill Patient MO QUACH MD Nov 12, 2021 11:28
[2021-11-12] MEDS: amLODIPine 10 MG (NORVASC) TAB PO SCH (20:15)
[2021-11-13] MEDS: guaiFENesin SYRUP 100 MG/5 ML 10 ML (ROBITUSSIN SF) PO SCH ×6 (01:32→20:29)
[2021-11-13 03:37] VITALS: BP 144/67
[2021-11-13 07:31] VITALS: BP 139/86
[2021-11-13] MEDS: meTOprolol SUCCINATE 100 MG (TOPROL XL) TAB PO SCH (07:38)
[2021-11-13] MEDS ORDERED: ONDANSETRON 4 MG/2 ML (SDV) Z0FRAN IVP PRN ×2 (08:45)
[2021-11-13] MEDS ORDERED: ONDANSETRON 4 MG/2 ML (SDV) Z0FRAN ONE (08:48)
[2021-11-13] MEDS: APIXABAN 5 MG (ELIQUIS) TABLET PO SCH ×2 (09:16→20:29)
[2021-11-13] MEDS: lisINopril 10 MG (PRINIVIL) TABLET PO SCH (09:16)
[2021-11-13] MEDS: cefTRIAXone 1 GM PRE-MIX 50 ML IV SCH (09:17)
[2021-11-13] MEDS: CLOPIDOGREL 75 MG (PLAVIX) TABLET PO SCH (09:18)
[2021-11-13 11:24] VITALS: BP 128/68
--- NOTE | 2021-11-13 11:29 | Progress Note - Hospitalist ---
Subjective HPI/CC On Admission Date Seen by Provider: Nov 13, 2021 Time Seen by Provider: 11:25 Subjective/Events-last exam Patient had episode of nausea with vomiting prior to eating or drinking anything this morning around 8. This is something new for her. She reports some epigastric discomfort currently mild she has had no vomiting since IV dose of Zofran has Some liquids down but does not feel hungry. When asked she thought she had had her gallbladder removed in the past but in our past records there is only note of appendectomy and nothing is noted about cholecystectomy. On the abdomen there appears to be 1 trocar incision periumbilically and really saw no evidence for scarring anywhere else on the abdomen Objective Exam Vital Signs Vital Signs Date Time Temp Pulse Resp B/P (MAP) Pulse Ox O2 Delivery O2 Flow Rate FiO2 11/13/21 08:00 97 Nasal Cannula 2.00 95 11/13/21 07:31 35.1 62 18 139/86 (103) Capillary Refill : Less Than 3 Seconds General Appearance: Chronically ill, Mild Distress Respiratory: No Accessory Muscle Use, No Respiratory Distress, Other (Mild expiratory wheezing with some scattered rhonchi unchanged from yesterday) Gastrointestinal: Normal Bowel Sounds, No Organomegaly, Other (Abdomen soft minimal right upper quadrant pain has more epigastric discomfort to palpation without rebound or guarding as well as left upper quadrant. No organomegaly noted abdomen soft.) Results/Procedures Lab Patient resulted labs reviewed. Assessment/Plan Assessment and Plan Assess & Plan/Chief Complaint (1) Acute hypoxemic respiratory failure due to COVID-19 Status: Acute Assessment & Plan: -NC, MAT protocol, steroids, will continue to monitor 11/10: Encouraged IS, MAT protocol, steroids 11/11: Continue IV steroids, MAT protocol, discussed proning 11/12: Respiratory status still somewhat tenuous but improved from yesterday and not requiring proning. Continue current therapeutics. Patient does have significant bradycardia with heart rates predominantly in in the mid to upper 40 range with no evidence for atrial fibrillation with history of paroxysmal atrial fibrillation. We will decrease metoprolol to 50 mg daily considering further reduction pending heart rate as this degree of bradycardia is going to likely impair recovery. 11/13: New onset epigastric and left upper quadrant discomfort to palpation with nausea and vomiting without evidence for hematemesis. Her been no changes in medication continue antiemetics consider abdominal ultrasound in the morning when sono available if symptoms persist. Questionable history of past cholecystectomy. Repeat CBC CMP and lipase in the morning. (2) Pneumonia due to COVID-19 virus Status: Acute Assessment & Plan: - Antibiotics (3) Acute CHF (congestive heart failure) Status: Acute Assessment & Plan: - strict I/Os, IV lasix 11/10: Echo with preserved EF Qualifiers: Qualified Codes: I50.21 - Acute systolic (congestive) heart failure (4) UTI (urinary tract infection) Status: Acute Assessment & Plan: 11/10: Awaiting sensitivities, started on Rocephin Qualifiers: Qualified Codes: N30.00 - Acute cystitis without hematuria (5) Atrial fibrillation Status: Chronic Assessment & Plan: - Continue OAC Qualifiers: Qualified Codes: I48.0 - Paroxysmal atrial fibrillation (6) Essential (primary) hypertension Status: Chronic Assessment & Plan: - Continue home meds Critical Care Critically Ill Patient MO QUACH MD Nov 13, 2021 11:29
[2021-11-13 16:00] VITALS: BP 125/57
[2021-11-13 19:19] VITALS: BP 121/59
[2021-11-13] MEDS: amLODIPine 10 MG (NORVASC) TAB PO SCH (20:29)
[2021-11-13 23:54] VITALS: BP 137/68
[2021-11-14] MEDS: guaiFENesin SYRUP 100 MG/5 ML 10 ML (ROBITUSSIN SF) PO SCH ×7 (01:00→23:36)
[2021-11-14 04:45] VITALS: BP 128/63
[2021-11-14 05:30] LABS: BASOPHILS % (AUTO) 0 % (0-10); EOSINOPHILS # (AUTO) 0.1 10^3/uL (0.0-0.3); EOSINOPHILS % (AUTO) 1 % (0-10); HEMATOCRIT 44 % (35-52); HEMOGLOBIN 14.4 g/dL (11.5-16.0); LYMPHOCYTES # (AUTO) 1.7 10^3/uL (1.0-4.0); LYMPHOCYTES % (AUTO) 19 % (12-44); MEAN CORPUSCULAR HEMOGLOBIN 29 pg (25-34); MEAN CORPUSCULAR HGB CONC 33 g/dL (32-36); MEAN CORPUSCULAR VOLUME 88 fL (80-99); MEAN PLATELET VOLUME 11.1 fL (9.0-12.2); MONOCYTES # (AUTO) 0.5 10^3/uL (0.0-1.0); MONOCYTES % (AUTO) 5 % (0-12); NEUTROPHILS # (AUTO) 6.1 10^3/uL (1.8-7.8); NEUTROPHILS % (AUTO) 70 % (42-75); PLATELET COUNT 227 10^3/uL (130-400); WHITE BLOOD COUNT 8.7 10^3/uL (4.3-11.0)
[2021-11-14 05:43] LABS: ALBUMIN 3.2 GM/DL (3.2-4.5); POTASSIUM 4.2 MMOL/L (3.6-5.0)
[2021-11-14 05:45] LABS: CALCIUM 8.8 MG/DL (8.5-10.1)
[2021-11-14 05:46] LABS: TOTAL PROTEIN 5.4 GM/DL (6.4-8.2)
[2021-11-14 05:47] LABS: BILIRUBIN,TOTAL 0.7 MG/DL (0.1-1.0)
[2021-11-14 05:49] LABS: CREATININE SERUM 0.77 MG/DL (0.60-1.30)
[2021-11-14 08:06] VITALS: BP 122/60
[2021-11-14] MEDS: APIXABAN 5 MG (ELIQUIS) TABLET PO SCH ×2 (09:58→21:30)
[2021-11-14] MEDS: lisINopril 10 MG (PRINIVIL) TABLET PO SCH (09:58)
[2021-11-14] MEDS: cefTRIAXone 1 GM PRE-MIX 50 ML IV SCH (09:58)
[2021-11-14] MEDS: CLOPIDOGREL 75 MG (PLAVIX) TABLET PO SCH (09:58)
[2021-11-14] MEDS: meTOprolol SUCCINATE 100 MG (TOPROL XL) TAB PO SCH (09:59)
[2021-11-14 11:23] VITALS: BP 127/58
--- NOTE | 2021-11-14 12:47 | Progress Note - Hospitalist ---
Subjective HPI/CC On Admission Date Seen by Provider: Nov 14, 2021 Time Seen by Provider: 12:15 Subjective/Events-last exam Patient reports no abdominal pain and no further nausea tolerating solids. Generalized weakness reportedly about the same no shortness of breath at rest nonproductive cough unchanged Objective Exam Vital Signs Vital Signs Date Time Temp Pulse Resp B/P (MAP) Pulse Ox O2 Delivery O2 Flow Rate FiO2 11/14/21 12:41 46 11/14/21 11:23 36.6 20 127/58 (81) 99 Nasal Cannula 2.00 11/13/21 08:00 95 Capillary Refill : Less Than 3 Seconds General Appearance: No Apparent Distress, Chronically ill, Obese Respiratory: No Accessory Muscle Use, No Respiratory Distress, Other Cardiovascular: No Murmur (Scattered rhonchi with mild expiratory wheezing unchanged), Irregularly Irregular Gastrointestinal: Normal Bowel Sounds, No Organomegaly, No Pulsatile Mass, Non Tender, Soft Results/Procedures Lab Laboratory Tests 11/14/21 05:17 Patient resulted labs reviewed. Assessment/Plan Assessment and Plan Assess & Plan/Chief Complaint (1) Acute hypoxemic respiratory failure due to COVID-19 Status: Acute Assessment & Plan: -NC, MAT protocol, steroids, will continue to monitor 11/10: Encouraged IS, MAT protocol, steroids 11/11: Continue IV steroids, MAT protocol, discussed proning 11/12: Respiratory status still somewhat tenuous but improved from yesterday and not requiring proning. Continue current therapeutics. Patient does have significant bradycardia with heart rates predominantly in in the mid to upper 40 range with no evidence for atrial fibrillation with history of paroxysmal atrial fibrillation. We will decrease metoprolol to 50 mg daily considering further reduction pending heart rate as this degree of bradycardia is going to likely impair recovery. 11/13: New onset epigastric and left upper quadrant discomfort to palpation with nausea and vomiting without evidence for hematemesis. Her been no changes in medication continue antiemetics consider abdominal ultrasound in the morning when sono available if symptoms persist. Questionable history of past cholecystectomy. Repeat CBC CMP and lipase in the morning.11/14: Resolution of nausea patient tolerating solids CBC lipase and CMP unremarkable except for increase in BUN. Hemoglobin is higher there is no evidence for GI bleed as she still exhibits sinus bradycardia and middle to low normal blood pressures we will hold metoprolol again and will discontinue lisinopril considering normal LV systolic function on echo done at this hospital stay estimated ejection fraction 55 to 60%. (2) Pneumonia due to COVID-19 virus Status: Acute Assessment & Plan: - Antibiotics (3) Acute CHF (congestive heart failure) Status: Acute Assessment & Plan: - strict I/Os, IV lasix 11/10: Echo with preserved EF Qualifiers: Qualified Codes: I50.21 - Acute systolic (congestive) heart failure (4) UTI (urinary tract infection) Status: Acute Assessment & Plan: 11/10: Awaiting sensitivities, started on Rocephin Qualifiers: Qualified Codes: N30.00 - Acute cystitis without hematuria (5) Atrial fibrillation Status: Chronic Assessment & Plan: - Continue OAC Qualifiers: Qualified Codes: I48.0 - Paroxysmal atrial fibrillation (6) Essential (primary) hypertension Status: Chronic Assessment & Plan: - Continue home meds Critical Care Critically Ill Patient MO QUACH MD Nov 14, 2021 12:47
[2021-11-14 16:00] VITALS: BP 121/66
[2021-11-14 20:00] VITALS: BP 131/82
[2021-11-14] MEDS: amLODIPine 10 MG (NORVASC) TAB PO SCH (21:30)
[2021-11-14 23:34] VITALS: BP 127/67
[2021-11-15 03:36] VITALS: BP 134/79
[2021-11-15] MEDS: guaiFENesin SYRUP 100 MG/5 ML 10 ML (ROBITUSSIN SF) PO SCH ×5 (04:54→20:42)
[2021-11-15 07:00] LABS: BASOPHILS # (AUTO) 0.1 10^3/uL (0.0-0.1); BASOPHILS % (AUTO) 1 % (0-10); EOSINOPHILS # (AUTO) 0.1 10^3/uL (0.0-0.3); EOSINOPHILS % (AUTO) 1 % (0-10); HEMATOCRIT 45 % (35-52); HEMOGLOBIN 14.9 g/dL (11.5-16.0); LYMPHOCYTES # (AUTO) 2.3 10^3/uL (1.0-4.0); LYMPHOCYTES % (AUTO) 22 % (12-44); MEAN CORPUSCULAR HEMOGLOBIN 29 pg (25-34); MEAN CORPUSCULAR HGB CONC 33 g/dL (32-36); MEAN CORPUSCULAR VOLUME 88 fL (80-99); MEAN PLATELET VOLUME 11.1 fL (9.0-12.2); MONOCYTES # (AUTO) 0.5 10^3/uL (0.0-1.0); MONOCYTES % (AUTO) 5 % (0-12); NEUTROPHILS # (AUTO) 6.6 10^3/uL (1.8-7.8); NEUTROPHILS % (AUTO) 66 % (42-75); PLATELET COUNT 245 10^3/uL (130-400); WHITE BLOOD COUNT 10.1 10^3/uL (4.3-11.0)
[2021-11-15 07:20] LABS: ALBUMIN 3.2 GM/DL (3.2-4.5); BILIRUBIN,TOTAL 0.5 MG/DL (0.1-1.0); CALCIUM 9.1 MG/DL (8.5-10.1); CREATININE SERUM 0.74 MG/DL (0.60-1.30); POTASSIUM 4.3 MMOL/L (3.6-5.0); TOTAL PROTEIN 5.7 GM/DL (6.4-8.2)
[2021-11-15 08:13] VITALS: BP 116/72
[2021-11-15] MEDS: CLOPIDOGREL 75 MG (PLAVIX) TABLET PO SCH (08:26)
[2021-11-15] MEDS: APIXABAN 5 MG (ELIQUIS) TABLET PO SCH ×2 (08:26→20:42)
--- NOTE | 2021-11-15 09:50 | Progress Note - Hospitalist ---
Subjective HPI/CC On Admission Date Seen by Provider: Nov 15, 2021 Time Seen by Provider: 10:00 Subjective/Events-last exam Pt is doing okay Will restart the Rocephin that was completed today because she still sounds worse Remains on 2L of oxygen Wheezing a lot but otherwise doing okay Review of Systems General: Fatigue, Malaise Pulmonary: Dyspnea, Cough Objective Exam Vital Signs Vital Signs Date Time Temp Pulse Resp B/P (MAP) Pulse Ox O2 Delivery O2 Flow Rate FiO2 11/16/21 00:41 36.6 58 20 114/56 (75) 95 Room Air 11/15/21 08:13 2.00 11/13/21 08:00 95 Capillary Refill : Less Than 3 Seconds General Appearance: No Apparent Distress, WD/WN, Chronically ill Respiratory: No Accessory Muscle Use, No Respiratory Distress, Crackles, Decreased Breath Sounds, Wheezing Cardiovascular: Regular Rate, Rhythm Neurologic/Psychiatric: Alert, Oriented x3, No Motor/Sensory Deficits, Normal Mood/Affect Results/Procedures Lab Laboratory Tests 11/15/21 06:45 Patient resulted labs reviewed. Assessment/Plan Assessment and Plan Assess & Plan/Chief Complaint Assessment: COVID-19 PNA AECOPD UTI AF Plan: Meds per protocol Critical Care Critically Ill Patient MAYNORMIGEL GONZALES Nov 15, 2021 09:49
[2021-11-15] MEDS: cefTRIAXone 1 GM PRE-MIX 50 ML IV SCH (10:20)
[2021-11-15 16:45] VITALS: BP 147/83
[2021-11-15] MEDS: amLODIPine 10 MG (NORVASC) TAB PO SCH (20:42)
[2021-11-16] MEDS: guaiFENesin SYRUP 100 MG/5 ML 10 ML (ROBITUSSIN SF) PO SCH ×6 (00:39→19:29)
[2021-11-16 00:41] VITALS: BP 114/56
[2021-11-16 06:34] LABS: BASOPHILS % (AUTO) 0 % (0-10); EOSINOPHILS # (AUTO) 0.1 10^3/uL (0.0-0.3); EOSINOPHILS % (AUTO) 0 % (0-10); HEMATOCRIT 46 % (35-52); HEMOGLOBIN 15.3 g/dL (11.5-16.0); LYMPHOCYTES # (AUTO) 2.5 10^3/uL (1.0-4.0); LYMPHOCYTES % (AUTO) 22 % (12-44); MEAN CORPUSCULAR HEMOGLOBIN 29 pg (25-34); MEAN CORPUSCULAR HGB CONC 33 g/dL (32-36); MEAN CORPUSCULAR VOLUME 87 fL (80-99); MEAN PLATELET VOLUME 11.2 fL (9.0-12.2); MONOCYTES # (AUTO) 0.7 10^3/uL (0.0-1.0); MONOCYTES % (AUTO) 6 % (0-12); NEUTROPHILS # (AUTO) 7.6 10^3/uL (1.8-7.8); NEUTROPHILS % (AUTO) 66 % (42-75); PLATELET COUNT 294 10^3/uL (130-400); WHITE BLOOD COUNT 11.6 10^3/uL (4.3-11.0)
--- NOTE | 2021-11-16 07:00 | Progress Note - Hospitalist ---
Subjective HPI/CC On Admission Date Seen by Provider: Nov 16, 2021 Time Seen by Provider: 11:00 Subjective/Events-last exam Pt is doing a lot better PT and OT will be ordered Benadryl will be given for itchiness Coarse breath sounds remain Possible discharge Review of Systems General: Fatigue, Malaise Pulmonary: Cough Objective Exam Vital Signs Vital Signs Date Time Temp Pulse Resp B/P (MAP) Pulse Ox O2 Delivery O2 Flow Rate FiO2 11/17/21 00:06 35.8 66 18 122/66 (84) 96 Room Air 11/15/21 08:13 2.00 11/13/21 08:00 95 Capillary Refill : Less Than 3 Seconds General Appearance: No Apparent Distress, WD/WN, Chronically ill Respiratory: No Accessory Muscle Use, No Respiratory Distress, Crackles, Decreased Breath Sounds Cardiovascular: Regular Rate, Rhythm Neurologic/Psychiatric: Alert, Oriented x3, No Motor/Sensory Deficits, Normal Mood/Affect Results/Procedures Lab Laboratory Tests 11/16/21 05:50 Patient resulted labs reviewed. Assessment/Plan Assessment and Plan Assess & Plan/Chief Complaint Assessment: COVID-19 PNA AECOPD UTI AF Plan: Meds per protocol 11/16/21: DC tomorrow PT OT O2 evaluation Critical Care Critically Ill Patient MIGEL MCGUIRE DO Nov 16, 2021 07:00
[2021-11-16 07:04] LABS: ALBUMIN 3.2 GM/DL (3.2-4.5); BILIRUBIN,TOTAL 0.5 MG/DL (0.1-1.0); CALCIUM 9.2 MG/DL (8.5-10.1); CREATININE SERUM 0.78 MG/DL (0.60-1.30); TOTAL PROTEIN 5.6 GM/DL (6.4-8.2)
--- NOTE | 2021-11-16 07:53 | Diagnostic Imaging Report ---
INDICATION: Covid positive with pneumonia. Cough. Comparison with 11/08/2021. FINDINGS: Cardiomegaly remains present. There continues to be some infiltrate in the left lung base. Right lung is clear. No pneumothorax. No pulmonary edema. IMPRESSION: 1. Cardiomegaly with persistent left basilar infiltrate. Dictated by: Dictated on workstation # [id number]
[2021-11-16 08:11] VITALS: BP 124/63
[2021-11-16] MEDS: APIXABAN 5 MG (ELIQUIS) TABLET PO SCH ×2 (09:01→21:28)
[2021-11-16] MEDS: CLOPIDOGREL 75 MG (PLAVIX) TABLET PO SCH (09:01)
[2021-11-16] MEDS: cefTRIAXone 1 GM/50 ML (PRE-MIX) IV SCH (09:01)
[2021-11-16] MEDS: diphenhydrAMINE 25 MG TAB (BENADRYL) PO PRN ×2 (13:17→21:31)
--- NOTE | 2021-11-16 14:23 | Occupational Therapy Eval ---
OT Evaluation-General/PLF Medical Diagnosis Admission Date Nov 08, 2021 at 15:15 Medical Diagnosis: pneumonia due to COVID 19 Onset Date: Nov 09, 2021 Therapy Diagnosis Therapy Diagnosis: Impaired endurance, strength Height/Weight Height (Feet): 5 Height (Inches): 5.00 Weight (Pounds): 237 Weight (Ounces): 4.0 Precautions Precautions/Isolations: Contact Isolation, Droplet Isolation, Fall Prevention Referral Physician: Derick Referral Reason: Evaluation/Treatment Medical History Pertinent Medical History: Atrial Fib, CAD, COPD, CVA, GERD, HTN Current History + for COVID 19. Pt reports living with and daughter in single story home. She was indep with adls and daughter completes all iadls and provides transportation. She was not using any AD DES[employer]TERN[employer]. At baseline, pt wears 2-3L at night and is on RA during the day Social History Home: Single Level Current Living Status: Spouse ADL-Prior Level of Function SCALE: Activities may be completed with or without assistive devices. 3-Rpadwxneuy-zcmwvqb completes the activity by him/herself with no assistance from a helper. 5-Set-up or Clean-up Assistance-helper sets up or cleans up; patient completes activity. [place] assists only prior to or following the activity. 4-Supervision or Touching Assistance-helper provides verbal cues and/or touching/steadying and/or contact guard assistance as patient completes activity. Assistance may be provided throughout the activity or intermittently. 3-Partial/Moderate Assistance-helper does LESS THAN HALF the effort. [place] lifts, holds or supports trunk or limbs, but provides less than half the effort. 2-Substantial/Maximal Assistance-helper does MORE THAN HALF the effort. [place] lifts or holds trunk or limbs and provides more than half the effort. 3-Ufydjelqh-eugrsp does ALL the effort. Patient does none of the effort to com plete the activity. Or, the assistance of 2 or more helpers is required for the patient to complete the activity. If activity was not attempted, code reason: 7-Patient Refused. 9-Not Applicable-not attempted and the patient did not perform the activity before the current illness, exacerbation or injury. 10-Not Attempted due to Environmental Limitations-(lack of equipment, weather restraints, etc.). 88-Not Attempted due to Medical Conditions or Safety Concerns. Self Care: Independent Functional Cognition: Independent DME/Equipment: Bath Chair, Grab Bars, Shower Drive Self: No OT Current Status Subjective Pt reports fatigue but agreeable to eval. Appearance Pt returned to sitting in recliner, all needs within reach. Mental Status/Objective Patient Orientation: Person, Place, Situation Current Upper Extremity ROM WNL Upper Extremity Strength 3/5 throughout ADL-Treatment Eating (QC): 4 Oral Hygiene (QC): 4 Lower Body Dressing (QC): 4 On/Off Footwear (QC): 4 Pt sitting in recliner at therapy arrival. Able to don/doff bilateral socks with SBA and significant amount of effort due to fatigue. A rest break was needed before continuing with activity. Sit<>stand: SBA. Pt stood for ~1 minute. No unsteadiness observed but pt verbalizes feeling unsteady. She declines ambulating towards commode or toilet. Pt likely would require close SBA-CGA with standing functional task such as clothing management due to fatigue. Education OT Patient Education: Correct positioning, Energy conservation, Modified ADL techniques, Progress toward Goal/Update tx plan, Purpose of tx/functional activities, Safety issues Teaching Recipient: Patient Teaching Methods: Discussion Response to Teaching: Verbalize Understanding, Reinforcement Needed OT Usp Goals Usp Goals Time Frame: Nov 23, 2021 Oral Hygiene (QC): 5 Toileting Hygiene (QC): 5 Upper Body Dressing (QC): 5 Lower Body Dressing (QC): 5 On/Off Footwear (QC): 5 1=Demonstrate adherence to instructed precautions during ADL tasks. 2=Patient will verbalize/demonstrate understanding of assistive devices/modifications for ADL. 3=Patient will improve strength/tolerance for activity to enable patient to perform ADL's. OT Education/Plan Problem List/Assessment Assessment: Decreased Activ Tolerance, Decreased UE Strength, Impaired Funct Balance, Impaired Self-Care Skills Discharge Recommendations Plan/Recommendations: Continue POC Treatment Plan/Plan of Care Treatment,Training & Education: Yes Patient would benefit from OT for education, treatment and training to promote independence in ADL's, mobility, safety and/or upper extremity function for ADL's. Plan of Care: ADL Retraining, Functional Mobility, UE Funct Exercise/Act Treatment Duration: Nov 23, 2021 Frequency: 3 times per week Estimated Hrs Per Day: .25 hour per day Agreement: Yes 3-5x/week Time/GCodes Start Time: 13:50 Stop Time: 14:00 Total Time Billed (hr/min): 10 Billed Treatment Time 1 visit Jemima Villalta OT Nov 16, 2021 14:23
--- NOTE | 2021-11-16 14:46 | Physical Therapy Evaluation ---
PT Evaluation-General Medical Diagnosis Admission Date Nov 08, 2021 at 15:15 Medical Diagnosis: pneumonia due to COVID 19 Onset Date: Nov 09, 2021 Therapy Diagnosis Therapy Diagnosis: Gait deficit, strength deficit Height/Weight Height (Feet): 5 Height (Inches): 5.00 Weight (Pounds): 237 Weight (Ounces): 4.0 Precautions Precautions/Isolations: Contact Isolation, Droplet Isolation, Fall Prevention Referral Physician: Derick Reason for Referral: Evaluation/Treatment Medical History Pertinent Medical History: Atrial Fib, CAD, COPD, CVA, GERD, HTN Social History Home: Single Level Current Living Status: Spouse Entry Into Home: Stairs With Railing PT Steps Into Home: 5 Prior Prior Level of Function SCALE: Activities may be completed with or without assistive devices. 2-Lnekhhpzzr-zkzumoz completes the activity by him/herself with no assistance from a helper. 5-Set-up or Clean-up Assistance-helper sets up or cleans up; patient completes activity. [place] assists only prior to or following the activity. 4-Supervision or Touching Assistance-helper provides verbal cues and/or touching/steadying and/or contact guard assistance as patient completes activity. Assistance may be provided throughout the activity or intermittently. 3-Partial/Moderate Assistance-helper does LESS THAN HALF the effort. [place] lifts, holds or supports trunk or limbs, but provides less than half the effort. 2-Substantial/Maximal Assistance-helper does MORE THAN HALF the effort. [place] lifts or holds trunk or limbs and provides more than half the effort. 8-Eyubrvywq-kcwzzr does ALL the effort. Patient does none of the effort to complete the activity. Or, the assistance of 2 or more helpers is required for the patient to complete the activity. If activity was not attempted, code reason: 7-Patient Refused. 9-Not Applicable-not attempted and the patient did not perform the activity before the current illness, exacerbation or injury. 10-Not Attempted due to Environmental Limitations-(lack of equipment, weather restraints, etc.). 88-Not Attempted due to Medical Conditions or Safety Concerns. Bed Mobility: 6 Transfers (B,C,W/C): 6 Gait: 6 Stairs: 6 Indoor Mobility (Ambulation): Independent Stairs: Independent Patient reports she has a wheelchair at home but does not use it. Reports she does not drive nor cook, but not for any specific reason. PT Evaluation-Current Subjective Patient sitting in chair upon PT arrival, agreeable to PT evaluation, reports no pain currently. Objective Patient Orientation: Person, Place, Time, Situation ROM/Strength ROM Lower Extremities WFLs bilaterally all planes Strength Lower Extremities 4-/5 bilaterally all planes Sensory Vision: Functional Hearing: Functional Sensation Right Lower Extremit: Intact Sensation Left Lower Extremity: Intact Transfers Sit to Stand (QC): 4 Chair/Cwg-bj-Chlso Xfer(QC): 4 Gait Does the Patient Walk?: Yes Mode of Locomotion: Walk Anticipated Mode of Locomotion: Walk Walk 10 feet (QC): 3 Distance: 40 Comments/Gait Description Patient did not use a FWW for PT evaluation however may benefit from use of FWW due to fatigue and LE strength deficit. Balance Sitting Static: Normal Sitting Dynamic: Normal Standing Static: Good Standing Dynamic: Good Assessment/Needs Patient tolerated treatment fair, but fatigued quickly. Patient performs all observed transfers with min A and verbal cues. Patient ambulates 40 feet with min A and verbal cues, encouraged patient to ambulate more, however she reports she is too fatigued and wants to return to the chair. Patient in chair post treatment with all needs met, nursing notified, call light in hand. Rehab Potential: Good PT Penitentiary Goals Penitentiary Goals PT Penitentiary Goals Time Frame: Nov 25, 2021 Roll Left & Right (QC): 6 Sit to Lying (QC): 6 Lying-Sitting on Side/Bed(QC): 6 Sit to Stand (QC): 6 Chair/Dhe-pb-Tvldz Xfer(QC): 6 Toilet Transfer (QC): 6 Does the Patient Walk: Yes Walk 10 feet (QC): 5 Walk 50ft with 2 Turns (QC): 5 Walk 150 ft (QC): 5 1 Step (curb) (QC): 5 4 Steps (QC): 5 12 Steps (QC): 5 PT Plan Problem List Problem List: Activity Tolerance, Functional Strength, Safety, Balance, Gait, Transfer, Bed Mobility, ROM Treatment/Plan Treatment Plan: Continue Plan of Care Treatment Plan: Bed Mobility, Education, Functional Activity Taiwo, Functional Strength, Gait, Safety, Therapeutic Exercise, Transfers Treatment Duration: Dec 23, 2021 Frequency: 6 times per week Estimated Hrs Per Day: .25 hour per day Patient and/or Family Agrees t: Yes Safety Risks/Education Patient Education: Gait Training, Transfer Techniques, Safety Issues Teaching Recipient: Patient Teaching Methods: Demonstration, Discussion Response to Teaching: Verbalize Understanding, Return Demonstration Time/GCodes Time In: 1425 Time Out: 1440 Total Billed Treatment Time: 15 Total Billed Treatment Visit, YIFAN Benavidez PT Nov 16, 2021 14:46
[2021-11-16 16:20] VITALS: BP 128/71
[2021-11-16] MEDS: amLODIPine 10 MG (NORVASC) TAB PO SCH (21:28)
[2021-11-17 00:06] VITALS: BP 122/66
[2021-11-17] MEDS: guaiFENesin SYRUP 100 MG/5 ML 10 ML (ROBITUSSIN SF) PO SCH ×4 (01:56→14:37)
[2021-11-17 07:47] VITALS: BP 114/75
[2021-11-17] MEDS: APIXABAN 5 MG (ELIQUIS) TABLET PO SCH (07:51)
[2021-11-17] MEDS: CLOPIDOGREL 75 MG (PLAVIX) TABLET PO SCH (07:51)
[2021-11-17] MEDS: cefTRIAXone 1 GM/50 ML (PRE-MIX) IV SCH (07:51)
[2021-11-17] MEDS: diphenhydrAMINE 25 MG TAB (BENADRYL) PO PRN (07:58)
--- NOTE | 2021-11-17 11:11 | Occupational Ther Daily Note ---
OT Current Status-Daily Note Subjective Pt alert, lying in bed. Pt agrees to therapy. No c/o pain. Pt declines to complete any task OOB. Mental Status/Objective Patient Orientation: Person, Place, Time, Situation Attachments: IV ADL-Treatment After supplies gathered, pt able to complete oral care by self. Pt declined any further ADLs. Therapy Code Descriptions/Definitions Functional [place] Measure: 0=Not Assessed/NA 4=Minimal Assistance 1=Total Assistance 5=Supervision or Setup 2=Maximal Assistance 6=Modified [place] 3=Moderate Assistance 7=Complete IndependenceSCALE: Activities may be completed with or without assistive devices. 3-Vuprahvakd-ygdjdes completes the activity by him/herself with no assistance from a helper. 5-Set-up or Clean-up Assistance-helper sets up or cleans up; patient completes activity. [place] assists only prior to or following the activity. 4-Supervision or Touching Assistance-helper provides verbal cues and/or touching/steadying and/or contact guard assistance as patient completes activity. Assistance may be provided throughout the activity or intermittently. 3-Partial/Moderate Assistance-helper does LESS THAN HALF the effort. [place] lifts, holds or supports trunk or limbs, but provides less than half the effort. 2-Substantial/Maximal Assistance-helper does MORE THAN HALF the effort. [place] lifts or holds trunk or limbs and provides more than half the effort. 7-Rzqxgseae-yezone does ALL the effort. Patient does none of the effort to complete the activity. Or, the assistance of 2 or more helpers is required for the patient to complete the activity. If activity was not attempted, code reason: 7-Patient Refused. 9-Not Applicable-not attempted and the patient did not perform the activity before the current illness, exacerbation or injury. 10-Not Attempted due to Environmental Limitations-(lack of equipment, weather restraints, etc.). 88-Not Attempted due to Medical Conditions or Safety Concerns. Oral Hygiene (QC): 5 Other Treatment Pt completed B UE exercises to increase strength and activity tolerance for daily functional tasks. Front punches, modified shldr abd/add, tricep isometric exercises completed with skilled instruction for correct technique, 2 sets 10 reps. After session, pt lying in bed with call light/phone in reach. All needs met in room. OT Marketing Services Rep Goals Marketing Services Rep Goals Time Frame: Nov 23, 2021 Oral Hygiene (QC): 5 Toileting Hygiene (QC): 5 Upper Body Dressing (QC): 5 Lower Body Dressing (QC): 5 On/Off Footwear (QC): 5 1=Demonstrate adherence to instructed precautions during ADL tasks. 2=Patient will verbalize/demonstrate understanding of assistive devices/modifications for ADL. 3=Patient will improve strength/tolerance for activity to enable patient to perform ADL's. OT Education/Plan Problem List/Assessment Assessment: Decreased Activ Tolerance, Decreased UE Strength, Impaired Self- Care Skills Discharge Recommendations Plan/Recommendations: Continue POC Treatment Plan/Plan of Care Patient would benefit from OT for education, treatment and training to promote independence in ADL's, mobility, safety and/or upper extremity function for ADL's. Plan of Care: ADL Retraining, Functional Mobility, UE Funct Exercise/Act Treatment Duration: Nov 23, 2021 Frequency: 3 times per week Estimated Hrs Per Day: .25 hour per day Agreement: Yes Rehab Potential: Good Time/GCodes Start Time: 10:20 Stop Time: 10:39 Total Time Billed (hr/min): 19 Billed Treatment Time 1 visit-EX 1 (19 min) ARNALDO SPENCE Nov 17, 2021 11:11
--- NOTE | 2021-11-17 11:35 | Physical Therapy Daily Note ---
PT Daily Note-Current Subjective Patient lying supine in bed upon PT arrival, agreeable to treatment. Reports no pain currently. Mental Status Patient Orientation: Person Transfers SCALE: Activities may be completed with or without assistive devices. 9-Hmwpunkxyh-vqgtumb completes the activity by him/herself with no assistance from a helper. 5-Set-up or Clean-up Assistance-helper sets up or cleans up; patient completes activity. [place] assists only prior to or following the activity. 4-Supervision or Touching Assistance-helper provides verbal cues and/or touching/steadying and/or contact guard assistance as patient completes activity. Assistance may be provided throughout the activity or intermittently. 3-Partial/Moderate Assistance-helper does LESS THAN HALF the effort. [place] lifts, holds or supports trunk or limbs, but provides less than half the effort. 2-Substantial/Maximal Assistance-helper does MORE THAN HALF the effort. [place] lifts or holds trunk or limbs and provides more than half the effort. 2-Ftfelpqds-oldobq does ALL the effort. Patient does none of the effort to complete the activity. Or, the assistance of 2 or more helpers is required for the patient to complete the activity. If activity was not attempted, code reason: 7-Patient Refused. 9-Not Applicable-not attempted and the patient did not perform the activity before the current illness, exacerbation or injury. 10-Not Attempted due to Environmental Limitations-(lack of equipment, weather restraints, etc.). 88-Not Attempted due to Medical Conditions or Safety Concerns. Roll Left & Right (QC): 4 Sit to Lying (QC): 4 Lying to Sitting/Side of Bed(Q: 4 Sit to Stand (QC): 4 Chair/Wmc-zw-Ninsq Xfer(QC): 4 Gait Training Does the Patient Walk?: Yes Distance: 80 Walk 10 feet (QC): 4 Walk 50 ft with 2 Turns(QC): 4 Gait Persons Needed: 1 Exercises Seated Therapy Exercises: Ankle pumps, Long arc quads, Hip flexion, Hamstring Curls, Hip abd/add Seated Reps: 20 Assessment Current Status: Fair Progress Patient tolerated treatment well. She performs all observed bed mobility and transfers with SBA and verbal cues. Patient ambulates 80 feet with SBA and verbal cues for posture, safety, progression. Patient sitting in chair post gait, performs LE therapeutic exercise as listed above. Patient in chair post treatment with all needs met, nursing notified, call light in reach. PT Database Analyst Goals Retirement Goals PT Retirement Goals Time Frame: Nov 25, 2021 Roll Left & Right (QC): 6 Sit to Lying (QC): 6 Lying-Sitting on Side/Bed(QC): 6 Sit to Stand (QC): 6 Chair/Ija-cc-Lokxp Xfer(QC): 6 Toilet Transfer (QC): 6 Does the Patient Walk: Yes Walk 10 feet (QC): 5 Walk 50ft with 2 Turns (QC): 5 Walk 150 ft (QC): 5 1 Step (curb) (QC): 5 4 Steps (QC): 5 12 Steps (QC): 5 PT Plan Treatment/Plan Treatment Plan: Continue Plan of Care Treatment Plan: Bed Mobility, Education, Functional Activity Taiwo, Functional Strength, Gait, Safety, Therapeutic Exercise, Transfers Treatment Duration: Dec 23, 2021 Frequency: 6 times per week Estimated Hrs Per Day: .25 hour per day Patient and/or Family Agrees t: Yes Safety Risks/Education Patient Education: Gait Training, Transfer Techniques Teaching Recipient: Patient Teaching Methods: Demonstration, Discussion Response to Teaching: Verbalize Understanding, Return Demonstration Time/GCodes Time In: 1100 Time Out: 1125 Total Billed Treatment Time: 25 Total Billed Treatment Visit, [place], YIFAN Ortega PT Nov 17, 2021 11:35
[2021-11-17] MEDS ORDERED: DEXA6TAB6 PO (12:29)
--- NOTE | 2021-11-17 12:30 | Discharge Summary ---
Discharge Summary Hospital Course Was the Problem List Reviewed?: Yes Problems/Dx: (1) Acute hypoxemic respiratory failure due to COVID-19 Status: Acute (2) Pneumonia due to COVID-19 virus Status: Acute (3) Acute CHF (congestive heart failure) Status: Acute Qualifiers: Qualified Codes: I50.21 - Acute systolic (congestive) heart failure (4) Atrial fibrillation Status: Chronic Qualifiers: Qualified Codes: I48.0 - Paroxysmal atrial fibrillation (5) Essential (primary) hypertension Status: Chronic Hospital Course Date of Admission: Nov 08, 2021 at 15:15 Admission Diagnosis : Family Physician/Provider: Rafita Love MD Date of Discharge: 11/17/21 Discharge Diagnosis: COVID-19 pneumonia, acute hypoxic respiratory failure, acute exacerbation of COPD, atrial fibrillation Hospital Course: Patient had a lengthy hospital course after he was admitted for acute hypoxic respiratory failure from COVID-19 pneumonia with bacterial pneumonia. Patient did respond to aggressive oxygen supplementation. Patient completed IV antibiotics while hospitalized. Patient was deemed stable for discharge and did not require home oxygen. Labs and Pending Lab Test: Microbiology 11/08/21 Urine Culture - Final, Complete Escherichia coli 11/08/21 Blood Culture - Final, Complete No growth Home Meds Active Reported Metoprolol Succinate 100 Mg Tab.er.24h 100 Mg PO DAILY Eliquis (Apixaban) 5 Mg Tablet 5 Mg PO BID Clopidogrel (Clopidogrel Bisulfate) 75 Mg Tablet 75 Mg PO DAILY Lisinopril 2.5 Mg Tablet 2.5 Mg PO DAILY Furosemide 20 Mg Tablet 20 Mg PO DAILY Azithromycin 250 Mg Tablet 250 Mg PO DAILY FILLED 11-07-2021 #6/5 DAY SUPPLY Prednisone 10 Mg Tab Mg PO UD TAPER DOSE 6 TABS ON DAY 1 AND DECREASE BY 1 TAB DAILY UNTIL ALL TAKEN FILLED 11-07-2021 #21/6 DAY SUPPLY Multiple Vitamins (Multivitamin) 1 Each Tablet 1 Each PO DAILY Breo Ellipta 200-25 Mcg INH (Fluticasone/Vilanterol) 1 Each Blst.w.dev 1 Puff PO DAILY Isosorbide Mononitrate ER (Isosorbide Mononitrate) 60 Mg Tab 120 Mg PO HS TAKES 2 (60MG) TABS Atorvastatin Calcium 40 Mg Tablet 40 Mg PO HS Cetirizine HCl 10 Mg Tablet 10 Mg PO DAILY Amlodipine Besylate 10 Mg Tablet 10 Mg PO HS Fluticasone Propionate 16 Gm [place].susp 1-2 Sprays NSEACH DAILY PRN Montelukast Sodium 10 Mg Tablet 10 Mg PO HS Assessment/Pt Instructions PCP in 1 week Discharge Planning: <30 minutes discharge planning Discharge Instructions Activity as Tolerated: Yes Discharge Physical Examination Vital Signs Vital Signs Date Time Temp Pulse Resp B/P (MAP) Pulse Ox O2 Delivery O2 Flow Rate FiO2 11/17/21 08:46 Room Air 11/17/21 07:47 36.4 50 18 114/75 (88) 97 11/15/21 08:13 2.00 11/13/21 08:00 95 General Appearance: No Apparent Distress, WD/WN, Chronically ill Respiratory: No Accessory Muscle Use, No Respiratory Distress, Crackles, Wheezing Cardiovascular: Regular Rate, Rhythm Allergies: Coded Allergies: Penicillins (Verified Allergy, Mild, RASH/HIVES, 03/04/20) Sulfa (Sulfonamide Antibiotics) (Verified Allergy, Mild, HIVES/RASH, 03/04/20) adhesive tape (Verified Allergy, Mild, REDNESS, 03/04/20) Discharge Summary Date of Admission Nov 08, 2021 at 15:15 Date of Discharge Discharge Date: Nov 17, 2021 Discharge Diagnosis Assessment: COVID-19 PNA AECOPD UTI AF Plan: Meds per protocol 11/16/21: DC tomorrow PT OT O2 evaluation MIGEL MCGUIRE DO Nov 17, 2021 12:30
== END 2021-11-17 15:10 | disposition home or self-care (01) | DRG 177 ==
LOC: EDUNIT# 11:17 → ER FS 11:19 → 4TH 15:15
PROVIDERS: ADMIT Family Medicine; ATTEND Internal Medicine
PROC: 8E0ZXY6 Isolation (ICD-10-PCS; principal; 2021-11-08)
DX: U07.1 COVID-19 (principal); J96.01 Acute respiratory failure with hypoxia; J12.82 Pneumonia due to coronavirus disease 2019; I50.21 Acute systolic (congestive) heart failure; J15.9 Unspecified bacterial pneumonia; J44.1 Chronic obstructive pulmonary disease with (acute) exacerbation; N30.00 Acute cystitis without hematuria; I11.0 Hypertensive heart disease with heart failure; I48.0 Paroxysmal atrial fibrillation; B96.20 Unspecified Escherichia coli [E. coli] as the cause of diseases classified elsewhere; K21.9 Gastro-esophageal reflux disease without esophagitis; K59.09 Other constipation; Z79.01 Long term (current) use of anticoagulants; Z79.899 Other long term (current) drug therapy; Z88.0 Allergy status to penicillin; Z88.2 Allergy status to sulfonamides; Z91.09 Other allergy status, other than to drugs and biological substances; Z95.5 Presence of coronary angioplasty implant and graft; Z86.718 Personal history of other venous thrombosis and embolism; Z86.73 Personal history of transient ischemic attack (TIA), and cerebral infarction without residual deficits; Z99.81 Dependence on supplemental oxygen; Z85.528 Personal history of other malignant neoplasm of kidney; Z73.0 Burn-out; Z23 Encounter for immunization
CPT/HCPCS: 36415; 71045; 80053; 81000; 83605; 83690; 83880; 84145; 85025; 85379; 85610; 85730; 86141; 87040; 87077; 87088; 87186; 93005; 93306; 94760; 94761; 96374

== ENCOUNTER 2023-05-26 16:39 | Emergency (ER) | payer MEDICARE, MEDICAID ==
[~2023-05-26] VITALS: Ht 165 cm; Wt 92.0 kg
[~2023-05-26 16:39] MED LIST changes: +ALBU8.5H6 INH; +CLOP-31 PO; -CLOP75TA69 PO; +DEXA6TAB6 PO; +FURO20TA4 PO; +LEVO750T PO; -LEVO750T39 PO; +LISI2.5T13 PO; -LOSA100T57 PO; +LOSA100T58 PO; +POTA-330 PO; -POTA-51 PO; -RT-ALBUINH INH
[2023-05-26] MEDS ORDERED: LIDOCAINE 1% INJ 20 ML VIAL ONE (16:43)
--- NOTE | 2023-05-26 16:50 | ED Upper Extremity ---
General Chief Complaint: Upper Extremity Stated Complaint: RT SHOULDER INJ | FALL Source: patient Exam Limitations: no limitations History of Present Illness Date Seen by Provider: May 26, 2023 Time Seen by Provider: 16:41 Initial Comments 67-year-old female coming in due to right shoulder pain as a referral from urgent care. Reportedly was in a chair, slipped out, landed on her right shoulder. X-ray there concerning for a shoulder dislocation so she was referred here to the ER. This occurred at 3 PM. She did not hit her head or pass out. She denies any neck or back pain. She has been ambulatory since the incident. She is otherwise denying any other acute complaints. Allergies and Home Medications Allergies Coded Allergies: Penicillins (Verified Allergy, Mild, RASH/HIVES, 03/04/20) Sulfa (Sulfonamide Antibiotics) (Verified Allergy, Mild, HIVES/RASH, 03/04/20) adhesive tape (Verified Allergy, Mild, REDNESS, 03/04/20) Patient Home Medication List Home Medication List Reviewed: Yes Amlodipine Besylate (Amlodipine Besylate) 10 Mg Tablet, 10 MG PO HS, (Reported) Entered as Reported by: SAMSON POWERS on 05/28/18920 Apixaban (Eliquis) 5 Mg Tablet, 5 MG PO BID, (Reported) Entered as Reported by: MIKI PURDY on 11/09/21 1253 Atorvastatin Calcium (Atorvastatin Calcium) 40 Mg Tablet, 40 MG PO HS, (Reported) Entered as Reported by: SAMSON POWERS on 05/28/18920 Cetirizine HCl (Cetirizine HCl) 10 Mg Tablet, 10 MG PO DAILY, (Reported) Entered as Reported by: SAMSON POWERS on 05/28/18920 Clopidogrel Bisulfate (Clopidogrel) 75 Mg Tablet, 75 MG PO DAILY, (Reported) Entered as Reported by: MIKI PURDY on 11/09/21 1253 Dexamethasone (Decadron) 6 Mg Tablet, 6 MG PO DAILY Prescribed by: MIGEL MCGUIRE on 11/17/21 1229 Fluticasone Propionate (Fluticasone Propionate) 16 Gm [place].susp, 1-2 SPRAYS NSEACH DAILY PRN for CONGESTION, (Reported) Entered as Reported by: SAMSON POWERS on 07/10/17 1427 Fluticasone/Vilanterol (Breo Ellipta 200-25 Mcg INH) 1 Each Blst.w.dev, 1 PUFF PO DAILY, (Reported) Entered as Reported by: MIKI PURDY on 05/13/19 0825 Furosemide (Furosemide) 20 Mg Tablet, 20 MG PO DAILY, (Reported) Entered as Reported by: MIKI PURDY on 11/09/21 1253 Hydrocodone/Acetaminophen (Hydrocodone-Acetamin 5-325 mg) 5 Mg-325 Mg Tablet, 1 TAB PO Q6H PRN for PAIN-MODERATE (5-7) Prescribed by: JAMES ORR on 05/26/23 1712 Isosorbide Mononitrate (Isosorbide Mononitrate ER) 60 Mg Tab, 120 MG PO HS, (Reported) Entered as Reported by: SAMSON POWERS on 01/23/19 0937 Lisinopril (Lisinopril) 2.5 Mg Tablet, 2.5 MG PO DAILY, (Reported) Entered as Reported by: MIKI PURDY on 11/09/21 1253 Metoprolol Succinate (Metoprolol Succinate) 100 Mg Tab.er.24h, 100 MG PO DAILY, (Reported) Entered as Reported by: MIKI PURDY on 11/09/21 1253 Montelukast Sodium (Montelukast Sodium) 10 Mg Tablet, 10 MG PO HS, (Reported) Entered as Reported by: KELVIN KISER on 03/12/17 1340 Multivitamin (Multiple Vitamins) 1 Each Tablet, 1 EACH PO DAILY, (Reported) Entered as Reported by: KELVIN KISER on 09/04/19 1341 Review of Systems Constitutional: No fever EENTM: no symptoms reported Respiratory: no symptoms reported Cardiovascular: no symptoms reported Gastrointestinal: no symptoms reported Genitourinary: see HPI Musculoskeletal: see HPI Skin: no symptoms reported Psychiatric/Neurological: No Symptoms Reported Past Kuahsrk-Cccfgq-Kltkyq Hx Patient Social History Tobacco Use?: No Use of E-Cig and/or Vaping dev: No Substance use?: No Alcohol Use?: No Pt feels they are or have been: No Immunizations Up To Date Tetanus Booster (TDap): Unknown First/Initial COVID19 Vaccinat: 2020 Second COVID19 Vaccination Mack: 2020 Third COVID19 Vaccination Date: 2020 Seasonal Allergies Seasonal Allergies: Yes Past Medical History Surgery/Hospitalization HX: COPD, CHF, Appendectomy, Stents, Hysterectomy, Stonsillectomy, Wears 2L NC at night, Asthma, COPD, Afib, SCAD,DVT, HTN, Stroke, UTI Chronic, GERD, Constipation, Arthiris, Chronic Back Pain, Anxiety, Depression. Surgeries: Yes Appendectomy, Coronary Stent, Hysterectomy, Tonsillectomy Respiratory: Yes (2L O2 @ HS) Asthma, COPD Currently Using CPAP: No Currently Using BIPAP: No Cardiac: Yes (STENTS) Atrial Fibrillation, Coronary Artery Disease, Deep Vein Thrombosis, Hypertension Neurological: Yes Stroke Reproductive Disorders: No Sexually Transmitted Disease: No HIV/AIDS: No Genitourinary: Yes (Left kidney partially removed d/t cancer) Bladder Infection, UTI-Chronic Gastrointestinal: Yes Gastroesophageal Reflux, Chronic Constipation Musculoskeletal: No Arthritis, Chronic Back Pain Endocrine: No HEENT: No Loss of Vision: Denies Hearing Impairment: Denies Cancer: No Kidney Did You Recieve Any Treatments: Yes What Type of Treatment Did You: Surgical Intervention Psychosocial: Yes Anxiety, Depression Integumentary: No Blood Disorders: No Adverse Reaction/Blood Tranf: No (N/A) Family Medical History Colon cancer G8 BROTHER Diabetes mellitus G8 BROTHER G8 SISTER FHx: heart disease 19 FATHER 19 MOTHER Myocardial infarction 19 FATHER G8 SISTER COPD Physical Exam Vital Signs Vital Signs - First Documented 05/26/23 16:40 Temp 35.6 Pulse 52 Resp 16 B/P (MAP) 159/78 (105) Pulse Ox 96 O2 Delivery Room Air Capillary Refill : Height, Weight, BMI Height: 5'5.00" Weight: 237lbs. 4.0oz. 107.650244ev; 35.00 BMI Method:Stated General Appearance: WD/WN, mild distress HEENT: PERRL/EOMI, normal ENT inspection, pharynx normal Neck: non-tender, full range of motion, supple, normal inspection Cardiovascular: normal peripheral pulses Respiratory: chest non-tender, normal breath sounds, no respiratory distress, no accessory muscle use Gastrointestinal: normal bowel sounds Back: normal inspection, no CVA tenderness, no vertebral tenderness Shoulder: limited ROM (Right shoulder with pain, soft tissue tenderness, and appears to be anteriorly displaced, neurovascularly intact distal to injury, specifically has normal sensation over the right deltoid), pain, soft tissue te nderness Elbow/Forearm: normal inspection, non-tender, no evidence of injury, normal ROM Wrist: Yes normal inspection, Yes non-tender, Yes no evidence of injury, Yes normal ROM Hand: normal inspection, non-tender, no evidence of injury, normal ROM Neurologic/Tendon: normal sensation, normal motor functions, normal tendon functions Neurologic/Psychiatric: no motor/sensory deficits, alert, normal mood/affect Skin: normal color, warm/dry Procedures/Interventions Date of ETT Placement: May 31, 2018 Time of ETT Placement: 1155 Progress/Results/Core Measures Results/Orders My Orders Orders - JAMES ORR MD Lidocaine 1% Inj 20 Ml (Xylocaine 1% Inj (05/26/23 16:43) Shoulder 3 View Right (05/26/23 16:46) Hydrocodone/Apap 5/325 Tablet (Hydrocod (05/26/23 17:15) Medications Given in ED Current Medications Medications Dose Ordered Sig/Jose Route Start Time Stop Time Status Last Admin Dose Admin Acetaminophen/ Hydrocodone Bitart 1 ea ONCE ONCE PO 05/26/23 17:15 05/26/23 17:16 DC 05/26/23 17:12 1 EA Lidocaine HCl 20 ml STK-MED ONCE .ROUTE 05/26/23 16:43 05/26/23 16:45 DC 05/26/23 16:52 20 ML Vital Signs/I&O 05/26/23 05/26/23 16:40 17:15 Temp 35.6 35.6 Pulse 52 52 Resp 16 16 B/P (MAP) 159/78 (105) 159/78 Pulse Ox 96 96 O2 Delivery Room Air Room Air Progress Progress Note : Progress Note 67-year-old female with above history coming in due to concerns for right shoulder dislocation. ABCs were intact and vitals were stable on presentation. Physical exam shows she is neurovascularly intact, has limited range of motion of the right shoulder with tenderness over it. 10 cc of 1% lidocaine were infiltrated into the shoulder joint for pain control. X-ray of the right shoulder ordered and interpreted by me showing a comminuted and displaced proximal humerus fracture with dislocation. Patient was given hydrocodone here as well as a prescription. She was placed in a sling and is to follow-up with orthopedics [facility], likely need surgery. Did some gentle traction to try to lengthen it, unfortunately we will be unable to get the humeral head back into the proper location given the fracture pattern. Additionially, the patient has significant comorbidities and is not a good candidate for ED sedation for attempted reduction, especially given this most certainly will result in a shoulder replacement anyways. The risk outweighs the benefit in this situation where she truly just needs surgery within the next several days to week. She did not hit her head, did not pass out, no neck or back pain, she has been ambulatory without any symptoms such as headache, and no neuro changes. I think a CT of the head and cervical spine are not warranted at this time. I believe she is otherwise stable for discharge with outpatient follow-up. She was sent home with strict return precautions Diagnostic Imaging Diagonstic Imaging: Xray (shoulder) Comments NAME: JAIDEN ZELAYA [facility] REC#: [id number] PT STATUS: REG ER : 1955 PHYSICIAN: JAMES ORR MD ADMIT DATE: 05/26/23/ER FS Draft Date of Exam:05/26/23 SHOULDER 3 VIEW RIGHT HISTORY: Fall with right shoulder pain. TECHNIQUE: 3 views of the right shoulder. COMPARISON: Chest x-ray from 11/16/2021. FINDINGS: There is a transverse fracture through the right surgical neck of the humerus with impaction and superior and anterior displacement of the humeral shaft. There is posterior angulation of the shaft. The fracture extends into the articular surface of the humeral head as well as through the greater tuberosity with lateral displacement of the greater tuberosity. There is mild inferior subluxation of the glenohumeral joint which may be due to a lipohemarthrosis. IMPRESSION: 1. Markedly comminuted, displaced, and impacted fracture of the proximal right humerus. 2. Right shoulder lipohemarthrosis. Dictated on workstation # [id number] Dict: 05/26/231701 Trans: 05/26/231703 [id number] Interpreted by: SUSAN TANG MD Electronically signed by: Departure Impression Primary Impression: Humerus fracture Qualified Codes: S42.291A - Other displaced fracture of upper end of right humerus, initial encounter for closed fracture Additional Impression: Shoulder dislocation Qualified Codes: S43.004A - Unspecified dislocation of right shoulder joint, initial encounter Disposition: 01 HOME, SELF-CARE Condition: Stable Departure-Patient Inst. Decision time for Depature: 17:20 Referrals: ANGELITO CHU MD (PCP/Family) Primary Care Physician SABRINA SPEARS MICHAEL P MD Patient Instructions: Shoulder Fracture Add. Discharge Instructions: The shoulder is unfortunately broken and dislocated. We would be unable to get it back in the joint. Likely would require surgery. Please follow-up with Dr. Richardson in [place]. His colleagues works in [place] and his name is madie Spears, if you can get into him faster, that would be okay as well although he does not do surgeries. Take the hydrocodone as needed for pain. He can also ice the area. Use the sling whenever you are able. Scripts Hydrocodone/Acetaminophen (Hydrocodone-Acetamin 5-325 mg) 5 Mg-325 Mg Tablet 1 TAB PO Q6H PRN for PAIN-MODERATE (5-7) for 4 Days, #16 TAB Prov: JAMES ORR MD 05/26/23 JAMES ORR MD May 26, 2023 16:50
--- NOTE | 2023-05-26 17:05 | Diagnostic Imaging Report ---
HISTORY: Fall with right shoulder pain. TECHNIQUE: 3 views of the right shoulder. COMPARISON: Chest x-ray from 11/16/2021. FINDINGS: There is a transverse fracture through the right surgical neck of the humerus with impaction and superior and anterior displacement of the humeral shaft. There is posterior angulation of the shaft. The fracture extends into the articular surface of the humeral head as well as through the greater tuberosity with lateral displacement of the greater tuberosity. There is mild inferior subluxation of the glenohumeral joint which may be due to a lipohemarthrosis. IMPRESSION: 1. Markedly comminuted, displaced, and impacted fracture of the proximal right humerus. 2. Right shoulder lipohemarthrosis. Dictated by: Dictated on workstation # [id number]
[2023-05-26] MEDS ORDERED: ACHD5005 PO (17:12)
[2023-05-26 17:15] VITALS: BP 159/78
[2023-05-26] MEDS ORDERED: HYDROcodone/ACETAMINOPHEN 5 MG/325 MG TABLET PO ONE (17:15)
== END 2023-05-26 17:17 | disposition home or self-care (01) ==
LOC: EDUNIT# 16:39 → ER FS 16:41
DX: S42.211A Unspecified displaced fracture of surgical neck of right humerus, initial encounter for closed fracture (principal); Z99.81 Dependence on supplemental oxygen; W07.XXXA Fall from chair, initial encounter
CPT/HCPCS: 73030